=== PATIENT | male | born 1955 | race Caucasian/White ===

== ENCOUNTER 2023-05-05 14:37 | Outpatient (REF) | payer OTHER, SELFPAY | END 2023-05-05 14:38 | disposition home or self-care (01) | LOC: HO.LAB 14:37 | PROVIDERS: PCP Nurse Practitioner Family; Visit Provider Internal Medicine Nephrology | DX: I12.9 Hypertensive chronic kidney disease with stage 1 through stage 4 chronic kidney disease, or unspecified chronic kidney disease (principal); N18.31 Chronic kidney disease, stage 3a; N28.1 Cyst of kidney, acquired; Z90.5 Acquired absence of kidney | CPT/HCPCS: 99202 ==

== ENCOUNTER 2023-05-05 14:37 | Outpatient (AMB) | payer OTHER, SELFPAY ==
--- NOTE | 2023-05-05 14:41 | HO.NEPHOV ---
HPI HPI Comments History of Present Illness Details I had the delight of seeing Bobo in consultation for his chronic kidney disease. He has history of prostate cancer in 2020 which has been treated with external radiation beam therapy. Subsequently was found to have right renal mass and underwent right nephrectomy. He now has a nonmalignant cystic lesion on the left kidney. He was known to have lung nodules which are not metastatic lesions. He has no B symptoms. He closely follows up with Dr. Billy. He does not have any hematuria, dysuria, flank pain, night sweats, weight loss, fever. His serum creatinine has been going up. He does not take nonsteroidal anti-inflammatories on a regular basis. He is known to be hypertensive and is on amlodipine and losartan. He has not a diabetic. He denies chest pain, shortness of breath, paroxysmal nocturnal dyspnea, orthopnea, pedal edema, epistaxis, hemoptysis, photosensitivity, skin rashes, recurrent sinusitis, sore throat, new bone or back pain. He has no history of hepatitis. He is concerned about his decline in renal functions. [facility] Medical History (Updated 05/30/23 @ 07:05 by Mohamud Mancera MD) Benign neoplasm of unspecified kidney Personal history of malignant neoplasm of renal pelvis Personal history of malignant neoplasm of prostate Nocturia Benign prostatic hyperplasia with lower urinary tract symptoms Surgical History (Updated 05/05/23 @ 14:48 by Ni Mary MA) H/O total adrenalectomy History of nephrectomy, right History of tonsillectomy Family History (Updated 05/05/23 @ 13:19 by Ni Mary MA) Mother Hypertension Father Hypertension Leukemia Prostate cancer Social History (Updated 05/05/23 @ 14:48 by Ni Mary MA) Alcohol intake: current Comment: Rare Patient Tobacco Use Status: Never used Tobacco Vital Signs 05/05/23 14:44 Height 5 ft 10 in Weight 259 lb 6 oz BMI 37.2 BP 154/84 H Blood Pressure Location Rt brachial Position Sitting Pulse 90 Pulse Source Pulse Oximeter Pulse Oximetry (%) 98 Oxygen Delivery Method Room Air Physical Exam Vital Signs: Last Vital Signs Pulse 90 05/05/23 14:44 BP 154/84 H 05/05/23 14:44 Pulse Ox 98 05/05/23 14:44 Oxygen Delivery Method Room Air 05/05/23 14:44 BMI result Body Mass Index 37.2 Const General: comfortable and no acute distress Orientation/consciousness: patient oriented x3 HEENT Head: Yes normocephalic Mouth: Normal oral and palatal mucosa present Eyes EOM: EOMs intact bilaterally Neck Neck: Yes supple Resp Auscultation: clear to auscultation bilaterally Cardio Jugular venous distension: no JVD Rate: regular rate GI Palpation (GI): Soft to palpation Auscultation: normal bowel sounds General: Yes no CVA tenderness Back/Spine/Pelvis Back: no CVA tenderness Skin General skin exam: no rashes or lesions noted Neuro General: patient oriented x3 and moves all extremities Extrem General: Yes no pedal edema Assessment & Plan Assessment & Plan (1) CKD (chronic kidney disease) stage 3, GFR 30-59 ml/min: Code(s): N18.30 - Chronic kidney disease, stage 3 unspecified Qualifiers: Chronic kidney disease stage 3 subtype: stage 3a (GFR 45-59) Qualified Code(s): N18.31 - Chronic kidney disease, stage 3a (2) Hypertension: Code(s): I10 - Essential (primary) hypertension Qualifiers: Hypertension type: primary hypertension Qualified Code(s): I10 - Essential (primary) hypertension (3) Solitary kidney, acquired: Code(s): Z90.5 - Acquired absence of kidney (4) Renal cyst, acquired, left: Code(s): N28.1 - Cyst of kidney, acquired Plan Bobo has acquired solitary kidney status post right nephrectomy for renal cell carcinoma. He has history of prostate cancer. He has no metastatic lesions. He is closely followed by Dr. Billy. His urine output is good. His volume status is optimal. His blood pressure is at goal. He is tolerating angiotensin receptor cathy. He has not known to have any significant proteinuria. I shall follow-up his blood work and renal imaging studies. I ordered creatinine clearance. He should maintain good hydration and avoid nonsteroidal anti-inflammatories. He will benefit from weight loss. I did not make any medication changes today. All these have been discussed in detail. Further management is pending evolving data. Answered all questions. Orders: Orders US renal BI 05/05/23 N18.30 - Chronic kidney disease, stage 3 unspecified, I10 - Essential (primary) hypertension Blood Urea Nitrogen 05/08/23 I10 - Essential (primary) hypertension, N18.30 - Chronic kidney disease, stage 3 unspecified Complete Blood Count Auto Diff 05/08/23 I10 - Essential (primary) hypertension, N18.30 - Chronic kidney disease, stage 3 unspecified Complement C3 05/08/23 I10 - Essential (primary) hypertension, N18.30 - Chronic kidney disease, stage 3 unspecified Complement C4 05/08/23 I10 - Essential (primary) hypertension, N18.30 - Chronic kidney disease, stage 3 unspecified Phospholipase A2 Receptor Pnl 05/08/23 I10 - Essential (primary) hypertension, N18.30 - Chronic kidney disease, stage 3 unspecified Hepatitis B Core Antibody 05/08/23 I10 - Essential (primary) hypertension, N18.30 - Chronic kidney disease, stage 3 unspecified Creatinine Clearance Urine 05/08/23 I10 - Essential (primary) hypertension, N18.30 - Chronic kidney disease, stage 3 unspecified US renal doppler 05/05/23 N18.30 - Chronic kidney disease, stage 3 unspecified, I10 - Essential (primary) hypertension Electrolytes 05/08/23 I10 - Essential (primary) hypertension, N18.30 - Chronic kidney disease, stage 3 unspecified Calcium 05/08/23 I10 - Essential (primary) hypertension, N18.30 - Chronic kidney disease, stage 3 unspecified Creatinine 05/08/23 I10 - Essential (primary) hypertension, N18.30 - Chronic kidney disease, stage 3 unspecified Myeloperoxidase Antibody 05/08/23 I10 - Essential (primary) hypertension, N18.30 - Chronic kidney disease, stage 3 unspecified Proteinase 3 PR3 Antibodies 05/08/23 I10 - Essential (primary) hypertension, N18.30 - Chronic kidney disease, stage 3 unspecified Anti Glomerular Basement Memb 05/08/23 I10 - Essential (primary) hypertension, N18.30 - Chronic kidney disease, stage 3 unspecified Immunofixation Pnl, Serum 05/08/23 I10 - Essential (primary) hypertension, N18.30 - Chronic kidney disease, stage 3 unspecified Hepatitis B Surface Antigen 05/08/23 I10 - Essential (primary) hypertension, N18.30 - Chronic kidney disease, stage 3 unspecified Coding Level of Care Code New Pt Level 4 (56225) Diagnoses Stage 3a chronic kidney disease N18.31 Chronic kidney disease stage 3 subtype: stage 3a (GFR 45-59) Primary hypertension I10 Hypertension type: primary hypertension Solitary kidney, acquired Z90.5 Renal cyst, acquired, left N28.1 Results Reviewed Nephrology Results: Hgb 13.9 g/dl (14.0-18.0) L 05/08/23 WBC 5.9 X10*3/uL (4.8-10.8) 05/08/23 Plt Count 148 X10*3/uL (160-400) L 05/08/23 Sodium 139 mmol/L (135-145) 05/08/23 Potassium 4.7 mmol/L (3.3-5.1) 05/08/23 Chloride 108 mmol/L (96-108) 05/08/23 Carbon Dioxide 22 mmol/L (22-29) 05/08/23 BUN 24 mg/dL (9-16) H 05/08/23 Creatinine 1.68 mg/dL (0.5-1.4) H 05/08/23 Calcium 9.1 mg/dL (8.4-10.2) 05/08/23 Renal US 05/19/23
[2023-05-05 14:44] VITALS: BP 154/84; PULSE 90; O2SAT 98; BMI 37.2
== END 2023-05-05 15:26 | disposition home or self-care (01) ==
PROVIDERS: PCP Nurse Practitioner Family; Referring Provider Internal Medicine Endocrinology, Diabetes & Metabolism; Visit Provider Internal Medicine Nephrology
DX: N18.31 Chronic kidney disease, stage 3a (principal); I10 Essential (primary) hypertension; Z90.5 Acquired absence of kidney; N28.1 Cyst of kidney, acquired
CPT/HCPCS: 99204

== ENCOUNTER 2023-05-08 09:48 | Outpatient (REF) | payer OTHER, SELFPAY ==
[2023-05-08 11:02] LABS: Basophils Absolute Auto 0.1 X10*3/uL (0.0-0.2); Eosinophils Absolute Auto 0.2 X10*3/uL (0.0-0.4); Eosinophils Percent Auto 2.9 % (0-4); Hematocrit 41.3 % (42.0-52.0); Hemoglobin 13.9 g/dl (14.0-18.0); Imm Gran Abs Auto 0.03 X10*3/uL (0.00-0.03); Imm Gran Pct Auto 0.5 % (0.0-0.4); Lymphocytes Absolute Auto 1.4 X10*3/uL (1.2-4.9); Lymphocytes Percent Auto 24.4 % (20-40); MANUAL DIFF FLAG SCAN; Mean Corpuscular HGB Conc 33.7 g/dl (31.0-36.0); Mean Corpuscular Hemoglobin 30.6 pg (27.0-33.0); Mean Platelet Volume 11.9 fL (9.4-12.4); Monocytes Absolute Auto 0.5 X10*3/uL (0.1-1.2); Monocytes Percent Auto 7.7 % (2-11); Neutrophils Absolute Auto 3.7 x10*3/uL (2.0-8.3); Neutrophils Percent Auto 63.5 % (45-73); PLT CLUMP 1; Red Blood Count 4.54 X10*6/uL (4.60-5.80); Red Cell Distribution Width 13.2 % (11.0-16.0); SCAN SMEAR FLAG 1
[2023-05-08 11:33] LABS: Creatinine, mg/dL 51.93
[2023-05-08 12:36] LABS: Platelet Count 148 X10*3/uL (160-400); White Blood Count 5.9 X10*3/uL (4.8-10.8)
[2023-05-08 12:37] LABS: SLIDE REVIEW VERIFIED
[2023-05-08 13:21] LABS: Anion Gap 14 (12-20); Blood Urea Nitrogen 24 mg/dL (9-16); Calcium 9.1 mg/dL (8.4-10.2); Carbon Dioxide 22 mmol/L (22-29); Chloride 108 mmol/L (96-108); Estimated Glomerular Filt Rate 41; Potassium 4.7 mmol/L (3.3-5.1); Sodium 139 mmol/L (135-145)
[2023-05-08 13:23] LABS: Creatinine, 24Hr Urine 1.8 G/Day (1.0-2.0); Total Volume 24 Hour Urine 3500 mL
[2023-05-08 13:44] LABS: Creatinine (CrCl) 1.68 mg/dL (0.5-1.4); Creatinine Clearance 75.1 mL/min (85-125)
[2023-05-09 04:48] LABS: HBc Num1 0.06 S/CO (0.00-0.79); HBsAGNum1 0.28 S/CO (0.00-0.99); Hepatitis B Core Antibody Nonreactive (Nonreactive); Hepatitis B Surface Antigen Negative (Negative)
[2023-05-09 10:04] LABS: Complement C3 126 mg/dL (82-185)
[2023-05-10 14:28] LABS: IgA 295 mg/dL (70-320); IgG 837 mg/dL (600-1540); IgM 94 mg/dL (50-300)
[2023-05-11 22:14] LABS: Anti Glomerular Basement Memb <1.0 AI; Myeloperoxidase Antibody <1.0 AI; Proteinase 3 PR3 Antibodies <1.0 AI
[2023-05-12 20:52] LABS: Phospholipase A2 IgG ELISA <4 RU/mL; Phospholipase A2 IgG IFA NEGATIVE (NEGATIVE)
== END 2023-05-08 09:49 | disposition home or self-care (01) ==
LOC: HO.LAB 09:48
PROVIDERS: PCP Nurse Practitioner Family; Visit Provider Internal Medicine Nephrology
DX: I12.9 Hypertensive chronic kidney disease with stage 1 through stage 4 chronic kidney disease, or unspecified chronic kidney disease (principal); N18.30 Chronic kidney disease, stage 3 unspecified
CPT/HCPCS: 36415; 80051; 82310; 82565; 82575; 82784; 83520; 84520; 85025; 86021; 86160; 86255; 86334; 86704; 87340

== ENCOUNTER 2023-05-19 09:11 | Outpatient (REF) | payer OTHER, SELFPAY ==
--- NOTE | ~2023-05-19 | US_ITS ---
EXAMINATION: US RETROPERITONEAL LIMITED (RENAL ONLY) CLINICAL INFORMATION: Stage III chronic kidney disease. COMPARISON: None available. TECHNIQUE: Real-time ultrasound examination of the kidneys FINDINGS: RIGHT KIDNEY: Surgically absent. LEFT KIDNEY: 12.5 x 7.4 x 5.0 cm (SAG x AP x TRV). The kidney is normal in size, contour, and echogenicity. Renal cortical thickness is normal. No calculi could be seen. No hydronephrosis. Multiple left renal cortical simple cysts are found. The largest cyst is found in superior left renal cortex measuring 4.3 x 3.3 x 3.5 cm in size. The second largest simple cyst is seen in mid left kidney measuring 3.0 x 1.5 x 1.9 cm in size. A small, septated cyst is seen in mid left kidney measuring 1.1 x 1.3 x 1.0 cm in size, Bosniak category 2 lesion, for which no follow up imaging is recommended. US/US renal doppler IMPRESSION: 1. Status post right nephrectomy. 2. Multiple left renal cortical Bosniak category 1 and category 2 cystic lesions are found, for which no follow up imaging is recommended. 3. No evidence of left hydronephrosis or renal calculus. EXAMINATION: Doppler Ultrasound of the renal arteries. INDICATION: Stage III chronic kidney disease. TECHNIQUE: Multiple sonographic images of the kidneys were assessed for grayscale appearance and color Doppler flow. Color Doppler imaging and Doppler spectral analysis of the bilateral renal arteries are performed. FINDINGS: Right kidney is surgically absent. Left kidney is 12.5 cm in length with normal echo texture. No calcified renal stones with acoustic shadowing or caliectasis are seen. The left proximal renal artery peak systolic flow velocity is 66 cm/sec (normal < 180). The left mid renal artery peak systolic flow velocity is 82 cm/sec (normal < 180). The left distal renal artery peak systolic flow velocity is 93 cm/sec (normal < 180). The upper left renal artery resistive index is 0.63 (normal <0.8) The mid left renal artery resistive index is 0.58 (normal <0.8) The lower left renal artery resistive index is 0.64 (normal <0.8) Left renal vein is patent, showing normal phasic venous Doppler flow spectrum. IMPRESSION: 1. Status post right nephrectomy. 2. No sonographic evidence of left renal artery stenosis.
== END 2023-05-19 09:12 | disposition home or self-care (01) ==
LOC: HO.US 09:11
PROVIDERS: PCP Nurse Practitioner Family; Visit Provider Internal Medicine Nephrology
DX: I12.9 Hypertensive chronic kidney disease with stage 1 through stage 4 chronic kidney disease, or unspecified chronic kidney disease (principal); N18.30 Chronic kidney disease, stage 3 unspecified
CPT/HCPCS: 76775; 93975

== ENCOUNTER 2023-05-31 14:12 | Outpatient (AMB) | payer OTHER, SELFPAY ==
[2023-05-31 14:17] VITALS: BP 150/90; PULSE 86; O2SAT 95; BMI 38.0
--- NOTE | 2023-05-31 14:17 | HO.NEPHOV ---
HPI HPI Comments History of Present Illness Details I had the delight of seeing Bobo in follow up for his chronic kidney disease. He has history of prostate cancer in 2020 which has been treated with external radiation beam therapy. Subsequently was found to have right renal mass and underwent right nephrectomy. He now has a nonmalignant cystic lesion on the left kidney. He was known to have lung nodules which are not metastatic lesions. He has no B symptoms. He closely follows up with Dr. Billy. He does not have any hematuria, dysuria, flank pain, night sweats, weight loss, fever. His serum creatinine had been going up. He does not take nonsteroidal anti-inflammatories on a regular basis. He is known to be hypertensive and is on amlodipine and losartan. He has not a diabetic. He denies chest pain, shortness of breath, paroxysmal nocturnal dyspnea, orthopnea, pedal edema, epistaxis, hemoptysis, photosensitivity, skin rashes, recurrent sinusitis, sore throat, new bone or back pain. He has no history of hepatitis. He is concerned about his decline in renal functions. [facility] Medical History (Updated 05/30/23 @ 07:05 by Mohamud Mancera MD) Benign neoplasm of unspecified kidney Personal history of malignant neoplasm of renal pelvis Personal history of malignant neoplasm of prostate Nocturia Benign prostatic hyperplasia with lower urinary tract symptoms Surgical History (Updated 05/05/23 @ 14:48 by Ni Mary MA) H/O total adrenalectomy History of nephrectomy, right History of tonsillectomy Family History (Updated 05/05/23 @ 13:19 by Ni Mary MA) Mother Hypertension Father Hypertension Leukemia Prostate cancer Social History (Updated 05/05/23 @ 14:48 by Ni Mary MA) Alcohol intake: current Comment: Rare Patient Tobacco Use Status: Never used Tobacco Vital Signs 05/31/23 14:17 Height 5 ft 10 in Weight 265 lb 2 oz BMI 38.0 BP 150/90 H Blood Pressure Location Lt brachial Position Sitting Pulse 86 Pulse Source Pulse Oximeter Pulse Oximetry (%) 95 Oxygen Delivery Method Room Air Physical Exam Const General: comfortable and no acute distress Orientation/consciousness: patient oriented x3 HEENT Head: Yes normocephalic Mouth: Normal oral and palatal mucosa present Eyes EOM: EOMs intact bilaterally Neck Neck: Yes supple Resp Auscultation: clear to auscultation bilaterally Cardio Jugular venous distension: no JVD Rate: regular rate GI Palpation (GI): Soft to palpation Auscultation: normal bowel sounds General: Yes no CVA tenderness Back/Spine/Pelvis Back: no CVA tenderness Skin General skin exam: no rashes or lesions noted Neuro General: patient oriented x3 and moves all extremities Extrem General: Yes no pedal edema Assessment & Plan Assessment & Plan (1) Renal cyst, acquired, left: Code(s): N28.1 - Cyst of kidney, acquired (2) Solitary kidney, acquired: Code(s): Z90.5 - Acquired absence of kidney (3) Hypertension: Code(s): I10 - Essential (primary) hypertension Qualifiers: Hypertension type: primary hypertension Qualified Code(s): I10 - Essential (primary) hypertension (4) CKD (chronic kidney disease) stage 3, GFR 30-59 ml/min: Code(s): N18.30 - Chronic kidney disease, stage 3 unspecified Qualifiers: Chronic kidney disease stage 3 subtype: stage 3a (GFR 45-59) Qualified Code(s): N18.31 - Chronic kidney disease, stage 3a Plan Bobo has acquired solitary kidney status post right nephrectomy for renal cell carcinoma. He has history of prostate cancer. He has no metastatic lesions. He is closely followed by Dr. Billy. His urine output is good. His volume status is optimal. His blood pressure is at goal. He is tolerating angiotensin receptor cathy. He has not known to have any significant proteinuria. His renal functions are back to baseline. He does not have any renal artery stenosis by imaging. His creatinine clearance was 75 mL/minute. He should maintain good hydration and avoid nonsteroidal anti-inflammatories. He will benefit from weight loss. I did not make any medication changes today. All these have been discussed in detail. Further management is pending evolving data. Answered all questions. Orders: Orders Creatinine Today I10 - Essential (primary) hypertension, N18.31 - Chronic kidney disease, stage 3a, N28.1 - Cyst of kidney, acquired, Z90.5 - Acquired absence of kidney Calcium Today I10 - Essential (primary) hypertension, N18.31 - Chronic kidney disease, stage 3a, N28.1 - Cyst of kidney, acquired, Z90.5 - Acquired absence of kidney Blood Urea Nitrogen Today I10 - Essential (primary) hypertension, N18.31 - Chronic kidney disease, stage 3a, N28.1 - Cyst of kidney, acquired, Z90.5 - Acquired absence of kidney Electrolytes Today I10 - Essential (primary) hypertension, N18.31 - Chronic kidney disease, stage 3a, N28.1 - Cyst of kidney, acquired, Z90.5 - Acquired absence of kidney Protein Creatinine Ratio, Ur Today I10 - Essential (primary) hypertension, N18.31 - Chronic kidney disease, stage 3a, N28.1 - Cyst of kidney, acquired, Z90.5 - Acquired absence of kidney Coding Level of Care Code Est Pt Level 4 (94755) Diagnoses Renal cyst, acquired, left N28.1 Solitary kidney, acquired Z90.5 Primary hypertension I10 Hypertension type: primary hypertension Stage 3a chronic kidney disease N18.31 Chronic kidney disease stage 3 subtype: stage 3a (GFR 45-59) Results Reviewed Nephrology Results: Hgb 13.9 g/dl (14.0-18.0) L 05/08/23 WBC 5.9 X10*3/uL (4.8-10.8) 05/08/23 Plt Count 148 X10*3/uL (160-400) L 05/08/23 Sodium 139 mmol/L (135-145) 05/08/23 Potassium 4.7 mmol/L (3.3-5.1) 05/08/23 Chloride 108 mmol/L (96-108) 05/08/23 Carbon Dioxide 22 mmol/L (22-29) 05/08/23 BUN 24 mg/dL (9-16) H 05/08/23 Creatinine 1.68 mg/dL (0.5-1.4) H 05/08/23 Calcium 9.1 mg/dL (8.4-10.2) 05/08/23 Renal US 05/19/23
== END 2023-05-31 14:31 | disposition home or self-care (01) ==
PROVIDERS: PCP Nurse Practitioner Family; Visit Provider Internal Medicine Nephrology
DX: N28.1 Cyst of kidney, acquired (principal); Z90.5 Acquired absence of kidney; I10 Essential (primary) hypertension; N18.31 Chronic kidney disease, stage 3a
CPT/HCPCS: 99214

== ENCOUNTER → 2023-05-31 14:12 | Outpatient (BNVA) | payer OTHER, SELFPAY | PROVIDERS: PCP Nurse Practitioner Family; Visit Provider Internal Medicine Nephrology | DX: I12.9 Hypertensive chronic kidney disease with stage 1 through stage 4 chronic kidney disease, or unspecified chronic kidney disease (principal); N18.31 Chronic kidney disease, stage 3a; N28.1 Cyst of kidney, acquired; Z90.5 Acquired absence of kidney | CPT/HCPCS: 99212 ==

== ENCOUNTER 2023-09-01 14:09 | Outpatient (REF) | payer OTHER, SELFPAY ==
--- NOTE | ~2023-09-01 | MR_ITS ---
EXAMINATION: MR ABDOMEN WITHOUT AND WITH CONTRAST CLINICAL INFORMATION: History of kidney cancer with right nephrectomy. COMPARISON: Renal ultrasound 05/19/2023. TECHNIQUE: MR abdomen was performed without and with use of 10 mL intravenous Gadavist gadolinium contrast. Postcontrast images are performed in multiphase dynamic sequences. Imaging was performed in 3 planes. FINDINGS: LUNG BASES: The visualized lung bases are unremarkable. LIVER, GALLBLADDER, AND BILIARY TREE: Loss of signal in the opposed phase dual-echo images consistent with hepatic steatosis, otherwise the liver is normal in size and morphology. A few simple-appearing cysts are seen. No suspicious liver lesion. No biliary ductal dilatation. The gallbladder is unremarkable with no evidence of gallbladder wall thickening, or obvious pericholecystic inflammatory changes. PANCREAS: Incidentally noted pancreatic divisum anatomy with the main dorsal pancreatic duct draining into a separate minor duodenal papilla (image 26 series 4). Otherwise, normal pancreas. SPLEEN: Normal. ADRENAL GLANDS: The right adrenal gland is not well seen, possibly surgically removed. Normal left adrenal gland. KIDNEYS AND URETERS: Status post right-sided total nephrectomy. There is a 1.2 x 0.7 cm T2 hypointense nodule with peripheral delayed enhancement in the postoperative bed immediately abutting the posterior wall of the descending duodenum (102:66). In the lower pole of the left kidney, there is a 2.5 x 2.4 cm enhancing lesion (102:97) demonstrating heterogeneous intermediate T2 signal and heterogeneous enhancement that is more prominent on the arterial phase with relative hypointensity compared to the cortex on the portal venous phase and no evidence of fat or proteinaceous/hemorrhagic debris. In the lower pole of the left kidney there is an approximately 7.8 x 6.4 cm macroscopic fat-containing lesion that extends around the kidney in the perirenal space with direct capsular abutment. Although a clear renal claw sign or feeding vessel is not seen. There is a well-defined homogeneously precontrast T1 hyperintense exophytic cyst from the lateral cortex of the upper left kidney measuring 4.4 cm, most consistent with a proteinaceous/hemorrhagic Bosniak 2 cyst, for which no imaging follow-up is recommended. Multiple additional simple-appearing Bosniak 1 cortical cysts are noted in the left kidney. GASTROINTESTINAL TRACT: No evidence of bowel obstruction or ascites. ABDOMINAL WALL: No significant hernia is appreciated. LYMPH NODES: No lymphadenopathy. VASCULAR: Normal caliber of the abdominal aorta. The renal veins are patent. OSSEOUS STRUCTURES: No acute or aggressive-appearing osseous findings. MR/MR abdomen wo/w con IMPRESSION: 1. Status post right-sided total nephrectomy. There is a 1.2 cm peripherally enhancing nodule in the postoperative bed immediately abutting the posterior wall of the descending duodenum which could represent postoperative fibrosis/collection or small recurrent tumor. This is the first baseline postoperative MRI available. Recommend short-term follow-up in 3-6 months. 2. Enhancing 2.5 cm mass in the lower pole of the left kidney consistent with a solid renal neoplasms such as renal cell carcinoma. 3. 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 Further characterization with CT abdomen with IV contrast might be helpful. 4. Hepatic steatosis. 5. Incidentally noted pancreatic divisum anatomy.
[2023-09-01] MEDS: gadobutroL 10 ML VIAL IVPUSH (15:36)
== END 2023-09-01 14:10 | disposition home or self-care (01) ==
LOC: HO.MRI 14:09
PROVIDERS: PCP Internal Medicine; Visit Provider Physician Assistant
DX: D30.00 Benign neoplasm of unspecified kidney (principal); Z85.53 Personal history of malignant neoplasm of renal pelvis
CPT/HCPCS: 74183; A9585

== ENCOUNTER 2023-10-21 19:57 | Outpatient (REF) | payer OTHER, SELFPAY ==
--- NOTE | ~2023-10-21 | MR_ITS ---
EXAMINATION: MR BRAIN WITHOUT CONTRAST CLINICAL INFORMATION: Decreased memory COMPARISON: None TECHNIQUE: Multiplanar multisequence MR imaging of the brain was obtained without intravenous contrast. FINDINGS: There is no acute infarct on diffusion-weighted imaging. There is no intracranial hemorrhage on iron-sensitive imaging. No extra-axial collection or mass effect/herniation. Scattered periventricular and deep white matter T2 FLAIR hyperintensities consistent with mild underlying microangiopathy. Small chronic lacunar infarcts in the right cerebellar hemisphere. Small region of nonspecific patchy T2/FLAIR hyperintense signal in the right cerebellar deep white matter (series 8 image 6). No hydrocephalus. Mild age-appropriate generalized cerebral volume loss with commensurate sulcal and ventricular prominence. The major flow voids at the skull base are preserved. The midline structures are normal. The cerebellar tonsils are normally positioned. The craniocervical junction is normal. Marrow signal is within normal limits. The visualized soft tissues are without significant abnormality. Retention cysts are noted in the sphenoid sinus. Small bilateral mastoid fluid, left greater than right. MR/MR head/brain wo con IMPRESSION: 1. Mild chronic white matter microangiopathy and small chronic lacunar infarcts in the right cerebellar hemisphere. Small region of patchy T2/FLAIR hyperintense signal in the right cerebellar deep white matter is nonspecific but may also reflect sequela of chronic microvascular ischemia. 2. Mild age-appropriate generalized cerebral volume loss. Electronically signed by: Calderon Funes MD 10/24/2023 06:18 PM EDT
== END 2023-10-21 19:58 | disposition home or self-care (01) ==
LOC: HO.MRI 19:57
PROVIDERS: PCP Internal Medicine; Visit Provider Internal Medicine
DX: I69.911 Memory deficit following unspecified cerebrovascular disease (principal)
CPT/HCPCS: 70551

== ENCOUNTER 2023-10-28 09:16 | Outpatient (REF) | payer OTHER, SELFPAY ==
[2023-10-28 10:56] LABS: Anion Gap 12 (12-20); Blood Urea Nitrogen 22 mg/dL (9-16); Calcium 9.5 mg/dL (8.4-10.2); Carbon Dioxide 23 mmol/L (22-29); Chloride 107 mmol/L (96-108); Estimated Glomerular Filt Rate 36; Potassium 4.1 mmol/L (3.3-5.1); Sodium 138 mmol/L (135-145)
== END 2023-10-28 09:17 | disposition home or self-care (01) ==
LOC: HO.LAB 09:16
PROVIDERS: PCP Internal Medicine; Visit Provider Internal Medicine Nephrology
DX: I10 Essential (primary) hypertension (principal); N18.30 Chronic kidney disease, stage 3 unspecified; N18.31 Chronic kidney disease, stage 3a; Z90.5 Acquired absence of kidney; N28.1 Cyst of kidney, acquired
CPT/HCPCS: 36415; 80051; 82310; 82565; 84520

== ENCOUNTER 2023-10-30 | Outpatient (REF) | payer OTHER, SELFPAY ==
[2023-10-31 08:59] LABS: Creatinine Urine 46.55 mg/dL; Protein/Creatinine Ratio, Ur 0.71 (<0.2); Total Protein Urine Random 33 mg/dL (<12)
== END 2023-10-30 00:01 | disposition home or self-care (01) ==
LOC: HO.LNP
PROVIDERS: Visit Provider Internal Medicine Nephrology
DX: N28.1 Cyst of kidney, acquired (principal); Z90.5 Acquired absence of kidney; I10 Essential (primary) hypertension; N18.31 Chronic kidney disease, stage 3a
CPT/HCPCS: 82570; 84156

== ENCOUNTER 2023-10-31 12:59 | Outpatient (AMB) | payer OTHER, SELFPAY ==
--- NOTE | 2023-10-31 13:06 | HO.NEPHOV_ITS ---
Vital Signs 10/31/23 13:07 Height 5 ft 10 in Weight 255 lb BMI 36.6 BP 116/70 Blood Pressure Location Lt brachial Position Sitting Pulse 83 Pulse Source Pulse Oximeter Pulse Oximetry (%) 96 Oxygen Delivery Method Room Air Intake Visit Reasons: CKD FU/ Conf Circuit Board Inspector Required: No Accompanied by: Self / Same As Patient Allergies No Known Allergies Allergy (Verified 10/31/23 13:09) Medication List - Last Reconciled 10/31/23 by Noel Rosales MD amlodipine 10 mg PO DAILY aripiprazole 5 mg PO DAILY losartan 25 mg PO DAILY multivitamin 1 tab PO DAILY simvastatin 80 mg PO QDAY venlafaxine ER 150 mg PO DAILY vitamins A,C,N-htxk-ibrjez 4,296 mcg-226 mg-90 mg (ICaps AREDS) 1 cap PO DAILY HPI Comments Details: Bobo was today for semiannual follow-up. he has history of prostate cancer in 2019 which has been treated with external radiation beam therapy. Subsequently was found to have right renal mass and underwent right nephrectomy. He now has a nonmalignant cystic lesion on the left kidney. He was known to have lung nodules which are not metastatic lesions. He has no B symptoms. He closely follows up with Dr. Billy. He does not have any hematuria, dysuria, flank pain, night sweats, weight loss, fever. His serum creatinine had been going up. He does not take nonsteroidal anti- inflammatories on a regular basis. He is known to be hypertensive and is on amlodipine and losartan. He has not a diabetic. He denies chest pain, shortness of breath, paroxysmal nocturnal dyspnea, orthopnea, pedal edema, epistaxis, hemoptysis, photosensitivity, skin rashes, recurrent sinusitis, sore throat, new bone or back pain. He has no history of hepatitis. He is concerned about his decline in renal functions. [facility] Medical History (Updated 05/30/23 @ 07:05 by Mohamud Mancera MD) Benign neoplasm of unspecified kidney Personal history of malignant neoplasm of renal pelvis Personal history of malignant neoplasm of prostate Nocturia Benign prostatic hyperplasia with lower urinary tract symptoms Surgical History H/O total adrenalectomy History of nephrectomy, right History of tonsillectomy Family History Mother Hypertension Father Hypertension Leukemia Prostate cancer Social History Alcohol intake: current Comment: Rare Patient Tobacco Use Status: Never used Tobacco Physical Exam Vital Signs: Last Vital Signs Pulse 83 10/31/23 13:07 BP 116/70 10/31/23 13:07 Pulse Ox 96 10/31/23 13:07 Oxygen Delivery Method Room Air 10/31/23 13:07 BMI result Body Mass Index 36.6 Const General: comfortable; No acute distress Orientation/consciousness: patient oriented x3 Eyes General: appearance normal, both eyes and all related structures Visual Stein: normal visual stein by confrontation Neck Neck: Yes supple and Yes no JVD Resp Effort & Inspection: normal respiratory effort and respiratory effort not decreased Auscultation: rhonchi Cardio Palpation: no palpable S3 and no palpable S4 Heart sounds: no rubs GI Inspection: Yes normal to inspection Palpation (GI): Soft to palpation Percussion: Yes normal to percussion Auscultation: normal bowel sounds General: Yes no CVA tenderness Back/Spine/Pelvis Back: no CVA tenderness Skin General skin exam: no petechiae and no purpura Neuro General: patient oriented x3 and no focal motor deficits Extrem General: No clubbing and No edema Results Reviewed Nephrology Results: Hgb 13.9 g/dl (14.0-18.0) L 05/08/23 WBC 5.9 X10*3/uL (4.8-10.8) 05/08/23 Plt Count 148 X10*3/uL (160-400) L 05/08/23 Sodium 138 mmol/L (135-145) 10/28/23 Potassium 4.1 mmol/L (3.3-5.1) 10/28/23 Chloride 107 mmol/L (96-108) 10/28/23 Carbon Dioxide 23 mmol/L (22-29) 10/28/23 BUN 22 mg/dL (9-16) H 10/28/23 Creatinine 1.85 mg/dL (0.5-1.4) H 10/28/23 Calcium 9.5 mg/dL (8.4-10.2) 10/28/23 Urine Creatinine 46.55 mg/dL 10/30/23 Protein/Creatinin Ratio 0.71 (<0.2) H 10/30/23 Renal US 05/19/23 Assessment & Plan Assessment & Plan (1) CKD (chronic kidney disease) stage 3, GFR 30-59 ml/min: Code(s): N18.30 - Chronic kidney disease, stage 3 unspecified Category: Medical Qualifiers: Chronic kidney disease stage 3 subtype: stage 3a (GFR 45-59) Qualified Code(s): N18.31 - Chronic kidney disease, stage 3a (2) Solitary kidney, acquired: Code(s): Z90.5 - Acquired absence of kidney Category: Medical (3) Renal cyst, acquired, left: Code(s): N28.1 - Cyst of kidney, acquired Category: Medical (4) Hypertension: Code(s): I10 - Essential (primary) hypertension Category: Medical Qualifiers: Hypertension type: primary hypertension Qualified Code(s): I10 - Essential (primary) hypertension Plan Bobo has acquired solitary kidney status post right nephrectomy for renal cell carcinoma. He has history of prostate cancer. He has no metastatic lesions. He is closely followed by Dr. Billy. His urine output is good. His volume status is optimal. His blood pressure is at goal. He is tolerating angiotensin receptor cathy. He has not known to have any significant proteinuria. Mild bump in serum creatinine. Most likely due to altered hemodynamics versus natural progression. He does not have any renal artery stenosis by imaging. . He should maintain good hydration and avoid nonsteroidal anti-inflammatories. He will benefit from weight loss. I did not make any medication changes today. Orders: Orders Basic Metabolic Panel 6 Months N18.31 - Chronic kidney disease, stage 3a, N28.1 - Cyst of kidney, acquired, Z90.5 - Acquired absence of kidney Complete Blood Count Auto Diff 6 Months N18.31 - Chronic kidney disease, stage 3a, N28.1 - Cyst of kidney, acquired, Z90.5 - Acquired absence of kidney Coding Level of Care Code Est Pt Level 4 (93586) Diagnoses Stage 3a chronic kidney disease N18.31 Chronic kidney disease stage 3 subtype: stage 3a (GFR 45-59) Solitary kidney, acquired Z90.5 Renal cyst, acquired, left N28.1 Primary hypertension I10 Hypertension type: primary hypertension
[2023-10-31 13:07] VITALS: BP 116/70; PULSE 83; O2SAT 96; BMI 36.6
== END 2023-10-31 13:23 | disposition home or self-care (01) ==
PROVIDERS: PCP Nurse Practitioner Family; Visit Provider Internal Medicine Hypertension Specialist
DX: I12.9 Hypertensive chronic kidney disease with stage 1 through stage 4 chronic kidney disease, or unspecified chronic kidney disease (principal); N18.31 Chronic kidney disease, stage 3a; Z90.5 Acquired absence of kidney; N28.1 Cyst of kidney, acquired
CPT/HCPCS: 99214

== ENCOUNTER → 2023-10-31 12:59 | Outpatient (BNVA) | payer OTHER, SELFPAY | PROVIDERS: PCP Nurse Practitioner Family; Visit Provider Internal Medicine Hypertension Specialist | DX: I12.9 Hypertensive chronic kidney disease with stage 1 through stage 4 chronic kidney disease, or unspecified chronic kidney disease (principal); N18.31 Chronic kidney disease, stage 3a; N28.1 Cyst of kidney, acquired; Z90.5 Acquired absence of kidney; Z85.528 Personal history of other malignant neoplasm of kidney | CPT/HCPCS: 99212 ==

== ENCOUNTER 2023-12-04 10:15 | Outpatient (REF) | payer OTHER, SELFPAY ==
[2023-12-04 12:45] LABS: TSH reflex Free T4 0.75 uIU/mL (0.32-4.0)
[2023-12-04 12:50] LABS: Anion Gap 13 (12-20); Blood Urea Nitrogen 26 mg/dL (9-16); Calcium 9.1 mg/dL (8.4-10.2); Carbon Dioxide 25 mmol/L (22-29); Chloride 105 mmol/L (96-108); Estimated Glomerular Filt Rate 33; Sodium 139 mmol/L (135-145)
[2023-12-04 13:01] LABS: Folate 12.2 ng/mL (> or = 4.0); Vitamin B12 905 pg/mL (200-900)
[2023-12-05 17:38] LABS: Homocysteine 16.9 umol/L (<11.4)
[2023-12-07 20:13] LABS: Methylmalonic Acid 206 nmol/L (69-390)
== END 2023-12-04 10:16 | disposition home or self-care (01) ==
LOC: HO.LAB 10:15
PROVIDERS: Absent Provider Internal Medicine Nephrology; PCP Internal Medicine; Visit Provider Psychiatry & Neurology Neurology
DX: N18.31 Chronic kidney disease, stage 3a (principal); G31.84 Mild cognitive impairment of uncertain or unknown etiology; N28.1 Cyst of kidney, acquired; Z90.5 Acquired absence of kidney; I10 Essential (primary) hypertension
CPT/HCPCS: 36415; 80051; 82310; 82565; 82607; 82746; 83090; 83921; 84443; 84520

== ENCOUNTER 2023-12-20 14:37 | Outpatient (AMB) | payer OTHER, SELFPAY ==
--- NOTE | 2023-12-20 14:41 | HO.NEPHOV_ITS ---
Vital Signs 12/20/23 14:43 Height 5 ft 10 in Weight 257 lb 2 oz BMI 36.9 BP 120/78 Blood Pressure Location Rt brachial Position Sitting Pulse 69 Pulse Source Pulse Oximeter Pulse Oximetry (%) 97 Oxygen Delivery Method Room Air Intake Visit Reasons: Per TOD Steam Table Attendant Required: No Accompanied by: Spouse Allergies No Known Allergies Allergy (Verified 12/20/23 14:42) HPI Comments Details: Bobo was seen in follow up for his chronic kidney disease. He has history of prostate cancer in 2019 which has been treated with external radiation beam therapy. Subsequently was found to have right renal mass and underwent right nephrectomy. He now has a nonmalignant cystic lesion on the left kidney. He was known to have lung nodules which are not metastatic lesions. He has no B symptoms. He closely follows up with Dr. Billy. He does not have any hematuria, dysuria, flank pain, night sweats, weight loss, fever. His serum creatinine had been going up. He does not take nonsteroidal anti-inflammatories on a regular basis. He is known to be hypertensive and is on amlodipine and losartan. He has not a diabetic. He denies chest pain, shortness of breath, paroxysmal nocturnal dyspnea, orthopnea, pedal edema, epistaxis, hemoptysis, photosensitivity, skin rashes, recurrent sinusitis, sore throat, new bone or back pain. He has no history of hepatitis. He had a biopsy of the lesion on the solitary kidney which was found to be benign. His serum creatinine has gone up from baseline. [facility] Medical History (Updated 12/20/23 @ 15:11 by Mohamud Mancera MD) Benign neoplasm of unspecified kidney Personal history of malignant neoplasm of renal pelvis Personal history of malignant neoplasm of prostate Nocturia Benign prostatic hyperplasia with lower urinary tract symptoms Surgical History H/O total adrenalectomy History of nephrectomy, right History of tonsillectomy Family History Mother Hypertension Father Hypertension Leukemia Prostate cancer Social History Alcohol intake: current Comment: Rare Patient Tobacco Use Status: Never used Tobacco Review of Systems Const All systems reviewed & are unremarkable except as noted in HPI and below Physical Exam Vital Signs: Last Vital Signs Pulse 69 12/20/23 14:43 BP 120/78 12/20/23 14:43 Pulse Ox 97 12/20/23 14:43 Oxygen Delivery Method Room Air 12/20/23 14:43 BMI result Body Mass Index 36.9 Const General: comfortable and no acute distress Orientation/consciousness: patient oriented x3 HEENT Head: Yes normocephalic Mouth: Normal oral and palatal mucosa present Eyes EOM: EOMs intact bilaterally Neck Neck: Yes supple Resp Auscultation: clear to auscultation bilaterally Cardio Jugular venous distension: no JVD Rate: regular rate GI Palpation (GI): Soft to palpation Auscultation: normal bowel sounds General: Yes no CVA tenderness Back/Spine/Pelvis Back: no CVA tenderness Skin General skin exam: no rashes or lesions noted Neuro General: patient oriented x3 and moves all extremities Extrem General: Yes no pedal edema Results Reviewed Nephrology Results: Hgb 13.9 g/dl (14.0-18.0) L 05/08/23 WBC 5.9 X10*3/uL (4.8-10.8) 05/08/23 Plt Count 148 X10*3/uL (160-400) L 05/08/23 Sodium 139 mmol/L (135-145) 12/04/23 Potassium 4.0 mmol/L (3.3-5.1) 12/04/23 Chloride 105 mmol/L (96-108) 12/04/23 Carbon Dioxide 25 mmol/L (22-29) 12/04/23 BUN 26 mg/dL (9-16) H 12/04/23 Creatinine 2.00 mg/dL (0.5-1.4) H 12/04/23 Calcium 9.1 mg/dL (8.4-10.2) 12/04/23 Urine Creatinine 46.55 mg/dL 10/30/23 Protein/Creatinin Ratio 0.71 (<0.2) H 10/30/23 Renal US 05/19/23 Assessment & Plan Assessment & Plan (1) Solitary kidney, acquired: Code(s): Z90.5 - Acquired absence of kidney Category: Medical (2) Renal cyst, acquired, left: Code(s): N28.1 - Cyst of kidney, acquired Category: Medical (3) Hypertension: Code(s): I10 - Essential (primary) hypertension Category: Medical Qualifiers: Hypertension type: primary hypertension Qualified Code(s): I10 - Essential (primary) hypertension (4) CKD (chronic kidney disease) stage 3, GFR 30-59 ml/min: Code(s): N18.30 - Chronic kidney disease, stage 3 unspecified Category: Medical Qualifiers: Chronic kidney disease stage 3 subtype: stage 3a (GFR 45-59) Qualified Code(s): N18.31 - Chronic kidney disease, stage 3a (5) Acute kidney injury: Code(s): N17.9 - Acute kidney failure, unspecified Category: Medical Plan Bobo has acquired solitary kidney status post right nephrectomy for renal cell carcinoma. He has history of prostate cancer. He has no metastatic lesions. He is closely followed by Dr. Billy. His urine output is good. His volume status is optimal. His blood pressure is at goal. I held his ARB given rise in serum creatinine. He has not known to have any significant proteinuria. He does not have any renal artery stenosis by imaging. His last creatinine clearance was 75 mL/minute prior to this OLIVIA. I started him on Carvedilol to 6.25 mg bid. He should maintain good hydration and avoid nonsteroidal anti- inflammatories. He will benefit from weight loss. I did not make any other medication changes today. All these have been discussed in detail. Further management is pending evolving data. Answered all questions. Orders: Orders 2 Creatinine 6 Weeks I10 - Essential (primary) hypertension, N17.9 - Acute kidney failure, unspecified, N18.31 - Chronic kidney disease, stage 3a, N28.1 - Cyst of kidney, acquired, Z90.5 - Acquired absence of kidney Blood Urea Nitrogen 6 Weeks I10 - Essential (primary) hypertension, N17.9 - Acute kidney failure, unspecified, N18.31 - Chronic kidney disease, stage 3a, N28.1 - Cyst of kidney, acquired, Z90.5 - Acquired absence of kidney Electrolytes 6 Weeks I10 - Essential (primary) hypertension, N17.9 - Acute kidney failure, unspecified, N18.31 - Chronic kidney disease, stage 3a, N28.1 - Cyst of kidney, acquired, Z90.5 - Acquired absence of kidney Medications: New carvedilol must administer with a meal/food 6.25 mg PO BID 60 tabs 4RF Coding Level of Care Code Est Pt Level 4 (26642) Diagnoses Solitary kidney, acquired Z90.5 Renal cyst, acquired, left N28.1 Primary hypertension I10 Hypertension type: primary hypertension Stage 3a chronic kidney disease N18.31 Chronic kidney disease stage 3 subtype: stage 3a (GFR 45-59) Acute kidney injury N17.9
[2023-12-20 14:43] VITALS: BP 120/78; PULSE 69; O2SAT 97; BMI 36.9
== END 2023-12-20 15:20 | disposition home or self-care (01) ==
LOC: HO.HKA 14:38
PROVIDERS: PCP Internal Medicine; Visit Provider Internal Medicine Nephrology
DX: N28.1 Cyst of kidney, acquired (principal); I12.9 Hypertensive chronic kidney disease with stage 1 through stage 4 chronic kidney disease, or unspecified chronic kidney disease; N18.31 Chronic kidney disease, stage 3a; Z90.5 Acquired absence of kidney; N17.9 Acute kidney failure, unspecified
CPT/HCPCS: 99214

== ENCOUNTER → 2023-12-20 14:37 | Outpatient (BNVA) | payer OTHER, SELFPAY | PROVIDERS: PCP Internal Medicine; Visit Provider Internal Medicine Nephrology | DX: C61 Malignant neoplasm of prostate (principal); I12.9 Hypertensive chronic kidney disease with stage 1 through stage 4 chronic kidney disease, or unspecified chronic kidney disease; N18.31 Chronic kidney disease, stage 3a; N17.9 Acute kidney failure, unspecified; N28.1 Cyst of kidney, acquired; Z92.3 Personal history of irradiation; Z90.5 Acquired absence of kidney | CPT/HCPCS: 99212 ==

== ENCOUNTER → 2024-01-03 12:44 | Outpatient (REF) | payer OTHER, SELFPAY | LOC: HO.SL 12:44 | PROVIDERS: PCP Internal Medicine; Visit Provider Psychiatry & Neurology Neurology | DX: G47.33 Obstructive sleep apnea (adult) (pediatric) (principal) | CPT/HCPCS: 95806 ==

== ENCOUNTER → 2024-01-03 19:00 | Outpatient (BNV) | payer OTHER, SELFPAY | PROVIDERS: PCP Internal Medicine; Visit Provider Psychiatry & Neurology Neurology | DX: G47.33 Obstructive sleep apnea (adult) (pediatric) (principal) | CPT/HCPCS: 95806 ==

== ENCOUNTER 2024-02-15 16:14 | Outpatient (REF) | payer OTHER, SELFPAY ==
--- OUTSIDE RECORDS SUMMARY | 2024-02-15 17:22 | XMS_ITS | Continuity of Care Document ---
Author Name [facility] Organization [facility] Care Team Providers Care Museum Educator Name Role Phone [facility] Unavailable Unavailable Problems Combined list of problems from 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 It does not include entries that were removed or entered in error. Problem Status Onset Date Problem Type Date of Resolution Comments Source Joint pain in both shoulders Active 024 Condition Mar 21, 2023 Entered By: ISABELA ASENCIO Comment: Osteoarthritis [facility] Memory deficit Active 024 Condition Sep 26, 2023 Entered By: ISABELA ASENCIO Comment: Confirmed by neuropsychology testing. [facility] visit for: services physical Inactive Condition [facility] Abdominal aortic aneurysm Active Condition Feb 23, 2022 Entered By: ROSELYN PEREZ Comment: 02/2022 3.0 cm infrarenal AAA: recheck AAA u/s screen 02/2025 [facility] Alcohol Abuse (SCT [id number]) Active Condition [facility] Aneurysm Active Condition Apr 06 Entered By: ROSELYN PEREZ Comment: celiac and ascending aortic aneurysm, recheck 03/2023 [facility] Aneurysm of iliac artery Active Condition Mar 23, 2021 Entered By: ALCIDES CRAWFORD Comment: distal right, 1.9cm, f/u pelvic CT due Feb 2022 [facility] Aneurysm of iliac artery Active Condition [facility] Anxiety (SCT [id number]) Active Condition [facility] 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 9 Entered By: ALCIDES CRAWFORD Comment: removed age 39 [facility] 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, 2021 Entered By: ROSELYN PEREZ Comment: nephrectomy, right, approx 2019 [facility] 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, 2021 Entered By: ROSELYN PEREZ Comment: radiation tx, approx 2019 [facility] Episodic paroxysmal anxiety disorder Active Condition [place] [facility] Erectile dysfunction Active Condition [facility] Erectile Dysfunction (SCT [id number]) Active Condition [facility] Exposure to potentially hazardous substance ([facility] [id number]) Active Condition May 23 4 Entered By: TOI TODD Comment: Entered automatically through [facility]AN Problem List documentation program [facility] KAIA - Generalised anxiety disorder Active Condition [place] HTN - Hypertension (SCT 98111110) Active Condition [facility] Hyperlipidemia (SCT 06445635) Active Condition [facility] Multiple nodules of lung Active Condition [facility] Nocturia Active Condition [facility] Pain in left knee Active Condition [facility] Polyp Colon (SCT 54545363) Active Condition Jan 29, 2019 Entered By: ALCIDES CRAWFORD Comment: c-scope 10/26/11 f/u in 10yrs (2021) [facility] Polyp Colon (SCT [id number]) Active Condition [facility] Prostate Cancer ([facility] [id number]) Active Condition [facility] Renal cell carcinoma Active Condition June 14, 2021 Entered By: ALCIDES CRAWFORD Comment: right nephrectomy May [address] 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 Active Diagnosis [facility] Diagnosis: ICD-10-CM M19.012 Primary osteoarthritis, left shoulder Active Diagnosis [facility] Diagnosis: ICD-10-CM M25.512 Pain in left shoulder Active Diagnosis [facility] Diagnosis: ICD-10-CM Z46.0 Encounter for fit/adjst of spectacles and contact lenses Active Diagnosis [facility] Diagnosis: ICD-10-CM Z23 Encounter for immunization Active Diagnosis [facility] Diagnosis: ICD-10-CM Z13.6 Encounter for screening for cardiovascular disorders Active Diagnosis [facility] Diagnosis: ICD-10-CM I10 Essential (primary) hypertension Active Diagnosis [facility] Diagnosis: ICD-10-CM F41.1 Generalized anxiety disorder Active Diagnosis [facility] Medications Combined list of outpatient medications from 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Medications provided include 1) outpatient medications from the last 15 months, and 2) patient-reported medications. Medication Details Route Status Patient Instructions Prescription Expires Prescription Number Last Dispense Date Ordering Provider Order Date Order Qty Source AMLODIPINE BESYLATE 10MG TAB TAKE ONE TABLET BY MOUTH ONCE DAILY FOR BLOOD PRESSURE /HEART, DO NOT TAKE WITH GRAPEFRU IT JUICE ORAL ACTIVE 01/22/2025 [id number] DONNA ASENCIO 2023 90 [facility] AMLODIPINE BESYLATE 10MG TAB TAKE ONE TABLET BY MOUTH ONCE DAILY FOR BLOOD PRESSURE /HEART, DO NOT TAKE WITH GRAPEFRU IT JUICE ORAL DISCONT INUED 12/21/2023 [id number] DONNA ASENCIO 2022 90 [facility] ARIPIPRAZOL E 10MG TAB TAKE ONE TABLET BY MOUTH ONCE DAILY ORAL DISCONT INUED (EDIT) 10/29/2023 [id number] JAKUB MESA MD 2022 30 [facility] ARIPIPRAZOL E 20MG TAB TAKE ONE-HALF TABLET BY MOUTH ONCE DAILY MOOD ORAL ACTIVE 11/09/2024 [id number] JAKUB MESA MD 2023 15 [facility] ARIPIPRAZOL E 20MG TAB TAKE ONE-HALF TABLET BY MOUTH ONCE DAILY MOOD ORAL DISCONT INUED (EDIT) 07/26/2024 [id number] JAKUB MESA MD 2023 15 [facility] ARIPIPRAZOL E 20MG TAB TAKE ONE-HALF TABLET BY MOUTH ONCE DAILY MOOD ORAL DISCONT INUED (EDIT) 04/28/2024 [id number] 4 JAKUB MESA MD 2023 15 [facility] ARIPIPRAZOL E 20MG TAB TAKE ONE-HALF TABLET BY MOUTH ONCE DAILY MOOD ORAL DISCONT INUED (EDIT) 01/28/2024 [id number] JAKUB MESA MD 2022 15 [facility] ATORVASTATI N CA 80MG TAB TAKE ONE-HALF TABLET BY MOUTH AT BEDTIME ORAL ACTIVE 01/10/2025 [id number] DONNA ASENCIO 2023 45 [facility] ATORVASTATI N CA 80MG TAB TAKE ONE-HALF TABLET BY MOUTH AT BEDTIME ORAL DISCONT INUED 12/21/2023 [id number] DONNA ASENCIO D 2022 45 [facility] CARVEDILOL 6.25MG TAB TAKE ONE TABLET BY MOUTH TWICE DAILY WITH FOOD ORAL ACTIVE 12/20/2024 [id number] DONAL GUADALUPE 2023 60 [facility] DICLOFENAC NA 1% GEL,TOP APPLY 2 GRAMS TOPICALL Y THREE TIMES DAILY NEEDED DIRECTED FOR LEFT SHOULDER PAIN - USE DOSING CARD PROVIDED IN BOX TOPICA L ACTIVE 03/21/2024 [id number] DONNA ASENCIO 2023 100 [facility] [place]AN 25MG TAB TAKE ONE TABLET BY MOUTH ONCE DAILY FOR BLOOD PRESSURE /HEART ORAL 12/21/2023 [id number] 4 DONNA ASENCIO CHARLES D 2022 90 [facility] MULTIVITAMI NS CAP/TAB TAKE ONE TABLET BY MOUTH ONCE DAILY ORAL ACTIVE ALCIDES CRAWFORD 2018 [facility] OTHER CAP/TAB TAKE AREDS EYE VITAMINS BY MOUTH ONCE DAILY ORAL ACTIVE ALCIDES CRAWFORD 2018 [facility] VENLAFAXINE HCL 75MG 24HR CAP,SA TAKE ONE CAPSULE BY MOUTH ONCE DAILY DEPRESSI ON/ ANXIETY ORAL ACTIVE 11/09/2024 [id number] JAKUB MESA MD 2023 30 [facility] VENLAFAXINE HCL 75MG 24HR CAP,SA TAKE ONE CAPSULE BY MOUTH ONCE DAILY DEPRESSI ON/ ANXIETY ORAL DISCONT INUED (EDIT) 07/26/2024 [id number] 4 JAKUB MESA MD 2023 30 [facility] VENLAFAXINE HCL 75MG 24HR CAP,SA TAKE ONE CAPSULE BY MOUTH ONCE DAILY DEPRESSI ON/ ANXIETY ORAL DISCONT INUED (EDIT) 04/28/2024 [id number] JAKUB MESA MD 2023 30 [facility] VENLAFAXINE HCL 75MG 24HR CAP,SA TAKE ONE CAPSULE BY MOUTH ONCE DAILY ORAL DISCONT INUED (EDIT) 01/28/2024 [id number] JAKUB MESA MD 2022 30 [facility] VENLAFAXINE HCL 75MG 24HR CAP,SA TAKE ONE CAPSULE BY MOUTH ONCE DAILY ORAL DISCONT INUED (EDIT) 10/29/2023 [id number] JAKUB MESA MD 2022 30 [facility] Allergies, Adverse Reactions, Alerts Combined list of allergies from 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 It does not include entries that were removed or entered in error. Substance Category Reaction Severity Reaction type Status Date Reported Comments Source LISINOPRIL Propensity to adverse reactions to drug (finding) Cough active 9 [facility] METOPROLOL Propensity to adverse reactions to drug (finding) Dizziness active 9 [facility] PERCOCET Propensity to adverse reactions to drug (finding) Urticaria active 9 [facility] Immunizations Combined list of available immunizations from the 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 Immunization Series Date Given Administered By Site Reaction Lot Number CVX Code Drug Manager Communication Status Comments Source COVID-19 (MODERNA), MRNA, LNP-S, PF, 50 MCG/0.5 ML (AGES 12+ YEARS) 6 2023 ZHEN RAMOS RIGHT DELTO ID [id number] 312 complet ed [facility] INFLUENZA, HIGH-DOSE, TRIVALENT, PF 2023 ZHEN RAMOS RIGHT [place] ID [id number] 135 complet ed [facility] COVID-19 (MODERNA), MRNA, LNP-S, PF, 50 MCG/0.5 ML (AGES 12+ YEARS) 5 2023 ZHEN RAMOS RIGHT DELTO ID [id number] 312 complet ed [facility] INFLUENZA, HIGH-DOSE, QUADRIVALENT 2022 VIVIANE FARIAS LEFT [place] ID [id number] 197 complet ed [facility] TDAP 2022 VIVIANE FARIAS RIGHT [place] ID [id number] 115 complet ed [facility] COVID-19 (MODERNA), MRNA, LNP-S, PF, 50 MCG/0.5 ML (AGES 12+ YEARS) 2022 CLEO,JENNIF ER M LEFT DELTO ID [id number] 312 complet ed [facility] PNEUMOCOCCAL CONJUGATE PCV20, POLYSACCHARID E [id number] CONJUGATE, ADJUVANT, PF 2022 ALISSON GALLO ER M LEFT DELTO ID [id number] 216 complet ed [facility] RSV, BIVALENT, PROTEIN SUBUNIT RSVPREF, DILUENT RECONSTITUTED , 0.5 ML, PF 2022 ALISSON GALLO ER M RIGHT DEL[place] ID [id number] 305 complet ed [id number] [facility] INFLUENZA VACCINE, QUADRIVALENT, ADJUVANTED 2021 205 complet ed [facility] INFLUENZA, UNSPECIFIED FORMULATION 2021 88 complet ed JLV/DG [facility] COVID-19 (MODERNA), MRNA, LNP-S, PF, 100 MCG OR 50 MCG DOSE 3 2020 207 complet ed [facility] COVID-19 (MODERNA), MRNA, LNP-S, PF, 100 MCG/0.5 ML DOSE 2 2020 207 complet ed [facility] COVID-19 (MODERNA), MRNA, LNP-S, PF, 100 MCG/0.5 ML DOSE 1 2020 207 complet ed [facility] INFLUENZA, UNSPECIFIED FORMULATION 2019 88 complet ed [facility] PNEUMOCOCCAL POLYSACCHARID E [id number] 2019 33 complet ed [facility] ZOSTER RECOMBINANT 2 2019 187 complet ed [facility] ZOSTER RECOMBINANT 1 2018 187 complet ed [facility] INFLUENZA, SEASONAL, INJECTABLE 2018 141 complet ed [facility] Influenza, seasonal, injectable, preservative free 17 2013 Unknown, Provider [id number] [employer] (CSL) complet ed Influenza , seasonal, injectabl e, preservat tracie free [facility] Influenza, seasonal, injectable 16 2013 Unknown, Provider [id number] 1A 141 [facility] [employer] ([facility]) complet ed Influenza , seasonal, injectabl e DoD hepatitis B vaccine, adult dosage 3 2011 Unknown, Provider [id number] 43 [facility] ([place]) complet ed hepatitis B vaccine, adult dosage DoD Influenza, seasonal, injectable 15 2011 Unknown, Provider [id number] 141 [facility] [employer] ([facility]) complet ed Influenza , seasonal, injectabl e DoD hepatitis B vaccine, adult dosage 2 2011 Unknown, Provider [id number] 43 [facility] ([facility]) complet ed hepatitis B vaccine, adult dosage DoD tetanus toxoid, reduced diphtheria toxoid, and acellular pertu is vaccine, adsorbed 1 2011 Unknown, Provider [id number] 115 Sanofi Pasteur ([facility]) complet ed tetanus toxoid, reduced diphtheri a toxoid, and acellular pertussis vaccine, adsorbed DoD TDAP 2011 115 complet ed [facility] [employer] [facility] anthrax vaccine 5 2011 Unknown, Provider [id number] [employer] [place] ([facility]) complet ed anthrax vaccine DoD tetanus toxoid, adsorbed 1 2011 Unknown, Provider [id number] 35 Sanofi Pasteur ([facility]) complet ed tetanus toxoid, adsorbed DoD hepatitis B vaccine, adult dosage 1 2011 Unknown, Provider [id number] 43 [facility] ([facility]) complet ed hepatitis B vaccine, adult dosage DoD typhoid Vi capsular polysaccharid e vaccine 4 2011 Unknown, Provider [id number] 101 Sanofi Pasteur ([facility]) complet ed typhoid Vi capsular polysacch aride vaccine DoD TD (ADULT) 2011 RIGHT DELTO ID 138 complet ed tetanus toxoid, adsorbed- JLV/[facility] Lot#: [id number] Mfr: SANOFI PASTEUR [facility] [employer] [facility] CybEyeU [facility] TYPHOID, VICPS 2011 RIGHT DELTO ID 101 complet ed typhoid Vi capsular polysacch aride vaccine-J LV/DOD Lot#: [id number] Mfr: SANOFI PASTEUR [facility] [employer] [facility] CybEyeCHU [facility] HEP B, ADULT 1 2011 LEFT ARM 43 complet ed hepatitis B vaccine, adult dosage-[facility] Lot#: [id number] B [place] [facility] Influenza, seasonal, injectable 1 2010 Unknown, Provider [id number] 141 Sanofi Pasteur ([facility]) complet ed Influenza , seasonal, injectabl e [facility] influenza virus vaccine, split virus (incl. purified surface antigen)-reti red CODE 1 2010 Unknown, Provider [id number] 15 Sanofi Pasteur ([facility]) complet ed influenza virus vaccine, split virus (incl. purified surface antigen)- retired CODE [facility] Novel influenza-H1N 1-09, injectable 1 2009 Unknown, Provider [id number] 127 [employer]. (NOV) complet ed Novel influenza -V5P1-28, injectabl e [facility] influenza virus vaccine, split virus (incl. purified surface antigen)-reti red CODE 1 2008 Unknown, Provider [id number] 15 clickTRUE, St[employer]. ([facility]) complet ed influenza virus vaccine, split virus (incl. purified surface antigen)- retired CODE [facility] influenza virus vaccine, split virus (incl. purified surface antigen)-reti red CODE 1 2007 Unknown, Provider [id number] 15 Sanofi Pasteur ([facility]) complet ed influenza virus vaccine, split virus (incl. purified surface antigen)- retired CODE [facility] influenza virus vaccine, split virus (incl. purified surface antigen)-reti red CODE 1 2006 Unknown, Provider [id number] 15 Sanofi Pasteur ([facility]) complet ed influenza virus vaccine, split virus (incl. purified surface antigen)- retired CODE [facility] influenza virus vaccine, split virus (incl. purified surface antigen)-reti red CODE 1 2005 Unknown, Provider [id number] 15 Sanofi Pasteur ([facility]) complet ed influenza virus vaccine, split virus (incl. purified surface antigen)- retired CODE [facility] tetanus and diphtheria toxoids, adsorbed, preservative free, for adult use (2 Lf of tetanus toxoid and 2 Lf of diphtheria toxoid) 1 2005 Unknown, Provider [id number] 09 Sanofi Pasteur ([facility]) complet ed tetanus and diphtheri a toxoids, adsorbed, preservat tracie free, for adult use (2 Lf of tetanus toxoid and 2 Lf of diphtheri a toxoid) DoD TD (ADULT), 2 LF TETANUS TOXOID, PRESERVATIVE FREE, ADSORBED 2005 09 complet ed tetanus and diphtheri a toxoids, adsorbed, preservat tracie free, for adult use (2 Lf of tetanus toxoid and 2 Lf of diphtheri a toxoid) Lot#: [id number] Mfr: SANOFI PASTEUR [facility] influenza virus vaccine, split virus (incl. purified surface antigen)-reti red CODE 1 2004 Unknown, Provider [id number] 15 Sanofi Pasteur ([facility]) complet ed influenza virus vaccine, split virus (incl. purified surface antigen)- retired CODE DoD anthrax vaccine 5 2003 Unknown, Provider [id number] [employer] [place] ([facility]) complet ed anthrax vaccine DoD ANTHRAX 5 2003 24 complet ed JLV/DOD Lot#: [id number] [facility] measles, mumps and rubella virus vaccine 1 2002 Unknown, Provider [id number] Merck (MSD) complet ed measles, mumps and rubella virus vaccine DoD influenza virus vaccine, whole virus 1 2002 Unknown, Provider [id number] Vikki (FRANCISCO) complet ed influenza virus vaccine, whole virus DoD MMR 2 2002 LEFT ARM 03 complet ed JLV/DOD Lot#: [id number] Mfr: [employer] [facility] anthrax vaccine 4 2002 Unknown, Provider [id number] [facility] [employer] [place] ([facility]) complet ed anthrax vaccine DoD ANTHRAX 4 2002 LEFT ARM 24 complet ed JLV/DOD Lot#: [id number] [facility] typhoid Vi capsular polysaccharid e vaccine 1 2002 Unknown, Provider [id number] Sanofi Pasteur ([facility]) complet ed typhoid Vi capsular polysacch aride vaccine DoD anthrax vaccine 3 2002 Unknown, Provider [id number] [employer] [place] ([facility]) complet ed anthrax vaccine DoD ANTHRAX 3 2002 24 complet ed JLV/DOD Lot#: [id number] [facility] vaccinia (smallpox) vaccine 2 2002 Unknown, Provider [id number] 75 Vikki CHARLES) complet ed vaccinia (smallpox ) vaccine DoD VACCINIA (SMALLPOX) 2 2002 LEFT ARM 75 complet ed JLV/DOD Lot#: [id number] Mfr: VEDA RST [facility] anthrax vaccine 2 2002 Unknown, Provider [id number] [employer] [place] ([facility]) complet ed anthrax vaccine DoD ANTHRAX 2 2002 LEFT ARM 24 complet ed JLV/DOD Lot#: [id number] [facility] anthrax vaccine 1 2001 Unknown, Provider [id number] [employer] [place] ([facility]) complet ed anthrax vaccine DoD ANTHRAX 1 2001 RIGHT ARM 24 complet ed JLV/DOD Lot#: [id number] [facility] [place] [facility] influenza virus vaccine, whole virus 1 2001 Unknown, Provider [id number] Sanofi Pasteur ([facility]) complet ed influenza virus vaccine, whole virus DoD tuberculin skin test; purified protein derivative solution, intradermal 1 2001 Unknown, Provider [id number] Sanofi Pasteur ([facility]) complet ed tuberculi n skin test; purified protein derivativ e solution, intraderm al DoD influenza virus vaccine, whole virus 1 2000 Unknown, Provider [id number] 16 Sanofi Pasteur ([facility]) complet ed influenza virus vaccine, whole virus DoD tuberculin skin test; purified protein derivative solution, intradermal 1 2000 Unknown, Provider [id number] Sanofi Pasteur ([facility]) complet ed tuberculi n skin test; purified protein derivativ e solution, intraderm al DoD typhoid vaccine, parenteral, other than acetone-kille d, dried 1 2000 Unknown, Provider [id number] 41 Sanofi Pasteur ([facility]) complet ed typhoid vaccine, parentera l, other than acetone-k illed, dried DoD influenza virus vaccine, whole virus 1 2000 Unknown, Provider [id number] 16 Vikki ([place]IS[place]) complet ed influenza virus vaccine, whole virus DoD hepatitis A vaccine, adult dosage 2 1998 Unknown, Provider [id number] Merck (MSD) complet ed hepatitis A vaccine, adult dosage DoD HEP A, ADULT 2 1998 52 complet ed hepatitis A vaccine, adult dosage-JL V/DOD Lot#: [id number] Mfr: [employer] [facility] influenza virus vaccine, whole virus 1 1998 Unknown, Provider [id number] 16 Vikki (FRANCIS[place]) complet ed influenza virus vaccine, whole virus DoD measles, mumps and rubella virus vaccine 1 1998 Unknown, Provider [id number] 03 Clementina (CON) complet ed measles, mumps and rubella virus vaccine DoD meningococcal polysaccharid e vaccine (MPSV4) 1 1998 Unknown, Provider [id number] 32 Sanofi Pasteur ([facility]) complet ed meningoco ccal polysacch aride vaccine (MPSV4) DoD hepatitis A vaccine, adult dosage 1 1998 Unknown, Provider [id number] Merck (MSD) complet ed hepatitis A vaccine, adult dosage DoD HEP A, ADULT 1 1998 52 complet ed JLV/DOD Lot#: [id number] Mfr: [employer] [facility] MENINGOCOCCAL MPSV4 1 1998 32 complet ed meningoco ccal polysacch aride vaccine (MPSV4) [facility] MMR 1 1998 03 complet ed measles, mumps and rubella virus vaccine-J LV/DOD Lot#: [id number] Mfr: MADELYNSiomara [facility] influenza virus vaccine, whole virus 1 1997 Unknown, Provider [id number] 16 Sanofi Pasteur ([facility]) complet ed influenza virus vaccine, whole virus [facility] typhoid vaccine, parenteral, acetone-kille d, dried ([place].S. ) 2 1997 Unknown, Provider 53 () complet ed typhoid vaccine, parentera l, acetone-k illed, dried ([place]. ) [facility] influenza virus vaccine, whole virus 1 1996 Unknown, Provider 16 () complet ed influenza virus vaccine, whole virus DoD yellow fever vaccine 1 1995 Unknown, Provider 37 () complet ed yellow fever vaccine DoD YELLOW FEVER 1995 37 complet ed [facility] tetanus and diphtheria toxoids, adsorbed, preservative free, for adult use (2 Lf of tetanus toxoid and 2 Lf of diphtheria toxoid) 1 1995 Unknown, Provider 09 () complet ed tetanus and diphtheri a toxoids, adsorbed, preservat tracie free, for adult use (2 Lf of tetanus toxoid and 2 Lf of diphtheri a toxoid) DoD cholera vaccine, unspecified formulation 1 1974 Unknown, Provider 26 () complet ed cholera vaccine, unspecifi ed formulati on DoD trivalent poliovirus vaccine, live, oral 1 1972 Unknown, Provider 02 () complet ed trivalent polioviru s vaccine, live, oral DoD Results Combined list of recent chemistry, hematology and other laboratory results from Department of Defense and Veterans Affairs, ranging from 15 months to all on record, depending upon the facility. Order Name Results Value Reference Range Date Interpretation Specimen Comments Source VITAMIN B-1 (THIAMINE )-(QU) THIAMINE [MOLES/VOLU ME] IN SERUM OR PLASMA 22 nmol/L 8 - 10/01 Specimen Type: PLASMA Comment: Vitamin supplementa tion within 24 hours prior to blood draw may affect the accuracy of the results. This test was developed and its analytical performance characteris tics have been determined by [facility] [place], [place]. It has not been cleared or approved by the U.S. Food and Drug Administrat ion. This assay has been validated pursuant to the CLIA regulations and is used for clinical purposes. Test Performed by [employer] [facility], [facility] [place], [address] [place] [address] Angus Mendez M.D., Ph.D., Director of Laboratorie s , CLIA [id number] TEST PERFORMED AT: , Ordering Provider: YARIEL ASENCIO Report Released Date/Time: Sep 16, 2023 06:52 PM Reporting Lab: [facility] [address] [address] Performing Lab: [facility] [place] [facility] [address] [address] [facility] [place] [facility] FOLATE (WROX) FOLATE [MASS/VOLUM E] IN SERUM OR PLASMA 9.92 ng/mL 5.2 10/01 Specimen Type: SERUM No comment entered. Ordering Provider: YARIEL ASENCIO Report Released Date/Time: Sep 16, 2023 06:52 PM Reporting Lab: [facility] [place] [facility] [address] [facility] [address] Performing Lab: [facility] [address] [facility] [address] [facility] LIPID PANEL FASTING CHOLESTEROL [MASS/VOLUM E] IN SERUM OR PLASMA 185 mg/dL 10/01 Specimen Type: SERUM No comment entered. Ordering Provider: YARIEL ASENCIO Report Released Date/Time: Sep 16, 2023 06:52 PM Reporting Lab: [facility] [place] [facility] [address] [facility] [address] Performing Lab: [facility] [address] [facility] [address] [facility] LIPID PANEL FASTING TRIGLYCERID E [MASS/VOLUM E] IN SERUM OR PLASMA 272 mg/dL 0 - 150 10/01 H Specimen Type: SERUM No comment entered. Ordering Provider: YARIEL ASENCIO Report Released Date/Time: Sep 16, 2023 06:52 PM Reporting Lab: [facility] [place] [facility] [address] [facility] [address] Performing Lab: [facility] [address] [facility] [address] [facility] LIPID PANEL FASTING CHOLESTEROL IN LDL [MASS/VOLUM E] IN SERUM OR PLASMA BY CALCULATION 96 mg/dL 0 - 129 10/01 Specimen Type: SERUM No comment entered. Ordering Provider: YARIEL ASENCIO Report Released Date/Time: Sep 16, 2023 06:52 PM Reporting Lab: [facility] [place] [facility] [address] [facility] [address] Performing Lab: [place] [facility] [facility] [place] [facility] [address] [facility] [address] [facility] [place] [facility] LIPID PANEL FASTING CHOLESTEROL .TOTAL/CHOL ESTEROL IN HDL [MASS RATIO] IN SERUM OR PLASMA 5.3 10/01 Specimen Type: SERUM No comment entered. Ordering Provider: YARIEL ASENCIO Report Released Date/Time: Sep 16, 2023 06:52 PM Reporting Lab: [facility] [place] [facility] [address] [facility] [address] Performing Lab: [facility] [place] [facility] [address] [facility] [address] [facility] [place] [facility] LIPID PANEL FASTING CHOLESTEROL IN HDL [MASS/VOLUM E] IN SERUM OR PLASMA 35 mg/dL 40 - 60 10/01 L Specimen Type: SERUM No comment entered. Ordering Provider: YARIEL ASENCIO Report Released Date/Time: Sep 16, 2023 06:52 PM Reporting Lab: [facility] [place] [facility] [address] [facility] [address] Performing Lab: [facility] [place] [facility] [address] [facility] [address] [facility] [place] [facility] LIVER FUNCTION PROTEIN [MASS/VOLUM E] IN SERUM OR PLASMA 6.9 g/dL 6.0 - 8.3 10/01 Specimen Type: SERUM No comment entered. Ordering Provider: YARIEL ASENCIO Report Released Date/Time: Sep 16, 2023 06:52 PM Reporting Lab: [place] [facility] [facility] [address] [facility] [address] Performing Lab: [place] [facility] [facility] [address] [facility] [address] [facility] [place] [facility] LIVER FUNCTION ALBUMIN [MASS/VOLUM E] IN SERUM OR PLASMA 4.0 g/dL 3.5 - 5.0 10/01 Specimen Type: SERUM No comment entered. Ordering Provider: YARIEL ASENCIO Report Released Date/Time: Sep 16, 2023 06:52 PM Reporting Lab: [facility] [place] [facility] [address] [facility] [address] Performing Lab: [facility] [place] [facility] [address] [facility] [address] [facility] [place] [facility] LIVER FUNCTION ALKALINE PHOSPHATASE [ENZYMATIC ACTIVITY/VO LUME] IN SERUM OR PLASMA 86 U/L 40 - 150 10/01 Specimen Type: SERUM No comment entered. Ordering Provider: YARIEL ASENCIO Report Released Date/Time: Sep 16, 2023 06:52 PM Reporting Lab: [facility] [place] [facility] [address] [facility] [address] Performing Lab: [place] [facility] [facility] [address] [facility] [address] [place] [facility] [facility] [facility] LIVER FUNCTION ASPARTATE AMINOTRANSF ERASE [ENZYMATIC ACTIVITY/VO LUME] IN SERUM OR PLASMA 13 U/L 5 - 34 10/01 Specimen Type: SERUM No comment entered. Ordering Provider: YARIEL ASENCIO Report Released Date/Time: Sep 16, 2023 06:52 PM Reporting Lab: [facility] [place] [facility] [address] [facility] [address] Performing Lab: [facility] [place] [facility] [address] [facility] [address] [place] [facility] [facility] LIVER FUNCTION ALANINE AMINOTRANSF ERASE [ENZYMATIC ACTIVITY/VO LUME] IN SERUM OR PLASMA 21 U/L 10/01 Specimen Type: SERUM No comment entered. Ordering Provider: YARIEL ASENCIO Report Released Date/Time: Sep 16, 2023 06:52 PM Reporting Lab: [facility] [place] [facility] [address] [facility] [address] Performing Lab: [facility] [place] [facility] [address] [facility] [address] [place] [facility] [facility] [facility] LIVER FUNCTION BILIRUBIN.T OTAL [MASS/VOLUM E] IN SERUM OR PLASMA 0.8 mg/dL 0.2 - 1.2 10/01 Specimen Type: SERUM No comment entered. Ordering Provider: YARIEL ASENCIO Report Released Date/Time: Sep 16, 2023 06:52 PM Reporting Lab: [facility] [place] [facility] [address] [facility] [address] Performing Lab: [facility] [place] [facility] [address] [facility] [address] [facility] [place] [facility] TSH THYROTROPIN [UNITS/VOLU ME] IN SERUM OR PLASMA 0.78 u[IU]/ mL 0.35 - 5.00 10/01 Specimen Type: SERUM No comment entered. Ordering Provider: YARIEL ASENCIO Report Released Date/Time: Sep 16, 2023 06:52 PM Reporting Lab: [facility] [place] [facility] [address] [facility] [address] Performing Lab: [place] [facility] [address] [address] [place] [facility] [facility] [facility] BASIC METABOLIC PANEL (fasting) UREA NITROGEN [MASS/VOLUM E] IN SERUM OR PLASMA 24 mg/dL 7 - 25 10/01 Specimen Type: SERUM No comment entered. Ordering Provider: YARIEL ASENCIO Report Released Date/Time: Sep 16, 2023 06:52 PM Reporting Lab: [facility] [place] [facility] [address] [facility] [address] Performing Lab: [facility] [place] [address] [address] [place] [facility] [facility] [facility] BASIC METABOLIC PANEL (fasting) GLUCOSE [MASS/VOLUM E] IN SERUM OR PLASMA 99 mg/dL 65 - 100 10/01 Specimen Type: SERUM No comment entered. Ordering Provider: YARIEL ASENCIO Report Released Date/Time: Sep 16, 2023 06:52 PM Reporting Lab: [facility] [place] [facility] [address] [facility] [address] Performing Lab: [facility] [place] [address] [address] [place] [facility] [facility] [facility] BASIC METABOLIC PANEL (fasting) SODIUM [MOLES/VOLU ME] IN SERUM OR PLASMA 137 mmol/L 135 - 145 10/01 Specimen Type: SERUM No comment entered. Ordering Provider: YARIEL ASENCIO Report Released Date/Time: Sep 16, 2023 06:52 PM Reporting Lab: [facility] [place] [facility] [address] [facility] [address] Performing Lab: [place] [facility] [place] [facility] [address] [facility] [address] [place] [facility] [facility] [facility] BASIC METABOLIC PANEL (fasting) POTASSIUM [MOLES/VOLU ME] IN SERUM OR PLASMA 4.4 mmol/L 3.5 - 5.0 10/01 Specimen Type: SERUM No comment entered. Ordering Provider: YARIEL ASENCIO Report Released Date/Time: Sep 16, 2023 06:52 PM Reporting Lab: [place] [facility] [address] [address] Performing Lab: [place] [facility] [address] [address] [facility] BASIC METABOLIC PANEL (fasting) CHLORIDE [MOLES/VOLU ME] IN SERUM OR PLASMA 104 mmol/L 100 - 110 10/01 Specimen Type: SERUM No comment entered. Ordering Provider: YARIEL ASENCIO Report Released Date/Time: Sep 16, 2023 06:52 PM Reporting Lab: [place] [facility] [address] [address] Performing Lab: [facility] [place] [address] [address] [place] [facility] [facility] [facility] BASIC METABOLIC PANEL (fasting) CARBON DIOXIDE, TOTAL [MOLES/VOLU ME] IN SERUM OR PLASMA 22 meq/L 20 - 30 10/01 Specimen Type: SERUM No comment entered. Ordering Provider: YARIEL ASENCIO Report Released Date/Time: Sep 16, 2023 06:52 PM Reporting Lab: [place] [facility] [place] [facility] [address] [facility] [address] Performing Lab: [place] [facility] [place] [address] [address] [facility] BASIC METABOLIC PANEL (fasting) CREATININE [MASS/VOLUM E] IN SERUM OR PLASMA 1.99 mg/dL 0.50 - 1.40 10/01 H Specimen Type: SERUM No comment entered. Ordering Provider: YARIEL ASENCIO Report Released Date/Time: Sep 16, 2023 06:52 PM Reporting Lab: [facility] [address] [facility] [address] Performing Lab: [facility] [address] [facility] [address] [facility] BASIC METABOLIC PANEL (fasting) GLOMERULAR FILTRATION RATE/1.73 SQ M.PREDICTED [VOLUME RATE/AREA] IN SERUM, PLASMA OR BLOOD BY CREATININE- BASED FORMULA (CKD-EPI 2020) 36 mL/min 60 10/01 L Specimen Type: SERUM No comment entered. Ordering Provider: YARIEL ASENCIO Report Released Date/Time: Sep 16, 2023 06:52 PM Reporting Lab: [facility] [address] [facility] [address] Performing Lab: [facility] [address] [facility] [address] [facility] PSA PROSTATE SPECIFIC AG [MASS/VOLUM E] IN SERUM OR PLASMA 0.53 ng/mL 0.00 - 4.00 10/01 Specimen Type: SERUM No comment entered. Ordering Provider: YARIEL ASENCIO Report Released Date/Time: Sep 16, 2023 06:52 PM Reporting Lab: [facility]N [facility] [address] [facility] [address] Performing Lab: [facility]ITALUSE[address] [address] [facility] VITAMIN B12 COBALAMIN (VITAMIN B12) [MASS/VOLUM E] IN SERUM OR PLASMA 1105 pg/mL 200 - 900 10/01 H Specimen Type: SERUM No comment entered. Ordering Provider: YARIEL ASENCIO Report Released Date/Time: Sep 16, 2023 06:52 PM Reporting Lab: [facility] [place] [facility] [address] [facility] [address] Performing Lab: [place] [facility] [facility] [address] [facility] [address] [facility] [place] [facility] CALCIUM CALCIUM [MASS/VOLUM E] IN SERUM OR PLASMA 9.1 mg/dL 8.5 - 10.2 10/01 Specimen Type: SERUM No comment entered. Ordering Provider: YARIEL ASENCIO Report Released Date/Time: Sep 16, 2023 06:52 PM Reporting Lab: [place] [facility] [facility] [address] [facility] [address] Performing Lab: [place] [facility] [address] [facility] [address] [facility] [place] [facility] MICROSCOP IC AUTOMATED , URINE LEUKOCYTES [#/AREA] IN URINE SEDIMENT BY MICROSCOPY HIGH POWER FIELD 0-5/[H PF] 0 - 5 10/01 Specimen Type: URINE Comment: If Glucose = >500 and Ketones are positive, please alert the Physician. Ordering Provider: YARIEL ASENCIO Report Released Date/Time: Sep 16, 2023 06:52 PM Reporting Lab: [facility] [place] [facility] [address] [facility] [address] Performing Lab: [facility] [place] [facility] [address] [facility] [address] [facility] MICROSCOP IC AUTOMATED , URINE MUCUS [#/AREA] IN URINE SEDIMENT BY MICROSCOPY LOW POWER FIELD FEW/[L PF] 10/01 Specimen Type: URINE Comment: If Glucose = >500 and Ketones are positive, please alert the Physician. Ordering Provider: YARIEL ASENCIO Report Released Date/Time: Sep 16, 2023 06:52 PM Reporting Lab: [facility] [place] [facility] [address] [facility] [address] Performing Lab: [place] [facility] [facility] [address] [facility] [address] [facility] [place] [facility] MICROSCOP IC AUTOMATED , URINE ERYTHROCYTE S [#/AREA] IN URINE SEDIMENT BY MICROSCOPY HIGH POWER FIELD 0-2/[H PF] 0 - 3 10/01 Specimen Type: URINE Comment: If Glucose = >500 and Ketones are positive, please alert the Physician. Ordering Provider: YARIEL ASENCIO Report Released Date/Time: Sep 16, 2023 06:52 PM Reporting Lab: [facility] [place] [facility] [address] [facility] [address] Performing Lab: [facility] [place] [facility] [address] [facility] [address] [facility] [place] [facility] Vital Signs Combined list of inpatient and outpatient Vital Signs from Department of Defense and Veterans Affairs, ranging from 12 months to all on record, depending upon the facility. Vital Sign Value Date Comments Source SYSTOLIC BLOOD PRESSURE 124 01/01/20 24 14:01:54 [facility] [place] [facility] DIASTOLIC BLOOD PRESSURE 83 024 14:01:54 [facility] [place] PULSE OXIMETRY 95 01/01/2024 14:01:54 [facility] WEIGHT 260.1 01/01/2024 14:01:54 [facility] BMI 37kg/m2 01/01/2024 14:01:54 [facility] PAIN 0 01/01/2024 14:01:54 [facility] HEIGHT 70 01/01/2024 14:01:54 [facility] TEMPERATURE 98 01/01/2024 14:01:54 [facility] PULSE 70 01/01/2024 14:01:54 [facility] [place] RESPIRATION 16 01/01/2024 14:01:54 [facility] [place] [facility] SYSTOLIC BLOOD PRESSURE 126 09/26/19 24 09:00:58 [facility] [place] [facility] DIASTOLIC BLOOD PRESSURE 82 024 09:00:58 [facility] [place] PULSE OXIMETRY 96 09/26/2023 09:00:58 [facility] WEIGHT 256.8 09/26/2023 09:00:58 [facility] BMI 37kg/m2 09/26/2023 09:00:58 [facility] PAIN 0 09/26/2023 09:00:58 [facility] HEIGHT 70 09/26/2023 09:00:58 [facility] TEMPERATURE 97.8 09/26/2023 09:00:58 [facility] PULSE 84 09/26/2023 09:00:58 [facility] RESPIRATION 16 09/26/2023 09:00:58 [facility] [place] SYSTOLIC BLOOD PRESSURE 142 06/20/19 24 09:03:15 [facility] [place] DIASTOLIC BLOOD PRESSURE 82 024 09:03:15 [facility] [place] [facility] PULSE OXIMETRY 93 06/20/2023 09:03:15 [facility] WEIGHT 257.3 06/20/2023 09:03:15 [facility] BMI 37kg/m2 06/20/2023 09:03:15 [facility] PAIN 0 06/20/2023 09:03:15 [facility] HEIGHT 70 06/20/2023 09:03:15 [facility] TEMPERATURE 98.6 06/20/2023 09:03:15 [facility] PULSE 77 06/20/2023 09:03:15 [facility] RESPIRATION 16 06/20/2023 09:03:15 [facility] [place] SYSTOLIC BLOOD PRESSURE 156 05/18/19 24 08:01:06 [facility] [place] DIASTOLIC BLOOD PRESSURE 90 024 08:01:06 [facility] [place] PULSE OXIMETRY 94 05/18/2023 08:01:06 [facility] WEIGHT 263 05/18/2023 08:01:06 [facility] BMI 38kg/m2 05/18/2023 08:01:06 [facility] [place] PAIN 0 05/18/2023 08:01:06 [facility] PULSE 80 05/18/2023 08:01:06 [facility] [place] RESPIRATION 20 05/18/2023 08:01:06 [facility] [place] [facility] SYSTOLIC BLOOD PRESSURE 160 03/21/19 24 11:39:15 [facility] [place] [facility] DIASTOLIC BLOOD PRESSURE 104 024 11:39:15 [facility] [place] [facility] PULSE OXIMETRY 95 03/21/2023 11:39:15 [facility] WEIGHT 259 03/21/2023 11:39:15 [facility] BMI 37kg/m2 03/21/2023 11:39:15 [facility] PAIN 9 03/21/2023 11:39:15 [facility] TEMPERATURE 98.8 03/21/2023 11:39:15 [facility] PULSE 88 03/21/2023 11[facility]39:15 [facility] RESPIRATION 18 03/21/2023 11:39:15 [facility] [place] Encounters Combined list of: 1) Encounters from Department of Veterans Affairs facilities going back up to thelast 18 months. 2) Encounters from the Department of Defense facilities going back up to 280 months. Location Location Details Encounter Type Encounter Number Reason For Visit Attending Provider ADM Date DC Date Status Disposition Source Theater Facility OUTPATIENT [id number] 08/19 Released w/o Limitations [facility] PT 30 MINUTES [id number] Diagnos is: ICD-10- CM F41.9 Anxiety disorde r, unspeci fied
CUFF,SAE A 08/29 [facility] OFFICE O/P EST LOW 20-29 MIN [id number] Diagnos is: ICD-10- CM F41.1 General ized anxiety disorde r
CHARLYJESSICA Vincent SAID 09/[address] [facility] Outpatient Encounter [id number] 09/15 [facility] [place] [facility] Encounter [id number] RICCO GRESHAM 09[facility]29 [facility] [place] [facility] OFF/OP EST MAY X REQ PHY/QHP [id number] Diagnos is: ICD-10- CM F41.9 Anxiety disorde r, unspeci fied
Avelina CRAWFORD ATRICIA A 09/29 [facility] [place] [facility] OFF[facility] O/P EST LOW 20-29 MIN [id number] Diagnos is: ICD-10- CM F41.9 Anxiety disorde r, unspeci fied
Sera MESA MD 09/30 [facility] [place] [facility] [facility] Outpatient Encounter [id number] 10/10 [facility] [place] [facility] Outpatient Encounter [id number] 10/16 [facility] Outpatient Encounter [id number] 10/16 [facility] [place] [facility] Out[facility] Encounter [id number] 10/18 [facility] [place] [facility] [place] Outpatient Encounter [id number] 10/18 [facility] [place] OFFICE O/P EST LOW 20-29 MIN [id number] Diagnos is: ICD-10- CM F41.9 Anxiety disorde r, unspeci fied
Sera MESA MD 10/28 [place] [facility] [place] [facility] Outpatient Encounter [id number] 12/06 [facility] [place] [facility] Outpatient Encounter [id number] 12/07 [facility] [place] [facility] Outpatient Encounter [id number] 12/13 [place] [facility] [place] [facility] Outpatient Encounter [id number] 12/20 [facility] Outpatient Encounter [id number] Angi IRVIN 12/20 [facility] [place] [facility] OFFICE O/P EST LOW 20-29 MIN [id number] Diagnos is: ICD-10- CM I10 Essenti al (primar y) hyperte nsion<b r/> KIRSTEN ASENCIO RD 12/20 [facility] [place] [facility] ELECTROCAR DIOGRAM REPORT [id number] Diagnos is: ICD-10- CM Z13.6 Encount er for screeni ng for cardiov ascular disorde rs
Fany REID 12/20 [facility] En[facility] [id number] 12/22 [facility] [place] [facility] Outpatient Encounter [id number] 12/26 [facility] Outpatient Encounter [id number] Angi IRVIN 12/26 [facility] OFF/OP EST MAY X REQ PHY/QHP [id number] Diagnos is: ICD-10- CM Z23 Encount er for immuniz ation<b r/> VIVIANE FARIAS 12/26 [facility] FIT SPECTACLES MULTIFOCAL [id number] Diagnos is: ICD-10- CM Z46.0 Encount er for fit/adj st of spectac les and contact lenses< br/> INEZ GOODRICH 12/26 [facility] Outpatient Encounter [id number] 12/27 [facility] OFFICE O/P EST LOW 20-29 MIN [id number] Diagnos is: ICD-10- CM F41.9 Anxiety disorde r, unspeci fied
Sera MESA MD 01/27 [facility] En[facility] [id number] 03/07 [facility] [id number] 03/16 [facility] Encounter [id number] 03/18 [facility]counter [id number] 03/18 [facility] Encounter [id number] JOSE FRANCISCO BOO 03/20 [facility] OFF[facility] O/P EST LOW 20 MIN [id number] Diagnos is: ICD-10- CM M25.512 Pain in left shoulde r
KIRSTEN ASENCIO RD 03/21 [facility] En[facility] [id number] 03/23 [facility]counter [id number] 03/30 [facility]counter [id number] 04/04 [facility] Encounter [id number] 04/20 [facility] OFF[facility] O/P EST LOW 20 MIN [id number] Diagnos is: ICD-10- CM F41.9 Anxiety disorde r, unspeci fied
Sera MESA MD 04/27 [facility] [id number] 05/04 [facility] En[facility] [id number] 05/07 [facility] OFF[facility] O/P NEW MOD 45 MIN [id number] Diagnos is: ICD-10- CM M19.012 Primary osteoar thritis , left shoulde r
Rosy ROME 05/17 [facility] En[facility] [id number] 05/17 [facility]counter [id number] 05/18 [facility]counter [id number] 05/30 [facility] [place] Outpatient Encounter [id number] 06/19 [facility] Out[facility] Encounter [id number] 06/19 [facility] [place] [facility] Outpatient Encounter [id number] Angi IRVIN 06/19 [facility] OFF[facility] O/P EST LOW 20 MIN [id number] Diagnos is: ICD-10- CM 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 age<br/ > KIRSTEN ASENCIO RD 06/19 [facility] O/P EST SF 10 MIN [id number] Diagnos is: ICD-10- CM F41.9 Anxiety disorde r, unspeci fied
Sera MESA MD 07/25 [facility] Out[facility] Encounter [id number] 07/26 [facility] Encounter [id number] 07/29 [facility] PSYCH DIAGNOSTIC EVALUATION [id number] Diagnos is: ICD-10- CM R41.3 Other amnesia
[place] Zam[place] 08/07 [facility] Out[facility] Encounter [id number] [place] 08/07 [facility] PSYCL/NR[place] T[place] [id number] Diagnos is: ICD-10- CM R41.3 Other amnesia
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
KIRSTEN ASENCIO RD 09/25 [facility] Encounter [id number] 10/09 [facility] Encounter [id number] 1.10/09 [facility] Out[facility] Encounter [id number] 10/12 [facility] Encounter [id number] 1.10/20 [facility] Encounter [id number] [facility] Encounter [id number] 1.10/25 [facility] Encounter [id number] [facility] Encounter [id number] 10/30 [facility] Encounter [id number] [facility] OFF[facility] O/P EST SF 10 MIN [id number] Diagnos is: ICD-10- CM F41.9 Anxiety disorde r, unspeci fied
Sera MESA MD 11/08 [facility] Out[facility] Encounter [id number] 11/11 [facility] Encounter [id number] 1.11/15 [facility] Encounter [id number] 1.12/03 [facility] Encounter [id number] 12/04 [facility] Out[facility] Encounter [id number] 1.12/13 [facility] Encounter [id number] [facility] Out[facility] Encounter [id number] 12/19 [facility] Out[facility] Encounter [id number] 12/20 [facility] Out[facility] Encounter [id number] 12/27 [facility] Out[facility] Encounter [id number] 12/27 [facility] Out[facility] Encounter [id number] 12/27 [facility] OFFICE O/P EST SF 10 MIN [id number] Diagnos is: ICD-10- CM R41.3 Other amnesia
KIRSTEN ASENCIO RD 12/31 [facility] Outpatient Encounter [id number] 01/09 [facility] Outpatient Encounter [id number] 1.01/09 [facility] Outpatient Encounter [id number] 01/21 [facility] Social History Combined list of available smoking, tobacco, and other social history from 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 Social History Type Response Date Comment Sour e Tobacco smoking status [facility] VA-TOBACCO QUIT 15 YRS OR MORE 09/26/2023 [facility] History of tobacco use VA-TOBACCO FORMER USER 09/26/2023 [facility] History of tobacco use VA-TOBACCO FORMER USER 10/18/2022 [facility] History of tobacco use VA-TOBACCO FORMER USER 12/29/2021 [facility] History of tobacco use VA-TOBACCO FORMER USER 11/12/2021 [facility] History of tobacco use VA-TOBACCO FORMER USER 10/01/2020 [facility] History of tobacco use VA-TOBACCO FORMER USER 10/25/2019 [facility] History of tobacco use VA-TOBACCO QUIT 5 TO < 15 YRS 09/07/2018 [place] [facility] History of tobacco use VA-TOBACCO USE DECLINED TO ANSWER 04/25/2018 [facility] This section is an empty social history section. DoD Plan of Care List of future care activities from Department of Veterans Affairs facilities. Additional future care activities may be listed in the Assessment and Plan section. Date/Time Care Activity Care Activity Detail Facili ty 03/19/2024 AMBULATORY - PSYCHIATRY [facility] 04/24/2024 AMBULATORY - NONE [facility] [place] [facility] 04/30/2024 AMBULATORY - MEDICINE AMBULATORY - MEDICI NE [facility] [facility]
--- OUTSIDE RECORDS SUMMARY | 2024-02-15 17:22 | XMS_ITS | Encounter Summary ---
Author Name [facility] Address [address] [place] [address] Care Team Providers Care Operations Support Coordinator Name Role Phone ROSELYN PEREZ Primary Care Provider ISABELA Ramirez Primary Care Provider Peyton salas Insurance Providers: All historical and current Section Date Range: From patient's date of to the date document was created. This section includes the names of all active insurance providers for the patient. Insurance Provider Type of Coverage Plan Name Start of Policy Coverage End of Policy Coverage Group Number Member ID Insurance Provider's Telephone Number Policy Carr's Name Patient's Relationship to Policy Carr [employer] [facility]NR [id number] NOEMI BREEN ERT PATIENT MEDICARE (WNR) MEDICARE (M) PART A Feb 13, 2019 PART A [id number] NOEMI BREEN ERT PATIENT MEDICARE (WNR) MEDICARE (M) PART B Feb 13, 2019 PART B [id number] NOEMI BREEN ERT PATIENT MEDICARE (WNR) MEDICARE (M) PART A Feb 13, 2019 PART A [id number] NOEMI BREEN ERT PATIENT MEDICARE (WNR) MEDICARE (M) PART B Feb 13, 2019 PART B [id number] [phone] NOEMI BREEN ERT PATIENT MEDICARE (WNR) MEDICARE (M) PART A Feb 13, 2019 PART A [id number] NOEMI BREEN ERT PATIENT MEDICARE (WNR) MEDICARE (M) PART B Feb 13, 2019 PART B [id number] NOEMI BREEN ERT PATIENT FOR LIFE TFL* Feb 13, 2019 [id number] NOEMI BREEN ERT PATIENT FOR LIFE SUPPLEMEN SHAI TFL Feb 13, 2019 [facility] [id number] NOEMI BREEN ERT PATIENT -FO R-LIFE DIREC T CARE Oct 05, 2022 [facility] [id number] NOEMI BREEN ERT PATIENT Selected Encounter This section includes the information on record at [place] for the Encounter. Date/Time Encounter Type Encounter Description Reason Pro vider Source Mar 07, 2023 12:00 AM Outpatient Encounter EVENT (HISTORICAL) IHE Encounter Template Text not used by [place] Plan of Treatment: Future Appointments (+ 6 months) and Future Tests (+/- 45 days) The Plan of Treatment section includes future care activities for the patient from all [place] treatmentfacilities. This section includes future appointments and future orders which are active, pending or scheduled. Future Appointments This section includes appointments that were scheduled to occur 6 months from the date of the Encounter, up to a maximum of 20 appointments. The data comes from all [place] treatment facilities. Appointment Date/Time Appointment Type Appointme nt Facility Name Mar 21, 2023 11:30 AM AMBULATORY - MEDICINE [facility] [place] [facility] Apr 28, 2023 10:30 AM AMBULATORY - PSYCHIATRY [facility] [place] [facility] May 05, 2023 02:45 PM AMBULATORY - MEDICINE [facility] [place] [facility] May 18, 2023 08:00 AM AMBULATORY - REHAB MEDICIN E [facility] [place] [facility] June 20, 2023 09:00 AM AMBULATORY - MEDICINE [facility] [place] [facility] Jul 26, 2023 10:30 AM AMBULATORY - NONE [place] [facility] [place] [facility] Jul 26, 2023 11:00 AM AMBULATORY - PSYCHIATRY [facility] Jul 26, 2023 11:30 AM AMBULATORY - NONE [facility] Aug 08, 2023 08:30 AM [facility] Aug 22, 2023 11:30 AM AMBULATORY - PSYCHIATRY [facility] Lab Results: +/- 30 days of the encounter This section includes the Chemistry and Hematology Lab Results on record with [place] for the patient. Radiology Reports and Pathology Reports are provided separately, in subsequent sections. Lab Results This section contains the Chemistry/Hematology Results that were resulted 30 days before or 30 daysafter the date of the Encounter. Date/Time Source Result Type Result - Unit Interpretation Reference Range Comment Mar 20, 2023 11:34 AM [facility] COVID-19 FLU/RSV DIAGNOSTIC PANEL Specimen Type: NASOPHARYNX Comment: This test is authorized for emergency use only. False negative results may occur if virus is present at levels below the analytical limit of detection.Neg ative results do not preclude SARS-CoV-2, influenza or RSV infection and should not be used as the sole basis for treatment or other patient management decisions.Cep heid FLUVID: HCPs: https://www. [place].gov/media/ 105694/downlo ad. Patients: https://www.RentShare [place].gov/media/ 546426/downlo ad Ordering Provider: ISABELA ASENCIO Report Released Date/Time: Mar 20, 2023 11:31 AM Reporting Lab: [address] [address] Performing Lab: [address] [address] COVID-19 PCR (FLUVID) NEGATIVE NEGATIVE FLU A PCR (FLUVID) NEGATIVE FLU B PCR (FLUVID) NEGATIVE RSV PCR (FLUVID) NEGATIVE Social History: Smoking Status (Most current) and Tobacco Use (All prior to encounter date) This section includes the most current, and the historical, smoking and tobacco- related health factors from the [place] facility where the Encounter took place. Current Smoking Status This section includes the most current smoking, or tobacco-related health factor, from the [place] facility where the Encounter took place. Date/Time Current Smoking Status Comment Randal itezio Oct 18, 2022 03:16 PM [facility] [place] [facility] Tobacco Use History This section includes a history of the smoking, or tobacco-related health factors, that were collected on or before the date of the Encounter. The data comes from the [place] facility where the Encounter took place. Date/Time Smoking Status/Tobacco Use Comment [facility] Oct 18, 2022 03:16 PM VA-TOBACCO QUIT 15 YRS OR MORE [place] [facility] [place] [facility] Nov 12, 2021 10:30 AM VA-TOBACCO FORMER USER [facility] [place] [facility] Nov 12, 2021 10:30 AM VA-TOBACCO QUIT 5 TO < 15 YRS [facility] [place] [facility] Oct 01, 2020 11:02 AM VA-TOBACCO FORMER USER [facility] [place] [facility] Oct 01, 2020 11:02 AM VA-TOBACCO QUIT 15 YRS OR MORE [facility] [place] [facility] Oct 25, 2019 11:30 AM VA-TOBACCO FORMER USER [facility] [place] [facility] Oct 25, 2019 11:30 AM VA-TOBACCO QUIT 5 TO < 15 YRS [facility] [place] [facility] Sep 07, 2018 09:43 AM VA-TOBACCO FORMER USER [facility] [place] [facility] Sep 07, 2018 09:43 AM VA-TOBACCO QUIT 5 TO < 15 YRS [facility] [place] [facility] Apr 25, 2018 02:08 PM VA-TOBACCO USE DEC LINED TO ANSWER [facility] [place] [facility] Encounter Notes: All associated encounter notes This section contains the clinical notes associated to the Encounter. Date/Time Encounter Note(s) Provider Source Mar 07, 2023 12:00 AM NONVA DIAGNOSTIC [facility] REPORT: LOCAL TITLE: NON-VA DIAGNOSTICS STANDARD TITLE: NONVA DIAGNOSTIC STUDY REPORT DATE OF NOTE: MAR 07, 2023 ENTRY DATE: MAR 17, 2023@10:11 AUTHOR: GENE PERRY COSIGNER: URGENCY: STATUS: COMPLETED VistA Imaging - Scanned Document SCANNED DOCUMENT SIGNATURE NOT REQUIRED Electronically Filed: 03/17/2023 by: GENE PERRY DISABILITY COUNSELOR GENE PERRY [facility]
--- OUTSIDE RECORDS SUMMARY | 2024-02-15 17:22 | XMS_ITS | Encounter Summary ---
Author Name [facility] [place] Organization [facility] ([place]) Address [address] [place] [address] Care Team Providers Care Coding Director Name Role Phone ROSELYN PEREZ Primary Care Provider NITISH Ramirez Primary Care Provider Peyton salas Insurance [...] Oct 05, 20[facility] [id number] NOEMI BREEN ERT PATIENT MEDICARE (WNR) MEDICARE (M) PART B Feb 13, 2019 PART B [id number] [phone] NOEMI BREEN ERT PATIENT MEDICARE (WNR) MEDICARE (M) PART A Feb 13, 2019 PART A [id number] NOEMI BREEN ERT PATIENT MEDICARE (WNR) MEDICARE (M) PART A Feb 13, 2019 PART A [id number] [phone] NOEMI BREEN ERT PATIENT MEDICARE (WNR) MEDICARE (M) PART B Feb 13, 2019 PART B [id number] [id number] [phone] NOEMI BREEN ERT PATIENT MEDICARE (WNR) MEDICARE (M) PART A Feb 13, 2019 PART A [id number] NOEMI BREEN ERT PATIENT MEDICARE (WNR) MEDICARE (M) PART B Feb 13, 2019 PART B [id number] NOEMI BREEN ERT PATIENT FOR LIFE TFL* Feb 13, 2019 [id number] [phone] NOEMI BREEN ERT PATIENT FOR LIFE SUPPLEMEN SHAI TFL Feb 13, 2019 [facility] [id number] NOEMI BREEN ERT PATIENT -FO R-LIFE DIREC T CARE Oct 05, 2022 [facility] [id number] NOEMI BREEN ERT PATIENT Selected Encounter This section includes the information on record at [place] for the Encounter. Date/Time Encounter Type Encounter Description Reason Pro vider Source Mar 16, 2023 11:33 AM Outpatient Encounter PRIMARY CARE/MEDICINE IHE Encounter Template Text not used by [place] Plan of Treatment: Future Appointments (+ 6 months) and Future Tests (+/- 45 days) The Plan of Treatment section includes future care activities for the patient from all [place] treatmentfacilities. This section includes future appointments and future orders which are active, pending or scheduled. Future Appointments This section includes appointments that were scheduled to occur 6 months from the date of the Encounter, up to a maximum of 20 appointments. The data comes from all [place] treatment facilities. Appointment Date/Time Appointment Type Appointme nt Facility Name Mar 21, 2023 11:30 AM AMBULATORY - [place]ICINE [place] [facility] [facility] Apr 28, 2023 10:30 AM AMBULATORY - PS[place]CHIATRY [facility] [place] [facility] May 05, 2023 02:45 PM AMBULATORY - MEDICINE [place] [facility] [facility] May 18, 2023 08:00 AM AMBULATORY - REHAB MEDICIN E [facility] [place] [facility] June 20, 2023 09:00 AM AMBULATORY - MEDICINE [place] [facility] [facility] Jul 26, 2023 10:30 AM AMBULATORY - NONE [facility] [place] [facility] Jul 26, 2023 11:00 AM AMBULATORY - PS[facility]CHIATRY [facility] Jul 26, 2023 11:30 AM AMBULATORY - NONE [facility] Aug 08, 2023 08:30 AM AMBULATORY - PS[facility]IATRY [facility] Aug 22, 2023 11:30 AM AMBULATORY - PSYCHIATRY [facility] Lab Results: +/- 30 days of the encounter This section includes the Chemistry and Hematology Lab Results on record with [place] for the patient. Radiology Reports and Pathology Reports are provided separately, in subsequent sections. Lab Results This section contains the Chemistry/Hematology Results that were resulted 30 days before or 30 daysafter the date of the Encounter. Date/Time Source Result Type Result - Unit Interpretation Reference Range Comment Mar 20, 2023 11:34 AM [facility] COVID-19 FLU/RSV DIAGNOSTIC PANEL Specimen Type: NASOPHARYNX [...] management decisions.Cep heid FLUVID: HCPs: https://www. [place].gov/media/ 376215/downlo ad. Patients: https://www. da.gov/media/ 484348/downlo ad Ordering Provider: NITISH ASENCIO Report Released Date/Time: Mar 20, 2023 11:31 AM Reporting Lab: [address] [address] Performing Lab: [address] [address] COVID-19 PCR (FLUVID) NEGATIVE NEGATIVE FLU A PCR (FLUVID) NEGATIVE FLU B PCR (FLUVID) NEGATIVE RSV PCR (FLUVID) NEGATIVE Social History: Smoking Status (Most current) and Tobacco Use (All prior to encounter date) This section includes the most current, and the historical, smoking and tobacco- related health factors from the [place] facility where the Encounter took place. Current Smoking Status This section includes the most current smoking, or tobacco-related health factor, from the [place] facility where the Encounter took place. Date/Time Current Smoking Status Comment Randal hyde Oct 18, 2022 03:16 PM VA-TOBACCO FORMER USER [place] [facility] [place] [facility] Tobacco Use History This section includes a history of the smoking, or tobacco-related health factors, that were collected on or before the date of the Encounter. The data comes from the [place] facility where the Encounter took place. Date/Time Smoking Status/Tobacco Use Comment Breezy allen Oct 18, 2022 03:16 PM VA-TOBACCO QUIT 15 YRS OR MORE [facility] [place] [facility] Nov 12, 2021 10:30 AM VA-TOBACCO FORMER USER [facility] [place] [facility] Nov 12, 2021 10:30 AM VA-TOBACCO QUIT 5 TO < 15 YRS [facility] [place] [facility] Oct 01, 2020 11:02 AM VA-TOBACCO FORMER USER [facility] [place] [facility] Oct 01, 2020 11:02 AM VA-TOBACCO QUIT 15 YRS OR MORE [facility] [place] [facility] Oct 25, 2019 11:30 AM VA-TOBACCO FORMER USER [facility] [place] [facility] Oct 25, 2019 11:30 AM VA-TOBACCO QUIT 5 TO < 15 YRS [facility] [place] [facility] Sep 07, 2018 09:43 AM VA-TOBACCO FORMER USER [facility] [place] [facility] Sep 07, 2018 09:43 AM VA-TOBACCO QUIT 5 TO < 15 YRS [facility] [place] [facility] Apr 25, 2018 02:08 PM VA-TOBACCO USE DEC LINED TO ANSWER [facility] [place] [facility] Encounter Notes: All associated encounter notes This section contains the clinical notes associated to the Encounter. Date/Time Encounter Note(s) Provider Source Mar 16, 2023 11:33 AM NONVA CONSULT: LOCAL TITLE: MD/OUTSIDE CONSULT REPORT SUMMARY STANDARD TITLE: NONVA CONSULT DATE OF NOTE: MAR 16, 2023@11:33 ENTRY DATE: MAR 16, 2023@11:33:51 AUTHOR: NITISH ASENCIO EXP COSIGNER: URGENCY: STATUS: COMPLETED 03-07-23 [facility] PSA 0.56 /es/ Nitish Asencio MD Staff Physician Signed: 03/16/2023 11:34 NITISH ASENCIO [facility]
--- OUTSIDE RECORDS SUMMARY | 2024-02-15 17:23 | XMS_ITS | Encounter Summary ---
Author Name [facility] [place] [facility] [place] Organization [facility] [place] Address [address] [place] [address] Care Team Providers Care Players Assistant Name Role Phone ROSELYN PEREZ Primary Care [...] TRICA RE [id number] NOEMI BREEN ERT PATIENT MEDICARE (WNR) MEDICARE (M) PART B Feb 13, 2019 PART B [id number] NOEMI BREEN ERT PATIENT MEDICARE (WNR) MEDICARE (M) PART A Feb 13, 2019 PART A [id number] NOEMI BREEN ERT PATIENT MEDICARE (WNR) MEDICARE (M) PART A Feb 13, 2019 PART A [id number] NOEMI BREEN ERT PATIENT MEDICARE (WNR) MEDICARE (M) PART B Feb 13, 2019 PART B [id number] NOEMI BREEN ERT PATIENT MEDICARE (WNR) MEDICARE (M) PART A Feb 13, 2019 PART A [id number] [phone] NOEMI BREEN ERT PATIENT MEDICARE (WNR) MEDICARE (M) PART B Feb 13, 2019 PART B [id number] NOEMI BREEN ERT PATIENT FOR LIFE TFL* Feb 13, 2019 [id number] NOEMI BREEN ERT PATIENT FOR LIFE SUPPLEMEN SHAI TFL Feb 13, 2019 [facility] [id number] NOEMI BREEN ERT PATIENT -FO R-LIFE DIREC T CARE Oct 05, 2022 [facility] [id number] NOEMI BREEN ERT PATIENT Selected Encounter This section includes the information on record at [place] for the Encounter. Date/Time Encounter Type Encounter Description Reason Provider Source Mar 20, 2023 08:34 AM Outpatient Encounter TELEPHONE TRIAGE JOSE FRANCISCO BOO Encounter Template Text not used by [place] Plan of Treatment: Future Appointments (+ 6 months) and Future Tests (+/- 45 days) The Plan of Treatment section includes future care activities for the patient from all [place] treatmentfacilities. This section includes future appointments and future orders which are active, pending or scheduled. Future Appointments This section includes appointments that were scheduled to occur 6 months from the date of the Encounter, up to a maximum of 20 appointments. The data comes from all [place] treatment facilities. Appointment Date/Time Appointment Type Appointme nt Facility Name Mar 21, 2023 11:30 AM AMBULATORY [place] MEDICINE [place] [facility] [place] [facility] Apr 28, 2023 10:30 AM AMBULATORY - PSYCHIATRY [place] [facility] [place] [facility] May 05, 2023 02:45 PM AMBULATORY - MEDICINE [place] [facility] [place] [facility] May 18, 2023 08:00 AM AMBULATORY [facility]IN [facility] [place] [facility] June 20, 2023 09:00 AM AMBULATORY - MEDICINE [place] [facility] [place] [facility] Jul 26, 2023 10:30 AM AMBULATORY - NONE [place] [facility] [place] [facility] Jul 26, 2023 11:00 AM [facility] Jul 26, 2023 11:30 AM AMBULATORY - NONE [facility] Aug 08, 2023 08:30 AM [facility] Aug 22, 2023 11:30 AM AMBULATORY - PSYCHIATRY [facility] Lab Results: +/- 30 days of the encounter This section includes the Chemistry and Hematology Lab Results on record with [place] for the patient. Radiology Reports and Pathology Reports are provided separately, in subsequent sections. Lab Results This section contains the Chemistry/Hematology Results that were resulted 30 days before or 30 daysafter the date of the Encounter. Date/Time Source Result Type Result - Unit Interpretation Reference Range Comment Mar 20, 2023 11:34 AM [facility] COVID-19 FLU/RSV DIAGNOSTIC PANEL Specimen Type: [...] management decisions.Cep heid FLUVID: HCPs: https://www. [place].gov/media/ 855570/downlo ad. Patients: https://www.[employer] da.gov/media/ 537063/downlo ad Ordering Provider: ISABELA ASENCIO Report Released Date/Time: Mar 20, 2023 11:31 AM Reporting Lab: [address] [address] Performing Lab: [address] [address] COVID-19 PCR (FLUVID) NEGATIVE NEGATIVE FLU A PCR (FLUVID) NEGATIVE FLU B PCR (FLUVID) NEGATIVE RSV PCR (FLUVID) NEGATIVE Social History: Smoking Status (Most current) and Tobacco Use (All prior to encounter date) This section includes the most current, and the historical, smoking and tobacco- related health factors from the [place] facility where the Encounter took place. Current Smoking Status This section includes the most current smoking, or tobacco-related health factor, from the [place] facility where the Encounter took place. Date/Time Current Smoking Status Comment Randal ity Oct 18, 2022 03:16 PM VA-TOBACCO QUIT 15 YRS OR MORE [place] [facility] [place] [facility] Tobacco Use History This section includes a history of the smoking, or tobacco-related health factors, that were collected on or before the date of the Encounter. The data comes from the [place] facility where the Encounter took place. Date/Time Smoking Status/Tobacco Use Comment [facility]reezy [facility]ility Oct 18, 2022 03:16 PM VA-TOBACCO QUIT 15 YRS OR MORE [facility] [place] [facility] Nov 12, 2021 10:30 AM VA-TOBACCO FORMER USER [facility] [place] [facility] Nov 12, 2021 10:30 AM VA-TOBACCO QUIT 5 TO < 15 YRS [facility] [place] [facility] Oct 01, 2020 11:02 AM VA-TOBACCO FORMER USER [facility] [place] [facility] Oct 01, 2020 11:02 AM VA-TOBACCO QUIT 15 YRS OR MORE [facility] [place] [facility] Oct 25, 2019 11:30 AM VA-TOBACCO FORMER USER [facility] [place] [facility] Oct 25, 2019 11:30 AM VA-TOBACCO QUIT 5 TO < 15 YRS [facility] [place] [facility] Sep 07, 2018 09:43 AM VA-TOBACCO FORMER USER [facility] [place] [facility] Sep 07, 2018 09:43 AM VA-TOBACCO QUIT 5 TO < 15 YRS [facility] [place] [facility] Apr 25, 2018 02:08 PM VA-TOBACCO USE DEC LINED TO ANSWER [facility] [place] [facility] Encounter Notes: All associated encounter notes This section contains the clinical notes associated to the Encounter. Date/Time Encounter Note(s) Provider Source Mar 20, 2023 08:34 AM RN PROGRESS NOTE: LOCAL TITLE: CCC: CLINICAL TRIAGE STANDARD TITLE: RN PROGRESS NOTE DATE OF NOTE: MAR 20, 2023@08:34:55 ENTRY DATE: MAR 20, 2023@08:34:55 AUTHOR: JOSE FRANCISCO BOO COSIGNER: URGENCY: STATUS: COMPLETED CCC: CLINICAL TRIAGE Has ADDENDA Patient Demographics Patient Name: NAINA BREEN Patient Primary Address: [address] [place] [address] [place] [address] Patient Primary Phone: [phone] Patient : 1955 Patient Age: 68 Call Back Number: [phone] Caller/Recipient Relation to Patient: Self Emergency Contact: CAMILA BREEN Triage Summary Conducted triage/discussed symptoms Utilized the Triage Tool: Yes Chief Complaint: Cough System WHEN: Within 8 Hours Nurse's Recommendation / WHEN: Within 8 Hours System WHERE: Urgent care center Nurse's Recommendation / WHERE: [facility]gent [facility] Patient Disposition Patient/Caregiver agrees to plan of care: No Patient WHERE: Clinic/[facility] Patient WHEN: Other Other - Patient When Disposition: as soon as possible Patient is Urgent or Emergent Nursing Plan and Disposition Referred patient to higher level of care Instructed to go to Urgent Care (UC) Nurse Summary Nurse Summary: Patient calls today with report of presenting to UC this weekend with left shoulder pain, evaluated, x-rays completed and discharged with no medication, only recommendation for follow up with PCP, has disk of films that he wants to get to his PCP. Patient also states that he has had a cough for 2 weeks. Triaged for cough, recommendation for UC within 8 hours that patient declined, he wants to be seen by his PCP as soon as possible. Documentation being sent to [facility], patient made aware that [facility] may not be able to schedule him today, but a message will be sent with request. Advised for any changes or worsening symptoms to report to UC or nearest ED for evaluation. Patient with verbalized understanding. Clinical Contact Center Codes Clinic/Location: V1 C[facility] PHONE CCC RN TXCC Triage Complete Triage Note: Phone Triage 20 Mar 2023 13:24:23 +0000 [facility] Demographics 68 y/o Male Results CC: Cough Software suggested: Within 8 Hours Software suggested follow-up location: Urgent care center Values and Measures Duration of CC: 2 Weeks Positive Responses HPI: cough, purulent sputum HPI: wheezing, new or worsening VS: respiratory rate not taken VS: temperature not taken Negative Responses Denies: HPI: breathing more rapidly than usual Denies: HPI: chest pain, pleuritic Denies: HPI: confusion, new or worsening Denies: HPI: cough, severe, onset within past 3 hours Denies: HPI: dyspnea, new or worsening Denies: HPI: fever, subjective Denies: HPI: sore throat Denies: HPI: vomiting Denies: MEDS: antibiotic Denies: MEDS: chemotherapy Denies: PMH: diabetes Denies: PMH: HIV positive Denies: PMH: sickle cell anemia Denies: PSH: organ transplant Denies: PSH: spleen removed /ta/ JOSE FRANCISCO BOO ... MSN-RN, A-CM Signed: 03/20/2023 08:35 Receipt Acknowledged By: 03/20/2023 13:58 /es/ Dixie Pepe RN, BSN Primary Care 03/20/2023 11:00 /es/ [facility]23 ADDENDUM STATUS: COMPLETED spoke with , he will come in today for Covid.and has appt scheduled for tomorrow at 11.30 with pcp. /ta/ Dixie Pepe RN, BSN Primary Care Signed: 03/20/2023 10:55 JOSE FRANCISCO BOO [place] [facility]
--- OUTSIDE RECORDS SUMMARY | 2024-02-15 17:23 | XMS_ITS | Encounter Summary ---
Author Name [facility] [place] [facility] [place] Address [address] [place] [address] Care Team Providers Care Senior Java Data Architect Name Role Phone ROSELYN PEREZ Primary Care [...] TRICA RE DODA WNR Oct 05, 2022 [facility] [id number] NOEMI BREEN ERT PATIENT MEDICARE (WNR) MEDICARE (M) PART A Feb 13, 2019 PART A [id number] HUNTERNOEMI SMALLWOOD ERT PATIENT MEDICARE (WNR) MEDICARE (M) PART B Feb 13, 2019 PART B [id number] NOEMI BREEN ERT PATIENT MEDICARE (WNR) MEDICARE (M) PART A Feb 13, 2019 PART A [id number] NOEMI BREEN ERT PATIENT MEDICARE (WNR) MEDICARE (M) PART B Feb 13, 2019 PART B [id number] [phone] NOEMI BREEN ERT PATIENT MEDICARE (WNR) MEDICARE (M) PART A Feb 13, 2019 PART A [id number] NOEMI BREEN ERT PATIENT MEDICARE (WNR) MEDICARE (M) PART B Feb 13, 2019 PART B [id number] NOEMI BREEN ERT PATIENT FOR LIFE TFL* Feb 13, 2019 [id number] NOEMI BREEN ERT PATIENT FOR LIFE SUPPLEMEN SHAI TFL Feb 13, 2019 [facility] [id number] NOEMI BREEN ERT PATIENT -FO R-LIFE DIREC T CARE Oct 05, 2022 [facility] [id number] [phone] NOEMI BREEN ERT PATIENT Selected Encounter This section includes the information on record at [place] for the Encounter. Date/Time Encounter Type Encounter Description Reason Pro vider Source Mar 18, 2023 08:40 AM Outpatient Encounter ADMIN PAT ACTIVTIES (MASNONCT) IHE Encounter Template Text not used by [place] Plan of Treatment: Future Appointments (+ 6 months) and Future Tests (+/- 45 days) The Plan of Treatment section includes future care activities for the patient from all [place] treatmentfacilities. This section includes future appointments and future orders which are active, pending or scheduled. Future Appointments This section includes appointments that were scheduled to occur 6 months from the date of the Encounter, up to a maximum of 20 appointments. The data comes from all [place] treatment facilities. Appointment Date/Time Appointment Type Appointme nt Facility Name Mar 21, 2023 11:30 AM AM[place]ULATORY [place]ICINE [place] [facility] [place] [facility] Apr 28, 2023 10:30 AM AMBULATORY - PS[place]CHIATRY [place] [facility] [place] [facility] May 05, 2023 02:45 PM AMBULATORY - MEDICINE [place] [facility] [place] [facility] May 18, 2023 08:00 AM AMBULATORY - REHAB MEDICIN E [facility] [place] [facility] June 20, 2023 09:00 AM AMBULATORY - MEDICINE [place] [facility] [place] [facility] Jul 26, 2023 10:30 [facility] Jul 26, 2023 11:00 AM [facility] Jul 26, 2023 11:30 AM [facility] Aug 08, 2023 08:30 AM [facility] Aug 22, 2023 11:30 AM AMBULATORY - PSYCHIATRY [facility] Lab Results: +/- 30 days of the encounter This section includes the Chemistry and Hematology Lab Results on record with [place] for the patient. Radiology Reports and Pathology Reports are provided separately, in subsequent sections. Lab Results This section contains the Chemistry/Hematology Results that were resulted 30 days before or 30 daysafter the date of the Encounter. Date/Time Source Result Type Result - Unit Interpretation Reference Range Comment Mar 20, 2023 11:34 AM [facility] COVID-19 FLU/RSV DIAGNOSTIC PANEL Specimen Type: NASOPHARYNX [...] management decisions.Cep heid FLUVID: HCPs: https://www. da.gov/media/ 284066/downlo ad. Patients: https://www. da.gov/media/ 466568/downlo ad Ordering Provider: ISABELA ASENCIO Report Released Date/Time: Mar 20, 2023 11:31 AM Reporting Lab: [facility] [address] [facility] [address] Performing Lab: [address] [address] COVID-19 PCR (FLUVID) NEGATIVE NEGATIVE FLU A PCR (FLUVID) NEGATIVE FLU B PCR (FLUVID) NEGATIVE RSV PCR (FLUVID) NEGATIVE Social History: Smoking Status (Most current) and Tobacco Use (All prior to encounter date) This section includes the most current, and the historical, smoking and tobacco- related health factors from the [place] facility where the Encounter took place. Current Smoking Status This section includes the most current smoking, or tobacco-related health factor, from the [place] facility where the Encounter took place. Date/Time Current Smoking Status Comment Randal hyde Oct 18, 2022 03:16 PM VA-TOBACCO FORMER USER [place] [facility] [place] [facility] Tobacco Use History This section includes a history of the smoking, or tobacco-related health factors, that were collected on or before the date of the Encounter. The data comes from the [place] facility where the Encounter took place. Date/Time Smoking Status/Tobacco Use Comment Breezy allen Oct 18, 2022 03:16 PM VA-TOBACCO QUIT 15 YRS OR MORE [place] [facility] [place] [facility] Nov 12, 2021 10:30 AM VA-TOBACCO FORMER USER [facility] [place] [facility] Nov 12, 2021 10:30 AM VA-TOBACCO QUIT 5 TO < 15 YRS [facility] [place] [facility] Oct 01, 2020 11:02 AM VA-TOBACCO FORMER USER [place] [facility] [place] [facility] Oct 01, 2020 11:02 AM VA-TOBACCO QUIT 15 YRS OR MORE [facility] [place] [facility] Oct 25, 2019 11:30 AM VA-TOBACCO FORMER USER [place] [facility] [place] [facility] Oct 25, 2019 11:30 AM VA-TOBACCO QUIT 5 TO < 15 YRS [facility] [place] [facility] Sep 07, 2018 09:43 AM VA-TOBACCO FORMER USER [place] [facility] [place] [facility] Sep 07, 2018 09:43 AM VA-TOBACCO QUIT 5 TO < 15 YRS [place] [facility] [place] [facility] Apr 25, 2018 02:08 PM VA-TOBACCO USE DEC LINED TO ANSWER [place] [facility] [place] [facility] Encounter Notes: All associated encounter notes This section contains the clinical notes associated to the Encounter. 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
--- OUTSIDE RECORDS SUMMARY | 2024-02-15 17:23 | XMS_ITS | Encounter Summary ---
Author Name [facility] Organization [facility] Address [address] [place] [address] Care Team Providers Care Senior Payroll Manager Name Role Phone ROSELYN PEREZ Primary Care Provider NITISH Ramirez Primary Care Provider Unavailkashmir salas Insurance Providers: All historical and current [...] TRICA RE DODA WNR Oct 05, 2022 [facility] [id number] NOEMI BREEN ERT PATIENT MEDICARE (WNR) MEDICARE (M) PART B Feb 13, 2019 PART B [id number] HUNTERNOEMI [place] ERT PATIENT MEDICARE (WNR) MEDICARE (M) PART A Feb 13, 2019 PART A [id number] NOEMI BREEN ERT PATIENT MEDICARE (WNR) MEDICARE (M) PART A Feb 13, 2019 PART A [id number] [phone] NOEMI BREEN ERT PATIENT MEDICARE (WNR) MEDICARE (M) PART B Feb 13, 2019 PART B [id number] [phone] NOEMI BREEN ERT PATIENT MEDICARE (WNR) MEDICARE (M) PART A Feb 13, 2019 PART A [id number] NOEMI BREEN ERT PATIENT MEDICARE (WNR) MEDICARE (M) PART B Feb 13, 2019 PART B [id number] [phone] NOEMI BREEN ERT PATIENT FOR LIFE TFL* Feb 13, 2019 [id number] NOEMI BREEN ERT PATIENT FOR LIFE SUPPLEMEN SHAI TFL Feb 13, 2019 [facility] [id number] NOEMI BREEN ERT PATIENT -FO R-LIFE DIREC T CARE Oct 05, 2022 [facility] LIFE [id number] NOEMI BREEN ERT PATIENT Selected Encounter This section includes the information on record at [place] for the Encounter. Date/Time Encounter Type Encounter Description Reason Provider Source Mar 21, 2023 11:30 AM OFFICE O/P EST LOW 20 MIN PRIMARY CARE/MEDICINE ICD-10-CM M25.512 Pain in left shoulder NITISH ASENCIO [facility] Encounter Template Text not used by ME Assessments - Encounter Diagnoses This section includes the primary and secondary diagnoses documented for the Encounter. Date/Time Primary/Secondary Diagnosis Diagnosis Name Provider Source Mar 21, 2023 12:07 PM PRIMARY Pain in left shoulder NITISH ASENCIO [facility] Mar 21, 2023 12:07 PM SECONDARY Acute upper respiratory infection, unspecified NITISH ASENCIO [facility] Plan of Treatment: Future Appointments (+ 6 months) and Future Tests (+/- 45 days) The Plan of Treatment section includes future care activities for the patient from all [place] treatmentfacilities. This section includes future appointments and future orders which are active, pending or scheduled. Future Appointments This section includes appointments that were scheduled to occur 6 months from the date of the Encounter, up to a maximum of 20 appointments. The data comes from all [place] treatment facilities. Appointment Date/Time Appointment Type Appointme nt Facility Name Apr 28, 2023 10:30 AM AMBULATORY - PSYCHIATRY [facility] May 05, 2023 02:45 PM AMBULATORY - MEDICINE [facility] [place] [facility] May 18, 2023 08:00 AM AMBULATORY - [facility]HAB MEDICIN [facility] [place] [facility] June 20, 2023 09:00 AM AMBULATORY - MEDICINE [facility] [place] [facility] Jul 26, 2023 10:30 AM AMBULATORY - NONE [facility] [place] [facility] Jul 26, 2023 11:00 AM AMBULATORY - PSYCHIATRY [facility] [place] [facility] Jul 26, 2023 11:30 AM AMBULATORY - NONE [facility] [place] [facility] Aug 08, 2023 08:30 AM AMBULATORY - PSYCHIATRY [facility] [place] [facility] Aug 22, 2023 11:30 AM [facility] Lab Results: +/- 30 days of the encounter This section includes the Chemistry and Hematology Lab Results on record with ME for the patient. Radiology Reports and Pathology Reports are provided separately, in subsequent sections. Lab Results This section contains the Chemistry/Hematology Results that were resulted 30 days before or 30 daysafter the date of the Encounter. Date/Time Source Result Type Result - Unit Interpretation Reference Range Comment Mar 20, 2023 11:34 AM [facility] COVID-19 FLU/RSV DIAGNOSTIC PANEL Specimen Type: [id number] Comment: This test is authorized for emergency use only. False negative results may occur if virus is present at levels below the analytical limit of detection.Neg ative results do not preclude SARS-CoV-2, influenza or RSV infection and should not be used as the sole basis for treatment or other patient management decisions.Cep heid FLUVID: HCPs: https://www.f [place].gov/media/ 002307/downlo ad. Patients: https://www.[employer] [place].gov/media/ 834852/downlo ad Ordering Provider: NITISH ASENCIO Report Released Date/Time: Mar 20, 2023 11:31 AM Reporting Lab: [address] [id number] Performing Lab: [address] [id number] COVID-19 PCR (FLUVID) NEGATIVE NEGATIVE FLU A PCR (FLUVID) NEGATIVE FLU B PCR (FLUVID) NEGATIVE RSV PCR (FLUVID) NEGATIVE Vital Signs: All taken on the encounter date This section contains inpatient and outpatient Vital Signs collected on the date of the Encounter. Date/Time Temperature Pulse Blood Pressure Respiratory Rate SP02 Pain Height Weight Body Mass Index Source Mar 21, 2023 12:02 PM 136/66 [facility] [place] [facility] Mar 21, 2023 11:39 AM 98.8 88 160/104 18 95 9 259 37 [facility] [place] [facility] Social History: Smoking Status (Most current) and Tobacco Use (All prior to encounter date) This section includes the most current, and the historical, smoking and tobacco- related health factors from the ME facility where the Encounter took place. Current Smoking Status This section includes the most current smoking, or tobacco-related health factor, from the ME facility where the Encounter took place. Date/Time Current Smoking Status Comment Randal ity Oct 18, 2022 03:16 PM VA-TOBACCO QUIT 15 YRS OR MORE [facility] [place] [facility] Tobacco Use History This section includes a history of the smoking, or tobacco-related health factors, that were collected on or before the date of the Encounter. The data comes from the ME facility where the Encounter took place. Date/Time Smoking Status/Tobacco Use Comment F acility Oct 18, 2022 03:16 PM VA-TOBACCO QUIT 15 YRS OR MORE [facility] [place] [facility] Nov 12, 2021 10:30 AM VA-TOBACCO FORMER USER [facility] [place] [facility] Nov 12, 2021 10:30 AM VA-TOBACCO QUIT 5 TO < 15 YRS [facility] [place] [facility] Oct 01, 2020 11:02 AM VA-TOBACCO FORMER USER [facility] [place] [facility] Oct 01, 2020 11:02 AM VA-TOBACCO QUIT 15 YRS OR MORE [facility] [place] [facility] Oct 25, 2019 11:30 AM VA-TOBACCO FORMER USER [facility] [place] [facility] Oct 25, 2019 11:30 AM VA-TOBACCO QUIT 5 TO < 15 YRS [facility] [place] [facility] Sep 07, 2018 09:43 AM VA-TOBACCO FORMER USER [facility] [place] [facility] Sep 07, 2018 09:43 AM VA-TOBACCO QUIT 5 TO < 15 YRS [facility] [place] [facility] Apr 25, 2018 02:08 PM VA-TOBACCO USE DEC LINED TO ANSWER [facility] [place] [facility] Encounter Notes: All associated encounter notes This section contains the clinical notes associated to the Encounter. Date/Time Encounter Note(s) Provider Source Mar 21, 2023 12:03 PM PHYSICIAN NOTE: LOCAL TITLE: MD NOTE STANDARD TITLE: PHYSICIAN NOTE DATE OF NOTE: MAR 21, 2023@12:03 ENTRY DATE: MAR 21, 2023@12:03:27 AUTHOR: NITISH ASENCIO EXP COSIGNER: URGENCY: STATUS: COMPLETED Patient Name: NAINA BREEN VITALS: Patient temperature: 98.8 F [37.1 C] (03/21/2023 11:39) Blood pressure: 136/66 (03/21/2023 12:02) Patient height: 70 in [177.8 cm] (06/14/2021 09:56) Patient weight: 259 lb [117.48 kg] (03/21/2023 11:39) Patient BMI: BMI: 37.2 Patient pulse: 88 (03/21/2023 11:39) Patient respiration: 18 (03/21/2023 11:39) Patient Pulse Oximetry: 95% (03/21/2023 11:39) Pain Ratin (03/21/2023 11:39) Active [facility] Medications: Active Outpatient Medications (including Supplies): Active Outpatient Medications Status 1) AMLODIPINE BESYLATE 10MG TAB TAKE ONE TABLET BY MOUTH ACTIVE ONCE DAILY FOR BLOOD PRESSURE/HEART, DO NOT TAKE WITH GRAPEFRUIT JUICE 2) ARIPIPRAZOLE 20MG TAB TAKE ONE-HALF TABLET BY MOUTH ACTIVE ONCE DAILY MOOD 3) ATORVASTATIN CALCIUM 80MG TAB TAKE ONE-HALF TABLET BY ACTIVE MOUTH AT BEDTIME 4) LOSARTAN 25MG TAB TAKE ONE TABLET BY MOUTH ONCE DAILY ACTIVE FOR BLOOD PRESSURE/HEART 5) VENLAFAXINE HCL 75MG 24HR SA CAP TAKE ONE CAPSULE BY ACTIVE MOUTH ONCE DAILY Pending Outpatient Medications Status 1) DICLOFENAC NA 1% TOP GEL APPLY 2 GRAMS TOPICALLY PENDING THREE TIMES DAILY NEEDED FOR OSTEOARTHRITIS - USE DOSING CARD PROVIDED IN BOX Active Non-VA Medications Status 1) Non-VA MULTIVITAMIN CAP/TAB 1 TABLET BY MOUTH ONCE ACTIVE DAILY 2) Non-VA OTHER CAP/TAB AREDS EYE VITAMINS BY MOUTH ONCE ACTIVE DAILY 8 Total Medications Remote Medications: Active Medications from Remote Data TAMSULOSIN HCL 0.4MG CAP Sig: TAKE ONE CAPSULE BY MOUTH EVERY EVENING Quantity: 90 Days Supply: 90 Original # of Refills: 3 Rx Expiration: 04/07/23 Last filled 04/07/22 at [facility] (Active) ARIPIPRAZOLE 20MG TAB Sig: TAKE ONE-HALF TABLET BY MOUTH ONCE A DAY Quantity: 45 Days Supply: 90 Original # of Refills: 2 Rx Expiration: 08/03/23 Last filled 10/01/22 at [facility] (Active) ESCITALOPRAM OXALATE 20MG TAB Sig: TAKE ONE TABLET BY MOUTH ONCE A DAY FOR MAJOR DEPRESSIVE DISORDER. 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 No trauma, neck pain, numbness, weakness or decreased ambulation. Pain is anterior and lateral aspect of left shoulder without radiation. History of right shoulder arthroscopic surgery. Physical examination Well-developed well-nourished male in no acute distress Shoulders without erythema or swelling Full range of motion Neck full range of motion Normal sensory and motor COVID-19 PCR (FLUVID): NEGATIVE FLU A PCR (FLUVID): NEGATIVE FLU B PCR (FLUVID): NEGATIVE RSV PCR (FLUVID): NEGATIVE I discussed above test results with patient Assessment and plan: 1. Left shoulder pain: Patient went to [facility] urgent care 03-18-2023. X-rays showed osteoarthritis. Patient declined physical therapy today. Plan: Physiatry for injection. Patient advised to bring disc of x-rays with him to appointment. Patient advised no aspirin or nonsteroidals for 1 week before appointment. 2. Upper respiratory infection: Above tests negative. 3-day history of runny nose and sore throat. Patient says he is feeling much better today. Plan: Follow Already set for follow-up 06-20-2023 Medication Reconciliation: Outpatient: Has the patient been taking medications as documented in the EMLR? YES: The patient has been taking medications as documented in the EMLR. Essential Medication List for Review used to complete this medication reconciliation. INCLUDED IN THIS LIST: Alphabetical list of active outpatient prescriptions dispensed from this [facility] (local) and dispensed from another [place] or [facility] facility (remote) as well as inpatient orders (local, pending and active), local clinic medications, locally documented non-VA medications, and local prescriptions that have or been discontinued in the past 90 days. - All changes in medications, including all non-VA/Herbal/OTC medications were entered into CPRS. - If there were any medications the patient should no longer take, they were discontinued. - The patient/caregiver was instructed to update this list, discard old lists, and take this list to the next appointment, whether with a VA or non-VA provider. /ta/ Nitish Asencio MD Staff Physician Signed: 03/21/2023 12:07 NITISH ASENCIO [facility] [place] [facility] Mar 21, 2023 11:41 AM PREVENTIVE MEDICINE NURSING NOTE: LOCAL TITLE: CLINICAL REMINDERS/NURSING STANDARD TITLE: PREVENTIVE MEDICINE NURSING NOTE DATE OF NOTE: MAR 21, 2023@11:41 ENTRY DATE: MAR 21, 2023@11:41:36 AUTHOR: RENZO DE LA CRUZIGNER: URGENCY: STATUS: COMPLETED Homelessness/Food Insecurity Screen: In the past 2 months, have you been living in stable housing that you own, rent, or stay in as part of a household? Yes - Living in stable housing. Are you worried or concerned that in the next 2 months you may NOT have stable housing that you own, rent, or stay in as part of a household? No - Not worried about housing near future [facility] reports the following: Within the past 12 months, you worried whether your food would run out before you got money to buy more. Never true Within the past 12 months, the food you bought just didn't last and you didn't have money to get more. Never true /es/ RENZO DE LA CRUZ LPN Signed: 03/21/2023 11:42 RENZO DE LA CRUZ [facility]
--- OUTSIDE RECORDS SUMMARY | 2024-02-15 17:23 | XMS_ITS | Encounter Summary ---
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 Name Role Phone ROSELYN PEREZ Primary Care [...] TRICA RE DODA WNR Oct 05, 2022 [employer] [id number] NEOMI BREEN ERT PATIENT MEDICARE (WNR) MEDICARE (M) PART A Feb 13, 2019 PART A [id number] [place]EMI ERT PATIENT MEDICARE (WNR) MEDICARE (M) PART B Feb 13, 2019 PART B [id number] [phone] [id number] NOEMI BREEN ERT PATIENT MEDICARE (WNR) MEDICARE (M) PART A Feb 13, 2019 PART A [id number] NOEMI BREEN ERT PATIENT MEDICARE (WNR) MEDICARE (M) PART B Feb 13, 2019 PART B [id number] [phone] NOEMI BREEN ERT PATIENT MEDICARE (WNR) MEDICARE (M) PART A Feb 13, 2019 PART A [id number] [phone] NOEMI BREEN ERT PATIENT MEDICARE (WNR) MEDICARE (M) PART B Feb 13, 2019 PART B [id number] NOEMI BREEN ERT PATIENT FOR LIFE TFL* Feb 13, 2019 [id number] NOEMI BREEN ERT PATIENT FOR LIFE SUPPLEMEN SHAI TFL Feb 13, 2019 FOR LIFE [id number] NOEMI BREEN ERT PATIENT -FO R-LIFE DIREC T CARE Oct 05, 2022 FOR LIFE [id number] 90 NOEMI BREEN ERT PATIENT Selected Encounter This section includes the information on record at [place] for the Encounter. Date/Time Encounter Type Encounter Description Reason Pro vider Source Mar 18, 2023 09:01 AM Outpatient Encounter TELEPHONE TRIAGE IHE Encounter Template Text not used by [place] Plan of Treatment: Future Appointments (+ 6 months) and Future Tests (+/- 45 days) The Plan of Treatment section includes future care activities for the patient from all [place] treatmentfacilities. This section includes future appointments and future orders which are active, pending or scheduled. Future Appointments This section includes appointments that were scheduled to occur 6 months from the date of the Encounter, up to a maximum of 20 appointments. The data comes from all [place] treatment facilities. Appointment Date/Time Appointment Type Appointme nt Facility Name Mar 21, 2023 11:30 AM AMBULATORY - MEDICINE [place] [facility] [place] [facility] Apr 28, 2023 10:30 AM AMBULATORY - PSYCHIATRY [place] [facility] [place] [facility] May 05, 2023 02:45 PM AMBULATORY - MEDICINE [place] [facility] [place] [facility] May 18, 2023 08:00 AM AMBULATORY - REHAB MEDICIN E [place] [facility] [place] [facility] June 20, 2023 09:00 AM AMBULATORY - MEDICINE [place] [facility] [place] [facility] Jul 26, 2023 10:30 AM AMBULATORY - NONE [place] [facility] [place] [facility] Jul 26, 2023 11:00 AM AMBULATORY - PSYCHIATRY [facility] Jul 26, 2023 11:30 AM AMBULATORY - NONE [facility] Aug 08, 2023 08:30 AM AMBULATORY - PSYCHIATRY [facility] Aug 22, 2023 11:30 AM AMBULATORY - PSYCHIATRY [facility] Lab Results: +/- 30 days of the encounter This section includes the Chemistry and Hematology Lab Results on record with [place] for the patient. Radiology Reports and Pathology Reports are provided separately, in subsequent sections. Lab Results This section contains the Chemistry/Hematology Results that were resulted 30 days before or 30 daysafter the date of the Encounter. Date/Time Source Result Type Result - Unit Interpretation Reference Range Comment Mar 20, 2023 11:34 AM [facility] COVID-19 FLU/RSV DIAGNOSTIC PANEL Specimen Type: [...] management decisions.Cep heid FLUVID: HCPs: https://www.f da.gov/media/ 250006/downlo ad. Patients: https://www.f da.gov/media/ 228053/downlo ad Ordering Provider: NITISH ASENCIO Report Released Date/Time: Mar 20, 2023 11:31 AM Reporting Lab: [facility] [address] [facility] [address] Performing Lab: [address] [address] COVID-19 PCR (FLUVID) NEGATIVE NEGATIVE FLU A PCR (FLUVID) NEGATIVE FLU B PCR (FLUVID) NEGATIVE RSV PCR (FLUVID) NEGATIVE Social History: Smoking Status (Most current) and Tobacco Use (All prior to encounter date) This section includes the most current, and the historical, smoking and tobacco- related health factors from the [place] facility where the Encounter took place. Current Smoking Status This section includes the most current smoking, or tobacco-related health factor, from the [place] facility where the Encounter took place. Date/Time Current Smoking Status Comment Randal ity Oct 18, 2022 03:16 PM VA-TOBACCO FORMER USER [facility] Tobacco Use History This section includes a history of the smoking, or tobacco-related health factors, that were collected on or before the date of the Encounter. The data comes from the [place] facility where the Encounter took place. Date/Time Smoking Status/Tobacco Use Comment [facility] acility Oct 18, 2022 03:16 PM VA-TOBACCO QUIT 15 YRS OR MORE [facility] [place] [facility] Nov 12, 2021 10:30 AM VA-TOBACCO FORMER USER [facility] [place] [facility] Nov 12, 2021 10:30 AM VA-TOBACCO QUIT 5 TO < 15 YRS [facility] [place] [facility] Oct 01, 2020 11:02 AM VA-TOBACCO FORMER USER [place] [facility] [place] [facility] Oct 01, 2020 11:02 AM VA-TOBACCO QUIT 15 YRS OR MORE [place] [facility] [place] [facility] Oct 25, 2019 11:30 AM VA-TOBACCO FORMER USER [place] [facility] [place] [facility] Oct 25, 2019 11:30 AM VA-TOBACCO QUIT 5 TO < 15 YRS [facility] [place] [facility] Sep 07, 2018 09:43 AM VA-TOBACCO FORMER USER [place] [facility] [place] [facility] Sep 07, 2018 09:43 AM VA-TOBACCO QUIT 5 TO < 15 YRS [place] [facility] [place] [facility] Apr 25, 2018 02:08 PM VA-TOBACCO USE DEC LINED TO ANSWER [place] [facility] [place] [facility] Encounter Notes: All associated encounter notes This section contains the clinical notes associated to the Encounter. Date/Time Encounter Note(s) Provider Source Mar 20, 2023 10:56 AM ADDENDUM: LOCAL TITLE: Addendum STANDARD TITLE: ADDENDUM DATE OF NOTE: MAR 20, 2023@10:56:21 ENTRY DATE: MAR 20, 2023@10:56:22 AUTHOR: DIXIE PEPE COSIGNER: URGENCY: STATUS: COMPLETED please sign lab order. thank you. /ta/ Dixie Pepe RN, BSN Primary Care Signed: 03/20/2023 10:56 Receipt Acknowledged By: 03/21/2023 12:08 /ta/ Nitish Asencio MD Staff Physician --- Original Document --- 03/18/23 CCC: CLINICAL TRIAGE: Patient Demographics Patient Name: NAINA BREEN Patient Primary Address: [address] [place] [address] [place] [address] Patient Primary Phone: [phone] Patient : 1955 Patient Age: 68 Caller/Recipient Relation to Patient: Self Emergency Contact: CAMILA BREEN Triage Summary Conducted triage/discussed symptoms Pain Score: 10 (Severe Pain) Utilized the Triage Tool: Yes Chief Complaint: Shoulder Pain (one shoulder) System WHEN: Within 8 Hours Nurse's Recommendation / WHEN: Within 8 Hours System WHERE: Urgent care center Nurse's Recommendation / WHERE: Urgent Non-VA WHEN/WHERE modifier reason: Distance from Hospital COVID Screening No known exposure Screen is negative Patient Disposition Patient/Caregiver agrees to plan of care: Yes Patient is Urgent or Emergent Nursing Plan and Disposition Referred patient to higher level of care Other course(s) of action Instructed to go to Urgent Care ([facility]) Provided location of Urgent Care Center Advised of [place] [facility] Benefits Generated msg to PACT/Provider Provided guidance for worsening symptoms: *Caller/Patient* advised to call facilities [place] Clinical Contact Center or seek immediate medical attention for new or worsening symptoms Nurse Summary Nurse Summary: called with c/o worsening 10/10 sharp L shoulder pain x1 week. states pain originates is in the rotator cuff and radiates down LLE. Endorses having normal ROM. Denies redness, swelling, F, cold/flu-like s/s, recent injury, CP, SOB, palpitations, faintness, sweatiness, N/V, OTC MEDS: 10 ASA/day [facility] was requesting an apt with PACT for Monday. RN advised not able to make apts with PCP after hours. Advised RN recommendation is to seek urgent care through [facility] within 8 hours. Provided [facility] with [facility] location and provided Eligibility phone number. Advised to call back or seek care sooner with new or worsening s/s. agreed. Notified Note forwarded to PACT to review and f/u. Clinical Contact Center Codes Clinic/Location: V1 CWM PHONE CCC RN WHEN TXCC Triage Complete Triage Note: Phone Triage Sat, 18 Mar 2023 13:44:15 +0000 [facility] Demographics 68 y/o Male Results CC: Shoulder Pain (one shoulder) Software suggested: Within 8 Hours Software suggested follow-up location: Urgent care center, consider virtual care Values and Measures Duration of CC: 1 Weeks Positive Responses HPI: shoulder pain, severe HPI: shoulder pain, worsening VS: temperature not taken Negative Responses Denies: HPI: chest pain, with shoulder pain Denies: HPI: diaphoresis, with shoulder pain Denies: HPI: dyspnea, with shoulder pain Denies: HPI: lightheadedness and shoulder pain, duration longer than 5 minutes Denies: HPI: nausea and shoulder pain, duration longer than 5 minutes Denies: HPI: neck or jaw pain with shoulder pain Denies: HPI: palpitations, with shoulder pain Denies: HPI: shoulder injury, within past 2 days Denies: HPI: shoulder swelling, with shoulder pain Denies: HPI: skin erythema, shoulder Denies: HPI: skin lump, swollen, painful, over the shoulder Denies: HPI: skin swelling, shoulder, worsening Denies: HPI: skin tenderness, shoulder, worsening Denies: HPI: syncope, with shoulder pain Denies: HPI: weakness, with shoulder pain, duration longer than 5 minutes Denies: PMH: angina Denies: PMH: heart attack Denies: PMH: rheumatoid arthritis Denies: PMH: systemic lupus erythematosus Denies: PSH: shoulder surgery, within past week [facility] Education Verbal Education Provided for: Shoulder Pain Home Care /es/ Natasha Michaels RN VISN 2 CCC NURSE Signed: 03/18/2023 09:01 Receipt Acknowledged By: 03/20/2023 11:08 /ta/ Dixie Pepe RN, BSN Primary Care DIXIE PEPE [place] [facility] Mar 18, 2023 09:01 AM RN PROGRESS NOTE: LOCAL TITLE: CCC: CLINICAL TRIAGE STANDARD TITLE: RN PROGRESS NOTE DATE OF NOTE: MAR 18, 2023@09:01:26 ENTRY DATE: MAR 18, 2023@09:01:26 AUTHOR: NATASHA MICHAELS COSIGNER: URGENCY: STATUS: COMPLETED CCC: CLINICAL TRIAGE Has ADDENDA Patient Demographics Patient Name: NAINA BREEN Patient Primary Address: [address] [place] [address] Patient Primary Phone: [phone] Patient : 1955 Patient Age: 68 Caller/Recipient Relation to Patient: Self Emergency Contact: CAMILA BREEN Triage Summary Conducted triage/discussed symptoms Pain Score: 10 (Severe Pain) Utilized the Triage Tool: Yes Chief Complaint: Shoulder Pain (one shoulder) System WHEN: Within 8 Hours Nurse's Recommendation / WHEN: Within 8 Hours System WHERE: Urgent care center Nurse's Recommendation / WHERE: Urgent Non-VA WHEN/WHERE modifier reason: Distance from Hospital COVID Screening No known exposure Screen is negative Patient Disposition Patient/Caregiver agrees to plan of care: Yes Patient is Urgent or Emergent Nursing Plan and Disposition Referred patient to higher level of care Other course(s) of action Instructed to go to Urgent Care ([facility]) Provided location of Urgent Care Center Advised of [place] [facility] Benefits Generated msg to PACT/Provider Provided guidance for worsening symptoms: *Caller/Patient* advised to call facilities [place] Clinical Contact Center or seek immediate medical attention for new or worsening symptoms Nurse Summary Nurse Summary: [facility] called with c/o worsening 10/10 sharp L shoulder pain x1 week. [facility] states pain originates is in the rotator cuff and radiates down LLE. Endorses having normal ROM. Denies redness, swelling, F, cold/flu-like s/s, recent injury, CP, SOB, palpitations, faintness, sweatiness, N/V, OTC MEDS: 10 ASA/day [facility] was requesting an apt with PACT for Monday. RN advised not able to make apts with PCP after hours. Advised RN recommendation is to seek urgent care through [facility] within 8 hours. Provided [facility] with [facility] location and provided Eligibility phone number. Advised to call back or seek care sooner with new or worsening s/s. [facility] agreed. Notified Note forwarded to [facility] to review and f/u. Clinical Contact Center Codes Clinic/Location: V1 CWM PHONE CCC RN WHEN LACC Triage Complete Triage Note: Phone Triage Sat, 18 Mar 2023 13:44:15 +0000 [facility] Demographics 68 y/o Male Results CC: Shoulder Pain (one shoulder) Software suggested: Within 8 Hours Software suggested follow-up location: Urgent care center, consider virtual care Values and Measures Duration of CC: 1 Weeks Positive Responses HPI: shoulder pain, severe HPI: shoulder pain, worsening VS: temperature not taken Negative Responses Denies: HPI: chest pain, with shoulder pain Denies: HPI: diaphoresis, with shoulder pain Denies: HPI: dyspnea, with shoulder pain Denies: HPI: lightheadedness and shoulder pain, duration longer than 5 minutes Denies: HPI: nausea and shoulder pain, duration longer than 5 minutes Denies: HPI: neck or jaw pain with shoulder pain Denies: HPI: palpitations, with shoulder pain Denies: HPI: shoulder injury, within past 2 days Denies: HPI: shoulder swelling, with shoulder pain Denies: HPI: skin erythema, shoulder Denies: HPI: skin lump, swollen, painful, over the shoulder Denies: HPI: skin swelling, shoulder, worsening Denies: HPI: skin tenderness, shoulder, worsening Denies: HPI: syncope, with shoulder pain Denies: HPI: weakness, with shoulder pain, duration longer than 5 minutes Denies: PMH: angina Denies: PMH: heart attack Denies: PMH: rheumatoid arthritis Denies: PMH: systemic lupus erythematosus Denies: PSH: shoulder surgery, within past week Education Verbal Education Provided for: Shoulder Pain Home Care /ta/ Natasha Michaels RN VISN 2 [facility] NURSE Signed: 03/18/2023 09:01 Receipt Acknowledged By: 03/20/2023 11:08 /jenny Pepe RN, BSN Primary Care 03/20/2023 ADDENDUM STATUS: COMPLETED please sign lab order. thank you. /jenny Pepe RN, BSN Primary Care Signed: 03/20/2023 10:56 Receipt Acknowledged By: * AWAITING SIGNATURE * NITISH ASENCIO KRISTEN [facility]
--- OUTSIDE RECORDS SUMMARY | 2024-02-15 17:23 | XMS_ITS | Encounter Summary ---
Author Name [facility] Organization [facility] ([place]) Address [address] [place] [address] Care Team Providers Care Meatman Name Role Phone ROSELYN PEREZ Primary Care [...] [id number] NOEMI BREEN ERT PATIENT MEDICARE (WNR) MEDICARE (M) PART A Feb 13, 2019 PART A [id number] [phone] NOEMI BREEN ERT PATIENT MEDICARE (WNR) MEDICARE (M) PART B Feb 13, 2019 PART B [id number] NOEMI BREEN ERT PATIENT MEDICARE (WNR) MEDICARE (M) PART A Feb 13, 2019 PART A [id number] NOEMI BREEN ERT PATIENT MEDICARE (WNR) MEDICARE (M) PART B Feb 13, 2019 PART B [id number] [phone] NOEMI BREEN ERT PATIENT MEDICARE (WNR) MEDICARE (M) PART A Feb 13, 2019 PART A [id number] NOEMI BREEN ERT PATIENT MEDICARE (WNR) MEDICARE (M) PART B Feb 13, 2019 PART B [id number] [phone] NOEMI BREEN ERT PATIENT FOR LIFE TFL* Feb 13, 2019 [id number] NOEMI BREEN ERT PATIENT FOR LIFE SUPPLEMEN SHAI TFL Feb 13, 2019 FOR LIFE [id number] 90 NOEMI BREEN ERT PATIENT -FO R-LIFE DIREC T CARE Oct 05, 2022 FOR LIFE [id number] 90 NOEMI BREEN ERT PATIENT Selected Encounter This section includes the information on record at [place] for the Encounter. Date/Time Encounter Type Encounter Description Reason Pro vider Source Mar 30, 2023 04:10 PM Outpatient Encounter PRIMARY CARE/MEDICINE IHE Encounter Template Text not used by [place] [...] AMBULATORY - PSYCHIATRY [place] [facility] [place] [facility] May 05, 2023 02:45 PM AMBULATORY - MEDICINE [place] [facility] [place] [facility] May 18, 2023 08:00 AM AMBULATORY - REHAB MEDICIN E [facility] [place] [facility] June 20, 2023 09:00 AM AMBULATORY - MEDICINE [place] [facility] [place] [facility] Jul 26, 2023 10:30 AM AMBULATORY - NONE [place] [facility] [place] [facility] Jul 26, 2023 11:00 AM AMBULATORY - PSYCHIATRY [place] [facility] [place] [facility] Jul 26, 2023 11:30 AM AMBULATORY - NONE [facility] Aug 08, 2023 08:30 AM AMBULATORY - PSYCHIATRY [facility] Aug 22, 2023 11:30 AM AMBULATORY - PSYCHIATRY [facility] Sep 26, 2023 09:00 AM AMBULATORY - MEDICINE [facility] Lab Results: +/- 30 days of the [...] Result - Unit Interpretation Reference Range Comment Apr 28, 2023 11:03 AM [facility] LIPID PANEL, NON FASTING Specimen Type: SERUM No comment entered. Ordering Provider: ROSHAN MESA MD Report Released Date/Time: Apr 28, 2023 10:40 AM Reporting Lab: [facility] [address] [facility] [address] Performing Lab: [facility] [address] [facility] [address] CHOLESTEROL 183 mg/dL TRIGLYCERIDE 304 mg/dL H 0-150 LDL calculated Reflex to dLDL mg/dL 0-129 CHOL/HDL 4.9 HDL CHOLESTEROL 37 mg/dL L 40-60 LDL DIRECT 110 mg/dL Mar 20, 2023 11:34 AM [facility] COVID-19 FLU/RSV DIAGNOSTIC PANEL Specimen Type: [...] management decisions.Cep heid FLUVID: HCPs: https://www. [place].gov/media/ 166258/downlo ad. Patients: https://www. da.gov/media/ 272620/downlo ad Ordering Provider: NITISH ASENCIO Report Released Date/Time: Mar 20, 2023 11:31 AM Reporting Lab: [place] [facility] [place] [facility] [address] [facility] [address] Performing Lab: [place] [facility] [place] [facility] [address] [facility] [address] COVID-19 PCR (FLUVID) NEGATIVE NEGATIVE FLU A [...] took place. Date/Time Current Smoking Status Comment Facil ity Oct 18, 2022 03:16 PM VA-TOBACCO FORMER USER [place] [facility] [place] [facility] Tobacco Use History This section includes a history of the smoking, or tobacco-related health factors, that were collected on or before the date of the Encounter. The data comes from the [place] facility where the Encounter took place. Date/Time Smoking Status/Tobacco Use Comment F acility Oct 18, 2022 03:16 PM VA-TOBACCO QUIT 15 YRS OR MORE [facility] [place] [facility] Nov 12, 2021 10:30 AM VA-TOBACCO FORMER USER [facility] [place] [facility] Nov 12, 2021 10:30 AM VA-TOBACCO QUIT 5 TO < 15 YRS [facility] [place] [facility] Oct 01, 2020 11:02 AM VA-TOBACCO FORMER USER [facility] [place] [facility] Oct 01, 2020 11:02 AM VA-TOBACCO QUIT 15 YRS OR MORE [facility] [place] [facility] Oct 25, 2019 11:30 AM VA-TOBACCO FORMER USER [facility] [place] [facility] Oct 25, 2019 11:30 AM VA-TOBACCO QUIT 5 TO < 15 YRS [facility] [place] [facility] Sep 07, 2018 09:43 AM VA-TOBACCO FORMER USER [facility] [place] [facility] Sep 07, 2018 09:43 AM VA-TOBACCO QUIT 5 TO < 15 [facility] [place] [facility] Apr 25, 2018 02:08 PM VA-TOBACCO USE DEC [facility] Encounter Notes: All associated encounter notes This section contains the clinical notes associated to the Encounter. Date/Time Encounter Note(s) Provider Source Mar 30, 2023 04:10 PM NONVA CONSULT: LOCAL TITLE: MD/OUTSIDE CONSULT REPORT SUMMARY STANDARD TITLE: NONVA CONSULT DATE OF NOTE: MAR 30, 2023@16:10 ENTRY DATE: MAR 30, 2023@16:10:08 AUTHOR: NITISH ASENCIO EXP COSIGNER: URGENCY: STATUS: COMPLETED [facility] 03-23-2023 PSA 0.56 /es/ Nitish Asencio MD Staff Physician Signed: 03/30/2023 16:10 NITISH ASENCIO [facility]
--- OUTSIDE RECORDS SUMMARY | 2024-02-15 17:23 | XMS_ITS | Encounter Summary ---
Author Name [facility] Organization [facility] Address [address] [place] [address] Care Team Providers Care Lye Boiler Name Role Phone ROSELYN PEREZ Primary Care [...] TR[id number] NOEMI BREEN ERT PATIENT MEDICARE (WNR) MEDICARE (M) PART B Feb 13, 2019 PART B [id number] [phone] NOEMI BREEN ERT PATIENT MEDICARE (WNR) MEDICARE (M) PART A Feb 13, 2019 PART A [id number] NOEMI BREEN ERT PATIENT MEDICARE (WNR) MEDICARE (M) PART A Feb 13, 2019 PART A [id number] NOEMI BREEN ERT PATIENT MEDICARE (WNR) MEDICARE (M) PART B Feb 13, 2019 PART B [id number] [phone] NOEMI BREEN ERT PATIENT MEDICARE (WNR) MEDICARE (M) PART A Feb 13, 2019 PART A [id number] NOEMI BREEN ERT PATIENT MEDICARE (WNR) MEDICARE (M) PART B Feb 13, 2019 PART B [id number] NOEMI BREEN ERT PATIENT FOR LIFE TFL* Feb 13, 2019 [id number] NOEMI BREEN ERT PATIENT FOR LIFE SUPPLEMEN SHAI TFL Feb 13, 2019 [facility] [id number] NOEMI BREEN ERT PATIENT -FO R-LIFE DIREC T CARE Oct 05, 2022 [facility] [id number] 90 NOEMI BREEN ERT PATIENT Selected Encounter This section includes the information on record at [place] for the Encounter. Date/Time Encounter Type Encounter Description Reason Pro vider Source Mar 23, 2023 12:00 AM Outpatient Encounter EVENT (HISTORICAL) IHE Encounter Template Text not used by [place] Plan of Treatment: Future Appointments (+ 6 months) and Future Tests (+/- 45 days) The Plan of Treatment section includes future care activities for the patient from all [place] treatmentfacilities. This section includes future appointments and future orders which are active, pending or scheduled. Future Appointments This section includes appointments that were scheduled to occur 6 months from the date of the Encounter, up to a maximum of 20 appointments. The data comes from all [place] treatment facilities. Appointment Date/Time Appointment Type Appointme nt Facility Name Apr 28, 2023 10:30 AM AMBULATORY - PSYCHIATRY [facility] [place] [facility] May 05, 2023 02:45 PM AMBULATORY - MEDICINE [facility] [place] [facility] May 18, 2023 08:00 AM AMBULATORY - REHAB MEDICIN E [facility] [place] [facility] June 20, 2023 09:00 AM AMBULATORY - MEDICINE [facility] [place] [facility] Jul 26, 2023 10:30 AM AMBULATORY - NONE [facility] [place] [facility] Jul 26, 2023 11:00 AM AMBULATORY - PSYCHIATRY [facility] [place] [facility] Jul 26, 2023 11:30 AM AMBULATORY - NONE [facility] Aug 08, 2023 08:30 AM AMBULATORY - PSYCHIATRY [facility] Aug 22, 2023 11:30 AM AMBULATORY - PSYCHIATRY [facility] Lab Results: +/- 30 days of the encounter This section includes the Chemistry and Hematology Lab Results on record with [place] for the patient. Radiology Reports and Pathology Reports are provided separately, in subsequent sections. Lab Results This section contains the Chemistry/Hematology Results that were resulted 30 days before or 30 daysafter the date of the Encounter. Date/Time Source Result Type Result - Unit Interpretation Reference Range Comment Mar 20, 2023 11:34 AM [facility] COVID-19 FLU/RSV DIAGNOSTIC PANEL Specimen Type: [...] management decisions.Cep heid FLUVID: HCPs: https://www. [place].gov/media/ 029221/downlo ad. Patients: https://www.[employer] [place].gov/media/ 613990/downlo ad Ordering Provider: ISABELA ASENCIO Report Released Date/Time: Mar 20, 2023 11:31 AM Reporting Lab: [address] [address] Performing Lab: [address] [address] COVID-19 PCR (FLUVID) NEGATIVE NEGATIVE FLU A PCR (FLUVID) NEGATIVE FLU B PCR (FLUVID) NEGATIVE RSV PCR (FLUVID) NEGATIVE Social History: Smoking Status (Most current) and Tobacco Use (All prior to encounter date) This section includes the most current, and the historical, smoking and tobacco- related health factors from the [place] facility where the Encounter took place. Current Smoking Status This section includes the most current smoking, or tobacco-related health factor, from the [place] facility where the Encounter took place. Date/Time Current Smoking Status Comment Facil ity Oct 18, 2022 03:16 PM VA-TOBACCO QUIT 15 YRS OR MORE [facility] Tobacco Use History This section includes a history of the smoking, or tobacco-related health factors, that were collected on or before the date of the Encounter. The data comes from the [place] facility where the Encounter took place. Date/Time Smoking Status/Tobacco Use Comment Breezy allen Oct 18, 2022 03:16 PM VA-TOBACCO QUIT 15 YRS OR MORE [facility] [place] [facility] Nov 12, 2021 10:30 AM VA-TOBACCO FORMER USER [facility] [place] [facility] Nov 12, 2021 10:30 AM VA-TOBACCO QUIT 5 TO < 15 YRS [facility] [place] [facility] Oct 01, 2020 11:02 AM VA-TOBACCO FORMER USER [facility] [place] [facility] Oct 01, 2020 11:02 AM VA-TOBACCO QUIT 15 YRS OR MORE [facility] [place] [facility] Oct 25, 2019 11:30 AM VA-TOBACCO FORMER USER [facility] [place] [facility] Oct 25, 2019 11:30 AM VA-TOBACCO QUIT 5 TO < 15 YRS [facility] [place] [facility] Sep 07, 2018 09:43 AM VA-TOBACCO FORMER USER [facility] [place] [facility] Sep 07, 2018 09:43 AM VA-TOBACCO QUIT 5 TO < 15 YRS [facility] [place] [facility] Apr 25, 2018 02:08 PM VA-TOBACCO USE DEC LINED TO ANSWER [facility] [place] [facility] Encounter Notes: All associated encounter notes This section contains the clinical notes associated to the Encounter. Date/Time Encounter Note(s) Provider Source Mar 23, 2023 12:00 AM NONVA DIAGNOSTIC S TUDY REPORT: LOCAL TITLE: NON-VA DIAGNOSTICS STANDARD TITLE: NONVA DIAGNOSTIC STUDY REPORT DATE OF NOTE: MAR 23, 2023 ENTRY DATE: MAR 31, 2023@12:39:03 AUTHOR: SAMIR FREED EXP COSIGNER: URGENCY: STATUS: COMPLETED VistA Imaging - Scanned Document SCANNED DOCUMENT SIGNATURE NOT REQUIRED Electronically Filed: 03/31/2023 by: SAMIR FREED HOUSE WORKER [facility] FREED [facility]
--- OUTSIDE RECORDS SUMMARY | 2024-02-15 17:24 | XMS_ITS | Encounter Summary ---
Author Name [facility] [place] [facility] [place] Address [address] [place] [address] Care Team Providers Care Local Area Network Systems Adminstrator Name Role Phone ROSELYN PEREZ Primary Care [...] TRICA RE DODA WNR Oct 05, 2022 [facility] [id number] NOEMI BREEN ERT PATIENT MEDICARE (WNR) MEDICARE (M) PART B Feb 13, 2019 PART B [id number] HUNTERNOEMI [place]OD ERT PATIENT MEDICARE (WNR) MEDICARE (M) PART A Feb 13, 2019 PART A [id number] NOEMI BREEN ERT PATIENT MEDICARE (WNR) MEDICARE (M) PART A Feb 13, 2019 PART A [id number] [phone] NOEMI BREEN ERT PATIENT MEDICARE (WNR) MEDICARE (M) PART B Feb 13, 2019 PART B [id number] [phone] NOEMI BREEN ERT PATIENT MEDICARE (WNR) MEDICARE (M) PART A Feb 13, 2019 PART A [id number] [phone] NOEMI BREEN ERT PATIENT MEDICARE (WNR) MEDICARE (M) PART B Feb 13, 2019 PART B [id number] NOEMI BREEN ERT PATIENT FOR LIFE TFL* Feb 13, 2019 [id number] NOEMI BREEN ERT PATIENT FOR LIFE SUPPLEMEN SHAI TFL Feb 13, 2019 [facility] [id number] 90 NOEMI BREEN ERT PATIENT -FO R-LIFE DIREC T CARE Oct 05, 2022 [facility] [id number] 90 NOEMI BREEN ERT PATIENT Selected Encounter This section includes the information on record at [place] for the Encounter. 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 This section includes future appointments and future orders which are active, pending or scheduled. Future Appointments This section includes appointments that were scheduled to occur 6 months from the date of the Encounter, up to a maximum of 20 appointments. The data comes from all [place] treatment facilities. Appointment Date/Time Appointment Type Appointme nt Facility Name Jul 26, 2023 10:30 AM AMBULATORY - NONE [facility] [place] [facility] Jul 26, 2023 11:00 AM AMBULATORY - PSYCHIATRY [facility] [place] [facility] Jul 26, 2023 11:30 AM AMBULATORY - NONE [facility] [place] [facility] Aug 08, 2023 08:30 AM AMBULATORY - PSYCHIATRY [facility] [place] [facility] Aug 22, 2023 11:30 AM AMBULATORY - PSYCHIATRY [facility] [place] [facility] Sep 26, 2023 09:00 AM AMBULATORY - MEDICINE [facility] [place] [facility] Oct 21, 2023 09:00 AM AMBULATORY - MEDICINE [facility] [place] [facility] Oct 25, 2023 10:00 AM AMBULATORY - NONE [facility] [place] [facility] Nov 09, 2023 09:30 AM AMBULATORY - PSYCHIATRY [facility] [place] [facility] Nov 09, 2023 11:20 AM AMBULATORY - MEDICINE [facility] [place] [facility] Nov 23, 2023 03:30 PM AMBULATORY - MEDICINE [facility] [place] [facility] Dec 20, 2023 02:30 PM AMBULATORY - MEDICINE [facility] [place] [facility] Active, Pending, and Scheduled Orders This section includes a listing of several types of active, pending, and scheduled orders, including clinic medications orders, diagnostic test orders, procedure orders and consult orders; where the start date of the order is 45 days before the date of the Encounter or 45 days after the date of theEncounter. The data comes from all [place] treatment facilities. Test Date/Time Test Type Test Details Facility Name June 20, 2023 12:00 AM Laboratory - Chemistry Order BASIC METABOLIC PANEL (fasting) BLOOD (SST-SERUM) [facility] [place] [facility] June 20, 2023 12:00 AM Laboratory - Chemistry Order LIVER FUNCTION BLOOD (SST-SERUM) [facility] [place] [facility] June 20, 2023 12:00 AM Laboratory - Chemistry Order LIPID PANEL FASTING BLOOD (SST-SERUM) [facility] [place] [facility] June 20, 2023 12:00 AM Laboratory - Chemistry Order CBC AND DIFF (AUTO) BLOOD (LAV[facility]BLOOD) [facility] June 20, 2023 12:00 AM Laboratory - Chemistry Order PSA BLOOD (SST-SERUM) [facility] June 20, 2023 12:00 AM Laboratory - Chemistry Order TSH BLOOD (SST-SERUM) [facility] June 20, 2023 12:00 AM Laboratory - Chemistry Order URINALYSIS CLEAN CATCH URINE [facility] June 20, 2023 12:00 AM Laboratory - Chemistry Order CALCIUM BLOOD (SST-SERUM) [facility] June 20, 2023 12:00 AM Laboratory - Chemistry Order VITAMIN B12 BLOOD (SST-SERUM) [facility] June 20, 2023 12:00 AM Laboratory - Chemistry Order FOLATE (WROX) BLOOD (SST-SERUM) [facility] Vital Signs: All taken on the encounter date This section contains inpatient and outpatient Vital Signs collected on the date of the Encounter. Date/Time Temperature Pulse Blood Pressure Respiratory Rate SP02 Pain Height Weight Body Mass Index Source June 20, 2023 09:30 AM 134/[facility] June 20, 2023 09:03 AM 98.6 77 142/82 16 93 0 70 257.3 37 [facility] Immunizations: All administered on the encounter date This section contains immunizations associated to the Encounter. Immunization Series Date Issued Reaction Comments COVID-19 (MODERNA), MRNA, LN P-S, PF, 50 MCG/0.5 ML (AGES 12+ YEARS) 5 June 20, 2023 Social History: Smoking Status (Most current) and Tobacco Use (All prior to encounter date) This section includes the most current, and the historical, smoking and tobacco- related health factors from the [place] facility where the Encounter took place. Current Smoking Status This section includes the most current smoking, or tobacco-related health factor, from the [place] facility where the Encounter took place. Date/Time Current Smoking Status Comment Randal hyde Oct 18, 2022 03:16 PM VA-TOBACCO FORMER USER [facility] Tobacco Use History This section includes a history of the smoking, or tobacco-related health factors, that were collected on or before the date of the Encounter. The data comes from the [place] facility where the Encounter took place. Date/Time Smoking Status/Tobacco Use Comment F acility Oct 18, 2022 03:16 PM VA-TOBACCO QUIT 15 YRS OR MORE [facility] [place] [facility] Nov 12, 2021 10:30 AM VA-TOBACCO FORMER USER [facility] [place] [facility] Nov 12, 2021 10:30 AM VA-TOBACCO QUIT 5 TO < 15 YRS [facility] [place] [facility] Oct 01, 2020 11:02 AM VA-TOBACCO FORMER USER [facility] [place] [facility] Oct 01, 2020 11:02 AM VA-TOBACCO QUIT 15 YRS OR MORE [facility] [place] [facility] Oct 25, 2019 11:30 AM VA-TOBACCO FORMER USER [facility] [place] [facility] Oct 25, 2019 11:30 AM VA-TOBACCO QUIT 5 TO < 15 YRS [facility] [place] [facility] Sep 07, 2018 09:43 AM VA-TOBACCO FORMER USER [facility] [place] [facility] Sep 07, 2018 09:43 AM VA-TOBACCO QUIT 5 TO < 15 YRS [facility] [place] [facility] Apr 25, 2018 02:08 PM VA-TOBACCO USE DEC LINED TO ANSWER [place] [facility] [place] [facility] Encounter Notes: All associated encounter notes This section contains the clinical notes associated to the Encounter. Date/Time Encounter Note(s) Provider Source June 20, 2023 09:35 AM PHYSICIAN NOTE: LOCAL TITLE: MD NOTE STANDARD TITLE: PHYSICIAN NOTE DATE OF NOTE: JUNE 20, 2023@09:35 ENTRY DATE: JUNE 20, 2023@09:35:27 AUTHOR: NITISH ASENCIO COSIGNER: URGENCY: STATUS: COMPLETED Patient Name: NAINA BREEN VITALS: Patient temperature: 98.6 F [37.0 C] (06/20/2023 09:03) Blood pressure: 134/64 (06/20/2023 09:30) Patient height: 70 in [177.8 cm] (06/20/2023 09:03) Patient weight: 257.3 lb [116.71 kg] (06/20/2023 09:03) Patient BMI: BMI: 37.0 Patient pulse: 77 (06/20/2023 09:03) Patient respiration: 16 (06/20/2023 09:03) Patient Pulse Oximetry: 93% (06/20/2023 09:03) Pain Ratin (06/20/2023 09:03) Active [facility] Medications: Active Outpatient Medications (including Supplies): Active Outpatient Medications Status 1) AMLODIPINE BESYLATE 10MG TAB TAKE ONE TABLET BY MOUTH ACTIVE ONCE DAILY FOR BLOOD PRESSURE/HEART, DO NOT TAKE WITH GRAPEFRUIT JUICE 2) ARIPIPRAZOLE 20MG TAB TAKE ONE-HALF TABLET BY MOUTH ACTIVE ONCE DAILY MOOD 3) ATORVASTATIN CALCIUM 80MG TAB TAKE ONE-HALF TABLET BY ACTIVE MOUTH AT BEDTIME 4) DICLOFENAC NA 1% TOP GEL APPLY 2 GRAMS TOPICALLY ACTIVE THREE TIMES DAILY NEEDED DIRECTED FOR LEFT SHOULDER PAIN - USE DOSING CARD PROVIDED IN BOX 5) LOSARTAN 25MG TAB TAKE ONE TABLET BY MOUTH ONCE DAILY ACTIVE FOR BLOOD PRESSURE/HEART 6) VENLAFAXINE HCL 75MG 24HR SA CAP TAKE ONE CAPSULE BY ACTIVE MOUTH ONCE DAILY DEPRESSION/ ANXIETY Active Non-VA Medications Status 1) Non-VA MULTIVITAMIN CAP/TAB 1 TABLET BY MOUTH ONCE ACTIVE DAILY 2) Non-VA OTHER CAP/TAB AREDS EYE VITAMINS BY MOUTH ONCE ACTIVE DAILY 8 Total Medications Remote Medications: Active Medications from Remote Data ARIPIPRAZOLE 20MG TAB Sig: TAKE ONE-HALF TABLET BY MOUTH ONCE A DAY Quantity: 45 Days Supply: 90 Original # of Refills: 2 Rx Expiration: 08/03/23 Last filled 10/01/22 at [facility] (Active) ESCITALOPRAM OXALATE 20MG TAB Sig: TAKE ONE TABLET BY MOUTH ONCE A DAY FOR MAJOR DEPRESSIVE DISORDER. 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 Patient feels it is mild, does not interfere with driving or any function. No headache, visual loss, loss of consciousness, seizure. Review of systems No chest pain or dyspnea No abdominal pain No trouble urinating No fever or chills No cough Physical examination Well-developed well-nourished male no acute distress Coronary no murmur Lungs clear Carotid no bruit No peripheral edema Mucous membranes moist eomi, perrla Assessment and plan: 1. Memory loss: Mild may be related to age. Plan: Full metabolic screen Ultrasound carotid arteries Neuropsychology testing 2. Pulmonary nodules: History of tobacco use. Plan: CT chest lung cancers evaluation Follow-up 3 months Medication Reconciliation: Outpatient: Has the patient been taking medications as documented in the EMLR? YES: The patient has been taking medications as documented in the EMLR. Essential Medication List for Review used to complete this medication reconciliation. INCLUDED IN THIS LIST: Alphabetical list of active outpatient prescriptions dispensed from this [place] (local) and dispensed from another [place] or [place] facility (remote) as well as inpatient orders [...] whether with a VA or non-VA provider. Avg Risk Colorectal Cancer Screen: AVERAGE RISK colorectal cancer screening is due based on information available to this clinical reminder Prior/outside colonoscopy results: 3 polyps removed Date: August 04, 2022 Colonoscopy reminder set 2 years from JUNE 20, 2023. /es/ Nitish Asencio MD Staff Physician Signed: 06/20/2023 09:39 NITISH ASENCIO [place] [facility] [place] [facility] June 20, 2023 09:06 AM PREVENTIVE MEDICIN E NURSING NOTE: LOCAL TITLE: CLINICAL REMINDERS/NURSING STANDARD TITLE: PREVENTIVE MEDICINE NURSING NOTE DATE OF NOTE: JUNE 20, 2023@09:06 ENTRY DATE: JUNE 20, 2023@09:06:41 AUTHOR: BRITTNI MORRISSEY EXP COSIGNER: URGENCY: STATUS: COMPLETED CLINICAL REMINDERS/NURSING Has ADDENDA Advance Directive Screen MH AD: Patient has an up-to-date Advance Directive at an outside, non-va facility and was asked to forward a copy to his/her clinician. Info Only: [facility] Video Connect Capable: /jenny MORRISSEY LPN LPN Signed: 06/20/2023 09:10 06/20/2023 ADDENDUM STATUS: COMPLETED COVID-19 Immunization: Moderna Monovalent (Spikevax) Administered: COVID-19 (MODERNA), MRNA, LNP-S, PF, 50 MCG/0.5 ML (AGES 12+ YEARS) Date Administered: June 20, 2023 09:00 Series: Series 5 Facility Technician: MODERNA [employer] Lot: [id number] Exp Date: Jul 22, 2023 [facility]: [phone] Admin Route/Site: INTRAMUSCULAR/RIGHT DELTOID Dosage: 0.5mL Vaccine Information Statement(s): COVID-19 MRNA VACCINE (12+ YRS) VACCINE VIS Dec 01, 2022 ([facility]ARO[facility]) Order By: Policy Administered By: Brittni Morrissey Vaccine administered without complications. The patient was advised to remain in the facility for 15 minutes post vaccination. /jenny MORRISSEY LPN LPN Signed: 06/20/2023 11:09 BRITTNI MORRISSEY [place] [facility] [place] [facility]
--- OUTSIDE RECORDS SUMMARY | 2024-02-15 17:24 | XMS_ITS | Encounter Summary ---
Author Name [facility] [place] Organization [facility] Address [address] [place] [address] Care Team Providers Care Transmission Repairer Name Role Phone ROSELYN PEREZ Primary Care [...] TRICA RE [id number] NOEMI BREEN ERT PATIENT MEDICARE (WNR) MEDICARE (M) PART A Feb 13, 2019 PART A [id number] NOEMI BREEN ERT PATIENT MEDICARE (WNR) MEDICARE (M) PART B Feb 13, 2019 PART B [id number] NOEMI BREEN ERT PATIENT MEDICARE (WNR) MEDICARE (M) PART A Feb 13, 2019 PART A [id number] [phone] NOEMI BREEN ERT PATIENT MEDICARE (WNR) MEDICARE (M) PART B Feb 13, 2019 PART B [id number] NOEMI BREEN ERT PATIENT MEDICARE (WNR) MEDICARE (M) PART A Feb 13, 2019 PART A [id number] [phone] NOEMI BREEN ERT PATIENT MEDICARE (WNR) MEDICARE (M) PART B Feb 13, 2019 PART B [id number] [phone] NOEMI BREEN ERT PATIENT FOR LIFE TFL* Feb 13, 2019 [id number] NOEMI BREEN ERT PATIENT FOR LIFE SUPPLEMEN SHAI TFL Feb 13, 2019 [facility] [id number] NOEMI BREEN ERT PATIENT -FO R-LIFE DIREC T CARE Oct 05, 2022 [facility] [id number] 90 NOEMI BREEN ERT PATIENT Selected Encounter This section includes the information on record at [place] for the Encounter. Date/Time Encounter Type Encounter Description Reason Pro vider Source Apr 04, 2023 12:00 PM Outpatient Encounter COMMUNITY CARE CONSULT IHE Encounter Template Text not used by [place] Plan of Treatment: Future Appointments (+ 6 months) and Future Tests (+/- 45 days) The Plan of Treatment section includes future care activities for the patient from all [place] treatmentfacilities. This section includes future appointments and future orders which are active, pending or scheduled. Future Appointments This section includes appointments that were scheduled to occur 6 months from the date of the Encounter, up to a maximum of 20 appointments. The data comes from all [place] treatment facilities. Appointment Date/Time Appointment Type Appointme nt Facility Name Apr 28, 2023 10:30 AM AMBULATORY - [place]ATRY [place] [facility] [place] [facility] May 05, 2023 02:45 PM AMBULATORY - MEDICINE [place] [facility] [place] [facility] May 18, 2023 08:00 AM AMBULATORY - REHAB [place]ICIN [place] [facility] [place] [facility] June 20, 2023 09:00 AM AMBULATORY - MEDICINE [place] [facility] [place] [facility] Jul 26, 2023 10:30 AM AMBULATORY - NONE [place] [facility] [place] [facility] Jul 26, 2023 11:00 AM AMBULATORY - [place]RY [place] [facility] [place] [facility] Jul 26, 2023 11:30 AM AMBULATORY - NONE [facility] Aug 08, 2023 08:30 AM [facility] Aug 22, 2023 11:30 AM AMBULATORY - PSYCHIATRY [facility] Sep 26, 2023 09:00 AM AMBULATORY - MEDICINE [facility] Lab Results: +/- 30 days of the encounter This section includes the Chemistry and Hematology Lab Results on record with [place] for the patient. Radiology Reports and Pathology Reports are provided separately, in subsequent sections. Lab Results This section contains the Chemistry/Hematology Results that were resulted 30 days before or 30 daysafter the date of the Encounter. Date/Time Source Result Type Result - Unit Interpretation Reference Range Comment Apr 28, 2023 11:03 AM [facility] LIPID PANEL, NON FASTING Specimen Type: SERUM No comment entered. Ordering Provider: ROSHAN MESA MD Report Released Date/Time: Apr 28, 2023 10:40 AM Reporting Lab: [facility] [address] [facility] [address] Performing Lab: [facility] [address] [facility] [facility] [address] CHOLESTEROL 183 mg/dL TRIGLYCERIDE 304 mg/dL H 0-150 LDL calculated Reflex to dLDL mg/dL 0-129 CHOL/HDL 4.9 HDL CHOLESTEROL 37 mg/dL L 40-60 LDL DIRECT 110 mg/dL Mar 20, 2023 11:34 AM [facility] COVID-19 FLU/RSV DIAGNOSTIC PANEL Specimen Type: NASOPHARYNX Comment: This test is authorized for emergency use only. False negative results may occur if virus is present at levels below the analytical limit of detection.Neg ative results do not preclude SARS-CoV-2, influenza or RSV infection and should not be used as the sole basis for treatment or other patient management decisions.Cep heid FLUVID: HCPs: https://www.[place].gov/media/ 813515/downlo ad. Patients: https://www.[place].gov/media/ 835366/downlo ad Ordering Provider: ISABELA ASENCIO Report Released Date/Time: Mar 20, 2023 11:31 AM Reporting Lab: [place] [facility] [place] [facility] [address] [facility] [address] Performing Lab: [place] [facility] [place] [facility] [address] [facility] [address] COVID-19 PCR (FLUVID) NEGATIVE NEGATIVE FLU A PCR (FLUVID) NEGATIVE FLU B PCR (FLUVID) NEGATIVE RSV PCR (FLUVID) NEGATIVE Social History: Smoking Status (Most current) and Tobacco Use (All prior to encounter date) This section includes the most current, and the historical, smoking and tobacco- related health factors from the [place] facility where the Encounter took place. Current Smoking Status This section includes the most current smoking, or tobacco-related health factor, from the [place] facility where the Encounter took place. Date/Time Current Smoking Status Comment Facil ity Oct 18, 2022 03:16 PM VA-TOBACCO FORMER USER [place] [facility] [place] [facility] Tobacco Use History This section includes a history of the smoking, or tobacco-related health factors, that were collected on or before the date of the Encounter. The data comes from the [place] facility where the Encounter took place. Date/Time Smoking Status/Tobacco Use Comment F acility Oct 18, 2022 03:16 PM VA-TOBACCO QUIT 15 YRS OR MORE [facility] [place] [facility] Nov 12, 2021 10:30 AM VA-TOBACCO FORMER USER [facility] [place] [facility] Nov 12, 2021 10:30 AM VA-TOBACCO QUIT 5 TO < 15 YRS [facility] [place] [facility] Oct 01, 2020 11:02 AM VA-TOBACCO FORMER USER [facility] [place] [facility] Oct 01, 2020 11:02 AM VA-TOBACCO QUIT 15 YRS OR MORE [facility] [place] [facility] Oct 25, 2019 11:30 AM VA-TOBACCO FORMER USER [facility] [place] [facility] Oct 25, 2019 11:30 AM VA-TOBACCO QUIT 5 TO < 15 YRS [facility] [place] [facility] Sep 07, 2018 09:43 AM VA-TOBACCO FORMER USER [facility] [place] [facility] Sep 07, 2018 09:43 AM VA-TOBACCO QUIT 5 TO < 15 YRS [facility] [place] [facility] Apr 25, 2018 02:08 PM VA-TOBACCO USE DEC [facility] Encounter Notes: All associated encounter notes This section contains the clinical notes associated to the Encounter. Date/Time Encounter Note(s) Provider Source Apr 04, 2023 12:00 PM NONVA CONSULT: LOCAL TITLE: COMMUNITY CARE-CONSULT RESULT NOTE STANDARD TITLE: NONVA CONSULT DATE OF NOTE: APR 04, 2023@12:00 ENTRY DATE: APR 14, 2023@08:57:01 AUTHOR: GENE PERRY EXP COSIGNER: URGENCY: STATUS: COMPLETED VistA Imaging - Scanned Document UROLOGY GROUP OF E-OFFICE NOTES SCANNED DOCUMENT SIGNATURE NOT REQUIRED Electronically Filed: 04/14/2023 by: GENE PERRY FASHION CONSULTANT GENE PERRY [facility]
--- OUTSIDE RECORDS SUMMARY | 2024-02-15 17:24 | XMS_ITS | Encounter Summary ---
Author Name [facility] [place] Organization [facility] Address [address] [place] [address] Care Team Providers Care Casino Accountant Name Role Phone ROSELYN PEREZ Primary Care [...] TR[facility] [id number] NOEMI BREEN ERT PATIENT MEDICARE (WNR) MEDICARE (M) PART A Feb 13, 2019 PART A [id number] NOEMI BREEN ERT PATIENT MEDICARE (WNR) MEDICARE (M) PART B Feb 13, 2019 PART B [id number] [phone] NOEMI BREEN ERT PATIENT MEDICARE (WNR) MEDICARE (M) PART A Feb 13, 2019 PART A [id number] NOEMI BREEN ERT PATIENT MEDICARE (WNR) MEDICARE (M) PART B Feb 13, 2019 PART B [id number] [phone] NOEMI BREEN ERT PATIENT MEDICARE (WNR) MEDICARE (M) PART A Feb 13, 2019 PART A [id number] NOEMI BREEN ERT PATIENT MEDICARE (WNR) MEDICARE (M) PART B Feb 13, 2019 PART B [id number] [phone] NOEMI BREEN ERT PATIENT FOR LIFE TFL* Feb 13, 2019 [id number] NOEMI BREEN ERT PATIENT FOR LIFE SUPPLEMEN SHAI TFL Feb 13, 2019 FOR LIFE [id number] NOEMI BREEN ERT PATIENT -FO R-LIFE DIREC T CARE Oct 05, 2022 [facility] [id number] 90 NOEMI BREEN ERT PATIENT Selected Encounter This section includes the information on record at [place] for the Encounter. Date/Time Encounter Type Encounter Description Reason Pro vider Source Apr 21, 2023 11:13 AM Outpatient Encounter COMMUNITY CARE CONSULT IHE Encounter [...] 2023 10:30 AM AMBULATORY - [place]ATRY [place] [facility] [place] [facility] May 05, 2023 02:45 PM AMBULATORY - MEDICINE [place] [facility] [place] [facility] May 18, 2023 08:00 AM AMBULATORY - REHAB MEDICIN E [place] [facility] [place] [facility] June 20, 2023 09:00 AM AMBULATORY - MEDICINE [place] [facility] [place] [facility] Jul 26, 2023 10:30 AM AMBULATORY - NONE [place] [facility] [place] [facility] Jul 26, 2023 11:00 AM AMBULATORY - PS[place]IATRY [place] [facility] [place] [facility] Jul 26, 2023 11:30 AM [facility] Aug 08, 2023 08:30 AM [facility] Aug 22, 2023 11:30 AM [facility] Sep 26, 2023 09:00 AM [facility] Oct 21, 2023 09:00 AM [facility] Lab Results: +/- 30 days of [...] Range Comment Apr 28, 2023 11:03 AM [facility] LIPID PANEL, NON FASTING Specimen Type: SERUM No comment entered. Ordering Provider: ROSHAN MESA MD Report Released Date/Time: Apr 28, 2023 10:40 AM Reporting Lab: [address] [address] Performing Lab: [address] [address] CHOLESTEROL 183 mg/dL TRIGLYCERIDE 304 mg/dL H 0-150 LDL calculated Reflex to dLDL mg/dL 0-129 CHOL/HDL 4.9 HDL CHOLESTEROL 37 mg/dL L 40-60 LDL DIRECT 110 mg/dL Social History: Smoking Status (Most current) and [...] 18, 2022 03:16 PM VA-TOBACCO FORMER USER [facility] Tobacco Use History This section includes a history of the smoking, or tobacco-related health factors, that were collected on or before the date of the Encounter. The data comes from the [place] facility where the Encounter took place. Date/Time Smoking Status/Tobacco Use Comment F acility Oct 18, 2022 03:16 PM VA-TOBACCO QUIT 15 YRS OR MORE [facility] [place] [facility] Nov 12, 2021 10:30 AM VA-TOBACCO FORMER USER [facility] [place] [facility] Nov 12, 2021 10:30 AM VA-TOBACCO QUIT 5 TO < 15 YRS [facility] [place] [facility] Oct 01, 2020 11:02 AM VA-TOBACCO FORMER USER [facility] [place] [facility] Oct 01, 2020 11:02 AM VA-TOBACCO QUIT 15 YRS OR MORE [facility] [place] [facility] Oct 25, 2019 11:30 AM VA-TOBACCO FORMER USER [facility] [place] [facility] Oct 25, 2019 11:30 AM VA-TOBACCO QUIT 5 TO < 15 YRS [facility] [place] [facility] Sep 07, 2018 09:43 AM VA-TOBACCO FORMER USER [facility] [place] [facility] Sep 07, 2018 09:43 AM VA-TOBACCO QUIT 5 TO < 15 YRS [facility] [place] [facility] Apr 25, 2018 02:08 PM VA-TOBACCO USE DEC LINED TO ANSWER [facility] [place] [facility] Encounter Notes: All associated encounter notes This section contains the clinical notes associated to the Encounter. Date/Time Encounter Note(s) Provider Source Apr 21, 2023 11:13 AM ADMINISTRATIVE NOTE: LOCAL TITLE: ADMINISTRATIVE NOTE STANDARD TITLE: ADMINISTRATIVE NOTE DATE OF NOTE: APR 21, 2023@11:13 ENTRY DATE: APR 21, 2023@11:13:40 AUTHOR: MAIK DUMONT EXP COSIGNER: URGENCY: STATUS: COMPLETED ADMINISTRATIVE NOTE Has ADDENDA RECEIVED FAX FROM [facility] REFERRING HIM TO [facility] FOR [facility]NAL FUNCTION IF PCP AGREES PLEASE ENTER NEW CONSULT FOR NEPHROLOGY [facility] [address] [place] [phone] NPI--[id number] /ta/ MAIK BROWN Signed: 04/21/2023 11:14 Receipt Acknowledged By: 04/21/2023 16:05 /es/ Glenny Ghosh RN, BSN Primary Care Nurse Air And Water Filler for VIVIANE FARIAS 04/21/2023 16:34 /ta/ Isabela Schuster MD Staff Physician 04/21/2023 ADDENDUM STATUS: COMPLETED Done. /ta/ Isabela Schuster MD Staff Physician Signed: 04/21/2023 16:34 MAIK DUMONT [facility]
--- OUTSIDE RECORDS SUMMARY | 2024-02-15 17:24 | XMS_ITS | Encounter Summary ---
Author Name [facility] Organization [facility] [place] Address [address] [place] [address] Care Team Providers Care Software Consultant Name Role Phone ROSELYN PEREZ Primary Care [...] Oct 05, 2022 [facility] [id number] NOEMI BREEN ERT PATIENT MEDICARE (WNR) MEDICARE (M) PART A Feb 13, 2019 PART A [id number] NOEMI BREEN ERT PATIENT MEDICARE (WNR) MEDICARE (M) PART B Feb 13, 2019 PART B [id number] NOEMI BREEN ERT PATIENT MEDICARE (WNR) MEDICARE (M) PART A Feb 13, 2019 PART A [id number] NOEMI BREEN ERT PATIENT MEDICARE (WNR) MEDICARE (M) PART B Feb 13, 2019 PART B [id number] NOEMI BREEN ERT PATIENT MEDICARE (WNR) MEDICARE (M) PART A Feb 13, 2019 PART A [id number] [phone] NOEMI BREEN ERT PATIENT MEDICARE (WNR) MEDICARE (M) PART B Feb 13, 2019 PART B [id number] NOEMI BREEN ERT PATIENT FOR LIFE TFL* Feb 13, 2019 [id number] [phone] NOEMI BREEN ERT PATIENT FOR LIFE SUPPLEMEN SHAI TFL Feb 13, 2019 [facility] [id number] 90 NOEMI BREEN ERT PATIENT -FO R-LIFE DIREC T CARE Oct 05, 2022 [facility] [id number] 90 NOEMI BREEN ERT PATIENT Selected Encounter This section includes the information on record at [place] for the Encounter. Date/Time Encounter Type Encounter Description Reason Pro vider Source June 20, 2023 12:00 AM Outpatient Encounter EVENT (HISTORICAL) IHE Encounter Template Text not used by [place] Plan of Treatment: Future Appointments (+ 6 months) and Future Tests (+/- 45 days) The Plan of Treatment section includes future care activities for the patient from all [place] treatmentfacilities. This section includes future appointments and future orders which are active, pending or scheduled. Future Appointments This section includes appointments that were scheduled to occur 6 months from the date of the Encounter, up to a maximum of 20 appointments. The data comes from all [place] treatment facilities. Appointment Date/Time Appointment Type Appointme nt Facility Name Jul 26, 2023 10:30 AM AMBULATORY - NONE [facility] [place] [facility] Jul 26, 2023 11:00 AM AMBULATORY - PSYCHIATRY [place] [facility] [place] [facility] Jul 26, 2023 11:30 AM AMBULATORY - NONE [facility] [place] [facility] Aug 08, 2023 08:30 AM AMBULATORY - PSYCHIATRY [facility] [place] [facility] Aug 22, 2023 11:30 AM AMBULATORY - PSYCHIATRY [facility] [place] [facility] Sep 26, 2023 09:00 AM AMBULATORY - MEDICINE [place] [facility] [place] [facility] Oct 21, 2023 09:00 AM AMBULATORY - MEDICINE [facility] [place] [facility] Oct 25, 2023 10:00 AM AMBULATORY - NONE [facility] [place] [facility] Nov 09, 2023 09:30 AM AMBULATORY - PSYCHIATRY [facility] [place] [facility] Nov 09, 2023 11:20 AM AMBULATORY - MEDICINE [facility] [place] [facility] Nov 23, 2023 03:30 PM AMBULATORY - MEDICINE [facility] [place] [facility] Dec 20, 2023 02:30 PM AMBULATORY - MEDICINE [place] [facility] [place] [facility] Active, Pending, and Scheduled Orders This section includes a listing of several types of active, pending, and scheduled orders, including clinic medications orders, diagnostic test orders, procedure orders and consult orders; where the start date of the order is 45 days before the date of the Encounter or 45 days after the date of theEncounter. The data comes from all [place] treatment facilities. Test Date/Time Test Type Test Details Facility Name June 20, 2023 12:00 AM Laboratory - Chemistry Order BASIC METABOLIC PANEL (fasting) BLOOD (SST-SERUM) [facility] [place] [facility] June 20, 2023 12:00 AM Laboratory - Chemistry Order CBC AND DIFF (AUTO) BLOOD (LAV-BLOOD) [facility] [place] [facility] June 20, 2023 12:00 AM Laboratory - Chemistry Order LIVER FUNCTION BLOOD (SST-SERUM) [facility] [place] [facility] June 20, 2023 12:00 AM Laboratory - Chemistry Order LIPID PANEL FASTING BLOOD (SST-SERUM) [facility] [place] [facility] June 20, 2023 12:00 AM Laboratory - Chemistry Order TSH BLOOD (SST-SERUM) [facility] [place] [facility] June 20, 2023 12:00 AM Laboratory - Chemistry Order PSA BLOOD (SST-SERUM) [facility] [place] [facility] June 20, 2023 12:00 AM Laboratory - Chemistry Order URINALYSIS CLEAN CATCH URINE [facility] [place] [facility] June 20, 2023 12:00 AM Laboratory - Chemistry Order CALCIUM BLOOD (SST-SERUM) [facility] [place] [facility] June 20, 2023 12:00 AM Laboratory - Chemistry Order VITAMIN B12 BLOOD (SST-SERUM) [facility] [place] [facility] June 20, 2023 12:00 AM Laboratory - Chemistry Order FOLATE (WROX) BLOOD (SST-SERUM) [facility] [place] [facility] Vital Signs: All taken on the encounter date This section contains inpatient and outpatient Vital Signs collected on the date of the Encounter. Date/Time Temperature Pulse Blood Pressure Respiratory Rate SP02 Pain Height Weight Body Mass Index Source June 20, 2023 09:30 AM 134/64 [facility] [place] [facility] June 20, 2023 09:03 AM 98.6 77 142/82 16 93 0 70 257.3 37 [place] [facility] [place] [facility] Social History: Smoking Status (Most current) and Tobacco Use (All prior to encounter date) This section includes the most current, and the historical, smoking and tobacco- related health factors from the [place] facility where the Encounter took place. Current Smoking Status This section includes the most current smoking, or tobacco-related health factor, from the [place] facility where the Encounter took place. Date/Time Current Smoking Status Comment Facil ity Oct 18, 2022 03:16 PM VA-TOBACCO FORMER USER [place] [facility] [place] [facility] Tobacco Use History This section includes a history of the smoking, or tobacco-related health factors, that were collected on or before the date of the Encounter. The data comes from the [place] facility where the Encounter took place. Date/Time Smoking Status/Tobacco Use Comment F acility Oct 18, 2022 03:16 PM VA-TOBACCO QUIT 15 YRS OR MORE [facility] [place] [facility] Nov 12, 2021 10:30 AM VA-TOBACCO FORMER USER [facility] [place] [facility] Nov 12, 2021 10:30 AM VA-TOBACCO QUIT 5 TO < 15 YRS [facility] [place] [facility] Oct 01, 2020 11:02 AM VA-TOBACCO FORMER USER [facility] [place] [facility] Oct 01, 2020 11:02 AM VA-TOBACCO QUIT 15 YRS OR MORE [facility] [place] [facility] Oct 25, 2019 11:30 AM VA-TOBACCO FORMER USER [facility] [place] [facility] Oct 25, 2019 11:30 AM VA-TOBACCO QUIT 5 TO < 15 YRS [facility] [place] [facility] Sep 07, 2018 09:43 AM VA-TOBACCO FORMER USER [facility] [place] [facility] Sep 07, 2018 09:43 AM VA-TOBACCO QUIT 5 TO < 15 YRS [facility] [place] [facility] Apr 25, 2018 02:08 PM VA-TOBACCO USE DEC LINED TO ANSWER [facility] [place] [facility]
--- OUTSIDE RECORDS SUMMARY | 2024-02-15 17:24 | XMS_ITS | Encounter Summary ---
Author Name [facility] [place] Organization [facility] [place] Address [address] [place] [address] Care Team Providers Care Kennel Aide Name Role Phone ROSELYN PEREZ Primary Care Provider ISABELA Ramirez Primary Care Provider Unavailkashmir salas Insurance [...] TRICA RE DODA WNR Oct 05, 2022 [facility] [id number] NOEMI BREEN ERT PATIENT MEDICARE (WNR) MEDICARE (M) PART A Feb 13, 2019 PART A [id number] NOEMI BREEN ERT PATIENT MEDICARE (WNR) MEDICARE (M) PART B Feb 13, 2019 PART B [id number] NOEMI BREEN ERT PATIENT MEDICARE (WNR) MEDICARE (M) PART A Feb 13, 2019 PART A [id number] NOEMI BREEN ERT PATIENT MEDICARE (WNR) MEDICARE (M) PART B Feb 13, 2019 PART B [id number] NOEMI BREEN ERT PATIENT MEDICARE (WNR) MEDICARE (M) PART A Feb 13, 2019 PART A [id number] NOEMI BREEN ERT PATIENT MEDICARE (WNR) MEDICARE (M) PART B Feb 13, 2019 PART B [id number] NOEMI BREEN ERT PATIENT FOR LIFE TFL* Feb 13, 2019 [id number] NOEMI BREEN ERT PATIENT FOR LIFE SUPPLEMEN SHAI TFL Feb 13, 2019 [facility] [id number] NOEMI BREEN ERT PATIENT -FO R-LIFE DIREC T CARE Oct 05, 2022 [facility] [id number] 90 NOEMI BREEN ERT PATIENT Selected Encounter This section includes the information on record at [place] for the Encounter. Date/Time Encounter Type Encounter Description Reason Provider Source Apr 28, 2023 10:30 AM OFFICE O/P EST LOW 20 [facility] - IND ICD-10-CM F41.9 Anxiety disorder, unspecified CARSON HOPKINS MD I[facility] Encounter Template Text not used by [place] Assessments - Encounter Diagnoses This section includes the primary and secondary diagnoses documented for the Encounter. Date/Time Primary/Secondary Diagnosis Diagnosis Name Provider Source Apr 28, 2023 10:43 AM PRIMARY Anxiety disorder, unspecified CARSON HOPKINS MD [facility] Plan of Treatment: Future Appointments (+ 6 months) and Future Tests (+/- 45 days) The Plan of Treatment section includes future care activities for the patient from all [place] treatmentfacilities. This section includes future appointments and future orders which are active, pending or scheduled. Future Appointments This section includes appointments that were scheduled to occur 6 months from the date of the Encounter, up to a maximum of 20 appointments. The data comes from all [place] treatment facilities. Appointment Date/Time Appointment Type Appointme nt Facility Name May 05, 2023 02:45 PM [facility] May 18, 2023 08:00 AM [facility] June 20, 2023 09:00 AM [facility]ICINE [facility] [place] [facility] Jul 26, 2023 10:30 AM AMBULATORY - NONE [facility] [place] [facility] Jul 26, 2023 11:00 AM AMBULATORY - PSYCHIATRY [facility] [place] [facility] Jul 26, 2023 11:30 AM AMBULATORY - NONE [facility] [place] [facility] Aug 08, 2023 08:30 AM AMBULATORY - PSYCHIATRY [facility] [place] [facility] Aug 22, 2023 11:30 AM AMBULATORY - PSYCHIATRY [facility] [place] [facility] Sep 26, 2023 09:00 AM AMBULATORY - MEDICINE [facility] [place] [facility] Oct 21, 2023 09:00 AM AMBULATORY - MEDICINE [place] [facility] [facility] Oct 25, 2023 10:00 AM [facility] N[facility] Lab Results: +/- 30 days of the encounter This section includes the Chemistry and Hematology Lab Results on record with [place] for the patient. Radiology Reports and Pathology Reports are provided separately, in subsequent sections. Lab Results This section contains the Chemistry/Hematology Results that were resulted 30 days before or 30 daysafter the date of the Encounter. Date/Time Source Result Type Result - Unit Interpretation Reference Range Comment Apr 28, 2023 11:03 AM [facility] LIPID PANEL, NON FASTING Specimen Type: SERUM No comment entered. Ordering Provider: ROSHAN HOPKINS MD Report Released Date/Time: Apr 28, 2023 10:40 AM Reporting Lab: [facility] [address] [facility] [id number] Performing Lab: [facility] [address] [id number] CHOLESTEROL 183 mg/dL TRIGLYCERIDE 304 mg/dL H 0-150 LDL calculated Reflex to dLDL mg/dL 0-129 CHOL/HDL 4.9 HDL CHOLESTEROL 37 mg/dL L 40-60 LDL DIRECT 110 mg/dL Social History: Smoking Status (Most current) and Tobacco Use (All prior to encounter date) This section includes the most current, and the historical, smoking and tobacco- related health factors from the [place] facility where the Encounter took place. Current Smoking Status This section includes the most current smoking, or tobacco-related health factor, from the [place] facility where the Encounter took place. Date/Time Current Smoking Status Comment Randal hyde Oct 18, 2022 03:16 PM VA-TOBACCO FORMER USER [place] [facility] [place] [facility] Tobacco Use History This section includes a history of the smoking, or tobacco-related health factors, that were collected on or before the date of the Encounter. The data comes from the [place] facility where the Encounter took place. Date/Time Smoking Status/Tobacco Use Comment Breezy allen Oct 18, 2022 03:16 PM VA-TOBACCO QUIT 15 YRS OR MORE [facility] [place] [facility] Nov 12, 2021 10:30 AM VA-TOBACCO FORMER USER [facility] [place] [facility] Nov 12, 2021 10:30 AM VA-TOBACCO QUIT 5 TO < 15 YRS [facility] [place] [facility] Oct 01, 2020 11:02 AM VA-TOBACCO FORMER USER [facility] [place] [facility] Oct 01, 2020 11:02 AM VA-TOBACCO QUIT 15 YRS OR MORE [facility] [place] [facility] Oct 25, 2019 11:30 AM VA-TOBACCO FORMER USER [facility] [place] [facility] Oct 25, 2019 11:30 AM VA-TOBACCO QUIT 5 TO < 15 YRS [facility] [place] [facility] Sep 07, 2018 09:43 AM VA-TOBACCO FORMER USER [facility] [place] [facility] Sep 07, 2018 09:43 AM VA-TOBACCO QUIT 5 TO < 15 YRS [facility] [place] [facility] Apr 25, 2018 02:08 PM VA-TOBACCO USE DEC LINED TO ANSWER [facility] [place] [facility] Encounter Notes: All associated encounter notes This section contains the clinical notes associated to the Encounter. Date/Time Encounter Note(s) Provider Source Apr 28, 2023 01:19 PM LETTERS: LOCAL TITLE: MENTAL HEALTH DIAGNOSTIC RESULTS LETTER STANDARD TITLE: LETTERS DATE OF NOTE: APR 28, 2023@13:19 ENTRY DATE: APR 28, 2023@13:19:26 AUTHOR: JAKUB HOPKINS EXP COSIGNER: URGENCY: STATUS: COMPLETED NAINA BREEN [address], [place] [address] APR 28, 2023 Dear Mr. NAINA BREEN, Here are the Lab Results I have received from the last Urine Drug screen done on 04/28/23 so you can have a copy of them for your records: LAB CHEMISTRY & HEMATOLOGY Collection DT Specimen Test Name Result Units Ref Range 04/28/2023 11:03 SERUM LDL DIRECT 110 mg/dL <10 - 120 CHOLESTEROL 183 mg/dL <7 - 199 TRIGLYCERIDE 304 H mg/dL 0 - 150 LDL calculated Reflex to dLDL mg/dL 0 - 129 CHOL/HDL 4.9 HDL CHOLESTEROL 37 L mg/dL 40 - 60 Lipid Profile Collection DT Specimen Test Name Result Units Ref Range 04/28/2023 11:03 SERUM CHOLESTEROL 183 mg/dL <7 - 199 04/28/2023 11:03 SERUM TRIGLYCERIDE 304 H mg/dL 0 - 150 04/28/2023 11:03 SERUM HDL CHOLESTEROL 37 L mg/dL 40 - 60 04/28/2023 11:03 SERUM LDL calculated Reflex to dLDL mg/dL 0 - 129 04/28/2023 11:03 SERUM CHOL/HDL 4.9 --------- Sincerely, Jakub Hopkins Jr., MD [facility] JAKUB HOPKINS MD [place] [facility] [place] [facility] Apr 28, 2023 08:45 AM PSYCHIATRY NOTE: LOCAL TITLE: PSYCHIATRY/FOLLOW-UP NOTE STANDARD TITLE: PSYCHIATRY NOTE DATE OF NOTE: APR 28, 2023@08:45 ENTRY DATE: APR 28, 2023@08:45:29 AUTHOR: JAKUB HOPKINS EXP COSIGNER: URGENCY: STATUS: COMPLETED SUBJECT: Medication Change Medications were reconciled with and he was offered and declines a copy of his medication list. Active Outpatient Medications: 1) AMLODIPINE BESYLATE 10MG TAB TAKE ONE TABLET BY MOUTH ONCE DAILY FOR BLOOD PRESSURE/HEART, DO NOT TAKE WITH GRAPEFRUIT JUICE 2) ARIPIPRAZOLE 10MG TAB TAKE ONE TABLET BY MOUTH ONCE DAILY 3) ATORVASTATIN CALCIUM 80MG TAB TAKE ONE-HALF TABLET BY MOUTH AT BEDTIME 4) DICLOFENAC NA 1% TOP GEL APPLY 2 GRAMS TOPICALLY THREE TIMES DAILY NEEDED DIRECTED FOR LEFT SHOULDER PAIN - USE DOSING CARD PROVIDED IN BOX 5) LOSARTAN 25MG TAB TAKE ONE TABLET BY MOUTH ONCE DAILY FOR BLOOD PRESSURE/HEART 6) VENLAFAXINE HCL 75MG 24HR SA CAP TAKE ONE CAPSULE BY MOUTH ONCE DAILY 1) Non-VA MULTIVITAMIN CAP/TAB 1 TABLET BY MOUTH ONCE DAILY 2) Non-VA OTHER CAP/TAB AREDS EYE VITAMINS BY MOUTH ONCE DAILY NAINA BREEN is a [place], 67 yo, male who was [facility] for 20 minutes for medication management. Two identifiers were used. CC: Good. I haven't even a fog of anything. No panic attacks in a year. Souleymane has been taking a memory pill (OTC) for a year as reports souleymane has had episodes where he couldn't remember things briefly and more frequently lately. Souleymane has an appointment with PCP in June and will discuss with PCP about getting an evaluation for dementia. He is doing well on current medications. He returned to [place] and bought a house to be near his son. Some alcohol, I drink wine once in a while and I smoke marijuana. Sleep is good, I get about 8 hours of sleep and appetite is, too good . No adverse side effects from current medications were reported. Mood is stable. Souleymane has been on abilify for quite a while and he is stable on it. Discussed continuation of present medications as above. Patient education given including not taking anyone else's medications or giving his medications to anyone else and to protect his medications from theft and children. Souleymane is agreeable. MSE: NAINA BREEN is an obese, balding, 67 yo, male who is casually dressed wearing jeans, a flannel shirt, a hooded sweatshirt, a long mora and glasses. He is alert, oriented, pleasant and cooperative with good contact during interview. Speech is goal directed with normal kinetics. Mood is euthymic and affect is full and appropriate to thought content. Memory appears to be intact. No suicidal or homicidal ideations. No hallucinations or delusions were elicited. Good general fund of knowledge. Insight and judgement is good. Assessment: Anxiety Disorder Plan: Continue present medications as above. Encouraged souleymane to take medications as prescribed. Labs pending. RTC in 2-3 months or earlier if needed. MH AIMS Testing: AIMS (Mental Health Instrument) The patient was evaluated for symptoms of tardive dyskinesia using the AIMS. Total score for items 1-7: 1 /es/ JAKUB HOPKINS JR, MD STAFF PSYCHIATRIST Signed: 04/28/2023 10:43 JAKUB HOPKINS MD [place] [facility]
--- OUTSIDE RECORDS SUMMARY | 2024-02-15 17:24 | XMS_ITS | Encounter Summary ---
Author Name [facility] ([place] Address [address] [place] [address] Care Team Providers Care Bobbin Cleaner Hand Name Role Phone ROSELYN PEREZ Primary Care [...] [id number] NOEMI BREEN ERT PATIENT MEDICARE (WNR) MEDICARE (M) PART A Feb 13, 2019 PART A [id number] NOEMI BREEN ERT PATIENT MEDICARE (WNR) MEDICARE (M) PART B Feb 13, 2019 PART B [id number] NOEMI BREEN ERT PATIENT MEDICARE (WNR) MEDICARE (M) PART A Feb 13, 2019 PART A [id number] NOEMI BREEN ERT PATIENT MEDICARE (WNR) MEDICARE (M) PART B Feb 13, 2019 PART B [id number] NOEMI BREEN ERT PATIENT MEDICARE (WNR) MEDICARE (M) PART A Feb 13, 2019 PART A [id number] [phone] NOEMI BREEN ERT PATIENT MEDICARE (WNR) MEDICARE (M) PART B Feb 13, 2019 PART B [id number] [phone] NOEMI BREEN ERT PATIENT FOR LIFE TFL* Feb 13, 2019 [id number] NOEMI BREEN ERT PATIENT FOR LIFE SUPPLEMEN SHAI TFL Feb 13, 2019 [facility] [id number] 90 NOEMI BREEN ERT PATIENT -FO R-LIFE DIREC T CARE Oct 05, 2022 [facility] [id number] [phone] NOEMI BREEN ERT PATIENT Selected Encounter This section includes the information on record at [place] for the Encounter. Date/Time Encounter Type Encounter Description Reason Pro vider Source May 18, 2023 08:03 AM Outpatient Encounter GENERAL INTERNAL MEDICINE IHE Encounter Template Text not used by [place] Plan of Treatment: Future Appointments (+ 6 months) and Future Tests (+/- 45 days) The Plan of Treatment section includes future care activities for the patient from all [place] treatmentfacilities. This section includes future appointments and future orders which are active, pending or scheduled. Future Appointments This section includes appointments that were scheduled to occur 6 months from the date of the Encounter, up to a maximum of 20 appointments. The data comes from all [place] treatment facilities. Appointment Date/Time Appointment Type Appointme nt Facility Name June 20, 2023 09:00 AM AMBULATORY - MEDICINE [place] [facility] [place] [facility] Jul 26, 2023 10:30 AM AMBULATORY - NONE [facility] [place] [facility] Jul 26, 2023 11:00 AM AMBULATORY - PSYCHIATRY [place] [facility] [place] [facility] Jul 26, 2023 11:30 AM AMBULATORY - NONE [facility] [place] [facility] Aug 08, 2023 08:30 AM AMBULATORY - PSYCHIATRY [place] [facility] [place] [facility] Aug 22, 2023 11:30 AM AMBULATORY - PSYCHIATRY [place] [facility] [place] [facility] Sep 26, 2023 09:00 AM AMBULATORY - MEDICINE [place] [facility] [place] [facility] Oct 21, 2023 09:00 AM [facility] Oct 25, 2023 10:00 AM [facility]ONE [place] [facility] Nov 09, 2023 09:30 AM [facility] [place] [facility] [place] [facility] Nov 09, 2023 11:20 AM AMBULATORY - MEDICINE [facility] Active, Pending, and Scheduled Orders This section includes a listing of several types of active, pending, and scheduled orders, including clinic medications orders, diagnostic test orders, procedure orders and consult orders; where the start date of the order is 45 days before the date of the Encounter or 45 days after the date of theEncounter. The data comes from all [place] treatment facilities. Test Date/Time Test Type Test Details Facility Name June 20, 2023 12:00 AM Laboratory - Chemistry Order CBC AND DIFF (AUTO) BLOOD (LAV-BLOOD) [facility] [place] [facility] June 20, 2023 12:00 AM Laboratory - Chemistry Order BASIC METABOLIC PANEL (fasting) BLOOD (SST-SERUM) [facility] June 20, 2023 12:00 AM Laboratory - Chemistry Order TSH BLOOD (SST-SERUM) [facility] June 20, 2023 12:00 AM Laboratory - Chemistry Order LIVER FUNCTION BLOOD (SST-SERUM) [facility] June 20, 2023 12:00 AM Laboratory - Chemistry Order PSA BLOOD (SST-SERUM) [facility] June 20, 2023 12:00 AM Laboratory - Chemistry Order LIPID PANEL FASTING BLOOD (SST-SERUM) [facility] [place] [facility] June 20, 2023 12:00 AM Laboratory - Chemistry Order URINALYSIS CLEAN CATCH URINE [facility] June 20, 2023 12:00 AM Laboratory - Chemistry Order CALCIUM BLOOD (SST-SERUM) [facility] June 20, 2023 12:00 AM Laboratory - Chemistry Order VITAMIN B12 BLOOD (SST-SERUM) [facility] June 20, 2023 12:00 AM Laboratory - Chemistry Order FOLATE (WROX) BLOOD (SST-SERUM) SP [facility] Lab Results: +/- 30 days of the encounter This section includes the Chemistry and Hematology Lab Results on record with [place] for the patient. Radiology Reports and Pathology Reports are provided separately, in subsequent sections. Lab Results This section contains the Chemistry/Hematology Results that were resulted 30 days before or 30 daysafter the date of the Encounter. Date/Time Source Result Type Result - Unit Interpretation Reference Range Comment Apr 28, 2023 11:03 AM [facility] LIPID PANEL, NON FASTING Specimen Type: SERUM No comment entered. Ordering Provider: ROSHAN MESA MD Report Released Date/Time: Apr 28, 2023 10:40 AM Reporting Lab: [address] [id number] Performing Lab: [address] [address] CHOLESTEROL 183 mg/dL TRIGLYCERIDE 304 mg/dL H 0-150 LDL calculated Reflex to dLDL mg/dL 0-129 CHOL/HDL 4.9 HDL CHOLESTEROL 37 mg/dL L 40-60 LDL DIRECT 110 mg/dL Vital Signs: All taken on the encounter date This section contains inpatient and outpatient Vital Signs collected on the date of the Encounter. Date/Time Temperature Pulse Blood Pressure Respiratory Rate SP02 Pain Height Weight Body Mass Index Source May 18, 2023 08:02 AM 156/90 [facility] May 18, 2023 08:01 AM 80 156/90 20 94 0 263 38 [facility] Social History: Smoking Status (Most current) and Tobacco Use (All prior to encounter date) This section includes the most current, and the historical, smoking and tobacco- related health factors from the [place] facility where the Encounter took place. Current Smoking Status This section includes the most current smoking, or tobacco-related health factor, from the [place] facility where the Encounter took place. Date/Time Current Smoking Status Comment Randal hyde Oct 18, 2022 03:16 PM VA-TOBACCO FORMER USER [facility] Tobacco Use History This section includes a history of the smoking, or tobacco-related health factors, that were collected on or before the date of the Encounter. The data comes from the [place] facility where the Encounter took place. Date/Time [...] USER [facility] [place] [facility] Oct 01, 2020 11:02 AM VA-TOBACCO QUIT 15 YRS OR MORE [facility] [place] [facility] Oct 25, 2019 11:30 AM VA-TOBACCO FORMER USER [facility] [place] [facility] Oct 25, 2019 11:30 AM VA-TOBACCO QUIT 5 TO < 15 YRS [facility] [place] [place] [facility] Sep 07, 2018 09:43 AM VA-TOBACCO FORMER USER [place] [facility] [place] [facility] Sep 07, 2018 09:43 AM VA-TOBACCO QUIT 5 TO < 15 YRS [place] [facility] [place] [facility] Apr 25, 2018 02:08 PM VA-TOBACCO USE DEC LINED TO ANSWER [place] [facility] [place] [facility] Encounter Notes: All associated encounter notes This section contains the clinical notes associated to the Encounter. Date/Time Encounter Note(s) Provider Source May 18, 2023 08:03 AM NURSING OUTPATIENT NOTE: LOCAL TITLE: NURSING/SPECIALTY CLINIC NOTE STANDARD TITLE: NURSING OUTPATIENT NOTE DATE OF NOTE: MAY 18, 2023@08:03 ENTRY DATE: MAY 18, 2023@08:03:55 AUTHOR: ZULEIKA PEACOCK EXP COSIGNER: URGENCY: STATUS: COMPLETED NAINA BREEN into Medical Rehabilitation this date. B/P 156/90 (05/18/2023 08:02) Left arm, sitting, pulse 80 (05/18/2023 08:01). Blood pressure re-check end of visit 156/90 left arm, sitting, manually taken level of heart. Medications taken as prescribed. Denies chest pain/SOB. agreeable and cooperative. Will alert PCP and urgent care. /ta/ Zuleika Peacock LPN LPN Signed: 05/18/2023 08:44 Receipt Acknowledged By: 05/18/2023 10:11 /ta/ Nitish Schuster MD Staff Physician 05/18/2023 09:08 /ta/ Dixie Pepe RN, BSN Primary Care ZULEIKA PEACOCK [facility]
--- OUTSIDE RECORDS SUMMARY | 2024-02-15 17:24 | XMS_ITS | Encounter Summary ---
Author Name [facility] [place] Organization [facility] [place] Address [address] [place] [address] Care Team Providers Care Consulting Psychologist Name Role Phone ROSELYN PEREZ Primary Care Provider ISABELA Ramierz Primary Care Provider Unavailkashmir salas Insurance Providers: [...] WNR Oct 05, 2022 [facility] [id number] NOEMI BREEN ERT PATIENT MEDICARE (WNR) MEDICARE (M) PART A Feb 13, 2019 PART A [id number] HUNTERNOEMI SMALLWOOD ERT PATIENT MEDICARE (WNR) MEDICARE (M) PART B Feb 13, 2019 PART B [id number] NOEMI BREEN ERT PATIENT MEDICARE (WNR) MEDICARE (M) PART A Feb 13, 2019 PART A [id number] [phone] NOEMI BREEN ERT PATIENT MEDICARE (WNR) MEDICARE (M) PART B Feb 13, 2019 PART B [id number] [phone] NOEMI BREEN ERT PATIENT MEDICARE (WNR) MEDICARE (M) PART A Feb 13, 2019 PART A [id number] NOEMI BREEN ERT PATIENT MEDICARE (WNR) MEDICARE (M) PART B Feb 13, 2019 PART B [id number] [phone] NOEMI BREEN ERT PATIENT FOR LIFE TFL* Feb 13, 2019 [id number] NOEMI BREEN ERT PATIENT FOR LIFE SUPPLEMEN SHAI TFL Feb 13, 2019 [facility] LIFE [id number] NOEMI BREEN ERT PATIENT -FO R-LIFE DIREC T CARE Oct 05, 2022 FOR LIFE [id number] NOEMI BREEN ERT PATIENT Selected Encounter This section includes the information on record at CT for the Encounter. Date/Time Encounter Type Encounter Description Reason Provider Source May 18, 2023 08:00 AM OFFICE O/P NEW MOD 45 MIN PM&RS PHYSICIAN ICD-10-CM M19.012 Primary osteoarthritis , left shoulder WILFRID ROME [facility] Encounter Template Text not used by CT Assessments - Encounter Diagnoses This section includes the primary and secondary diagnoses documented for the Encounter. Date/Time Primary/Secondary Diagnosis Diagnosis Name Provider Source June 24, 2023 05:26 AM PRIMARY Primary osteoarthritis, left shoulder WILFRID ROME [facility] June 24, 2023 05:26 AM SECONDARY Impingement syndrome of left shoulder WILFRID ROME [facility] Plan of Treatment: Future Appointments (+ 6 months) and Future Tests (+/- 45 days) The Plan of Treatment section includes future care activities for the patient from all CT treatmentfacilities. This section includes future appointments and future orders which are active, pending or scheduled. Future Appointments This section includes appointments that were scheduled to occur 6 months from the date of the Encounter, up to a maximum of 20 appointments. The data comes from all CT treatment facilities. Appointment Date/Time Appointment Type Appointme nt Facility Name June 20, 2023 09:00 AM [facility]ULATORY - [facility] Jul 26, 2023 10:30 AM [facility]ULATORY [facility] NONE [facility] [place] [facility] Jul 26, 2023 11:00 AM AMBULATORY [facility] PSYCHIATRY [facility] [place] [facility] Jul 26, 2023 11:30 AM AMBULATORY - NONE [facility] [place] [facility] Aug 08, 2023 08:30 AM AMBULATORY [facility]IATRY [facility] [place] [facility] Aug 22, 2023 11:30 AM AMBULATORY - PS[facility]IATRY [facility] [place] [facility] Sep 26, 2023 09:00 AM [facility] [place] [facility] Oct 21, 2023 09:00 AM [facility]ATORY [facility] [place] [facility] Oct 25, 2023 10:00 AM AMBULATORY - NONE [facility] [place] [facility] Nov 09, 2023 09:30 AM AMBULATORY [facility]IATRY [facility] [place] [facility] Nov 09, 2023 11:20 AM AM[facility]ULATORY [facility]ICINE [facility] [place] [facility] Active, Pending, and Scheduled Orders This section includes a listing of several types of active, pending, and scheduled orders, including clinic medications orders, diagnostic test orders, procedure orders and consult orders; where the start date of the order is 45 days before the date of the Encounter or 45 days after the date of theEncounter. The data comes from all CT treatment facilities. Test Date/Time Test Type Test Details Facility Name June 20, 2023 12:00 AM Laboratory - Chemistry Order BASIC METABOLIC PANEL (fasting) BLOOD (SST-SERUM) [facility] [place] [facility] June 20, 2023 12:00 AM Laboratory - Chemistry Order CBC AND DIFF (AUTO) BLOOD (LAV-BLOOD) [facility] [place] [facility] June 20, 2023 12:00 AM Laboratory - Chemistry Order LIVER FUNCTION BLOOD (SST-SERUM) [facility] [place] [facility] June 20, 2023 12:00 AM Laboratory - Chemistry Order LIPID PANEL FASTING BLOOD (SST-SERUM) [facility] [place] [facility] June 20, 2023 12:00 AM Laboratory - Chemistry Order TSH BLOOD (SST-SERUM) [facility] [place] [facility] June 20, 2023 12:00 AM Laboratory - Chemistry Order PSA BLOOD (SST-SERUM) [facility] June 20, 2023 12:00 AM Laboratory - Chemistry Order URINALYSIS CLEAN CATCH [facility] [place] [facility] June 20, 2023 12:00 AM Laboratory - Chemistry Order CALCIUM BLO[facility] ([facility]SERUM) [facility] June 20, 2023 12:00 AM Laboratory - Chemistry Order VITAMIN B12 BLOOD (SST-SERUM) [facility] June 20, 2023 12:00 AM Laboratory - Chemistry Order FOLATE (WROX) BLOOD (SST-SERUM) [facility] Lab Results: +/- 30 days of the encounter This section includes the Chemistry and Hematology Lab Results on record with [facility] for the patient. Radiology Reports and Pathology Reports are provided separately, in subsequent sections. Lab Results This section contains the Chemistry/Hematology Results that were resulted 30 days before or 30 daysafter the date of the Encounter. Date/Time Source Result Type Result - Unit Interpretation Reference Range Comment Apr 28, 2023 11:03 AM [facility] LIPID PANEL, NON FASTING Specimen Type: SERUM No comment entered. Ordering Provider: ROSHAN MESA MD Report Released Date/Time: Apr 28, 2023 10:40 AM Reporting Lab: [address] [address] Performing Lab: [address] [address] CHOLESTEROL 183 mg/dL TRIGLYCERIDE 304 mg/dL H [...] Source May 18, 2023 08:02 AM 156/90 [facility] May 18, 2023 08:01 AM 80 156/90 20 94 0 263 38 [facility] [place] [facility] Social History: Smoking Status (Most current) and Tobacco Use (All prior to encounter date) This section includes the most current, and the historical, smoking and tobacco- related health factors from the [place] facility where the Encounter took place. Current Smoking Status This section includes the most current smoking, or tobacco-related health factor, from the [place] facility where the Encounter took place. Date/Time Current Smoking Status Comment Facil ity Oct 18, 2022 03:16 PM VA-TOBACCO FORMER USER [facility] [place] [facility] Tobacco Use History This section includes a history of the smoking, or tobacco-related health factors, that were collected on or before the date of the Encounter. The data comes from the [place] facility where the Encounter took place. Date/Time Smoking Status/Tobacco Use Comment F acility Oct 18, 2022 03:16 PM VA-TOBACCO QUIT 15 YRS OR MORE [facility] [place] [facility] Nov 12, 2021 10:30 AM VA-TOBACCO FORMER USER [facility] [place] [facility] Nov 12, 2021 10:30 AM VA-TOBACCO QUIT 5 TO < 15 YRS [facility] [place] [facility] Oct 01, 2020 11:02 AM VA-TOBACCO FORMER USER [facility] [place] [facility] Oct 01, 2020 11:02 AM VA-TOBACCO QUIT 15 YRS OR MORE [facility] [place] [facility] Oct 25, 2019 11:30 AM VA-TOBACCO FORMER USER [facility] [place] [facility] Oct 25, 2019 11:30 AM VA-TOBACCO QUIT 5 TO < 15 YRS [facility] [place] [facility] Sep 07, 2018 09:43 AM VA-TOBACCO FORMER USER [facility] [place] [facility] Sep 07, 2018 09:43 AM VA-TOBACCO QUIT 5 TO < 15 YRS [facility] [place] [facility] Apr 25, 2018 02:08 PM VA-TOBACCO USE DEC LINED TO ANSWER [facility] [place] [facility] Encounter Notes: All associated encounter notes This section contains the clinical notes associated to the Encounter. 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 Onset/Course:Few months ago had shoulder pain after lifting weights. Daily activities/exercise: He does go to the gym at this point and is doing more cardiovascular work without lifting free weights. He is doing some machine work but is uncertain as to which machines might trigger some of his discomfort. He continues to make efforts and blood pressure control however today's blood pressure was a bit high. He does take his medications appropriately. Pertinent prior procedures and/or imaging: X-rays reviewed. No previous physical therapy for the left shoulder. Right shoulder did have therapy after replacement 5 years ago. PMHx as obtained from Chart: Active problems - Computerized Problem List is the source for the followin. Joint pain in both shoulders 2. Renal cell carcinoma 3. Renal cyst 4. Multiple nodules of lung 5. Aneurysm of iliac artery 6. Pain in left knee 7. Prostate Cancer ([facility] [id number]) 8. Polyp Colon ([facility] [id number]) 9. HTN - Hypertension ([facility] [id number]) 10. Hyperlipidemia ([facility] [id number]) 11. Benign neoplasm of adrenal gland 12. Nocturia 13. Erectile dysfunction 14. Anxiety ([facility] [id number]) 15. Alcohol Abuse ([facility] [id number]) PSxHx: Adrenal neoplasm. Right kidney removed. Right reverse shoulder Fam Hx: Noncontributory Soc Hx: MARITAL STATUS - AIR [employer] FROM Aug TO Aug Service Connected Disabilities with % Eligibility: SC LESS THAN 50% VERIFIED Total S/C %: 10 TINNITUS 10% S/C ALL: PERCOCET, LISINOPRIL, METOPROLOL MEDS: Active Outpatient Medications (including Supplies): AMLODIPINE BESYLATE 10MG TAB TAKE ONE TABLET BY MOUTH ONCE ACTIVE DAILY FOR BLOOD PRESSURE/HEART, DO NOT TAKE WITH GRAPEFRUIT JUICE ARIPIPRAZOLE 20MG TAB TAKE ONE-HALF TABLET BY MOUTH ONCE ACTIVE DAILY MOOD ATORVASTATIN CALCIUM 80MG TAB TAKE ONE-HALF TABLET BY ACTIVE MOUTH AT BEDTIME DICLOFENAC NA 1% TOP GEL APPLY 2 GRAMS TOPICALLY THREE ACTIVE TIMES DAILY NEEDED DIRECTED FOR LEFT SHOULDER PAIN - USE DOSING CARD PROVIDED IN BOX LOSARTAN 25MG TAB TAKE ONE TABLET BY MOUTH ONCE DAILY FOR ACTIVE BLOOD PRESSURE/HEART VENLAFAXINE HCL 75MG 24HR SA CAP TAKE ONE CAPSULE BY MOUTH ACTIVE ONCE DAILY DEPRESSION/ ANXIETY Non-VA MULTIVITAMIN CAP/TAB 1 TABLET BY MOUTH ONCE DAILY ACTIVE Non-VA OTHER CAP/TAB AREDS EYE VITAMINS BY MOUTH ONCE ACTIVE DAILY Active Medications from Remote Data ESCITALOPRAM OXALATE 20MG TAB Sig: TAKE ONE TABLET BY MOUTH ONCE A DAY FOR MAJOR DEPRESSIVE DISORDER. Quantity: 90 Days Supply: 90 Original # of Refills: 1 Rx Expiration: 09/14/23 Last filled 10/21/[address] [facility] (Active) ARIPIPRAZOLE 20MG TAB Sig: TAKE ONE-HALF TABLET BY MOUTH ONCE A DAY Quantity: 45 Days Supply: 90 Original # of Refills: 2 Rx Expiration: 08/03/23 Last filled 10/01/[address] [facility] (Active) ROS: Constitutional - Denies fever or chills, night sweats, or unexplained weight loss. Head/Eyes/Ears/Neck- Denies headaches, dizziness, visual changes. Cardiovascular - Denies chest pain/palpitations, lower extremity swelling. Respiratory - Denies shortness of breath, or cough. GI - Denies nausea, vomiting, or loss of bowel fx/control. - Denies urinary difficulties or loss of bladder function. Musculoskeletal - See HPI. Neuro - See HPI. Psychiatric - See PMHx. Denies mood swings or change in behavior. Sleep - Denies nocturnal pain or excessive daytime fatigue. Skin/integuments - Denies rashes, lesions, or skin breakdown in the extremities. All other systems reviewed and are negative. PHYSICAL EXAMINATION: Vitals in chart. GEN: WD, WN. Awake, alert, cooperative with exam. In NAD. PSYCH: Good eye contact. Normal mood. Appropriately concerned. CVS: Extremities warm/well perfused. No lower extremity edema appreciated. PULM: Breathing unlabored, no accessory muscle use. ABD: Nondistended. EXTREMITIES: No cyanosis or edema of bilateral upper and lower extremities. SKIN: No rashes, lesions, or skin breakdown over exposed areas. MUSCULOSKELETAL/NEURO EXAM: Appears well. Mild anterior inclination of the cervical spine. Slight scapular dyskinesia with protraction of the left greater than right scapula. He has some relative weakness of the inferior rhomboid and latissimus dorsi. No atrophy was noted. No tenderness over the levator scapula. He has preserved strength of the muscles of the rotator cuff. Negative drop arm test. Range of motion is 90 degrees of abduction flexion to 120 degrees and extension to L4 on the left side. No skin changes noted. Biceps is not retracted. No swelling in the upper extremity. Gait: normal, symmetric, negative Trendelenburg. Able to perform tandem walk and heel/toe walk. Labs: Collection DT Spec WBC HGB HCT PLT K+/Pot Sodium HGBA1c 03/10/2021 08:42 SERUM 4.3 138 03/10/2021 08:42 BLOOD 5.3 03/10/2021 08:42 BLOOD 6.67 13.0 38.3 L 369 H 10/13/2020 12:01 BLOOD 6.13 13.1 37.6 L 285 10/13/2020 12:00 SERUM 4.5 137 Collection DT Spec GLUCOSE CREATIN AST ALT T BILI ALK ANU CHOL 04/28/2023 11:03 SERUM 183 03/10/2021 08:42 SERUM 101 H 1.24 22 36 0.5 82 208 H 10/13/2020 12:00 SERUM 91 1.02 16 20 0.7 83 214 H 02/05/2020 11:32 SERUM 93 1.19 16 19 0.7 78 185 08/06/2019 07:49 SERUM 113 H 1.14 17 25 0.9 78 207 H Collection DT Spec LDL-c HDL TRIG TSH B12 SR- VIT D25 HIV Ag/ 04/28/2023 11:03 SERUM Reflex to dLDL 37 L 304 H 03/10/2021 08:42 SERUM 108 50 248 H 10/13/2020 12:00 SERUM 119 50 223 H 02/05/2020 11:32 SERUM 100 53 159 H 1.09 08/06/2019 07:49 SERUM NON-REACTIVE Collection DT Spec RBC/HPF 08/06/2019 07:57 URINE 3-5 01/16/2019 11:41 URINE 6-10 H CHEM 7 TREND LAB CUMULATIVE SELECTED Collection DT Spec GLUCOSE BUN CREATIN Sodium K+/Pot CL CO2 03/10/2021 08:42 SERUM 101 H 16 1.24 138 4.3 101 27 10/13/2020 12:00 SERUM 91 18 1.02 137 4.5 103 23 02/05/2020 11:32 SERUM 93 17 1.19 137 4.9 102 26 08/06/2019 07:49 SERUM 113 H 18 1.14 135 5.1 H 100 26 01/16/2019 11:35 SERUM 110 H 17 1.10 137 4.9 101 25 LAB CUMULATIVE SELECTED 2 No selection items chosen for this component. CHEM 7 Results Collection DT Spec Sodium K+/Pot CL CO2 GLUCOSE BUN 03/10/2021 08:42 SERUM 138 4.3 101 27 101 H 16 10/13/2020 12:00 SERUM 137 4.5 103 23 91 18 02/05/2020 11:32 SERUM 137 4.9 102 26 93 17 08/06/2019 07:49 SERUM 135 5.1 H 100 26 113 H 18 01/16/2019 11:35 SERUM 137 4.9 101 25 110 H 17 Liver Function Tests No data available for: AST ALT ALKALINE PHOSPHATASE ALBUMIN BILIRUBIN, TOTAL LDH PROTEIN,TOTAL HEMOGLOBIN A1C TREND Collection DT Spec HGBA1c 03/10/2021 08:42 BLOOD 5.3 02/05/2020 11:32 BLOOD 5.4 08/06/2019 07:50 BLOOD 5.3 01/25/2019 11:49 BLOOD 5.4 Diagnostic Studies: X-rays of the left shoulder were reviewed and he has moderate glenohumeral arthritis with moderate acromioclavicular arthritis. Spur at the inferior distal clavicle likely to be impinging. Moderate loss of cartilage within the humeral head. Marginal spurring ASSESSMENT/PLAN: Patient is a 68-year-old [place] presenting today for evaluation of left shoulder pain. Left shoulder pain has dissipated. He was in today because he was concerned that he will be moving in the direction of the right shoulder which required total shoulder replacement. He has done well with the right side but the left side seems to be doing quite fine at this point. He was educated on shoulder mechanics today in detail. We reviewed his exercise regime and incorporated scapular stabilization and core activation exercises. Avoidance of excessive work outside of the impingement arc. Discussed a band program that may be more functional for him. Discussed exercises to avoid on Nautilus types of equipment. FOLLOW-UP:prn Potential risks and side effects of any medication(s) prescribed today was reviewed with . Patient had many excellent questions, which I answered to the best of my ability and to patient's apparent satisfaction. MDM: 50 minutes which includes reviewing records, evaluating patient, documenting in medical record, educating, counseling and coordinating care. Medication Reconciliation: Outpatient: Has the patient been taking medications as documented in the EMLR? YES: The patient has been taking medications as documented in the EMLR. Essential Medication List for Review used to complete this medication reconciliation. INCLUDED IN THIS LIST: Alphabetical list of active outpatient prescriptions dispensed from this [facility] (local) and dispensed from another CT or [facility] facility (remote) as well as [...] whether with a VA or non-VA provider. Medication List: JLV Link Data on this list may not be complete. Please check JLV. Allergies/ADRs (Tool #5) FACILITY ALLERGY/ADR -------- [facility] ([address] [facility] [place] [facility] LISINOPRIL CT [facility] METOPROLOL [facility] PERCOCET Med. Reconciliation (Tool #1) INCLUDED IN THIS LIST: Alphabetical list of active outpatient prescriptions dispensed from this CT (local) and dispensed from another CT or [facility] facility (remote) as well as inpatient orders (local pending and active), local clinic medications, locally documented non-VA medications, and local prescriptions that have or been discontinued in the past 90 days. Non-VA Meds Last Documented On: Jan 25, 2019 NOTE The display of VA prescriptions dispensed from another CT or [facility] facility (remote) is limited to active outpatient prescription entries matched to National Drug File at the originating site and may not include some items such as investigational drugs, compounds, etc. NOT INCLUDED IN THIS LIST: Medications self-entered by the patient into personal health records (i.e. [employer]) are NOT included in this list. Non-VA medications documented outside this CT, remote inpatient orders (regardless of status) and remote clinic medications are NOT included in this list. The patient and provider must always discuss medications the patient is taking, regardless of where the medication was dispensed or obtained. OUTPT AMLODIPINE BESYLATE 10MG TAB (Status = Active) TAKE ONE TABLET BY MOUTH ONCE DAILY FOR BLOOD PRESSURE/HEART, DO NOT TAKE WITH GRAPEFRUIT JUICE Rx# [id number] Last Released: 03/14/23 Qty/Days Supply: Rx Expiration Date: 12/21/23 Refills Remainin Indication: FOR HIGH BLOOD PRESSURE OUTPT ARIPIPRAZOLE 20MG TAB (Status = Discontinued) TAKE ONE-HALF TABLET BY MOUTH ONCE DAILY MOOD Rx# [id number] Last Released: 04/26/23 Qty/Days Supply: Rx Expiration Date: 01/28/24 Refills Remainin Indication: MOOD OUTPT ARIPIPRAZOLE 20MG TAB (Status = Active) TAKE ONE-HALF TABLET BY MOUTH ONCE DAILY MOOD Rx# [id number] Last Released: Qty/Days Supply: Rx Expiration Date: 04/28/24 Refills Remainin Indication: MOOD Remote ARIPIPRAZOLE 20MG TAB TAKE ONE-HALF TABLET BY MOUTH ONCE A DAY Last Filled: 10/01/22 (Active at [facility]) Rx Expiration Date: 08/03/23 Days Supply: 90 OUTPT ATORVASTATIN CALCIUM 80MG TAB (Status = Active) TAKE ONE-HALF TABLET BY MOUTH AT BEDTIME Rx# [id number] Last Released: 03/14/23 Qty/Days Supply: 45 Rx Expiration Date: 12/21/23 Refills Remainin Indication: FOR HIGH CHOLESTEROL OUTPT DICLOFENAC NA 1% TOP GEL (Status = Active) APPLY 2 GRAMS TOPICALLY THREE TIMES DAILY NEEDED DIRECTED FOR LEFT SHOULDER PAIN - USE DOSING CARD PROVIDED IN BOX Rx# [id number] Last Released: 03/21/23 Qty/Days Supply: Rx Expiration Date: 03/21/24 Refills Remainin Indication: FOR JOINT PAIN Remote ESCITALOPRAM OXALATE 20MG TAB TAKE ONE TABLET BY MOUTH ONCE A DAY FOR MAJOR DEPRESSIVE DISORDER. Last Filled: 10/21/22 (Active at [facility]) Rx Expiration Date: 09/14/23 Days Supply: 90 OUTPT LOSARTAN 25MG TAB (Status = Active) TAKE ONE TABLET BY MOUTH ONCE DAILY FOR BLOOD PRESSURE/HEART Rx# [id number] Last Released: 03/14/23 Qty/Days Supply: 90 Rx Expiration Date: 12/21/23 Refills Remainin Indication: FOR HIGH BLOOD PRESSURE Non-VA MULTIVITAMIN CAP/TAB TAKE ONE TABLET BY MOUTH ONCE DAILY Patient wants to buy from Non-VA pharmacy. Medication prescribed by Non-VA provider. centrum over 50 Non-VA OTHER CAP/TAB TAKE AREDS EYE VITAMINS BY MOUTH ONCE DAILY Patient wants to buy from Non-VA pharmacy. Medication prescribed by Non-VA provider. OUTPT VENLAFAXINE HCL 75MG 24HR SA CAP (Status = Discontinued) TAKE ONE CAPSULE BY MOUTH ONCE DAILY Rx# [id number] Last Released: 04/26/23 Qty/Days Supply: Rx Expiration Date: 01/28/24 Refills Remainin Indication: DEPRESSION/ ANXIETY OUTPT VENLAFAXINE HCL 75MG 24HR SA CAP (Status = Active) TAKE ONE CAPSULE BY MOUTH ONCE DAILY DEPRESSION/ ANXIETY Rx# [id number] Last Released: Qty/Days Supply: Rx Expiration Date: 04/28/24 Refills Remainin Indication: DEPRESSION/ ANXIETY SUPPLIES PHARMACY TERMS AND POSSIBLE PATIENT ACTIONS INPT = CT inpatient order IV = CT intravenous medication OUTPT = CT outpatient prescription PHARMACY POSSIBLE PATIENT TERMS EXPLANATION ACTIONS -------- ----- ACTIVE A prescription that can be If you have refills, filled at the local [place] pharmacy. you may request a refill of this prescription from your [place] pharmacy. CLINIC A medication you received during If you have questions a visit to a CT clinic or about this medication emergency department. contact your [place] healthcare team. DISCONTINUED A prescription your provider has Contact your VA stopped. It is no longer healthcare team if you available to be sent to you or need more of this picked up at the CT pharmacy medication. window. A prescription which is too old Contact your CT to fill. This does not refer to healthcare team if you the expiration date of the need more of this medication in the container. medication. NON-VA A medication that came from If this medication someplace other than a VA information is pharmacy. This may be a incorrect or out of prescription from either the VA date, please tell your or non VA providers that was VA healthcare team. filled outside the VA. Or, it may be an [id number] (OTC), herbal, dietary supplements or sample medication. ON HOLD An active prescription that will Contact your VA not be filled until pharmacy pharmacy when you need resolves the issue. more of this medication. PARKED An active prescription that will Contact your VA not be filled until the patient pharmacy when you need requests it. this medication. PENDING This prescription order has been If you have been sent to the pharmacy for review instructed to start and is not ready yet. this medication now, contact your VA pharmacy. SUSPENDED An active prescription that is Contact your CT not scheduled to be filled yet. pharmacy if you need You should receive it before this medication now. you run out. /ta/ ANAYELI ROME [facility] Signed: 05/18/2023 09:[address] [facility]
--- OUTSIDE RECORDS SUMMARY | 2024-02-15 17:25 | XMS_ITS | Encounter Summary ---
Author Name [facility] Organization [facility] ([place]) Address [address] [place] [address] Care Team Providers Care Lab Systems Analyst Name Role Phone ROSELYN PEREZ Primary Care [...] [id number] NOEMI BREEN ERT PATIENT MEDICARE (WNR) MEDICARE (M) PART A Feb 13, 2019 PART A [id number] NOEMI BREEN ERT PATIENT MEDICARE (WNR) MEDICARE (M) PART B Feb 13, 2019 PART B [id number] [phone] NOEMI BREEN ERT PATIENT MEDICARE (WNR) MEDICARE (M) PART A Feb 13, 2019 PART A [id number] [phone] NOEMI BREEN ERT PATIENT MEDICARE (WNR) MEDICARE (M) PART B Feb 13, 2019 PART B [id number] [phone] NOEMI BREEN ERT PATIENT MEDICARE (WNR) MEDICARE (M) PART A Feb 13, 2019 PART A [id number] NOEMI BREEN ERT PATIENT MEDICARE (WNR) MEDICARE (M) PART B Feb 13, 2019 PART B [id number] [phone] NOEMI BREEN ERT PATIENT FOR LIFE TFL* Feb 13, 2019 [id number] NOEMI BREEN ERT PATIENT FOR LIFE SUPPLEMEN SHAI TFL Feb 13, 2019 FOR LIFE [id number] NOEMI BREEN ERT PATIENT -FO R-LIFE DIREC T CARE Oct 05, 2022 FOR LIFE [id number] NOEMI BREEN ERT PATIENT Selected Encounter This section includes the information on record at [place] for the Encounter. Date/Time Encounter Type Encounter Description Reason Pro vider Source Jul 30, 2023 06:59 PM Outpatient Encounter PRIMARY CARE/MEDICINE IHE Encounter Template Text not used by [place] Plan of Treatment: Future Appointments (+ 6 months) and Future Tests (+/- 45 days) The Plan of Treatment section includes future care activities for the patient from all [place] treatmentfacilities. This section includes future appointments and future orders which are active, pending or scheduled. Future Appointments This section includes appointments that were scheduled to occur 6 months from the date of the Encounter, up to a maximum of 20 appointments. The data comes from all [place] treatment facilities. Appointment Date/Time Appointment Type Appointme nt Facility Name Aug 08, 2023 08:30 AM AMBULATORY - PS[place]IATRY [place] [facility] [place] [facility] Aug 22, 2023 11:30 AM AMBULATORY - PSYCHIATRY [facility] [place] [facility] Sep 26, 2023 09:00 AM AMBULATORY - MEDICINE RI C [facility] [place] [facility] Oct 21, 2023 09:00 AM AMBULATORY - MEDICINE [place] [facility] [place] [facility] Oct 25, 2023 10:00 AM AMBULATORY - NONE [facility] [place] [facility] Nov 09, 2023 09:30 AM AMBULATORY - PSYCHIATRY [facility] [place] [facility] Nov 09, 2023 11:20 AM [facility] Nov 23, 2023 03:30 PM [facility]ULAT[facility] Dec 20, 2023 02:30 PM AMBULATORY - [facility] Jan 01, 2024 02:00 PM AMBULATORY - [facility]ICINE [place] [facility] Active, Pending, and Scheduled Orders This section includes a listing of several types of active, pending, and scheduled orders, including clinic medications orders, diagnostic test orders, procedure orders and consult orders; where the start date of the order is 45 days before the date of the Encounter or 45 days after the date of theEncounter. The data comes from all [place] treatment facilities. Test Date/Time Test Type Test Details Facility Name June 20, 2023 12:00 AM Laboratory - Chemistry Order BASIC METABOLIC PANEL (fasting) BLOOD (SST-SERUM) [facility] June 20, 2023 12:00 AM Laboratory - Chemistry Order LIVER FUNCTION BLOOD (SST-SERUM) [facility] June 20, 2023 12:00 AM Laboratory - Chemistry Order CBC AND DIFF (AUTO) BLOOD (LAV[facility]BLOOD) [facility] June 20, 2023 12:00 AM Laboratory - Chemistry Order LIPID PANEL FASTING BLOOD (SST-SERUM) [facility] June 20, 2023 12:00 AM Laboratory - Chemistry Order TSH BLOOD (SST-SERUM) [facility] June 20, 2023 12:00 AM Laboratory - Chemistry Order PSA BLOOD (SST-SERUM) [facility] June 20, 2023 12:00 AM Laboratory - Chemistry Order URINALYSIS CLEAN CATCH URINE [facility] June 20, 2023 12:00 AM Laboratory - Chemistry Order FOLATE (WROX) BLOOD (SST-SERUM) [facility] June 20, 2023 12:00 AM Laboratory - Chemistry Order CALCIUM BLOOD (SST-SERUM) [facility] June 20, 2023 12:00 AM Laboratory - Chemistry Order VITAMIN B12 BLOOD (SST-SERUM) SP [place] [facility] [place] [facility] Aug 22, 2023 11:53 AM Consult Order COMMUNITY CARE-NEUROLOGY Cons Certified [employer] [place] [facility] [place] [facility] Social History: Smoking Status (Most current) and Tobacco Use (All prior to encounter date) This section includes the most current, and the historical, smoking and tobacco- related health factors from the [place] facility where the Encounter took place. Current Smoking Status This section includes the most current smoking, or tobacco-related health factor, from the [place] facility where the Encounter took place. Date/Time Current Smoking Status Comment Facil ity Oct 18, 2022 03:16 PM VA-TOBACCO FORMER USER [place] [facility] [place] [facility] Tobacco Use History This section includes a history of the smoking, or tobacco-related health factors, that were collected on or before the date of the Encounter. The data comes from the [place] facility where the Encounter took place. Date/Time Smoking Status/Tobacco Use Comment F acility Oct 18, 2022 03:16 PM VA-TOBACCO QUIT 15 YRS OR MORE [facility] [place] [facility] Nov 12, 2021 10:30 AM VA-TOBACCO FORMER USER [place] [facility] [place] [facility] Nov 12, 2021 10:30 AM VA-TOBACCO QUIT 5 TO < 15 YRS [facility] [place] [facility] Oct 01, 2020 11:02 AM VA-TOBACCO FORMER USER [facility] [place] [facility] Oct 01, 2020 11:02 AM VA-TOBACCO QUIT 15 YRS OR MORE [facility] [place] [facility] Oct 25, 2019 11:30 AM VA-TOBACCO FORMER USER [facility] [place] [facility] Oct 25, 2019 11:30 AM VA-TOBACCO QUIT 5 TO < 15 YRS [facility] [place] [facility] Sep 07, 2018 09:43 AM VA-TOBACCO FORMER USER [facility] [place] [facility] Sep 07, 2018 09:43 AM VA-TOBACCO QUIT 5 TO < 15 YRS [facility] [place] [facility] Apr 25, 2018 02:08 PM VA-TOBACCO USE DEC LINED TO ANSWER [facility] [place] [facility] Radiology Reports: +/- 30 days of the encounter Radiology Reports For cases when an order for radiology services may have been completed prior to the date of the Encounter, the report list includes the Radiology Reports that were completed up to 30 days before dateof the Encounter. For cases when an order for radiology services may have been completed after the date of the Encounter, the report list also includes the Radiology Reports that were completed up to30 days after date of the Encounter. The data comes from all [place] treatment facilities. Date/Time Radiology Report Provider Source Jul 26, 2023 10:[address] PULMONARY NODULES W/O CONTRAST: NAINA BREEN NARESH [id number] -[id number] M Exm Date: JUL 26, 2023@10:37 Req Phys: NITISH ASENCIO Loc: CWM/NO/PACT 2 (Req'g Loc) Img Loc: NHM/CT Service: Unknown [facility] , (Case [id number] COMPLETE) CT THORAX W/O CONT (CT Detailed) CPT:29089 Reason for Study: f/u nodules Clinical History: ex smoker 5 ppd Report Status: Verified Date Reported: JUL 26, 2023 Date Verified: JUL 26, 2023 Director Of Sustainability Programs E-Sig:/ES/RONNIE COLMENARES JR Report: Study: Lung cancer screening CT of the chest. Provided History: Lung cancer screening. Comparison: CT scan of the chest from March 23, 2021. CT scan of the abdomen and pelvis from March 10, 2021. Technique: 1 mm lung algorithm and 3 mm soft tissue algorithm axial reconstructions from the lung apices through the lung bases without the administration of intravenous contrast as per standard department protocol for lung cancer screening. Subsequently, sagittal and coronal reformats were generated. MIP images also provided and reviewed. Secondary computer-aided detection with post-processing from [employer] is used. The lack of intravenous contrast inherently limits the evaluation of hilar structures, vascular structures, and abnormal enhancement patterns. Lower than standard dose was utilized limiting sensitivity for fine parenchymal detail. Dose Parameters: CTDI(vol): 3.6 mGy. DLP: 146.8 mGy*cm. Findings: Lungs: Emphysema: None significant. Index Nodule: Interval growth of a 5.1 mm solid, round, well-circumscribed left lower lobe pulmonary nodule, 8-306 which previously measured 3.8 mm. Other Nodules: Stable 3.6 mm right lower lobe solid irregular pulmonary nodule, 8-261. Lungs/airway findings: Multiple scattered bilateral punctate calcified granulomata are again seen. Stable right lower lobe scarring/atelectasis again seen centered around 8-240. No acute pulmonary process or pleural effusion is identified. There are mild dependent changes present at the lung bases. The tracheobronchial tree is patent and normal. Heart, mediastinum and lymph nodes: The heart size is normal. No pericardial effusion identified. Normal caliber thoracic aorta with tortuosity of the descending aorta. No mediastinal or hilar lymphadenopathy by size criteria. No axillary lymphadenopathy by size criteria. Normal caliber pulmonary arteries. Visualized coronary artery and aortic calcifications: Atherosclerotic changes of the aorta and coronary arteries. Upper abdomen: Surgical clips in the right renal fossa likely status post right nephrectomy. There is a 30 Hounsfield unit, round, solid, well-circumscribed 3.9 cm in greatest dimension stable mass lateral to the upper pole of the left kidney. This area was not imaged on comparison chest CT but appears unchanged from comparison CT abdomen and pelvis. The lack of interval change suggests a benign etiology. Attention on follow-up imaging can be performed. Bones and soft tissues: Status post right shoulder arthroplasty. Normal age-related degenerative changes present. No acute bony abnormality identified. Other findings: None. Impression: Since 2021, interval growth of the left lower lobe pulmonary nodule. Lung-RADS Assessment: Category 4A, suspicious. Recommendation: Lung cancer screening CT at 3 months. PET/CT may be considered when the solid component of the nodule is = or > 8 mm. Other Significant Findings and Recommendations: None. Primary Diagnostic Code: No immediate attention required Secondary Diagnostic Codes: LUNGRADS 4A: SUSPICIOUS Primary Interpreting Staff: RONNIE COLMENARES JR, Radiologist (Director Of Sustainability Programs) /RONNIE WOLFE JR [facility] Jul 26, 2023 10:25 AM DUPLEX SCAN: NON-INVAS. CAROTID IMAGING: NAINA BREEN NARESH [id number] -1955 M Exm Date: JUL 26, 2023@10:25 Req Phys: NITISH ASENCIO Loc: CWM/NO/PACT 2 (Req'g Loc) Img Loc: ULTRASOUND Service: Unknown [facility] , (Case [id number] COMPLETE) DUPLEX SCAN: NON-INVAS. CAROTID I(US Detailed) CPT:24062 Reason for Study: look for blockage Clinical History: Report Status: Verified Date Reported: JUL 26, 2023 Date Verified: JUL 26, 2023 Director Of Sustainability Programs E-Sig:/ES/RONNIE COLMENARES JR Report: Study: Carotid ultrasound. Comparison: None. Findings: Right internal carotid artery peak systolic velocity is 56 cm/sec. Right internal carotid artery peak end-diastolic velocity is 15 cm/sec. ICA/CCA ratio is 0.7 . Vertebral artery flow is antegrade. Left internal carotid artery peak systolic velocity is 67 cm/sec. Left internal carotid artery peak end-diastolic velocity is 18 cm/sec. ICA/CCA ratio is 0.9 . Vertebral artery flow is antegrade. A mild burden of atherosclerotic plaque is seen to the carotid bulb and extending into the carotid bifurcation bilaterally. Impression: No hemodynamically significant internal carotid artery stenosis. Consensus Panel Xavier-Scale and Doppler US Criteria for Diagnosis of ICA Stenosis (Connor, Radiology 12/2002) Normal: ICA PSV < 125 cm/sec Plaque Estimate None ICA/CCA PSV Ratio < 2.0 ICA EDV < 40 cm/sec < 50%: ICA PSV < 125 cm/sec Plaque Estimate < 50% ICA/CCA PSV Ratio < 2.0 ICA EDV < 40 cm/sec 50 - 69%: ICA PSV 125-230 cm/sec Plaque Estimate > or = 50% ICA/CCA PSV Ratio 2.0-4.0 ICA EDV 40-100 cm/sec > or = 70%, less than near occlusion: ICA PSV > 230 cm/sec Plaque Estimate > or = 50% ICA/CCA Ratio > 4.0 ICA EDV > 100 cm/sec Additional criteria from vascular surgery: > 80% EDV > 120 cm/sec Primary Diagnostic Code: No immediate attention required Primary Interpreting Staff: RONNIE COLMENARES JR, Radiologist (Director Of Sustainability Programs) /RONNIE WOLFE JR [facility] Encounter Notes: All associated encounter notes This section contains the clinical notes associated to the Encounter. Date/Time Encounter Note(s) Provider Source Jul 30, 2023 07:05 PM PHYSICIAN NOTE: LOCAL TITLE: MD NOTE STANDARD TITLE: PHYSICIAN NOTE DATE OF NOTE: JUL 30, 2023@19:05 ENTRY DATE: JUL 30, 2023@19:05:40 AUTHOR: NITISH ASENCIO EXP COSIGNER: URGENCY: STATUS: COMPLETED Patient letter dated today emailed to patient /ta/ Nitish Gallegos. MD Lanedn Staff Physician Signed: 07/30/2023 19:05 NITISH ASENCIO [facility] [place] [facility] Jul 30, 2023 07:01 PM LETTERS: LOCAL TITLE: PATIENT LETTER (T) STANDARD TITLE: LETTERS DATE OF NOTE: JUL 30, 2023@19:01 ENTRY DATE: JUL 30, 2023@19:01:17 AUTHOR: NITISH ASENCIO EXP COSIGNER: URGENCY: STATUS: COMPLETED DEPARTMENT OF [facility] Toll Free Number Primary Care Telephone Assistance can be reached at extension [phone] [facility] scheduling can be reached at extension [phone] [facility] scheduling can be reached at ext [phone] NAINA BREEN [address] [place] [address], [id number] July 30, 2023 Dear , Please find enclosed a copy of recent testing. CAT scan of the chest showed mild growth of the left lower lobe nodule. A follow-up CAT scan should be done in 3 months to make sure there is no cancer. Please contact me if you have questions. Respectfully, Nitish Asencio MD Sincerely, Your Primary Care Team [facility] [address] [id number] [place] [address] [facility] [address] [place] [address] [place] [address] [facility] [address] [facility] [place] [address] [place] [address] NITISH ASENCIO [facility] [place] [facility]
--- OUTSIDE RECORDS SUMMARY | 2024-02-15 17:25 | XMS_ITS | Encounter Summary ---
Author Name [facility] ([place]) Organization [facility] ([place]) Address [address] [place] [address] Care Team Providers Care Blade Grader Operator Name Role Phone ROSELYN PEREZ Primary Care [...] TRICA [id number] NOEMI BREEN ERT PATIENT MEDICARE (WNR) MEDICARE (M) PART B Feb 13, 2019 PART B [id number] NOEMI BREEN ERT PATIENT MEDICARE (WNR) MEDICARE (M) PART A Feb 13, 2019 PART A [id number] NOEMI BREEN ERT PATIENT MEDICARE (WNR) MEDICARE (M) PART A Feb 13, 2019 PART A [id number] ONEMI BREEN ERT PATIENT MEDICARE (WNR) MEDICARE (M) PART B Feb 13, 2019 PART B [id number] NOEMI BREEN ERT PATIENT MEDICARE (WNR) MEDICARE (M) PART A Feb 13, 2019 PART A [id number] NOEMI BREEN ERT PATIENT MEDICARE (WNR) MEDICARE (M) PART B Feb 13, 2019 PART B [id number] [phone] NOEMI BREEN ERT PATIENT FOR LIFE TFL* Feb 13, 2019 [id number] [phone] NOEMI BREEN ERT PATIENT FOR LIFE SUPPLEMEN SHAI TFL Feb 13, 2019 [facility] [id number] NOEMI BREEN ERT PATIENT -FO R-LIFE DIREC T CARE Oct 05, 2022 [facility] [id number] NOEMI BREEN ERT PATIENT Selected Encounter This section includes the information on record at ME for the Encounter. Date/Time Encounter Type Encounter Description Reason Pro vider Source Jul 27, 2023 04:23 PM Outpatient Encounter PRIMARY CARE/MEDICINE IHE Encounter Template Text not used by ME Plan of Treatment: Future Appointments (+ 6 [...] AMBULATORY - PSYCHIATRY [facility] [place] [facility] Aug 22, 2023 11:30 AM AMBULATORY - PSYCHIATRY [facility] [place] [facility] Sep 26, 2023 09:00 AM AMBULATORY - MEDICINE [facility] [place] [facility] Oct 21, 2023 09:00 AM AMBULATORY - MEDICINE [facility] [place] [facility] Oct 25, 2023 10:00 AM AMBULATORY - NONE [facility] [place] [facility] Nov 09, 2023 09:30 AM AMBULATORY - PSYCHIATRY [facility] [place] [facility] Nov 09, 2023 11:20 AM [facility] Nov 23, 2023 03:30 PM [facility] Dec 20, 2023 02:30 PM [facility] Jan 01, 2024 02:00 PM [facility]UL[facility] Active, Pending, and Scheduled Orders This section includes a listing of several types of active, pending, and scheduled orders, including clinic medications orders, diagnostic test orders, procedure orders and consult orders; where the start date of the order is 45 days before the date of the Encounter or 45 days after the date of theEncounter. The data comes from all [place] treatment facilities. Test Date/Time Test Type Test Details Facility Name June 20, 2023 12:00 AM Laboratory - Chemistry Order BASIC METABOLIC PANEL (fasting) BLOOD (SST-SERUM) [facility] June 20, 2023 12:00 AM Laboratory - Chemistry Order LIVER FUNCTION [facility]LOOD ([facility]UM[facility] June 20, 2023 12:00 AM Laboratory - Chemistry Order LIPID PANEL FASTING BLOOD (SST-SERUM) [facility] June 20, 2023 12:00 AM Laboratory - Chemistry Order CBC AND DIFF (AUTO) BLOOD (LAV-BLOOD) [facility] June 20, 2023 12:00 AM Laboratory - Chemistry Order PSA BLOOD (SST-SERUM) [facility] June 20, 2023 12:00 AM Laboratory - Chemistry Order TSH BLOOD (SST-SERUM) [facility] June 20, 2023 12:00 AM Laboratory - Chemistry Order URINALYSIS CLEAN CATCH UR[facility] June 20, 2023 12:00 AM Laboratory - Chemistry Order CALCIUM BLOOD (SST-SERUM) [facility] June 20, 2023 12:00 AM Laboratory - Chemistry Order VITAMIN B12 BLOOD (SST-SERUM) [facility] June 20, 2023 12:00 AM Laboratory - Chemistry Order FOLATE (WROX) BLOOD (SST-SERUM) SP [facility] [place] [facility] Aug 22, 2023 11:53 AM Consult Order COMMUNITY CARE-NEUROLOGY Cons Cafe Aide's Choice [facility] [place] [facility] Social History: Smoking Status (Most current) [...] 18, 2022 03:16 PM VA-TOBACCO FORMER USER [facility] [place] [facility] Tobacco Use History This section includes a history of the smoking, or tobacco-related health factors, that were collected on or before the date of the Encounter. The data comes from the ME facility where the Encounter took place. Date/Time Smoking Status/Tobacco Use Comment F acility Oct 18, 2022 03:16 PM VA-TOBACCO QUIT 15 YRS OR MORE [facility] [place] [facility] Nov 12, 2021 10:30 AM VA-TOBACCO FORMER USER [facility] [place] [facility] Nov 12, 2021 10:30 AM VA-TOBACCO QUIT 5 TO < 15 YRS [facility] [place] [facility] Oct 01, 2020 11:02 AM VA-TOBACCO FORMER USER [facility] [place] [facility] Oct 01, 2020 11:02 AM VA-TOBACCO QUIT 15 YRS OR MORE [facility] [place] [facility] Oct 25, 2019 11:30 AM VA-TOBACCO FORMER USER [facility] [place] [facility] Oct 25, 2019 11:30 AM VA-TOBACCO QUIT 5 TO < 15 YRS [facility] [place] [facility] Sep 07, 2018 09:43 AM VA-TOBACCO FORMER USER [facility] [place] [facility] Sep 07, 2018 09:43 AM VA-TOBACCO QUIT 5 TO < 15 YRS [facility] [place] [facility] Apr 25, 2018 02:08 PM VA-TOBACCO USE DEC LINED TO ANSWER [facility] [place] [facility] Radiology Reports: +/- 30 days of the [...] the Encounter. The data comes from all [place] treatment facilities. Date/Time Radiology Report Provider Source Jul 26, 2023 10:[address] PULMONARY NODULES W/O CONTRAST: NAINA BREEN NARESH [id number] -[id number] M Exm Date: JUL 26, 2023@10:37 Req Phys: NITISH ASENCIO Loc: CWM/NO/PACT 2 (Req'g Loc) Img Loc: NHM/CT Service: Unknown [facility] , (Case [id number] COMPLETE) CT THORAX W/O CONT (CT Detailed) CPT:52424 Reason for Study: f/u nodules Clinical History: ex smoker 5 ppd Report Status: Verified Date Reported: JUL 26, 2023 Date Verified: JUL 26, 2023 Patch Setter E-Sig:/ES/RONNIE COLMENARES JR Report: Study: Lung cancer [...] reviewed. Secondary computer-aided detection with post-processing from orangutrans is used. The lack of intravenous contrast [...] Primary Interpreting Staff: RONNIE COLMENARES JR, Radiologist (Patch Setter) /RONNIE WOLFE JR [facility] Jul 26, 2023 10:25 AM DUPLEX SCAN: NON-INVAS. CAROTID IMAGING: NAINA BREEN NARESH [id number] -1955 M Exm Date: JUL 26, 2023@10:25 Req Phys: NITISH ASENCIO Loc: CWM/NO/PACT 2 (Req'g Loc) Img Loc: ULTRASOUND Service: Unknown [facility] , (Case [id number] COMPLETE) DUPLEX SCAN: NON-INVAS. CAROTID I(US Detailed) CPT:73059 Reason for Study: look for blockage Clinical History: Report Status: Verified Date Reported: JUL 26, 2023 Date Verified: JUL 26, 2023 Patch Setter E-Sig:/ES/RONNIE COLMENARES JR Report: Study: Carotid ultrasound. [...] Primary Interpreting Staff: RONNIE COLMENARES JR, Radiologist (Patch Setter) /RONNIE WOLFE JR [facility] Encounter Notes: All associated encounter notes This section contains the clinical notes associated to the Encounter. Date/Time Encounter Note(s) Provider Source Jul 27, 2023 04:40 PM PHYSICIAN NOTE: LOCAL TITLE: MD NOTE STANDARD TITLE: PHYSICIAN NOTE DATE OF NOTE: JUL 27, 2023@16:40 ENTRY DATE: JUL 27, 2023@16:40:05 AUTHOR: NITISH ASENCIO EXP COSIGNER: URGENCY: STATUS: COMPLETED Patient letter dated today emailed to patient /ta/ Nitish Gallegos. MD [place] Staff Physician Signed: 07/27/2023 16:41 NITISH ASENCIO [facility] Jul 27, 2023 04:23 PM LETTERS: LOCAL TITLE: PATIENT LETTER (T) STANDARD TITLE: LETTERS DATE OF NOTE: JUL 27, 2023@16:23 ENTRY DATE: JUL 27, 2023@16:23:36 AUTHOR: NITISH ASENCIO EXP COSIGNER: URGENCY: STATUS: COMPLETED DEPARTMENT OF [facility] Toll Free Number Primary Care Telephone Assistance can be reached at extension [phone] [facility] scheduling can be reached at extension [phone] [facility] scheduling can be reached at ext [phone] NAINA INFANTE [address], [address] July 27, 2023 Dear , Please find enclosed a copy of recent testing. Ultrasound of the carotid arteries showed that there was not a significant blockage. Please contact me if you have questions. Respectfully, Nitish Asencio MD DUPLEX SCAN: NON-INVAS. CAROTID IMAGING Proc Ord: CAROTID DUPLEX BILAT Exm Date: JUL 26, 2023@10:25 Req Phys: NITISH ASENCIO Pat Loc: CWM/NO/PACT 2 (Req'g Loc) Img Loc: ULTRASOUND Service: Unknown [facility] , (Case [id number] COMPLETE) DUPLEX SCAN: NON-INVAS. CAROTID I(US Detailed) CPT:17050 Reason for Study: look for blockage Clinical History: Report Status: Verified Date Reported: JUL 26, 2023 Date Verified: JUL 26, 2023 Report: Study: Carotid ultrasound. Comparison: None. Findings: [...] Primary Diagnostic Code: No immediate attention required Sincerely, Your Primary Care Team [facility] [address] [facility] [address] [place] [address] [place] [address] [phone] [facility] [address] [place] [address] [place] [address] [phone] [facility] [address] [facility] [place] [id number] [place] [address] NITISH ASENCIO [facility]
--- OUTSIDE RECORDS SUMMARY | 2024-02-15 17:25 | XMS_ITS | Encounter Summary ---
Author Name [facility] ([place]) Organization [facility] Address [address] [place] [address] Care Team Providers Care Pull Worker Name Role Phone ROSELYN PEREZ Primary [...] TRICA RE [facility]ODA [facility], [id number] NOEMI BREEN ERT PATIENT MEDICARE (WNR) MEDICARE (M) PART B Feb 13, 2019 PART B [id number] NOEMI BREEN ERT PATIENT MEDICARE (WNR) MEDICARE (M) PART A Feb 13, 2019 PART A [id number] NOEMI BREEN ERT PATIENT MEDICARE (WNR) MEDICARE (M) PART A Feb 13, 2019 PART A [id number] NOEMI BREEN ERT PATIENT MEDICARE (WNR) MEDICARE (M) PART B Feb 13, 2019 PART B [id number] NOEMI BREEN ERT PATIENT MEDICARE (WNR) MEDICARE (M) PART A Feb 13, 2019 PART A [id number] [phone] NOEMI BREEN ERT PATIENT MEDICARE (WNR) MEDICARE (M) PART B Feb 13, 2019 PART B [id number] NOEMI BREEN ERT PATIENT FOR LIFE TFL* Feb 13, 2019 [id number] NOEMI BREEN ERT PATIENT FOR LIFE SUPPLEMEN SHAI TFL Feb 13, 2019 [facility] [id number] NOEMI BREEN ERT PATIENT -FO R-LIFE DIREC T CARE Oct 05, 2022 [facility] [id number] NOEMI BREEN ERT PATIENT Selected Encounter This section includes the information on record at [place] for the Encounter. Date/Time Encounter Type Encounter Description Reason Pro vider Source May 05, 2023 12:00 AM Outpatient Encounter COMMUNITY CARE CONSULT IHE Encounter Template Text not used by PR Plan of Treatment: Future Appointments (+ 6 months) and Future Tests (+/- 45 days) The Plan of Treatment section includes future care activities for the patient from all [place] treatmentfacilities. This section includes future appointments and future orders which are active, pending or scheduled. Future Appointments This section includes appointments that were scheduled to occur 6 months from the date of the Encounter, up to a maximum of 20 appointments. The data comes from all [place] treatment facilities. Appointment Date/Time Appointment Type Appointme nt Facility Name May 18, 2023 08:00 AM AMBULATORY - REHAB MEDICIN E [facility] [place] [facility] June 20, 2023 09:00 AM AMBULATORY - MEDICINE [facility] [place] [facility] Jul 26, 2023 10:30 AM AMBULATORY - NONE [facility] [place] [facility] Jul 26, 2023 11:00 AM AMBULATORY - PSYCHIATRY [facility] [place] [facility] Jul 26, 2023 11:30 AM AMBULATORY - NONE [facility] [place] [facility] Aug 08, 2023 08:30 AM AMBULATORY - PSYCHIATRY [facility] [place] [facility] Aug 22, 2023 11:30 AM [facility] Sep 26, 2023 09:00 AM [facility] Oct 21, 2023 09:00 AM [facility] Oct 25, 2023 10:00 AM AMBULATORY - NONE [facility] Lab Results: +/- 30 days of the encounter This section includes the Chemistry and Hematology Lab Results on record with PR for the patient. Radiology Reports and Pathology Reports are provided separately, in subsequent sections. Lab Results This section contains the Chemistry/Hematology Results that were resulted 30 days before or 30 daysafter the date of the Encounter. Date/Time Source Result Type Result - Unit Interpretation Reference Range Comment Apr 28, 2023 11:03 AM [facility] LIPID PANEL, NON FASTING Specimen Type: SERUM No comment entered. Ordering Provider: ROSHAN MESA MD Report Released Date/Time: Apr 28, 2023 10:40 AM Reporting Lab: [facility] [address] [facility] [id number] Performing Lab: [address] [address] CHOLESTEROL 183 mg/dL TRIGLYCERIDE 304 mg/dL H 0-150 LDL calculated Reflex to dLDL mg/dL 0-129 CHOL/HDL 4.9 HDL CHOLESTEROL 37 mg/dL L 40-60 LDL DIRECT 110 mg/dL Social History: Smoking Status (Most current) and Tobacco Use (All prior to encounter date) This section includes the most current, and the historical, smoking and tobacco- related health factors from the [place] facility where the Encounter took place. Current Smoking Status This section includes the most current smoking, or tobacco-related health factor, from the [place] facility where the Encounter took place. Date/Time Current Smoking Status Comment Randal hyde Oct 18, 2022 03:16 PM VA-TOBACCO QUIT 15 YRS OR MORE [facility] Tobacco Use History This section includes a history of the smoking, or tobacco-related health factors, that were collected on or before the date of the Encounter. The data comes from the [place] facility where the Encounter took place. Date/Time Smoking Status/Tobacco Use Comment F acility Oct 18, 2022 03:16 PM VA-TOBACCO QUIT 15 YRS OR MORE [facility] [place] [facility] Nov 12, 2021 10:30 AM VA-TOBACCO FORMER USER [facility] [place] [facility] Nov 12, 2021 10:30 AM VA-TOBACCO QUIT 5 TO < 15 YRS [facility] [place] [facility] Oct 01, 2020 11:02 AM VA-TOBACCO FORMER USER [facility] [place] [facility] Oct 01, 2020 11:02 AM VA-TOBACCO QUIT 15 YRS OR MORE [facility] [place] [facility] Oct 25, 2019 11:30 AM VA-TOBACCO FORMER USER [facility] [place] [facility] Oct 25, 2019 11:30 AM VA-TOBACCO QUIT 5 TO < 15 YRS [facility] [place] [facility] Sep 07, 2018 09:43 AM VA-TOBACCO FORMER USER [facility] [place] [facility] Sep 07, 2018 09:43 AM VA-TOBACCO QUIT 5 TO < 15 YRS [facility] [place] [facility] Apr 25, 2018 02:08 PM VA-TOBACCO USE DEC LINED TO ANSWER [facility] [place] [facility] Encounter Notes: All associated encounter notes This section contains the clinical notes associated to the Encounter. Date/Time Encounter Note(s) Provider Source May 05, 2023 12:00 AM NONVA CONSULT: LOCAL TITLE: COMMUNITY CARE-CONSULT RESULT NOTE STANDARD TITLE: NONVA CONSULT DATE OF NOTE: MAY 05, 2023 ENTRY DATE: AUG 12, 2023@09:52:37 AUTHOR: ZULEIKA CAR EXP COSIGNER: URGENCY: STATUS: COMPLETED VistA Imaging - Scanned Document SCANNED DOCUMENT SIGNATURE NOT REQUIRED Electronically Filed: 08/12/2023 by: ZULEIKA PORRAS [place] [facility] [place] [facility]
--- OUTSIDE RECORDS SUMMARY | 2024-02-15 17:25 | XMS_ITS | Encounter Summary ---
Author Name [facility] [place] Address [address] [place] [address] Care Team Providers Care Child Welfare Consultant Name Role Phone ROSELYN PEREZ Primary [...] [id number] NOEMI BREEN ERT PATIENT MEDICARE (WNR) MEDICARE (M) PART A Feb 13, 2019 PART A [id number] [phone] NOEMI BREEN ERT PATIENT MEDICARE (WNR) MEDICARE (M) PART B Feb 13, 2019 PART B [id number] NOEMI BREEN ERT PATIENT MEDICARE (WNR) MEDICARE (M) PART A Feb 13, 2019 PART A [id number] NOEMI BREEN ERT PATIENT MEDICARE (WNR) MEDICARE (M) PART B Feb 13, 2019 PART B [id number] NOEMI BREEN ERT PATIENT MEDICARE (WNR) MEDICARE (M) PART A Feb 13, 2019 PART A [id number] [phone] NOEMI BREEN ERT PATIENT MEDICARE (WNR) MEDICARE (M) PART B Feb 13, 2019 PART B [id number] NOEMI BREEN ERT PATIENT FOR LIFE TFL* Feb 13, 2019 [id number] NOEMI BREEN ERT PATIENT FOR LIFE SUPPLEMEN SHAI TFL Feb 13, 2019 [facility] [id number] NOEMI BREEN ERT PATIENT -FO R-LIFE DIREC T CARE Oct 05, 2022 [facility] [id number] [phone] NOEMI BREEN ERT PATIENT Selected Encounter This section includes the information on record at [place] for the Encounter. Date/Time Encounter Type Encounter Description Reason Pro vider Source May 31, 2023 12:00 AM Outpatient Encounter COMMUNITY CARE CONSULT IHE Encounter Template Text not used by [place] Plan of Treatment: Future Appointments (+ 6 months) and Future Tests (+/- 45 days) The Plan of Treatment section includes future care activities for the patient from all [place] treatmentfacilities. This section includes future appointments and future orders which are active, pending or scheduled. Future Appointments This section includes appointments that were scheduled to occur 6 months from the date of the Encounter, up to a maximum of 20 appointments. The data comes from all [place] treatment facilities. Appointment Date/Time Appointment Type Appointme nt Facility Name June 20, 2023 09:00 AM AMBULATORY - MEDICINE [place] [facility] [place] [facility] Jul 26, 2023 10:30 AM AMBULATORY - NONE [facility] [place] [facility] Jul 26, 2023 11:00 AM AMBULATORY - PSYCHIATRY [place] [facility] [place] [facility] Jul 26, 2023 11:30 AM AMBULATORY - NONE [facility] [place] [facility] Aug 08, 2023 08:30 AM AMBULATORY - PSYCHIATRY [place] [facility] [place] [facility] Aug 22, 2023 11:30 AM AMBULATORY - PSYCHIATRY [place] [facility] [place] [facility] Sep 26, 2023 09:00 AM AMBULATORY - MEDICINE [facility] [place] [facility] Oct 21, 2023 09:00 AM AMBULATORY - MEDICINE [facility] [place] [facility] Oct 25, 2023 10:00 AM AMBULATORY - NONE [facility] [place] [facility] Nov 09, 2023 09:30 AM AMBULATORY - PSYCHIATRY [place] [facility] [place] [facility] Nov 09, 2023 11:20 AM AMBULATORY - MEDICINE [place] [facility] [place] [facility] Nov 23, 2023 03:30 PM [facility] Active, Pending, and Scheduled Orders This section includes a listing of several types of active, pending, and scheduled orders, including clinic medications orders, diagnostic test orders, procedure orders and consult orders; where the start date of the order is 45 days before the date of the Encounter or 45 days after the date of theEncounter. The data comes from all [place] treatment facilities. Test Date/Time Test Type Test Details Facility Name June 20, 2023 12:00 AM Laboratory - Chemistry Order CBC AND DIFF (AUTO) BLOOD (LAV-BLOOD) [facility] [place] [facility] June 20, 2023 12:00 AM Laboratory - Chemistry Order BASIC METABOLIC PANEL (fasting) BLOOD (SST-SERUM) [facility] [place] [facility] June 20, 2023 12:00 AM Laboratory - Chemistry Order LIVER FUNCTION BLOOD (SST-SERUM) [facility] [place] [facility] June 20, 2023 12:00 AM Laboratory - Chemistry Order LIPID PANEL FASTING BLOOD (SST-SERUM) [facility] [place] [facility] June 20, 2023 12:00 AM Laboratory - Chemistry Order TSH BLOOD (SST-SERUM) [facility] [place] [facility] June 20, 2023 12:00 AM Laboratory - Chemistry Order PSA BLOOD (SST-SERUM) [facility] [place] [facility] June 20, 2023 12:00 AM Laboratory - Chemistry Order CALCIUM BLOOD (SST-SERUM) [facility] [place] [facility] June 20, 2023 12:00 AM Laboratory - Chemistry Order URINALYSIS CLEAN CATCH URINE [facility] [place] [facility] June 20, 2023 12:00 AM Laboratory - Chemistry Order VITAMIN B12 BLOOD (SST-SERUM) [facility] [place] [facility] June 20, 2023 12:00 AM Laboratory - Chemistry Order FOLATE (WROX) BLOOD (SST-SERUM) [facility] [place] [facility] [place] [facility] Social History: Smoking Status (Most current) and Tobacco Use (All prior to encounter date) This section includes the most current, and the historical, smoking and tobacco- related health factors from the [place] facility where the Encounter took place. Current Smoking Status This section includes the most current smoking, or tobacco-related health factor, from the [place] facility where the Encounter took place. Date/Time Current Smoking Status Comment Facil ity Oct 18, 2022 03:16 PM VA-TOBACCO FORMER USER [place] [facility] [place] [facility] Tobacco Use History This section includes a history of the smoking, or tobacco-related health factors, that were collected on or before the date of the Encounter. The data comes from the [place] facility where the Encounter took place. Date/Time Smoking Status/Tobacco Use Comment F acility Oct 18, 2022 03:16 PM VA-TOBACCO QUIT 15 YRS OR MORE [facility] [place] [facility] Nov 12, 2021 10:30 AM VA-TOBACCO FORMER USER [facility] [place] [facility] Nov 12, 2021 10:30 AM VA-TOBACCO QUIT 5 TO < 15 YRS [facility] [place] [facility] Oct 01, 2020 11:02 AM VA-TOBACCO FORMER USER [facility] [place] [facility] Oct 01, 2020 11:02 AM VA-TOBACCO QUIT 15 YRS OR MORE [facility] [place] [facility] Oct 25, 2019 11:30 AM VA-TOBACCO FORMER USER [facility] [place] [facility] Oct 25, 2019 11:30 AM VA-TOBACCO QUIT 5 TO < 15 YRS [facility] [place] [facility] Sep 07, 2018 09:43 AM VA-TOBACCO FORMER USER [facility] [place] [facility] Sep 07, 2018 09:43 AM VA-TOBACCO QUIT 5 TO < 15 YRS [facility] [place] [facility] Apr 25, 2018 02:08 PM VA-TOBACCO USE DEC LINED TO ANSWER [facility] [place] [facility] Encounter Notes: All associated encounter notes This section contains the clinical notes associated to the Encounter. Date/Time Encounter Note(s) Provider Source May 31, 2023 12:00 AM NONVA CONSULT: LOCAL TITLE: COMMUNITY CARE-CONSULT RESULT NOTE STANDARD TITLE: NONVA CONSULT DATE OF NOTE: MAY 31, 2023 ENTRY DATE: AUG 12, 2023@09:54:08 AUTHOR: ZULEIKA CAR EXP COSIGNER: URGENCY: STATUS: COMPLETED VistA Imaging - Scanned Document SCANNED DOCUMENT SIGNATURE NOT REQUIRED Electronically Filed: 08/12/2023 by: ZULEIKA PORRAS [facility]
--- OUTSIDE RECORDS SUMMARY | 2024-02-15 17:25 | XMS_ITS | Encounter Summary ---
Author Name [facility] [place] Organization [facility] [place] Address [address] [place] [address] Care Team Providers Care Corporate Director Talent Assessment Name Role Phone ROSELYN PEREZ Primary Care [...] [id number] NOEMI WEINBERG ERT PATIENT MEDICARE (WNR) MEDICARE (M) PART A Feb 13, 2019 PART A [id number] NOEMI WEINBERG ERT PATIENT MEDICARE (WNR) MEDICARE (M) PART B Feb 13, 2019 PART B [id number] NOEMI WEINBERG ERT PATIENT MEDICARE (WNR) MEDICARE (M) PART A Feb 13, 2019 PART A [id number] [id number] [phone] NOEMI WEINBERG ERT PATIENT MEDICARE (WNR) MEDICARE (M) PART B Feb 13, 2019 PART B [id number] [phone] NOEMI WEINBERG ERT PATIENT MEDICARE (WNR) MEDICARE (M) PART A Feb 13, 2019 PART A [id number] [phone] NOEMI WEINBERG ERT PATIENT MEDICARE (WNR) MEDICARE (M) PART B Feb 13, 2019 PART B [id number] NOEMI WEINBERG ERT PATIENT FOR LIFE TFL* Feb 13, 2019 [id number] NOEMI WEINBERG ERT PATIENT FOR LIFE SUPPLEMEN SHAI TFL Feb 13, 2019 [facility] [id number] 90 NOEMI WEINBERG ERT PATIENT -FO R-LIFE DIREC T CARE Oct 05, 2022 [facility] [id number] 90 NOEMI WEINBERG ERT PATIENT Selected Encounter This section includes the information on record at [place] for the Encounter. Date/Time Encounter Type Encounter Description Reason Pro vider Source Aug 08, 2023 09:25 AM Outpatient Encounter PSYCHOLOGICAL TESTING ROEL DOOLEY Encounter Template Text not used by [place] Plan of Treatment: Future Appointments (+ 6 months) and Future Tests (+/- 45 days) The Plan of Treatment section includes future care activities for the patient from all [place] treatmentfacilities. This section includes future appointments and future orders which are active, pending or scheduled. Future Appointments This section includes appointments that were scheduled to occur 6 months from the date of the Encounter, up to a maximum of 20 appointments. The data comes from all [place] treatment facilities. Appointment Date/Time Appointment Type Appointme nt Facility Name Aug 22, 2023 11:30 AM AMBULATORY - PSYCHIATRY [place] [facility] [place] [facility] Sep 26, 2023 09:00 AM AMBULATORY - MEDICINE [place] [facility] [place] [facility] Oct 21, 2023 09:00 AM AMBULATORY - MEDICINE [place] [facility] [place] [facility] Oct 25, 2023 10:00 AM AMBULATORY - NONE [place] [facility] [place] [facility] Nov 09, 2023 09:30 AM AMBULATORY - PSYCHIATRY [place] [facility] [place] [facility] Nov 09, 2023 11:20 AM AMBULATORY - MEDICINE [place] [facility] [place] [facility] Nov 23, 2023 03:30 PM AMBULATORY - MEDICINE [place] [facility] [place] [facility] Dec 20, 2023 02:30 PM AMBULATORY - MEDICINE [place] [facility] [place] [facility] Jan 01, 2024 02:00 PM AMBULATORY - MEDICINE [place] [facility] [place] [facility] Active, Pending, and Scheduled Orders This section includes a listing of several types of active, pending, and scheduled orders, including clinic medications orders, diagnostic test orders, procedure orders and consult orders; where the start date of the order is 45 days before the date of the Encounter or 45 days after the date of theEncounter. The data comes from all [place] treatment facilities. Test Date/Time Test Type Test Details Facility Name Aug 22, 2023 11:53 AM Consult Order COMMUNITY CARE-NEUROLOGY Cons Police Or Patrol Park Officer's Choice [place] [facility] [place] [facility] Social History: Smoking Status (Most current) and Tobacco Use (All prior to encounter date) This section includes the most current, and the historical, smoking and tobacco- related health factors from the [place] facility where the Encounter took place. Current Smoking Status This section includes the most current smoking, or tobacco-related health factor, from the [place] facility where the Encounter took place. Date/Time Current Smoking Status Comment Facil ity Oct 18, 2022 03:16 PM VA-TOBACCO FORMER USER [place] [facility] [place] [facility] Tobacco Use History This section includes a history of the smoking, or tobacco-related health factors, that were collected on or before the date of the Encounter. The data comes from the [place] facility where the Encounter took place. Date/Time Smoking Status/Tobacco Use Comment F acility Oct 18, 2022 03:16 PM VA-TOBACCO QUIT 15 YRS OR MORE [facility] [place] [facility] Nov 12, 2021 10:30 AM VA-TOBACCO FORMER USER [facility] [place] [facility] Nov 12, 2021 10:30 AM VA-TOBACCO QUIT 5 TO < 15 YRS [facility] [place] [facility] Oct 01, 2020 11:02 AM VA-TOBACCO FORMER USER [facility] [place] [facility] Oct 01, 2020 11:02 AM VA-TOBACCO QUIT 15 YRS OR MORE [facility] [place] [facility] Oct 25, 2019 11:30 AM [facility] Oct 25, 2019 11:30 AM VA-TO[facility]ACCO QUIT 5 TO < 15 YRS [facility] Sep 07, 2018 09:43 AM [facility] Sep 07, 2018 09:43 AM VA-TOBACCO QUIT 5 TO < 15 YRS [facility] Apr 25, 2018 02:08 PM VA-TOBACCO USE DEC LINED TO ANSWER [facility] Radiology Reports: +/- 30 days of [...] the Encounter. The data comes from all [place] treatment facilities. Date/Time Radiology Report Provider Source Jul 26, 2023 10:[address] PULMONARY NODULES W/O CONTRAST: NAINA WEINBERG [id number] -1955 M Exm Date: JUL 26, 2023@10:37 Req Phys: ISABELA ASENCIO Loc: CWM/NO/PACT 2 (Req'g Loc) Img Loc: NHM/CT Service: Unknown [facility] , (Case [id number] COMPLETE) CT THORAX W/O CONT (CT Detailed) CPT:75026 Reason for Study: f/u nodules Clinical History: ex smoker 5 ppd Report Status: Verified Date Reported: JUL 26, 2023 Date Verified: JUL 26, 2023 Helper Teacher E-Sig:/ES/RONNIE COLMENARES JR Report: Study: Lung cancer [...] reviewed. Secondary computer-aided detection with post-processing from [employer] is used. The lack of intravenous contrast [...] Primary Interpreting Staff: RONNIE COLMENARES JR, Radiologist (Helper Teacher) /RONNIE WOLFE JR [facility] Jul 26, 2023 10:25 AM DUPLEX SCAN: NON-INVAS. CAROTID IMAGING: NAINA WEINBERG [id number] -1955 M Exm Date: JUL 26, 2023@10:25 Req Phys: ISABELA ASENCIO Loc: CWM/NO/PACT 2 (Req'g Loc) Img Loc: ULTRASOUND Service: Unknown [facility] , (Case [id number] COMPLETE) DUPLEX SCAN: NON-INVAS. CAROTID I(US Detailed) CPT:98904 Reason for Study: look for blockage Clinical History: Report Status: Verified Date Reported: JUL 26, 2023 Date Verified: JUL 26, 2023 Helper Teacher E-Sig:/ES/RONNIE COLMENARES JR Report: Study: Carotid ultrasound. [...] Primary Interpreting Staff: RONNIE COLMENARES JR, Radiologist (Helper Teacher) /RONNIE WOLFE JR [place] [facility] Encounter Notes: All associated encounter notes This section contains the clinical notes associated to the Encounter. Date/Time Encounter Note(s) Provider Source Aug 08, 2023 09:26 AM MENTAL HEALTH DIAG NOSTIC STUDY NOTE: LOCAL TITLE: MENTAL HEALTH DIAGNOSTIC STUDY STANDARD TITLE: MENTAL HEALTH DIAGNOSTIC STUDY NOTE DATE OF NOTE: AUG 08, 2023@09:26:09 ENTRY DATE: AUG 08, 2023@09:26:09 AUTHOR: ROEL DOOLEY COSIGNER: URGENCY: STATUS: COMPLETED Generalized Anxiety Disorder, 7 items Date Given: 08/08/2023 Clinician: Roel Dooley Location: [facility]//[facility]og[facility]/psych Test/shared [place]: Naina Weinberg SSN: [id number] : [birth year] ([birth year]) Gender: Male KAIA-7 score: 9 A low score indicates the absence of anxiety, a high score indicates the presence of anxiety symptoms; the range is 0 to 21. A score of 15 or greater is considered clinically significant, meriting active treatment for anxiety. A score of 10 to 14 indicates a condition that should be carefully evaluated. Questions and Answers 1. Feeling nervous, anxious or on edge Several days 2. Not being able to stop or control worrying Several days 3. Worrying too much about different things Several days 4. Trouble relaxing More than half the days 5. Being so restless that it is hard to sit still More than half the days 6. Becoming easily annoyed or irritable Several days 7. Feeling afraid as if something awful might happen Several days Information contained in this note is based on a self-report assessment and is not sufficient to use alone for diagnostic purposes. Assessment results should be verified for accuracy and used in conjunction with other diagnostic activities and procedures. __ Geriatric Depression Scale Date Given: 08/08/2023 Clinician: Roel Dooley Location: [facility]//[facility]/psych Test/shared [place]: Naina Weinberg SSN: [id number] : [birth year] ([birth year]) Gender: Male GDS Mood Scale Score: 5 Although differing sensitivities and specificities have been obtained across studies, for clinical purposes a score greater than 5 is suggestive of depression and should warrant a follow-up interview. Scores greater than 10 almost always indicate depression. Questions and Answers 1. Are you basically satisfied with your life? Yes 2. Have you dropped many of your activities and interests? Yes 3. Do you feel that your life is empty? No 4. Do you often get bored? Yes 5. Are you in good spirits most of the time? Yes 6. Are you afraid that something bad is going to happen to you? No 7. Do you feel happy most of the time? Yes 8. Do you often feel helpless? No 9. Do you prefer to stay at home, rather than going out and doing new things? Yes 10. Do you feel you have more problems with memory than most? Yes 11. Do you think it is wonderful to be alive now? Yes 12. Do you feel pretty worthless the way you are now? No 13. Do you feel full of energy? No 14. Do you feel that your situation is hopeless? No 15. Do you think that most people are better off than you are? No Information contained in this note is based on a self-report assessment and is not sufficient to use alone for diagnostic purposes. Assessment results should be verified for accuracy and used in conjunction with other diagnostic activities and procedures. /ta/ ROEL DOOLEY,PHD PSYCHOLOGIST Signed: 08/08/2023 09:27 ROEL DOOLEY [place] [facility]
--- OUTSIDE RECORDS SUMMARY | 2024-02-15 17:25 | XMS_ITS | Encounter Summary ---
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 Role Phone ROSELYN PEREZ Primary Care [...] TRICA RE DODA [facility]NR Oct [facility], 2022 [facility] [id number] NOEMI BREEN ERT PATIENT MEDICARE (WNR) MEDICARE (M) PART B Feb 13, 2019 PART B [id number] [phone] NOEMI BREEN ERT PATIENT MEDICARE (WNR) MEDICARE (M) PART A Feb 13, 2019 PART A [id number] [phone] [id number] NOEMI BREEN ERT PATIENT MEDICARE (WNR) MEDICARE (M) PART A Feb 13, 2019 PART A [id number] NOEMI BREEN ERT PATIENT MEDICARE (WNR) MEDICARE (M) PART B Feb 13, 2019 PART B [id number] NOEMI BREEN ERT PATIENT MEDICARE (WNR) MEDICARE (M) PART A Feb 13, 2019 PART A [id number] NOEMI BREEN ERT PATIENT MEDICARE (WNR) MEDICARE (M) PART B Feb 13, 2019 PART B [id number] NOEMI BREEN ERT PATIENT FOR LIFE TFL* Feb 13, 2019 [id number] NOEMI BREEN ERT PATIENT FOR LIFE SUPPLEMEN SHAI TFL Feb 13, 2019 [facility] LIFE [id number] 90 NOEMI BREEN ERT PATIENT -FO R-LIFE DIREC T CARE Oct 05, 2022 [facility] LIFE [id number] 90 NOEMI BREEN ERT PATIENT Selected Encounter This section includes the information on record at [place] for the Encounter. Date/Time Encounter Type Encounter Description Reason Provider Source Aug 08, 2023 08:30 AM PSYCH DIAGNOSTIC EVALUATION PSYCHOLOGICAL TESTING ICD-10-CM R41.3 Other amnesia FEARING,LOURDES Zamora [facility] Encounter Template Text not used by [place] Assessments - Encounter Diagnoses This section includes the primary and secondary diagnoses documented for the Encounter. Date/Time Primary/Secondary Diagnosis Diagnosis Name Provider Source Aug 08, 2023 09:23 AM PRIMARY Other amnesia FE[facility]ING,[facility]DES [facility] [place] [facility] Aug 08, 2023 09:23 AM SECONDARY Anxiety disorder, unspecified FEARING,LOURDES Zamora [facility] Plan of Treatment: Future Appointments (+ 6 months) and Future Tests (+/- 45 days) The Plan of Treatment section includes future care activities for the patient from all [place] treatmentfacilities. This section includes future appointments and future orders which are active, pending or scheduled. Future Appointments This section includes appointments that were scheduled to occur 6 months from the date of the Encounter, up to a maximum of 20 appointments. The data comes from all [place] treatment facilities. Appointment Date/Time Appointment Type Appointme nt Facility Name Aug 22, 2023 11:30 AM [facility] [place] [facility] Sep 26, 2023 09:00 AM AMBULATORY - MEDICINE [place] [facility] [facility] Oct 21, 2023 09:00 AM AMBULATORY - MEDICINE [place] [facility] Oct 25, 2023 10:00 AM AMBULATORY - NONE [place] [facility] [place] [facility] Nov 09, 2023 09:30 AM AMBULATORY - PSYCHIATRY [place] [facility] [place] [facility] Nov 09, 2023 11:20 AM AMBULATORY - MEDICINE [place] [facility] Nov 23, 2023 03:30 PM AMBULATORY - MEDICINE [place] [facility] Dec 20, 2023 02:30 PM AMBULATORY - MEDICINE [place] [facility] Jan 01, 2024 02:00 PM [facility] [place] [facility] Active, Pending, and Scheduled Orders This section includes a listing of several types of active, pending, and scheduled orders, including clinic medications orders, diagnostic test orders, procedure orders and consult orders; where the start date of the order is 45 days before the date of the Encounter or 45 days after the date of theEncounter. The data comes from all [place] treatment facilities. Test Date/Time Test Type Test Details Facility Name Aug 22, 2023 11:53 AM Consult Order COMMUNITY CARE-NEUROLOGY Cons [employer] Scientist's Choice [facility] Social History: Smoking Status (Most current) and Tobacco Use (All prior to encounter date) This section includes the most current, and the historical, smoking and tobacco- related health factors from the [place] facility where the Encounter took place. Current Smoking Status This section includes the most current smoking, or tobacco-related health factor, from the [place] facility where the Encounter took place. Date/Time Current Smoking Status Comment Facil ity Oct 18, 2022 03:16 PM VA-TOBACCO FORMER USER [facility] Tobacco Use History This section includes a history of the smoking, or tobacco-related health factors, that were collected on or before the date of the Encounter. The data comes from the [place] facility where the Encounter took place. Date/Time Smoking Status/Tobacco Use Comment F acility Oct 18, 2022 03:16 PM [facility] Nov 12, 2021 10:30 AM VA-TOBACCO FORMER USER [facility] [place] [facility] Nov 12, 2021 10:30 AM VA-TOBACCO QUIT 5 TO < 15 YRS [facility] [place] [facility] Oct 01, 2020 11:02 AM VA-TOBACCO FORMER USER [facility] [place] [facility] Oct 01, 2020 11:02 AM VA-TOBACCO QUIT 15 YRS OR MORE [facility] [place] [facility] Oct 25, 2019 11:30 AM VA-TOBACCO FORMER USER [facility] [place] [facility] Oct 25, 2019 11:30 AM VA-TOBACCO QUIT 5 TO < 15 YRS [facility] [facility] Sep 07, 2018 09:43 AM VA-TOBACCO FORMER USER [facility] [place] [facility] Sep 07, 2018 09:43 AM VA-TOBACCO QUIT 5 TO < 15 YRS [facility] [place] [facility] Apr 25, 2018 02:08 PM VA-TOBACCO USE DEC LINED TO ANSWER [place] [facility] [facility] Radiology Reports: +/- 30 days of the [...] the Encounter. The data comes from all [place] treatment facilities. Date/Time Radiology Report Provider Source Jul 26, 2023 10:[address] PULMONARY NODULES W/O CONTRAST: NAINA BREEN [id number] -[id number] M Exm Date: JUL 26, 2023@10:37 Req Phys: ISABELA ASENCIO Loc: CWM/NO/PACT 2 (Req'g Loc) Img Loc: NHM/CT Service: Unknown [place] [facility] [place] [facility] , (Case [id number] COMPLETE) CT THORAX W/O CONT (CT Detailed) CPT:48361 Reason for Study: f/u nodules Clinical History: ex smoker 5 ppd Report Status: Verified Date Reported: JUL 26, 2023 Date Verified: JUL 26, 2023 [employer] E-Sig:/ES/RONNIE Zamora DARRIAN Report: Study: Lung cancer screening CT of [...] reviewed. Secondary computer-aided detection with post-processing from [employer] is used. The lack of intravenous contrast [...] Primary Interpreting Staff: RONNIE COLMENARES JR, Radiologist ([employer]) /EARONNIE CLARK JR [facility] Jul 26, 2023 10:25 AM DUPLEX SCAN: NON-INVAS. CAROTID IMAGING: NAINA BREEN NARESH [id number] -1955 M Exm Date: JUL 26, 2023@10:25 Req Phys: ISABELA ASENCIO Loc: CWM/NO/PACT 2 (Req'g Loc) Img Loc: ULTRASOUND Service: Unknown [facility] , (Case [id number] COMPLETE) DUPLEX SCAN: NON-INVAS. CAROTID I(US Detailed) CPT:52147 Reason for Study: look for blockage Clinical History: Report Status: Verified Date Reported: JUL 26, 2023 Date Verified: JUL 26, 2023 [employer] E-Sig:/ES/RONNIE COLMENARES JR Report: Study: Carotid ultrasound. [...] Primary Interpreting Staff: RONNIE COLMENARES JR, Radiologist ([employer]) /RONNIE WOLFE JR [facility] Encounter Notes: All associated encounter notes This section contains the clinical notes associated to the Encounter. Date/Time Encounter Note(s) Provider Source Aug 08, 2023 09:22 AM MENTAL HEALTH NOTE: LOCAL TITLE: NEUROPSYCH TESTING STANDARD TITLE: MENTAL HEALTH NOTE DATE OF NOTE: AUG 08, 2023@09:22 ENTRY DATE: AUG 08, 2023@09:22:41 AUTHOR: ANMOL RIZO COSIGNER: URGENCY: STATUS: COMPLETED [place] was seen for a neuropsychological evaluation, and was unaccompanied to the appointment. He did not appear to experience distress associated with the appointment and suicidality/homicidality was denied such that he did not present as an elevated risk to himself or others at the time. Verbal consent to the evaluation was obtained. Full report to follow. He was A+O x3. Assessment feedback is scheduled for MondayAugust 20 at 11:30 am. BILLING INFORMATION TO BE ADDED/SUBMITTED ONCE THE TREATMENT EPISODE HAS BEEN COMPLETED. /ta/ ANMOL RIZO,PHD PSYCHOLOGIST Signed: 08/08/2023 09:24 ANMOL RIZO [facility]
--- OUTSIDE RECORDS SUMMARY | 2024-02-15 17:25 | XMS_ITS | Encounter Summary ---
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 Role Phone ROSELYN PEREZ Primary Care [...] Oct 05, 2022 [facility] [id number] 90 NOEMI BREEN ERT PATIENT MEDICARE (WNR) MEDICARE (M) PART B Feb 13, 2019 PART B [id number] [phone] NOEMI BREEN ERT PATIENT MEDICARE (WNR) MEDICARE (M) PART A Feb 13, 2019 PART A [id number] NOEMI BREEN ERT PATIENT MEDICARE (WNR) MEDICARE (M) PART A Feb 13, 2019 PART A [id number] NOEMI BREEN ERT PATIENT MEDICARE (WNR) MEDICARE (M) PART B Feb 13, 2019 PART B [id number] NOEMI BREEN ERT PATIENT MEDICARE (WNR) MEDICARE (M) PART A Feb 13, 2019 PART A [id number] NOEMI BREEN ERT PATIENT MEDICARE (WNR) MEDICARE (M) PART B Feb 13, 2019 PART B [id number] NOEMI BREEN ERT PATIENT FOR LIFE TFL* Feb 13, 2019 [id number] NOEMI BREEN ERT PATIENT FOR LIFE SUPPLEMEN SHAI TFL Feb 13, 2019 FOR LIFE [id number] 90 NOEMI BREEN ERT PATIENT -FO R-LIFE DIREC T CARE Oct 05, 2022 FOR LIFE [id number] 90 NOEMI BREEN ERT PATIENT Selected Encounter This section includes the information on record at [place] for the Encounter. Date/Time Encounter Type Encounter Description Reason Pro vider Source May 19, 2023 12:00 AM Outpatient Encounter COMMUNITY CARE CONSULT IHE Encounter Template Text not used by [place] Plan of Treatment: Future Appointments (+ 6 months) and Future Tests (+/- 45 days) The Plan of Treatment section includes future care activities for the patient from all [place] treatmentfacilities. This section includes future appointments and future orders which are active, pending or scheduled. Future Appointments This section includes appointments that were scheduled to occur 6 months from the date of the Encounter, up to a maximum of 20 appointments. The data comes from all [place] treatment facilities. Appointment Date/Time Appointment Type Appointme nt Facility Name June 20, 2023 09:00 AM AMBULATORY - MEDICINE [place] [facility] Jul 26, 2023 10:30 AM AMBULATORY - NONE [place] [facility] [place] [facility] Jul 26, 2023 11:00 AM AMBULATORY - PSYCHIATRY [place] [facility] [place] [facility] Jul 26, 2023 11:30 AM AMBULATORY - NONE [facility] [place] [facility] Aug 08, 2023 08:30 AM AMBULATORY - PSYCHIATRY [place] [facility] [place] [facility] Aug 22, 2023 11:30 AM AMBULATORY - PSYCHIATRY [place] [facility] [place] [facility] Sep 26, 2023 09:00 AM AM[facility]UL[facility] - [facility] Oct 21, 2023 09:00 AM AMBULATORY - [facility]IC[facility] Oct 25, 2023 10:00 AM AMBULATORY - NONE [facility] Nov 09, 2023 09:30 AM AMBULATORY - PSYCHIATRY [facility] Nov 09, 2023 11:20 AM AMBULATORY - MEDICINE [facility] N[facility]L [facility] Active, Pending, and Scheduled Orders This section includes a listing of several types of active, pending, and scheduled orders, including clinic medications orders, diagnostic test orders, procedure orders and consult orders; where the start date of the order is 45 days before the date of the Encounter or 45 days after the date of theEncounter. The data comes from all [place] treatment facilities. Test Date/Time Test Type Test Details Facility Name June 20, 2023 12:00 AM Laboratory - Chemistry Order BASIC METABOLIC PANEL (fasting) BLOOD (SST-SERUM) [facility] June 20, 2023 12:00 AM Laboratory - Chemistry Order LIVER FUNCTION BLOOD ([facility]SERUM) [facility] June 20, 2023 12:00 AM Laboratory - Chemistry Order LIPID PANEL FASTING BLOOD (SST-SERUM) [facility] June 20, 2023 12:00 AM Laboratory - Chemistry Order CBC AND DIFF (AUTO) BLOOD (LAV-BLOOD) [facility] June 20, 2023 12:00 AM Laboratory - Chemistry Order PSA BLOOD (SST-SERUM) [facility] June 20, 2023 12:00 AM Laboratory - Chemistry Order TSH BLOOD (SST-SERUM) [facility] June 20, 2023 12:00 AM Laboratory - Chemistry Order URINALYSIS CLEAN CATCH URINE [facility] June 20, 2023 12:00 AM Laboratory - Chemistry Order CALCIUM BLOOD (SST-SERUM) [facility] June 20, 2023 12:00 AM Laboratory - Chemistry Order VITAMIN B12 BLOOD (SST-SERUM) [facility] June 20, 2023 12:00 AM Laboratory - Chemistry Order FOLATE (WROX) BLOOD (SST-SERUM) SP [facility] Lab Results: +/- 30 days of the encounter This section includes the Chemistry and Hematology Lab Results on record with [place] for the patient. Radiology Reports and Pathology Reports are provided separately, in subsequent sections. Lab Results This section contains the Chemistry/Hematology Results that were resulted 30 days before or 30 daysafter the date of the Encounter. Date/Time Source Result Type Result - Unit Interpretation Reference Range Comment Apr 28, 2023 11:03 AM [facility] LIPID PANEL, NON FASTING Specimen Type: SERUM No comment entered. Ordering Provider: ROSHAN MESA MD Report Released Date/Time: Apr 28, 2023 10:40 AM Reporting Lab: [address] [id number] Performing Lab: [address] [id number] CHOLESTEROL 183 mg/dL TRIGLYCERIDE 304 mg/dL H 0-150 LDL calculated Reflex to dLDL mg/dL 0-129 CHOL/HDL 4.9 HDL CHOLESTEROL 37 mg/dL L 40-60 LDL DIRECT 110 mg/dL Social History: Smoking Status (Most current) and Tobacco Use (All prior to encounter date) This section includes the most current, and the historical, smoking and tobacco- related health factors from the [place] facility where the Encounter took place. Current Smoking Status This section includes the most current smoking, or tobacco-related health factor, from the [place] facility where the Encounter took place. Date/Time Current Smoking Status Comment Randal ity Oct 18, 2022 03:16 PM VA-TOBACCO FORMER USER [facility] Tobacco Use History This section includes a history of the smoking, or tobacco-related health factors, that were collected on or before the date of the Encounter. The data comes from the [place] facility where the Encounter took place. Date/Time Smoking Status/Tobacco Use Comment F acility Oct 18, 2022 03:16 PM VA-TOBACCO QUIT 15 YRS OR MORE [facility] Nov 12, 2021 10:30 AM VA-TOBACCO FORMER USER [facility] [place] [facility] Nov 12, 2021 10:30 AM VA-TOBACCO QUIT 5 TO < 15 YRS [facility] [place] [facility] Oct 01, 2020 11:02 AM VA-TOBACCO FORMER USER [facility] [place] [facility] Oct 01, 2020 11:02 AM VA-TOBACCO QUIT 15 YRS OR MORE [facility] [place] [facility] Oct 25, 2019 11:30 AM VA-TOBACCO FORMER USER [facility] [place] [facility] Oct 25, 2019 11:30 AM VA-TOBACCO QUIT 5 TO < 15 YRS [facility] [place] [facility] Sep 07, 2018 09:43 AM VA-TOBACCO FORMER USER [facility] [place] [facility] Sep 07, 2018 09:43 AM VA-TOBACCO QUIT 5 TO < 15 YRS [facility] [place] [facility] Apr 25, 2018 02:08 PM VA-TOBACCO USE DEC LINED TO ANSWER [place] [facility] [place] [facility] Encounter Notes: All associated encounter notes This section contains the clinical notes associated to the Encounter. Date/Time Encounter Note(s) Provider Source May 19, 2023 12:00 AM NONVA CONSULT: LOCAL TITLE: COMMUNITY CARE-CONSULT RESULT NOTE STANDARD TITLE: NONVA CONSULT DATE OF NOTE: MAY 19, 2023 ENTRY DATE: AUG 12, 2023@09:56:05 AUTHOR: ZULEIKA CAR EXP COSIGNER: URGENCY: STATUS: COMPLETED VistA Imaging - Scanned Document SCANNED DOCUMENT SIGNATURE NOT REQUIRED Electronically Filed: 08/12/2023 by: ZULEIKA PORRAS [facility]
--- OUTSIDE RECORDS SUMMARY | 2024-02-15 17:25 | XMS_ITS | Encounter Summary ---
Author Name [facility] [place] [facility] [place] Address [address] [place] [address] Care Team Providers Care Home Health Care Coordinator Name Role Phone ROSELYN PEREZ Primary [...] TRICA RE DODA WNR Oct 05, 2022 [facility] [id number] NOEMI BREEN ERT PATIENT MEDICARE (WNR) MEDICARE (M) PART A Feb 13, 2019 PART A [id number] [phone] NOEMI BREEN ERT PATIENT MEDICARE (WNR) MEDICARE (M) PART B Feb 13, 2019 PART B [id number] NOEMI BREEN ERT PATIENT MEDICARE (WNR) MEDICARE (M) PART A Feb 13, 2019 PART A [id number] [phone] NOEMI BREEN ERT PATIENT MEDICARE (WNR) MEDICARE (M) PART B Feb 13, 2019 PART B [id number] [phone] NOEMI BREEN ERT PATIENT MEDICARE (WNR) MEDICARE (M) PART A Feb 13, 2019 PART A [id number] NEOMI BREEN ERT PATIENT MEDICARE (WNR) MEDICARE (M) PART B Feb 13, 2019 PART B [id number] [phone] NOEMI BREEN ERT PATIENT FOR LIFE TFL* Feb 13, 2019 [id number] [phone] NOEMI BREEN ERT PATIENT FOR LIFE SUPPLEMEN SHAI TFL Feb 13, 2019 FOR LIFE [id number] NOEMI BREEN ERT PATIENT -FO R-LIFE DIREC T CARE Oct 05, 2022 FOR LIFE [id number] [phone] NOEMI BREEN ERT PATIENT Selected Encounter This section includes the information on record at [place] for the Encounter. Date/Time Encounter Type Encounter Description Reason Provider Source Aug 22, 2023 11:30 AM PSYCL/NRPSYC TST PHY/QHP EA PSYCHOLOGICAL TESTING ICD-10-CM R41.3 Other amnesia FEARING,LOURDES Zamora [facility] Encounter Template Text not used by [place] Assessments - Encounter Diagnoses This section includes the primary and secondary diagnoses documented for the Encounter. 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 Appointment Date/Time Appointment Type Appointme nt Facility Name Sep 26, 2023 09:00 AM AMBULATORY - MEDICINE [place] [facility] [place] [facility] Oct 21, 2023 09:00 AM AMBULATORY - MEDICINE [place] [facility] [place] [facility] Oct 25, 2023 10:00 AM AMBULATORY - NONE [place] [facility] [place] [facility] Nov 09, 2023 09:30 AM AMBULATORY - PSYCHIATRY [place] [facility] [place] [facility] Nov 09, 2023 11:20 AM AMBULATORY - MEDICINE [place] [facility] [place] [facility] Nov 23, 2023 03:30 PM AMBULATORY - MEDICINE [place] [facility] [place] [facility] Dec 20, 2023 02:30 PM AMBULATORY - MEDICINE [place] [facility] [place] [facility] Jan 01, 2024 02:00 PM [facility]ORY [facility]INE [facility] Active, Pending, and Scheduled Orders This section includes a listing of several types of active, pending, and scheduled orders, including clinic medications orders, diagnostic test orders, procedure orders and consult orders; where the start date of the order is 45 days before the date of the Encounter or 45 days after the date of theEncounter. The data comes from all [facility]. Test Date/Time Test Type Test Details Facility Name Aug 22, 2023 11:53 AM Consult Order COMMUNITY CARE-NEUROLOGY Cons Can Worker's Choice [facility] Social History: Smoking Status (Most current) [...] 18, 2022 03:16 PM VA-TOBACCO [facility] Tobacco Use History This section includes a history of the smoking, or tobacco-related health factors, that were collected on or before the date of the Encounter. The data comes from the [place] facility where the Encounter took place. Date/Time Smoking Status/Tobacco Use Comment F acility Oct 18, 2022 03:16 PM VA-TOBACCO QUIT 15 YRS OR MORE [facility] [place] [facility] Nov 12, 2021 10:30 AM VA-TOBACCO FORMER USER [facility] [place] [facility] Nov 12, 2021 10:30 AM VA-TOBACCO QUIT 5 TO < 15 YRS [facility] [place] [facility] Oct 01, 2020 11:02 AM VA-TOBACCO FORMER USER [facility] [place] [facility] Oct 01, 2020 11:02 AM VA-TOBACCO QUIT 15 YRS OR MORE [facility] [place] [facility] Oct 25, 2019 11:30 AM VA-TOBACCO FORMER USER [facility] [place] [facility] Oct 25, 2019 11:30 AM VA-TOBACCO QUIT 5 TO < 15 YRS [facility] [place] [facility] Sep 07, 2018 09:43 AM VA-TOBACCO FORMER USER [facility] [place] [facility] Sep 07, 2018 09:43 AM VA-TOBACCO QUIT 5 TO < 15 YRS [facility] [place] [facility] Apr 25, 2018 02:08 PM VA-TOBACCO USE DEC LINED TO ANSWER [facility] [place] [facility] Radiology Reports: +/- 30 days of [...] the Encounter. The data comes from all [place] treatment facilities. Date/Time Radiology Report Provider Source Jul 26, 2023 10:[address] PULMONARY NODULES W/O CONTRAST: NAINA BREEN [id number] -1955 M Exm Date: JUL 26, 2023@10:37 Req Phys: NITISH ASENCIO Loc: CWM/NO/PACT 2 (Req'g Loc) Img Loc: NHM/CT Service: Unknown [facility] [place] [facility] , (Case [id number] COMPLETE) CT THORAX W/O CONT (CT Detailed) CPT:56126 Reason for Study: f/u nodules Clinical History: ex smoker 5 ppd Report Status: Verified Date Reported: JUL 26, 2023 Date Verified: JUL 26, 2023 Merchandise Shopper E-Sig:/ES/RONNIE COLMENARES JR Report: Study: Lung cancer [...] reviewed. Secondary computer-aided detection with post-processing from [place] is used. The lack of intravenous contrast [...] Primary Interpreting Staff: RONNIE COLMENARES JR, Radiologist (Merchandise Shopper) /EARONNIE CLARK JR [facility] Jul 26, 2023 10:25 AM DUPLEX SCAN: NON-INVAS. CAROTID IMAGING: NAINA BREEN [id number] -1955 M Exm Date: JUL 26, 2023@10:25 Req Phys: NITISH ASENCIO Loc: CWM/NO/PACT 2 (Req'g Loc) Img Loc: ULTRASOUND Service: Unknown [facility] , (Case [id number] COMPLETE) DUPLEX SCAN: NON-INVAS. CAROTID I(US Detailed) CPT:19913 Reason for Study: look for blockage Clinical History: Report Status: Verified Date Reported: JUL 26, 2023 Date Verified: JUL 26, 2023 Merchandise Shopper E-Sig:/ES/RONNIE COLMENARES JR Report: Study: Carotid ultrasound. [...] Primary Interpreting Staff: RONNIE COLMENARES JR, Radiologist (Merchandise Shopper) /RONNIE WOLFE JR [facility] Encounter Notes: All associated encounter notes This section contains the clinical notes associated to the Encounter. Date/Time Encounter Note(s) Provider Source Aug 22, 2023 11:56 AM MENTAL HEALTH NOTE: LOCAL TITLE: NEUROPSYCH TESTING STANDARD TITLE: MENTAL HEALTH NOTE DATE OF NOTE: AUG 22, 2023@11:56 ENTRY DATE: AUG 22, 2023@11:56:41 AUTHOR: ANMOL RIZO COSIGNER: URGENCY: STATUS: COMPLETED NEUROPSYCH TESTING Has ADDENDA NEUROPSYCH TESTING Has ADDENDA The provider met with the Crowley to go over assessment findings and recommendations. The was accompanied by his . The Crowley and his were provided with opportunities to ask questions. SI/HI were not ellicted in todays session and there were no indications of any increases in risk. The provider will place a neurology consult today. /ta/ ANMOL RIZO,PHD PSYCHOLOGIST Signed: 08/22/2023 11:57 08/22/2023 ADDENDUM STATUS: COMPLETED // BILLING SUMMARY // Type of Service: NEUROPSYCHOLOGICAL EVALUATION Date of Service (all codes to be submitted using the same/final date of service): 08/22/2023 JUST THE CODES: -83537 (1 UNIT) -91809 (1 UNIT) -39234 (2 UNITS) -59333 (1 UNIT) -69952 (5 UNITS) // Time Documentation // Neurobehavioral Status Exam: TOTAL TIME = 1 HOUR (82777--6 UNIT) >> 8:30-9:30 (60 minutes) on 08/08/2023 Professional Neuropsychological Testing Evaluation Services: TOTAL TIME= HOURS (27725--9 UNIT, 08171--3 UNITS) A) Intra-session clinical decision-making *1. Referral review and test selection >> 8:00-8:30 (30 minutes) on 08/08/2023 *2. Patient symptom monitoring >> none *3. Patient limitation management >> none *4. Patient behavior management >> none B) Record review/integration/report generation >> 60 minutes (1 hour) on 08/08/2023 >> 60 minutes (1 hour) on 08/11/2023 C) [1] In-person yjfr-om-plyj interpretive feedback OR [0] Telemental health htsb-ja-snhw interpretive feedback >> 30 Minutes on 08/22/2023 Test Administration and Scoring Services: TOTAL TIME= 180 MINUTES (68505--5 UNIT, 73587--5 UNITS) >> 9:30-11:30 (2 hours) on 08/08/2023 >> scoring 60 minutes (1 hour)08/11/2023 /ta/ ANMOL RIZO,PHD PSYCHOLOGIST Signed: 08/22/2023 12:02 ANMOL RIZO [facility] [place] [facility] Aug 11, 2023 10:35 AM MENTAL HEALTH CONSULT: LOCAL TITLE: CONSULT REPORT/NEUROPSYCHOLOGY STANDARD TITLE: MENTAL HEALTH CONSULT DATE OF NOTE: AUG 11, 2023@10:35 ENTRY DATE: AUG 11, 2023@10:39:22 AUTHOR: ANMOL RIZO COSIGNER: URGENCY: STATUS: COMPLETED NEUROPSYCHOLOGICAL EVALUATION REFERRAL INFORMATION: Naina Breen is a 68-year-old male who was referred for a neuropsychological evaluation by his PCP, Dr. Nitish Asencio, to determine his current cognitive and neuropsychological profile. The Crowley was unaccompanied to his appointment. BACKGROUND INFORMATION: The following information was obtained from the . Information was also obtained from the Crowley's online medical record. When asked about the reason why he is pursuing the current neuropsychological evaluation, the Crowley stated I am definitely having some memory difficulties. My will be talking to me and will remind me that we went to a restaurant, and I don't remember going to that particular place at all. I had an incident around a year ago when I woke up and didn't know where I was, and I was foggy in my head. My whole day was like that, and I just felt foggy and had a poor memory. That happened about a year ago and I thought I was having a seizure or something like that because of the fog I was in. . When asked about specific areas in which he has seen memory declines, The indicated that he has difficulties with finding the right word to say during conversations. He also indicated that at times he is prone to repeating himself and making the same statements during a conversation. He provided another example of his memory difficulties indicating I went to play guitar at a woman's house on Monday, thinking it was Monday which is the normal day we play guitar. I was really confused. I had no idea why I didn't know it was Monday and I thought it was Monday. He admitted that sometimes during a conversation he might ask the same question multiple times. The Crowley denied that he has any difficulties with frequently misplacing or losing items. He denied that he is having trouble keeping track of appointments and is not late for and/or missing engagements. He denied that he has any difficulties with getting lost in familiar places while driving. He also denied that he has any difficulties with remembering the names of close friends or family members. The discussed that he has observed cognitive difficulties occurring for approximately the past year. <<MEDICAL HISTORY>> The Crowley denied having any difficulty in completing ADLs or IDLs. The Crowley discussed that he takes his medication directly from the bottles and denied having any difficulties with missing doses. There were no prior CT or MRI scans of the head in the 's medical record for review. There were also no previous neuropsychological evaluations to review. The Crowley's medical history is positive for the following conditions: Active problems - Computerized Problem List: 1. Exposure to potentially hazardous substance 2. Joint pain in both shoulders 3. Renal cell carcinoma 4. Renal cyst 5. Multiple nodules of lung 6. Aneurysm of iliac artery 7. Pain in left knee 8. Prostate Cancer 9. Polyp Colon 10. HTN - Hypertension 11. Hyperlipidemia 12. Benign neoplasm of adrenal gland 13. Nocturia 14. Erectile dysfunction 15. Anxiety 16. Alcohol Abuse He currently takes the following medications: Active VA Medications 1) Amlodipine Besylate 10mg Tab With Grapefruit Juice 2) Aripiprazole 20mg Tab 3) Atorvastatin Calcium 80mg Tab 4) Diclofenac Na 1% Top Gel 5) Losartan 25mg Tab 6) Venlafaxine Hcl 75mg 24hr Sa Cap Active Non-Va Medications 1) Non-Va Multivitamin Cap/Tab 2) Non-Va Other Cap/Tab Areds Eye Vitamins The Crowley denied any changes any appetite and/or feeding behaviors. The Crowley reported that he suffered one head injury in his life stating, When I joined the , I fell off a block wall and it knocked me out and I was in hospital for the night. No long-term changes as far as I know. Only the head injury but nothing skilled nursing happened to my thinking as far as I can tell. The denied that he has ever suffered a stroke, seizure or heart attack, as far as he is aware. He still questions whether he had a stroke or seizure approximately one year ago on the day he felt like he was in a fog. Regarding a family history of dementia, the Crowley denied that anyone in his family was ever diagnosed with Alzheimer's disease or any other type of dementia. When asked about sleep patterns the Crowley stated I get seven to eight hours of sleep per night, and I don't have any difficulties falling asleep or staying asleep. I feel well rested and refreshed during the day after I wake up. <<MENTAL HEALTH>> The reported that he has historically struggled with symptoms of depression and anxiety. He stated I take medications for anxiety and depression and before I took those it was really bad. I have been taking the medications for five to six years. I see Dr. Mesa at the [facility] every 3 months for medication management. The discussed having severe panic attacks prior to beginning to take psychotropic medications. The denied that he has ever engagde in psychotherapy. He denied that he has ever been psychiatrically hospitalized. <<RISK>> The denied that he currently has any SI/HI. <<ALCOHOL, DRUGS, TOBACCO>> The denied using tobacco products currently. He discussed that he uses cannabis on a daily basis. He stated I smoke marijuana on a daily basis. I grow it and I smoke around noon time every day and I smoke by myself. I just take a couple of tokes at a time. I have been doing that for nine years since leaving the . He denied using any other substances. When asked about alcohol use the reported I have a glass of wine every in a while and it is about three glasses per week. I have been in that pattern for a couple of years. I don't drink beer and I used to drink quite a bit of beer, but I wouldn't call it alcoholism. I would have a couple to three beers in the past at a sitting. If I was friends or family at a republican, I would have more. I was in that pattern from my early fifties until I was [age]. I stopped drinking completely for nineteen years and I used to interactive web developer a sikh. <<SOCIAL>> The reported that he currently lives with his and son in a single- family home in [place]. The Crowley's younger son from an opiate overdose. He reported that he has three siblings and also that his mother lives with one of his siblings. He has contact with his family on an infrequent basis. He discussed that his highest education level is a year and a half of college. He discussed going to [employer] in [place] for a year and then to [employer] for six months. 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 He discussed retiring from the [employer] in 2014 and currently receives his pension and social security. BEHAVIORAL OBSERVATIONS: The arrived on time to his appointment. He was casually dressed, neatly groomed, and appeared to be younger than his stated age of 68. The demonstrated intact insight into his cognitive problems when asked questions about his memory and thought processes. He appeared to answer questions that were asked of him fully and honestly. Speech was fluent, well-articulated, without any evidence of errors in grammar or paraphasias. In addition, speech was normal for rate, rhythm, and prosody. The did not demonstrate difficulties with word finding during the clinical interview. He also did not demonstrate difficulties with recalling details about his history and background. Comprehension appeared to be intact; he was able to follow both simple and complex commands and appeared to understand the context and meaning of questions posed to him. The demonstrated a euthymic mood and congruent affect. The denied any current suicidal and/or homicidal thoughts or ideation. The Crowley was oriented to time, place, person and date. He was able to recall the current President (Bettie), the President before him (Velma). Overall, The Crowley was pleasant and fully cooperative throughout the evaluation, and consistently appeared to put forth his best efforts. He completed tasks in a variable manner, some with relative ease, and others with a great deal of difficulty. Because of the Crowley's perceived effort during testing, these test results are thought to represent a valid and accurate appraisal of his current level of neurocognitive functioning. TESTS ADMINISTERED: Test of Premorbid Functioning (TOPF), Tamela-Maloney Executive Functioning System (D-KEFS; [place] Making subtest and Verbal Fluency subtest),Shantanu Memory Scale- 4th Edition (WMS-IV; Logical Memory I & II subtests), Shantanu Adult Intelligence Scale-4th Edition (WAIS-IV; Processing Speed and Working Memory Indices), [place] Verbal Learning Test-Third Edition, Short Form (CVLT-3 SF), Martín-Osterrieth complex figure, Milo Naming Test, The Clock Drawing Test, Generalized Anxiety Disorder-Seven Item (KAIA-7), Geriatric Depression Scale. NEUROPSYCHOLOGICAL TEST RESULTS: PREMORBID INTELLECTUAL FUNCTION: During the current neuropsychological evaluation, The 's baseline level of general intellectual functioning was estimated to be in the Average range on the TOPF. ATTENTION/CONCENTRATION: On the WAIS-IV Working Memory Index, The 's ability to multi-task and to mentally manipulate information for short periods of time was intact and in the Average range. Specifically, his performance on a measure of simple auditory attention involving the repetition of number strings in forward, backward, and sequential order was in the High Average range when compared with same-age peers (Digit Span, ss = 12). He scored in the Average range on the Arithmetic subtest (ss = 10) and did not demonstrate any difficulties on this task of mental arithmetic. AUDITORY/VERBAL MEMORY: The Crowley's ability to learn and remember verbal information (a short list of 9 words) was within the Extremely Low range following the first presentation of the list (trial 1= 2 words). The Crowley demonstrated improvement after the benefit of repetition, and on the fourth learning trial he scored within the Low Average range (trial 4 = 6 words). The total number of words that he was able to encode over the four encoding trials was in the Extremely Low range (Trials 1-4 = 16). He was able to recall four of the words after a 30 second delay, a performance that is within the Borderline range. After a ten-minute delay, the was able to recall four of the words, a performance that is in the Low Average range. When provided with a semantic/categorical cue his performance was minimally improved and he was able to produce five words, which places him in the Low Average range. During the multiple-choice recognition format, the selected seven of the nine words from the list, which is in the Low Average range. He included one of the intrusion words (i.e., word not from the list) during the recognition trial which was in the Average range. He did not make a significant number of intrusions or repetitions over the course of the recall trials. The was also read two short passages and was asked to recall as many details as he could immediately and following a long delay. On the immediate recall task, the Crowley's performance was in the Low Average range. He scored in the Extremely Low range on the delayed recall task. On the recognition task, his performance was also in the Borderline to Extremely Low range. These results suggest that The is demonstrating weaknesses in auditory memory for both rote verbal information, as well as information that is presented in story form. VISUAL MEMORY/VISUOSPATIAL SKILLS: The 's visual-constructional abilities, assessed by asking him to copy a complex geometric figure, were weak. The Crowley utilized a detail-oriented approach, drawing each individual component of the figure in a piecemeal fashion. He scored within normal limits on the Copy task. When asked to draw the figure immediately after copying it, from memory, his performance was within the Low Average range as he was able to recall minimal details of the figure. When asked to draw the figure following a delay, the 's performance was again in the Low Average range. He scored in the Average range on the recognition portion of this task and the benefit of recognition and cuing improved his visual memory. EXECUTIVE FUNCTIONING: On tests of executive functioning, which involve problem solving, abstraction, and initiation, and inhibition, The 's performance was variable. On the WAIS-IV processing speed subtests, the scored in the High Average range on the Coding subtest and in the Average on the Symbol Search subtest. His overall score on the WAIS-IV Processing Speed Index was in the Average range. When asked to rapidly produce words beginning with a particular letter ('F'), he scored in the Low Average range. When asked to generate words belonging to a particular category (supermarket items), he scored within the Low Average range. The Crowley's phonemic and semantic verbal fluency abilities are a weakness for him. On the clock drawing test, which is thought to be particularly sensitive to executive dysfunction, The Crowley demonstrated intact abilities when completing this task. His numbers demonstrated intact spacing and placement on the face of the clock. He was also able to set the hands of the clock to the correct time. He demonstrated intact working memory and organization/planning during this task. The was also given the D-KEFS [place] Making Test and he scored in the Superior range on the Visual Scanning task. He scored in the High Average range respectively on the Number Sequencing and Letter Sequencing tasks. He scored in the Average range on the Letter-Number Sequencing task, which is the most difficult task in this subtest. His score on the Motor Speed task was in the Average range. These results indicate that the Crowley's working memory and processing speed abilities are intact, and these are commensurate with his performance on the WAIS-IV Working Memory and Processing Speed indices. SPEECH AND LANGUAGE FUNCTIONING: The displayed an intact performance on tests of language abilities. He was able to follow both simple and complex commands that required multiple steps. He did not have any difficulty with the repetition task, correctly repeating both simple and complex statements. He was able to correctly identify 53 out of 60 pictures on the Milo Naming Test and his performance on this task of confrontational naming was within normal limits. ASSESSMENT OF MOOD: GDS and KAIA-7 Mr. Breen completed the GDS, a self-report questionnaire that measures an individual's levels of depression. Mr. Breen earned a score of 5/15, indicating that he is experiencing clinically significant levels of depression in the MILD to MODERATE range. Mr. Breen was also given the KAIA-7, a self-report questionnaire that measures an individual's levels of anxiety. Mr. Breen earned a score of 9, indicating that he is experiencing clinically significant levels of anxiety in the MINIMAL range. SUMMARY: Crowleyjennifer Breen is a 68-year-old male who was referred for a neuropsychological evaluation by his PCP, Dr. Nitish Asencio, to determine his current cognitive and neuropsychological profile. The Crowley was unaccompanied to his appointment. Neuropsychological testing revealed that the performed within normal limits on measures of processing speed, working memory, and language abilities/confrontational naming. He demonstrated weaknesses on measures of rote verbal memory, episodic memory (memory for stories), visual memory, and semantic and phonemic verbal fluency. On surveys of psychological functioning, his pattern of responding revealed that he is experiencing symptoms of depression in the mild to moderate range. He did not endorse experiencing significant levels of anxiety. 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 The disorder is classified as mild given that he is still able to complete all ADLs and iADLs on his own. Significant declines in the ability to learn, retain, and recall novel verbal memory information is consistent with a diagnosis of a progressive dementia disease process such as Alzheimer's disease, and thus cannot be ruled out at this time. However, given the patient's history of cerebrovascular risk factors such as hypertension and hyperlipidemia, we cannot rule out that these declines may be due, at least in part, to microvascular and large vessel changes to frontal- subcortical brain regions. It is highly recommended that the Crowley have an MRI of the brain to help rule out cortical and/or subcortical changes that may be contributing to his cognitive difficulties. The discussed having a day that he felt like he was in a fog and that this coincided with his cognitive changes. MRI imaging of the brain would be helpful in determining if the Crowley has suffered any strokes or mini-strokes that are contributing to his cognitive difficulties. It is also important to note that given the 's elevated levels of depression, it is likely that symptoms related to this disorder exacerbate his cognitive difficulties. He also uses cannabis on a daily basis which may have a significant negative impact on his memory and cognitive functioning. 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 2.A follow-up with neurology is strongly advised to better establish etiology and to identify prognosis and possible interventions, including pharmacological options. 3.It remains critically important that the maintain his compliance in taking all of his prescribed medications. Noncompliance in following prescribed medication regimens could result in further cognitive declines. 4.Given the level of decline in the 's memory, it would be helpful if the establish a consistent and routine schedule that he can follow each day. Behaviors that are repetitive and routine have been found to increase cognitive capacities and may also help reduce further memory deficits. 5.Ongoing monitoring of vascular risk factors is important in order to preserve his health and cognitive functioning. It is well known that cardiovascular problems such as hypertension and hyperlipidemia may significantly impact cognitive functioning. Medication management and stability in mediation regimen will also be beneficial in helping the avoid further cognitive declines. 6.The has impairments in verbal recall and therefore complex information should be broken down into basic, and simple steps. Tasks involving multiple steps, or complex directions, should be reduced to single steps that are completed one at a time. 7.The Crowley is encouraged to stay as physically active as possible, which will aid in cardiovascular health, and help avoid further cognitive decline. It is important that the Crowley begin these physical activities slowly, but then gradually increasing them to a level that feels comfortable to him. Exercise has also been shown to have a positive effect on mood and overall mental health. 8.The Crowley is encouraged to engage in activities that involve critical thinking and problem solving, such as crossword puzzles, word-find games, and Sudoku. It is well known that activities such as these may help reduce risk for cognitive declines. 9.It is important that the Crowley maintain healthy diet and sleep patterns, which can also be protective in staving off future cognitive declines. 10.If the Crowley were to experience any future cognitive changes, providers should consider referring him for a follow-up neuropsychological evaluation using the current test data as a cognitive baseline. Thank you for referring this for a neuropsychological evaluation. If there are any questions about the information contained in this report, please contact Dr. Anmol Rizo at [phone] ex.[phone]. /es/ ANMOL RIZO,PHD PSYCHOLOGIST Signed: 08/11/2023 10:42 Receipt Acknowledged By: 08/14/2023 18:42 /es/ Nitish Asencio MD Staff Physician 08/25/2023 08:58 /es/ JAKUB MESA JR, MD STAFF PSYCHIATRIST SALLIE,ANMOL [facility]CK [facility]
--- OUTSIDE RECORDS SUMMARY | 2024-02-15 17:25 | XMS_ITS | Encounter Summary ---
Author Name [facility] [place] [facility] [facility] [place] Address [address] [place] [address] Care Team Providers Care [employer] Helper Name Role Phone ROSELYN PEREZ Primary [...] TRICA RE DODA WNR Oct 05, 2022 [facility] [id number] NOEMI BREEN ERT PATIENT MEDICARE (WNR) MEDICARE (M) PART B Feb 13, 2019 PART B [id number] [phone] HUNTERNOEMI SMALLWOOD ERT PATIENT MEDICARE (WNR) MEDICARE (M) PART A Feb 13, 2019 PART A [id number] NOEMI BREEN ERT PATIENT MEDICARE (WNR) MEDICARE (M) PART A Feb 13, 2019 PART A [id number] [phone] NOEMI BREEN ERT PATIENT MEDICARE (WNR) MEDICARE (M) PART B Feb 13, 2019 PART B [id number] [phone] NOEMI BREEN ERT PATIENT MEDICARE (WNR) MEDICARE (M) PART A Feb 13, 2019 PART A [id number] NOEMI BREEN ERT PATIENT MEDICARE (WNR) MEDICARE (M) PART B Feb 13, 2019 PART B [id number] [phone] NOEMI BREEN ERT PATIENT FOR LIFE TFL* Feb 13, 2019 [id number] NOEMI BREEN ERT PATIENT FOR LIFE SUPPLEMEN SHAI TFL Feb 13, 2019 [facility] [id number] NOEMI BREEN ERT PATIENT -FO R-LIFE DIREC T CARE Oct 05, 2022 [facility] [id number] [phone] NOEMI BREEN ERT PATIENT Selected Encounter This section includes the information on record at [place] for the Encounter. Date/Time Encounter Type Encounter Description Reason Provider Source Jul 26, 2023 11:00 AM OFFICE O/P EST SF [facility] - IND ICD-10-CM F41.9 Anxiety disorder, unspecified CARSON MESA MD [facility] Encounter Template Text not used by [place] Assessments - Encounter Diagnoses This section includes the primary and secondary diagnoses documented for the Encounter. Date/Time Primary/Secondary Diagnosis Diagnosis Name Provider Source Jul 26, 2023 11:09 AM PRIMARY Anxiety disorder, unspecified CARSON MESA MD [facility] Plan of Treatment: Future Appointments (+ 6 months) and Future Tests (+/- 45 days) The Plan of Treatment section includes future care activities for the patient from all [place] treatmentfacilities. This section includes future appointments and future orders which are active, pending or scheduled. Future Appointments This section includes appointments that were scheduled to occur 6 months from the date of the Encounter, up to a maximum of 20 appointments. The data comes from all [place] treatment facilities. Appointment Date/Time Appointment Type Appointme nt Facility Name Aug 08, 2023 08:30 AM AMBULATORY - PSYCHIATRY [facility] Aug 22, 2023 11:30 AM AMBULATORY - PSYCHIATRY [facility] Sep 26, 2023 09:00 AM AM[facility] [place] [facility] Oct 21, 2023 09:00 AM AMBULATORY - MEDICINE [facility] [place] [facility] Oct 25, 2023 10:00 AM AMBULATORY - NONE [facility] [place] [facility] Nov 09, 2023 09:30 AM AMBULATORY - PS[facility]CHIATRY [facility] [place] [facility] Nov 09, 2023 11:20 AM AMBULATORY - MEDICINE [facility] [place] [facility] Nov 23, 2023 03:30 PM AMBULATORY - MEDICINE [facility] [place] [facility] Dec 20, 2023 02:30 PM AMBULATORY - MEDICINE [facility] [place] [facility] Jan 01, 2024 02:00 PM [facility] [place] [facility] [place] [facility] Active, Pending, and Scheduled Orders This section includes a listing of several types of active, pending, and scheduled orders, including clinic medications orders, diagnostic test orders, procedure orders and consult orders; where the start date of the order is 45 days before the date of the Encounter or 45 days after the date of theEncounter. The data comes from all [place] treatment facilities. Test Date/Time Test Type Test Details Facility Name June 20, 2023 12:00 AM Laboratory - Chemistry Order BASIC METABOLIC PANEL (fasting) BLOOD (SST-SERUM) [facility] [place] [facility] June 20, 2023 12:00 AM Laboratory - Chemistry Order LIVER FUNCTION [facility] June 20, 2023 12:00 AM Laboratory - Chemistry Order LIPID PANEL FASTING BLOOD (SST-SERUM) [facility] [place] [facility] June 20, 2023 12:00 AM Laboratory - Chemistry Order CBC AND DIFF (AUTO) BLOOD (LAV-BLOOD) [facility] [place] [facility] June 20, 2023 12:00 AM Laboratory - Chemistry Order PSA BLOOD (SST-SERUM) [facility] [place] [facility] June 20, 2023 12:00 AM Laboratory - Chemistry Order TSH BLOOD (SST[facility]SERUM[facility] June 20, 2023 12:00 AM Laboratory - Chemistry Order URINALYSIS CLEAN CATCH URINE [facility] [place] [facility] June 20, 2023 12:00 AM Laboratory - Chemistry Order CALCIUM BLOOD (SST-SERUM) [place] [facility] [place] [facility] June 20, 2023 12:00 AM Laboratory - Chemistry Order VITAMIN B12 BLOOD (SST-SERUM) [place] [facility] [place] [facility] June 20, 2023 12:00 AM Laboratory - Chemistry Order FOLATE (WROX) BLOOD (SST-SERUM) [facility] [place] [facility] [place] [facility] Aug 22, 2023 11:53 AM Consult Order [facility] Cons Prevention Rn's Choice [place] [facility] [place] [facility] Social History: Smoking Status (Most current) and Tobacco Use (All prior to encounter date) This section includes the most current, and the historical, smoking and tobacco- related health factors from the [place] facility where the Encounter took place. Current Smoking Status This section includes the most current smoking, or tobacco-related health factor, from the [place] facility where the Encounter took place. Date/Time Current Smoking Status Comment Facil ity Oct 18, 2022 03:16 PM VA-TOBACCO FORMER USER [place] [facility] [place] [facility] Tobacco Use History This section includes a history of the smoking, or tobacco-related health factors, that were collected on or before the date of the Encounter. The data comes from the [place] facility where the Encounter took place. Date/Time Smoking Status/Tobacco Use Comment F acility Oct 18, 2022 03:16 PM VA-TOBACCO QUIT 15 YRS OR MORE [place] [facility] [place] [facility] Nov 12, 2021 10:30 AM VA-TOBACCO FORMER USER [facility] [place] [facility] Nov 12, 2021 10:30 AM VA-TOBACCO QUIT 5 TO < 15 YRS [facility] [place] [facility] Oct 01, 2020 11:02 AM VA-TOBACCO FORMER USER [facility] [place] [facility] Oct 01, 2020 11:02 AM VA-TOBACCO QUIT 15 YRS OR MORE [facility] [place] [facility] Oct 25, 2019 11:30 AM VA-TOBACCO FORMER USER [facility] [place] [facility] Oct 25, 2019 11:30 AM VA-TOBACCO QUIT 5 TO < 15 YRS [facility] [place] [facility] Sep 07, 2018 09:43 AM [place]TO[place]AC[place] FORMER USER [facility] Sep 07, 2018 09:43 AM VA-TOBACCO QUIT 5 TO < 15 YRS [facility] Apr 25, 2018 02:08 PM VA-TOBACCO USE DEC LINED TO ANSWER [facility] Radiology Reports: +/- 30 days of the [...] the Encounter. The data comes from all [place] treatment facilities. Date/Time Radiology Report Provider Source Jul 26, 2023 10:[address] PULMONARY NODULES W/O CONTRAST: NAINA BREEN [id number] -[id number] M Exm Date: JUL 26, 2023@10:37 Req Phys: ISABELA ASENCIO Loc: CWM/NO/PACT 2 (Req'g Loc) Img Loc: NHM/CT Service: Unknown [facility] , (Case [id number] COMPLETE) CT THORAX W/O CONT (CT Detailed) CPT:98271 Reason for Study: f/u nodules Clinical History: ex smoker 5 ppd Report Status: Verified Date Reported: JUL 26, 2023 Date Verified: JUL 26, 2023 Cardiology Nurse Practitioner E-Sig:/ES/RONNIE COLMENARES JR Report: Study: Lung cancer [...] reviewed. Secondary computer-aided detection with post-processing from [facility] is used. The lack of intravenous contrast [...] Primary Interpreting Staff: RONNIE COLMENARES JR, Radiologist (Cardiology Nurse Practitioner) /RONNIE WOLFE JR [place] [facility] [place] [facility] Jul 26, 2023 10:25 AM DUPLEX SCAN: NON-INVAS. CAROTID IMAGING: NAINA BREEN [id number] -[id number] M Exm Date: JUL 26, 2023@10:25 Req Phys: ISABELA ASENCIO Loc: CWM/NO/PACT 2 (Req'g Loc) Img Loc: ULTRASOUND Service: Unknown [facility] , (Case [id number] COMPLETE) DUPLEX SCAN: NON-INVAS. CAROTID I(US Detailed) CPT:75899 Reason for Study: look for blockage Clinical History: Report Status: Verified Date Reported: JUL 26, 2023 Date Verified: JUL 26, 2023 Cardiology Nurse Practitioner E-Sig:/ES/RONNIE COLMENARES JR Report: Study: Carotid ultrasound. [...] Primary Interpreting Staff: RONNIE COLMENARES JR, Radiologist (Cardiology Nurse Practitioner) /RONNIE WOLFE JR [facility] Encounter Notes: All associated encounter notes This section contains the clinical notes associated to the Encounter. Date/Time Encounter Note(s) Provider Source Jul 26, 2023 08:27 AM PSYCHIATRY NOTE: LOCAL TITLE: PSYCHIATRY/FOLLOW-UP NOTE STANDARD TITLE: PSYCHIATRY NOTE DATE OF NOTE: JUL 26, 2023@08:27 ENTRY DATE: JUL 26, 2023@08:27:41 AUTHOR: JAKUB MESA EXP COSIGNER: URGENCY: STATUS: COMPLETED Medications were reconciled with and he was [...] [place], 67 yo, male who [facility] 20 minutes for medication management. Two identifiers were used. CC: Good. They seem to be working. No panic attacks in over a year. Souleymane has been taking a memory pill (Prevagen) for a year as reports souleymane has had some problems with his memory. He is doing well on current medications. He returned to [place] in September 2022 and bought a house to be near his son. Some alcohol, a wine once in a while and I smoke marijuana . Sleep is good, I get about 7-8 hours of sleep and night and appetite is, good, too good . No adverse side effects from current medications were reported, no. Mood is stable, status quo. Souleymane has been on abilify for quite a while and he is stable on it. Discussed continuation of present medications as above. Patient education given including not taking anyone else's medications or giving his medications to anyone else and to protect his medications from theft and children. Vet is agreeable. MSE: NAINA BREEN is an [...] Plan: Continue present medications as above. Encouraged vet to take medications as prescribed. Labs pending. RTC in 2-3 months or earlier if needed. BMI>30/>24.99 High Risk: Patient declines to discuss weight management. Patient declined weight discussion. Discussed revisiting at a future visit. /ta/ JAKUB MESA JR, MD STAFF PSYCHIATRIST Signed: 07/26/2023 11:09 JAKUB MESA MD [facility]
--- OUTSIDE RECORDS SUMMARY | 2024-02-15 17:26 | XMS_ITS | Encounter Summary ---
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 Name Role Phone ROSELYN PEREZ Primary Care [...] TRICA RE DODA WNR Oct 05, 2022 [facility] [id number] NOEMI BREEN ERT PATIENT MEDICARE (WNR) MEDICARE (M) PART A Feb 13, 2019 PART A [id number] HUNTERNOEMI SMALLWOOD ERT PATIENT MEDICARE (WNR) MEDICARE (M) PART B Feb 13, 2019 PART B [id number] NOEMI BREEN ERT PATIENT MEDICARE (WNR) MEDICARE (M) PART A Feb 13, 2019 PART A [id number] [phone] NOEMI BREEN ERT PATIENT MEDICARE (WNR) MEDICARE (M) PART B Feb 13, 2019 PART B [id number] [phone] NOEMI BREEN ERT PATIENT MEDICARE (WNR) MEDICARE (M) PART A Feb 13, 2019 PART A [id number] NOEMI BREEN ERT PATIENT MEDICARE (WNR) MEDICARE (M) PART B Feb 13, 2019 PART B [id number] NOEMI BREEN ERT PATIENT FOR LIFE TFL* Feb 13, 2019 [id number] NOEMI BREEN ERT PATIENT FOR LIFE SUPPLEMEN SHAI TFL Feb 13, 2019 [facility] [id number] NOEMI BREEN ERT PATIENT -FO R-LIFE DIREC T CARE Oct 05, 2022 [facility] [id number] NOEMI BREEN ERT PATIENT Selected Encounter This section includes the information on record at [place] for the Encounter. Date/Time Encounter Type Encounter Description Reason Pro vider Source Sep 04, 2023 08:51 AM Outpatient Encounter ADMIN PAT ACTIVTIES (MASNONCT) IHE Encounter Template Text not used by [facility] Plan of Treatment: Future Appointments (+ 6 months) and Future Tests (+/- 45 days) The Plan of Treatment section includes future care activities for the patient from all [facility] treatmentfacilities. This section includes future appointments and future orders which are active, pending or scheduled. Future Appointments This section includes appointments that were scheduled to occur 6 months from the date of the Encounter, up to a maximum of 20 appointments. The data comes from all [place] treatment facilities. Appointment Date/Time Appointment Type Appointme nt Facility Name Sep 26, 2023 09:00 AM AMBULATORY - MEDICINE [facility] [place] [facility] Oct 21, 2023 09:00 AM AMBULATORY - MEDICINE [facility] [place] [facility] Oct 25, 2023 10:00 AM AMBULATORY - NONE [facility] [place] [facility] Nov 09, 2023 09:30 AM AMBULATORY - PSYCHIATRY [facility] [place] [facility] Nov 09, 2023 11:20 AM AMBULATORY [facility] MEDICINE [facility] [place] [facility] Nov 23, 2023 03:30 PM AMBULATORY - MEDICINE [facility] [place] [facility] Dec 20, 2023 02:30 PM AMBULATORY - MEDICINE [facility] Jan 01, 2024 02:00 PM AMBULATORY - MEDICINE [facility] Active, Pending, and Scheduled Orders This section includes a listing of several types of active, pending, and scheduled orders, including clinic medications orders, diagnostic test orders, procedure orders and consult orders; where the start date of the order is 45 days before the date of the Encounter or 45 days after the date of theEncounter. The data comes from all [facility] treatment facilities. Test Date/Time Test Type Test Details Facility Name Aug 22, 2023 11:53 AM Consult Order [facility]-NEUROLOGY Cons Napping Machine Operator's Choice [facility] Lab Results: +/- 30 days of the encounter This section includes the Chemistry and Hematology Lab Results on record with [facility] for the patient. Radiology Reports and Pathology Reports are provided separately, in subsequent sections. Lab Results This section contains the Chemistry/Hematology Results that were resulted 30 days before or 30 daysafter the date of the Encounter. Date/Time Source Result Type Result - Unit Interpretation Reference Range Comment Oct 02, 2023 08:57 AM [facility] VITAMIN B-1 (THIAMINE)-(QU) Specimen Type: PLASMA Comment: Vitamin supplementation within 24 hours prior to blood draw may affect the accuracy of the results. This test was developed and its analytical performance characteristics have been determined by [facility] [place], [place]. It has not been cleared or approved by the U.S. Food and Drug Administration. This assay has been validated pursuant to the CLIA regulations and is used for clinical purposes. Test Performed by [facility], [facility], [address] [place] [address] Angus Mendez M.D., Ph.D., Director of Laboratories , CLIA [id number] TEST PERFORMED AT: , Ordering Provider: ISABELA ASENCIO Report Released Date/Time: Sep 16, 2023 06:52 PM Reporting Lab: [address] [address] Performing Lab: [facility] [address] [facility], [address] [place] [id number] VITAMIN B-1 (THIAMINE)-(Q U) 22 nmol/L 8-30 Oct 02, 2023 08:57 AM [facility] FOLATE (WROX) Specimen Type: SERUM No comment entered. Ordering Provider: ISABELA ASENCIO Report Released Date/Time: Sep 16, 2023 06:52 PM Reporting Lab: [facility] [address] [facility] [address] Performing Lab: [facility] [address] [facility] [address] FOLATE (WROX) 9.92 ng/mL >5.2 Oct 02, 2023 08:57 AM [facility] TSH Specimen Type: SERUM No comment entered. Ordering Provider: ISABELA ASENCIO Report Released Date/Time: Sep 16, 2023 06:52 PM Reporting Lab: [facility] [address] [facility] [address] Performing Lab: [facility] [address] [facility] [address] TSH 0.78 u[IU]/mL 0.35-5.00 Oct 02, 2023 08:57 AM [facility] LIPID PANEL FASTING Specimen Type: SERUM No comment entered. Ordering Provider: ISABELA ASENCIO Report Released Date/Time: Sep 16, 2023 06:52 PM Reporting Lab: [facility] [address] [facility] [address] Performing Lab: [facility] [address] [facility] [address] CHOLESTEROL 185 mg/dL TRIGLYCERIDE 272 mg/dL H 0-150 LDL calculated 96 mg/dL 0-129 CHOL/HDL 5.3 HDL CHOLESTEROL 35 mg/dL L 40-60 Oct 02, 2023 08:57 AM [facility] PSA Specimen Type: SERUM No comment entered. Ordering Provider: ISABELA ASENCIO Report Released Date/Time: Sep 16, 2023 06:52 PM Reporting Lab: [facility] [address] [facility] [address] Performing Lab: [facility] [address] [facility] [address] PSA 0.53 ng/mL 0.00-4.00 Oct 02, 2023 08:57 AM [facility] LIVER FUNCTION Specimen Type: SERUM No comment entered. Ordering Provider: ISABELA ASENCIO Report Released Date/Time: Sep 16, 2023 06:52 PM Reporting Lab: [facility] [address] [facility] [address] Performing Lab: [address] [address] PROTEIN,TOTAL 6.9 g/dL 6.0-8.3 ALBUMIN 4.0 g/dL 3.5-5.0 ALKALINE PHOSPHATASE 86 U/L 40-150 AST 13 U/L 5-34 ALT 21 U/L BILIRUBIN, TOTAL 0.8 mg/dL 0.2-1.2 Oct 02, 2023 08:57 AM [facility] BASIC METABOLIC PANEL (fasting) Specimen Type: SERUM No comment entered. Ordering Provider: ISABELA ASENCIO Report Released Date/Time: Sep 16, 2023 06:52 PM Reporting Lab: [address] [address] Performing Lab: [address] [address] UREA NITROGEN 24 mg/dL 7-25 GLUCOSE 99 mg/dL 65-100 SODIUM 137 mmol/L 135-145 POTASSIUM 4.4 mmol/L 3.5-5.0 CHLORIDE 104 mmol/L 100-110 CO2 22 meq/L 20-30 CREATININE, Serum 1.99 mg/dL H 0.50-1.40 eGFR(CKD-EPI 2020) 36 mL/min L >60 Oct 02, 2023 08:57 AM [facility] CALCIUM Specimen Type: SERUM No comment entered. Ordering Provider: ISABELA ASENCIO Report Released Date/Time: Sep 16, 2023 06:52 PM Reporting Lab: [address] [address] Performing [facility]: [facility] [address] [facility] [address] CALCIUM 9.1 mg/dL 8.5-10.2 Oct 02, 2023 08:57 AM [facility] VITAMIN B12 Specimen Type: SERUM No comment entered. Ordering Provider: ISABELA ASENCIO Report Released Date/Time: Sep 16, 2023 06:52 PM Reporting Lab: [facility] [address] [facility] [address] Performing Lab: [address] [address] VITAMIN B12 1105 pg/mL H 200-900 Oct 02, 2023 08:57 AM [facility] MICROSCOPIC AUTOMATED, URINE Specimen Type: URINE Comment: If Glucose = >500 and Ketones are positive, please alert the Physician. Ordering Provider: ISABELA ASENCIO Report Released Date/Time: Sep 16, 2023 06:52 PM Reporting Lab: [facility] [address] [facility] [address] Performing Lab: [facility] [address] [facility] [address] UA WBC 0-5 /[HPF] 0-5 UA MUCUS FEW /[LPF] Trace UA RBC 0-2 /[HPF] 0-3 Oct 02, 2023 08:57 AM [facility] CBC AND DIFF (AUTO) Specimen Type: BLOOD No comment entered. Ordering Provider: ISABELA ASENCIO Report Released Date/Time: Sep 16, 2023 06:52 PM Reporting Lab: [facility] [address] [facility] [address] Performing Lab: [address] [address] WBC 6.61 10*3/uL 4.50-11.00 RBC 4.42 10*6/uL 4.23-5.66 HGB 13.9 g/dL 12.8-17 HCT 39.8 39.2-50.4 MCV 90.0 fL 82-99 MCHC 34.9 g/dL 30.8-35.1 PLT 279 10*3/uL 140-360 RDW-CV 13.2 12.0-16.0 MONO, ABS 0.39 10*3/uL 0.30-1.10 MCH 31.4 pg 26.2-32.6 NEUT % 68.3 43.7-75.8 LYMPH % 21.9 14.0-42.3 MONO % 5.9 5.1-13.7 EOS % 2.7 0.4-6.8 BASO % 0.9 0.1-2.0 NEUT, ABS 4.51 10*3/uL 2.20-7.60 LYMPH, ABS 1.45 10*3/uL 1.00-3.20 EOS, ABS 0.18 10*3/uL 0.03-0.44 BASO, ABS 0.06 10*3/uL 0.01-0.13 IMMATURE GRAN % 0.3 0.0-0.7 IMMATURE GRAN, ABS 0.02 10*3/uL 0.00-0.06 NRBC % 0.0 0.0-0.0 NRBC, ABS 0.00 10*3/uL 0.00-0.00 Oct 02, 2023 08:57 AM [facility] URINALYSIS CLEAN CATCH Specimen Type: URINE Comment: If Glucose = >500 and Ketones are positive, please alert the Physician. Ordering Provider: ISABELA ASENCIO Report Released Date/Time: Sep 16, 2023 06:52 PM Reporting Lab: [address] [address] Performing Lab: [address] [address] UA COLOR Light-Yellow Yellow UA APPEARANCE Clear Clear UA GLUCOSE Normal mg/dL Negative UA KETONES NEGATIVE mg/dL Negative UA BLOOD NEGATIVE mg/dL Negative UA PROTEIN 70 mg/dL Negative UA NITRITE NEGATIVE mg/dL Negative UA BILIRUBIN NEGATIVE mg/dL Negative UA SPECIFIC GRAVITY 1.020 1.016-1.02 2 UA pH 6.0 5.0-9.0 UA UROBILINOGEN Normal mg/dL <2.0 UA LEUKOCYTE NEGATIVE Negative Social History: Smoking Status (Most current) and Tobacco Use (All prior to encounter date) This section includes the most current, and the historical, smoking and tobacco- related health factors from the [facility] facility where the Encounter took place. Current Smoking Status This section includes the most current smoking, or tobacco-related health factor, from the [facility] facility where the Encounter took place. Date/Time Current Smoking Status Comment Randal ity Oct 18, 2022 03:16 PM [place]-[facility] FORMER USER [facility] [place] [facility] Tobacco Use History This section includes a history of the smoking, or tobacco-related health factors, that were collected on or before the date of the Encounter. The data comes from the [facility] facility where the Encounter took place. Date/Time Smoking Status/Tobacco Use Comment F acemory Oct 18, 2022 03:16 PM VA-TOBACCO QUIT [...] LINED TO ANSWER [facility] [place] [facility] Encounter Notes: All associated encounter notes This section contains the clinical notes associated to the Encounter. Date/Time Encounter Note(s) Provider Source Sep 04, 2023 08:51 AM ADMINISTRATIVE NOTE: LOCAL TITLE: CCC: SCHEDULING ADMINISTRATION STANDARD TITLE: ADMINISTRATIVE NOTE DATE OF NOTE: SEP 04, 2023@08:51:59 ENTRY DATE: SEP 04, 2023@08:51:59 AUTHOR: BRANDIE MOELLER COSIGNER: URGENCY: STATUS: COMPLETED CCC: SCHEDULING ADMINISTRATION Has ADDENDA Patient Demographics Patient Name: NAINA BREEN Patient Primary Phone: [phone] Patient Primary [address]: [address] [place] [address] [place] [address] Patient : 1955 Patient Age: 68 Call Back Number: [phone] Caller/Recipient Relation to Patient: Self Administrative Administrative Note Reason: Other Administrative Note Comments: PT REQUESTING MRI OF BRAIN PER NEUROLOGIST HE HAD SEEN RECENTLY /ta/ BRANDIE MCDONALD [facility] AMSA Signed: 09/04/2023 08:52 Receipt Acknowledged By: 09/04/2023 09:00 /ta/ Dixie Pepe RN, BSN Primary Care 09/04/2023 13:40 /ta/ ANGELI RAMOS LPN LPN 09/04/2023 ADDENDUM STATUS: COMPLETED spoke with , advised that a consult for nuerology is in place but not precessed yet and that they will call him and when they see him they can order MRI. [place] states understanding. /ta/ Dixie Pepe RN, BSN Primary Care Signed: 09/04/2023 09:00 BRANDIE MOELLER [facility] [place] [facility]
--- OUTSIDE RECORDS SUMMARY | 2024-02-15 17:26 | XMS_ITS | Encounter Summary ---
Author Name [facility] Organization [facility] ([place]) Address [address] [place] [address] Care Team Providers Care Automatic Glove Turner And Former Name Role Phone ROSELYN PEREZ Primary Care [...] TRICA RE DODA WNR Oct 05, 2022 [facility] [id number] NOEMI BREEN ERT PATIENT MEDICARE (WNR) MEDICARE (M) PART A Feb 13, 2019 PART A [id number] NOEMI BREEN ERT PATIENT MEDICARE (WNR) MEDICARE (M) PART B Feb 13, 2019 PART B [id number] NOEMI BREEN ERT PATIENT MEDICARE (WNR) MEDICARE (M) PART A Feb 13, 2019 PART A [id number] [phone] NOEMI BREEN ERT PATIENT MEDICARE (WNR) MEDICARE (M) PART B Feb 13, 2019 PART B [id number] [phone] NOEMI BREEN ERT PATIENT MEDICARE (WNR) MEDICARE (M) PART A Feb 13, 2019 PART A [id number] [phone] NOEMI BREEN ERT PATIENT MEDICARE (WNR) MEDICARE (M) PART B Feb 13, 2019 PART B [id number] NOEMI BREEN ERT PATIENT FOR LIFE TFL* Feb 13, 2019 [id number] ONEMI BREEN ERT PATIENT FOR LIFE SUPPLEMEN SHAI TFL Feb 13, 2019 FOR LIFE [id number] NOEMI BREEN ERT PATIENT -FO R-LIFE DIREC T CARE Oct 05, 2022 FOR LIFE [id number] NOEMI BREEN ERT PATIENT Selected Encounter This section includes the information on record at [place] for the Encounter. Date/Time Encounter Type Encounter Description Reason Pro vider Source Oct 10, 2023 04:00 PM Outpatient Encounter PRIMARY CARE/MEDICINE IHE Encounter [...] Date/Time Appointment Type Appointme nt Facility Name Oct 21, 2023 09:00 AM AM[place]ATORY [place]IC[place] [facility] [place] [facility] Oct 25, 2023 10:00 AM AMBULATORY - NONE [place] [facility] [place] [facility] Nov 09, 2023 09:30 AM AMBULATORY [place]ATRY [place] [facility] [place] [facility] Nov 09, 2023 11:20 AM [place]IC[place] [facility] [place] [facility] Nov 23, 2023 03:30 PM [place]IC[place] [facility] [place] [facility] Dec 20, 2023 02:30 PM AM[place] [facility] [place] [facility] Jan 01, 2024 02:00 PM AMBULATORY - MEDICINE [facility] Mar 19, 2024 01:00 PM AMBULATORY - PSYCHIATRY [facility] Lab Results: +/- 30 days of [...] Range Comment Oct 02, 2023 08:57 AM [facility] VITAMIN B-1 (THIAMINE)-(QU) Specimen Type: PLASMA Comment: Vitamin supplementation within 24 hours prior to blood draw may affect the accuracy of the results. This test was developed and its analytical performance characteristics have been determined by [employer] [place], [place]. It has not been cleared or approved by the U.S. Food and Drug Administration. This assay has been validated pursuant to the CLIA regulations and is used for clinical purposes. Test Performed by [facility], [employer] [facility], [address] [place] [address] Angus Mendez M.D., Ph.D., Director of Laboratories , CLIA [id number] TEST PERFORMED AT: , Ordering Provider: NITISH ASENCIO Report Released Date/Time: Sep 16, 2023 06:52 PM Reporting Lab: [facility] [address] [facility] [address] Performing Lab: [facility] [address] [address] VITAMIN B-1 (THIAMINE)-(Q U) 22 nmol/L -Oct 02, 2023 08:57 AM [facility] FOLATE (WROX) Specimen Type: SERUM No comment entered. Ordering Provider: NITISH ASENCIO Report Released Date/Time: Sep 16, 2023 06:52 PM Reporting Lab: [facility] [address] [facility] [address] Performing Lab: [facility] [address] [facility] [address] FOLATE (WROX) 9.92 ng/mL >5.2 Oct 02, 2023 08:57 AM [facility] LIVER FUNCTION Specimen Type: SERUM No comment entered. Ordering Provider: NITISH ASENCIO Report Released Date/Time: Sep 16, 2023 06:52 PM Reporting Lab: [address] [address] Performing Lab: [address] [address] PROTEIN,TOTAL 6.9 g/dL 6.0-8.3 ALBUMIN 4.0 g/dL 3.5-5.0 ALKALINE PHOSPHATASE 86 U/L 40-150 AST 13 U/L 5-34 ALT 21 U/L BILIRUBIN, TOTAL 0.8 mg/dL 0.2-1.2 Oct 02, 2023 08:57 AM [facility] BASIC METABOLIC PANEL (fasting) Specimen Type: SERUM No comment entered. Ordering Provider: NITISH ASENCIO Report Released Date/Time: Sep 16, 2023 06:52 PM Reporting Lab: [address] [address] Performing Lab: [address] [address] UREA NITROGEN 24 mg/dL 7-25 GLUCOSE 99 mg/dL 65-100 SODIUM 137 mmol/L 135-145 POTASSIUM 4.4 mmol/L 3.5-5.0 CHLORIDE 104 mmol/L 100-110 CO2 22 meq/L 20-30 CREATININE, Serum 1.99 mg/dL H 0.50-1.40 eGFR(CKD-EPI 2020) 36 mL/min L >60 Oct 02, 2023 08:57 AM [facility] LIPID PANEL FASTING Specimen Type: SERUM No comment entered. Ordering Provider: NITISH ASENCIO Report Released Date/Time: Sep 16, 2023 06:52 PM Reporting Lab: [address] [address] Performing Lab: [facility] [address] [facility] [address] CHOLESTEROL 185 mg/dL TRIGLYCERIDE 272 mg/dL H 0-150 LDL calculated 96 mg/dL 0-129 CHOL/HDL 5.3 HDL CHOLESTEROL 35 mg/dL L 40-60 Oct 02, 2023 08:57 AM [facility] TSH Specimen Type: SERUM No comment entered. Ordering Provider: NITISH ASENCIO Report Released Date/Time: Sep 16, 2023 06:52 PM Reporting Lab: [facility] [address] [facility] [address] Performing Lab: [address] [address] TSH 0.78 u[IU]/mL 0.35-5.00 Oct 02, 2023 08:57 AM [facility] PSA Specimen Type: SERUM No comment entered. Ordering Provider: NITISH ASENCIO Report Released Date/Time: Sep 16, 2023 06:52 PM Reporting Lab: [facility] [address] [facility] [address] Performing Lab: [address] [address] PSA 0.53 ng/mL 0.00-4.00 Oct 02, 2023 08:57 AM [facility] CBC AND DIFF (AUTO) Specimen Type: BLOOD No comment entered. Ordering Provider: NITISH ASENCIO Report Released Date/Time: Sep 16, 2023 06:52 PM Reporting Lab: [facility] [address] [facility] [address] Performing Lab: [facility] [address] [address] WBC 6.61 10*3/uL 4.50-11.00 RBC 4.42 10*6/uL [...] 10*3/uL 0.00-0.00 Oct 02, 2023 08:57 AM [facility] CALCIUM Specimen Type: SERUM No comment entered. Ordering Provider: NITISH ASENCIO Report Released Date/Time: Sep 16, 2023 06:52 PM Reporting Lab: [address] [address] Performing Lab: [address] [address] CALCIUM 9.1 mg/dL 8.5-10.2 Oct 02, 2023 08:57 AM [facility] VITAMIN B12 Specimen Type: SERUM No comment entered. Ordering Provider: NITISH ASENCIO Report Released Date/Time: Sep 16, 2023 06:52 PM Reporting Lab: [address] [address] Performing Lab: [address] [address] VITAMIN B12 1105 pg/mL H 200-900 Oct 02, 2023 08:57 AM [facility] URINALYSIS CLEAN CATCH Specimen Type: URINE Comment: If Glucose = >500 and Ketones are positive, please alert the Physician. Ordering Provider: NITISH ASENCIO Report Released Date/Time: Sep 16, 2023 06:52 PM Reporting Lab: [facility] [address] [facility] [address] Performing Lab: [address] [address] UA COLOR Light-Yellow Yellow UA APPEARANCE Clear Clear UA GLUCOSE Normal mg/dL Negative UA KETONES NEGATIVE mg/dL Negative UA BLOOD NEGATIVE mg/dL Negative UA PROTEIN 70 mg/dL Negative UA NITRITE NEGATIVE mg/dL Negative UA BILIRUBIN NEGATIVE mg/dL Negative UA SPECIFIC GRAVITY 1.020 1.016-1.02 2 UA pH 6.0 5.0-9.0 UA UROBILINOGEN Normal mg/dL <2.0 UA LEUKOCYTE NEGATIVE Negative Oct 02, 2023 08:57 AM [facility] MICROSCOPIC AUTOMATED, URINE Specimen Type: URINE Comment: If Glucose = >500 and Ketones are positive, please alert the Physician. Ordering Provider: NITISH ASENCIO Report Released Date/Time: Sep 16, 2023 06:52 PM Reporting Lab: [address] [address] Performing Lab: [address] [address] UA WBC 0-5 /[HPF] 0-5 UA MUCUS FEW /[LPF] Trace UA RBC 0-2 /[HPF] 0-3 Social History: Smoking Status (Most current) and [...] Date/Time Current Smoking Status Comment Randal hyde Sep 26, 2023 09:00 AM [place]-TOBACCO FORMER USER [facility] Tobacco Use History This section includes a history of the smoking, or tobacco-related health factors, that were collected on or before the date of the Encounter. The data comes from the [place] facility where the Encounter took place. Date/Time Smoking Status/Tobacco Use Comment F acility Sep 26, 2023 09:00 AM VA-TOBACCO QUIT 15 YRS OR MORE [facility] [place] [facility] Oct 18, 2022 03:16 PM VA-TOBACCO FORMER USER [facility] [place] [facility] Oct 18, 2022 03:16 PM VA-TOBACCO QUIT 15 YRS OR MORE [facility] [place] [facility] Nov 12, 2021 10:30 AM VA-TOBACCO FORMER USER [facility] [place] [facility] Nov 12, 2021 10:30 AM VA-TOBACCO QUIT 5 TO < 15 YRS [facility] [place] [facility] Oct 01, 2020 11:02 AM VA-TOBACCO FORMER USER [facility] [place] [facility] Oct 01, 2020 11:02 AM VA-TOBACCO QUIT 15 YRS OR MORE [facility] [place] [facility] Oct 25, 2019 11:30 AM VA-TOBACCO FORMER USER [facility] [place] [facility] Oct 25, 2019 11:30 AM VA-TOBACCO QUIT 5 TO < 15 YRS [facility] [place] [facility] Sep 07, 2018 09:43 AM VA-TOBACCO FORMER USER [facility] [place] [facility] Sep 07, 2018 09:43 AM VA-TOBACCO QUIT 5 TO < 15 YRS [facility] [place] [facility] Apr 25, 2018 02:08 PM VA-TOBACCO USE DEC LINED TO ANSWER [place] [facility] [place] [facility] Radiology Reports: +/- 30 days [...] the Encounter. The data comes from all [place] treatment facilities. Date/Time Radiology Report Provider Source Oct 25, 2023 09:[address] PULMONARY NODULES W/O CONTRAST: NAINA BREEN [id number] -1955 M Exm Date: OCT 25, 2023@09:53 Req Phys: NITISH ASENCIO Pat Loc: CWM/NO/PACT 2 (Req'g Loc) Img Loc: [facility]/CT Service: Unknown [facility] [place] [facility] [place] [address] (Case [id number] COMPLETE) CT THORAX W/O CONT (CT Detailed) CPT:39783 Reason for Study: look for cancer Clinical History: Report Status: Verified Date Reported: OCT 25, 2023 Date Verified: OCT 25, 2023 Cement Tile Maker E-Sig:/ES/RONNIE COLMENARES JR Report: Study: Noncontrast CT scan of the chest. Comparison: CT scan of the chest from July 26, 2023 and March 23, 2021. CT scan of the abdomen and pelvis from March 10, 2021. TECHNIQUE: Contiguous axial [address] imaging is performed from the lung apices through the lung bases without the administration of intravenous contrast as per standard department protocol. Subsequently, sagittal and coronal reformats were generated. The lack of intravenous contrast inherently limits the evaluation of hilar structures, vascular structures, and abnormal enhancement patterns. Lower than standard dose was utilized limiting sensitivity for fine parenchymal detail. Dose Parameters: CTDI(vol): 3.5 mGy. DLP: 138.4 mGy*cm. Findings: Chest: Emphysema: None significant. Nodules: Interval smaller size of previously growing solid, round well-circumscribed left lower lobe pulmonary nodule currently measuring 4.9 mm, 8-300, measuring 5.1 mm on July 26, 2023 and 3.8 mm on the March 2021 examination. Stable 3.6 mm right lower lobe solid irregular pulmonary nodule, 8-248. Lungs/airway findings: Multiple scattered bilateral punctate calcified granulomata are again seen. Stable medial right lower lobe scarring/atelectasis again seen centered around 8-233. No acute pulmonary process or pleural effusion [...] to the upper pole of the left kidney that does not appear significantly changed. This area was not imaged on the [address] but appears unchanged from comparison CT abdomen and pelvis. The lack of interval change suggests a benign etiology. Attention on follow-up imaging can be performed. Bones and soft tissues: Status post right shoulder arthroplasty. Normal age-related degenerative changes present. No acute bony abnormality identified. Other findings: None. Impression: Slightly smaller size of the previously growing left lower lobe pulmonary nodule. No new concerning pulmonary nodule or mass identified. Follow-up noncontrast CT scan of the chest in 6 months time is recommended to reevaluate these findings. Primary Diagnostic Code: No immediate attention required Secondary Diagnostic Codes: POSSIBLE MALIGNANCY Primary Interpreting Staff: RONNIE COLMENARES JR, Radiologist (Cement Tile Maker) /RONNIE WOLFE JR [facility] Encounter Notes: All associated encounter notes This section contains the clinical notes associated to the Encounter. Date/Time Encounter Note(s) Provider Source Oct 10, 2023 04:00 PM LETTERS: LOCAL TITLE: PATIENT LETTER (T) STANDARD TITLE: LETTERS DATE OF NOTE: OCT 10, 2023@16:00 ENTRY DATE: OCT 10, 2023@16:00:32 AUTHOR: NITISH ASENCIO EXP COSIGNER: URGENCY: STATUS: COMPLETED DEPARTMENT OF [facility] Toll Free Number Primary Care Telephone Assistance can be reached at extension [phone] [facility] scheduling can be reached at extension [phone] [facility] scheduling can be reached at ext [phone] NAINA BREEN [address] [place] [address], [phone] October 10, 2023 Dear [place], Please find enclosed a copy of recent testing. The following tests were normal: Red blood cell count, white blood cell count, platelets, TSH thyroid, PSA prostate, liver enzymes, glucose, cholesterol, vitamin B12 level, folic acid level, thiamine level, urine. Creatinine level was mildly elevated. This is due to mild kidney insufficiency. Please contact me if you have questions. Respectfully, Nitihs Asencio MD ---- B12 & FOLATE ---- SERUM Oct 01 Oct 01 Reference 2023 2023 08:57 08:57 Units Ranges - B12 1105 H pg/mL 200 - 900 FOLATE 9.92 ng/mL Ref: >=5.2 FOLAT ng/mL 3 - 20 Comments: cristel c b. Evaluation for B12 SR-REF: Levels above 300 or 400 pg/mL are rarely associated with B12 deficiency induced hematological or neurological disease, respectively. Further testing is suggested for SYMPTOMATIC patients with B12 level between 100 and 300 pg/mL (hematological abnormalities) and between 100 and 400 pg/mL (neurological abnormalities). Ordering Provider: Nitish Asencio MD Report Released..: Oct 02, 2023@11:04 Reporting Lab....: [facility] [CLIA# [id number]] [address] [place] [phone] Performing Lab...: [facility] [CLIA# [id number]] [address] [place] [address] c. Ordering Provider: Nitish Asencio MD Report Released..: Oct 03, 2023@09:17 Reporting Lab....: [facility] [CLIA# [id number]] [address] [place] [address] Performing Lab...: [facility] [CLIA# [id number]] [address] [place] [address] ---- GENERAL CHEMISTRY ---- SERUM Oct 01 Reference 2023 08:57 Units Ranges - GLUCOSE 99 mg/dL 65 - 100 BUN 24 mg/dL 7 - 25 CREATININE 1.99 H mg/dL .5 - 1.4 eGFR(IDMS) Ref: >=60 CREAT mg/dL .5 - 1.5 eGFR See Eval Ref: See Eval Sodium 137 mmol/L 135 - 145 K+/Pot 4.4 mmol/L 3.5 - 5 CL 104 mmol/L 100 - 110 CO2 22 mEq/L 20 - 30 CA 9.1 mg/dL 8.5 - 10.2 [employer] mg/dL 3.5 - 7.2 NH3/Amm PO4 mg/dL 2.5 - 5 T. PROT 6.9 g/dL 6 - 8.3 ALBUMIN 4.0 g/dL 3.5 - 5 T BILI 0.8 mg/dL .2 - 1.2 D. BILI mg/dL 0 - .5 AST 13 U/L 5 - 34 ALT 21 U/L <6 - 55 GGT U/L 10 - 65 ALK ANU 86 U/L 40 - 150 AMYLASE U/L 25 - 125 MAG mg/dL 1.6 - 2.6 ACETONE Ref: Neg T3 Total ng/dL 35 - 193 Comments: janelle leal Evaluation for GLUCOSE: Reference range prior to 09/29/03 was 65-110 mg/dL Ordering Provider: Nitish Asencio MD Report Released..: Oct 02, 2023@10:39 Reporting Lab....: [facility] [CLIA# [id number]] [address] [place] [address] Performing Lab...: [facility] [CLIA# [id number]] [address] [place] [address] ---- LIPID PANEL ---- SERUM Oct 01 Reference 2023 08:57 Units Ranges - CHOL 185 mg/dL <7 - 199 TRIG 272 H mg/dL 0 - 150 HDL 35 L mg/dL 40 - 60 LDL-d mg/dL <10 - 120 LDL 96 mg/dL 0 - 129 CHO/HDL 5.3 Comments: janelle leal Evaluation for TRIG: Triglyceride & cLDL results may be affected by nonfasting state. Evaluation for LDL-c: Evaluation of cardiovascular risk is based on the following range of values: Desirable: <100 mg/dL Low risk: 100-129 mg/dL Borderline high: 130-159 mg/dL High:160-189 mg/dL Very high: > or = 190 mg/dL LDL calculated using Friedewald formula. Ordering Provider: Nitish Asencio MD Report Released..: Oct 02, 2023@10:39 Reporting Lab....: [facility] [CLIA# [id number]] [address] [place] [phone] Performing Lab...: [facility] [CLIA# [id number]] [address] [place] [phone] ---- PROSTATIC ASSAYS ---- SERUM Oct 01 Reference 2023 08:57 Units Ranges - ACID PH U/L 2.2 - 10.5 TartInh U/L .2 - 3.5 Pap U/L 0 - 1 PAP U/L 0 - 1.2 ProSpAg PrSpAg ng/ml 0 - 4 PSA 0.53 ng/mL 0 - 4 AcidPh IU/L 0 - 5.7 PAP IU/L 0 - 1.7 PSA%Dashawn % Ref: 26 or > RiskFac % %FrePSA % Ref: >16 PSA ng/mL 0 - 4 PSAFree ng/mL Comments: cristel afm. Evaluation for PSA -FRZ: PSA assay method = Chemiluminescent microparticle immunoassay by [employer] Ordering Provider: Nitish Asencio MD Report Released..: Oct 02, 2023@11:04 Reporting Lab....: [facility] [CLIA# [id number]] [address] [place] [address] Performing Lab...: [facility] [place] [facility] [CLIA# [id number]] [address] [place] [phone] ---- THYROID TESTS ---- SERUM Oct 01 Reference 2023 08:57 Units Ranges - T-U % 32 - 48 T4 ug/dL 4.5 - 12 TSH 0.78 uIU/mL .35 - 5 FTI ug/dL 6.3 - 12.4 T3FR pg/mL AROLDO AB IU/mL 0 - 2 TSIG % baseline FT4 ng/dL .6 - 1.6 Comments: cristel singh Ordering Provider: Nitish Asencio MD Report Released..: Oct 02, 2023@11:04 Reporting Lab....: [facility] [CLIA# [id number]] [address] [place] [phone] Performing Lab...: [facility] [CLIA# [id number]] [address] [place] [phone] ---- MICROSCOPIC ---- URINE Oct 01 Reference 2023 08:57 Units Ranges - WBC/HPF 0-5 /HPF 0 - 5 RBC/HPF 0-2 /HPF 0 - 3 BACTI /HPF Ref: NoneObs EPITH C SQ.EPTH /HPF TR.EPTH /HPF YEAST /HPF SPERM /HPF Ref: Not Established CRYSTLS Ref: NoneAbs CASTS HYALINE /LPF 0 - 2 COARSE /LPF FINE GR /LPF WBCCast /LPF Ref: None RBCCast /LPF Ref: None URIC AC /HPF Ref: None CA++ OX /HPF Ref: Not Established TRI ANU /HPF Ref: Not Established AM URAT /HPF AM PHOS /HPF Comments: a a. If Glucose = >500 and Ketones are positive, please alert the Physician. Ordering Provider: Nitish Asencio MD Report Released..: Oct 02, 2023@09:58 Reporting Lab....: [facility] [CLIA# [id number]] [address] [place] [phone] Performing Lab...: [facility] [CLIA# [id number]] [address] [place] [phone] ---- URINE TESTS ---- URINE Oct 01 Reference 2023 08:57 Units Ranges - Color Light-Yellow Ref: Yellow Appear Clear Ref: Clear pH 6.0 5 - 9 GlucUr Normal mg/dL Ref: Negative Keton Neg mg/dL Ref: Negative Blood Neg mg/dL Ref: Negative Protein 70 mg/dL Ref: Negative LeukEs Neg Ref: Negative Nitrit Neg mg/dL Ref: Negative Biliru Neg mg/dL Ref: Negative UroBiln Normal mg/dL Ref: <2.0 SpeGra 1.020 1.016 - 1.022 Comments: a a. If Glucose = >500 and Ketones are positive, please alert the Physician. Evaluation for Biliru: Etodolac may cause false positve Bilirubin, Urine. Ordering Provider: Nitish Asencio MD Report Released..: Oct 02, 2023@09:58 Reporting Lab....: [facility] [CLIA# [id number]] [address] [place] [address] Performing Lab...: [facility] [CLIA# [id number]] [address] [place] [address] ---- CBC and AUTO DIFF ---- BLOOD Oct 01 Reference 2023 08:57 Units Ranges - WBC 6.61 K/cmm 4.5 - 11 RBC 4.42 M/cmm 4.23 - 5.66 HGB 13.9 g/dL 12.8 - 17 HCT 39.8 % 39.2 - 50.4 MCV 90.0 fl 82 - 99 MCH 31.4 pg 26.2 - 32.6 MCHC 34.9 g/dL 30.8 - 35.1 RDW 13.2 % 12 - 16 PLT 279 K/cmm 140 - 360 Neut% 68.3 % 43.7 - 75.8 Lymph% 21.9 % 14 - 42.3 Hand% 5.9 % 5.1 - 13.7 Eos% 2.7 % .4 - 6.8 Baso% 0.9 % .1 - 2 IG% 0.3 % 0 - .7 NeutAbs 4.51 K/cmm 2.2 - 7.6 LymAbs 1.45 K/cmm 1 - 3.2 MonoAbs 0.39 K/cmm .3 - 1.1 EosAbs 0.18 K/cmm .03 - .44 BasoAbs 0.06 K/cmm .01 - .13 IG,Abs 0.02 K/cmm 0 - .06 NRBC% 0.0 % 0 - 0 NRBC# 0.00 K/cmm 0 - 0 RETIC % % .6 - 2 RETIC # K/cmm 30 - 90 Comments: maritza vera Ordering Provider: Nitish Asencio MD Report Released..: Oct 02, 2023@10:00 Reporting Lab....: [facility] [CLIA# [id number]] [address] [place] [address] Performing Lab...: [facility] [CLIA# [id number]] [address] [place] [phone] ---- MISCELLANEOUS TESTS ---- DATE TIME SPECIMEN TEST VALUE Ref ranges - Oct 02, 2023@08:57 PLASMA VITB-1 PL-LP-FRZ: 22 nmol/L 8 - 30 Vitamin supplementation within 24 hours prior to blood draw may affect the accuracy of the results. This test was developed and its analytical performance characteristics have been determined by [employer] [place], [place]. It has not been cleared or approved by the U.S. Food and Drug Administration. This assay has been validated pursuant to the CLIA regulations and is used for clinical purposes. Test Performed by [facility], [employer] [facility], [address] [place] [address] Angus Mendez M.D., Ph.D., Director of Laboratories , CLIA [id number] TEST PERFORMED AT: , Ordering Provider: Nitish Asencio MD Report Released..: Oct 09, 2023@10:40 Reporting Lab....: [facility] [CLIA# [id number]] [address] [place] [phone] Performing Lab...: [facility] [place] ( ) [address] [place] [address] Oct 02, 2023@08:57 URINE UA MUCUS: FEW /LPF Ref: Trace If Glucose = >500 and Ketones are positive, please alert the Physician. Ordering Provider: Nitish Asencio MD Report Released..: Oct 02, 2023@09:58 Reporting Lab....: [facility] [facility] [CLIA# [id number]] [address] [place] [address] Performing Lab...: [facility] [CLIA# [id number]] [address] [place] [address] Oct 02, 2023@08:57 SERUM eGFR(CKD-EPI 2020): 36 L mL/min Ref: >=60 Ordering Provider: Nitish Asencio MD Report Released..: Oct 02, 2023@10:39 Reporting Lab....: [facility] [CLIA# [id number]] [address] [place] [phone] Performing Lab...: [facility] [place] [facility] [CLIA# [id number]] [address] [place] [phone] = Sincerely, Your Primary Care Team [facility] [address] [facility] [address] [place] [address] [place] [address] [phone] [facility] [address] [place] [address] [place] [address] [phone] [facility] [address] [facility] [place] [phone] [place] [address] [phone] NITISH ASENCIO [facility] [place] [facility]
--- OUTSIDE RECORDS SUMMARY | 2024-02-15 17:26 | XMS_ITS | Encounter Summary ---
Author Name [facility] (MD) Organization [facility] (MD) Address [address] [place] [address] Care Team Providers [employer] Name Role Phone ROSELYN PEREZ Primary Care [...] WNR Oct 05, 2022 [facility] [id number] NOEMI BREEN ERT PATIENT MEDICARE (WNR) MEDICARE (M) PART A Feb 13, 2019 PART A [id number] NOEMI BREEN ERT PATIENT MEDICARE (WNR) MEDICARE (M) PART B Feb 13, 2019 PART B [id number] NOEMI BREEN ERT PATIENT MEDICARE (WNR) MEDICARE (M) PART A Feb 13, 2019 PART A [id number] [phone] NOEMI BREEN ERT PATIENT MEDICARE (WNR) MEDICARE (M) PART B Feb 13, 2019 PART B [id number] [phone] NOEMI RBEEN ERT PATIENT MEDICARE (WNR) MEDICARE (M) PART A Feb 13, 2019 PART A [id number] NOEMI BREEN ERT PATIENT MEDICARE (WNR) MEDICARE (M) PART B Feb 13, 2019 PART B [id number] [phone] NOEMI BREEN ERT PATIENT FOR LIFE TFL* Feb 13, 2019 [id number] NOEMI BREEN ERT PATIENT FOR LIFE SUPPLEMEN SHAI TFL Feb 13, 2019 [facility] [id number] NOEMI BREEN ERT PATIENT -FO R-LIFE DIREC T CARE Oct 05, 2022 [facility] [id number] NOEMI BREEN ERT PATIENT Selected Encounter This section includes the information on record at MD for the Encounter. Date/Time Encounter Type Encounter Description Reason Provider Source Sep 26, 2023 09:00 AM OFFICE O/P EST SF 10 MIN PRIMARY CARE/MEDICINE ICD-10-CM I69.911 Memory deficit following unspecified cerebrovascular disease NITISH ASENCIO [facility] Encounter Template Text not used by MD Assessments - Encounter Diagnoses This section includes the primary and secondary diagnoses documented for the Encounter. Date/Time Primary/Secondary Diagnosis Diagnosis Name Provider Source Sep 26, 2023 09:46 AM PRIMARY Memory deficit following unspecified cerebrovascular disease NITISH ASENCIO [facility] Plan of Treatment: Future Appointments (+ 6 months) and Future Tests (+/- 45 days) The Plan of Treatment section includes future care activities for the patient from all MD treatmentfacilities. This section includes future appointments and future orders which are active, pending or scheduled. Future Appointments This section includes appointments that were scheduled to occur 6 months from the date of the Encounter, up to a maximum of 20 appointments. The data comes from all MD treatment facilities. Appointment Date/Time Appointment Type Appointme nt Facility Name Oct 21, 2023 09:00 AM AMBULATORY - MEDICINE [facility] Oct 25, 2023 10:00 AM AMBULATORY - NONE [facility] Nov 09, 2023 09:30 AM AM[facility] - [facility] Nov 09, 2023 11:20 AM AMBULATORY - MEDICINE [facility] Nov 23, 2023 03:30 PM AMBULATORY - MEDICINE [facility] Dec 20, 2023 02:30 PM AMBULATORY - MEDICINE [facility] Jan 01, 2024 02:00 PM AMBULATORY - MEDICINE [facility] Mar 19, 2024 01:00 PM [facility] Active, Pending, and Scheduled Orders This section includes a listing of several types of active, pending, and scheduled orders, including clinic medications orders, diagnostic test orders, procedure orders and consult orders; where the start date of the order is 45 days before the date of the Encounter or 45 days after the date of theEncounter. The data comes from all MD treatment facilities. Test Date/Time Test Type Test Details Facility Name Aug 22, 2023 11:53 AM Consult Order COMMUNITY CARE-NEUROLOGY Cons [employer] [facility] Lab Results: +/- 30 days of the encounter This section includes the Chemistry and Hematology Lab Results on record with MD for the patient. Radiology Reports and Pathology Reports are provided separately, in subsequent sections. Lab Results This section contains the Chemistry/Hematology Results that were resulted 30 days before or 30 daysafter the date of the Encounter. Date/Time Source Result Type Result - Unit Interpretation Reference Range Comment Oct 02, 2023 08:57 AM [facility] VITAMIN B-1 (THIAMINE)-(QU) Specimen Type: PLASMA Comment: Vitamin supplementation within 24 hours prior to blood draw may affect the accuracy of the results. This test was developed and its analytical performance characteristics have been determined by [facility] [place], [place]. It has not been cleared or approved by the U.S. Food and Drug Administration. This assay has been validated pursuant to the CLIA regulations and is used for clinical purposes. Test Performed by [employer] [place], [employer] [facility], [address] [place], [place] Angus Mendez M.D., Ph.D., Director of Laboratories , PARVIN [id number] TEST PERFORMED AT: , Ordering Provider: NITISH ASENCIO Report Released Date/Time: Sep 16, 2023 06:52 PM Reporting Lab: [facility] [address] [address] Performing Lab: [facility] [address] [address] VITAMIN B-1 (THIAMINE)-(Q U) 22 nmol/L 8-30 Oct 02, 2023 08:57 AM [facility] FOLATE (WROX) Specimen Type: SERUM No comment entered. Ordering Provider: NITISH ASENCIO Report Released Date/Time: Sep 16, 2023 06:52 PM Reporting Lab: [facility] [address] [address] Performing Lab: [facility] [address] [facility] [address] FOLATE (WROX) 9.92 ng/mL >5.2 Oct 02, 2023 08:57 AM [facility] TSH Specimen Type: SERUM No comment entered. Ordering Provider: NITISH ASENCIO Report Released Date/Time: Sep 16, 2023 06:52 PM Reporting Lab: [facility] [address] [address] Performing Lab: [facility] [address] [address] TSH 0.78 u[IU]/mL 0.35-5.00 Oct 02, 2023 08:57 AM [facility] LIPID PANEL FASTING Specimen Type: SERUM No comment entered. Ordering Provider: NITISH ASENCIO Report Released Date/Time: Sep 16, 2023 06:52 PM Reporting Lab: [facility] [address] [address] Performing Lab: [address] [address] CHOLESTEROL 185 mg/dL TRIGLYCERIDE 272 mg/dL H 0-150 LDL calculated 96 mg/dL 0-129 CHOL/HDL 5.3 HDL CHOLESTEROL 35 mg/dL L 40-60 Oct 02, 2023 08:57 AM [facility] PSA Specimen Type: SERUM No comment entered. Ordering Provider: NITISH ASENCIO Report Released Date/Time: Sep 16, 2023 06:52 PM Reporting Lab: [facility] [address] [address] Performing Lab: [address] [address] PSA 0.53 ng/mL 0.00-4.00 Oct 02, 2023 08:57 AM [facility] LIVER FUNCTION Specimen Type: SERUM No comment entered. Ordering Provider: NITISH ASENCIO Report Released Date/Time: Sep 16, 2023 06:52 PM Reporting Lab: [facility] [address] [address] Performing Lab: [address] [address] PROTEIN,TOTAL 6.9 g/dL 6.0-8.3 ALBUMIN 4.0 g/dL 3.5-5.0 ALKALINE PHOSPHATASE 86 U/L 40-150 AST 13 U/L 5-34 ALT 21 U/L BILIRUBIN, TOTAL 0.8 mg/dL 0.2-1.2 Oct 02, 2023 08:57 AM [facility] BASIC METABOLIC PANEL (fasting) Specimen Type: SERUM No comment entered. Ordering Provider: NITISH ASENCIO Report Released Date/Time: Sep 16, 2023 06:52 PM Reporting Lab: [address] [address] Performing Lab: [address] [address] UREA NITROGEN 24 mg/dL 7-25 GLUCOSE 99 mg/dL 65-100 SODIUM 137 mmol/L 135-145 POTASSIUM 4.4 mmol/L 3.5-5.0 CHLORIDE 104 mmol/L 100-110 CO2 22 meq/L 20-30 CREATININE, Serum 1.99 mg/dL H 0.50-1.40 eGFR(CKD-EPI 2020) 36 mL/min L >60 Oct 02, 2023 08:57 AM [facility] CALCIUM Specimen Type: SERUM No comment entered. Ordering Provider: NITISH ASENCIO Report Released Date/Time: Sep 16, 2023 06:52 PM Reporting Lab: [facility] [address] [address] Performing Lab: [facility] [address] [address] CALCIUM 9.1 mg/dL 8.5-10.2 Oct 02, 2023 08:57 AM [facility] VITAMIN B12 Specimen Type: SERUM No comment entered. Ordering Provider: NITISH ASENCIO Report Released Date/Time: Sep 16, 2023 06:52 PM Reporting Lab: [facility] [address] Performing Lab: [facility] [address] [address] VITAMIN B12 1105 pg/mL H 200-900 Oct 02, 2023 08:57 AM [facility] MICROSCOPIC AUTOMATED, URINE Specimen Type: URINE Comment: If Glucose = >500 and Ketones are positive, please alert the Physician. Ordering Provider: NITISH ASENCIO Report Released Date/Time: Sep 16, 2023 06:52 PM Reporting Lab: [facility] [address] [address] Performing Lab: [facility] [address] [address] UA WBC 0-5 /[HPF] 0-5 UA MUCUS FEW /[LPF] Trace UA RBC 0-2 /[HPF] 0-3 Oct 02, 2023 08:57 AM [facility] CBC AND DIFF (AUTO) Specimen Type: BLOOD No comment entered. Ordering Provider: NITISH ASENCIO Report Released Date/Time: Sep 16, 2023 06:52 PM Reporting Lab: [facility] [address] [address] [facility]forming [facility]: [facility] [address] [address] WBC 6.61 10*3/uL 4.50-11.00 RBC 4.42 10*6/uL [...] 10*3/uL 0.00-0.00 Oct 02, 2023 08:57 AM [facility] URINALYSIS CLEAN CATCH Specimen Type: URINE Comment: If Glucose = >500 and Ketones are positive, please alert the Physician. Ordering Provider: NITISH ASENCIO Report Released Date/Time: Sep 16, 2023 06:52 PM Reporting Lab: [address] [address] Performing Lab: [address] [address] UA COLOR Light-Yellow Yellow UA APPEARANCE Clear Clear UA GLUCOSE Normal mg/dL Negative UA KETONES NEGATIVE mg/dL Negative UA BLOOD NEGATIVE mg/dL Negative UA PROTEIN 70 mg/dL Negative UA NITRITE NEGATIVE mg/dL Negative UA BILIRUBIN NEGATIVE mg/dL Negative UA SPECIFIC GRAVITY 1.020 1.016-1.02 2 UA pH 6.0 5.0-9.0 UA UROBILINOGEN Normal mg/dL <2.0 UA LEUKOCYTE NEGATIVE Negative Vital Signs: All taken on the encounter date This section contains inpatient and outpatient Vital Signs collected on the date of the Encounter. Date/Time Temperature Pulse Blood Pressure Respiratory Rate SP02 Pain Height Weight Body Mass Index Source Sep 26, 2023 09:00 AM 97.8 84 126/82 16 96 0 70 256.8 37 [place] [facility] Social History: Smoking Status (Most current) and Tobacco Use (All prior to encounter date) This section includes the most current, and the historical, smoking and tobacco- related health factors from the MD facility where the Encounter took place. Current Smoking Status This section includes the most current smoking, or tobacco-related health factor, from the MD facility where the Encounter took place. Date/Time Current Smoking Status Comment Randal hyde Sep 26, 2023 09:00 AM VA-TOBACCO FORMER USER [facility] Tobacco Use History This section includes a history of the smoking, or tobacco-related health factors, that were collected on or before the date of the Encounter. The data comes from the MD facility where the Encounter took place. Date/Time Smoking Status/Tobacco Use Comment F alejandro Sep 26, 2023 09:00 AM VA-TOBACCO QUIT 15 YRS OR MORE [place] [facility] Oct 18, 2022 03:16 PM VA-TOBACCO FORMER USER [place] [facility] Oct 18, 2022 03:16 PM VA-TOBACCO QUIT 15 YRS OR MORE [facility] [place] [place] [facility] Nov 12, 2021 10:30 AM VA-TOBACCO FORMER USER [facility] [place] [facility] Nov 12, 2021 10:30 AM VA-TOBACCO QUIT 5 TO < 15 YRS [facility] [place] [place] [facility] Oct 01, 2020 11:02 AM VA-TOBACCO FORMER USER MD [place] [facility] Oct 01, 2020 11:02 AM VA-TOBACCO QUIT 15 YRS OR MORE [facility] [place] [place] [facility] Oct 25, 2019 11:30 AM VA-TOBACCO FORMER USER MD [place] [facility] Oct 25, 2019 11:30 AM VA-TOBACCO QUIT 5 TO < 15 YRS MD [place] [facility] Sep 07, 2018 09:43 AM VA-TOBACCO FORMER USER MD [facility] [place] [facility] Sep 07, 2018 09:43 AM VA-TOBACCO QUIT 5 TO < 15 YRS [place] [facility] Apr 25, 2018 02:08 PM VA-TOBACCO USE DEC LINED TO ANSWER MD [facility] Radiology Reports: +/- 30 days [...] the Encounter. The data comes from all MD treatment facilities. Date/Time Radiology Report Provider Source Oct 25, 2023 09:[address] PULMONARY NODULES W/O CONTRAST: NAINA BREEN [id number] -[id number] M Exm Date: OCT 25, 2023@09:53 Req Phys: NITISH ASENCIO Loc: CWM/NO/PACT 2 (Req'g Loc) Img Loc: [place]/CT Service: [place] [address] (Case [id number] COMPLETE) CT THORAX W/O CONT (CT Detailed) CPT:44228 Reason for Study: look for cancer Clinical History: Report Status: Verified Date Reported: OCT 25, 2023 Date Verified: OCT 25, 2023 Monitor Worker E-Sig:/ES/RONNIE COLMENARES JR Report: Study: Noncontrast CT [...] Primary Interpreting Staff: RONNIE COLMENARES JR, Radiologist (Monitor Worker) /RONNIE WOLFE JR MD [facility] Encounter Notes: All associated encounter notes This section contains the clinical notes associated to the Encounter. Date/Time Encounter Note(s) Provider Source Sep 26, 2023 09:25 AM PHYSICIAN NOTE: LOCAL TITLE: MD NOTE STANDARD TITLE: PHYSICIAN NOTE DATE OF NOTE: SEP 26, 2023@09:25 ENTRY DATE: SEP 26, 2023@09:25:04 AUTHOR: NITISH ASENCIO EXP COSIGNER: URGENCY: STATUS: COMPLETED Patient Name: NAINA BREEN VITALS: Patient temperature: 97.8 F [36.6 C] (09/26/2023 09:00) Blood pressure: 126/82 (09/26/2023 09:00) Patient height: 70 in [177.8 cm] (09/26/2023 09:00) Patient weight: 256.8 lb [116.48 kg] (09/26/2023 09:00) Patient BMI: BMI: 36.9 Patient pulse: 84 (09/26/2023 09:00) Patient respiration: 16 (09/26/2023 09:00) Patient Pulse Oximetry: 96% (09/26/2023 09:00) Pain Ratin (09/26/2023 09:00) Active [facility] Medications: Active Outpatient Medications (including [...] ACTIVE DAILY 8 Total Medications Remote Medications: No Active 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 Recently confirmed by neuropsychology testing. Psychologist recommended MRI and neurologist. Patient feels well today with no complaints. 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 Physical examination Well-developed well-nourished male in no acute distress Coronary no murmur Lungs clear carotid no bruit No peripheral edema Carotid no bruit No-show labs Assessment and plan: 1. Decreased memory: Stable condition Plan: MRI brain ordered today Await neurology consult Fasting labs this week Follow-up 3 months PTSD Screening: PC-PTSD-5 A PTSD screening test (PC-PTSD-5) was negative (score=0). IN THE PAST MONTH, have you ever had any experience that was so frightening, horrible or traumatic. For example: A serious accident or fire a physical or sexual assault or abuse An earthquake or flood A war Seeing someone be killed or seriously injured Having a loved one through homicide or suicide 1. Have you ever experienced this kind of event? YES 2. Had nightmares about the event(s) or thought about the event(s) when you did not want to? NO 3. Tried hard not to think about the event(s) or went out of your way to avoid situations that reminded you of the event(s)? NO 4. Been constantly on guard, watchful, or easily startled? NO 5. [place] numb or detached from people, activities, or your surroundings? NO 6. [place] guilty or unable to stop blaming yourself or others for the event(s) or any problems the event(s) may have caused? NO Medication Reconciliation: Outpatient: Has the patient been taking medications as documented in the EMLR? YES: The patient has been taking medications as documented in the EMLR. Essential Medication List for Review used to complete this medication reconciliation. INCLUDED IN THIS LIST: Alphabetical list of active outpatient prescriptions dispensed from this MD (local) and dispensed from another MD or [facility] facility (remote) as well as [...] /ta/ Nitish Asencio MD Staff Physician Signed: 09/26/2023 09:46 NITISH ASENCIO [place] [facility] [place] [facility] Sep 26, 2023 09:06 AM PREVENTIVE MEDICINE NURSING NOTE: LOCAL TITLE: CLINICAL REMINDERS/NURSING STANDARD TITLE: PREVENTIVE MEDICINE NURSING NOTE DATE OF NOTE: SEP 26, 2023@09:06 ENTRY DATE: SEP 26, 2023@09:06:58 AUTHOR: ANGELI RAMOS COSIGNER: URGENCY: STATUS: COMPLETED Tobacco Use Screening: The patient is a former tobacco user. The patient quit fifteen or more years ago. Alcohol Use Screen (AUDIT-C): Alcohol Screen: SCREEN FOR ALCOHOL (AUDIT-C) An alcohol screening test (AUDIT-C) was negative (score=4). 1. How often did you have a drink containing alcohol in the past year? Consider a drink to be a 12 ounce can or bottle of regular beer, 8 ounces of malt liquor, a 5 ounce glass of table wine, or a 1.5 ounce shot of liquor (like scotch, gin, or vodka). Two to three times per week 2. How many drinks containing alcohol did you have on a typical day when you were drinking in the past year? One or two drinks 3. How often did you have six or more drinks on one occasion in the past year? Less than monthly Depression Screening: Perform PHQ-2 A PHQ-2 screen was performed. The score was 0 which is a negative screen for depression. Over the past two weeks, how often have you been bothered by the following problems? 1. Little interest or pleasure in doing things Not at all 2. Feeling down, depressed, or hopeless Not at all Suicide Screen: C-SSRS Screening [place] Suicide Severity Rating Scale (C-SSRS) screener 1. Over the past month, have you wished you were or wished you could go to sleep and not wake up? No 2. Over the past month, have you had any actual thoughts of killing yourself? No 3. Over the past month, have you been thinking about how you might do this? Response not required due to responses to other questions. 4. Over the past month, have you had these thoughts and had some intention of acting on them? Response not required due to responses to other questions. 5. Over the past month, have you started to work out or worked out the details of how to kill yourself? Response not required due to responses to other questions. 6. If yes, at any time in the past month did you intend to carry out this plan? Response not required due to responses to other questions. 7. In your lifetime, have you ever done anything, started to do anything, or prepared to do anything to end your life (for example, collected pills, obtained a gun, gave away valuables, went to the roof but didn't jump)? No 8. If YES, was this within the past 3 months? Response not required due to responses to other questions. (Optional) Whole Health Documentation: What matters the most to you? What motivates you to be healthy? (MAP) Response: i want to live longer /ta/ ANGELI RAMOS LPN LPN Signed: 09/26/2023 09:11 [facility]
--- OUTSIDE RECORDS SUMMARY | 2024-02-15 17:26 | XMS_ITS | Encounter Summary ---
Author Name [facility] ([place]) Address [address] [place] [address] Care Team Providers Care Contract Technical Writer Name Role Phone ROSELYN PEREZ Primary Care [...] TRICA RE DOD[id number] NOEMI BREEN ERT PATIENT MEDICARE (WNR) MEDICARE (M) PART B Feb 13, 2019 PART B [id number] NOEMI BREEN ERT PATIENT MEDICARE (WNR) MEDICARE (M) PART A Feb 13, 2019 PART A [id number] [id number] NOEMI BREEN ERT PATIENT MEDICARE (WNR) MEDICARE (M) PART A Feb 13, 2019 PART A [id number] NOEMI BREEN ERT PATIENT MEDICARE (WNR) MEDICARE (M) PART B Feb 13, 2019 PART B [id number] NOEMI BREEN ERT PATIENT MEDICARE (WNR) MEDICARE (M) PART A Feb 13, 2019 PART A [id number] NOEMI BREEN ERT PATIENT MEDICARE (WNR) MEDICARE (M) PART B Feb 13, 2019 PART B [id number] NEOMI BREEN ERT PATIENT FOR LIFE TFL* Feb 13, 2019 [id number] NOEMI BREEN ERT PATIENT FOR LIFE SUPPLEMEN SHAI TFL Feb 13, 2019 [facility] LIFE [id number] NOEMI BREEN ERT PATIENT -FO R-LIFE DIREC T CARE Oct 05, 2022 [facility] [id number] NOEMI BREEN ERT PATIENT Selected Encounter This section includes the information on record at [place] for the Encounter. Date/Time Encounter Type Encounter Description Reason Pro vider Source Sep 21, 2023 10:20 AM Outpatient Encounter PRIMARY CARE/MEDICINE IHE Encounter Template Text not used by [place] Plan of Treatment: Future Appointments (+ 6 months) and Future Tests (+/- 45 days) The Plan of Treatment section includes future care activities for the patient from all [place] treatmentfacilities. This section includes future appointments and future orders which are active, pending or scheduled. Future Appointments This section includes appointments that were scheduled to occur 6 months from the date of the Encounter, up to a maximum of 20 appointments. The data comes from all [place] treatment facilities. Appointment Date/Time Appointment Type Appointme nt Facility Name Sep 26, 2023 09:00 AM AM[place]ULATORY [place]ICINE [place] [facility] [place] [facility] Oct 21, 2023 09:00 AM [place]IC[place] [facility] [place] [facility] Oct 25, 2023 10:00 AM AMBULATORY - NONE [facility] [place] [facility] Nov 09, 2023 09:30 AM AMBULATORY - PS[place]CHIATRY [facility] [place] [facility] Nov 09, 2023 11:20 AM AM[place]ULATORY [place] MEDICINE [place] [facility] [place] [facility] Nov 23, 2023 03:30 PM AMBULATORY [place]ICINE [place] [facility] [place] [facility] Dec 20, 2023 02:30 PM AMBULATORY - MEDICINE [facility] Jan 01, 2024 02:00 PM AMBULATORY - MEDICINE [facility] Mar 19, 2024 01:00 PM AMBULATORY - PSYCHIATRY [facility] Active, Pending, and Scheduled Orders This section includes a listing of several types of active, pending, and scheduled orders, including clinic medications orders, diagnostic test orders, procedure orders and consult orders; where the start date of the order is 45 days before the date of the Encounter or 45 days after the date of theEncounter. The data comes from all [place] treatment facilities. Test Date/Time Test Type Test Details Facility Name Aug 22, 2023 11:53 AM Consult Order COMMUNITY CARE-NEUROLOGY Cons Quality Process Lead's Choice [facility] Lab Results: +/- 30 days of the encounter This section includes the Chemistry and Hematology Lab Results on record with [place] for the patient. Radiology Reports and Pathology Reports are provided separately, in subsequent sections. Lab Results This section contains the Chemistry/Hematology Results that were resulted 30 days before or 30 daysafter the date of the Encounter. Date/Time Source Result Type Result - Unit Interpretation Reference Range Comment Oct 02, 2023 08:57 AM [facility] VITAMIN B-1 (THIAMINE)-(QU) Specimen Type: PLASMA Comment: Vitamin supplementation within 24 hours prior to blood draw may affect the accuracy of the results. This test was developed and its analytical performance characteristics have been determined by [employer] [place], [place]. It has not been cleared or approved by the U.S. Food and Drug Administration. This assay has been validated pursuant to the CLIA regulations and is used for clinical purposes. Test Performed by [email or web address], [employer] [place], [address] [place], [place] Angus Mendez M.D., Ph.D., Director of Laboratories , CLIA [id number] TEST PERFORMED AT: , Ordering Provider: ISABELA ASENCIO Report Released Date/Time: Sep 16, 2023 06:52 PM Reporting Lab: [address] [address] Performing Lab: [facility] [address] [address] VITAMIN B-1 (THIAMINE)-(Q U) 22 nmol/L 8-30 Oct 02, 2023 08:57 AM [facility] FOLATE (WROX) Specimen Type: SERUM No comment entered. Ordering Provider: ISABELA ASENCIO Report Released Date/Time: Sep 16, 2023 06:52 PM Reporting Lab: [facility] [address] [facility] [address] Performing Lab: [facility] [address] [facility] [address] FOLATE (WROX) 9.92 ng/mL >5.2 Oct 02, 2023 08:57 AM [facility] TSH Specimen Type: SERUM No comment entered. Ordering Provider: ISABELA ASENCIO Report Released Date/Time: Sep 16, 2023 06:52 PM Reporting Lab: [facility] [address] [facility] [address] Performing Lab: [facility] [address] [facility] [address] TSH 0.78 u[IU]/mL 0.35-5.00 Oct 02, 2023 08:57 AM [facility] LIPID PANEL FASTING Specimen Type: SERUM No comment entered. Ordering Provider: ISABELA ASENCIO Report Released Date/Time: Sep 16, 2023 06:52 PM Reporting Lab: [facility] [address] [facility] [address] Performing Lab: [facility] [address] [facility] [address] CHOLESTEROL 185 mg/dL TRIGLYCERIDE 272 mg/dL H 0-150 LDL calculated 96 mg/dL 0-129 CHOL/HDL 5.3 HDL CHOLESTEROL 35 mg/dL L 40-60 Oct 02, 2023 08:57 AM [facility] LIVER FUNCTION Specimen Type: SERUM No comment entered. Ordering Provider: ISABELA ASENCIO Report Released Date/Time: Sep 16, 2023 06:52 PM Reporting Lab: [facility] [address] [facility] [address] Performing Lab: [address] [address] PROTEIN,TOTAL 6.9 g/dL 6.0-8.3 ALBUMIN 4.0 g/dL 3.5-5.0 ALKALINE PHOSPHATASE 86 U/L 40-150 AST 13 U/L 5-34 ALT 21 U/L BILIRUBIN, TOTAL 0.8 mg/dL 0.2-1.2 Oct 02, 2023 08:57 AM [facility] PSA Specimen Type: SERUM No comment entered. Ordering Provider: ISABELA ASENCIO Report Released Date/Time: Sep 16, 2023 06:52 PM Reporting Lab: [address] [address] Performing Lab: [address] [address] PSA 0.53 ng/mL 0.00-4.00 Oct 02, 2023 08:57 AM [facility] BASIC METABOLIC PANEL (fasting) Specimen Type: SERUM No comment entered. Ordering Provider: ISABELA ASENCIO Report Released Date/Time: Sep 16, 2023 06:52 PM Reporting Lab: [address] [address] Performing Lab: [address] [address] UREA NITROGEN 24 mg/dL 7-25 GLUCOSE 99 mg/dL 65-100 SODIUM 137 mmol/L 135-145 POTASSIUM 4.4 mmol/L 3.5-5.0 CHLORIDE 104 mmol/L 100-110 CO2 22 meq/L 20-30 CREATININE, Serum 1.99 mg/dL H 0.50-1.40 eGFR(CKD-EPI 2020) 36 mL/min L >60 Oct 02, 2023 08:57 AM [facility] CALCIUM Specimen Type: SERUM No comment entered. Ordering Provider: ISABELA ASENCIO Report Released Date/Time: Sep 16, 2023 06:52 PM Reporting Lab: [facility] [address] [facility] [address] Performing Lab: [facility] [address] [facility] [address] CALCIUM 9.1 mg/dL 8.5-10.2 Oct 02, 2023 08:57 AM [facility] VITAMIN B12 Specimen Type: SERUM No comment entered. Ordering Provider: ISABELA ASENCIO Report Released Date/Time: Sep 16, 2023 06:52 PM Reporting Lab: [facility] [address] [facility] [address] Performing Lab: [facility] [address] VITAMIN B12 1105 pg/mL H 200-900 Oct 02, 2023 08:57 AM [facility] MICROSCOPIC AUTOMATED, URINE Specimen Type: URINE Comment: If Glucose = >500 and Ketones are positive, please alert the Physician. Ordering Provider: ISABELA ASENCIO Report Released Date/Time: Sep 16, 2023 06:52 PM Reporting Lab: [facility] [address] [facility] [address] Performing Lab: [facility] [address] UA WBC 0-5 /[HPF] 0-5 UA MUCUS FEW /[LPF] Trace UA RBC 0-2 /[HPF] 0-3 Oct 02, 2023 08:57 AM [facility] CBC AND DIFF (AUTO) Specimen Type: BLOOD No comment entered. Ordering Provider: ISABELA ASENCIO Report Released Date/Time: Sep 16, 2023 06:52 PM Reporting Lab: [facility] [address] [address] Performing Lab: [facility] [address] WBC 6.61 10*3/uL 4.50-11.00 RBC 4.42 10*6/uL [...] 10*3/uL 0.00-0.00 Oct 02, 2023 08:57 AM [facility] URINALYSIS CLEAN CATCH Specimen Type: URINE Comment: If Glucose = >500 and Ketones are positive, please alert the Physician. Ordering Provider: ISABELA ASENCIO Report Released Date/Time: Sep 16, 2023 06:52 PM Reporting Lab: [facility] [address] [facility] [address] Performing Lab: [address] [address] UA COLOR Light-Yellow Yellow UA APPEARANCE Clear [...] and tobacco- related health factors from the [place] facility where the Encounter took place. Current Smoking Status This section includes the most current smoking, or tobacco-related health factor, from the [place] facility where the Encounter took place. Date/Time Current Smoking Status Comment Facil ity Oct 18, 2022 03:16 PM [facility] QUIT 15 YRS OR MORE [facility] [place] [facility] Tobacco Use History This section includes a history of the smoking, or tobacco-related health factors, that were collected on or before the date of the Encounter. The data comes from the [place] facility where the Encounter took place. Date/Time Smoking Status/Tobacco Use Comment F acility Oct 18, 2022 03:16 PM [facility]-TOBACCO QUIT 15 YRS OR MORE [facility] [place] [facility] Nov 12, 2021 10:30 AM VA-TOBACCO FORMER USER [facility] [place] [facility] Nov 12, 2021 10:30 AM [facility]-TOBACCO QUIT 5 TO < 15 YRS [facility] [place] [facility] Oct 01, 2020 11:02 AM VA-TOBACCO FORMER USER [facility] [place] [facility] Oct 01, 2020 11:02 AM [facility]-TOBACCO QUIT 15 YRS OR MORE [facility] [place] [facility] Oct 25, 2019 11:30 AM VA-TOBACCO FORMER USER [facility] [place] [facility] Oct 25, 2019 11:30 AM VA-TOBACCO QUIT 5 TO < 15 YRS [facility] [place] [facility] Sep 07, 2018 09:43 AM VA-TOBACCO FORMER USER [facility] [place] [facility] Sep 07, 2018 09:43 AM VA-TOBACCO QUIT 5 TO < 15 YRS [facility] [place] [facility] Apr 25, 2018 02:08 PM VA-TOBACCO USE DEC LINED TO ANSWER [facility] [place] [facility] Encounter Notes: All associated encounter notes This section contains the clinical notes associated to the Encounter. Date/Time Encounter Note(s) Provider Source Sep 21, 2023 10:21 AM ADMINISTRATIVE NOTE: LOCAL TITLE: ADMINISTRATIVE NOTE STANDARD TITLE: ADMINISTRATIVE NOTE DATE OF NOTE: SEP 21, 2023@10:21 ENTRY DATE: SEP 21, 2023@10:21:08 AUTHOR: SILVIA EMERSON EXP COSIGNER: URGENCY: STATUS: COMPLETED Reminder call for your upcoming Primary Care Appointment and the need for preparations prior to your upcoming appt. [X] Location in [address] [X] Fasting labs [ ] Lab work within 30 days [ ] Urine [ ] No Preparation Action taken: [ ] Called , left voice message [ ] Called , unable to leave voice mail [X] Spoke to /home care manager rn to remind them of upcoming appt/preparations Upcoming Appointments: 09/26/2023 09:00 CWM/NO/PACT 2 10/25/2023 10:00 CWM/NO/CAT SCAN 10/25/2023 10:30 CWM/NO/MHC/MOSHE /ta/ SILVIA EMERSON AMSA Signed: 09/21/2023 10:21 SILVIA EMERSON [place] [facility] [place] [facility]
--- OUTSIDE RECORDS SUMMARY | 2024-02-15 17:26 | XMS_ITS | Encounter Summary ---
Author Name [facility] Address [address] [place] [address] Care Team Providers Care Metal Weather Stripper Name Role Phone ROSELYN PEREZ Primary Care [...] TRICA [id number] NOEMI BREEN ERT PATIENT MEDICARE (WNR) MEDICARE (M) PART A Feb 13, 2019 PART A [id number] [phone] NOEMI BREEN ERT PATIENT MEDICARE (WNR) MEDICARE (M) PART B Feb 13, 2019 PART B [id number] NOEMI BREEN ERT PATIENT MEDICARE (WNR) MEDICARE (M) PART A Feb 13, 2019 PART A [id number] NOEMI BREEN ERT PATIENT MEDICARE (WNR) MEDICARE (M) PART B Feb 13, 2019 PART B [id number] [phone] NOEMI BREEN ERT PATIENT MEDICARE (WNR) MEDICARE (M) PART A Feb 13, 2019 PART A [id number] NOEMI BREEN ERT PATIENT MEDICARE (WNR) MEDICARE (M) PART B Feb 13, 2019 PART B [id number] NOEMI BREEN ERT PATIENT FOR LIFE TFL* Feb 13, 2019 [id number] [phone] NOEMI BREEN ERT PATIENT FOR LIFE SUPPLEMEN SHAI TFL Feb 13, 2019 [facility] LIFE [id number] NOEMI BREEN ERT PATIENT -FO R-LIFE DIREC T CARE Oct 05, 2022 [facility] LIFE [id number] [phone] NOEMI BREEN ERT PATIENT Selected Encounter [...] - MEDICINE [facility] [place] [facility] Oct 25, 2023 10:00 AM AMBULATORY - NONE [facility] [place] [facility] Nov 09, 2023 09:30 AM AMBULATORY - PSYCHIATRY [facility] [place] [facility] Nov 09, 2023 11:20 AM AMBULATORY - MEDICINE [facility] [place] [facility] Nov 23, 2023 03:30 PM AMBULATORY - MEDICINE [facility] [place] [facility] Dec 20, 2023 02:30 PM AMBULATORY - MEDICINE [facility] [place] [facility] Jan 01, 2024 02:00 PM AMBULATORY - MEDICINE [facility] Mar 19, 2024 01:00 PM AMBULATORY - PSYCHIATRY [facility] Lab Results: +/- 30 days of [...] Range Comment Oct 02, 2023 08:57 AM [facility] VITAMIN B-1 (THIAMINE)-(QU) Specimen Type: PLASMA Comment: Vitamin supplementation within 24 hours prior to blood draw may affect the accuracy of the results. This test was developed and its analytical performance characteristics have been determined by [employer] [place], [place]. It has not been cleared or approved by the U.S. Food and Drug Administration. This assay has been validated pursuant to the CLIA regulations and is used for clinical purposes. Test Performed by [facility], [employer] [facility], [address] [place] [address] Angus Mendez M.D., Ph.D., Director of Laboratories , CLIA [id number] TEST PERFORMED AT: , Ordering Provider: NITISH ASENCIO Report Released Date/Time: Sep 16, 2023 06:52 PM Reporting Lab: [facility] [address] [address] Performing Lab: [facility] [address] [address] VITAMIN B-1 (THIAMINE)-(Q U) 22 nmol/L -Oct 02, 2023 08:57 AM [facility] FOLATE (WROX) Specimen Type: SERUM No comment entered. Ordering Provider: NITISH ASENCIO Report Released Date/Time: Sep 16, 2023 06:52 PM Reporting Lab: [facility] [address] [address] Performing Lab: [facility] [address] [facility] [facility] [address] FOLATE (WROX) 9.92 ng/mL >5.2 Oct 02, 2023 08:57 AM [facility] TSH Specimen Type: SERUM No comment entered. Ordering Provider: NITISH ASENCIO Report Released Date/Time: Sep 16, 2023 06:52 PM Reporting Lab: [facility] [address] [address] Performing Lab: [facility] [address] [address] TSH 0.78 u[IU]/mL 0.35-5.00 Oct 02, 2023 08:57 AM [facility] LIPID PANEL FASTING Specimen Type: SERUM No comment entered. Ordering Provider: NITISH ASENCIO Report Released Date/Time: Sep 16, 2023 06:52 PM Reporting Lab: [facility]ITAL[facility] [address] [address] Performing Lab: [facility]ITAL[facility] [address] [address] CHOLESTEROL 185 mg/dL TRIGLYCERIDE 272 mg/dL H 0-150 LDL calculated 96 mg/dL 0-129 CHOL/HDL 5.3 HDL CHOLESTEROL 35 mg/dL L 40-60 Oct 02, 2023 08:57 AM [facility] PSA Specimen Type: SERUM No comment entered. Ordering Provider: NITISH ASENCIO Report Released Date/Time: Sep 16, 2023 06:52 PM Reporting Lab: [facility] TRN [facility]ITAL[facility] [address] [address] Performing Lab: [facility]ITAL[facility] [address] [address] PSA 0.53 ng/mL 0.00-4.00 Oct 02, 2023 08:57 AM [facility] LIVER FUNCTION Specimen Type: SERUM No comment entered. Ordering Provider: NITISH ASENCIO Report Released Date/Time: Sep 16, 2023 06:52 PM Reporting Lab: [facility]ITAL[facility] [address] [address] Performing Lab: [address] [address] PROTEIN,TOTAL 6.9 g/dL 6.0-8.3 ALBUMIN 4.0 g/dL 3.5-5.0 ALKALINE PHOSPHATASE 86 U/L 40-150 AST 13 U/L 5-34 ALT 21 U/L BILIRUBIN, TOTAL 0.8 mg/dL 0.2-1.2 Oct 02, 2023 08:57 AM [facility] BASIC METABOLIC PANEL (fasting) Specimen Type: SERUM No comment entered. Ordering Provider: NITISH ASENCIO Report Released Date/Time: Sep 16, 2023 06:52 PM Reporting Lab: [address] [address] Performing Lab: [address] [address] UREA NITROGEN 24 mg/dL 7-25 GLUCOSE 99 mg/dL 65-100 SODIUM 137 mmol/L 135-145 POTASSIUM 4.4 mmol/L 3.5-5.0 CHLORIDE 104 mmol/L 100-110 CO2 22 meq/L 20-30 CREATININE, Serum 1.99 mg/dL H 0.50-1.40 eGFR(CKD-EPI 2020) 36 mL/min L >60 Oct 02, 2023 08:57 AM [facility] CALCIUM Specimen Type: SERUM No comment entered. Ordering Provider: NITISH ASENCIO Report Released Date/Time: Sep 16, 2023 06:52 PM Reporting Lab: [address] [address] Performing Lab: [facility] [address] CALCIUM 9.1 mg/dL 8.5-10.2 Oct 02, 2023 08:57 AM [facility] VITAMIN B12 Specimen Type: SERUM No comment entered. Ordering Provider: NITISH ASENCIO Report Released Date/Time: Sep 16, 2023 06:52 PM Reporting Lab: [address] [address] Performing Lab: [facility] [address] [address] VITAMIN B12 1105 pg/mL H 200-900 Oct 02, 2023 08:57 AM [facility] MICROSCOPIC AUTOMATED, URINE Specimen Type: URINE Comment: If Glucose = >500 and Ketones are positive, please alert the Physician. Ordering Provider: NITISH ASENCIO Report Released Date/Time: Sep 16, 2023 06:52 PM Reporting Lab: [facility] [address] [address] Performing Lab: [address] [address] UA WBC 0-5 /[HPF] 0-5 UA MUCUS FEW /[LPF] Trace UA RBC 0-2 /[HPF] 0-3 Oct 02, 2023 08:57 AM [facility] CBC AND DIFF (AUTO) Specimen Type: BLOOD No comment entered. Ordering Provider: NITISH ASENCIO Report Released Date/Time: Sep 16, 2023 06:52 PM Reporting Lab: [facility] [address] [address] Performing Lab: [address] [address] WBC 6.61 10*3/uL 4.50-11.00 RBC 4.42 10*6/uL [...] 10*3/uL 0.00-0.00 Oct 02, 2023 08:57 AM [facility] URINALYSIS CLEAN CATCH Specimen Type: URINE Comment: If Glucose = >500 and Ketones are positive, please alert the Physician. Ordering Provider: NITISH ASENCIO Report Released Date/Time: Sep 16, 2023 06:52 PM Reporting Lab: [address] [address] Performing Lab: [address] [address] UA COLOR Light-Yellow Yellow UA APPEARANCE Clear [...] 26, 2023 09:00 AM [facility]ACCO FORMER USER [facility] Tobacco Use History This section includes a history of the smoking, or tobacco-related health factors, that were collected on or before the date of the Encounter. The data comes from the [place] facility where the Encounter took place. Date/Time Smoking Status/Tobacco Use Comment F acility Sep 26, 2023 09:00 AM VA-TOBACCO QUIT 15 YRS OR MORE [facility] [place] [facility] Oct 18, 2022 03:16 PM VA-TOBACCO FORMER USER [facility] [place] [facility] Oct 18, 2022 03:16 PM VA-TOBACCO QUIT 15 YRS OR MORE [facility] [place] [facility] Nov 12, 2021 10:30 AM VA-TOBACCO FORMER USER [facility] [place] [facility] Nov 12, 2021 10:30 AM VA-TOBACCO QUIT 5 TO < 15 YRS [facility] [place] [facility] Oct 01, 2020 11:02 AM VA-TOBACCO FORMER USER [facility] [place] [facility] Oct 01, 2020 11:02 AM VA-TOBACCO QUIT 15 YRS OR MORE [facility] [place] [facility] Oct 25, 2019 11:30 AM VA-TOBACCO FORMER USER [facility] [place] [facility] Oct 25, 2019 11:30 AM VA-TOBACCO QUIT 5 TO < 15 YRS [facility] [place] [facility] Sep 07, 2018 09:43 AM VA-TOBACCO FORMER USER [facility] [place] [facility] Sep 07, 2018 09:43 AM VA-TOBACCO QUIT 5 TO < 15 YRS [facility] [place] [facility] Apr 25, 2018 02:08 PM VA-TOBACCO USE DEC LINED TO ANSWER [facility] [place] [facility] Radiology Reports: +/- 30 days of [...] the Encounter. The data comes from all [facility] treatment facilities. Date/Time Radiology Report Provider Source Oct 25, 2023 09:[address] PULMONARY NODULES W/O CONTRAST: NAINA BREEN [id number] -[id number] M Exm Date: OCT 25, 2023@09:53 Req Phys: NITISH ASENCIO Pat Loc: CWM/NO/PACT 2 (Req'g Loc) Img Loc: [facility]/CT Service: Unknown [facility] [place] [facility] [place] [address] (Case [id number] COMPLETE) CT THORAX W/O CONT (CT Detailed) CPT:54599 Reason for Study: look for cancer Clinical History: Report Status: Verified Date Reported: OCT 25, 2023 Date Verified: OCT 25, 2023 Director Oncology E-Sig:/ES/RONNIE COLMENARES JR Report: Study: Noncontrast CT [...] Interpreting Staff: RONNIE COLMENARES JR, Radiologist (Director Oncology) /RONNIE WOLFE JR [facility] Encounter Notes: All associated encounter notes This section contains the clinical notes associated to the Encounter. Date/Time Encounter Note(s) Provider Source Oct 10, 2023 04:05 PM PHYSICIAN NOTE: LOCAL TITLE: NOTE STANDARD TITLE: PHYSICIAN NOTE DATE OF NOTE: OCT 10, 2023@16:05 ENTRY DATE: OCT 10, 2023@16:06:10 AUTHOR: NITISH ASENCIO EXP COSIGNER: URGENCY: STATUS: COMPLETED Patient letter dated today emailed to patient /ta/ Nitish Gallegos. MD [place] Staff Physician Signed: 10/10/2023 16:06 NITISH ASENCIO [facility]
--- OUTSIDE RECORDS SUMMARY | 2024-02-15 17:26 | XMS_ITS | Encounter Summary ---
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 Role Phone ROSELYN PEREZ Primary [...] [id number] NOEMI BREEN ERT PATIENT MEDICARE (WNR) MEDICARE (M) PART B Feb 13, 2019 PART B [id number] NOEMI BREEN ERT PATIENT MEDICARE (WNR) MEDICARE (M) PART A Feb 13, 2019 PART A [id number] NOEMI BREEN ERT PATIENT MEDICARE (WNR) MEDICARE (M) PART A Feb 13, 2019 PART A [id number] NOEMI BREEN ERT PATIENT MEDICARE (WNR) MEDICARE (M) PART B Feb 13, 2019 PART B [id number] [id number] NOEMI BREEN ERT PATIENT MEDICARE (WNR) MEDICARE (M) PART A Feb 13, 2019 PART A [id number] NOEMI BREEN ERT PATIENT MEDICARE (WNR) MEDICARE (M) PART B Feb 13, 2019 PART B [id number] NOEMI BREEN ERT PATIENT FOR LIFE TFL* Feb 13, 2019 [id number] [phone] NOEMI BREEN ERT PATIENT FOR LIFE SUPPLEMEN SHAI TFL Feb 13, 2019 [facility] [id number] NOEMI BREEN ERT PATIENT -FO R-LIFE DIREC T CARE Oct 05, 2022 [facility] [id number] NOEMI BREEN ERT PATIENT Selected Encounter This section includes the information on record at [place] for the Encounter. Date/Time Encounter Type Encounter Description Reason Pro vider Source Oct 13, 2023 04:26 PM Outpatient Encounter PRIMARY CARE/MEDICINE IHE Encounter Template Text not used by [place] Plan of Treatment: Future Appointments (+ 6 months) and Future Tests (+/- 45 days) The Plan of Treatment section includes future care activities for the patient from all [place] treatmentfacilities. This section includes future appointments and future orders which are active, pending or scheduled. Future Appointments This section includes appointments that were scheduled to occur 6 months from the date of the Encounter, up to a maximum of 20 appointments. The data comes from all [place] treatment facilities. Appointment Date/Time Appointment Type Appointme nt Facility Name Oct 21, 2023 09:00 AM AMBULATORY - MEDICINE [place] [facility] [place] [facility] Oct 25, 2023 10:00 AM AMBULATORY - NONE [place] [facility] [place] [facility] Nov 09, 2023 09:30 AM AMBULATORY - PS[place]CHIATRY [place] [facility] [place] [facility] Nov 09, 2023 11:20 AM AMBULATORY - MEDICINE [place] [facility] [place] [facility] Nov 23, 2023 03:30 PM AMBULATORY - MEDICINE [place] [facility] [place] [facility] Dec 20, 2023 02:30 PM AMBULATORY - MEDICINE [place] [facility] [place] [facility] Jan 01, 2024 02:00 PM AMBULATORY - MEDICINE [facility] Mar 19, 2024 01:00 PM AMBULATORY - PSYCHIATRY [facility] Lab Results: +/- 30 days of the encounter This section includes the Chemistry and Hematology Lab Results on record with [place] for the patient. Radiology Reports and Pathology Reports are provided separately, in subsequent sections. Lab Results This section contains the Chemistry/Hematology Results that were resulted 30 days before or 30 daysafter the date of the Encounter. Date/Time Source Result Type Result - Unit Interpretation Reference Range Comment Oct 02, 2023 08:57 AM [facility] VITAMIN B-1 (THIAMINE)-(QU) Specimen Type: PLASMA Comment: Vitamin supplementation within 24 hours prior to blood draw may affect the accuracy of the results. This test was developed and its analytical performance characteristics have been determined by [employer] [place], [place]. It has not been cleared or approved by the U.S. Food and Drug Administration. This assay has been validated pursuant to the CLIA regulations and is used for clinical purposes. Test Performed by [facility], [employer] [facility], [address] [place] [address] Angus Mendez M.D., Ph.D., Director of Laboratories , CLIA [id number] TEST PERFORMED AT: , Ordering Provider: NITISH ASENCIO Report Released Date/Time: Sep 16, 2023 06:52 PM Reporting Lab: [facility] [address] [facility] [address] Performing Lab: [facility] [address] [address] VITAMIN B-1 (THIAMINE)-(Q U) 22 nmol/L -Oct 02, 2023 08:57 AM [facility] FOLATE (WROX) Specimen Type: SERUM No comment entered. Ordering Provider: NITISH ASENCIO Report Released Date/Time: Sep 16, 2023 06:52 PM Reporting Lab: [facility] [address] [facility] [address] Performing Lab: [facility] [address] [facility] [address] FOLATE (WROX) 9.92 ng/mL >5.2 Oct 02, 2023 08:57 AM [facility] TSH Specimen Type: SERUM No comment entered. Ordering Provider: NITISH ASENCIO Report Released Date/Time: Sep 16, 2023 06:52 PM Reporting Lab: [facility] [address] [facility] [address] Performing Lab: [facility] [address] [facility] [address] TSH 0.78 u[IU]/mL 0.35-5.00 Oct 02, 2023 08:57 AM [facility] LIPID PANEL FASTING Specimen Type: SERUM No comment entered. Ordering Provider: NITISH ASENCIO Report Released Date/Time: Sep 16, 2023 06:52 PM Reporting Lab: [facility] [address] [facility] [address] Performing Lab: [facility] [address] [facility] [address] CHOLESTEROL 185 mg/dL TRIGLYCERIDE 272 mg/dL H 0-150 LDL calculated 96 mg/dL 0-129 CHOL/HDL 5.3 HDL CHOLESTEROL 35 mg/dL L 40-60 Oct 02, 2023 08:57 AM [facility] LIVER FUNCTION Specimen Type: SERUM No comment entered. Ordering Provider: NITISH ASENCIO Report Released Date/Time: Sep 16, 2023 06:52 PM Reporting Lab: [facility] [address] [facility] [address] Performing Lab: [facility] [address] [address] PROTEIN,TOTAL 6.9 g/dL 6.0-8.3 ALBUMIN 4.0 g/dL 3.5-5.0 ALKALINE PHOSPHATASE 86 U/L 40-150 AST 13 U/L 5-34 ALT 21 U/L BILIRUBIN, TOTAL 0.8 mg/dL 0.2-1.2 Oct 02, 2023 08:57 AM [facility] PSA Specimen Type: SERUM No comment entered. Ordering Provider: NITISH ASENCIO Report Released Date/Time: Sep 16, 2023 06:52 PM Reporting Lab: [facility] [address] [facility] [address] Performing Lab: [facility] [address] [address] PSA 0.53 ng/mL 0.00-4.00 Oct 02, 2023 08:57 AM [facility] BASIC METABOLIC PANEL (fasting) Specimen Type: SERUM No comment entered. Ordering Provider: NITISH ASENCIO Report Released Date/Time: Sep 16, 2023 06:52 PM Reporting Lab: [address] [address] Performing Lab: [address] [address] UREA NITROGEN 24 mg/dL 7-25 GLUCOSE 99 mg/dL 65-100 SODIUM 137 mmol/L 135-145 POTASSIUM 4.4 mmol/L 3.5-5.0 CHLORIDE 104 mmol/L 100-110 CO2 22 meq/L 20-30 CREATININE, Serum 1.99 mg/dL H 0.50-1.40 eGFR(CKD-EPI 2020) 36 mL/min L >60 Oct 02, 2023 08:57 AM [facility] CALCIUM Specimen Type: SERUM No comment entered. Ordering Provider: NITISH ASENCIO Report Released Date/Time: Sep 16, 2023 06:52 PM Reporting Lab: [facility] [address] Performing Lab: [facility] [address] CALCIUM 9.1 mg/dL 8.5-10.2 Oct 02, 2023 08:57 AM [facility] VITAMIN B12 Specimen Type: SERUM No comment entered. Ordering Provider: NITISH ASENCIO Report Released Date/Time: Sep 16, 2023 06:52 PM Reporting Lab: [address] [address] Performing Lab: [facility] [address] [facility] [address] VITAMIN B12 1105 pg/mL H 200-900 Oct 02, 2023 08:57 AM [facility] MICROSCOPIC AUTOMATED, URINE Specimen Type: URINE Comment: If Glucose = >500 and Ketones are positive, please alert the Physician. Ordering Provider: NITISH ASENCIO Report Released Date/Time: Sep 16, 2023 06:52 PM Reporting Lab: [facility] [address] [facility] [address] Performing Lab: [address] [address] UA WBC 0-5 /[HPF] 0-5 UA MUCUS FEW /[LPF] Trace UA RBC 0-2 /[HPF] 0-3 Oct 02, 2023 08:57 AM [facility] CBC AND DIFF (AUTO) Specimen Type: BLOOD No comment entered. Ordering Provider: NITISH ASENCIO Report Released Date/Time: Sep 16, 2023 06:52 PM Reporting Lab: [facility] [address] [facility] [address] Performing Lab: [address] [address] WBC 6.61 10*3/uL 4.50-11.00 RBC 4.42 10*6/uL [...] 10*3/uL 0.00-0.00 Oct 02, 2023 08:57 AM [facility] URINALYSIS CLEAN CATCH Specimen Type: URINE Comment: If Glucose = >500 and Ketones are positive, please alert the Physician. Ordering Provider: NITISH ASENCIO Report Released Date/Time: Sep 16, 2023 06:52 PM Reporting Lab: [address] [address] Performing Lab: [address] [address] UA COLOR Light-Yellow Yellow UA APPEARANCE Clear [...] and tobacco- related health factors from the [place] facility where the Encounter took place. Current Smoking Status This section includes the most current smoking, or tobacco-related health factor, from the [place] facility where the Encounter took place. Date/Time Current Smoking Status Comment Randal hyde Sep 26, 2023 09:00 AM [place]-TOBACCO FORMER USER [facility] Tobacco Use History This section includes a history of the smoking, or tobacco-related health factors, that were collected on or before the date of the Encounter. The data comes from the [place] facility where the Encounter took place. Date/Time Smoking Status/Tobacco Use Comment F acility Sep 26, 2023 09:00 AM VA-TOBACCO QUIT 15 YRS OR MORE [facility] [place] [facility] Oct 18, 2022 03:16 PM VA-TOBACCO FORMER USER [facility] [place] [facility] Oct 18, 2022 03:16 PM VA-TOBACCO QUIT 15 YRS OR MORE [facility] [place] [facility] Nov 12, 2021 10:30 AM VA-TOBACCO FORMER USER [facility] [place] [facility] Nov 12, 2021 10:30 AM VA-TOBACCO QUIT 5 TO < 15 YRS [facility] [place] [facility] Oct 01, 2020 11:02 AM VA-TOBACCO FORMER USER [facility] [place] [facility] Oct 01, 2020 11:02 AM VA-TOBACCO QUIT 15 YRS OR MORE [facility] [place] [facility] Oct 25, 2019 11:30 AM VA-TOBACCO FORMER USER [facility] [place] [facility] Oct 25, 2019 11:30 AM VA-TOBACCO QUIT 5 TO < 15 YRS [facility] [place] [facility] Sep 07, 2018 09:43 AM VA-TOBACCO FORMER USER [facility] [place] [facility] Sep 07, 2018 09:43 AM VA-TOBACCO QUIT 5 TO < 15 YRS [facility] [place] [facility] Apr 25, 2018 02:08 PM VA-TOBACCO USE DEC LINED TO ANSWER [place] [facility] [place] [facility] Radiology Reports: +/- 30 days [...] the Encounter. The data comes from all [place] treatment facilities. Date/Time Radiology Report Provider Source Oct 25, 2023 09:[address] PULMONARY NODULES W/O CONTRAST: NAINA BREEN [id number] -[id number] M Exm Date: OCT 25, 2023@09:53 Req Phys: NITISH ASENCIO Pat Loc: [facility]/NO/PACT 2 (Req'g Loc) Img Loc: [facility]/CT Service: Unknown [facility] [place] [facility] [place] [address] (Case [id number] COMPLETE) CT THORAX W/O CONT (CT Detailed) CPT:70738 Reason for Study: look for cancer Clinical History: Report Status: Verified Date Reported: OCT 25, 2023 Date Verified: OCT 25, 2023 Accounting Manager E-Sig:/ES/RONNIE COLMENARES JR Report: Study: Noncontrast CT [...] Primary Interpreting Staff: RONNIE COLMENARES JR, Radiologist (Accounting Manager) /RONNIE WOLFE JR [facility] Encounter Notes: All associated encounter notes This section contains the clinical notes associated to the Encounter. Date/Time Encounter Note(s) Provider Source Oct 13, 2023 04:29 PM PHYSICIAN NOTE: LOCAL TITLE: NOTE STANDARD TITLE: PHYSICIAN NOTE DATE OF NOTE: OCT 13, 2023@16:29 ENTRY DATE: OCT 13, 2023@16:29:13 AUTHOR: NITISH ASENCIO EXP COSIGNER: URGENCY: STATUS: COMPLETED Reordered community care consult urology Dr. Billy for management of prostate cancer and renal cell carcinoma. /ta/ Nitish Asencio MD Staff Physician Signed: 10/13/2023 16:29 NITISH ASENCIO [facility]
--- OUTSIDE RECORDS SUMMARY | 2024-02-15 17:26 | XMS_ITS | Encounter Summary ---
Author Name [facility] [place] Address [address] [place] [address] Care Team Providers Care Pharmacy Assistant Name Role Phone ROSELYN PEREZ Primary [...] TRICA RE [id number] NOEMI BREEN ERT PATIENT MEDICARE (WNR) MEDICARE (M) PART B Feb 13, 2019 PART B [id number] NOEMI BREEN ERT PATIENT MEDICARE (WNR) MEDICARE (M) PART A Feb 13, 2019 PART A [id number] NOEMI BREEN ERT PATIENT MEDICARE (WNR) MEDICARE (M) PART A Feb 13, 2019 PART A [id number] [phone] NOEMI BREEN ERT PATIENT MEDICARE (WNR) MEDICARE (M) PART B Feb 13, 2019 PART B [id number] NOEMI BREEN ERT PATIENT MEDICARE (WNR) MEDICARE (M) PART A Feb 13, 2019 PART A [id number] NOEMI BREEN ERT PATIENT MEDICARE (WNR) MEDICARE (M) PART B Feb 13, 2019 PART B [id number] NOEMI BREEN ERT PATIENT FOR LIFE TFL* Feb 13, 2019 [id number] NOEMI BREEN ERT PATIENT FOR LIFE SUPPLEMEN SHAI TFL Feb 13, 2019 [facility] [id number] 90 NOEMI BREEN ERT PATIENT -FO R-LIFE DIREC T CARE Oct 05, 2022 [facility] [id number] 90 NOEMI BREEN ERT PATIENT Selected Encounter This section includes the information on record at [place] for the Encounter. Date/Time Encounter Type Encounter Description Reason Pro vider Source May 08, 2023 12:00 AM Outpatient Encounter EVENT (HISTORICAL) IHE Encounter Template Text not used by [place] [...] REHAB MEDICIN E [facility] [place] [facility] June 20, 2023 09:00 AM AMBULATORY - MEDICINE [facility] [place] [facility] Jul 26, 2023 10:30 AM AMBULATORY - NONE [facility] [place] [facility] Jul 26, 2023 11:00 AM AMBULATORY - PSYCHIATRY [facility] [place] [facility] Jul 26, 2023 11:30 AM AMBULATORY - NONE [facility] [place] [facility] Aug 08, 2023 08:30 AM AMBULATORY - PSYCHIATRY [facility] [place] [facility] Aug 22, 2023 11:30 AM AMBULATORY - PSYCHIATRY [facility] [place] [facility] Sep 26, 2023 09:00 AM AMBULATORY - MEDICINE [facility] [place] [facility] Oct 21, 2023 09:00 AM AMBULATORY [facility] MEDICINE [place] [facility] [place] [facility] Oct 25, 2023 10:00 AM [facility] Active, Pending, and Scheduled Orders This section [...] Order CBC AND DIFF (AUTO) BLOOD (LAV-BLOOD) [facility] [place] [facility] June 20, 2023 12:00 AM Laboratory - Chemistry Order LIVER FUNCTION BLOOD (SST-SERUM) [facility] [place] [facility] June 20, 2023 12:00 AM Laboratory - Chemistry Order BASIC METABOLIC PANEL (fasting) BLOOD (SST-SERUM) [facility] [place] [facility] June 20, 2023 12:00 AM Laboratory - Chemistry Order LIPID PANEL FASTING BLOOD (SST-SERUM) [facility] [place] [facility] June 20, 2023 12:00 AM Laboratory - Chemistry Order PSA BLOOD (SST-SERUM) [facility] [place] [facility] June 20, 2023 12:00 AM Laboratory - Chemistry Order TSH BLOOD (SST-SERUM) [facility] [place] [facility] June 20, 2023 12:00 AM Laboratory - Chemistry Order URINALYSIS CLEAN CATCH URINE [facility] [place] [facility] June 20, 2023 12:00 AM Laboratory - Chemistry Order CALCIUM BLOOD (SST-SERUM) [facility] [place] [facility] June 20, 2023 12:00 AM Laboratory - Chemistry Order VITAMIN B12 BLOOD (SST-SERUM) [facility] [place] [facility] June 20, 2023 12:00 AM Laboratory - Chemistry Order FOLATE (WROX) BLOOD (SST-SERUM) SP [facility] Lab Results: +/- 30 days of the encounter This section includes the Chemistry and Hematology Lab Results on record with [place] for the patient. Radiology Reports and Pathology Reports are provided separately, in subsequent sections. Lab Results This section contains the Chemistry/Hematology Results that were resulted 30 days before or 30 daysafter the date of the Encounter. Date/Time Source Result Type Result - Unit Interpretation Reference Range Comment Apr 28, 2023 11:03 AM [facility] LIPID PANEL, NON FASTING Specimen Type: SERUM No comment entered. Ordering Provider: ROSHAN MESA MD Report Released Date/Time: Apr 28, 2023 10:40 AM Reporting Lab: [facility] [address] [facility] [address] Performing Lab: [address] [address] CHOLESTEROL 183 mg/dL TRIGLYCERIDE 304 mg/dL H 0-150 LDL calculated Reflex to dLDL mg/dL 0-129 CHOL/HDL 4.9 HDL CHOLESTEROL 37 mg/dL L 40-60 LDL DIRECT 110 mg/dL Social History: Smoking Status (Most current) and Tobacco Use (All prior to encounter date) This section includes the most current, and the historical, smoking and tobacco- related health factors from the [place] facility where the Encounter took place. Current Smoking Status This section includes the most current smoking, or tobacco-related health factor, from the [place] facility where the Encounter took place. Date/Time Current Smoking Status Comment Randal ity Oct 18, 2022 03:16 PM [place]-TOBAC[place] QUIT 15 YRS OR MORE [facility] Tobacco Use History This section includes a history of the smoking, or tobacco-related health factors, that were collected on or before the date of the Encounter. The data comes from the [place] facility where the Encounter took place. Date/Time Smoking Status/Tobacco Use Comment F alejandro Oct 18, 2022 03:16 PM [place]-TOBAC[place] QUIT 15 YRS OR MORE [facility] Nov 12, 2021 10:30 AM [place]-TOBACCO FORMER USER [facility] Nov 12, 2021 10:30 AM VA-TOBACCO QUIT 5 TO < 15 YRS [facility] [place] [facility] Oct 01, 2020 11:02 AM VA-TOBACCO FORMER USER [facility] [place] [facility] Oct 01, 2020 11:02 AM VA-TOBACCO QUIT 15 YRS OR MORE [facility] [place] [facility] Oct 25, 2019 11:30 AM VA-TOBACCO FORMER USER [facility] [place] [facility] Oct 25, 2019 11:30 AM VA-TOBACCO QUIT 5 TO < 15 YRS [facility] [place] [facility] Sep 07, 2018 09:43 AM VA-TOBACCO FORMER USER [facility] [place] [facility] Sep 07, 2018 09:43 AM VA-TOBACCO QUIT 5 TO < 15 YRS [facility] [place] [facility] Apr 25, 2018 02:08 PM VA-TOBACCO USE DEC LINED TO ANSWER [place] [facility] [place] [facility] Encounter Notes: All associated encounter notes This section contains the clinical notes associated to the Encounter. Date/Time Encounter Note(s) Provider Source May 08, 2023 12:00 AM NONVA DIAGNOSTIC S ABDOULAYE REPORT: LOCAL TITLE: NON-VA DIAGNOSTICS STANDARD TITLE: NONVA DIAGNOSTIC STUDY REPORT DATE OF NOTE: MAY 08, 2023 ENTRY DATE: AUG 12, 2023@09:58:15 AUTHOR: ZULEIKA CAR EXP COSIGNER: URGENCY: STATUS: COMPLETED VistA Imaging - Scanned Document SCANNED DOCUMENT SIGNATURE NOT REQUIRED Electronically Filed: 08/12/2023 by: ZULEIKA PORRAS [place] [facility]
--- OUTSIDE RECORDS SUMMARY | 2024-02-15 17:26 | XMS_ITS | Encounter Summary ---
Author Name [facility] [place] Organization [facility] [place] Address [address] [place] [address] Care Team Providers Care Burglar Alarm Installer Name Role Phone ROSELYN PEREZ Primary Care [...] TRICA RE DODA WNR Oct [facility], [id number] NOEMI BREEN ERT PATIENT MEDICARE (WNR) MEDICARE (M) PART B Feb 13, 2019 PART B [id number] NOEMI BREEN ERT PATIENT MEDICARE (WNR) MEDICARE (M) PART A Feb 13, 2019 PART A [id number] [phone] NOEMI BREEN ERT PATIENT MEDICARE (WNR) MEDICARE (M) PART A Feb 13, 2019 PART A [id number] [phone] NOEMI BREEN ERT PATIENT MEDICARE (WNR) MEDICARE (M) PART B Feb 13, 2019 PART B [id number] [phone] NOEMI BREEN ERT PATIENT MEDICARE (WNR) MEDICARE (M) PART A Feb 13, 2019 PART A [id number] NOEMI BREEN ERT PATIENT MEDICARE (WNR) MEDICARE (M) PART B Feb 13, 2019 PART B [id number] [phone] NOEMI BREEN ERT PATIENT FOR LIFE TFL* Feb 13, 2019 [id number] NOEMI BREEN ERT PATIENT FOR LIFE SUPPLEMEN SHAI TFL Feb 13, 2019 [facility] LIFE [id number] NOEMI BREEN ERT PATIENT -FO R-LIFE DIREC T CARE Oct 05, 2022 FOR LIFE [id number] [phone] NOEMI BREEN ERT PATIENT Selected Encounter This section includes the information on record at [place] for the Encounter. Date/Time Encounter Type Encounter Description Reason Pro vider Source Oct 25, 2023 05:07 PM Outpatient Encounter PRIMARY CARE/MEDICINE IHE Encounter [...] Date/Time Appointment Type Appointme nt Facility Name Nov 09, 2023 09:30 AM AMBULATORY - [place]ATRY [facility] [place] [facility] Nov 09, 2023 11:20 AM AMBULATORY - MEDICINE [place] [facility] [place] [facility] Nov 23, 2023 03:30 PM AMBULATORY - MEDICINE [place] [facility] [place] [facility] Dec 20, 2023 02:30 PM AMBULATORY - MEDICINE [place] [facility] [place] [facility] Jan 01, 2024 02:00 PM AMBULATORY - MEDICINE [place] [facility] [place] [facility] Mar 19, 2024 01:00 PM AMBULATORY - PS[place]CHIATRY [facility] [place] [facility] Lab Results: +/- 30 days of [...] Range Comment Oct 02, 2023 08:57 AM [facility] VITAMIN B-1 (THIAMINE)-(QU) Specimen Type: PLASMA Comment: Vitamin supplementation within 24 hours prior to blood draw may affect the accuracy of the results. This test was developed and its analytical performance characteristics have been determined by [employer] [place], [place]. It has not been cleared or approved by the U.S. Food and Drug Administration. This assay has been validated pursuant to the CLIA regulations and is used for clinical purposes. Test Performed by [facility], [facility], [address] [place] [address] Angus Mendez M.D., Ph.D., Director of Laboratories , CLIA [id number] TEST PERFORMED AT: , Ordering Provider: NITISH ASENCIO Report Released Date/Time: Sep 16, 2023 06:52 PM Reporting Lab: [facility] [address] [address] Performing Lab: [facility] [address] [address] VITAMIN B-1 (THIAMINE)-(Q U) 22 nmol/L 8-30 Oct 02, 2023 08:57 AM [facility] FOLATE (WROX) Specimen Type: SERUM No comment entered. Ordering Provider: NITISH ASENCIO Report Released Date/Time: Sep 16, 2023 06:52 PM Reporting Lab: [facility] [address] [address] Performing Lab: [facility] [address] [address] FOLATE (WROX) 9.92 ng/mL >5.2 Oct 02, 2023 08:57 AM [facility] TSH Specimen Type: SERUM No comment entered. Ordering Provider: NITISH ASENCIO Report Released Date/Time: Sep 16, 2023 06:52 PM Reporting Lab: [facility] [address] [address] Performing Lab: [facility] [address] TSH 0.78 u[IU]/mL 0.35-5.00 Oct 02, 2023 08:57 AM [facility] LIPID PANEL FASTING Specimen Type: SERUM No comment entered. Ordering Provider: NITISH ASENCIO Report Released Date/Time: Sep 16, 2023 06:52 PM Reporting Lab: [facility] [address] [address] Performing Lab: [facility] [address] [address] CHOLESTEROL 185 mg/dL TRIGLYCERIDE 272 mg/dL H 0-150 LDL calculated 96 mg/dL 0-129 CHOL/HDL 5.3 HDL CHOLESTEROL 35 mg/dL L 40-60 Oct 02, 2023 08:57 AM [facility] PSA Specimen Type: SERUM No comment entered. Ordering Provider: NITISH ASENCIO Report Released Date/Time: Sep 16, 2023 06:52 PM Reporting Lab: [facility] [address] [address] Performing Lab: [facility] [address] [address] PSA 0.53 ng/mL 0.00-4.00 Oct 02, 2023 08:57 AM [facility] LIVER FUNCTION Specimen Type: SERUM No comment entered. Ordering Provider: NITISH ASENCIO Report Released Date/Time: Sep 16, 2023 06:52 PM Reporting Lab: [facility] [address] [address] Performing Lab: [facility] [address] PROTEIN,TOTAL 6.9 g/dL 6.0-8.3 ALBUMIN 4.0 g/dL 3.5-5.0 ALKALINE PHOSPHATASE 86 U/L 40-150 AST 13 U/L 5-34 ALT 21 U/L BILIRUBIN, TOTAL 0.8 mg/dL 0.2-1.2 Oct 02, 2023 08:57 AM [facility] BASIC METABOLIC PANEL (fasting) Specimen Type: SERUM No comment entered. Ordering Provider: NITISH ASENCIO Report Released Date/Time: Sep 16, 2023 06:52 PM Reporting Lab: [facility] [address] [address] Performing Lab: [facility] [address] UREA NITROGEN 24 mg/dL 7-25 GLUCOSE 99 mg/dL 65-100 SODIUM 137 mmol/L 135-145 POTASSIUM 4.4 mmol/L 3.5-5.0 CHLORIDE 104 mmol/L 100-110 CO2 22 meq/L 20-30 CREATININE, Serum 1.99 mg/dL H 0.50-1.40 eGFR(CKD-EPI 2020) 36 mL/min L >60 Oct 02, 2023 08:57 AM [facility] CALCIUM Specimen Type: SERUM No comment entered. Ordering Provider: NITISH ASENCIO Report Released Date/Time: Sep 16, 2023 06:52 PM Reporting Lab: [facility] [address] [address] Performing Lab: [facility] [address] CALCIUM 9.1 mg/dL 8.5-10.2 Oct 02, 2023 08:57 AM [facility] VITAMIN B12 Specimen Type: SERUM No comment entered. Ordering Provider: NITISH ASENCIO Report Released Date/Time: Sep 16, 2023 06:52 PM Reporting Lab: [facility] [address] [address] Performing Lab: [facility] [address] VITAMIN B12 1105 pg/mL H 200-900 Oct 02, 2023 08:57 AM [facility] MICROSCOPIC AUTOMATED, URINE Specimen Type: URINE Comment: If Glucose = >500 and Ketones are positive, please alert the Physician. Ordering Provider: NITISH ASENCIO Report Released Date/Time: Sep 16, 2023 06:52 PM Reporting Lab: [facility] [address] [address] Performing Lab: [facility] [address] [address] UA WBC 0-5 /[HPF] 0-5 UA MUCUS FEW /[LPF] Trace UA RBC 0-2 /[HPF] 0-3 Oct 02, 2023 08:57 AM [facility] CBC AND DIFF (AUTO) Specimen Type: BLOOD No comment entered. Ordering Provider: NITISH ASENCIO Report Released Date/Time: Sep 16, 2023 06:52 PM Reporting Lab: [facility] [address] [address] Performing Lab: [facility] [address] [address] WBC 6.61 10*3/uL 4.50-11.00 RBC 4.42 10*6/uL [...] 10*3/uL 0.00-0.00 Oct 02, 2023 08:57 AM [facility] URINALYSIS CLEAN CATCH Specimen Type: URINE Comment: If Glucose = >500 and Ketones are positive, please alert the Physician. Ordering Provider: NITISH ASENCIO Report Released Date/Time: Sep 16, 2023 06:52 PM Reporting Lab: [address] [address] Performing Lab: [address] [address] UA COLOR Light-Yellow Yellow UA APPEARANCE Clear [...] Date/Time Current Smoking Status Comment Facil ity Sep 26, 2023 09:00 AM [place]-TOBACCO QUIT 15 YRS OR MORE [facility] Tobacco Use History This section includes a history of the smoking, or tobacco-related health factors, that were collected on or before the date of the Encounter. The data comes from the [place] facility where the Encounter took place. Date/Time Smoking Status/Tobacco Use Comment F acility Sep 26, 2023 09:00 AM [place]-TOBACCO QUIT 15 YRS OR MORE [facility] [place] [facility] Oct 18, 2022 03:16 PM VA-TOBACCO FORMER USER [facility] [place] [facility] Oct 18, 2022 03:16 PM VA-TOBACCO QUIT 15 YRS OR MORE [facility] [place] [facility] Nov 12, 2021 10:30 AM VA-TOBACCO FORMER USER [facility] [place] [facility] Nov 12, 2021 10:30 AM VA-TOBACCO QUIT 5 TO < 15 YRS [facility] [place] [facility] Oct 01, 2020 11:02 AM VA-TOBACCO FORMER USER [facility] [place] [facility] Oct 01, 2020 11:02 AM VA-TOBACCO QUIT 15 YRS OR MORE [facility] [place] [facility] Oct 25, 2019 11:30 AM VA-TOBACCO FORMER USER [facility] [place] [facility] Oct 25, 2019 11:30 AM VA-TOBACCO QUIT 5 TO < 15 YRS [facility] [place] [facility] Sep 07, 2018 09:43 AM VA-TOBACCO FORMER USER [facility] [place] [facility] Sep 07, 2018 09:43 AM VA-TOBACCO QUIT 5 TO < 15 YRS [facility] [place] [facility] Apr 25, 2018 02:08 PM VA-TOBACCO USE DEC LINED TO ANSWER [facility] [place] [facility] Radiology Reports: +/- 30 days of [...] the Encounter. The data comes from all [place] treatment facilities. Date/Time Radiology Report Provider Source Oct 25, 2023 09:[address] PULMONARY NODULES W/O CONTRAST: NAINA BREEN [id number] -[id number] M Exm Date: OCT 25, 2023@09:53 Req Phys: NITISH ASENCIO Loc: CWM/NO/PACT 2 (Req'g Loc) Img Loc: NHM/CT Service: Unknown [place] [facility] [address] (Case [id number] COMPLETE) CT THORAX W/O CONT (CT Detailed) CPT:68751 Reason for Study: look for cancer Clinical History: Report Status: Verified Date Reported: OCT 25, 2023 Date Verified: OCT 25, 2023 Cloth Measurer Machine E-Sig:/ES/RONNIE COLMENARES JR Report: Study: Noncontrast CT [...] Primary Interpreting Staff: RONNIE COLMENARES JR, Radiologist (Cloth Measurer Machine) /RONNIE WOLFE JR [facility] Encounter Notes: All associated encounter notes This section contains the clinical notes associated to the Encounter. Date/Time Encounter Note(s) Provider Source Oct 25, 2023 05:09 PM LETTERS: LOCAL TITLE: PATIENT LETTER (T) STANDARD TITLE: LETTERS DATE OF NOTE: OCT 25, 2023@17:09 ENTRY DATE: OCT 25, 2023@17:09:30 AUTHOR: NITISH ASENCIO EXP COSIGNER: URGENCY: STATUS: COMPLETED [facility] Toll Free Number Primary Care Telephone Assistance can be reached at extension [phone] [facility] scheduling can be reached at extension [phone] [facility] scheduling can be reached at ext [phone] NAINA BREEN [address] [place] [address], [address] October 25, 2023 Dear [place], Please find enclosed a copy of recent testing. CAT scan of the chest showed small changes in the scar tissue in the lungs. It is recommended to have a follow-up CAT scan in 6 months to make sure there is no cancer. Please contact me if you have questions. Respectfully, Nitish Asencio MD Sincerely, Your Primary Care Team [facility] [address] [facility] [address] [place] [address] [place], [place] [id number] [facility] [address] [place] [address],2[address] [place] [address] [place] [address] [phone] [facility] [address] [facility],[address] [place] [address] [place] [address] NITISH ASENCIO [facility]
--- OUTSIDE RECORDS SUMMARY | 2024-02-15 17:27 | XMS_ITS | Encounter Summary ---
Author Name [facility] ([place]) Address [address] [place] [address] Care Team Providers Care Filter Tank Tender Helper Name Role Phone ROSELYN PEREZ Primary [...] TRICA [id number] NOEMI BREEN ERT PATIENT MEDICARE (WNR) MEDICARE (M) PART B Feb 13, 2019 PART B [id number] NOEMI BREEN ERT PATIENT MEDICARE (WNR) MEDICARE (M) PART A Feb 13, 2019 PART A [id number] NOEMI BREEN ERT PATIENT MEDICARE (WNR) MEDICARE (M) PART A Feb 13, 2019 PART A [id number] NOEMI BREEN ERT PATIENT MEDICARE (WNR) MEDICARE (M) PART B Feb 13, 2019 PART B [id number] NOEMI BREEN ERT PATIENT MEDICARE (WNR) MEDICARE (M) PART A Feb 13, 2019 PART A [id number] NOEMI BREEN ERT PATIENT MEDICARE (WNR) MEDICARE (M) PART B Feb 13, 2019 PART B [id number] NOEMI BREEN ERT PATIENT FOR LIFE TFL* Feb 13, 2019 [id number] [phone] NOEMI BREEN ERT PATIENT FOR LIFE SUPPLEMEN SHAI TFL Feb 13, 2019 FOR LIFE [id number] NOEMI BREEN ERT PATIENT -FO R-LIFE DIREC T CARE Oct 05, 2022 [facility] LIFE [id number] 90 NOEMI BREEN ERT PATIENT Selected Encounter This section includes the information on record at [place] for the Encounter. Date/Time Encounter Type Encounter Description Reason Pro vider Source Oct 26, 2023 04:09 PM Outpatient Encounter PRIMARY CARE/MEDICINE IHE Encounter Template Text not used by [place] Plan of Treatment: Future Appointments (+ 6 [...] 09, 2023 09:30 AM AMBULATORY - [place]ATRY [place] [facility] [place] [facility] Nov 09, 2023 11:20 AM AMBULATORY - MEDICINE [place] [facility] [place] [facility] Nov 23, 2023 03:30 PM AMBULATORY - MEDICINE [place] [facility] [place] [facility] Dec 20, 2023 02:30 PM AMBULATORY - MEDICINE [place] [facility] [place] [facility] Jan 01, 2024 02:00 PM AMBULATORY - MEDICINE [place] [facility] [place] [facility] Mar 19, 2024 01:00 PM AMBULATORY - PS[place]IATRY [place] [facility] [place] [facility] Apr 24, 2024 01:30 PM AMBULATORY - NONE [facility] Lab Results: +/- 30 days [...] Range Comment Oct 02, 2023 08:57 AM [facility] VITAMIN B-1 (THIAMINE)-(QU) Specimen Type: PLASMA Comment: Vitamin supplementation within 24 hours prior to blood draw may affect the accuracy of the results. This test was developed and its analytical performance characteristics have been determined by [employer] [place], [place]. It has not been cleared or approved by the U.S. Food and Drug Administration. This assay has been validated pursuant to the CLIA regulations and is used for clinical purposes. Test Performed by [facility], [employer] [facility], [address] [place] [address] Angus Mendez M.D., Ph.D., Director of Laboratories , CLIA [id number] TEST PERFORMED AT: , Ordering Provider: NITISH ASENCIO Report Released Date/Time: Sep 16, 2023 06:52 PM Reporting Lab: [address] [address] Performing Lab: [facility] [address] [address] VITAMIN B-1 (THIAMINE)-(Q U) 22 nmol/L 8-Oct 02, 2023 08:57 AM [facility] FOLATE (WROX) Specimen Type: SERUM No comment entered. Ordering Provider: NITISH ASENCIO Report Released Date/Time: Sep 16, 2023 06:52 PM Reporting Lab: [facility] [address] [facility] [address] Performing Lab: [facility] [address] [facility] [address] FOLATE (WROX) 9.92 ng/mL >5.2 Oct 02, 2023 08:57 AM [facility] TSH Specimen Type: SERUM No comment entered. Ordering Provider: NITISH ASENCIO Report Released Date/Time: Sep 16, 2023 06:52 PM Reporting Lab: [facility] [address] [facility] [address] Performing Lab: [facility] [address] [facility] [address] TSH 0.78 u[IU]/mL 0.35-5.00 Oct 02, 2023 08:57 AM [facility] LIPID PANEL FASTING Specimen Type: SERUM No comment entered. Ordering Provider: NITISH ASENCIO Report Released Date/Time: Sep 16, 2023 06:52 PM Reporting Lab: [facility] [address] Performing Lab: [facility] [address] [address] CHOLESTEROL 185 mg/dL TRIGLYCERIDE 272 mg/dL H 0-150 LDL calculated 96 mg/dL 0-129 CHOL/HDL 5.3 HDL CHOLESTEROL 35 mg/dL L 40-60 Oct 02, 2023 08:57 AM [facility] PSA Specimen Type: SERUM No comment entered. Ordering Provider: NITISH ASENCIO Report Released Date/Time: Sep 16, 2023 06:52 PM Reporting Lab: [facility] [address] [address] Performing Lab: [facility] [address] [address] PSA 0.53 ng/mL 0.00-4.00 Oct 02, 2023 08:57 AM [facility] LIVER FUNCTION Specimen Type: SERUM No comment entered. Ordering Provider: NITISH ASENCIO Report Released Date/Time: Sep 16, 2023 06:52 PM Reporting Lab: [facility] [address] [address] Performing Lab: [facility] [address] [address] PROTEIN,TOTAL 6.9 g/dL 6.0-8.3 ALBUMIN 4.0 g/dL 3.5-5.0 ALKALINE PHOSPHATASE 86 U/L 40-150 AST 13 U/L 5-34 ALT 21 U/L BILIRUBIN, TOTAL 0.8 mg/dL 0.2-1.2 Oct 02, 2023 08:57 AM [facility] BASIC METABOLIC PANEL (fasting) Specimen Type: SERUM No comment entered. Ordering Provider: NITISH ASENCIO Report Released Date/Time: Sep 16, 2023 06:52 PM Reporting Lab: [address] [address] Performing Lab: [address] [address] UREA NITROGEN 24 mg/dL 7-25 GLUCOSE 99 mg/dL 65-100 SODIUM 137 mmol/L 135-145 POTASSIUM 4.4 mmol/L 3.5-5.0 CHLORIDE 104 mmol/L 100-110 CO2 22 meq/L 20-30 CREATININE, Serum 1.99 mg/dL H 0.50-1.40 eGFR(CKD-EPI 2020) 36 mL/min L >60 Oct 02, 2023 08:57 AM [facility] CALCIUM Specimen Type: SERUM No comment entered. Ordering Provider: NITISH ASENCIO Report Released Date/Time: Sep 16, 2023 06:52 PM Reporting Lab: [facility] [address] Performing Lab: [facility] [address] CALCIUM 9.1 mg/dL 8.5-10.2 Oct 02, 2023 08:57 AM [facility] VITAMIN B12 Specimen Type: SERUM No comment entered. Ordering Provider: NITISH ASENCIO Report Released Date/Time: Sep 16, 2023 06:52 PM Reporting Lab: [address] [address] Performing Lab: [facility] [address] VITAMIN B12 1105 pg/mL H 200-900 Oct 02, 2023 08:57 AM [facility] MICROSCOPIC AUTOMATED, URINE Specimen Type: URINE Comment: If Glucose = >500 and Ketones are positive, please alert the Physician. Ordering Provider: NITISH ASENCIO Report Released Date/Time: Sep 16, 2023 06:52 PM Reporting Lab: [address] [address] Performing Lab: [facility] [address] [facility] [address] UA WBC 0-5 /[HPF] 0-5 UA MUCUS FEW /[LPF] Trace UA RBC 0-2 /[HPF] 0-3 Oct 02, 2023 08:57 AM [facility] CBC AND DIFF (AUTO) Specimen Type: BLOOD No comment entered. Ordering Provider: NITISH ASENCIO Report Released Date/Time: Sep 16, 2023 06:52 PM Reporting Lab: [facility] [address] [facility] [address] Performing Lab: [address] [address] WBC 6.61 10*3/uL 4.50-11.00 RBC 4.42 10*6/uL [...] 10*3/uL 0.00-0.00 Oct 02, 2023 08:57 AM [facility] URINALYSIS CLEAN CATCH Specimen Type: URINE Comment: If Glucose = >500 and Ketones are positive, please alert the Physician. Ordering Provider: NITISH ASENCIO Report Released Date/Time: Sep 16, 2023 06:52 PM Reporting Lab: [address] [address] Performing Lab: [address] [address] UA COLOR Light-Yellow Yellow UA APPEARANCE Clear [...] Facil ity Sep 26, 2023 09:00 AM VA-TOBACCO QUIT 15 YRS OR MORE [facility] Tobacco Use History This section includes a history of the smoking, or tobacco-related health factors, that were collected on or before the date of the Encounter. The data comes from the [place] facility where the Encounter took place. Date/Time Smoking Status/Tobacco Use Comment F acility Sep 26, 2023 09:00 AM VA-TOBACCO QUIT 15 YRS OR MORE [facility] [place] [facility] Oct 18, 2022 03:16 PM VA-TOBACCO FORMER USER [facility] [place] [facility] Oct 18, 2022 03:16 PM VA-TOBACCO QUIT 15 YRS OR MORE [facility] [place] [facility] Nov 12, 2021 10:30 AM VA-TOBACCO FORMER USER [facility] [place] [facility] Nov 12, 2021 10:30 AM VA-TOBACCO QUIT 5 TO < 15 YRS [facility] [place] [facility] Oct 01, 2020 11:02 AM VA-TOBACCO FORMER USER [facility] [place] [facility] Oct 01, 2020 11:02 AM VA-TOBACCO QUIT 15 YRS OR MORE [facility] [place] [facility] Oct 25, 2019 11:30 AM VA-TOBACCO FORMER USER [facility] [place] [facility] Oct 25, 2019 11:30 AM VA-TOBACCO QUIT 5 TO < 15 YRS [facility] [place] [facility] Sep 07, 2018 09:43 AM VA-TOBACCO FORMER USER [facility] [place] [facility] Sep 07, 2018 09:43 AM VA-TOBACCO QUIT 5 TO < 15 YRS [facility] [place] [facility] Apr 25, 2018 02:08 PM VA-TOBACCO USE DEC LINED TO ANSWER [facility] [place] [facility] Radiology Reports: +/- 30 [...] the Encounter. The data comes from all [place] treatment facilities. Date/Time Radiology Report Provider Source Oct 25, 2023 09:[address] PULMONARY NODULES W/O CONTRAST: NAINA BREEN [id number] -[id number] M Exm Date: OCT 25, 2023@09:53 Req Phys: NITISH ASENCIO Loc: CWM/NO/PACT 2 (Req'g Loc) Img Loc: NHM/CT Service: Unknown [place] [facility] [place] [address] (Case [id number] COMPLETE) CT THORAX W/O CONT (CT Detailed) CPT:86494 Reason for Study: look for cancer Clinical History: Report Status: Verified Date Reported: OCT 25, 2023 Date Verified: OCT 25, 2023 Holistic Nutritionist E-Sig:/ES/RONNIE COLMENARES JR Report: Study: Noncontrast CT [...] Primary Interpreting Staff: RONNIE COLMENARES JR, Radiologist (Holistic Nutritionist) /RONNIE WOLFE JR [facility] [place] [facility] Encounter Notes: All associated encounter notes This section contains the clinical notes associated to the Encounter. Date/Time Encounter Note(s) Provider Source Oct 26, 2023 04:10 PM LETTERS: LOCAL TITLE: PATIENT LETTER (T) STANDARD TITLE: LETTERS DATE OF NOTE: OCT 26, 2023@16:10 ENTRY DATE: OCT 26, 2023@16:10:43 AUTHOR: NITISH ASENCIO EXP COSIGNER: URGENCY: STATUS: COMPLETED DEPARTMENT OF [facility] Toll Free Number Primary Care Telephone Assistance can be reached at extension [phone] [facility] scheduling can be reached at extension [phone] [facility] scheduling can be reached at ext [phone] NAINA BREEN [address] [place] [address], [phone] October 26, 2023 Dear [place], Please find enclosed a copy of recent testing. MRI without contrast of the head was performed at [facility] 10-21-2023. 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 There was no tumor or aneurysm. Please contact me if you have questions. Respectfully, Nitish Asencio MD Sincerely, Your Primary Care Team [facility] [address] [address] [place] [address] [phone] [facility] [address] [place] [address] [place] [address] [phone] [facility] [address] [facility] [place] [address] [place] [address] [phone] NITISH ASENCIO [facility] Oct 26, 2023 04:09 PM NONVA CONSULT: LOCAL TITLE: MD/OUTSIDE CONSULT REPORT SUMMARY STANDARD TITLE: NONVA CONSULT DATE OF NOTE: OCT 26, 2023@16:09 ENTRY DATE: OCT 26, 2023@16:09:19 AUTHOR: NITISH ASENCIO EXP COSIGNER: URGENCY: STATUS: COMPLETED [facility] 10-21-2023 MRI brain without contrast Impression: 1. 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 Small region of patchy T2/FLAIR hyperintense signal in the right cerebellar and deep white matter is nonspecific but may reflect sequela of chronic microvascular ischemia. 2. Mild age-appropriate generalized cerebral volume loss. Full report sent to [facility]. // Nitish Asencio MD Staff Physician Signed: 10/26/2023 16:10 NITISH ASENCIO [facility]
--- OUTSIDE RECORDS SUMMARY | 2024-02-15 17:27 | XMS_ITS | Encounter Summary ---
Author Name [facility] [place] Address [address] [place] [address] Care Team Providers Care Glass Or Mirror Inspector Name Role Phone ROSELYN PEREZ Primary Care Provider ISABELA Ramirez Primary Care Provider Peyton e Insurance Providers: All historical and current Section [...] TRICA RE DODA WNR Oct 05, 2022 DODA [id number] NUHANOEMI ERT PATIENT MEDICARE (WNR) MEDICARE (M) PART A Feb 13, 2019 PART A [id number] NUHANOEMI ERT PATIENT MEDICARE (WNR) MEDICARE (M) PART B Feb 13, 2019 PART B [id number] [id number] NUHANOEMI ERT PATIENT MEDICARE (WNR) MEDICARE (M) PART A Feb 13, 2019 PART A [id number] NOEMI BREEN ERT PATIENT MEDICARE (WNR) MEDICARE (M) PART B Feb 13, 2019 PART B [id number] NOEMI BREEN ERT PATIENT MEDICARE (WNR) MEDICARE (M) PART A Feb 13, 2019 PART A [id number] [phone] NOEMI BREEN ERT PATIENT MEDICARE (WNR) MEDICARE (M) PART B Feb 13, 2019 PART B [id number] NOEMI BREEN ERT PATIENT FOR LIFE TFL* Feb 13, 2019 [id number] NUHANOEMI ERT PATIENT FOR LIFE SUPPLEMEN SHAI TFL Feb 13, 2019 FOR LIFE [id number] NUHANOEMI ERT PATIENT -FO R-LIFE DIREC T CARE Oct 05, 2022 FOR LIFE [id number] 90 NOEMI BREEN ERT PATIENT Selected Encounter This section includes the information on record at [place] for the Encounter. Date/Time Encounter Type Encounter Description Reason Pro vider Source IHE Encounter Template Text not used by CT
--- OUTSIDE RECORDS SUMMARY | 2024-02-15 17:27 | XMS_ITS | Encounter Summary ---
Author Name [facility] [place] [facility] [facility] [place] Address [address] [place] [address] Care Team Providers Care Silo Filler Name Role Phone ROSELYN PEREZ Primary Care [...] RE DODA WNR Oct 05, 20[id number] NUHANOEMI ERT PATIENT MEDICARE (WNR) MEDICARE (M) PART B Feb 13, 2019 PART B [id number] [phone] [id number] NUHANOEMI ERT PATIENT MEDICARE (WNR) MEDICARE (M) PART A Feb 13, 2019 PART A [id number] NUHANOEMI ERT PATIENT MEDICARE (WNR) MEDICARE (M) PART A Feb 13, 2019 PART A [id number] NOEMI BREEN ERT PATIENT MEDICARE (WNR) MEDICARE (M) PART B Feb 13, 2019 PART B [id number] [id number] NOEMI BREEN ERT PATIENT MEDICARE (WNR) MEDICARE (M) PART A Feb 13, 2019 PART A [id number] [phone] NOEMI BREEN ERT PATIENT MEDICARE (WNR) MEDICARE (M) PART B Feb 13, 2019 PART B [id number] NOEMI BREEN ERT PATIENT FOR LIFE TFL* Feb 13, 2019 [id number] NOEMI BREEN ERT PATIENT FOR LIFE SUPPLEMEN SHAI TFL Feb 13, 2019 FOR LIFE [id number] NOEMI BREEN ERT PATIENT -FO R-LIFE DIREC T CARE Oct 05, 2022 FOR LIFE [id number] 90 NOEMI BREEN ERT PATIENT Selected Encounter This section includes the information on record at [place] for the Encounter. Date/Time Encounter Type Encounter Description Reason Pro vider Source June 20, 2023 12:00 AM Outpatient Encounter EVENT (HISTORICAL) IHE Encounter Template Text not used by [place] Plan of Treatment: Future Appointments (+ 6 months) and Future Tests (+/- 45 days) The Plan of Treatment section includes future care activities for the patient from all [place] treatmentfacilities. This section includes future appointments and future orders which are active, pending or scheduled. Future Appointments This section includes appointments that were scheduled to occur 6 months from the date of the Encounter, up to a maximum of 20 appointments. The data comes from all [place] treatment facilities. Appointment Date/Time Appointment Type Appointme nt Facility Name Jul 26, 2023 10:30 AM AMBULATORY - NONE [facility] [place] [facility] Jul 26, 2023 11:00 AM AMBULATORY - PSYCHIATRY [facility] [place] [facility] Jul 26, 2023 11:30 AM AMBULATORY - NONE [facility] [place] [facility] Aug 08, 2023 08:30 AM AMBULATORY - PSYCHIATRY [facility] [place] [facility] Aug 22, 2023 11:30 AM AMBULATORY - PSYCHIATRY [facility] [place] [facility] Sep 26, 2023 09:00 AM AM[place]ULATORY [place]ICINE [place] [facility] [facility] Oct 21, 2023 09:00 AM AM[place]ULATORY [place]ICINE [place] [facility] [place] [facility] Oct 25, 2023 10:00 AM AMBULATORY - NONE [place] [facility] [facility] Nov 09, 2023 09:30 AM AMBULATORY - PSYCHIATRY [facility] [place] [facility] Nov 09, 2023 11:20 AM AMBULATORY - MEDICINE [place] [facility] [facility] Nov 23, 2023 03:30 PM AM[place]ULATORY - MEDICINE [place] [facility] [facility] Dec 20, 2023 02:30 PM [place] [place] [facility] [place] [facility] Active, Pending, and Scheduled Orders This section includes a listing of several types of active, pending, and scheduled orders, including clinic medications orders, diagnostic test orders, procedure orders and consult orders; where the start date of the order is 45 days before the date of the Encounter or 45 days after the date of theEncounter. The data comes from all [place] treatment facilities. Test Date/Time Test Type Test Details Facility Name June 20, 2023 12:00 AM Laboratory - Chemistry Order CBC AND DIFF (AUTO) BLOOD (LAV-BLOOD) [facility] [place] [facility] June 20, 2023 12:00 AM Laboratory - Chemistry Order BASIC METABOLIC PANEL (fasting) BLOOD (SST-SERUM) [facility] [place] [facility] June 20, 2023 12:00 AM Laboratory - Chemistry Order LIPID PANEL FASTING BLOOD (SST-SERUM) [facility] [place] [facility] June 20, 2023 12:00 AM Laboratory - Chemistry Order LIVER FUNCTION BLOOD (SST-SERUM) [facility] [place] [facility] June 20, 2023 12:00 AM Laboratory - Chemistry Order TSH BLOOD (SST-SERUM) [facility] [place] [facility] June 20, 2023 12:00 AM Laboratory - Chemistry Order PSA BLOOD (SST-SERUM) [facility] [place] [facility] June 20, 2023 12:00 AM Laboratory - Chemistry Order URINALYSIS CLEAN CATCH URINE [facility] [place] [facility] June 20, 2023 12:00 AM Laboratory - Chemistry Order CALCIUM BLOOD (SST-SERUM) [facility] [place] [facility] June 20, 2023 12:00 AM Laboratory - Chemistry Order VITAMIN B12 BLOOD (SST-SERUM) [facility] June 20, 2023 12:00 AM Laboratory - Chemistry Order FOLATE (WROX) BLOOD (SST-SERUM) [facility]
--- OUTSIDE RECORDS SUMMARY | 2024-02-15 17:27 | XMS_ITS | Encounter Summary ---
Author Name [facility] [place] [facility] [place] Organization [facility] [place] Address [address] [place] [id number] Care Team Providers Care Interior Surface Insulation Worker Name Role Phone ROSELYN PEREZ Primary [...] TRICA RE [facility] Oct 05[facility] [id number] NOEMI BREEN ERT PATIENT MEDICARE (WNR) MEDICARE (M) PART A Feb 13, 2019 PART A [id number] HUNTERNOEMI SMALLWOOD ERT PATIENT MEDICARE (WNR) MEDICARE (M) PART B Feb 13, 2019 PART B [id number] [phone] [id number] HUNTERNOEMI SMALLWOOD ERT PATIENT MEDICARE (WNR) MEDICARE (M) PART A Feb 13, 2019 PART A [id number] [phone] HUNTERSELINNOEMI ERT PATIENT MEDICARE (WNR) MEDICARE (M) PART B Feb 13, 2019 PART B [id number] HUNTERSELINNOEMI ERT PATIENT MEDICARE (WNR) MEDICARE (M) PART A Feb 13, 2019 PART A [id number] NOEMI BREEN ERT PATIENT MEDICARE (WNR) MEDICARE (M) PART B Feb 13, 2019 PART B [id number] NOEMI BREEN ERT PATIENT FOR LIFE TFL* Feb 13, 2019 [id number] NOEMI BREEN ERT PATIENT FOR LIFE SUPPLEMEN SHAI TFL Feb 13, 2019 [facility] [id number] NOEMI BREEN ERT PATIENT -FO R-LIFE DIREC T CARE Oct 05, 2022 [facility] [id number] NOEMI BREEN ERT PATIENT Selected Encounter This section includes the information on record at [place] for the Encounter. Date/Time Encounter Type Encounter Description Reason Provider Source June 20, 2023 01:00 AM Outpatient Encounter CLINICAL PHARMACY SAE IRVIN Encounter Template Text not used by [place] [...] AMBULATORY - NONE [facility] [place] [facility] Jul 26, 2023 11:00 AM AMBULATORY - PSYCHIATRY [facility] [place] [facility] Jul 26, 2023 11:30 AM AMBULATORY - NONE [facility] [place] [facility] Aug 08, 2023 08:30 AM AMBULATORY - PS[facility]CHIATRY [facility] [place] [facility] Aug 22, 2023 11:30 AM AMBULATORY - PS[facility]CHIATRY [facility] [place] [facility] Sep 26, 2023 09:00 AM AMBULATORY - MEDICINE [place] [facility] [place] [facility] Oct 21, 2023 09:00 AM AMBULATORY - MEDICINE [place] [facility] [place] [facility] Oct 25, 2023 10:00 AM AMBULATORY - NONE [facility] [place] [facility] Nov 09, 2023 09:30 AM AMBULATORY - PS[facility]CHIATRY [facility] [place] [facility] Nov 09, 2023 11:20 AM AMBULATORY - MEDICINE [place] [facility] [place] [facility] Nov 23, 2023 03:30 PM AMBULATORY - MEDICINE [place] [facility] [place] [facility] Dec 20, 2023 02:30 PM [facility]UL[facility] Active, Pending, and Scheduled Orders This [...] (fasting) BLOOD (SST-SERUM) [facility] [place] [facility] June 20, 2023 12:00 AM Laboratory - Chemistry Order CBC AND DIFF (AUTO) BLOOD (LAV-BLOOD) [facility] [place] [facility] June 20, 2023 12:00 AM Laboratory - Chemistry Order LIVER FUNCTION BLOOD (SST-SERUM) [facility] [place] [facility] June 20, 2023 12:00 AM Laboratory - Chemistry Order LIPID PANEL FASTING BLOOD (SST-SERUM) [facility] [place] [facility] June 20, 2023 12:00 AM Laboratory - Chemistry Order TSH BLOOD (SST-SERUM) [facility] [place] [facility] June 20, 2023 12:00 AM Laboratory - Chemistry Order PSA BLOOD (SST-SERUM) [facility] [place] [facility] June 20, 2023 12:00 AM Laboratory - Chemistry Order URINALYSIS CLEAN CATCH URINE [facility] [place] [facility] June 20, 2023 12:00 AM Laboratory - Chemistry Order CALCIUM BLOOD (SST-SERUM) [facility] [place] [facility] June 20, 2023 12:00 AM Laboratory - Chemistry Order VITAMIN B12 BLOOD (SST-SERUM) SP [facility] [place] [facility] June 20, 2023 12:00 AM Laboratory - Chemistry Order FOLATE (WROX) BLOOD (SST-SERUM) [facility] Encounter Notes: All associated encounter notes This section contains the clinical notes associated to the Encounter. Date/Time Encounter Note(s) Provider Source July 06, 2023 09:20 AM IMMUNIZATION NOTE: LOCAL TITLE: IMMUNIZATION NOTE STANDARD TITLE: IMMUNIZATION NOTE DATE OF NOTE: JULY 06, 2023@09:20:53 ENTRY DATE: JULY 06, 2023@09:20:53 AUTHOR: SAE IRVIN EXP COSIGNER: URGENCY: STATUS: COMPLETED Per review of records, patient received a prior dose of COVID-19 (MODERNA), MRNA, LNP-S, PF, 50 MCG/0.5 ML (AGES 12+ YEARS) Date: 06/20/2023 Location: ([address]) [place], [place] Lot#: /es/ SAE IRVIN PHARMACIST Signed: 07/06/2023 09:20 SAE IRVIN [facility]
--- OUTSIDE RECORDS SUMMARY | 2024-02-15 17:27 | XMS_ITS | Encounter Summary ---
Author Name [facility] [place] [place] [facility] Address [address] [place] [address] Care Team Providers Care Drug And Alcohol Treatment Specialist Name Role Phone ROSELYN PEREZ Primary Care [...] TRICA [facility] [id number] NOEMI BREEN ERT PATIENT MEDICARE (WNR) MEDICARE (M) PART A Feb 13, 2019 PART A [id number] [phone] NOEMI BREEN ERT PATIENT MEDICARE (WNR) MEDICARE (M) PART B Feb 13, 2019 PART B [id number] NOEMI BREEN ERT PATIENT MEDICARE (WNR) MEDICARE (M) PART A Feb 13, 2019 PART A [id number] NOEMI BREEN ERT PATIENT MEDICARE (WNR) MEDICARE (M) PART B Feb 13, 2019 PART B [id number] [phone] NOEMI BREEN ERT PATIENT MEDICARE (WNR) MEDICARE (M) PART A Feb 13, 2019 PART A [id number] NOEMI BREEN ERT PATIENT MEDICARE (WNR) MEDICARE (M) PART B Feb 13, 2019 PART B [id number] [phone] NOEMI BREEN ERT PATIENT FOR LIFE TFL* Feb 13, 2019 [id number] NOEMI BREEN ERT PATIENT FOR LIFE SUPPLEMEN SHAI TFL Feb 13, 2019 [facility] [id number] 90 NOEMI BREEN ERT PATIENT -FO R-LIFE DIREC T CARE Oct 05, 2022 [facility] [id number] 90 NOEMI BREEN ERT PATIENT Selected Encounter This section includes the information on record at CT for the Encounter. Date/Time Encounter Type Encounter Description Reason Pro vider Source Oct 21, 2023 12:00 AM Outpatient Encounter COMMUNITY CARE CONSULT IHE Encounter Template Text not used by CT Plan of Treatment: Future Appointments (+ 6 months) and Future Tests (+/- 45 days) The Plan of Treatment section includes future care activities for the patient from all [facility]. This section includes future appointments and future orders which are active, pending or scheduled. Future Appointments This section includes appointments that were scheduled to occur 6 months from the date of the Encounter, up to a maximum of 20 appointments. The data comes from all CT treatment facilities. Appointment Date/Time Appointment Type Appointme nt Facility Name Oct 25, 2023 10:00 AM AMBULATORY - NONE [facility] [place] [facility] Nov 09, 2023 09:30 AM AMBULATORY - PSYCHIATRY [facility] [place] [facility] Nov 09, 2023 11:20 AM AMBULATORY - MEDICINE [facility] [place] [facility] Nov 23, 2023 03:30 PM AMBULATORY - MEDICINE [facility] [place] [facility] Dec 20, 2023 02:30 PM AMBULATORY - MEDICINE [facility] [place] [facility] Jan 01, 2024 02:00 PM AMBULATORY - MEDICINE [facility] [place] [facility] Mar 19, 2024 01:00 PM AMBULATORY - PSYCHIATRY [facility] Lab Results: +/- 30 days of the encounter This section includes the Chemistry and Hematology Lab Results on record with CT for the patient. Radiology Reports and Pathology Reports are provided separately, in subsequent sections. Lab Results This section contains the Chemistry/Hematology Results that were resulted 30 days before or 30 daysafter the date of the Encounter. Date/Time Source Result Type Result - Unit Interpretation Reference Range Comment Oct 02, 2023 08:57 AM [facility] VITAMIN B-1 (THIAMINE)-(QU) Specimen Type: PLASMA Comment: Vitamin supplementation within 24 hours prior to blood draw may affect the accuracy of the results. This test was developed and its analytical performance characteristics have been determined by [employer] [place], [place]. It has not been cleared or approved by the U.S. Food and Drug Administration. This assay has been validated pursuant to the CLIA regulations and is used for clinical purposes. Test Performed by [facility], [employer] [facility], [address] [place] [address] Angus Mendez M.D., Ph.D., Director of Laboratories , CLIA [id number] TEST PERFORMED AT: , Ordering Provider: ISABELA ASENCIO Report Released Date/Time: Sep 16, 2023 06:52 PM Reporting Lab: [address] [address] Performing Lab: [facility] [address] [address] VITAMIN B-1 (THIAMINE)-(Q U) 22 nmol/L 8-Oct 02, 2023 08:57 AM [facility] FOLATE (WROX) Specimen Type: SERUM No comment entered. Ordering Provider: ISABELA ASENCIO Report Released Date/Time: Sep 16, 2023 06:52 PM Reporting Lab: [facility] [address] [facility] [address] Performing Lab: [facility] [address] [facility] [address] FOLATE (WROX) 9.92 ng/mL >5.2 Oct 02, 2023 08:57 AM [facility] TSH Specimen Type: SERUM No comment entered. Ordering Provider: ISABELA ASENCIO Report Released Date/Time: Sep 16, 2023 06:52 PM Reporting Lab: [facility] [address] [facility] [address] Performing Lab: [facility] [address] [facility] [address] TSH 0.78 u[IU]/mL 0.35-5.00 Oct 02, 2023 08:57 AM [facility] LIPID PANEL FASTING Specimen Type: SERUM No comment entered. Ordering Provider: ISABELA ASENCIO Report Released Date/Time: Sep 16, 2023 06:52 PM Reporting Lab: [facility] [address] Performing Lab: [facility] [address] [address] CHOLESTEROL 185 mg/dL TRIGLYCERIDE 272 mg/dL H 0-150 LDL calculated 96 mg/dL 0-129 CHOL/HDL 5.3 HDL CHOLESTEROL 35 mg/dL L 40-60 Oct 02, 2023 08:57 AM [facility] PSA Specimen Type: SERUM No comment entered. Ordering Provider: ISABELA ASENCIO Report Released Date/Time: Sep 16, 2023 06:52 PM Reporting Lab: [facility] [address] [address] Performing Lab: [facility] [address] [address] PSA 0.53 ng/mL 0.00-4.00 Oct 02, 2023 08:57 AM [facility] LIVER FUNCTION Specimen Type: SERUM No comment entered. Ordering Provider: ISABELA ASENCIO Report Released Date/Time: Sep 16, 2023 06:52 PM Reporting Lab: [facility] [address] [address] Performing Lab: [facility] [address] PROTEIN,TOTAL 6.9 g/dL 6.0-8.3 ALBUMIN 4.0 g/dL 3.5-5.0 ALKALINE PHOSPHATASE 86 U/L 40-150 AST 13 U/L 5-34 ALT 21 U/L BILIRUBIN, TOTAL 0.8 mg/dL 0.2-1.2 Oct 02, 2023 08:57 AM [facility] BASIC METABOLIC PANEL (fasting) Specimen Type: SERUM No comment entered. Ordering Provider: ISABELA ASENCIO Report Released Date/Time: Sep 16, 2023 06:52 PM Reporting Lab: [facility] [address] Performing Lab: [facility] [address] UREA NITROGEN 24 mg/dL 7-25 GLUCOSE 99 mg/dL 65-100 SODIUM 137 mmol/L 135-145 POTASSIUM 4.4 mmol/L 3.5-5.0 CHLORIDE 104 mmol/L 100-110 CO2 22 meq/L 20-30 CREATININE, Serum 1.99 mg/dL H 0.50-1.40 eGFR(CKD-EPI 2020) 36 mL/min L >60 Oct 02, 2023 08:57 AM [facility] CALCIUM Specimen Type: SERUM No comment entered. Ordering Provider: ISABELA ASENCIO Report Released Date/Time: Sep 16, 2023 06:52 PM Reporting Lab: [facility] [address] Performing Lab: [facility] [address] [address] CALCIUM 9.1 mg/dL 8.5-10.2 Oct 02, 2023 08:57 AM [facility] VITAMIN B12 Specimen Type: SERUM No comment entered. Ordering Provider: ISABELA ASENCIO Report Released Date/Time: Sep 16, 2023 06:52 PM Reporting Lab: [facility] [address] Performing Lab: [facility] [address] VITAMIN B12 1105 pg/mL H 200-900 Oct 02, 2023 08:57 AM [facility] MICROSCOPIC AUTOMATED, URINE Specimen Type: URINE Comment: If Glucose = >500 and Ketones are positive, please alert the Physician. Ordering Provider: ISABELA ASENCIO Report Released Date/Time: Sep 16, 2023 06:52 PM Reporting Lab: [address] [address] Performing Lab: [facility] [address] [facility] [address] UA WBC 0-5 /[HPF] 0-5 UA MUCUS FEW /[LPF] Trace UA RBC 0-2 /[HPF] 0-3 Oct 02, 2023 08:57 AM [facility] CBC AND DIFF (AUTO) Specimen Type: BLOOD No comment entered. Ordering Provider: ISABELA ASENCIO Report Released Date/Time: Sep 16, 2023 06:52 PM Reporting Lab: [facility] [address] [facility] [address] Performing Lab: [address] [address] WBC 6.61 10*3/uL 4.50-11.00 RBC 4.42 10*6/uL [...] 10*3/uL 0.00-0.00 Oct 02, 2023 08:57 AM [facility] URINALYSIS CLEAN CATCH Specimen Type: URINE Comment: If Glucose = >500 and Ketones are positive, please alert the Physician. Ordering Provider: ISABELA ASENCIO Report Released Date/Time: Sep 16, 2023 06:52 PM Reporting Lab: [address] [address] Performing Lab: [address] [address] UA COLOR Light-Yellow Yellow UA APPEARANCE Clear [...] Date/Time Current Smoking Status Comment Randal ity Sep 26, 2023 09:00 AM VA-TOBACCO FORMER USER [facility] Tobacco Use History This section includes a history of the smoking, or tobacco-related health factors, that were collected on or before the date of the Encounter. The data comes from the CT facility where the Encounter took place. Date/Time Smoking Status/Tobacco Use Comment F acility Sep 26, 2023 09:00 AM VA-TOBACCO QUIT 15 YRS OR MORE [facility] [place] [facility] Oct 18, 2022 03:16 PM VA-TOBACCO FORMER USER [facility] [place] [facility] Oct 18, 2022 03:16 PM VA-TOBACCO QUIT 15 YRS OR MORE [facility] [place] [facility] Nov 12, 2021 10:30 AM VA-TOBACCO FORMER USER [facility] [place] [facility] Nov 12, 2021 10:30 AM VA-TOBACCO QUIT 5 TO < 15 YRS [facility] [place] [facility] Oct 01, 2020 11:02 AM VA-TOBACCO FORMER USER [facility] [place] [facility] Oct 01, 2020 11:02 AM VA-TOBACCO QUIT 15 YRS OR MORE [facility] [place] [facility] Oct 25, 2019 11:30 AM VA-TOBACCO FORMER USER [facility] [place] [facility] Oct 25, 2019 11:30 AM VA-TOBACCO QUIT 5 TO < 15 YRS [facility] [place] [facility] Sep 07, 2018 09:43 AM VA-TOBACCO FORMER USER [facility] [place] [facility] Sep 07, 2018 09:43 AM VA-TOBACCO QUIT 5 TO < 15 YRS [facility] [place] [facility] Apr 25, 2018 02:08 PM VA-TOBACCO USE DEC LINED TO ANSWER [facility] [place] [facility] Radiology Reports: +/- 30 days of [...] the Encounter. The data comes from all CT treatment facilities. Date/Time Radiology Report Provider Source Oct 25, 2023 09:[address] PULMONARY NODULES W/O CONTRAST: NAINA BREEN [id number] -[id number] M Exm Date: OCT 25, 2023@09:53 Req Phys: ISABELA ASENCIO Pat Loc: CWM/NO/PACT 2 (Req'g Loc) Img Loc: NHM/CT Service: Unknown [facility] [place] [facility] [place] [address] (Case 133 COMPLETE) CT THORAX W/O CONT (CT Detailed) CPT:27158 Reason for Study: look for cancer Clinical History: Report Status: Verified Date Reported: OCT 25, 2023 Date Verified: OCT 25, 2023 [employer] E-Sig:/ES/RONNIE COLMENARES JR Report: Study: Noncontrast CT [...] Diagnostic Codes: POSSIBLE MALIGNANCY Primary Interpreting Staff: RNONIE COLMENARES JR, Radiologist ([employer]) /RONNIE WOLFE JR [facility] Encounter Notes: All associated encounter notes This section contains the clinical notes associated to the Encounter. Date/Time Encounter Note(s) Provider Source Oct 21, 2023 12:00 AM NONVA CONSULT: LOCAL TITLE: COMMUNITY CARE-CONSULT RESULT NOTE STANDARD TITLE: NONVA CONSULT DATE OF NOTE: OCT 21, 2023 ENTRY DATE: NOV 10, 2023@14:25:15 AUTHOR: SAMIR FREED EXP COSIGNER: URGENCY: STATUS: COMPLETED VistA Imaging - Scanned Document SCANNED DOCUMENT SIGNATURE NOT REQUIRED Electronically Filed: 11/10/2023 by: SAMIR FREED TREE DEADENER SAMIR FREED [facility]
--- OUTSIDE RECORDS SUMMARY | 2024-02-15 17:27 | XMS_ITS | Encounter Summary ---
Author Name Department of [facility] Affairs ([place]) Organization [facility] of [facility] ([place]) Address [address] [place] [address] Care Team Providers Care Portrait Photographer Name Role Phone ROSELYN PEREZ Primary Care [...] [id number] NOEMI BREEN ERT PATIENT MEDICARE (WNR) MEDICARE (M) PART A Feb 13, 2019 PART A [id number] [phone] [id number] NOEMI BREEN ERT PATIENT MEDICARE (WNR) MEDICARE (M) PART B Feb 13, 2019 PART B [id number] NOEMI BREEN ERT PATIENT MEDICARE (WNR) MEDICARE (M) PART A Feb 13, 2019 PART A [id number] NOEMI BREEN ERT PATIENT MEDICARE (WNR) MEDICARE (M) PART B Feb 13, 2019 PART B [id number] NOEMI BREEN ERT PATIENT MEDICARE (WNR) MEDICARE (M) PART A Feb 13, 2019 PART A [id number] [phone] NOEMI BREEN ERT PATIENT MEDICARE (WNR) MEDICARE (M) PART B Feb 13, 2019 PART B [id number] NOEMI BREEN ERT PATIENT FOR LIFE TFL* Feb 13, 2019 [id number] NOEMI BREEN ERT PATIENT FOR LIFE SUPPLEMEN SHAI TFL Feb 13, 2019 [facility] [id number] NOEMI BREEN ERT PATIENT -FO R-LIFE DIREC T CARE Oct 05, 2022 [facility] [id number] 90 NOEMI BREEN ERT PATIENT Selected Encounter This section includes the information on record at [place] for the Encounter. Date/Time Encounter Type Encounter Description Reason Pro vider Source Nov 12, 2023 10:02 PM Outpatient Encounter PRIMARY CARE/MEDICINE IHE Encounter Template Text not used by [place] Plan of Treatment: Future Appointments (+ 6 months) and Future Tests (+/- 45 days) The Plan of Treatment section includes future care activities for the patient from all [place] [facility]. This section includes future appointments and future orders which are active, pending or scheduled. Future Appointments This section includes appointments that were scheduled to occur 6 months from the date of the Encounter, up to a maximum of 20 appointments. The data comes from all [place] treatment facilities. Appointment Date/Time Appointment Type Appointme nt Facility Name Nov 23, 2023 03:30 PM AMBULATORY - MEDICINE [place] [facility] [place] [facility] Dec 20, 2023 02:30 PM AMBULATORY - MEDICINE [place] [facility] [facility] Jan 01, 2024 02:00 PM AMBULATORY - MEDICINE [place] [facility] [place] [facility] Mar 19, 2024 01:00 PM AMBULATORY - PSYCHIATRY [place] [facility] [place] [facility] Apr 24, 2024 01:30 PM AMBULATORY - NONE [place] [facility] [place] [facility] Apr 30, 2024 03:00 PM AMBULATORY - MEDICINE [place] [facility] [place] [facility] Social History: Smoking Status (Most current) and Tobacco Use (All prior to encounter date) This section includes the most current, and the historical, smoking and tobacco- related health factors from the [place] facility where the Encounter took place. Current Smoking Status This section includes the most current smoking, or tobacco-related health factor, from the [place] facility where the Encounter took place. Date/Time Current Smoking Status Comment Facil ity Sep 26, 2023 09:00 AM VA-TOBACCO FORMER USER [facility] [place] [facility] Tobacco Use History This section includes a history of the smoking, or tobacco-related health factors, that were collected on or before the date of the Encounter. The data comes from the [place] facility where the Encounter took place. Date/Time Smoking Status/Tobacco Use Comment F acility Sep 26, 2023 09:00 AM VA-TOBACCO QUIT 15 YRS OR MORE [facility] [place] [facility] Oct 18, 2022 03:16 PM VA-TOBACCO FORMER USER [facility] [place] [facility] Oct 18, 2022 03:16 PM VA-TOBACCO QUIT 15 YRS OR MORE [facility] [place] [facility] Nov 12, 2021 10:30 AM VA-TOBACCO FORMER USER [facility] [place] [facility] Nov 12, 2021 10:30 AM VA-TOBACCO QUIT 5 TO < 15 YRS [facility] [place] [facility] Oct 01, 2020 11:02 AM VA-TOBACCO FORMER USER [facility] [place] [facility] Oct 01, 2020 11:02 AM VA-TOBACCO QUIT 15 YRS OR MORE [facility] [place] [facility] Oct 25, 2019 11:30 AM VA-TOBACCO FORMER USER [facility] [place] [facility] Oct 25, 2019 11:30 AM VA-TOBACCO QUIT 5 TO < 15 YRS [facility] [place] [facility] Sep 07, 2018 09:43 AM VA-TOBACCO FORMER USER [facility] [place] [facility] Sep 07, 2018 09:43 AM VA-TOBACCO QUIT 5 TO < 15 YRS [facility] [place] [facility] Apr 25, 2018 02:08 PM VA-TOBACCO USE DEC LINED TO ANSWER [facility] [place] [facility] Radiology Reports: +/- 30 days [...] the Encounter. The data comes from all [place] treatment facilities. Date/Time Radiology Report Provider Source Oct 25, 2023 09:[address] PULMONARY NODULES W/O CONTRAST: NAINA BREEN [id number] -1955 M Exm Date: OCT 25, 2023@09:53 Req Phys: NITISH ASENCIO Loc: CWM/NO/PACT 2 (Req'g Loc) Img Loc: NHM/CT Service: Unknown [place] [address] (Case [id number] COMPLETE) CT THORAX W/O CONT (CT Detailed) CPT:18804 Reason for Study: look for cancer Clinical History: Report Status: Verified Date Reported: OCT 25, 2023 Date Verified: OCT 25, 2023 Top Lift Trimmer E-Sig:/ES/RONNIE COLMENARES JR Report: Study: Noncontrast CT [...] Primary Interpreting Staff: RONNIE COLMENARES JR, Radiologist (Top Lift Trimmer) /RONNIE WOLFE JR [place] [facility] Encounter Notes: All associated encounter notes This section contains the clinical notes associated to the Encounter. Date/Time Encounter Note(s) Provider Source Nov 12, 2023 10:02 PM NONVA CONSULT: LOCAL TITLE: MD/OUTSIDE CONSULT REPORT SUMMARY STANDARD TITLE: NONVA CONSULT DATE OF NOTE: NOV 12, 2023@22:02 ENTRY DATE: NOV 12, 2023@22:02:48 AUTHOR: NITISH ASENCIO EXP COSIGNER: URGENCY: STATUS: COMPLETED 09-01-2023 MRI abdomen with and without contrast [facility] Ordered by LEONARDO Bird urology 1. Status post right-sided total nephrectomy. There is a 1.2 cm peripherally enhancing nodule in the postoperative bed immediately abutting the posterior wall of the descending duodenum which could represent postoperative fibrosis/collection or small recurrent tumor. This is the first baseline postoperative MRI available. Recommend short-term follow-up in 3 to 6 months. 2. Enhancing 2.5 cm mass in the lower pole of the left kidney consistent with a solid renal neoplasm such as renal cell carcinoma. 3. 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 Further characterization with CT abdomen with IV contrast might be helpful. 4. Hepatic steatosis. 5. Incidentally noted pancreatic devisum anatomy. Full report sent to scanning. /ta/ Nitish Asencio MD Staff Physician Signed: 11/12/2023 22:05 NITISH ASENCIO [place] [facility] [place] [facility]
--- OUTSIDE RECORDS SUMMARY | 2024-02-15 17:27 | XMS_ITS | Encounter Summary ---
Author Name [facility] [place]) Organization [facility] of [facility] Affairs ([place]) Address [address] [place] [address] Care Team Providers Care Automobile Assembler Name Role Phone ROSELYN PEREZ Primary [...] TRICA [id number] NOEMI BREEN ERT PATIENT MEDICARE (WNR) MEDICARE (M) PART B Feb 13, 2019 PART B [id number] NOEMI BREEN ERT PATIENT MEDICARE (WNR) MEDICARE (M) PART A Feb 13, 2019 PART A [id number] NOEMI BREEN ERT PATIENT MEDICARE (WNR) MEDICARE (M) PART A Feb 13, 2019 PART A [id number] NOEMI BREEN ERT PATIENT MEDICARE (WNR) MEDICARE (M) PART B Feb 13, 2019 PART B [id number] [phone] NOEMI BREEN ERT PATIENT MEDICARE (WNR) MEDICARE (M) PART A Feb 13, 2019 PART A [id number] NOEMI BREEN ERT PATIENT MEDICARE (WNR) MEDICARE (M) PART B Feb 13, 2019 PART B [id number] NOEMI BREEN ERT PATIENT FOR LIFE TFL* Feb 13, 2019 [id number] [phone] NOEMI BREEN ERT PATIENT FOR LIFE SUPPLEMEN SHAI TFL Feb 13, 2019 [facility] [id number] 90 NOEMI BREEN ERT PATIENT -FO R-LIFE DIREC T CARE Oct 05, 2022 [facility] [id number] 90 NOEMI BREEN ERT PATIENT Selected Encounter This section includes the information on record at [place] for the Encounter. Date/Time Encounter Type Encounter Description Reason Pro vider Source Sep 01, 2023 12:00 AM Outpatient Encounter COMMUNITY CARE CONSULT IHE Encounter Template Text not used by [place] Plan of Treatment: Future Appointments (+ 6 months) and Future Tests (+/- 45 days) The Plan of Treatment section includes future care activities for the patient from all [place] treatment[facility] hospital[facility]. This section includes future appointments and future [...] - MEDICINE [place] [facility] Oct 21, 2023 09:00 AM AMBULATORY - MEDICINE [place] [facility] Oct 25, 2023 10:00 AM AMBULATORY - NONE [place] [facility] [place] [facility] Nov 09, 2023 09:30 AM AMBULATORY - PSYCHIATRY [place] [facility] [place] [facility] Nov 09, 2023 11:20 AM AMBULATORY - MEDICINE [place] [facility] Nov 23, 2023 03:30 PM AMBULATORY - MEDICINE [place] [facility] [place] [facility] Dec 20, 2023 02:30 PM AMBULATORY - MEDICINE [place] [facility] Jan 01, 2024 02:00 PM AMBULATORY - MEDICINE [place] [facility] [place] [place] [facility] Active, Pending, and Scheduled Orders This [...] 11:53 AM Consult Order COMMUNITY CARE-NEUROLOGY Cons Face [employer] [place] [facility] [facility] Social History: Smoking Status (Most current) [...] PM VA-TOBACCO FORMER USER [place] [facility] Tobacco Use History This section includes a history of the smoking, or tobacco-related health factors, that were collected on or before the date of the Encounter. The data comes from the [place] facility where the Encounter took place. Date/Time Smoking Status/Tobacco Use Comment F acility Oct 18, 2022 03:16 PM VA-TOBACCO QUIT 15 YRS OR MORE [facility] [place] [facility] Nov 12, 2021 10:30 AM VA-TOBACCO FORMER USER [facility] [place] [facility] Nov 12, 2021 10:30 AM VA-TOBACCO QUIT 5 TO < 15 YRS [place] [facility] [place] [facility] Oct 01, 2020 11:02 AM VA-TOBACCO FORMER USER [facility] [place] [facility] Oct 01, 2020 11:02 AM VA-TOBACCO QUIT 15 YRS OR MORE [facility] [place] [facility] Oct 25, 2019 11:30 AM VA-TOBACCO FORMER USER [facility] [place] [facility] Oct 25, 2019 11:30 AM VA-TOBACCO QUIT 5 TO < 15 [facility] Sep 07, 2018 09:43 AM [facility]CO [facility] Sep 07, 2018 09:43 AM VA-TOBACCO QUIT 5 TO < 15 [facility] Apr 25, 2018 02:08 PM VA-TOBACCO USE DEC LINED TO ANSWER [facility] Encounter Notes: All associated encounter notes This section contains the clinical notes associated to the Encounter. Date/Time Encounter Note(s) Provider Source Sep 01, 2023 12:00 AM NONVA CONSULT: LOCAL TITLE: COMMUNITY CARE-CONSULT RESULT NOTE STANDARD TITLE: NONVA CONSULT DATE OF NOTE: SEP 01, 2023 ENTRY DATE: OCT 31, 2023@06:50:19 AUTHOR: FAY MADISON EXP COSIGNER: URGENCY: STATUS: COMPLETED VistA Imaging - Scanned Document SCANNED DOCUMENT SIGNATURE NOT REQUIRED Electronically Filed: 10/31/2023 by: FAY FUENTES [facility]
--- OUTSIDE RECORDS SUMMARY | 2024-02-15 17:27 | XMS_ITS | Encounter Summary ---
Author Name [facility] ([place]) Address [address] [place] [address] Care Team Providers Care Bookseamer Blindstitch Name Role Phone ROSELYN PEREZ Primary Care [...] TRICA RE [facility] [id number] NOEMI BREEN ERT PATIENT MEDICARE (WNR) MEDICARE (M) PART B Feb 13, 2019 PART B [id number] NOEMI BREEN ERT PATIENT MEDICARE (WNR) MEDICARE (M) PART A Feb 13, 2019 PART A [id number] NOEMI BREEN ERT PATIENT MEDICARE (WNR) MEDICARE (M) PART A Feb 13, 2019 PART A [id number] NOEMI BREEN ERT PATIENT MEDICARE (WNR) MEDICARE (M) PART B Feb 13, 2019 PART B [id number] NOEMI BREEN ERT PATIENT MEDICARE (WNR) MEDICARE (M) PART A Feb 13, 2019 PART A [id number] NOEMI BREEN ERT PATIENT MEDICARE (WNR) MEDICARE (M) PART B Feb 13, 2019 PART B [id number] NOEMI BREEN ERT PATIENT FOR LIFE TFL* Feb 13, 2019 [id number] [phone] NOEMI BREEN ERT PATIENT FOR LIFE SUPPLEMEN SHAI TFL Feb 13, 2019 [facility] [id number] NOEMI BREEN ERT PATIENT -FO R-LIFE DIREC T CARE Oct 05, 2022 [facility] [id number] [phone] NOEMI BREEN ERT PATIENT Selected Encounter [...] AMBULATORY - PSYCHIATRY [place] [facility] [place] [facility] Nov 09, 2023 11:20 AM AMBULATORY - MEDICINE [place] [place] [facility] Nov 23, 2023 03:30 PM AMBULATORY - MEDICINE [place] [facility] [place] [facility] Dec 20, 2023 02:30 PM AMBULATORY - MEDICINE [place] [facility] [place] [facility] Jan 01, 2024 02:00 PM AMBULATORY - MEDICINE [place] [facility] [place] [facility] Mar 19, 2024 01:00 PM AMBULATORY - PSYCHIATRY [place] [facility] [place] [facility] Apr 24, 2024 01:30 PM AMBULATORY - NONE [facility] Lab Results: +/- 30 days [...] Comment Oct 02, 2023 08:57 AM [facility] VITAMIN B-1 (THIAMINE)-(QU) Specimen Type: PLASMA Comment: Vitamin supplementation within 24 hours prior to blood draw may affect the accuracy of the results. This test was developed and its analytical performance characteristics have been determined by [employer] [place], [place]. It has not been cleared or approved by the U.S. Food and Drug Administration. This assay has been validated pursuant to the CLIA regulations and is used for clinical purposes. Test Performed by [facility], [employer] [facility], [address] [place] [address] Angus Mendez M.D., Ph.D., Director of Laboratories , CLIA [id number] TEST PERFORMED AT: , Ordering Provider: NITISH ASENCIO Report Released Date/Time: Sep 16, 2023 06:52 PM Reporting Lab: [address] [address] Performing Lab: [facility] [address] [address] VITAMIN B-1 (THIAMINE)-(Q U) 22 nmol/L 8-Oct 02, 2023 08:57 AM [facility] FOLATE (WROX) Specimen Type: SERUM No comment entered. Ordering Provider: NITISH ASENCIO Report Released Date/Time: Sep 16, 2023 06:52 PM Reporting Lab: [facility] [address] [facility] [address] Performing Lab: [facility] [address] [facility] [address] FOLATE (WROX) 9.92 ng/mL >5.2 Oct 02, 2023 08:57 AM [facility] TSH Specimen Type: SERUM No comment entered. Ordering Provider: NITISH ASENCIO Report Released Date/Time: Sep 16, 2023 06:52 PM Reporting Lab: [facility] [address] [facility] [address] Performing Lab: [facility] [address] [facility] [address] TSH 0.78 u[IU]/mL 0.35-5.00 Oct 02, 2023 08:57 AM [facility] LIPID PANEL FASTING Specimen Type: SERUM No comment entered. Ordering Provider: NITISH ASENCIO Report Released Date/Time: Sep 16, 2023 06:52 PM Reporting Lab: [facility] [address] Performing Lab: [facility] [address] [address] CHOLESTEROL 185 mg/dL TRIGLYCERIDE 272 mg/dL H 0-150 LDL calculated 96 mg/dL 0-129 CHOL/HDL 5.3 HDL CHOLESTEROL 35 mg/dL L 40-60 Oct 02, 2023 08:57 AM [facility] PSA Specimen Type: SERUM No comment entered. Ordering Provider: NITISH ASENCIO Report Released Date/Time: Sep 16, 2023 06:52 PM Reporting Lab: [facility] [address] [address] Performing Lab: [facility] [address] [address] PSA 0.53 ng/mL 0.00-4.00 Oct 02, 2023 08:57 AM [facility] LIVER FUNCTION Specimen Type: SERUM No comment entered. Ordering Provider: NITISH ASENCIO Report Released Date/Time: Sep 16, 2023 06:52 PM Reporting Lab: [facility] [address] [address] Performing Lab: [facility] [place] [address] PROTEIN,TOTAL 6.9 g/dL 6.0-8.3 ALBUMIN 4.0 g/dL 3.5-5.0 ALKALINE PHOSPHATASE 86 U/L 40-150 AST 13 U/L 5-34 ALT 21 U/L BILIRUBIN, TOTAL 0.8 mg/dL 0.2-1.2 Oct 02, 2023 08:57 AM [facility] BASIC METABOLIC PANEL (fasting) Specimen Type: SERUM No comment entered. Ordering Provider: NITISH ASENCIO Report Released Date/Time: Sep 16, 2023 06:52 PM Reporting Lab: [address] [address] Performing Lab: [address] [address] UREA NITROGEN 24 mg/dL 7-25 GLUCOSE 99 mg/dL 65-100 SODIUM 137 mmol/L 135-145 POTASSIUM 4.4 mmol/L 3.5-5.0 CHLORIDE 104 mmol/L 100-110 CO2 22 meq/L 20-30 CREATININE, Serum 1.99 mg/dL H 0.50-1.40 eGFR(CKD-EPI 2020) 36 mL/min L >60 Oct 02, 2023 08:57 AM [facility] CALCIUM Specimen Type: SERUM No comment entered. Ordering Provider: NITISH ASENCIO Report Released Date/Time: Sep 16, 2023 06:52 PM Reporting Lab: [facility] [address] Performing Lab: [facility] [address] CALCIUM 9.1 mg/dL 8.5-10.2 Oct 02, 2023 08:57 AM [facility] VITAMIN B12 Specimen Type: SERUM No comment entered. Ordering Provider: NITISH ASECNIO Report Released Date/Time: Sep 16, 2023 06:52 PM Reporting Lab: [address] [address] Performing Lab: [facility] [address] VITAMIN B12 1105 pg/mL H 200-900 Oct 02, 2023 08:57 AM [facility] MICROSCOPIC AUTOMATED, URINE Specimen Type: URINE Comment: If Glucose = >500 and Ketones are positive, please alert the Physician. Ordering Provider: NITISH ASENCIO Report Released Date/Time: Sep 16, 2023 06:52 PM Reporting Lab: [address] [address] Performing Lab: [facility] [address] [facility] [address] UA WBC 0-5 /[HPF] 0-5 UA MUCUS FEW /[LPF] Trace UA RBC 0-2 /[HPF] 0-3 Oct 02, 2023 08:57 AM [facility] CBC AND DIFF (AUTO) Specimen Type: BLOOD No comment entered. Ordering Provider: NITISH ASENCIO Report Released Date/Time: Sep 16, 2023 06:52 PM Reporting Lab: [facility] [address] [facility] [address] Performing Lab: [address] [address] WBC 6.61 10*3/uL 4.50-11.00 RBC 4.42 10*6/uL [...] 0.00-0.00 Oct 02, 2023 08:57 AM [facility] URINALYSIS CLEAN CATCH Specimen Type: URINE Comment: If Glucose = >500 and Ketones are positive, please alert the Physician. Ordering Provider: NITISH ASENCIO Report Released Date/Time: Sep 16, 2023 06:52 PM Reporting Lab: [address] [address] Performing Lab: [address] [address] UA COLOR Light-Yellow Yellow UA APPEARANCE Clear [...] VA-TOBACCO QUIT 15 YRS OR MORE [facility] Tobacco Use History This section includes a history of the smoking, or tobacco-related health factors, that were collected on or before the date of the Encounter. The data comes from the [place] facility where the Encounter took place. Date/Time Smoking Status/Tobacco Use Comment F acility Sep 26, 2023 09:00 AM VA-TOBACCO QUIT 15 YRS OR MORE [facility] [place] [facility] Oct 18, 2022 03:16 PM VA-TOBACCO FORMER USER [place] [facility] [place] [facility] Oct 18, 2022 03:16 PM VA-TOBACCO QUIT 15 YRS OR MORE [facility] [place] [facility] Nov 12, 2021 10:30 AM VA-TOBACCO FORMER USER [place] [facility] [place] [facility] Nov 12, 2021 10:30 AM VA-TOBACCO QUIT 5 TO < 15 YRS [facility] [place] [facility] Oct 01, 2020 11:02 AM VA-TOBACCO FORMER USER [facility] [place] [facility] Oct 01, 2020 11:02 AM VA-TOBACCO QUIT 15 YRS OR MORE [facility] [place] [facility] Oct 25, 2019 11:30 AM VA-TOBACCO FORMER USER [facility] [place] [facility] Oct 25, 2019 11:30 AM VA-TOBACCO QUIT 5 TO < 15 YRS [facility] [place] [facility] Sep 07, 2018 09:43 AM VA-TOBACCO FORMER USER [facility] [place] [facility] Sep 07, 2018 09:43 AM VA-TOBACCO QUIT 5 TO < 15 YRS [facility] [place] [facility] Apr 25, 2018 02:08 PM VA-TOBACCO USE DEC LINED TO ANSWER [facility] [place] [facility] Radiology Reports: +/- 30 days [...] CT PULMONARY NODULES W/O CONTRAST: NAINA BREEN [id number] -[id number] M Exm Date: OCT 25, 2023@09:53 Req Phys: NITISH ASENCIO Loc: CWM/NO/PACT 2 (Req'g Loc) Img Loc: NHM/CT Service: Unknown [place] [facility] [place] [address] (Case 133 COMPLETE) CT THORAX W/O CONT (CT Detailed) CPT:71528 Reason for Study: look for cancer Clinical History: Report Status: Verified Date Reported: OCT 25, 2023 Date Verified: OCT 25, 2023 Telemarketing Manager E-Sig:/ES/RONNIE COLMENARES JR Report: Study: Noncontrast [...] Primary Interpreting Staff: RONNIE COLMENARES JR, Radiologist (Telemarketing Manager) /RONNIE WOLFE JR [facility] Encounter Notes: All associated encounter notes This section contains the clinical notes associated to the Encounter. Date/Time Encounter Note(s) Provider Source Oct 26, 2023 04:14 PM PHYSICIAN NOTE: LOCAL TITLE: MD NOTE STANDARD TITLE: PHYSICIAN NOTE DATE OF NOTE: OCT 26, 2023@16:14 ENTRY DATE: OCT 26, 2023@16:14:37 AUTHOR: NITISH ASENCIO EXP COSIGNER: URGENCY: STATUS: COMPLETED Patient letter dated today and recent MRI sent to patient via email. [email or web address]/ Nitish Gallegos. MD [place] Staff Physician Signed: 10/26/2023 16:15 NITISH ASENCIO [facility]
--- OUTSIDE RECORDS SUMMARY | 2024-02-15 17:27 | XMS_ITS | Encounter Summary ---
Author Name [facility] ([place]) Address [address] [place] [address] Care Team Providers Care Seconds Grader Name Role Phone ROSELYN PEREZ Primary Care [...] Oct 05, 2022 [id number] NOEMI BREEN ERT PATIENT MEDICARE (WNR) MEDICARE (M) PART A Feb 13, 2019 PART A [id number] [phone] NOEMI BREEN ERT PATIENT MEDICARE (WNR) MEDICARE (M) PART B Feb 13, 2019 PART B [id number] NOEMI BREEN ERT PATIENT MEDICARE (WNR) MEDICARE (M) PART A Feb 13, 2019 PART A [id number] NOEMI BREEN ERT PATIENT MEDICARE (WNR) MEDICARE (M) PART B Feb 13, 2019 PART B [id number] NOEMI BREEN ERT PATIENT MEDICARE (WNR) MEDICARE (M) PART A Feb 13, 2019 PART A [id number] NOEMI BREEN ERT PATIENT MEDICARE (WNR) MEDICARE (M) PART B Feb 13, 2019 PART B [id number] [phone] NOEMI BREEN ERT PATIENT FOR LIFE TFL* Feb 13, 2019 [id number] NOEMI BREEN ERT PATIENT FOR LIFE SUPPLEMEN SHAI TFL Feb 13, 2019 [facility] [id number] NOEMI BREEN ERT PATIENT -FO R-LIFE DIREC T CARE Oct 05, 2022 [facility] LIFE [id number] NOEMI BREEN ERT PATIENT Selected Encounter This section includes the information on record at [place] for the Encounter. Date/Time Encounter Type Encounter Description Reason Pro vider Source Nov 16, 2023 04:51 PM Outpatient Encounter PRIMARY CARE/MEDICINE IHE Encounter [...] - MEDICINE [place] [facility] [place] [facility] Dec 20, 2023 02:30 PM AMBULATORY - MEDICINE [place] [facility] [place] [facility] Jan 01, 2024 02:00 PM AMBULATORY - MEDICINE [place] [facility] [place] [facility] Mar 19, 2024 01:00 PM AMBULATORY - PSYCHIATRY [facility] [place] [facility] Apr 24, 2024 01:30 PM AMBULATORY - NONE [facility] [place] [facility] Apr 30, 2024 03:00 PM AMBULATORY - MEDICINE [place] [facility] [place] [facility] Active, Pending, and Scheduled Orders [...] Date/Time Test Type Test Details Facility Name Dec 31, 2023 08:22 PM Consult Order PSYCHIATRI C MEDICATION BHIP/NHM OUTPT Cons [employer] Consultant's Choice [place] [facility] [place] [facility] Social History: Smoking Status (Most [...] AM VA-TOBACCO QUIT 15 YRS OR MORE [facility] Tobacco Use History This section includes a history of the smoking, or tobacco-related health factors, that were collected on or before the date of the Encounter. The data comes from the [place] facility where the Encounter took place. Date/Time Smoking Status/Tobacco Use Comment F acility Sep 26, 2023 09:00 AM VA-TOBACCO QUIT 15 YRS OR MORE [place] [facility] [place] [facility] Oct 18, 2022 03:16 PM VA-TOBACCO FORMER USER [place] [facility] [place] [facility] Oct 18, 2022 03:16 PM VA-TOBACCO QUIT 15 YRS OR MORE [facility] [place] [facility] Nov 12, 2021 10:30 AM VA-TOBACCO FORMER USER [facility] [place] [facility] Nov 12, 2021 10:30 AM VA-TOBACCO QUIT 5 TO < 15 YRS [facility] [place] [facility] Oct 01, 2020 11:02 AM VA-TOBACCO FORMER USER [facility] [place] [facility] Oct 01, 2020 11:02 AM VA-TOBACCO QUIT 15 YRS OR MORE [facility] [place] [facility] Oct 25, 2019 11:30 AM VA-TOBACCO [facility]ER [facility] Oct 25, 2019 11:30 AM VA-TOBACCO QUIT 5 TO < 15 YRS [facility] Sep 07, 2018 09:43 AM VA-TOBACCO FORMER USER [facility] Sep 07, 2018 09:43 AM VA-TOBACCO QUIT 5 TO < 15 YRS [facility] Apr 25, 2018 02:08 PM VA-TOBACCO USE DEC LINED TO ANSWER [facility] Radiology Reports: +/- 30 days of [...] CT PULMONARY NODULES W/O CONTRAST: NAINA BREEN [id number] -1955 M Exm Date: OCT 25, 2023@09:53 Req Phys: NITISH ASENCIO Loc: CWM/NO/PACT 2 (Req'g Loc) Img Loc: NHM/CT Service: [place] [address] (Case [id number] COMPLETE) CT THORAX W/O CONT (CT Detailed) CPT:82370 Reason for Study: look for cancer Clinical History: Report Status: Verified Date Reported: OCT 25, 2023 Date Verified: OCT 25, 2023 Supervisor Hot [employer]ning E-Sig:/ES/RONNIE COLMENARES JR Report: Study: Noncontrast CT [...] Primary Interpreting Staff: RONNIE COLMENARES JR, Radiologist (Supervisor Hot Dip Tinning) /RONNIE WOLFE JR [facility] Encounter Notes: All associated encounter notes This section contains the clinical notes associated to the Encounter. Date/Time Encounter Note(s) Provider Source Nov 16, 2023 04:52 PM NONVA CONSULT: LOCAL TITLE: MD/OUTSIDE CONSULT REPORT SUMMARY STANDARD TITLE: NONVA CONSULT DATE OF NOTE: NOV 16, 2023@16:52 ENTRY DATE: NOV 16, 2023@16:52:23 AUTHOR: NITISH ASENCIO EXP COSIGNER: URGENCY: STATUS: COMPLETED 10-31-[address] Charles Nephrology [facility] Chief complaint: Chronic renal insufficiency Plan: No medication changes Follow-up 6 months /ta/ Nitish Asencio MD Staff Physician Signed: 11/16/2023 16:52 NITISH ASENCIO [facility] Nov 16, 2023 04:51 PM NONVA CONSULT: LOCAL TITLE: MD/OUTSIDE CONSULT REPORT SUMMARY STANDARD TITLE: NONVA CONSULT DATE OF NOTE: NOV 16, 2023@16:51 ENTRY DATE: NOV 16, 2023@16:51:25 AUTHOR: NITISH ASENCIO EXP COSIGNER: URGENCY: STATUS: COMPLETED 11-09-[address] Billy Urology History of prostate cancer Right renal cell carcinoma treated with nephrectomy New mass left kidney Possible recurrent cancer in bed of right kidney Plan: Interventional radiology for left kidney biopsy Follow-up 1 month /ta/ Nitish Asencio MD Staff Physician Signed: 11/16/2023 16:51 NITISH ASENCIO [facility]
--- OUTSIDE RECORDS SUMMARY | 2024-02-15 17:27 | XMS_ITS | Encounter Summary ---
Author Name [facility] [place] Organization [facility] [place] Address [address] [place] [address] Care Team Providers Care Business Liaison Officer Name Role Phone ROSELYN PEREZ Primary Care [...] TRICA RE DODA WNR Oct 05, 2022 [facility] [id number] NOEMI BREEN ERT PATIENT MEDICARE (WNR) MEDICARE (M) PART B Feb 13, 2019 PART B [id number] HUNTERNOEMI SMALLWOOD ERT PATIENT MEDICARE (WNR) MEDICARE (M) PART A Feb 13, 2019 PART A [id number] NOEMI BREEN ERT PATIENT MEDICARE (WNR) MEDICARE (M) PART A Feb 13, 2019 PART A [id number] NOEMI BREEN ERT PATIENT MEDICARE (WNR) MEDICARE (M) PART B Feb 13, 2019 PART B [id number] [phone] NOEMI BREEN ERT PATIENT MEDICARE (WNR) MEDICARE (M) PART A Feb 13, 2019 PART A [id number] NOEMI BREEN ERT PATIENT MEDICARE (WNR) MEDICARE (M) PART B Feb 13, 2019 PART B [id number] [phone] NOEMI BREEN ERT PATIENT FOR LIFE TFL* Feb 13, 2019 [id number] NOEMI BREEN ERT PATIENT FOR LIFE SUPPLEMEN HSAI TFL Feb 13, 2019 [facility] [id number] NOEMI BREEN ERT PATIENT -FO R-LIFE DIREC T CARE Oct 05, 2022 [facility] [id number] [phone] NOEMI BREEN ERT PATIENT Selected Encounter This section includes the information on record at [place] for the Encounter. Date/Time Encounter Type Encounter Description Reason Provider Source Nov 09, 2023 09:30 AM OFFICE O/P EST SF [facility] - IND ICD-10-CM F41.9 Anxiety disorder, unspecified CARSON MESA MD [facility] Encounter Template Text not used by [place] Assessments - Encounter Diagnoses This section includes the primary and secondary diagnoses documented for the Encounter. Date/Time Primary/Secondary Diagnosis Diagnosis Name Provider Source Nov 09, 2023 09:47 AM PRIMARY Anxiety disorder, unspecified CARSON MESA MD [facility] Plan of Treatment: Future Appointments (+ 6 months) and Future Tests (+/- 45 days) The Plan of Treatment section includes future care activities for the patient from all [place] treatmentfacilities. This section includes future appointments and future orders which are active, pending or scheduled. Future Appointments This section includes appointments that were scheduled to occur 6 months from the date of the Encounter, up to a maximum of 20 appointments. The data comes from all [place] treatment facilities. Appointment Date/Time Appointment Type Appointme nt Facility Name Nov 23, 2023 03:30 PM AMBULATORY - MEDICINE [facility] Dec 20, 2023 02:30 PM [facility] Jan 01, 2024 02:00 PM AM[facility]ULATORY - MEDICINE [facility] [place] [facility] Mar 19, 2024 01:00 PM AMBULATORY - PSYCHIATRY [facility] [place] [facility] Apr 24, 2024 01:30 PM AMBULATORY - NONE [facility] [place] [facility] Apr 30, 2024 03:00 PM AMBULATORY - MEDICINE [facility] [place] [facility] Social History: Smoking Status (Most current) and Tobacco Use (All prior to encounter date) This section includes the most current, and the historical, smoking and tobacco- related health factors from the [place] facility where the Encounter took place. Current Smoking Status This section includes the most current smoking, or tobacco-related health factor, from the [place] facility where the Encounter took place. Date/Time Current Smoking Status Comment Facil ity Sep 26, 2023 09:00 AM VA-TOBACCO QUIT 15 YRS OR MORE [facility] [place] [facility] Tobacco Use History This section includes a history of the smoking, or tobacco-related health factors, that were collected on or before the date of the Encounter. The data comes from the [place] facility where the Encounter took place. Date/Time Smoking Status/Tobacco Use Comment F acility Sep 26, 2023 09:00 AM VA-TOBACCO QUIT 15 YRS OR MORE [facility] [place] [facility] Oct 18, 2022 03:16 PM VA-TOBACCO FORMER USER [facility] [place] [facility] Oct 18, 2022 03:16 PM VA-TOBACCO QUIT 15 YRS OR MORE [facility] [place] [facility] Nov 12, 2021 10:30 AM VA-TOBACCO FORMER USER [facility] [place] [facility] Nov 12, 2021 10:30 AM VA-TOBACCO QUIT 5 TO < 15 YRS [facility] [place] [facility] Oct 01, 2020 11:02 AM VA-TOBACCO FORMER USER [facility] [place] [facility] Oct 01, 2020 11:02 AM VA-TOBACCO QUIT 15 YRS OR MORE [facility] [place] [facility] Oct 25, 2019 11:30 AM VA-TOBACCO FORMER USER [facility] [place] [facility] Oct 25, 2019 11:30 AM VA-TOBACCO QUIT 5 TO < 15 YRS [facility] [place] [facility] Sep 07, 2018 09:43 AM AR-TOBACCO FORMER USER [facility] Sep 07, 2018 09:43 AM AR-TOBACCO QUIT 5 TO < 15 YRS [facility] Apr 25, 2018 02:08 PM VA-TOBACCO USE DEC LINED TO ANSWER [facility] Radiology Reports: +/- 30 days [...] the Encounter. The data comes from all [place] treatment facilities. Date/Time Radiology Report Provider Source Oct 25, 2023 09:[address] PULMONARY NODULES W/O CONTRAST: NAINA BREEN [id number] -1955 M Exm Date: OCT 25, 2023@09:53 Req Phys: ISABELA ASENCIO Loc: CWM/NO/PACT 2 (Req'g Loc) Img Loc: NHM/CT Service: Unknown [facility] [place] [address] (Case [id number] COMPLETE) CT THORAX W/O CONT (CT Detailed) CPT:16875 Reason for Study: look for cancer Clinical History: Report Status: Verified Date Reported: OCT 25, 2023 Date Verified: OCT 25, 2023 Superintendent Stations E-Sig:/ES/RONNIE COLMENARES JR Report: Study: Noncontrast CT [...] Primary Interpreting Staff: RONNIE COLMENARES JR, Radiologist (Superintendent Stations) /RONNIE WOLFE JR [place] [facility] [place] [facility] Encounter Notes: All associated encounter notes This section contains the clinical notes associated to the Encounter. Date/Time Encounter Note(s) Provider Source Nov 09, 2023 07:53 AM PSYCHIATRY NOTE: LOCAL TITLE: PSYCHIATRY/FOLLOW-UP NOTE STANDARD TITLE: PSYCHIATRY NOTE DATE OF NOTE: NOV 09, 2023@07:53 ENTRY DATE: NOV 09, 2023@07:54:01 AUTHOR: JAKUB MESA EXP COSIGNER: URGENCY: STATUS: [...] ONCE DAILY NAINA BREEN is a [place], 68 yo, male who [facility] 15 minutes for medication management. Two identifiers were used. CC: Good. They seem to be working fine. I sleep good at night it used to be a problems but not any more. No panic attacks in over a year. Souleymane has been taking a memory pill (Prevagen) for a year as reports souleymane has had some problems with his memory. He is doing well on current medications. Some alcohol, I drink wine every once in a while and I smoke marijuana too . Sleep is good, I get about 8-9 hours of sleep and appetite is, too good, I stopped eating ice cream and I'm trying to lose weight . No adverse side effects from current medications were reported, no. Mood is stable, lackadaisical. Souleymane has been on abilify for quite a while and he is stable on it. Discussed continuation of present medications as above. Patient education given including not taking anyone else's medications or giving his medications to anyone else and to protect his medications from theft and children. Souleymane is agreeable. MSE: NAINA BREEN is an obese, balding, 68 yo, male who is casually dressed wearing jeans, a t-shirt, a hooded sweatshirt, a long mora and glasses. He is alert, oriented, pleasant and cooperative with good contact during interview. Speech is goal directed with normal kinetics. Mood is euthymic and affect is full and appropriate to thought content. Memory appears to be intact. No suicidal or homicidal ideations, no . No hallucinations or delusions were elicited. Good general fund of knowledge. Insight and judgement is good. Assessment: Anxiety Disorder Plan: Continue present medications as above. Encouraged vet to take medications as prescribed. Labs pending. RTC in 2-3 months or earlier if needed. AIMS Testing: AIMS (Mental Health Instrument) The patient was evaluated for symptoms of tardive dyskinesia using the AIMS. Total score for items 1-7: 0 /es/ JAKUB Handy. MOSHE CASTORENA MD STAFF PSYCHIATRIST Signed: 11/09/2023 09:47 JAKUB MESA MD [facility]
--- OUTSIDE RECORDS SUMMARY | 2024-02-15 17:28 | XMS_ITS | Encounter Summary ---
Author Name [facility] [place] [facility] [place] Address [address] [place] [address] Care Team Providers Care Hoof And Shoe Inspector Name Role Phone RSOELYN PEREZ Primary Care Provider NITISH Ramirez Primary [...] TRICA RE DODA WNR Oct 05, 2022 [facility] [id number] NOEMI BREEN ERT PATIENT MEDICARE (WNR) MEDICARE (M) PART A Feb 13, 2019 PART A [id number] NOEMI BREEN ERT PATIENT MEDICARE (WNR) MEDICARE (M) PART B Feb 13, 2019 PART B [id number] [phone] [id number] NOEMI BREEN ERT PATIENT MEDICARE (WNR) MEDICARE (M) PART A Feb 13, 2019 PART A [id number] NOEMI BREEN ERT PATIENT MEDICARE (WNR) MEDICARE (M) PART B Feb 13, 2019 PART B [id number] NOEMI BREEN ERT PATIENT MEDICARE (WNR) MEDICARE (M) PART A Feb 13, 2019 PART A [id number] [phone] NOEMI BREEN ERT PATIENT MEDICARE (WNR) MEDICARE (M) PART B Feb 13, 2019 PART B [id number] [phone] NOEMI BREEN ERT PATIENT FOR LIFE TFL* Feb 13, 2019 [id number] NOEMI BREEN ERT PATIENT FOR LIFE SUPPLEMEN SHAI TFL Feb 13, 2019 [facility] [id number] 90 NOEMI BREEN ERT PATIENT -FO R-LIFE DIREC T CARE Oct 05, 2022 [facility] [id number] 90 NOEMI BREEN ERT PATIENT Selected Encounter This section includes the information on record at [place] for the Encounter. Date/Time Encounter Type Encounter Description Reason Provider Source Jan 01, 2024 02:00 PM OFFICE O/P EST SF 10 MIN PRIMARY CARE/MEDICINE ICD-10-CM R41.3 Other amnesia NITISH ASENCIO [facility] Encounter Template Text not used by [place] Assessments - Encounter Diagnoses This section includes the primary and secondary diagnoses documented for the Encounter. Date/Time Primary/Secondary Diagnosis Diagnosis Name Provider Source Jan 01, 2024 02:30 PM PRIMARY Other amnesia NITISH ASENCIO [facility] Jan 01, 2024 02:30 PM SECONDARY Encounter for immunization ZHEN MORRISSEY [facility] Plan of Treatment: Future Appointments (+ [...] Appointment Type Appointme nt Facility Name Mar 19, 2024 01:00 PM AMBULATORY - PSYCHIATRY [facility] Apr 24, 2024 01:30 PM AMBULATORY - NONE [facility] [place] [facility] Apr 30, 2024 03:00 PM AMBULATORY - MEDICINE [facility] Active, Pending, and Scheduled Orders This section includes a listing of several types of active, pending, and scheduled orders, including clinic medications orders, diagnostic test orders, procedure orders and consult orders; where the start date of the order is 45 days before the date of the Encounter or 45 days after the date of theEncounter. The data comes from all [place] treatment facilities. Test Date/Time Test Type Test Details Facility Name Dec 31, 2023 08:22 PM Consult Order PSYCHIATRI C MEDICATION BHIP/NHM OUTPT Cons Management Trainee Marketing's [facility] Vital Signs: All taken on the encounter date This section contains inpatient and outpatient Vital Signs collected on the date of the Encounter. Date/Time Temperature Pulse Blood Pressure Respiratory Rate SP02 Pain Height Weight Body Mass Index Source Jan 01, 2024 02:01 PM 98 70 124/83 16 95 0 70 260.1 37 [facility] Immunizations: All administered on the encounter date This section contains immunizations associated to the Encounter. Immunization Series Date Issued Reaction Comments COVID-19 (MODERNA), MRNA, LN P-S, PF, 50 MCG/0.5 ML (AGES 12+ YEARS) 6 Jan 01, 2024 INFLUENZA, HIGH-DOSE, TRIVALENT, PF Dec 31 Social History: Smoking Status (Most current) and [...] 26, 2023 09:00 AM VA-TO[facility]ACCO [facility] Tobacco Use History This section includes a history of the smoking, or tobacco-related health factors, that were collected on or before the date of the Encounter. The data comes from the [place] facility where the Encounter took place. Date/Time Smoking Status/Tobacco Use Comment F acility Sep 26, 2023 09:00 AM VA-TOBACCO QUIT 15 YRS OR MORE [facility] [place] [facility] Oct 18, 2022 03:16 PM VA-TOBACCO FORMER USER [facility] [place] [facility] Oct 18, 2022 03:16 PM VA-TOBACCO QUIT 15 YRS OR MORE [facility] [place] [facility] Nov 12, 2021 10:30 AM VA-TOBACCO FORMER USER [facility] [place] [facility] Nov 12, 2021 10:30 AM VA-TOBACCO QUIT 5 TO < 15 YRS [facility] [place] [facility] Oct 01, 2020 11:02 AM VA-TOBACCO FORMER USER [facility] [place] [facility] Oct 01, 2020 11:02 AM VA-TOBACCO QUIT 15 YRS OR MORE [facility] [place] [facility] Oct 25, 2019 11:30 AM VA-TOBACCO FORMER USER [facility] [place] [facility] Oct 25, 2019 11:30 AM VA-TOBACCO QUIT 5 TO < 15 YRS [facility] [place] [facility] Sep 07, 2018 09:43 AM VA-TOBACCO FORMER USER [facility] [place] [facility] Sep 07, 2018 09:43 AM VA-TOBACCO QUIT 5 TO < 15 YRS [facility] [place] [facility] Apr 25, 2018 02:08 PM VA-TOBACCO USE DEC LINED TO ANSWER [facility] [place] [facility] Encounter Notes: All associated encounter notes This section contains the clinical notes associated to the Encounter. 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: NAINA BREEN VITALS: Patient temperature: 98 F [36.7 C] (01/01/2024 14:01) Blood pressure: 124/83 (01/01/2024 14:01) Patient height: 70 in [177.8 cm] (01/01/2024 14:01) Patient weight: 260.1 lb [117.98 kg] (01/01/2024 14:01) Patient BMI: BMI: 37.4 Patient pulse: 70 (01/01/2024 14:01) Patient respiration: 16 (01/01/2024 14:01) Patient Pulse Oximetry: 95% (01/01/2024 14:01) Pain Ratin (01/01/2024 14:01) Active VA Medications: Active Outpatient Medications (including Supplies): Active Outpatient Medications Status 1) ARIPIPRAZOLE 20MG TAB TAKE ONE-HALF TABLET BY MOUTH ACTIVE ONCE DAILY MOOD 2) CARVEDILOL 6.25MG TAB TAKE ONE TABLET BY MOUTH TWICE ACTIVE DAILY WITH FOOD 3) DICLOFENAC NA 1% TOP GEL APPLY 2 GRAMS TOPICALLY ACTIVE THREE TIMES DAILY NEEDED DIRECTED FOR LEFT SHOULDER PAIN - USE DOSING CARD PROVIDED IN BOX 4) VENLAFAXINE HCL 75MG 24HR SA CAP TAKE ONE CAPSULE BY ACTIVE MOUTH ONCE DAILY DEPRESSION/ ANXIETY Active Non-VA Medications Status 1) Non-VA MULTIVITAMIN CAP/TAB 1 TABLET BY MOUTH ONCE ACTIVE DAILY 2) Non-VA OTHER CAP/TAB AREDS EYE VITAMINS BY MOUTH ONCE ACTIVE DAILY 6 Total Medications Remote Medications: No Active 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 Psychologist sent the patient to [facility] for further testing. Patient feels well today with no complaints. 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 Decreased memory: Evaluation in progress Plan: Continue neuropsychology evaluation Follow-up 4 months clinic visit and lab Medication Reconciliation: Outpatient: Has the patient been taking medications as documented in the EMLR? YES: The patient has been taking medications as documented in the EMLR. Essential Medication List for Review used to complete this medication reconciliation. INCLUDED IN THIS LIST: Alphabetical list of active outpatient prescriptions dispensed from this VA (local) and dispensed from another VA or DoD facility (remote) as well as [...] /ta/ Nitish Asencio MD Staff Physician Signed: 01/01/2024 14:30 NITISH ASENCIO [place] [facility] [place] [facility] Jan 01, 2024 02:06 PM PREVENTIVE MEDICINE NURSING NOTE: LOCAL TITLE: CLINICAL REMINDERS/NURSING STANDARD TITLE: PREVENTIVE MEDICINE NURSING NOTE DATE OF NOTE: JAN 01, 2024@14:06 ENTRY DATE: JAN 01, 2024@14:06:11 AUTHOR: BRITTNI MORRISSEY EXP COSIGNER: URGENCY: STATUS: COMPLETED CLINICAL REMINDERS/NURSING Has ADDENDA Sexual Orientation: The patient thinks of their sexual orientation as: Straight or Heterosexual Advance Directive Screen MH AD: Patient has an up-to-date Advance Directive at an outside, non-va facility and was asked to forward a copy to his/her clinician. Comment: will get a copy to this [place] /ta/ BRITTNI MORRISSEY LPN LPN Signed: 01/01/2024 14:08 01/01/2024 ADDENDUM STATUS: COMPLETED Influenza Immunization: Influenza, High-Dose, Trivalent, Preservative Free (Fluzone-Syringe) Administered: INFLUENZA, HIGH-DOSE, TRIVALENT, PF Date Administered: Jan 01, 2024 14:00 Series: Complete Metallurgical Engineering Teacher: SANOFI PASTEUR Lot: [id number] Exp Date: Aug 12, 2024 NDC: [id number] Admin Route/Site: INTRAMUSCULAR/RIGHT DELTOID Dosage: 0.5mL Vaccine Information Statement(s): INFLUENZA(FLU) VACC(INACTIVATED OR RECOMBINANT)VIS Sep 18, 2020 (SAMOAN) Order By: Policy Administered By: Brittni Morrissey The Influenza Vaccine Information Statement (VIS) was reviewed with the patient/caregiver which lists the benefits and risks of the vaccine and the risks of not receiving the Influenza vaccine. The patient/caregiver denied any prior severe reaction to this vaccine or its components or a severe allergic reaction, such as anaphylaxis, to any vaccine or any injectable therapy. The patient/caregiver gave verbal consent to receive the vaccine. COVID-19 Immunization: Moderna Monovalent (Spikevax) Administered: COVID-19 (MODERNA), MRNA, LNP-S, PF, 50 MCG/0.5 ML (AGES 12+ YEARS) Date Administered: Jan 01, 2024 14:00 Series: Series 6 Metallurgical Engineering Teacher: Digby. Lot: [id number] Exp Date: July 13, 2024 NDC: [id number] Admin Route/Site: INTRAMUSCULAR/RIGHT DELTOID Dosage: 0.5mL Vaccine Information Statement(s): COVID-19 MRNA VACCINE (12+ YRS) VACCINE VIS Nov 30, 2023 (SAMOAN) Order By: Policy Administered By: Brittni Morrissey Vaccine administered without complications. /ta/ BRITTNI MORRISSEY LPN LPN Signed: 01/01/2024 14:58 BRITTNI MORRISSEY [facility]
--- OUTSIDE RECORDS SUMMARY | 2024-02-15 17:28 | XMS_ITS | Encounter Summary ---
Author Name [facility] ([place]) Address [address] [place] [address] Care Team Providers Care Viticulture Teacher Name Role Phone ROSELYN PEREZ Primary Care [...] TR[id number] NOEMI BREEN ERT PATIENT MEDICARE (WNR) MEDICARE (M) PART A Feb 13, 2019 PART A [id number] NOEMI BREEN ERT PATIENT MEDICARE (WNR) MEDICARE (M) PART B Feb 13, 2019 PART B [id number] [phone] NOEMI BREEN ERT PATIENT MEDICARE (WNR) MEDICARE (M) PART A Feb 13, 2019 PART A [id number] NOEMI BREEN ERT PATIENT MEDICARE (WNR) MEDICARE (M) PART B Feb 13, 2019 PART B [id number] NOEMI BREEN ERT PATIENT MEDICARE (WNR) MEDICARE (M) PART A Feb 13, 2019 PART A [id number] NOEMI BREEN ERT PATIENT MEDICARE (WNR) MEDICARE (M) PART B Feb 13, 2019 PART B [id number] [phone] NOEMI BREEN ERT PATIENT FOR LIFE TFL* Feb 13, 2019 [id number] 90 NOEMI BREEN ERT PATIENT FOR LIFE SUPPLEMEN SHAI TFL Feb 13, 2019 [facility] [id number] 90 NOEMI BREEN ERT PATIENT -FO R-LIFE DIREC T CARE Oct 05, 2022 [facility] [id number] 90 NOEMI BREEN ERT PATIENT Selected Encounter This section includes the information on record at [place] for the Encounter. Date/Time Encounter Type Encounter Description Reason Pro vider Source Dec 28, 2023 02:13 PM Outpatient Encounter PRIMARY CARE/MEDICINE IHE Encounter [...] Date/Time Appointment Type Appointme nt Facility Name Jan 01, 2024 02:00 PM [facility]BUL[facility] [place] [facility] Mar 19, 2024 01:00 PM [facility] Apr 24, 2024 01:30 PM [facility] [place] [facility] Apr 30, 2024 03:00 PM AMBULATORY - [facility]ICINE [facility] Active, Pending, and Scheduled Orders This [...] Order PSYCHIATRI C MEDICATION BHIP/NHM OUTPT Cons Respiratory Medicine Physician's Choice [place] [facility] [place] [facility] Social History: Smoking Status (Most current) and [...] 26, 2023 09:00 AM VA-TOBACCO FORMER USER [place] [facility] [place] [facility] Tobacco Use History This section includes a history of the smoking, or tobacco-related health factors, that were collected on or before the date of the Encounter. The data comes from the [place] facility where the Encounter took place. Date/Time Smoking Status/Tobacco Use Comment F acility Sep 26, 2023 09:00 AM VA-TOBACCO QUIT 15 YRS OR MORE [place] [facility] [place] [facility] Oct 18, 2022 03:16 PM VA-TOBACCO FORMER USER [facility] [place] [facility] Oct 18, 2022 03:16 PM VA-TOBACCO QUIT 15 YRS OR MORE [facility] [place] [facility] Nov 12, 2021 10:30 AM VA-TOBACCO FORMER USER [facility] [place] [facility] Nov 12, 2021 10:30 AM VA-TOBACCO QUIT 5 TO < 15 YRS [facility] [place] [facility] Oct 01, 2020 11:02 AM VA-TOBACCO FORMER USER [facility] [place] [facility] Oct 01, 2020 11:02 AM VA-TOBACCO QUIT 15 YRS OR MORE [facility] [place] [facility] Oct 25, 2019 11:30 AM VA-TOBACCO FORMER USER [facility] [place] [facility] Oct 25, 2019 11:30 AM VA-TOBACCO QUIT 5 TO < 15 YRS [facility] [place] [facility] Sep 07, 2018 09:43 AM VA-TOBACCO FORMER USER [facility] [place] [facility] Sep 07, 2018 09:43 AM VA-TOBACCO QUIT 5 TO < 15 YRS [facility] Apr 25, 2018 02:08 PM VA-TOBACCO USE DEC LINED [facility] Encounter Notes: All associated encounter notes This section contains the clinical notes associated to the Encounter. Date/Time Encounter Note(s) Provider Source Dec 28, 2023 02:13 PM NONVA CONSULT: LOCAL TITLE: MD/OUTSIDE CONSULT REPORT SUMMARY STANDARD TITLE: NONVA CONSULT DATE OF NOTE: DEC 28, 2023@14:13 ENTRY DATE: DEC 28, 2023@14:13:29 AUTHOR: NITISH ASENCIO EXP COSIGNER: URGENCY: STATUS: COMPLETED 12-20-[address] Mancera Nephrology Chief complaint: Hypertension Plan: Add carvedilol 6.25 mg p.o. twice daily Follow-up 6 weeks /ta/ Nitish Asencio MD Staff Physician Signed: 12/28/2023 14:13 [facility]ITISH [facility]ENCIO [facility]
--- OUTSIDE RECORDS SUMMARY | 2024-02-15 17:28 | XMS_ITS | Encounter Summary ---
Author Name [facility] Organization [facility] ([place]) Address [address] [place] [address] Care Team Providers Care Fruit Preserver Name Role Phone ROSELYN PEREZ Primary Care [...] RE DODA WNR Oct 05, 2022 [facility] [id number] 90 NOEMI BREEN ERT PATIENT MEDICARE (WNR) MEDICARE (M) PART A Feb 13, 2019 PART A [id number] NOEMI BREEN ERT PATIENT MEDICARE (WNR) MEDICARE (M) PART B Feb 13, 2019 PART B [id number] NOEMI BREEN ERT PATIENT MEDICARE (WNR) MEDICARE (M) PART A Feb 13, 2019 PART A [id number] NOEMI BREEN ERT PATIENT MEDICARE (WNR) MEDICARE (M) PART B Feb 13, 2019 PART B [id number] NOEMI BREEN ERT PATIENT MEDICARE (WNR) MEDICARE (M) PART A Feb 13, 2019 PART A [id number] NOEMI BREEN ERT PATIENT MEDICARE (WNR) MEDICARE (M) PART B Feb 13, 2019 PART B [id number] NOEMI BREEN ERT PATIENT FOR LIFE TFL* Feb 13, 2019 [id number] 90 NOEMI BREEN ERT PATIENT FOR LIFE SUPPLEMEN SHAI TFL Feb 13, 2019 [facility] [id number] 90 NOEMI BREEN ERT PATIENT -FO R-LIFE DIREC T CARE Oct 05, 2022 [facility] [id number] 90 NOEMI BREEN ERT PATIENT Selected Encounter This section includes the information on record at [place] for the Encounter. Date/Time Encounter Type Encounter Description Reason Pro vider Source Dec 28, 2023 02:14 PM Outpatient Encounter PRIMARY CARE/MEDICINE IHE Encounter [...] 01, 2024 02:00 PM [facility]UL[facility]ORY [facility] [place] [facility] Mar 19, 2024 01:00 PM [facility] Apr 24, 2024 01:30 PM [facility] [place] [facility] Apr 30, 2024 03:00 PM AMBULATORY - MEDICINE [facility] Active, Pending, and Scheduled Orders [...] Order PSYCHIATRI C MEDICATION BHIP/NHM OUTPT Cons Boat Washer's Choice [place] [facility] [facility] Social History: Smoking Status (Most current) [...] AM VA-TOBACCO QUIT 15 YRS OR MORE [place] [facility] Tobacco Use History This section includes a history of the smoking, or tobacco-related health factors, that were collected on or before the date of the Encounter. The data comes from the [place] facility where the Encounter took place. Date/Time Smoking Status/Tobacco Use Comment F acility Sep 26, 2023 09:00 AM VA-TOBACCO QUIT 15 YRS OR MORE [place] [facility] [facility] Oct 18, 2022 03:16 PM VA-TOBACCO FORMER USER [place] [facility] [place] [facility] Oct 18, 2022 03:16 PM VA-TOBACCO [...] 07, 2018 09:43 AM VA-TOBACCO FORMER USER [place] [facility] [facility] Sep 07, 2018 09:43 AM VA-TOBACCO QUIT 5 TO < 15 YRS [place] [facility] [facility] Apr 25, 2018 02:08 PM VA-TOBACCO USE DEC LINED TO ANSWER [place] [facility] [facility] Encounter Notes: All associated encounter notes This section contains the clinical notes associated to the Encounter. Date/Time Encounter Note(s) Provider Source Dec 28, 2023 02:14 PM NONVA CONSULT: LOCAL TITLE: MD/OUTSIDE CONSULT REPORT SUMMARY STANDARD TITLE: NONVA CONSULT DATE OF NOTE: DEC 28, 2023@14:14 ENTRY DATE: DEC 28, 2023@14:14:31 AUTHOR: NITISH ASENCIO EXP COSIGNER: URGENCY: STATUS: COMPLETED 12-20-[address] Harden Oncology [facility] Chief complaint: Oncocytoma left kidney History of prostate cancer treated with radiation. History of right renal cell carcinoma treated surgically 2021. Plan: Observation and radiologic surveillance by urologist. Consider surgery in the future. Follow-up with oncology as needed. /ta/ Nitish Asencio MD Staff Physician Signed: 12/28/2023 14:15 NITISH ASENCIO [place] [facility] [facility]
--- OUTSIDE RECORDS SUMMARY | 2024-02-15 17:28 | XMS_ITS | Encounter Summary ---
Author Name [facility] [place] Address [address] [place] [address] Care Team Providers Care Scouring Machine Operator Name Role Phone ROSELYN PEREZ Primary [...] [facility], [facility] [id number] NOEMI BREEN ERT PATIENT MEDICARE (WNR) MEDICARE (M) PART B Feb 13, 2019 PART B [id number] [phone] NOEMI BREEN ERT PATIENT MEDICARE (WNR) MEDICARE (M) PART A Feb 13, 2019 PART A [id number] NOEMI BREEN ERT PATIENT MEDICARE (WNR) MEDICARE (M) PART A Feb 13, 2019 PART A [id number] NOEMI BREEN ERT PATIENT MEDICARE (WNR) MEDICARE (M) PART B Feb 13, 2019 PART B [id number] NOEMI BREEN ERT PATIENT MEDICARE (WNR) MEDICARE (M) PART A Feb 13, 2019 PART A [id number] [phone] NOEMI BREEN ERT PATIENT MEDICARE (WNR) MEDICARE (M) PART B Feb 13, 2019 PART B [id number] NOEMI BREEN ERT PATIENT FOR LIFE TFL* Feb 13, 2019 [id number] NOEMI BREEN ERT PATIENT FOR LIFE SUPPLEMEN SHAI TFL Feb 13, 2019 FOR LIFE [id number] 90 NOEMI BREEN ERT PATIENT -FO R-LIFE DIREC T CARE Oct 05, 2022 FOR LIFE [id number] 90 NOEMI BREEN ERT PATIENT Selected Encounter This section includes the information on record at [place] for the Encounter. Date/Time Encounter Type Encounter Description Reason Pro vider Source Dec 04, 2023 12:00 AM Outpatient Encounter EVENT (HISTORICAL) IHE Encounter Template Text not used by [place] Plan of Treatment: Future Appointments (+ 6 months) and Future Tests (+/- 45 days) The Plan of Treatment section includes future care activities for the patient from all [place] treatmentfacilities. This section includes future appointments and future orders which are active, pending or scheduled. Future Appointments This section includes appointments that were scheduled to occur 6 months from the date of the Encounter, up to a maximum of 20 appointments. The data comes from all [place] treatment facilities. Appointment Date/Time Appointment Type Appointme nt Facility Name Dec 20, 2023 02:30 PM AMBULATORY - MEDICINE [place] [facility] [place] [facility] Jan 01, 2024 02:00 PM AMBULATORY - MEDICINE [place] [facility] Mar 19, 2024 01:00 PM AMBULATORY - PSYCHIATRY [place] [facility] [place] [facility] Apr 24, 2024 01:30 PM AMBULATORY - NONE [place] [facility] [place] [facility] Apr 30, 2024 03:00 PM AMBULATORY - MEDICINE [facility] [facility] Active, Pending, and Scheduled Orders This section includes a listing of several types of active, pending, and scheduled orders, including clinic medications orders, diagnostic test orders, procedure orders and consult orders; where the start date of the order is 45 days before the date of the Encounter or 45 days after the date of theEncounter. The data comes from all [place] treatment facilities. Test Date/Time Test Type Test Details Facility Name Dec 31, 2023 08:22 PM Consult Order PSYCHIATRI C MEDICATION BHIP/NHM OUTPT Cons Salesperson Pets And Pet Supplies's Choice [place] [facility] [place] [facility] Social History: Smoking Status (Most current) and Tobacco Use (All prior to encounter date) This section includes the most current, and the historical, smoking and tobacco- related health factors from the [place] facility where the Encounter took place. Current Smoking Status This section includes the most current smoking, or tobacco-related health factor, from the [place] facility where the Encounter took place. Date/Time Current Smoking Status Comment Facil ity Sep 26, 2023 09:00 AM VA-TOBACCO QUIT 15 YRS OR MORE [facility] Tobacco Use History This section includes a history of the smoking, or tobacco-related health factors, that were collected on or before the date of the Encounter. The data comes from the [place] facility where the Encounter took place. Date/Time Smoking Status/Tobacco Use Comment F acility Sep 26, 2023 09:00 AM VA-TOBACCO QUIT 15 YRS OR MORE [place] [facility] [place] [facility] Oct 18, 2022 03:16 PM VA-TOBACCO FORMER USER [place] [facility] [place] [facility] Oct 18, 2022 03:16 PM VA-TOBACCO QUIT 15 YRS OR MORE [facility] [place] [facility] Nov 12, 2021 10:30 AM VA-TOBACCO FORMER USER [place] [facility] [place] [facility] Nov 12, 2021 10:30 AM VA-TOBACCO QUIT 5 TO < 15 YRS [place] [facility] [place] [facility] Oct 01, 2020 11:02 AM VA-TOBACCO FORMER USER [place] [facility] [place] [facility] Oct 01, 2020 11:02 AM VA-TOBACCO QUIT 15 YRS OR MORE [place] [facility] [place] [facility] Oct 25, 2019 11:30 AM VA-TOBACCO FORMER USER [place] [facility] [place] [facility] Oct 25, 2019 11:30 AM VA-TOBACCO QUIT 5 TO < 15 YRS [facility] [place] [facility] Sep 07, 2018 09:43 AM VA-TOBACCO FORMER USER [place] [facility] Sep 07, 2018 09:43 AM VA-TOBACCO QUIT 5 TO < 15 YRS [facility] [place] [facility] Apr 25, 2018 02:08 PM VA-TOBACCO USE DEC [facility] Encounter Notes: All associated encounter notes This section contains the clinical notes associated to the Encounter. Date/Time Encounter Note(s) Provider Source Dec 04, 2023 12:00 AM NONVA DIAGNOSTIC S ABDOULAYE REPORT: LOCAL TITLE: NON-VA DIAGNOSTICS STANDARD TITLE: NONVA DIAGNOSTIC STUDY REPORT DATE OF NOTE: DEC 04, 2023 ENTRY DATE: JAN 03, 2024@10:27:46 AUTHOR: GENE PERRY EXP COSIGNER: URGENCY: STATUS: COMPLETED VistA Imaging - Scanned Document SCANNED DOCUMENT SIGNATURE NOT REQUIRED Electronically Filed: 01/03/2024 by: GENE PERRY RESOURCE RECOVERY ENGINEER GENE PERRY [facility]
--- OUTSIDE RECORDS SUMMARY | 2024-02-15 17:28 | XMS_ITS | Encounter Summary ---
Author Name [facility] ([place]) Address [address] [place] [address] Care Team Providers Care Aluminum Shingle Roofer Name Role Phone ROSELYN PEREZ Primary Care [...] TRICA RE [facility]A [facility] [id number] NOEMI BREEN ERT PATIENT MEDICARE (WNR) MEDICARE (M) PART A Feb 13, 2019 PART A [id number] [phone] NOEMI BREEN ERT PATIENT MEDICARE (WNR) MEDICARE (M) PART B Feb 13, 2019 PART B [id number] NOEMI BREEN ERT PATIENT MEDICARE (WNR) MEDICARE (M) PART A Feb 13, 2019 PART A [id number] NOEMI BREEN ERT PATIENT MEDICARE (WNR) MEDICARE (M) PART B Feb 13, 2019 PART B [id number] [phone] NOEMI BREEN ERT PATIENT MEDICARE (WNR) MEDICARE (M) PART A Feb 13, 2019 PART A [id number] [phone] NOEMI BREEN ERT PATIENT MEDICARE (WNR) MEDICARE (M) PART B Feb 13, 2019 PART B [id number] [phone] NOEMI BREEN ERT PATIENT FOR LIFE TFL* Feb 13, 2019 [id number] [phone] NOEMI BREEN ERT PATIENT FOR LIFE SUPPLEMEN SHAI TFL Feb 13, 2019 FOR LIFE [id number] 90 NOEMI BREEN ERT PATIENT -FO R-LIFE DIREC T CARE Oct 05, 2022 FOR LIFE [id number] 90 NOEMI BREEN ERT PATIENT Selected Encounter This section includes the information on record at [place] for the Encounter. Date/Time Encounter Type Encounter Description Reason Pro vider Source Jan 10, 2024 09:48 PM Outpatient Encounter PRIMARY CARE/MEDICINE IHE Encounter Template Text not used by [place] Plan of Treatment: Future Appointments (+ 6 months) and Future Tests (+/- 45 days) The Plan of Treatment section includes future care activities for the patient from all [place] [facility]. This section includes future appointments and future orders which are active, pending or scheduled. Future Appointments This section includes appointments that were scheduled to occur 6 months from the date of the Encounter, up to a maximum of 20 appointments. The data comes from all [place] treatment [facility]. Appointment Date/Time Appointment Type Appointme nt Facility Name Mar 19, 2024 01:00 PM AMBULATORY - PSYCHIATRY [facility] Apr 24, 2024 01:30 PM [facility] [place] [facility] Apr 30, 2024 03:00 PM [facility] Active, Pending, and Scheduled Orders This section includes a listing of several types of active, pending, and scheduled orders, including clinic medications orders, diagnostic test orders, procedure orders and consult orders; where the start date of the order is 45 days before the date of the Encounter or 45 days after the date of theEncounter. The data comes from all [place] treatment facilities. Test Date/Time Test Type Test Details Facility Name Dec 31, 2023 08:22 PM Consult Order PSYCHIATRI C MEDICATION BHIP/NHM OUTPT Cons Restaurant Shift Supervisor's Choice [place] [facility] Social History: Smoking Status (Most current) and Tobacco Use (All prior to encounter date) This section includes the most current, and the historical, smoking and tobacco- related health factors from the [place] facility where the Encounter took place. Current Smoking Status This section includes the most current smoking, or tobacco-related health factor, from the [place] facility where the Encounter took place. Date/Time Current Smoking Status Comment Facil ity Sep 26, 2023 09:00 AM VA-TOBACCO QUIT 15 YRS OR MORE [facility] Tobacco Use History This section includes a history of the smoking, or tobacco-related health factors, that were collected on or before the date of the Encounter. The data comes from the [place] facility where the Encounter took place. Date/Time Smoking Status/Tobacco Use Comment F acility Sep 26, 2023 09:00 AM VA-TOBACCO QUIT 15 YRS OR MORE [place] [facility] [place] [facility] Oct 18, 2022 03:16 PM VA-TOBACCO FORMER USER [place] [facility] [place] [facility] Oct 18, 2022 03:16 PM VA-TOBACCO QUIT 15 YRS OR MORE [place] [facility] [place] [facility] Nov 12, 2021 10:30 AM VA-TOBACCO FORMER USER [place] [facility] [place] [facility] Nov 12, 2021 10:30 AM VA-TOBACCO QUIT 5 TO < 15 YRS [place] [facility] [place] [facility] Oct 01, 2020 11:02 AM VA-TOBACCO FORMER USER [place] [facility] [place] [facility] Oct 01, 2020 11:02 AM VA-TOBACCO QUIT 15 YRS OR MORE [place] [facility] [place] [facility] Oct 25, 2019 11:30 AM VA-TOBACCO FORMER USER [place] [facility] [place] [facility] Oct 25, 2019 11:30 AM VA-TOBACCO QUIT 5 TO < 15 YRS [place] [facility] [place] [facility] Sep 07, 2018 09:43 AM VA-TOBACCO FORMER USER [place] [facility] [place] [facility] Sep 07, 2018 09:43 AM VA-TOBACCO QUIT 5 TO < 15 YRS [facility] Apr 25, 2018 02:08 PM VA-TOBACCO USE DEC [facility]ED [facility] Encounter Notes: All associated encounter notes This section contains the clinical notes associated to the Encounter. Date/Time Encounter Note(s) Provider Source Jan 10, 2024 09:48 PM NONVA CONSULT: LOCAL TITLE: MD/OUTSIDE CONSULT REPORT SUMMARY STANDARD TITLE: NONVA CONSULT DATE OF NOTE: JAN 10, 2024@21:48 ENTRY DATE: JAN 10, 2024@21:48:52 AUTHOR: NITISH ASENCIO EXP COSIGNER: URGENCY: STATUS: COMPLETED 12-21-[address] [facility]rology Chief complaint: Follow-up benign oncocytoma left kidney Plan: Follow-up 6 months /ta/ Nitish Asencio MD Staff Physician Signed: 01/10/2024 21:49 [facility]ENCIO [facility]
--- OUTSIDE RECORDS SUMMARY | 2024-02-15 17:28 | XMS_ITS | Encounter Summary ---
Author Name [facility] Organization [facility] ([place]) Address [address] [place] [address] Care Team Providers Care Bandage Wrapping Machine Operator Name Role Phone ROSELYN PEREZ [...] TRICA RE DODA [facility]NR Oct 05, [facility] [id number] 90 NOEMI BREEN ERT PATIENT MEDICARE (WNR) MEDICARE (M) PART A Feb 13, 2019 PART A [id number] [phone] NOEMI BREEN ERT PATIENT MEDICARE (WNR) MEDICARE (M) PART B Feb 13, 2019 PART B [id number] NOEMI BREEN ERT PATIENT MEDICARE (WNR) MEDICARE (M) PART A Feb 13, 2019 PART A [id number] NOEMI BREEN ERT PATIENT MEDICARE (WNR) MEDICARE (M) PART B Feb 13, 2019 PART B [id number] NOEMI BREEN ERT PATIENT MEDICARE (WNR) MEDICARE (M) PART A Feb 13, 2019 PART A [id number] NOEMI BREEN ERT PATIENT MEDICARE (WNR) MEDICARE (M) PART B Feb 13, 2019 PART B [id number] NOEMI BREEN ERT PATIENT FOR LIFE TFL* Feb 13, 2019 [id number] NOEMI BREEN ERT PATIENT FOR LIFE SUPPLEMEN SHAI TFL Feb 13, 2019 FOR LIFE [id number] 90 NOEMI BREEN ERT PATIENT -FO R-LIFE DIREC T CARE Oct 05, 2022 FOR LIFE [id number] [phone] NOEMI BREEN ERT PATIENT Selected Encounter This section includes the information on record at [place] for the Encounter. Date/Time Encounter Type Encounter Description Reason Pro vider Source Dec 14, 2023 05:54 PM Outpatient Encounter PRIMARY CARE/MEDICINE IHE Encounter Template Text not used by [place] Plan of Treatment: Future Appointments (+ 6 months) and Future Tests (+/- 45 days) The Plan of Treatment section includes future care activities for the patient from all [place] treatmentfacilities. This section includes future appointments and future orders which are active, pending or scheduled. Future Appointments This section includes appointments that were scheduled to occur 6 months from the date of the Encounter, up to a maximum of 20 appointments. The data comes from all [place] treatment facilities. Appointment Date/Time Appointment Type Appointme nt Facility Name Dec 20, 2023 02:30 PM AMBULATORY - [place]ICINE [place] [facility] Jan 01, 2024 02:00 PM AMBULATORY - MEDICINE [place] [facility] Mar 19, 2024 01:00 PM AMBULATORY - PSYCHIATRY [place] [facility] Apr 24, 2024 01:30 PM AMBULATORY - NONE [place] [facility] Apr 30, 2024 03:00 PM AMBULATORY - MEDICINE [facility] [place] [facility] Active, Pending, and Scheduled Orders This section includes a listing of several types of active, pending, and scheduled orders, including clinic medications orders, diagnostic test orders, procedure orders and consult orders; where the start date of the order is 45 days before the date of the Encounter or 45 days after the date of theEncounter. The data comes from all [place] treatment facilities. Test Date/Time Test Type Test Details Facility Name Dec 31, 2023 08:22 PM Consult Order PSYCHIATRI C MEDICATION BHIP/NHM OUTPT Cons Slot Machine Repairer's Choice [place] [facility] Social History: Smoking Status (Most current) and Tobacco Use (All prior to encounter date) This section includes the most current, and the historical, smoking and tobacco- related health factors from the [place] facility where the Encounter took place. Current Smoking Status This section includes the most current smoking, or tobacco-related health factor, from the [place] facility where the Encounter took place. Date/Time Current Smoking Status Comment Facil ity Sep 26, 2023 09:00 AM [facility]TOBACCO [facility] Tobacco Use History This section includes a history of the smoking, or tobacco-related health factors, that were collected on or before the date of the Encounter. The data comes from the [place] facility where the Encounter took place. Date/Time Smoking Status/Tobacco Use Comment F acility Sep 26, 2023 09:00 AM VA-TOBACCO QUIT 15 YRS OR MORE [place] [facility] Oct 18, 2022 03:16 PM VA-TOBACCO FORMER USER [place] [facility] Oct 18, 2022 03:16 PM VA-TOBACCO QUIT 15 YRS OR MORE [place] [facility] Nov 12, 2021 10:30 AM VA-TOBACCO FORMER USER [place] [facility] Nov 12, 2021 10:30 AM VA-TOBACCO QUIT 5 TO < 15 YRS [place] [facility] Oct 01, 2020 11:02 AM VA-TOBACCO FORMER USER [place] [facility] Oct 01, 2020 11:02 AM VA-TOBACCO QUIT 15 YRS OR MORE [place] [facility] Oct 25, 2019 11:30 AM VA-TOBACCO FORMER USER [place] [facility] Oct 25, 2019 11:30 AM VA-TOBACCO QUIT 5 TO < 15 YRS [place] [facility] Sep 07, 2018 09:43 AM VA-TOBACCO FORMER USER [place] [facility] Sep 07, 2018 09:43 AM VA-TOBACCO QUIT 5 TO < 15 YRS [place] [facility] Apr 25, 2018 02:08 PM VA-TOBACCO USE DEC LINED TO ANSWER [place] [facility] Encounter Notes: All associated encounter notes This section contains the clinical notes associated to the Encounter. Date/Time Encounter Note(s) Provider Source Dec 14, 2023 05:54 PM NONVA CONSULT: LOCAL TITLE: MD/OUTSIDE CONSULT REPORT SUMMARY STANDARD TITLE: NONVA CONSULT DATE OF NOTE: DEC 14, 2023@17:54 ENTRY DATE: DEC 14, 2023@17:55:04 AUTHOR: NITISH ASENCIO EXP COSIGNER: URGENCY: STATUS: COMPLETED 12-05-23 Dr. Wenceslao Landaverde [facility] Urology Written pathology report Left kidney Oncocytoma /es/ Nitish Asencio MD Staff Physician Signed: 12/14/2023 17:55 NTIISH ASENCIO [place] [facility]
--- OUTSIDE RECORDS SUMMARY | 2024-02-15 17:28 | XMS_ITS | Encounter Summary ---
Author Name [facility] ([place]) Address [address] [place] [address] Care Team Providers Care Signal Mechanic Name Role Phone ROSELYN PEREZ Primary Care [...] TRICA RE DODA [facility]NR Oct 05, 20[facility] [id number] [facility] NOEMI BREEN ERT PATIENT MEDICARE (WNR) MEDICARE (M) PART A Feb 13, 2019 PART A [id number] [phone] NOEMI BREEN ERT PATIENT MEDICARE (WNR) MEDICARE (M) PART B Feb 13, 2019 PART B [id number] NOEMI BREEN ERT PATIENT MEDICARE (WNR) MEDICARE (M) PART A Feb 13, 2019 PART A [id number] NOEMI BREEN ERT PATIENT MEDICARE (WNR) MEDICARE (M) PART B Feb 13, 2019 PART B [id number] NOEMI BREEN ERT PATIENT MEDICARE (WNR) MEDICARE (M) PART A Feb 13, 2019 PART A [id number] NOEMI BREEN ERT PATIENT MEDICARE (WNR) MEDICARE (M) PART B Feb 13, 2019 PART B [id number] [phone] NOEMI BREEN ERT PATIENT FOR LIFE TFL* Feb 13, 2019 [id number] NOEMI BREEN ERT PATIENT FOR LIFE SUPPLEMEN SHAI TFL Feb 13, 2019 FOR LIFE [id number] 90 NOEMI BREEN ERT PATIENT -FO R-LIFE DIREC T CARE Oct 05, 2022 FOR LIFE [id number] 90 NOEMI BREEN ERT PATIENT Selected Encounter This section includes the information on record at [place] for the Encounter. Date/Time Encounter Type Encounter Description Reason Pro vider Source Dec 16, 2023 04:45 PM Outpatient Encounter PRIMARY CARE/MEDICINE IHE Encounter [...] 20, 2023 02:30 PM AMBULATORY - MEDICINE [place] [facility] Jan 01, 2024 02:00 PM AMBULATORY - MEDICINE [place] C [place] [facility] Mar 19, 2024 01:00 PM AMBULATORY - PSYCHIATRY [place] [facility] [place] [facility] Apr 24, 2024 01:30 PM AMBULATORY - NONE [place] [facility] [place] [facility] Apr 30, 2024 03:00 PM AMBULATORY - MEDICINE [facility]L [place] [facility] Active, Pending, and Scheduled Orders This section includes a listing of several types of active, pending, and scheduled orders, including clinic medications orders, diagnostic test orders, procedure orders and consult orders; where the start date of the order is 45 days before the date of the Encounter or 45 days after the date of theEncounter. The data comes from all [place] treatment facilities. Test Date/Time Test Type Test Details Facility Name Dec 31, 2023 08:22 PM Consult Order PSYCHIATRI C MEDICATION BHIP/NHM OUTPT Cons Customer Advisor's Choice [place] [facility] [place] [facility] Social History: Smoking Status (Most current) [...] AM VA-TOBACCO QUIT 15 YRS OR MORE [facility] Tobacco Use History This section includes a history of the smoking, or tobacco-related health factors, that were collected on or before the date of the Encounter. The data comes from the [place] facility where the Encounter took place. Date/Time Smoking Status/Tobacco Use Comment F acility Sep 26, 2023 09:00 AM VA-TOBACCO QUIT 15 YRS OR MORE [place] [facility] [place] [facility] Oct 18, 2022 03:16 PM VA-TOBACCO FORMER USER [place] [facility] [place] [facility] Oct 18, 2022 03:16 PM VA-TOBACCO QUIT 15 YRS OR MORE [place] [facility] [place] [facility] Nov 12, 2021 10:30 AM VA-TOBACCO FORMER USER [place] [facility] [place] [facility] Nov 12, 2021 10:30 AM VA-TOBACCO QUIT 5 TO < 15 YRS [place] [facility] [place] [facility] Oct 01, 2020 11:02 AM VA-TOBACCO FORMER USER [place] [facility] [place] [facility] Oct 01, 2020 11:02 AM VA-TOBACCO QUIT 15 YRS OR MORE [place] [facility] [place] [facility] Oct 25, 2019 11:30 AM VA-TOBACCO FORMER USER [place] [facility] [place] [facility] Oct 25, 2019 11:30 AM VA-TOBACCO QUIT 5 TO < 15 YRS [place] [facility] [place] [facility] Sep 07, 2018 09:43 AM VA-TOBACCO FORMER USER [place] [facility] [place] [facility] Sep 07, 2018 09:43 AM VA-TOBACCO QUIT 5 TO < 15 YRS [place] [facility] [place] [facility] Apr 25, 2018 02:08 PM VA-TOBACCO USE DEC LINED TO ANSWER [place] [facility] Encounter Notes: All associated encounter notes This section contains the clinical notes associated to the Encounter. Date/Time Encounter Note(s) Provider Source Dec 16, 2023 04:47 PM PHYSICIAN NOTE: LOCAL TITLE: MD NOTE STANDARD TITLE: PHYSICIAN NOTE DATE OF NOTE: DEC 16, 2023@16:47 ENTRY DATE: DEC 16, 2023@16:47:24 AUTHOR: NITISH ASENCIO EXP COSIGNER: URGENCY: STATUS: COMPLETED Per request, renewed consult nephrology for renal insufficiency. /ta/ Nitish Asencio MD Staff Physician Signed: 12/16/2023 16:47 NITISH ASENCIO [place] [facility]
--- OUTSIDE RECORDS SUMMARY | 2024-02-15 17:28 | XMS_ITS | Encounter Summary ---
Author Name [facility] Organization [facility] ([place]) Address [address] [place] [address] Care Team Providers Care Edge Stripper Name Role Phone ROSELYN PEREZ Primary [...] TRICA [id number] NOEMI BREEN ERT PATIENT MEDICARE (WNR) MEDICARE (M) PART B Feb 13, 2019 PART B [id number] [phone] [id number] NOEMI BREEN ERT PATIENT MEDICARE (WNR) MEDICARE (M) PART A Feb 13, 2019 PART A [id number] NOEMI BREEN ERT PATIENT MEDICARE (WNR) MEDICARE (M) PART A Feb 13, 2019 PART A [id number] NOEMI BREEN ERT PATIENT MEDICARE (WNR) MEDICARE (M) PART B Feb 13, 2019 PART B [id number] NOEMI BREEN ERT PATIENT MEDICARE (WNR) MEDICARE (M) PART A Feb 13, 2019 PART A [id number] NOEMI BREEN ERT PATIENT MEDICARE (WNR) MEDICARE (M) PART B Feb 13, 2019 PART B [id number] NOEMI BREEN ERT PATIENT FOR LIFE TFL* Feb 13, 2019 [id number] 90 NOEMI BREEN ERT PATIENT FOR LIFE SUPPLEMEN SHAI TFL Feb 13, 2019 [facility] LIFE [id number] 90 NOEMI BREEN ERT PATIENT -FO R-LIFE DIREC T CARE Oct 05, 2022 FOR LIFE [id number] 90 NOEMI BREEN ERT PATIENT Selected Encounter This section includes the information on record at [place] for the Encounter. Date/Time Encounter Type Encounter Description Reason Pro vider Source Dec 28, 2023 12:55 PM Outpatient Encounter PRIMARY CARE/MEDICINE IHE Encounter [...] 01, 2024 02:00 PM AMBUL[facility] - [facility] [place] [facility] Mar 19, 2024 01:00 PM [facility] Apr 24, 2024 01:30 PM [facility] [place] [facility] Apr 30, 2024 03:00 PM AMBULATORY - MEDICINE [facility] Active, Pending, and Scheduled Orders This section includes a listing of several types of active, pending, and scheduled orders, including clinic medications orders, diagnostic test orders, procedure orders and consult orders; where the start date of the order is 45 days before the date of the Encounter or 45 days after the date of theEncounter. The data comes from all [place] treatment facilities. Test Date/Time Test Type Test Details Facility Name Dec 31, 2023 08:22 PM Consult Order PSYCHIATRI C MEDICATION BHIP/NHM OUTPT Cons Respiratory Equipment Assistant's Choice [place] [facility] [place] [facility] Social History: Smoking Status (Most current) [...] 15 YRS OR MORE [facility] Tobacco Use History This section includes a history of the smoking, or tobacco-related health factors, that were collected on or before the date of the Encounter. The data comes from the [place] facility where the Encounter took place. Date/Time Smoking Status/Tobacco Use Comment F acility Sep 26, 2023 09:00 AM VA-TOBACCO QUIT 15 YRS OR MORE [place] [facility] [place] [facility] Oct 18, 2022 03:16 PM VA-TOBACCO FORMER USER [facility] [place] [facility] Oct 18, 2022 03:16 PM VA-TOBACCO QUIT 15 YRS OR MORE [facility] [place] [facility] Nov 12, 2021 10:30 AM VA-TOBACCO FORMER USER [facility] [place] [facility] Nov 12, 2021 10:30 AM VA-TOBACCO QUIT 5 TO < 15 YRS [facility] [place] [facility] Oct 01, 2020 11:02 AM VA-TOBACCO FORMER USER [facility] [place] [facility] Oct 01, 2020 11:02 AM VA-TOBACCO QUIT 15 YRS OR MORE [facility] [place] [facility] Oct 25, 2019 11:30 AM VA-TOBACCO FORMER USER [facility] [place] [facility] Oct 25, 2019 11:30 AM VA-TOBACCO QUIT 5 TO < 15 YRS [facility] [place] [facility] Sep 07, 2018 09:43 AM VA-TOBACCO FORMER USER [place] [facility] [place] [facility] Sep 07, 2018 09:43 AM VA-TOBACCO QUIT 5 TO < 15 YRS [place] [facility] [place] [facility] Apr 25, 2018 02:08 PM VA-TOBACCO USE DEC LINED TO ANSWER [place] [facility] [place] [facility] Encounter Notes: All associated encounter notes This section contains the clinical notes associated to the Encounter. Date/Time Encounter Note(s) Provider Source Dec 28, 2023 12:55 PM ADMINISTRATIVE NOTE: LOCAL TITLE: ADMINISTRATIVE NOTE STANDARD TITLE: ADMINISTRATIVE NOTE DATE OF NOTE: DEC 28, 2023@12:55 ENTRY DATE: DEC 28, 2023@12:55:42 AUTHOR: SILVIA EMERSON EXP COSIGNER: URGENCY: STATUS: COMPLETED Reminder call for your upcoming Primary Care Appointment and the need for preparations prior to your upcoming appt. [X] Location in [address] [ ] Fasting labs [ ] Lab work within 30 days [ ] Urine [ ] No Preparation Action taken: [ ] Called , left voice message [ ] Called , unable to leave voice mail [X] Spoke to /ocular care aide to remind them of upcoming appt/preparations Upcoming Appointments: 01/01/2024 14:00 CWM/NO/PACT 2 02/01/2024 10:30 CWM/NO/MHC/MOSHE /ta/ SILVIA EMERSON AMSA Signed: 12/28/2023 12:55 SILVIA EMERSON [place] [facility]
--- OUTSIDE RECORDS SUMMARY | 2024-02-15 17:28 | XMS_ITS | Encounter Summary ---
Author Name [facility] Address [address] [place] [address] Care Team Providers Care Automated Logistics Specialist Name Role Phone ROSELYN PEREZ Primary [...] [id number] NOEMI BREEN ERT PATIENT MEDICARE (WNR) MEDICARE (M) PART A Feb 13, 2019 PART A [id number] NOEMI BREEN ERT PATIENT MEDICARE (WNR) MEDICARE (M) PART B Feb 13, 2019 PART B [id number] NOEMI BREEN ERT PATIENT MEDICARE (WNR) MEDICARE (M) PART A Feb 13, 2019 PART A [id number] NOEMI BREEN ERT PATIENT MEDICARE (WNR) MEDICARE (M) PART B Feb 13, 2019 PART B [id number] NOEMI BREEN ERT PATIENT MEDICARE (WNR) MEDICARE (M) PART A Feb 13, 2019 PART A [id number] NOEMI BREEN ERT PATIENT MEDICARE (WNR) MEDICARE (M) PART B Feb 13, 2019 PART B [id number] NOEMI BREEN ERT PATIENT FOR LIFE TFL* Feb 13, 2019 [id number] NOEMI BREEN ERT PATIENT FOR LIFE SUPPLEMEN SHAI TFL Feb 13, 2019 FOR LIFE [id number] 90 NOEMI BREEN ERT PATIENT -FO R-LIFE DIREC T CARE Oct 05, 2022 [facility] [id number] [phone] NOEMI BREEN ERT PATIENT Selected Encounter This section includes the information on record at [place] for the Encounter. Date/Time Encounter Type Encounter Description Reason Pro vider Source Dec 05, 2023 12:00 AM Outpatient Encounter EVENT (HISTORICAL) IHE Encounter Template Text not used by [place] Plan of Treatment: Future Appointments (+ 6 [...] 20, 2023 02:30 PM AMBULATORY - MEDICINE [place] [facility] [place] [facility] Jan 01, 2024 02:00 PM AMBULATORY - MEDICINE [place] [facility] [place] [facility] Mar 19, 2024 01:00 PM AMBULATORY - PSYCHIATRY [place] [facility] [place] [facility] Apr 24, 2024 01:30 PM AMBULATORY - NONE [place] [facility] [place] [facility] Apr 30, 2024 03:00 PM AMBULATORY - MEDICINE [facility] [place] [facility] Active, Pending, and Scheduled Orders [...] Order PSYCHIATRI C MEDICATION BHIP/NHM OUTPT Cons Director Of Marketing Analytics's Choice [place] [facility] [place] [facility] Social History: Smoking Status (Most [...] 26, 2023 09:00 AM VA-TOBACCO [facility] Tobacco Use History This section includes a history of the smoking, or tobacco-related health factors, that were collected on or before the date of the Encounter. The data comes from the [place] facility where the Encounter took place. Date/Time Smoking Status/Tobacco Use Comment F acility Sep 26, 2023 09:00 AM VA-TOBACCO QUIT 15 YRS OR MORE [place] [facility] [place] [facility] Oct 18, 2022 03:16 PM VA-TOBACCO FORMER USER [place] [facility] [place] [facility] Oct 18, 2022 03:16 PM VA-TOBACCO QUIT 15 YRS OR MORE [place] [facility] [place] [facility] Nov 12, 2021 10:30 AM VA-TOBACCO FORMER USER [place] [facility] [facility] Nov 12, 2021 10:30 AM VA-TOBACCO QUIT 5 TO < 15 YRS [place] [facility] [place] [facility] Oct 01, 2020 11:02 AM VA-TOBACCO FORMER USER [place] [facility] [facility] Oct 01, 2020 11:02 AM VA-TOBACCO QUIT 15 YRS OR MORE [place] [facility] [facility] Oct 25, 2019 11:30 AM VA-TOBACCO FORMER USER [place] [facility] [facility] Oct 25, 2019 11:30 AM VA-TOBACCO QUIT 5 TO < 15 YRS [place] [facility] [facility] Sep 07, 2018 09:43 AM VA-TOBACCO FORMER USER [place] [facility] [facility] Sep 07, 2018 09:43 AM VA-TOBACCO QUIT 5 TO < 15 YRS [place] [facility] [facility] Apr 25, 2018 02:08 PM VA-TOBACCO USE DEC LINED TO ANSWER [facility] Encounter Notes: All associated encounter notes This section contains the clinical notes associated to the Encounter. Date/Time Encounter Note(s) Provider Source Dec 05, 2023 12:00 AM NONVA DIAGNOSTIC S TUDY REPORT: LOCAL TITLE: NON-VA DIAGNOSTICS STANDARD TITLE: NONVA DIAGNOSTIC STUDY REPORT DATE OF NOTE: DEC 05, 2023 ENTRY DATE: JAN 03, 2024@10:24:06 AUTHOR: GENE PERRY EXP COSIGNER: URGENCY: STATUS: COMPLETED VistA Imaging - Scanned Document SCANNED DOCUMENT SIGNATURE NOT REQUIRED Electronically Filed: 01/03/2024 by: GENE PERRY REIKI PRACTITIONER GENE PERRY [facility] Dec 05, 2023 12:00 AM NONVA DIAGNOSTIC S TUDY REPORT: LOCAL TITLE: NON-VA DIAGNOSTICS STANDARD TITLE: NONVA DIAGNOSTIC STUDY REPORT DATE OF NOTE: DEC 05, 2023 ENTRY DATE: JAN 10, 2024@10:29:02 AUTHOR: STEFANI WARE EXP COSIGNER: URGENCY: STATUS: COMPLETED VistA Imaging - Scanned Document SCANNED DOCUMENT SIGNATURE NOT REQUIRED Electronically Filed: 01/10/2024 by: STEFANI MARTINEZ [facility] Dec 05, 2023 12:00 AM NONVA NOTE: LOCAL TITLE: NON-VA OUTPATIENT NOTES STANDARD TITLE: NONVA NOTE DATE OF NOTE: DEC 05, 2023 ENTRY DATE: JAN 10, 2024@10:32:08 AUTHOR: STEFANI WARE EXP COSIGNER: URGENCY: STATUS: COMPLETED VistA Imaging - Scanned Document SCANNED DOCUMENT SIGNATURE NOT REQUIRED Electronically Filed: 01/10/2024 by: STEFANI MARTINEZ [facility]
--- OUTSIDE RECORDS SUMMARY | 2024-02-15 17:28 | XMS_ITS | Encounter Summary ---
Author Name [facility] [place] [facility] [place] Address [address] [place] [address] Care Team Providers Care Shift Production Associate Name Role Phone ROSELYN PEREZ Primary Care [...] TRICA RE DODA WNR Oct 05, 2022 [facility] [id number] NOEMI BREEN ERT PATIENT MEDICARE (WNR) MEDICARE (M) PART B Feb 13, 2019 PART B [id number] HUNTERNOEMI SMALLWOOD ERT PATIENT MEDICARE (WNR) MEDICARE (M) PART A Feb 13, 2019 PART A [id number] NOEMI BREEN ERT PATIENT MEDICARE (WNR) MEDICARE (M) PART A Feb 13, 2019 PART A [id number] ONEMI BREEN ERT PATIENT MEDICARE (WNR) MEDICARE (M) PART B Feb 13, 2019 PART B [id number] NOEMI BREEN ERT PATIENT MEDICARE (WNR) MEDICARE (M) PART A Feb 13, 2019 PART A [id number] [phone] NOEMI BREEN ERT PATIENT MEDICARE (WNR) MEDICARE (M) PART B Feb 13, 2019 PART B [id number] NOEMI BREEN ERT PATIENT FOR LIFE TFL* Feb 13, 2019 [id number] NOEMI BREEN ERT PATIENT FOR LIFE SUPPLEMEN SHAI TFL Feb 13, 2019 [facility] [id number] 90 NOEMI BREEN ERT PATIENT -FO R-LIFE DIREC T CARE Oct 05, 2022 [facility] [id number] 90 NOEMI BREEN ERT PATIENT Selected Encounter This section includes the information on record at [place] for the Encounter. Date/Time Encounter Type Encounter Description Reason Pro vider Source Jan 10, 2024 08:04 AM Outpatient Encounter ADMIN PAT ACTIVTIES (MASNONCT) [...] 2024 01:00 PM AMBULATORY - PSYCHIATRY [place] [facility] [place] [place] [facility] Apr 24, 2024 01:30 PM AMBULATORY - NONE [place] [facility] [facility] Apr 30, 2024 03:00 PM AMBULATORY - [facility] Active, Pending, and Scheduled Orders This section [...] Order PSYCHIATRI C MEDICATION BHIP/NHM OUTPT Cons Project Management Professional's Choice [place] [facility] [facility] Social History: Smoking Status (Most current) and [...] VA-TOBACCO QUIT 15 YRS OR MORE [place] [facility] Tobacco Use History This section includes a history of the smoking, or tobacco-related health factors, that were collected on or before the date of the Encounter. The data comes from the [place] facility where the Encounter took place. Date/Time Smoking Status/Tobacco Use Comment F acility Sep 26, 2023 09:00 AM VA-TOBACCO QUIT 15 YRS OR MORE [place] [facility] [place] [facility] Oct 18, 2022 03:16 PM VA-TOBACCO FORMER USER [place] [facility] [place] [facility] Oct 18, 2022 03:16 PM VA-TOBACCO QUIT 15 YRS OR MORE [place] [facility] [place] [facility] Nov 12, 2021 10:30 AM VA-TOBACCO FORMER USER [facility] [place] [facility] Nov 12, 2021 10:30 AM VA-TOBACCO QUIT 5 TO < 15 YRS [facility] [place] [facility] Oct 01, 2020 11:02 AM VA-TOBACCO FORMER USER [place] [facility] [place] [facility] Oct 01, 2020 11:02 AM VA-TOBACCO QUIT 15 YRS OR MORE [facility] [facility] Oct 25, 2019 11:30 AM VA-TOBACCO FORMER USER [facility] [place] [facility] Oct 25, 2019 11:30 AM VA-TOBACCO QUIT 5 TO < 15 YRS [place] [facility] [place] [facility] Sep 07, 2018 09:43 AM VA-TOBACCO FORMER USER [place] [facility] [place] [facility] Sep 07, 2018 09:43 AM VA-TOBACCO QUIT 5 TO < 15 YRS [facility] Apr 25, 2018 02:08 PM VA-TOBACCO USE DEC LINED [facility] Encounter Notes: All associated encounter notes This section contains the clinical notes associated to the Encounter. Date/Time Encounter Note(s) Provider Source Jan 10, 2024 08:04 AM ADMINISTRATIVE NOT E: LOCAL TITLE: CCC: SCHEDULING ADMINISTRATION STANDARD TITLE: ADMINISTRATIVE NOTE DATE OF NOTE: JAN 10, 2024@08:04:53 ENTRY DATE: JAN 10, 2024@08:04:53 AUTHOR: TEE MURO EXP COSIGNER: URGENCY: STATUS: COMPLETED CCC: SCHEDULING ADMINISTRATION Has ADDENDA Patient Demographics Patient Name: NAINA BREEN Patient Primary Phone: [phone] Patient Primary Address: [address] [place] [id number] Patient : 1955 Patient Age: 68 Caller/Recipient Relation to Patient: Self Caller Name: NAINA BREEN Administrative Administrative Note Reason: Medication Renewal [place] Medications Refill/Renewal Request: Please renew and mail: ATORVASTATIN CALCIUM 80MG TAB IMPORTANT: This note was created by [facility] staff. Please do not alert the staff member by adding them as a signer for future communications. Alerts are not monitored by this user. /jenny MURO Sausage Maker Signed: 01/10/2024 08:04 Receipt Acknowledged By: 01/10/2024 08:13 /ta/ PHIL COLLIER, MSN, RN, CNL PRIMARY CARE TEAM NURSE for VIVIANE FARIAS 01/10/2024 16:38 /ta/ Nitish Schuster MD Staff Physician 01/10/2024 ADDENDUM STATUS: COMPLETED Done. /ta/ Nitish Schuster MD Staff Physician Signed: 01/10/2024 16:38 TEE MURO [facility]
--- OUTSIDE RECORDS SUMMARY | 2024-02-15 17:28 | XMS_ITS | Encounter Summary ---
Author Name [facility] [place] [facility] [place] Address [address] [place] [address] Care Team Providers Care Case Checker Name Role Phone ROSELYN PEREZ Primary Care [...] TRICA [id number] NOEMI BREEN ERT PATIENT MEDICARE (WNR) MEDICARE (M) PART A Feb 13, 2019 PART A [id number] NOEMI BREEN ERT PATIENT MEDICARE (WNR) MEDICARE (M) PART B Feb 13, 2019 PART B [id number] NOEMI BREEN ERT PATIENT MEDICARE (WNR) MEDICARE (M) PART A Feb 13, 2019 PART A [id number] NOEMI BREEN ERT PATIENT MEDICARE (WNR) MEDICARE (M) PART B Feb 13, 2019 PART B [id number] NOEMI BREEN ERT PATIENT MEDICARE (WNR) MEDICARE (M) PART A Feb 13, 2019 PART A [id number] NOEMI BREEN ERT PATIENT MEDICARE (WNR) MEDICARE (M) PART B Feb 13, 2019 PART B [id number] NOEMI BREEN ERT PATIENT FOR LIFE TFL* Feb 13, 2019 [id number] NOEMI BREEN ERT PATIENT FOR LIFE SUPPLEMEN SHAI TFL Feb 13, 2019 [facility] LIFE [id number] NOEMI BREEN ERT PATIENT -FO R-LIFE DIREC T CARE Oct 05, 2022 [facility] LIFE [id number] 90 NOEMI BREEN ERT PATIENT Selected Encounter This section includes the information on record at [place] for the Encounter. Date/Time Encounter Type Encounter Description Reason Pro vider Source Oct 31, 2023 12:00 PM Outpatient Encounter COMMUNITY CARE CONSULT IHE Encounter Template Text not used by [place] Plan of Treatment: Future Appointments (+ 6 months) and Future Tests (+/- 45 days) The Plan of Treatment section includes future care activities for the patient [facility] all [place] [facility]. This section includes future appointments and future [...] AMBULATORY - PSYCHIATRY [place] [facility] [place] [facility] Nov 09, 2023 11:20 AM AMBULATORY - MEDICINE [place] C [facility] [facility] Nov 23, 2023 03:30 PM AMBULATORY - MEDICINE [place] C [facility] [facility] Dec 20, 2023 02:30 PM AMBULATORY - MEDICINE [place] C [facility] [facility] Jan 01, 2024 02:00 PM AMBULATORY - MEDICINE [place] C [facility] [place] [facility] Mar 19, 2024 01:00 PM AMBULATORY - PSYCHIATRY [place] [facility] [place] [facility] Apr 24, 2024 01:30 PM AMBULATORY - NONE [facility] Lab Results: +/- 30 days of [...] Range Comment Oct 02, 2023 08:57 AM [facility] VITAMIN B-1 (THIAMINE)-(QU) Specimen Type: PLASMA Comment: Vitamin supplementation within 24 hours prior to blood draw may affect the accuracy of the results. This test was developed and its analytical performance characteristics have been determined by [employer] [place], [place]. It has not been cleared or approved by the U.S. Food and Drug Administration. This assay has been validated pursuant to the CLIA regulations and is used for clinical purposes. Test Performed by [facility], [employer] [facility], [address] [place] [address] Angus Mendez M.D., Ph.D., Director of Laboratories , CLIA [id number] TEST PERFORMED AT: , Ordering Provider: ISABELA ASENCIO Report Released Date/Time: Sep 16, 2023 06:52 PM Reporting Lab: [address] [address] Performing Lab: [facility] [address] [address] VITAMIN B-1 (THIAMINE)-(Q U) 22 nmol/L 8-Oct 02, 2023 08:57 AM [facility] FOLATE (WROX) Specimen Type: SERUM No comment entered. Ordering Provider: ISABELA ASENCIO Report Released Date/Time: Sep 16, 2023 06:52 PM Reporting Lab: [facility] [address] [facility] [address] Performing Lab: [facility] [address] [facility] [address] FOLATE (WROX) 9.92 ng/mL >5.2 Oct 02, 2023 08:57 AM [facility] BASIC METABOLIC PANEL (fasting) Specimen Type: SERUM No comment entered. Ordering Provider: ISABELA ASENCIO Report Released Date/Time: Sep 16, 2023 06:52 PM Reporting Lab: [address] [address] Performing Lab: [address] [address] UREA NITROGEN 24 mg/dL 7-25 GLUCOSE 99 mg/dL 65-100 SODIUM 137 mmol/L 135-145 POTASSIUM 4.4 mmol/L 3.5-5.0 CHLORIDE 104 mmol/L 100-110 CO2 22 meq/L 20-30 CREATININE, Serum 1.99 mg/dL H 0.50-1.40 eGFR(CKD-EPI 2020) 36 mL/min L >60 Oct 02, 2023 08:57 AM [facility] LIVER FUNCTION Specimen Type: SERUM No comment entered. Ordering Provider: ISABELA ASENCIO Report Released Date/Time: Sep 16, 2023 06:52 PM Reporting Lab: [address] [address] Performing Lab: [address] [address] PROTEIN,TOTAL 6.9 g/dL 6.0-8.3 ALBUMIN 4.0 g/dL 3.5-5.0 ALKALINE PHOSPHATASE 86 U/L 40-150 AST 13 U/L 5-34 ALT 21 U/L BILIRUBIN, TOTAL 0.8 mg/dL 0.2-1.2 Oct 02, 2023 08:57 AM [facility] LIPID PANEL FASTING Specimen Type: SERUM No comment entered. Ordering Provider: ISABELA ASENCIO Report Released Date/Time: Sep 16, 2023 06:52 PM Reporting Lab: [address] [address] Performing Lab: [address] [address] CHOLESTEROL 185 mg/dL TRIGLYCERIDE 272 mg/dL H 0-150 LDL calculated 96 mg/dL 0-129 CHOL/HDL 5.3 HDL CHOLESTEROL 35 mg/dL L 40-60 Oct 02, 2023 08:57 AM [facility] TSH Specimen Type: SERUM No comment entered. Ordering Provider: ISABELA ASENCIO Report Released Date/Time: Sep 16, 2023 06:52 PM Reporting Lab: [address] [address] Performing Lab: [address] [address] TSH 0.78 u[IU]/mL 0.35-5.00 Oct 02, 2023 08:57 AM [facility] PSA Specimen Type: SERUM No comment entered. Ordering Provider: ISABELA ASENCIO Report Released Date/Time: Sep 16, 2023 06:52 PM Reporting Lab: [address] [address] Performing Lab: [address] [address] PSA 0.53 ng/mL 0.00-4.00 Oct 02, 2023 08:57 AM [facility] CBC AND DIFF (AUTO) Specimen Type: BLOOD No comment entered. Ordering Provider: ISABELA ASENCIO Report Released Date/Time: Sep 16, 2023 06:52 PM Reporting Lab: [address] [address] Performing Lab: [address] [address] WBC 6.61 10*3/uL 4.50-11.00 RBC 4.42 10*6/uL [...] 10*3/uL 0.00-0.00 Oct 02, 2023 08:57 AM [facility] CALCIUM Specimen Type: SERUM No comment entered. Ordering Provider: ISABELA ASENCIO Report Released Date/Time: Sep 16, 2023 06:52 PM Reporting Lab: [address] [address] Performing Lab: [address] [address] CALCIUM 9.1 mg/dL 8.5-10.2 Oct 02, 2023 08:57 AM [facility] VITAMIN B12 Specimen Type: SERUM No comment entered. Ordering Provider: ISABELA ASENCIO Report Released Date/Time: Sep 16, 2023 06:52 PM Reporting Lab: [address] [address] Performing Lab: [address] [address] VITAMIN B12 1105 pg/mL H 200-900 Oct 02, 2023 08:57 AM [facility] URINALYSIS CLEAN CATCH Specimen Type: URINE Comment: If Glucose = >500 and Ketones are positive, please alert the Physician. Ordering Provider: ISABELA ASENCIO Report Released Date/Time: Sep 16, 2023 06:52 PM Reporting Lab: [address] [address] Performing Lab: [address] [address] UA COLOR Light-Yellow Yellow UA APPEARANCE Clear Clear UA GLUCOSE Normal mg/dL Negative UA KETONES NEGATIVE mg/dL Negative UA BLOOD NEGATIVE mg/dL Negative UA PROTEIN 70 mg/dL Negative UA NITRITE NEGATIVE mg/dL Negative UA BILIRUBIN NEGATIVE mg/dL Negative UA SPECIFIC GRAVITY 1.020 1.016-1.02 2 UA pH 6.0 5.0-9.0 UA UROBILINOGEN Normal mg/dL <2.0 UA LEUKOCYTE NEGATIVE Negative Oct 02, 2023 08:57 AM [facility] MICROSCOPIC AUTOMATED, URINE Specimen Type: URINE Comment: If Glucose = >500 and Ketones are positive, please alert the Physician. Ordering Provider: ISABELA ASENCIO Report Released Date/Time: Sep 16, 2023 06:52 PM Reporting Lab: [address] [address] Performing Lab: [address] [address] UA WBC 0-5 /[HPF] 0-5 UA MUCUS [...] 26, 2023 09:00 AM [place]-TOBACCO FORMER USER [facility] Tobacco Use History This section includes a history of the smoking, or tobacco-related health factors, that were collected on or before the date of the Encounter. The data comes from the [place] facility where the Encounter took place. Date/Time Smoking Status/Tobacco Use Comment F acemory Sep 26, 2023 09:00 AM VA-TOBACCO QUIT 15 YRS OR MORE [place] [facility] [place] [facility] Oct 18, 2022 03:16 PM VA-TOBACCO FORMER USER [place] [facility] [place] [facility] Oct 18, 2022 03:16 PM VA-TOBACCO QUIT 15 YRS OR MORE [place] [facility] [place] [facility] Nov 12, 2021 10:30 AM VA-TOBACCO FORMER USER [place] [facility] [place] [facility] Nov 12, 2021 10:30 AM VA-TOBACCO QUIT 5 TO < 15 YRS [place] [facility] [place] [facility] Oct 01, 2020 11:02 AM VA-TOBACCO FORMER USER [place] [facility] [facility] Oct 01, 2020 11:02 AM VA-TOBACCO QUIT 15 YRS OR MORE [place] [facility] [place] [facility] Oct 25, 2019 11:30 AM VA-TOBACCO FORMER USER [place] [facility] [place] [facility] Oct 25, 2019 11:30 AM VA-TOBACCO QUIT 5 TO < 15 YRS [place] [facility] [place] [facility] Sep 07, 2018 09:43 AM VA-TOBACCO FORMER USER [place] [facility] [place] [facility] Sep 07, 2018 09:43 AM VA-TOBACCO QUIT 5 TO < 15 YRS [place] [facility] [place] [facility] Apr 25, 2018 02:08 PM VA-TOBACCO USE DEC LINED TO ANSWER [place] [facility] [place] [facility] Radiology Reports: +/- 30 [...] CT PULMONARY NODULES W/O CONTRAST: NAINA BREEN [id number] -1955 M Exm Date: OCT 25, 2023@09:53 Req Phys: ISABELA ASENCIO Pat Loc: CWM/NO/PACT 2 (Req'g Loc) Img Loc: NHM/CT Service: Unknown [place] [facility] [place] [place] [address] (Case [id number] COMPLETE) CT THORAX W/O CONT (CT Detailed) CPT:00235 Reason for Study: look for cancer Clinical History: Report Status: Verified Date Reported: OCT 25, 2023 Date Verified: OCT 25, 2023 Neonatal Specialist E-Sig:/ES/RONNIE COLMENARES JR Report: Study: Noncontrast CT [...] Primary Interpreting Staff: RONNIE COLMENARES JR, Radiologist (Neonatal Specialist) /RONNIE WOLFE JR [facility] Encounter Notes: All associated encounter notes This section contains the clinical notes associated to the Encounter. Date/Time Encounter Note(s) Provider Source Oct 31, 2023 12:00 PM NONVA CONSULT: LOCAL TITLE: COMMUNITY CARE-CONSULT RESULT NOTE STANDARD TITLE: NONVA CONSULT DATE OF NOTE: OCT 31, 2023@12:00 ENTRY DATE: NOV 21, 2023@12:22:41 AUTHOR: HUNTER CHAVARRIA COSIGNER: URGENCY: STATUS: COMPLETED VistA Imaging - Scanned Document SCANNED DOCUMENT SIGNATURE NOT REQUIRED Electronically Filed: 11/21/2023 by: HUNTER CRUZ [facility]
--- OUTSIDE RECORDS SUMMARY | 2024-02-15 17:28 | XMS_ITS | Encounter Summary ---
Author Name [facility] [place] [place] Organization [facility] [place] Address [address] [place] [address] Care Team Providers Care Ingredient Handler Name Role Phone ROSELYN PEREZ Primary Care [...] 05, 2022 [facility] [id number] NOEMI BREEN ERT PATIENT MEDICARE (WNR) MEDICARE (M) PART A Feb 13, 2019 PART A [id number] [id number] NOEMI BREEN ERT PATIENT MEDICARE (WNR) MEDICARE (M) PART B Feb 13, 2019 PART B [id number] NOEMI BREEN ERT PATIENT MEDICARE (WNR) MEDICARE (M) PART A Feb 13, 2019 PART A [id number] NOEMI BREEN ERT PATIENT MEDICARE (WNR) MEDICARE (M) PART B Feb 13, 2019 PART B [id number] NOEMI BREEN ERT PATIENT MEDICARE (WNR) MEDICARE (M) PART A Feb 13, 2019 PART A [id number] [phone] NOEMI BREEN ERT PATIENT MEDICARE (WNR) MEDICARE (M) PART B Feb 13, 2019 PART B [id number] [phone] NOEMI BREEN ERT PATIENT FOR LIFE TFL* Feb 13, 2019 [id number] [phone] NOEMI BREEN ERT PATIENT FOR LIFE SUPPLEMEN SHAI TFL Feb 13, 2019 [facility] LIFE [id number] 90 NOEMI BREEN ERT PATIENT -FO R-LIFE DIREC T CARE Oct 05, 2022 [facility] LIFE [id number] 90 NOEMI BREEN ERT PATIENT Selected Encounter This section includes the information on record at [place] for the Encounter. Date/Time Encounter Type Encounter Description Reason Pro vider Source Nov 09, 2023 12:00 AM Outpatient Encounter COMMUNITY CARE CONSULT IHE Encounter Template Text not used by [place] Plan of Treatment: Future Appointments (+ 6 months) and Future Tests (+/- 45 days) The Plan of Treatment section includes future care activities for the patient from all [place] [facility] This section includes future appointments and [...] - MEDICINE [place] [facility] Dec 20, 2023 02:30 PM AMBULATORY - MEDICINE [place] [facility] Jan 01, 2024 02:00 PM AMBULATORY - MEDICINE [place] [facility] Mar 19, 2024 01:00 PM AMBULATORY - PSYCHIATRY [place] [facility] Apr 24, 2024 01:30 PM AMBULATORY - NONE [place] [facility] Apr 30, 2024 03:00 PM AMBULATORY - MEDICINE [facility] [place] [facility] Social History: Smoking Status (Most current) [...] YRS OR MORE [place] [facility] Tobacco Use History This section includes a history of the smoking, or tobacco-related health factors, that were collected on or before the date of the Encounter. The data comes from the [place] facility where the Encounter took place. Date/Time Smoking Status/Tobacco Use Comment F acility Sep 26, 2023 09:00 AM VA-TOBACCO QUIT 15 YRS OR MORE [place] [facility] [place] [place] [facility] Oct 18, 2022 03:16 PM VA-TOBACCO FORMER USER [place] [facility] [place] [facility] Oct 18, 2022 03:16 PM VA-TOBACCO QUIT 15 YRS OR MORE [place] [facility] [place] [facility] Nov 12, 2021 10:30 AM VA-TOBACCO FORMER USER [place] [facility] [place] [facility] Nov 12, 2021 10:30 AM VA-TOBACCO QUIT 5 TO < 15 YRS [place] [facility] [place] [facility] Oct 01, 2020 11:02 AM VA-TOBACCO FORMER USER [place] [facility] [place] [facility] Oct 01, 2020 11:02 AM VA-TOBACCO QUIT 15 YRS OR MORE [place] [facility] [place] [facility] Oct 25, 2019 11:30 AM VA-TOBACCO FORMER USER [place] [facility] [place] [facility] Oct 25, 2019 11:30 AM VA-TOBACCO QUIT 5 TO < 15 YRS [place] [facility] [place] [facility] Sep 07, 2018 09:43 AM VA-TOBACCO FORMER USER [place] [facility] [place] [facility] Sep 07, 2018 09:43 AM VA-TOBACCO QUIT 5 TO < 15 YRS [place] [facility] [place] [facility] Apr 25, 2018 02:08 PM VA-TOBACCO USE DEC LINED TO ANSWER [place] [facility] [place] [facility] Radiology Reports: +/- 30 days of [...] CT PULMONARY NODULES W/O CONTRAST: NAINA BREEN [id number] -1955 M Exm Date: OCT 25, 2023@09:53 Req Phys: ISABELA ASENCIO Loc: CWM/NO/PACT 2 (Req'g Loc) Img Loc: NHM/CT Service: [place] [address] (Case 133 COMPLETE) CT THORAX W/O CONT (CT Detailed) CPT:34425 Reason for Study: look for cancer Clinical History: Report Status: Verified Date Reported: OCT 25, 2023 Date Verified: OCT 25, 2023 Automotive Generator Repairer E-Sig:/ES/RONNIE COLMENARES JR Report: Study: Noncontrast CT [...] Primary Interpreting Staff: RONNIE COLMENARES JR, Radiologist (Automotive Generator Repairer) /RONNIE WOLFE JR [place] [facility] Encounter Notes: All associated encounter notes This section contains the clinical notes associated to the Encounter. Date/Time Encounter Note(s) Provider Source Nov 09, 2023 12:00 AM NONVA CONSULT: LOCAL TITLE: COMMUNITY CARE-CONSULT RESULT NOTE STANDARD TITLE: NONVA CONSULT DATE OF NOTE: NOV 09, 2023 ENTRY DATE: NOV 30, 2023@12:07 AUTHOR: SAMIR FREED EXP COSIGNER: URGENCY: STATUS: COMPLETED VistA Imaging - Scanned Document SCANNED DOCUMENT SIGNATURE NOT REQUIRED Electronically Filed: 11/30/2023 by: SAMIR FREED CORPORATE LEARNING CONSULTANT SAMIR FREED [facility]
--- OUTSIDE RECORDS SUMMARY | 2024-02-15 17:29 | XMS_ITS | Encounter Summary ---
Author Name [facility] Organization [facility] [place] Address [address] [place] [address] Care Team Providers Care Engine Repairer Production Name Role Phone ROSELYN PEREZ Primary Care [...] TRICA [id number] NOEMI BREEN ERT PATIENT MEDICARE (WNR) MEDICARE (M) PART A Feb 13, 2019 PART A [id number] NOEMI BREEN ERT PATIENT MEDICARE (WNR) MEDICARE (M) PART B Feb 13, 2019 PART B [id number] NOEMI BREEN ERT PATIENT MEDICARE (WNR) MEDICARE (M) PART A Feb 13, 2019 PART A [id number] NOEMI BREEN ERT PATIENT MEDICARE (WNR) MEDICARE (M) PART B Feb 13, 2019 PART B [id number] [phone] NOEMI BREEN ERT PATIENT MEDICARE (WNR) MEDICARE (M) PART A Feb 13, 2019 PART A [id number] NOEMI BREEN ERT PATIENT MEDICARE (WNR) MEDICARE (M) PART B Feb 13, 2019 PART B [id number] [phone] NOEMI BREEN ERT PATIENT FOR LIFE TFL* Feb 13, 2019 [id number] [phone] NOEMI BREEN ERT PATIENT FOR LIFE SUPPLEMEN SHAI TFL Feb 13, 2019 [facility] LIFE [id number] 90 NOEMI BREEN ERT PATIENT -FO R-LIFE DIREC T CARE Oct 05, 2022 [facility] [id number] 90 NOEMI BREEN ERT PATIENT Selected Encounter This section includes the information on record at [place] for the Encounter. Date/Time Encounter Type Encounter Description Reason Pro vider Source Dec 20, 2023 12:00 AM Outpatient Encounter EVENT [...] 01, 2024 02:00 PM AMBULAT[facility] Mar 19, 2024 01:00 PM [facility] Apr 24, 2024 01:30 PM [facility] Apr 30, 2024 03:00 PM AMBULAT[facility] - [facility]ICINE [facility] Active, Pending, and Scheduled Orders This section includes a listing of several types of active, pending, and scheduled orders, including clinic medications orders, diagnostic test orders, procedure orders and consult orders; where the start date of the order is 45 days before the date of the Encounter or 45 days after the date of theEncounter. The data comes from all [place] treatment facilities. 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 The data comes from the [place] facility where the Encounter took place. Date/Time Smoking Status/Tobacco Use Comment F acility Sep 26, 2023 09:00 AM VA-TOBACCO QUIT 15 YRS OR MORE [place] [facility] Oct 18, 2022 03:16 PM VA-TOBACCO FORMER USER [place] [facility] [place] [facility] Oct 18, 2022 03:16 PM VA-TOBACCO QUIT 15 YRS OR MORE [place] [facility] [place] [facility] Nov 12, 2021 10:30 AM VA-TOBACCO FORMER USER [place] [facility] [place] [facility] Nov 12, 2021 10:30 AM VA-TOBACCO QUIT 5 TO < 15 YRS [place] [facility] [place] [facility] Oct 01, 2020 11:02 AM VA-TOBACCO FORMER USER [place] [facility] [place] [facility] Oct 01, 2020 11:02 AM VA-TOBACCO QUIT 15 YRS OR MORE [place] [facility] [place] [facility] Oct 25, 2019 11:30 AM VA-TOBACCO FORMER USER [place] [facility] [place] [facility] Oct 25, 2019 11:30 AM VA-TOBACCO QUIT 5 TO < 15 YRS [place] [facility] [place] [facility] Sep 07, 2018 09:43 AM VA-TOBACCO FORMER USER [place] [facility] [facility] Sep 07, 2018 09:43 AM VA-TOBACCO QUIT 5 TO < 15 YRS [place] [facility] Apr 25, 2018 02:08 PM VA-TOBACCO USE DEC LINED TO ANSWER [place] [facility] Encounter Notes: All associated encounter notes This section contains the clinical notes associated to the Encounter. Date/Time Encounter Note(s) Provider Source Dec 20, 2023 12:00 AM NONVA CONSULT: LOCAL TITLE: COMMUNITY CARE-CONSULT RESULT NOTE STANDARD TITLE: NONVA CONSULT DATE OF NOTE: DEC 20, 2023 ENTRY DATE: JAN 18, 2024@12:32:49 AUTHOR: SAMIR FREED EXP COSIGNER: URGENCY: STATUS: COMPLETED VistA Imaging - Scanned Document SCANNED DOCUMENT SIGNATURE NOT REQUIRED Electronically Filed: 01/18/2024 by: SAMIR FREED TURBINE ROOM ATTENDANT SAMIR FREED [place] [facility] Dec 20, 2023 12:00 AM NONVA NOTE: LOCAL TITLE: NON-VA OUTPATIENT NOTES STANDARD TITLE: NONVA NOTE DATE OF NOTE: DEC 20, 2023 ENTRY DATE: JAN 18, 2024@10:16:59 AUTHOR: SAMIR FREED EXP COSIGNER: URGENCY: STATUS: COMPLETED VistA Imaging - Scanned Document SCANNED DOCUMENT SIGNATURE NOT REQUIRED Electronically Filed: 01/18/2024 by: SAMIR FREED TURBINE ROOM ATTENDANT [facility]REED [facility]
--- OUTSIDE RECORDS SUMMARY | 2024-02-15 17:29 | XMS_ITS | Encounter Summary ---
Author Name [facility] [place] [facility] Address [address] [place] [address] Care Team Providers Care Audio Installer Name Role Phone ROSELYN PEREZ Primary [...] [id number] NOEMI BREEN ERT PATIENT MEDICARE (WNR) MEDICARE (M) PART A Feb 13, 2019 PART A [id number] NOEMI BREEN ERT PATIENT MEDICARE (WNR) MEDICARE (M) PART B Feb 13, 2019 PART B [id number] NOEMI BREEN ERT PATIENT MEDICARE (WNR) MEDICARE (M) PART A Feb 13, 2019 PART A [id number] [phone] NOEMI BREEN ERT PATIENT MEDICARE (WNR) MEDICARE (M) PART B Feb 13, 2019 PART B [id number] [phone] NOEMI BREEN ERT PATIENT MEDICARE (WNR) MEDICARE (M) PART A Feb 13, 2019 PART A [id number] [phone] NOEMI BREEN ERT PATIENT MEDICARE (WNR) MEDICARE (M) PART B Feb 13, 2019 PART B [id number] [phone] NOEMI BREEN ERT PATIENT FOR LIFE TFL* Feb 13, 2019 [id number] NOEMI BREEN ERT PATIENT FOR LIFE SUPPLEMEN SHAI TFL Feb 13, 2019 FOR LIFE [id number] NOEMI BREEN ERT PATIENT -FO R-LIFE DIREC T CARE Oct 05, 2022 FOR LIFE [id number] [phone] NOEMI BREEN ERT PATIENT Selected Encounter This section includes the information on record at [place] for the Encounter. Date/Time Encounter Type Encounter Description Reason Pro vider Source Dec 21, 2023 12:00 AM Outpatient Encounter COMMUNITY CARE CONSULT IHE Encounter Template Text not used by [place] Plan of Treatment: Future Appointments (+ 6 months) and Future Tests (+/- 45 days) The Plan of Treatment section includes future care activities for the patient from all [place] [facility]. This section includes future appointments and [...] 01, 2024 02:00 PM [facility]BULAT[facility] - [facility] Mar 19, 2024 01:00 PM [facility] Apr 24, 2024 01:30 PM [facility] Apr 30, 2024 03:00 PM 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 The data comes from the [place] facility where the Encounter took place. Date/Time Smoking Status/Tobacco Use Comment F acility Sep 26, 2023 09:00 AM VA-TOBACCO QUIT 15 YRS OR MORE [facility] [place] [facility] Oct 18, 2022 03:16 PM VA-TOBACCO FORMER USER [facility] [place] [facility] Oct 18, 2022 03:16 PM VA-TOBACCO QUIT 15 YRS OR MORE [facility] [place] [facility] Nov 12, 2021 10:30 AM VA-TOBACCO FORMER USER [facility] [place] [facility] Nov 12, 2021 10:30 AM VA-TOBACCO QUIT 5 TO < 15 YRS [facility] [place] [facility] Oct 01, 2020 11:02 AM VA-TOBACCO FORMER USER [facility] [place] [facility] Oct 01, 2020 11:02 AM VA-TOBACCO QUIT 15 YRS OR MORE [facility] [place] [facility] Oct 25, 2019 11:30 AM VA-TOBACCO FORMER USER [facility] [place] [facility] Oct 25, 2019 11:30 AM VA-TOBACCO QUIT 5 TO < 15 YRS [facility] [place] [facility] Sep 07, 2018 09:43 AM VA-TOBACCO FORMER USER [facility] [place] [facility] Sep 07, 2018 09:43 AM VA-TOBACCO QUIT 5 TO < 15 YRS [place] [facility] [place] [facility] Apr 25, 2018 02:08 PM VA-TOBACCO USE DEC [facility] Encounter Notes: All associated encounter notes This section contains the clinical notes associated to the Encounter. Date/Time Encounter Note(s) Provider Source Dec 21, 2023 12:00 AM NONVA CONSULT: LOCAL TITLE: COMMUNITY CARE-CONSULT RESULT NOTE STANDARD TITLE: NONVA CONSULT DATE OF NOTE: DEC 21, 2023 ENTRY DATE: FEB 02, 2024@14:26:52 AUTHOR: SAMIR FREED EXP COSIGNER: URGENCY: STATUS: COMPLETED VistA Imaging - Scanned Document SCANNED DOCUMENT SIGNATURE NOT REQUIRED Electronically Filed: 02/02/2024 by: SAMIR FREED HVAC SERVICE TECH SAMIR FREED [facility]
--- OUTSIDE RECORDS SUMMARY | 2024-02-15 17:29 | XMS_ITS | Encounter Summary ---
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 Name Role Phone ROSELYN PEREZ Primary Care [...] TR[id number] NOEMI BREEN ERT PATIENT MEDICARE (WNR) MEDICARE (M) PART A Feb 13, 2019 PART A [id number] NOEMI BREEN ERT PATIENT MEDICARE (WNR) MEDICARE (M) PART B Feb 13, 2019 PART B [id number] NOEMI BREEN ERT PATIENT MEDICARE (WNR) MEDICARE (M) PART A Feb 13, 2019 PART A [id number] [phone] NOEMI BREEN ERT PATIENT MEDICARE (WNR) MEDICARE (M) PART B Feb 13, 2019 PART B [id number] [phone] NOEMI BREEN ERT PATIENT MEDICARE (WNR) MEDICARE (M) PART A Feb 13, 2019 PART A [id number] NOEMI BREEN ERT PATIENT MEDICARE (WNR) MEDICARE (M) PART B Feb 13, 2019 PART B [id number] [phone] NOEMI BREEN ERT PATIENT FOR LIFE TFL* Feb 13, 2019 [id number] NOEMI BREEN ERT PATIENT FOR LIFE SUPPLEMEN SHAI TFL Feb 13, 2019 FOR LIFE [id number] NOEMI BREEN ERT PATIENT -FO R-LIFE DIREC T CARE Oct 05, 2022 FOR LIFE [id number] NOEMI BREEN ERT PATIENT Selected Encounter This section includes the information on record at [place] for the Encounter. Date/Time Encounter Type Encounter Description Reason Pro vider Source Jan 22, 2024 09:10 AM Outpatient Encounter PRIMARY CARE/MEDICINE IHE Encounter Template Text not used by [place] Plan of Treatment: Future Appointments (+ 6 months) and Future Tests (+/- 45 days) The Plan of Treatment section includes future care activities for the patient [facility] all [place] [facility] This section includes future appointments and future orders which are active, pending or scheduled. Future Appointments This section includes appointments that were scheduled to occur 6 months from the date of the Encounter, up to a maximum of 20 appointments. The data comes from all [facility]. Appointment Date/Time Appointment Type Appointme nt Facility Name Mar 19, 2024 01:00 PM AMBULATORY - PSYCHIATRY [facility] Apr 24, 2024 01:30 PM [facility] Apr 30, 2024 03:00 PM AMBULATORY - MEDICINE [facility] Active, Pending, and Scheduled Orders This section includes a listing of several types of active, pending, and scheduled orders, including clinic medications orders, diagnostic test orders, procedure orders and consult orders; where the start date of the order is 45 days before the date of the Encounter or 45 days after the date of theEncounter. The data comes from all [place] treatment facilities. Test Date/Time Test Type Test Details Facility Name Dec 31, 2023 08:22 PM Consult Order PSYCHIATRI C MEDICATION BHIP/NHM OUTPT Cons Ocular Care Aide's Choice [place] [facility] [place] [facility] Social History: Smoking Status (Most current) and [...] 26, 2023 09:00 AM VA-TOBACCO FORMER USER [place] [facility] [place] [facility] Tobacco Use History This section includes a history of the smoking, or tobacco-related health factors, that were collected on or before the date of the Encounter. The data comes from the [place] facility where the Encounter took place. Date/Time Smoking Status/Tobacco Use Comment F acility Sep 26, 2023 09:00 AM VA-TOBACCO QUIT 15 YRS OR MORE [place] [facility] [place] [facility] Oct 18, 2022 03:16 PM VA-TOBACCO FORMER USER [facility] [place] [facility] Oct 18, 2022 03:16 PM VA-TOBACCO QUIT 15 YRS OR MORE [facility] [place] [facility] Nov 12, 2021 10:30 AM VA-TOBACCO FORMER USER [facility] [place] [facility] Nov 12, 2021 10:30 AM VA-TOBACCO QUIT 5 TO < 15 YRS [facility] [place] [facility] Oct 01, 2020 11:02 AM VA-TOBACCO FORMER USER [facility] [place] [facility] Oct 01, 2020 11:02 AM VA-TOBACCO QUIT 15 YRS OR MORE [facility] [place] [facility] Oct 25, 2019 11:30 AM VA-TOBACCO FORMER USER [facility] [place] [facility] Oct 25, 2019 11:30 AM VA-TOBACCO QUIT 5 TO < 15 YRS [facility] [place] [facility] Sep 07, 2018 09:43 AM VA-TOBACCO FORMER USER [facility] [place] [facility] Sep 07, 2018 09:43 AM VA-TOBACCO QUIT 5 TO < 15 YRS [facility] Apr 25, 2018 02:08 PM VA-TOBACCO USE DEC TO [facility]SW[facility] Encounter Notes: All associated encounter notes This section contains the clinical notes associated to the Encounter. Date/Time Encounter Note(s) Provider Source Jan 22, 2024 11:04 AM ADDENDUM: LOCAL TITLE: Addendum STANDARD TITLE: ADDENDUM DATE OF NOTE: JAN 22, 2024@11:04:40 ENTRY DATE: JAN 22, 2024@11:04:42 AUTHOR: ANGELI RAMOS EXP COSIGNER: URGENCY: STATUS: COMPLETED adding Dr. Schuster /ta/ ANGELI RAMOS LPN LPN Signed: 01/22/2024 11:05 Receipt Acknowledged By: 01/22/2024 12:23 /ta/ Nitish Schuster MD Staff Physician === --- Original Document --- 01/22/24 ADMINISTRATIVE NOTE: called directly into [facility] Primary Care requesting the following medication for renewal AMLODIPINE BESYLATE TAB 10MG [place] would like to have mailed. Please review. /ta/ SILVIA WILLISAN IDANIA BROWN Signed: 01/22/2024 09:11 Receipt Acknowledged By: 01/22/2024 11:38 /ta/ Dixie Pepe RN, BSN Primary Care * AWAITING SIGNATURE * ANGELI RAMOS 01/22/2024 ADDENDUM STATUS: COMPLETED AMLODIPINE BESYLATE 10MG TAB [id number] 12/20/2022 09/15/2023 (0) SIG: TAKE ONE TABLET BY MOUTH ONCE DAILY FOR BLOOD PRESSURE/HEART, DO NOT TAKE WITH GRAPEFRUIT JUICE Indication: FOR HIGH BLOOD PRESSURE /ta/ ANGELI RAMOS LPN LPN Signed: 01/22/2024 11:06 01/22/2024 ADDENDUM STATUS: COMPLETED Done. /ta/ Nitish Schuster MD Staff Physician Signed: 01/22/2024 12:23 AN[facility]ELI RAMOS [facility] Jan 22, 2024 09:10 AM ADMINISTRATIVE NOTE: LOCAL TITLE: ADMINISTRATIVE NOTE STANDARD TITLE: ADMINISTRATIVE NOTE DATE OF NOTE: JAN 22, 2024@09:10 ENTRY DATE: JAN 22, 2024@09:10:56 AUTHOR: SILVIA EMERSON EXP COSIGNER: URGENCY: STATUS: COMPLETED ADMINISTRATIVE NOTE Has ADDENDA called directly into [facility] Primary Care requesting the following medication for renewal AMLODIPINE BESYLATE TAB 10MG would like to have mailed. Please review. /ta/ SILVIA BROWN Signed: 01/22/2024 09:11 Receipt Acknowledged By: 01/22/2024 11:38 /es/ Dixie Pepe RN, BSN Primary Care 01/22/2024 13:16 /ta/ ANGELI RAMOS LPN LPN 01/22/2024 ADDENDUM STATUS: COMPLETED adding Dr. Schuster /ta/ ANGELI RAMOS LPN LPN Signed: 01/22/2024 11:05 Receipt Acknowledged By: 01/22/2024 12:23 /ta/ Nitish Schuster MD Staff Physician 01/22/2024 ADDENDUM STATUS: COMPLETED AMLODIPINE BESYLATE 10MG TAB [id number] 12/20/2022 09/15/2023 (0) SIG: TAKE ONE TABLET BY MOUTH ONCE DAILY FOR BLOOD PRESSURE/HEART, DO NOT TAKE WITH GRAPEFRUIT JUICE Indication: FOR HIGH BLOOD PRESSURE /ta/ ANGELI RAMOS LPN LPN Signed: 01/22/2024 11:06 01/22/2024 ADDENDUM STATUS: COMPLETED Done. /ta/ Nitihs Schuster MD Staff Physician Signed: 01/22/2024 12:23 SILVIA EMERSON [facility]
[2024-02-15 17:53] LABS: Anion Gap 13 (12-20); Blood Urea Nitrogen 26 mg/dL (9-16); Carbon Dioxide 25 mmol/L (22-29); Chloride 107 mmol/L (96-108); Estimated Glomerular Filt Rate 34; Potassium 4.6 mmol/L (3.3-5.1); Sodium 140 mmol/L (135-145)
== END 2024-02-15 16:15 | disposition home or self-care (01) ==
LOC: HO.LAB 16:14
PROVIDERS: PCP Internal Medicine; Visit Provider Internal Medicine Nephrology
DX: N17.9 Acute kidney failure, unspecified (principal); N28.1 Cyst of kidney, acquired; Z90.5 Acquired absence of kidney; I10 Essential (primary) hypertension; N18.31 Chronic kidney disease, stage 3a
CPT/HCPCS: 36415; 80051; 82565; 84520

== ENCOUNTER 2024-02-21 10:51 | Outpatient (AMB) | payer OTHER, SELFPAY ==
[2024-02-21 10:58] VITALS: BP 140/90; PULSE 64; O2SAT 93; BMI 37.0
--- NOTE | 2024-02-21 10:58 | HO.NEPHOV ---
Vital Signs 02/21/24 10:58 Height 5 ft 10 in Weight 258 lb BMI 37.0 BP 140/90 H Blood Pressure Location Lt brachial Position Sitting Pulse 64 Pulse Source Pulse Oximeter Pulse Oximetry (%) 93 Oxygen Delivery Method Room Air Intake Visit Reasons: Acute kidney injury Education Coordinator Required: No Accompanied by: Self / Same As Patient Allergies No Known Allergies Allergy (Verified 02/21/24 10:58) HPI Comments Details: Bobo was seen in follow up for his chronic kidney disease. He has history of prostate cancer in 2019 which has been treated with external radiation beam therapy. Subsequently was found to have right renal mass and underwent right nephrectomy. He now has a nonmalignant cystic lesion on the left kidney. He was known to have lung nodules which are not metastatic lesions. He has no B symptoms. He closely follows up with Dr. Billy. He does not have any hematuria, dysuria, flank pain, night sweats, weight loss, fever. His serum creatinine had been going up. He does not take nonsteroidal anti-inflammatories on a regular basis. He is known to be hypertensive. He has not a diabetic. He denies chest pain, shortness of breath, paroxysmal nocturnal dyspnea, orthopnea, pedal edema, epistaxis, hemoptysis, photosensitivity, skin rashes, recurrent sinusitis, sore throat, new bone or back pain. He has no history of hepatitis. He had a biopsy of the lesion on the solitary kidney which was found to be benign. His serum creatinine is stable [facility] Medical History (Updated 12/20/23 @ 15:11 by Mohamud Mancera MD) Benign neoplasm of unspecified kidney Personal history of malignant neoplasm of renal pelvis Personal history of malignant neoplasm of prostate Nocturia Benign prostatic hyperplasia with lower urinary tract symptoms Surgical History H/O total adrenalectomy History of nephrectomy, right History of tonsillectomy Family History Mother Hypertension Father Hypertension Leukemia Prostate cancer Social History Alcohol intake: current Comment: Rare Patient Tobacco Use Status: Never used Tobacco Review of Systems Const All systems reviewed & are unremarkable except as noted in HPI and below Physical Exam Vital Signs: Last Vital Signs Pulse 64 02/21/24 10:58 BP 140/90 H 02/21/24 10:58 Pulse Ox 93 02/21/24 10:58 Oxygen Delivery Method Room Air 02/21/24 10:58 BMI result Body Mass Index 37.0 Const General: comfortable and no acute distress Orientation/consciousness: patient oriented x3 HEENT Head: Yes normocephalic Mouth: Normal oral and palatal mucosa present Eyes EOM: EOMs intact bilaterally Neck Neck: Yes supple Resp Auscultation: clear to auscultation bilaterally Cardio Jugular venous distension: no JVD Rate: regular rate GI Palpation (GI): Soft to palpation Auscultation: normal bowel sounds General: Yes no CVA tenderness Back/Spine/Pelvis Back: no CVA tenderness Skin General skin exam: no rashes or lesions noted Neuro General: patient oriented x3 and moves all extremities Extrem General: Yes no pedal edema Results Reviewed Nephrology Results: Sodium 140 mmol/L (135-145) 02/15/24 Potassium 4.6 mmol/L (3.3-5.1) 02/15/24 Chloride 107 mmol/L (96-108) 02/15/24 Carbon Dioxide 25 mmol/L (22-29) 02/15/24 BUN 26 mg/dL (9-16) H 02/15/24 Creatinine 1.95 mg/dL (0.5-1.4) H 02/15/24 Calcium 9.1 mg/dL (8.4-10.2) 12/04/23 Urine Creatinine 46.55 mg/dL 10/30/23 Protein/Creatinin Ratio 0.71 (<0.2) H 10/30/23 Assessment & Plan Assessment & Plan (1) Renal cyst, acquired, left: Code(s): N28.1 - Cyst of kidney, acquired Category: Medical (2) Solitary kidney, acquired: Code(s): Z90.5 - Acquired absence of kidney Category: Medical (3) Hypertension: Code(s): I10 - Essential (primary) hypertension Category: Medical Qualifiers: Hypertension type: primary hypertension Qualified Code(s): I10 - Essential (primary) hypertension (4) CKD (chronic kidney disease) stage 3, GFR 30-59 ml/min: Code(s): N18.30 - Chronic kidney disease, stage 3 unspecified Category: Medical Qualifiers: Chronic kidney disease stage 3 subtype: stage 3a (GFR 45-59) Qualified Code(s): N18.31 - Chronic kidney disease, stage 3a Samuel Broussard has acquired solitary kidney status post right nephrectomy for renal cell carcinoma. He has history of prostate cancer. He has no metastatic lesions. He is closely followed by Dr. iBlly. His urine output is good. His volume status is optimal. His blood pressure is not at goal. I started him back on lisinopril 2.5 mg daily. He does not have any renal artery stenosis by imaging. His last creatinine clearance was 75 mL/minute prior to this OLIVIA. He should maintain good hydration and avoid nonsteroidal anti-inflammatories. He will benefit from weight loss. I did not make any other medication changes today. All these have been discussed in detail. Further management is pending evolving data. Answered all questions. Orders: Orders Creatinine 3 Months I10 - Essential (primary) hypertension, N18.31 - Chronic kidney disease, stage 3a, N28.1 - Cyst of kidney, acquired, Z90.5 - Acquired absence of kidney Blood Urea Nitrogen 3 Months I10 - Essential (primary) hypertension, N18.31 - Chronic kidney disease, stage 3a, N28.1 - Cyst of kidney, acquired, Z90.5 - Acquired absence of kidney Electrolytes 3 Months I10 - Essential (primary) hypertension, N18.31 - Chronic kidney disease, stage 3a, N28.1 - Cyst of kidney, acquired, Z90.5 - Acquired absence of kidney Protein Creatinine Ratio, Ur 3 Months I10 - Essential (primary) hypertension, N18.31 - Chronic kidney disease, stage 3a, N28.1 - Cyst of kidney, acquired, Z90.5 - Acquired absence of kidney Medications: New lisinopril 2.5 mg PO DAILY 90 tabs 3RF Coding Level of Care Code Est Pt Level 4 (46917) Diagnoses Renal cyst, acquired, left N28.1 Solitary kidney, acquired Z90.5 Primary hypertension I10 Hypertension type: primary hypertension Stage 3a chronic kidney disease N18.31 Chronic kidney disease stage 3 subtype: stage 3a (GFR 45-59)
== END 2024-02-21 11:36 | disposition home or self-care (01) ==
PROVIDERS: PCP Internal Medicine; Visit Provider Internal Medicine Nephrology
DX: N28.1 Cyst of kidney, acquired (principal); Z90.5 Acquired absence of kidney; I12.9 Hypertensive chronic kidney disease with stage 1 through stage 4 chronic kidney disease, or unspecified chronic kidney disease; N18.31 Chronic kidney disease, stage 3a
CPT/HCPCS: 99214

== ENCOUNTER → 2024-02-21 10:51 | Outpatient (BNVA) | payer OTHER, SELFPAY | PROVIDERS: PCP Internal Medicine; Visit Provider Internal Medicine Nephrology | DX: I12.9 Hypertensive chronic kidney disease with stage 1 through stage 4 chronic kidney disease, or unspecified chronic kidney disease (principal); N18.31 Chronic kidney disease, stage 3a; N28.1 Cyst of kidney, acquired; Z90.5 Acquired absence of kidney | CPT/HCPCS: 99212 ==

== ENCOUNTER → 2024-05-06 19:30 | Outpatient (REF) | payer OTHER, SELFPAY | LOC: HO.SL 19:30 | PROVIDERS: PCP Internal Medicine; Visit Provider Internal Medicine | DX: G47.33 Obstructive sleep apnea (adult) (pediatric) (principal); G47.9 Sleep disorder, unspecified | CPT/HCPCS: 95811 ==

== ENCOUNTER → 2024-05-06 20:30 | Outpatient (BNV) | payer OTHER, SELFPAY | PROVIDERS: PCP Internal Medicine; Visit Provider Psychiatry & Neurology Neurology | DX: G47.33 Obstructive sleep apnea (adult) (pediatric) (principal) | CPT/HCPCS: 95811 ==

== ENCOUNTER 2024-05-17 08:39 | Outpatient (REF) | payer OTHER, SELFPAY ==
[2024-05-17 08:57] LABS: MANUAL DIFF FLAG NO
--- OUTSIDE RECORDS SUMMARY | 2024-05-17 09:11 | XMS_ITS | Continuity of Care Document ---
Author Name [facility] Organization [facility] Care Team Providers Care Patient Safety Manager Name Role Phone [facility] Unavailable Unavailable Problems Combined list of problems from 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 It does not include entries that were removed or entered in error. Problem Status Onset Date Problem Type Date of Resolution Comments Source Sleep apnea syndrome Active 025 Condition Mar 17, 2024 Entered By: ISABELA ASENCIO Comment: treated with cpap [facility] Joint pain in both shoulders Active 024 Condition Mar 21, 2023 Entered By: ISABELA ASENCIO Comment: Osteoarthritis [facility] Memory deficit Active Condition Sep 26, 2023 Entered By: ISABELA ASENCIO Comment: Confirmed by neuropsychology testing. [facility] Abdominal aortic aneurysm Active Condition Feb 23, 2022 Entered By: ROSELYN PEREZ Comment: 02/2022 3.0 cm infrarenal AAA: recheck AAA u/s screen 02/2025 [facility] Alcohol Abuse (SCT [id number]) Active Condition [facility] Aneurysm Active Condition Apr 06 Entered By: ROSELYN PEREZ Comment: celiac and ascending aortic aneurysm, recheck 03/2023 [facility] Aneurysm of iliac artery Active Condition Mar 23, 2021 Entered By: ALCIDES CRAWFORD Comment: distal right, 1.9cm, f/u pelvic CT due Feb 2022 [facility] Aneurysm of iliac artery Active Condition [facility] Anxiety (SCT [id number]) Active Condition [facility] 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, 2019 Entered By: ALCIDES CRAWFORD Comment: removed age 39 [facility] 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, 2021 Entered By: ROSELYN PEREZ Comment: nephrectomy, right, approx 2019 [facility] 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, 2021 Entered By: ROSELYN PEREZ Comment: radiation tx, approx 2019 [facility] Episodic paroxysmal anxiety disorder Active Condition [facility] Erectile dysfunction Active Condition [facility] Erectile Dysfunction (SCT 615772296) Active Condition [facility] Exposure to potentially hazardous substance ([facility] [place] [id number]) Active Condition May 23 4 Entered By: TOI TODD Comment: Entered automatically through [facility]RIAN Problem List documentation program [facility] KAIA - Generalised anxiety disorder Active Condition [facility] HTN - Hypertension (SCT 73180103) Active Condition [facility] Hyperlipidemia (SCT 12293627) Active Condition [facility] Multiple nodules of lung Active Condition [facility] Nocturia Active Condition [facility] Pain in left knee Active Condition [facility] Polyp Colon (SCT 49074299) Active Condition Jan 29, 2019 Entered By: ALCIDES CRAWFORD Comment: c-scope 10/26/11 f/u in 10yrs (2021) [facility] Polyp Colon (SCT 62249783) Active Condition [facility] Prostate Cancer (SCT 148958444) Active Condition [facility] Renal cell carcinoma Active Condition June 14, 2021 Entered By: ALCIDES CRAWFORD Comment: right nephrectomy May [address] Billy [facility] Renal cyst Active Condition [facility] Tinnitus Active Condition [facility] Tobacco dependence in remission Active Condition [facility] Diagnosis: ICD-10-CM I10 Essential (primary) hypertension Active Diagnosis [facility] Diagnosis: ICD-10-CM F41.9 Anxiety disorder, unspecified Active Diagnosis [facility] Diagnosis: ICD-10-CM R41.3 Other amnesia Active Diagnosis [facility] Diagnosis: ICD-10-CM I69.911 Memory deficit following unspecified cerebrovascular disease Active Diagnosis [facility] Diagnosis: ICD-10-CM I69.211 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 Active Diagnosis [facility] Diagnosis: ICD-10-CM M19.012 Primary osteoarthritis, left shoulder Active Diagnosis [facility] Diagnosis: ICD-10-CM M25.512 Pain in left shoulder Active Diagnosis [facility] Diagnosis: ICD-10-CM Z46.0 Encounter for fit/adjst of spectacles and contact lenses Active Diagnosis [facility] Diagnosis: ICD-10-CM Z23 Encounter for immunization Active Diagnosis [facility] Diagnosis: ICD-10-CM Z13.6 Encounter for screening for cardiovascular disorders Active Diagnosis [facility] Medications Combined list of outpatient medications from [...] WITH GRAPEFRU IT JUICE ORAL ACTIVE 01/22/2025 [id number] DONNA ASENCIO 2023 90 [facility] ISMAELMagen RAMIREZU SET[place] [facility] AMLODIPINE BESYLATE 10MG TAB TAKE ONE TABLET BY MOUTH ONCE DAILY FOR BLOOD PRESSURE /HEART, DO NOT TAKE WITH GRAPEFRU IT JUICE ORAL DISCONT INUED 12/21/2023 [id number] DONNA ASENCIO 2022 90 [facility] KYM RAMIREZU [facility] [facility] ARIPIPRAZOL E 20MG TAB TAKE ONE-HALF TABLET BY MOUTH ONCE DAILY FOR MOOD/DEP RESSION ORAL ACTIVE 03/20/2025 [id number] ELISA DOTSON 2024 45 [facility] ARIPIPRAZOL E 20MG TAB TAKE ONE-HALF TABLET BY MOUTH ONCE DAILY MOOD ORAL DISCONT INUED (EDIT) 11/09/2024 [id number] 5 JAKUB MESA MD 2023 15 [facility] ARIPIPRAZOL E 20MG TAB TAKE ONE-HALF TABLET BY MOUTH ONCE DAILY MOOD ORAL DISCONT INUED (EDIT) 07/26/2024 [id number] JAKUB MESA MD 2023 15 [facility] ARIPIPRAZOL E 20MG TAB TAKE ONE-HALF TABLET BY MOUTH ONCE DAILY MOOD ORAL DISCONT INUED (EDIT) 04/28/2024 [id number] 4 JAKUB MESA MD 2023 15 [facility] ARIPIPRAZOL E 20MG TAB TAKE ONE-HALF TABLET BY MOUTH ONCE DAILY MOOD ORAL DISCONT INUED (EDIT) 01/28/2024 [id number] 4 JAKUB MESA MD 2022 15 [facility] ATORVASTATI N CA 80MG TAB TAKE ONE-HALF TABLET BY MOUTH AT BEDTIME ORAL ACTIVE 01/10/2025 [id number] 5 DONNA ASENCIO CHARLES D 2023 45 [facility] ATORVASTATI N CA 80MG TAB TAKE ONE-HALF TABLET BY MOUTH AT BEDTIME ORAL DISCONT INUED 12/21/2023 [id number] 4 DONNA ASENCIO CHARLES D 2022 45 [facility] CARVEDILOL 6.25MG TAB TAKE ONE TABLET BY MOUTH TWICE DAILY WITH FOOD ORAL ACTIVE 12/20/2024 [id number] 5 DONAL GUADALUPE JAMES 2023 60 [facility] DICLOFENAC NA 1% GEL,TOP APPLY 2 GRAMS TOPICALL Y THREE TIMES DAILY NEEDED DIRECTED FOR LEFT SHOULDER PAIN - USE DOSING CARD PROVIDED IN BOX TOPICA L 03/21/2024 [id number] 4 DONNA ASENCIO CHARLES D 2023 100 [facility] LISINOPRIL 2.5MG TAB TAKE ONE TABLET BY MOUTH ONCE DAILY TO CONTROL BLOOD PRESSURE ORAL ACTIVE 02/21/2025 [id number] 5 ANAYELIDONAL JAMES 2024 90 [facility] [place] 25MG TAB TAKE ONE TABLET BY MOUTH ONCE DAILY FOR BLOOD PRESSURE /HEART ORAL 12/21/2023 [id number] 4 DONNA ASENCIO CHARLES D 2022 90 [facility] MULTIVITAMI NS CAP/TAB TAKE ONE TABLET BY MOUTH ONCE DAILY ORAL ACTIVE [facility]ORD [facility] OTHER CAP/TAB TAKE AREDS EYE VITAMINS BY MOUTH ONCE DAILY ORAL ACTIVE [facility] VENLAFAXINE HCL 75MG 24HR CAP,SA TAKE ONE CAPSULE BY MOUTH ONCE DAILY DEPRESSI ON/ ANXIETY ORAL ACTIVE 03/20/2025 [id number] ELISA DOTSON 2024 90 [facility] VENLAFAXINE HCL 75MG 24HR CAP,SA TAKE ONE CAPSULE BY MOUTH ONCE DAILY DEPRESSI ON/ ANXIETY ORAL DISCONT INUED 11/09/2024 [id number] JAKUB MESA MD 2023 30 [facility] VENLAFAXINE HCL 75MG 24HR CAP,SA TAKE ONE CAPSULE BY MOUTH ONCE DAILY DEPRESSI ON/ ANXIETY ORAL DISCONT INUED (EDIT) 07/26/2024 [id number] 4 JAKUB MESA MD 2023 30 [facility] VENLAFAXINE HCL 75MG 24HR CAP,SA TAKE ONE CAPSULE BY MOUTH ONCE DAILY DEPRESSI ON/ ANXIETY ORAL DISCONT INUED (EDIT) 04/28/2024 [id number] 4 JAKUB MESA MD 2023 30 [facility] VENLAFAXINE HCL 75MG 24HR CAP,SA TAKE ONE CAPSULE BY MOUTH ONCE DAILY ORAL DISCONT INUED (EDIT) 01/28/2024 [id number] 4 JAKUB MESA MD 2022 30 [facility] Allergies, Adverse Reactions, Alerts Combined list of allergies from 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 It does not include entries that were removed or entered in error. Substance Category Reaction Severity Reaction type Status Date Reported Comments Source LISINOPRIL Propensity to adverse reactions to drug (finding) Cough active 9 [facility] METOPROLOL Propensity to adverse reactions to drug (finding) Dizziness active 9 [facility] PERCOCET Propensity to adverse reactions to drug (finding) Urticaria active 9 [facility] [place] [facility] Immunizations Combined list of available immunizations from the 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 Immunization Series Date Given Administered By Site Reaction Lot Number CVX Code Drug Leather Case Finisher Status Comments Source COVID-19 (MODERNA), MRNA, LNP-S, PF, 50 MCG/0.5 ML (AGES 12+ YEARS) 6 2023 ZHEN RAMOS RIGHT DELTO ID [id number] 312 complet ed [facility] INFLUENZA, HIGH-DOSE, TRIVALENT, PF 2023 ZHEN RAMOS RIGHT DELTO ID [id number] 135 complet ed [facility] [place] [facility] COVID-19 (MODERNA), MRNA, LNP-S, PF, 50 MCG/0.5 ML (AGES 12+ YEARS) 5 2023 ZHEN RAMOS RIGHT DELTO ID [id number] 312 complet ed [facility] INFLUENZA, HIGH-DOSE, QUADRIVALENT 2022 VIVIANE FARIAS LEFT DELTO ID [id number] 197 complet ed [facility] TDAP 2022 VIVIANE FARIAS RIGHT DELTO ID [id number] 115 complet ed [facility] COVID-19 (MODERNA), MRNA, LNP-S, PF, 50 MCG/0.5 ML (AGES 12+ YEARS) 2022 ALISSON GALLO ER M LEFT DELTO ID [id number] 312 complet ed [facility] PNEUMOCOCCAL CONJUGATE PCV20, POLYSACCHARID E [id number] CONJUGATE, ADJUVANT, PF 2022 ALISSON GALLO ER M LEFT DELTO ID [id number] 216 complet ed [facility] RSV, BIVALENT, PROTEIN SUBUNIT RSVPREF, DILUENT RECONSTITUTED , 0.5 ML, PF 2022 ALISSON GALLO M RIGHT DELTO ID [id number] 305 complet ed [id number] [facility] INFLUENZA VACCINE, QUADRIVALENT, ADJUVANTED 2021 205 complet ed [place] INFLUENZA, UNSPECIFIED FORMULATION 2021 88 complet ed JLV/DG [facility] COVID-19 (MODERNA), MRNA, LNP-S, PF, 100 MCG OR 50 MCG DOSE 3 2020 207 complet ed [facility] COVID-19 (MODERNA), MRNA, LNP-S, PF, 100 MCG/0.5 [...] INFLUENZA, SEASONAL, INJECTABLE [address] [facility] TDAP 2011 115 complet ed [facility] TD (ADULT) 2011 RIGHT DELTO ID 138 complet ed tetanus toxoid, adsorbed- JLV/DOD Lot#: [id number] Mfr: [employer] PA[employer]UR [facility] TYPHOID, VICPS 2011 RIGHT DELTO ID 101 complet ed typhoid Vi capsular polysacch aride vaccine-J LV/DOD Lot#: [id number] Mfr: [employer] PA[employer] [facility] HEP B, ADULT 1 2011 LEFT ARM 43 complet ed hepatitis B vaccine, adult dosage-JL V/DOD Lot#: [id number] [facility] TD (ADULT), 2 LF TETANUS TOXOID, PRESERVATIVE FREE, ADSORBED 2005 09 complet ed tetanus and diphtheri a toxoids, adsorbed, preservat tracie free, for adult use (2 Lf of tetanus toxoid and 2 Lf of diphtheri a toxoid) Lot#: [id number] Mfr: [employer] [facility] ANTHRAX 5 2003 24 complet ed JLV/DOD Lot#: [id number] [facility] MMR 2 2002 LEFT ARM 03 complet ed JLV/DOD Lot#: [id number] Mfr: [employer] [facility] ANTHRAX 4 2002 LEFT ARM 24 complet ed JLV/DOD Lot#: [id number] [facility] ANTHRAX 3 2002 24 complet ed JLV/DOD Lot#: [id number] [facility] VACCINIA (SMALLPOX) 2 2002 LEFT ARM 75 complet ed JLV/DOD Lot#: [id number] Mfr: VEDA RST [facility] ANTHRAX 2 2002 LEFT ARM 24 complet ed JLV/DOD Lot#: [id number] [facility] ANTHRAX 1 2001 RIGHT ARM 24 complet ed V/DOD Lot#: [id number] [facility] HEP A, ADULT 2 1998 52 complet ed hepatitis A vaccine, adult dosage- V/DOD Lot#: [id number] Mfr: [employer] [facility] HEP A, ADULT 1 1998 52 complet ed V/DOD Lot#: [id number] Mfr: [employer] [facility] MENINGOCOCCAL MPSV4 1 1998 32 complet ed meningoco ccal polysacch aride vaccine (MPSV4) [facility] MMR 1 1998 03 complet ed measles, mumps and rubella virus vaccine-J /DOD Lot#: [id number] Mfr: CONNAUGHT [facility] YELLOW FEVER 1995 37 complet ed V/DOD [facility] Results Combined list of recent chemistry, hematology and other laboratory results from Department of Defense and Veterans Affairs, ranging from 15 months to all on record, depending upon the facility. Order Name Results Value Reference Range Date Interpretation Specimen Comments Source VITAMIN B-1 (THIAMINE )-(QU) THIAMINE [MOLES/VOLU ME] IN SERUM OR PLASMA 22 nmol/L 8 - 30 10/01 Specimen Type: PLASMA Comment: Vitamin supplementa tion within 24 hours prior to blood draw may affect the accuracy of the results. This test was developed and its analytical performance characteris tics have been determined by [employer] [place], [place]. It has not been cleared or approved by the U.S. Food and Drug Administrat ion. This assay has been validated pursuant to the CLIA regulations and is used for clinical purposes. Test Performed by [facility] [address] [facility], [address] [place] [address] Angus Mendez M.D., Ph.D., Director of Laboratorie s , CLIA [id number] TEST PERFORMED AT: , Ordering Provider: YARIEL ASENCIO Report Released Date/Time: Sep 16, 2023 06:52 PM Reporting Lab: [facility] [place] [facility] [address] [facility] [address] Performing Lab: [facility] [place] [facility] [address] [address] [facility] [place] [facility] FOLATE (WROX) FOLATE [MASS/VOLUM E] IN SERUM OR PLASMA 9.92 ng/mL 5.2 10/01 Specimen Type: SERUM No comment entered. Ordering Provider: YARIEL ASENCIO Report Released Date/Time: Sep 16, 2023 06:52 PM Reporting Lab: [facility] [place] [facility] [address] [facility] [address] Performing Lab: [facility] [place] [facility] [address] [facility] [address] [facility] [place] [facility] TSH THYROTROPIN [UNITS/VOLU ME] IN SERUM OR PLASMA 0.78 u[IU]/ mL 0.35 - 5.00 10/01 Specimen Type: SERUM No comment entered. Ordering Provider: YARIEL ASENCIO Report Released Date/Time: Sep 16, 2023 06:52 PM Reporting Lab: [facility] [place] [facility] [address] [facility] [address] Performing Lab: [facility] [place] [facility] [address] [facility] [address] [facility] [place] [facility] PSA PROSTATE SPECIFIC AG [MASS/VOLUM E] IN SERUM OR PLASMA 0.53 ng/mL 0.00 - 4.00 10/01 Specimen Type: SERUM No comment entered. Ordering Provider: YARIEL ASENCIO Report Released Date/Time: Sep 16, 2023 06:52 PM Reporting Lab: [facility] [place] [facility] [address] [facility] [address] Performing Lab: [facility] [facility] [address] [facility] [address] [facility] [place] [facility] LIPID PANEL FASTING CHOLESTEROL [MASS/VOLUM E] IN SERUM OR PLASMA 185 mg/dL 10/01 Specimen Type: SERUM No comment entered. Ordering Provider: YARIEL ASENCIO Report Released Date/Time: Sep 16, 2023 06:52 PM Reporting Lab: [facility] [place] [facility] [address] [facility] [address] Performing Lab: [facility] [address] [facility] [address] [facility] LIPID PANEL FASTING TRIGLYCERID E [MASS/VOLUM E] IN SERUM OR PLASMA 272 mg/dL 0 - 150 10/01 H Specimen Type: SERUM No comment entered. Ordering Provider: YARIEL ASENCIO Report Released Date/Time: Sep 16, 2023 06:52 PM Reporting Lab: [facility] [address] Performing Lab: [facility] [address] [facility] LIPID PANEL FASTING CHOLESTEROL IN LDL [MASS/VOLUM E] IN SERUM OR PLASMA BY CALCULATION 96 mg/dL 0 - 129 10/01 Specimen Type: SERUM No comment entered. Ordering Provider: YARIEL ASENCIO Report Released Date/Time: Sep 16, 2023 06:52 PM Reporting Lab: [facility] [address] Performing Lab: [facility] [address] [facility] LIPID PANEL FASTING CHOLESTEROL .TOTAL/CHOL ESTEROL IN HDL [MASS RATIO] IN SERUM OR PLASMA 5.3 10/01 Specimen Type: SERUM No comment entered. Ordering Provider: YARIEL ASENCIO Report Released Date/Time: Sep 16, 2023 06:52 PM Reporting Lab: [facility] [address] Performing Lab: [facility] [address] [facility] [place] [facility] LIPID PANEL FASTING CHOLESTEROL IN HDL [MASS/VOLUM E] IN SERUM OR PLASMA 35 mg/dL 40 - 60 10/01 L Specimen Type: SERUM No comment entered. Ordering Provider: YARIEL ASENCIO Report Released Date/Time: Sep 16, 2023 06:52 PM Reporting Lab: [facility] [place] [facility] [address] [facility] [address] Performing Lab: [facility] [place] [facility] [address] [facility] [address] [facility] [place] [facility] LIVER FUNCTION PROTEIN [MASS/VOLUM E] IN SERUM OR PLASMA 6.9 g/dL 6.0 - 8.3 10/01 Specimen Type: SERUM No comment entered. Ordering Provider: YARIEL ASENCIO Report Released Date/Time: Sep 16, 2023 06:52 PM Reporting Lab: [facility] [place] [address] [address] Performing Lab: [facility] [place] [facility] [address] [facility] [address] [facility] [place] [facility] LIVER FUNCTION ALBUMIN [MASS/VOLUM E] IN SERUM OR PLASMA 4.0 g/dL 3.5 - 5.0 10/01 Specimen Type: SERUM No comment entered. Ordering Provider: YARIEL ASENCIO Report Released Date/Time: Sep 16, 2023 06:52 PM Reporting Lab: [facility] [place] [address] [address] Performing Lab: [facility] [place] [place] [address] [address] [facility] [place] [facility] LIVER FUNCTION ALKALINE PHOSPHATASE [ENZYMATIC ACTIVITY/VO LUME] IN SERUM OR PLASMA 86 U/L 40 - 150 10/01 Specimen Type: SERUM No comment entered. Ordering Provider: YARIEL ASENCIO Report Released Date/Time: Sep 16, 2023 06:52 PM Reporting Lab: [facility] [place] [address] [address] Performing Lab: [facility] [place] [facility] [address] [facility] [address] [facility] [place] [facility] LIVER FUNCTION ASPARTATE AMINOTRANSF ERASE [ENZYMATIC ACTIVITY/VO LUME] IN SERUM OR PLASMA 13 U/L 5 - 34 10/01 Specimen Type: SERUM No comment entered. Ordering Provider: YARIEL ASENCIO Report Released Date/Time: Sep 16, 2023 06:52 PM Reporting Lab: [facility] [place] [facility] [address] [facility] [address] Performing Lab: [facility] [place] [facility] [address] [facility] [address] [facility] [place] [facility] LIVER FUNCTION ALANINE AMINOTRANSF ERASE [ENZYMATIC ACTIVITY/VO LUME] IN SERUM OR PLASMA 21 U/L 10/01 Specimen Type: SERUM No comment entered. Ordering Provider: YARIEL ASENCIO Report Released Date/Time: Sep 16, 2023 06:52 PM Reporting Lab: [facility] [place] [address] [address] Performing Lab: [facility] [place] [address] [address] [facility] [place] [facility] LIVER FUNCTION BILIRUBIN.T OTAL [MASS/VOLUM E] IN SERUM OR PLASMA 0.8 mg/dL 0.2 - 1.2 10/01 Specimen Type: SERUM No comment entered. Ordering Provider: YARIEL ASENCIO Report Released Date/Time: Sep 16, 2023 06:52 PM Reporting Lab: [facility] [place] [address] [address] Performing Lab: [facility] [place] [facility] [address] [facility] [address] [facility] [place] [facility] BASIC METABOLIC PANEL (fasting) UREA NITROGEN [MASS/VOLUM E] IN SERUM OR PLASMA 24 mg/dL 7 - 25 10/01 Specimen Type: SERUM No comment entered. Ordering Provider: YARIEL ASENCIO Report Released Date/Time: Sep 16, 2023 06:52 PM Reporting Lab: [facility] [place] [facility] [address] [facility] [address] Performing Lab: [facility] [address] [facility] [address] [facility] BASIC METABOLIC PANEL (fasting) GLUCOSE [MASS/VOLUM E] IN SERUM OR PLASMA 99 mg/dL 65 - 100 10/01 Specimen Type: SERUM No comment entered. Ordering Provider: YARIEL ASENCIO Report Released Date/Time: Sep 16, 2023 06:52 PM Reporting Lab: [facility] [address] [facility] [address] Performing Lab: [facility] [address] [facility] [address] [facility] BASIC METABOLIC PANEL (fasting) SODIUM [MOLES/VOLU ME] IN SERUM OR PLASMA 137 mmol/L 135 - 145 10/01 Specimen Type: SERUM No comment entered. Ordering Provider: YARIEL ASENCIO Report Released Date/Time: Sep 16, 2023 06:52 PM Reporting Lab: [facility]N [facility] [address] [facility] [id number] Performing Lab: [facility] [address] [facility] [id number] [facility] BASIC METABOLIC PANEL (fasting) POTASSIUM [MOLES/VOLU ME] IN SERUM OR PLASMA 4.4 mmol/L 3.5 - 5.0 10/01 Specimen Type: SERUM No comment entered. Ordering Provider: YARIEL ASENCIO Report Released Date/Time: Sep 16, 2023 06:52 PM Reporting Lab: [facility] [address] [facility] [id number] Performing Lab: [facility] [address] [facility] BASIC METABOLIC PANEL (fasting) CHLORIDE [MOLES/VOLU ME] IN SERUM OR PLASMA 104 mmol/L 100 - 110 10/01 Specimen Type: SERUM No comment entered. Ordering Provider: YARIEL ASENCIO Report Released Date/Time: Sep 16, 2023 06:52 PM Reporting Lab[facility] [place] [facility] [address] [facility] [address] Performing Lab: [facility] [address] [facility] [address] [facility] BASIC METABOLIC PANEL (fasting) CARBON DIOXIDE, TOTAL [MOLES/VOLU ME] IN SERUM OR PLASMA 22 meq/L 20 - 30 10/01 Specimen Type: SERUM No comment entered. Ordering Provider: YARIEL ASENCIO Report Released Date/Time: Sep 16, 2023 06:52 PM Reporting Lab[facility] [address] [facility] [address] Performing Lab: [facility] [address] [facility] [address] [facility] BASIC METABOLIC PANEL (fasting) CREATININE [MASS/VOLUM E] IN SERUM OR PLASMA 1.99 mg/dL 0.50 - 1.40 10/01 H Specimen Type: SERUM No comment entered. Ordering Provider: YARIEL ASENCIO Report Released Date/Time: Sep 16, 2023 06:52 PM Reporting Lab: [facility] [address] [facility] [address] Performing Lab: [facility] [address] [facility] [address] [facility] BASIC METABOLIC PANEL (fasting) GLOMERULAR FILTRATION RATE/1.73 SQ M.PREDICTED [VOLUME RATE/AREA] IN SERUM, PLASMA OR BLOOD BY CREATININE- BASED FORMULA (CKD-EPI 2020) 36 mL/min 60 10/01 L Specimen Type: SERUM No comment entered. Ordering Provider: YARIEL ASENCIO Report Released Date/Time: Sep 16, 2023 06:52 PM Reporting Lab: [facility] [place] [facility] [address] [facility] [address] Performing Lab: [place] [facility] [address] [facility] [address] [facility] CALCIUM CALCIUM [MASS/VOLUM E] IN SERUM OR PLASMA 9.1 mg/dL 8.5 - 10.2 10/01 Specimen Type: SERUM No comment entered. Ordering Provider: YARIEL ASENCIO Report Released Date/Time: Sep 16, 2023 06:52 PM Reporting Lab: [address] [address] Performing Lab: [address] [address] [facility] VITAMIN B12 COBALAMIN (VITAMIN B12) [MASS/VOLUM E] IN SERUM OR PLASMA 1105 pg/mL 200 - 900 10/01 H Specimen Type: SERUM No comment entered. Ordering Provider: YARIEL AESNCIO Report Released Date/Time: Sep 16, 2023 06:52 PM Reporting Lab: [address] [address] Performing Lab: [address] [address] [facility] MICROSCOP IC AUTOMATED , URINE LEUKOCYTES [#/AREA] IN URINE SEDIMENT BY MICROSCOPY HIGH POWER FIELD 0-5/[H PF] 0 - 5 10/01 Specimen Type: URINE Comment: If Glucose = >500 and Ketones are positive, please alert the Physician. Ordering Provider: YARIEL ASENCIO Report Released Date/Time: Sep 16, 2023 06:52 PM Reporting Lab: [address] [address] Performing Lab: [address] [address] [facility] MICROSCOP IC AUTOMATED , URINE MUCUS [#/AREA] IN URINE SEDIMENT BY MICROSCOPY LOW POWER FIELD FEW/[L PF] 10/01 Specimen Type: URINE Comment: If Glucose = >500 and Ketones are positive, please alert the Physician. Ordering Provider: YARIEL ASENCIO Report Released Date/Time: Sep 16, 2023 06:52 PM Reporting Lab: [address] [address] Performing Lab: [facility] [place] [facility] [address] [facility] [address] [facility] [place] [facility] MICROSCOP IC AUTOMATED , URINE ERYTHROCYTE S [#/AREA] IN URINE SEDIMENT BY MICROSCOPY HIGH POWER FIELD 0-2/[H PF] 0 - 3 10/01 Specimen Type: URINE Comment: If Glucose = >500 and Ketones are positive, please alert the Physician. Ordering Provider: YARIEL ASENCIO Report Released Date/Time: Sep 16, 2023 06:52 PM Reporting Lab: [facility] [place] [facility] [address] [facility] [address] Performing Lab: [facility] [place] [facility] [address] [facility] [address] [facility] [place] [facility] Vital Signs Combined list of inpatient and outpatient Vital Signs from Department of Defense and Veterans Affairs, ranging from 12 months to all on record, depending upon the facility. Vital Sign Value Date Comments Source SYSTOLIC BLOOD PRESSURE 138 05/01/19 25 15:01:54 [facility] [place] [facility] DIASTOLIC BLOOD PRESSURE 84 025 15:01:54 [facility] [place] [facility] PULSE OXIMETRY 96 04/30/2024 15:01:54 [facility] [place] [facility] WEIGHT 261 04/30/2024 15:01:54 [facility] [place] [facility] BMI 38 kg/m2 04/30/2024 15:01:54 [facility] [place] [facility] PAIN 0 04/30/2024 15:01:54 [facility] [place] [facility] HEIGHT 70 04/30/2024 15:01:54 [facility] [place] [facility] TEMPERATURE 97.4 04/30/2024 15:01:54 [facility] [place] [facility] PULSE 64 04/30/2024 15:01:54 [facility] [place] [facility] RESPIRATION 16 04/30/2024 15:01:54 [facility] [place] [facility] SYSTOLIC BLOOD PRESSURE 124 01/01/20 24 14:01:54 [facility] [place] [facility] DIASTOLIC BLOOD PRESSURE 83 024 14:01:54 [facility] [place] [facility] PULSE OXIMETRY 95 01/01/2024 14:01:54 [facility] [place] [facility] WEIGHT 260.1 01/01/2024 14:01:54 [facility] [place] [facility] BMI 37 kg/m2 01/01/2024 14:01:54 [facility] [place] [facility] [...] 09:00:58 [facility] [place] [facility] BMI 37 kg/m2 09/26/2023 09:00:58 [facility] [place] [facility] [...] 09:03:15 [facility] [place] [facility] BMI 37 kg/m2 06/20/2023 09:03:15 [facility] [place] [facility] [...] 08:01:06 [facility] [place] [facility] BMI 38 kg/m2 05/18/2023 08:01:06 [facility] [place] [facility] PAIN 0 05/18/2023 08:01:06 [facility] [place] [facility] PULSE 80 05/18/2023 08:01:06 [facility] [place] [facility] RESPIRATION 20 05/18/2023 08:01:06 [facility] [place] [facility] Encounters Combined list of: 1) Encounters from Department of Veterans Affairs facilities going backup to the last 18 months, not all [place] inpatient encounters are included; 2) Encounters from the Department of Defense facilities going backup to 280 months. Location Location Details Encounter Type Encounter Number Reason For Visit Attending Provider ADM Date DC Date Status Disposition Source [place] [facility] [place] [facility] Outpatient Encounter [id number] 12/06 [place] [facility] [facility] Outpatient Encounter [id number] 12/07 [facility] [place] [facility] Outpatient Encounter [id number] 12/13 [place] [facility] [facility] Outpatient Encounter [id number] 12/20 [facility] Outpatient Encounter [id number] Angi IRVIN 12/20 [facility] [place] [facility] OFFICE O/P EST LOW 20-29 MIN [id number] Diagnos is: ICD-10- CM I10 Essenti al (primar y) hyperte KIRSTEN Bull RD 12/20 [place] [facility] [place] [facility] ELECTROCAR DIOGRAM REPORT [id number] Diagnos is: ICD-10- CM Z13.6 Encount er for screeni ng for cardiov ascular disorde rs Fany REID 12/20 [facility] [place] [facility] Outpatient Encounter [id number] 12/22 [place] [facility] [facility] Outpatient Encounter [id number] 12/26 [facility] Outpatient Encounter [id number] Angi IRVIN 12/26 [facility] [place] [facility] OFF/OP EST MAY X REQ PHY/QHP [id number] Diagnos is: ICD-10- CM Z23 Encount er for immuniz ation VIVIANE FARIAS 12/26 [facility] [place] FIT SPECTACLES MULTIFOCAL [id number] Diagnos is: ICD-10- CM Z46.0 Encount er for fit/adj st of spectac les and contact lenses INEZ GOODRICH CELINE 12/26 [facility] [place] [place] [facility] Outpatient Encounter [id number] 12/27 [facility] [place] [facility] OFFICE O/P EST LOW 20-29 MIN [id number] Diagnos is: ICD-10- CM F41.9 Anxiety disorde r, unspeci Sera Powell MD 01/27 [facility] [place] En[facility] [id number] 03/07 [facility] [place] [facility] [place] En[facility] [id number] 03/16 [facility] [place] [place] En[facility] [id number] 03/18 [facility] [place] [place] Encounter [id number] 03/18 [facility] [place] [facility] [place] Encounter [id number] JOSE FRANCISCO BOO 03/20 [facility] [place] [place] OFFICE O/P EST LOW 20 MIN [id number] Diagnos is: ICD-10- CM M25.512 Pain in left shoulde KIRSTEN Chatterjee RD 03/21 [facility] [place] En[facility] [id number] 03/23 [facility] [place] [place] En[facility] [id number] 03/30 [facility] [place] [facility] [place] Encounter [id number] 04/04 [facility] [place] [facility] [place] Encounter [id number] 04/20 [facility] [place] [facility] [place] OFF[facility] O/P EST LOW 20 MIN [id number] Diagnos is: ICD-10- CM F41.9 Anxiety disorde r, unspeci Sera Powell MD 04/27 [facility] [place] En[facility] [id number] 05/04 [facility] [place] [facility] [place] En[facility] [id number] 05/07 [facility] [place] OFFICE O/P NEW MOD 45 MIN [id number] Diagnos is: ICD-10- CM M19.012 Primary osteoar thritis , left shoulde Rosy Saucedo 05/17 [facility] [place] En[facility] [id number] 05/17 [facility] [place] Encounter [id number] [facility] [place] [place] Encounter [id number] [facility] [place] [facility] Outpatient Encounter [id number] 06/19 [facility] [place] [facility] Out[facility] Encounter [id number] 06/19 [place] [facility] [place] [facility] Outpatient Encounter [id number] Angi IRVIN 06/19 [facility] [place] [facility] OFFICE O/P EST LOW 20 MIN [id number] Diagnos is: ICD-10- CM 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 age KIRSTEN ASENCIO RD 06/19 [facility] [place] OFF[facility] O/P EST SF 10 MIN [id number] Diagnos is: ICD-10- CM F41.9 Anxiety disorde r, unspeci fied Sera MESA MD 07/25 [facility] [place] En[facility] [id number] 07/26 [facility] [place] [facility] [place] En[facility] [id number] 07/29 [facility] [place] [place] PSYCH DIAGNOSTIC EVALUATION [id number] Diagnos is: ICD-10- CM R41.3 Other amnesia FEARING,LAMONT HO A 08/07 [facility] [place] En[facility] [id number] FEARING,LAMONT HO A 08/07 [facility] [place] PSYCL/NR[place] Y[place] TST PHY/[place] [id number] Diagnos is: ICD-10- CM R41.3 Other amnesia FEARING,LAMONT HO A 08/21 [facility] [place] Out[facility] Encounter [id number] [facility] [place] Encounter [id number] [facility] [place] [facility] Encounter [id number] 09/20 [facility] [place] [facility] [place] OFF[facility] O/P EST SF 10 MIN [id number] Diagnos is: ICD-10- CM I69.911 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 KIRSTEN ASENCIO RD 09/25 [facility] [place] [place] [id number] 1.10/09 [facility] [place] [facility] [place] Encounter [id number] 1.10/09 [facility] [place] [facility] [facility] [place] En[facility] [id number] 10/12 [facility] [place] [facility] [place] En[facility] [id number] 10/20 [facility] [place] [facility] [place] Encounter [id number] [facility] [place] [facility] [place] En[facility] [id number] 1.10/25 [facility] [place] [facility] [place] En[facility] [id number] 1.10/25 [facility] [place] [facility] [place] Encounter [id number] 1.10/30 [facility] [place] [facility] [place] En[facility] [id number] 1.11/08 [facility] [place] [facility] OFF[facility] O/P EST SF 10 MIN [id number] Diagnos is: ICD-10- CM F41.9 Anxiety disorde r, unspeci fiSera Rodriguez MD 11/08 [facility] [place] [id number] 11/11 [facility] [place] Encounter [id number] 1.11/15 [facility] [place] En[facility] [id number] [facility] [place] En[facility] [id number] [facility] [place] [facility] Encounter [id number] 12/04 [facility] [place] En[facility] [id number] [facility] [place] [facility] En[facility] [id number] 12/15 [facility] [place] [facility] En[facility] [id number] 12/19 [facility] [place] En[facility] [id number] [facility] [place] [facility] Encounter [id number] 12/27 [facility] [place] [facility] [id number] 12/27 [facility] [place] [facility] [id number] 12/27 [facility] [place] [facility] OFFICE O/P EST SF 10 MIN [id number] Diagnos is: ICD-10- CM R41.3 [address] am[address] K[address]EN ASENCIO RD 12/31 [facility] [place] En[facility] [id number] 01/02 [facility] [place] En[facility] [id number] 01/09 [facility] [place] [facility] En[facility] [id number] 1.01/09 [facility] [place] En[facility] [id number] 01/21 [facility] [place] [facility] En[facility] [id number] 02/14 [facility] [place] [facility] Encounter [id number] 02/20 [facility] [place] [facility] Encounter [id number] 02/26 [facility] [place] [facility] [place] En[facility] [id number] 03/07 [facility] [place] [facility] Encounter [id number] 03/12 [facility] [place] [facility] OFFICE O/P EST HI 40 MIN [id number] Diagnos is: ICD-10- CM F41.9 Anxiety disorde r, unspeci fied Fany DOTSON 03/19 [facility] [place] En[facility] [id number] 03/19 [facility] [place] En[facility] [id number] [facility] [place] En[facility] [id number] 03/28 [facility] [place] [facility] Encounter [id number] 04/08 [facility] [place] En[facility] [id number] 04/19 [facility] [place] En[facility] [id number] 04/23 [facility] [place] En[facility] [id number] 04/28 [facility] [place] [place] [facility] OFFICE O/P EST LOW 20 MIN [id number] Diagnos is: ICD-10- CM I10 Essenti al (primar y) hyperte nsKIRSTEN Gregg RD 04/30 [facility] En[facility] [id number] 04/30 [facility] [place] [facility] Social History Combined list of available smoking, tobacco, and other social history from 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 Social History Type Response Date Comment Sourc e Tobacco smoking status WYIS VA-TOBACCO FORMER USER 09/26/2023 [facility] History of tobacco use VA-TOBACCO QUIT 15 YRS OR MORE 09/26/2023 [facility] History of tobacco use VA-TOBACCO FORMER USER [facility] [place] [facility] History of tobacco use [place]-TOBACCO FORMER USER 12/29/2021 [facility] History of tobacco use [facility]BACCO FORMER [facility]ER [facility] [place] [facility] History of tobacco use [place]-TOBACCO QUIT 15 YRS OR MORE 10/01/2020 [facility] of tobacco use [place]-TOBACCO FORMER USER 10/25/2019 [facility] [place] [facility] History of tobacco use [place]-TOBACCO FORMER USER 09/07/2018 [facility] History of tobacco use VA-TOBACCO USE DECLINED TO ANSWER 04/25/2018 [facility] Plan of Care List of future care activities from Department of Veterans Affairs facilities. Additional future care activities may be listed in the Assessment and Plan section. Date/Time Care Activity Care Activity Detail Facili ty 05/21/2024 AMBULATORY - PSYCHIATRY AMBULATORY - PSYC HIATRY [facility]
[2024-05-17 09:38] LABS: Basophils Absolute Auto 0.1 X10*3/uL (0.0-0.2); Eosinophils Absolute Auto 0.1 X10*3/uL (0.0-0.4); Eosinophils Percent Auto 1.1 % (0-4); Hematocrit 42.1 % (42.0-52.0); Hemoglobin 14.2 g/dl (14.0-18.0); Imm Gran Abs Auto 0.03 X10*3/uL (0.00-0.03); Imm Gran Pct Auto 0.4 % (0.0-0.4); Lymphocytes Absolute Auto 1.4 X10*3/uL (1.2-4.9); Lymphocytes Percent Auto 19.3 % (20-40); Mean Corpuscular HGB Conc 33.7 g/dl (31.0-36.0); Mean Corpuscular Hemoglobin 30.2 pg (27.0-33.0); Mean Corpuscular Volume 89.6 fL (80.0-98.0); Mean Platelet Volume 9.6 fL (9.4-12.4); Monocytes Absolute Auto 0.3 X10*3/uL (0.1-1.2); Monocytes Percent Auto 4.4 % (2-11); Neutrophils Absolute Auto 5.2 x10*3/uL (2.0-8.3); Neutrophils Percent Auto 73.8 % (45-73); Platelet Count 288 X10*3/uL (160-400); Red Cell Distribution Width 13.3 % (11.0-16.0)
[2024-05-17 11:24] LABS: Anion Gap 13 (12-20); Blood Urea Nitrogen 24 mg/dL (9-16); Carbon Dioxide 23 mmol/L (22-29); Chloride 107 mmol/L (96-108); Estimated Glomerular Filt Rate 37; Potassium 4.7 mmol/L (3.3-5.1); Sodium 138 mmol/L (135-145)
[2024-05-17 12:24] LABS: Creatinine Urine 129.11 mg/dL; Protein/Creatinine Ratio, Ur 0.43 (<0.2); Total Protein Urine Random 55 mg/dL (<12)
== END 2024-05-17 08:40 | disposition home or self-care (01) ==
LOC: HO.LAB 08:39
PROVIDERS: Internal Medicine Hypertension Specialist; PCP Internal Medicine; Visit Provider Internal Medicine Nephrology
DX: N28.1 Cyst of kidney, acquired (principal); N18.31 Chronic kidney disease, stage 3a; I10 Essential (primary) hypertension; Z90.5 Acquired absence of kidney
CPT/HCPCS: 36415; 80051; 82565; 82570; 84156; 84520; 85025

== ENCOUNTER 2024-05-24 11:39 | Outpatient (AMB) | payer OTHER, SELFPAY ==
[2024-05-24 12:13] VITALS: BP 142/82; PULSE 72; O2SAT 93; BMI 36.6
--- NOTE | 2024-05-24 12:13 | HO.NEPHOV ---
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 He has history of prostate cancer in 2019 which has been treated with external radiation beam therapy. Subsequently was found to have right renal mass and underwent right nephrectomy. He now has a nonmalignant cystic lesion on the left kidney. He was known to have lung nodules which are not metastatic lesions. He has no B symptoms. He closely follows up with Dr. Billy. He does not have any hematuria, dysuria, flank pain, night sweats, weight loss, fever. His serum creatinine had been going up. He does not take nonsteroidal anti-inflammatories on a regular basis. He is known to be hypertensive. He has not a diabetic. He denies chest pain, shortness of breath, paroxysmal nocturnal dyspnea, orthopnea, pedal edema, epistaxis, hemoptysis, photosensitivity, skin rashes, recurrent sinusitis, sore throat, new bone or back pain. He has no history of hepatitis. He had a biopsy of the lesion on the solitary kidney which was found to be benign. His serum creatinine is marginally better. He has been having cough from lisinopril and he stopped it. [facility] [facility] Medical History Benign neoplasm of unspecified kidney Personal history of malignant neoplasm of renal pelvis Personal history of malignant neoplasm of prostate Nocturia Benign prostatic hyperplasia with lower urinary tract symptoms Surgical History H/O total adrenalectomy History of nephrectomy, right History of tonsillectomy Family History Mother Hypertension Father Hypertension Leukemia Prostate cancer Social History Alcohol intake: current Comment: Rare Patient Tobacco Use Status: Never used Tobacco Review of Systems Const All systems reviewed & are unremarkable except as noted in HPI and below Physical Exam Vital Signs: Last Vital Signs Pulse 72 05/24/24 12:13 BP 142/82 H 05/24/24 12:13 Pulse Ox 93 05/24/24 12:13 Oxygen Delivery Method Room Air 05/24/24 12:13 BMI result Body Mass Index 36.6 Const General: comfortable and no acute distress Orientation/consciousness: patient oriented x3 HEENT Head: Yes normocephalic Mouth: Normal oral and palatal mucosa present Eyes EOM: EOMs intact bilaterally Neck Neck: Yes supple Resp Auscultation: clear to auscultation bilaterally Cardio Jugular venous distension: no JVD Rate: regular rate GI Palpation (GI): Soft to palpation Auscultation: normal bowel sounds General: Yes no CVA tenderness Back/Spine/Pelvis Back: no CVA tenderness Skin General skin exam: no rashes or lesions noted Neuro General: patient oriented x3 and moves all extremities Extrem General: Yes no pedal edema Results Reviewed Nephrology Results: Hgb 14.2 g/dl (14.0-18.0) 05/17/24 WBC 7.0 X10*3/uL (4.8-10.8) 05/17/24 Plt Count 288 X10*3/uL (160-400) 05/17/24 Sodium 138 mmol/L (135-145) 05/17/24 Potassium 4.7 mmol/L (3.3-5.1) 05/17/24 Chloride 107 mmol/L (96-108) 05/17/24 Carbon Dioxide 23 mmol/L (22-29) 05/17/24 BUN 24 mg/dL (9-16) H 05/17/24 Creatinine 1.82 mg/dL (0.5-1.4) H 05/17/24 Calcium 9.1 mg/dL (8.4-10.2) 12/04/23 Urine Creatinine 129.11 mg/dL 05/17/24 Protein/Creatinin Ratio 0.43 (<0.2) H 05/17/24 Assessment & Plan Assessment & Plan (1) Renal cyst, acquired, left: Code(s): N28.1 - Cyst of kidney, acquired Category: Medical (2) Solitary kidney, acquired: Code(s): Z90.5 - Acquired absence of kidney Category: Medical (3) Hypertension: Code(s): I10 - Essential (primary) hypertension Category: Medical Qualifiers: Hypertension type: primary hypertension Qualified Code(s): I10 - Essential (primary) hypertension (4) CKD (chronic kidney disease) stage 3, GFR 30-59 ml/min: Code(s): N18.30 - Chronic kidney disease, stage 3 unspecified Category: Medical Qualifiers: Chronic kidney disease stage 3 subtype: stage 3a (GFR 45-59) Qualified Code(s): N18.31 - Chronic kidney disease, stage 3a Samuel Broussard has acquired solitary kidney status post right nephrectomy for renal cell carcinoma. He has history of prostate cancer. He has no metastatic lesions. He is closely followed by Dr. Billy. He has a F/U MRI in 6 m. His urine output is good. His volume status is optimal. His blood pressure is not at goal. I started him back on losartan 25 mg daily. He does not have any renal artery stenosis by imaging. His last creatinine clearance was 75 mL/minute prior to this OLIVIA. He should maintain good hydration and avoid nonsteroidal anti-inflammatories. He will benefit from weight loss. I did not make any other medication changes today. All these have been discussed in detail. Further management is pending evolving data. Answered all questions. Orders: Orders Creatinine 4 Months I10 - Essential (primary) hypertension, N18.31 - Chronic kidney disease, stage 3a, Z90.5 - Acquired absence of kidney Blood Urea Nitrogen 4 Months I10 - Essential (primary) hypertension, N18.31 - Chronic kidney disease, stage 3a, Z90.5 - Acquired absence of kidney Electrolytes 4 Months I10 - Essential (primary) hypertension, N18.31 - Chronic kidney disease, stage 3a, Z90.5 - Acquired absence of kidney Medications: New losartan 25 mg PO DAILY 90 tabs 3RF Changed From carvedilol must administer with a meal/food 6.25 mg PO BID 60 tabs 4RF To carvedilol must administer with a meal/food 6.25 mg PO BID 90 days 180 tabs 4RF Discontinued lisinopril Discontinued Reason: Doctor's Order 2.5 mg PO DAILY 90 tabs 3RF Coding Level of Care Code Est Pt Level 4 (47184) Diagnoses Renal cyst, acquired, left N28.1 Solitary kidney, acquired Z90.5 Primary hypertension I10 Hypertension type: primary hypertension Stage 3a chronic kidney disease N18.31 Chronic kidney disease stage 3 subtype: stage 3a (GFR 45-59)
--- OUTSIDE RECORDS SUMMARY | 2024-05-24 12:38 | XMS_ITS | Encounter Summary ---
Author Name [facility] Organization [facility] [place] Address [address] [place] [address] Care Team Providers Care Client Support Manager Name Role Phone ROSELYN PEREZ Primary [...] RE DODA WNR Oct 05, 2022 DODA [id number] [place] E[place] PATIENT MEDICARE (WNR) MEDICARE (M) PART A Feb 13, 2019 PART A [id number] [place] ERT PATIENT MEDICARE (WNR) MEDICARE (M) PART B Feb 13, 2019 PART B [id number] [place] ERT PATIENT MEDICARE (WNR) MEDICARE (M) PART A Feb 13, 2019 PART A [id number] [phone] NOEMI BREEN ERT PATIENT MEDICARE (WNR) MEDICARE (M) PART B Feb 13, 2019 PART B [id number] [phone] NOEMI BREEN ERT PATIENT MEDICARE (WNR) MEDICARE (M) PART A Feb 13, 2019 PART A [id number] NOEMI BREEN ERT PATIENT MEDICARE (WNR) MEDICARE (M) PART B Feb 13, 2019 PART B [id number] [phone] NOEMI BREEN ERT PATIENT FOR LIFE TFL* Feb 13, 2019 [id number] [place] ERT PATIENT FOR LIFE SUPPLEMEN SHAI TFL Feb 13, 2019 FOR LIFE [id number] [place] ERT PATIENT -FO R-LIFE DIREC T CARE Oct 05, 2022 FOR LIFE [id number] NOEMI BREEN ERT PATIENT Selected Encounter This section includes the information on record at [place] for the Encounter. Date/Time Encounter Type Encounter Description Reason Pro vider Source IHE Encounter Template Text not used by [place]
--- OUTSIDE RECORDS SUMMARY | 2024-05-24 12:39 | XMS_ITS | Encounter Summary ---
Author Name [facility] [place] [facility] [place] Address [address] [place] [address] Care Team Providers Care Value Analysis Coordinator Name Role Phone ROSELYN PEREZ Primary [...] RE DODA WNR Oct 05, 2022 [facility] [id number] NOEMI BREEN ERT PATIENT MEDICARE (WNR) MEDICARE (M) PART A Feb 13, 2019 PART A [id number] HUNTER[place]I [place] ERT PATIENT MEDICARE (WNR) MEDICARE (M) PART B Feb 13, 2019 PART B [id number] NOEMI BREEN ERT PATIENT MEDICARE (WNR) MEDICARE (M) PART A Feb 13, 2019 PART A [id number] [phone] NOEMI BREEN ERT PATIENT MEDICARE (WNR) MEDICARE (M) PART B Feb 13, 2019 PART B [id number] [phone] NOEMI BREEN ERT PATIENT MEDICARE (WNR) MEDICARE (M) PART A Feb 13, 2019 PART A [id number] NOEMI BREEN ERT PATIENT MEDICARE (WNR) MEDICARE (M) PART B Feb 13, 2019 PART B [id number] NOEMI BREEN ERT PATIENT FOR LIFE TFL* Feb 13, 2019 [id number] [phone] NOEMI BREEN ERT PATIENT FOR LIFE SUPPLEMEN SHAI TFL Feb 13, 2019 [facility] LIFE [id number] NOEMI BREEN ERT PATIENT -FO R-LIFE DIREC T CARE Oct 05, 2022 [facility] LIFE [id number] NOEMI BREEN ERT PATIENT Selected Encounter This section includes the information on record at [place] for the Encounter. Date/Time Encounter Type Encounter Description Reason Pro vider Source May 20, 2024 09:06 AM Outpatient Encounter ADMIN PAT ACTIVTIES (MASNONCT) [...] Appointment Type Appointme nt Facility Name May 21, 2024 01:00 PM AMBULATORY - PSYCHIATRY [facility] [place] [facility] Aug 21, 2024 01:00 PM AMBULATORY - PSYCHIATRY [facility] [place] [facility] Oct 30, 2024 02:00 PM AMBULATORY - [facility] Active, Pending, and Scheduled Orders [...] Date/Time Test Type Test Details Facility Name Apr 18, 2024 12:00 AM Laboratory - Chemistry Order BASIC METABOLIC PANEL (non-fasting) BLOOD (SST-SERUM) [facility] Apr 18, 2024 12:00 AM Laboratory - Chemistry Order CBC AND DIFF (AUTO) BLOOD (LAV-BLOOD) [facility] Apr 18, 2024 12:00 AM Laboratory - Chemistry Order LIPID PANEL, NON FASTING BLOOD (SST-SERUM) [facility] Apr 18, 2024 12:00 AM Laboratory - Chemistry Order TSH BLOOD (SST-SERUM) [facility] Apr 18, 2024 12:00 AM Laboratory - Chemistry Order LIVER FUNCTION BLOOD (SST-SERUM) [facility] Apr 18, 2024 12:00 AM Laboratory - Chemistry Order URINALYSIS CLEAN CATCH URINE [facility] Social History: Smoking Status (Most [...] 26, 2023 09:00 AM VA-TOBACCO FORMER USER [facility] Tobacco Use History This section includes a history of the smoking, or tobacco-related health factors, that were collected on or before the date of the Encounter. The data comes from the [place] facility where the Encounter took place. Date/Time Smoking Status/Tobacco Use Comment F acility Sep 26, 2023 09:00 AM VA-TOBACCO QUIT 15 YRS OR MORE [facility] Oct 18, 2022 03:16 PM VA-TOBACCO FORMER USER [facility] [place] [facility] Oct 18, 2022 03:16 PM VA-TOBACCO QUIT 15 YRS OR MORE [facility] Nov 12, 2021 10:30 AM VA-TOBACCO FORMER USER [facility] [place] [facility] Nov 12, 2021 10:30 AM VA-TOBACCO QUIT 5 TO < 15 YRS [facility] [place] [facility] Oct 01, 2020 11:02 AM VA-TOBACCO FORMER USER [facility] [place] [facility] Oct 01, 2020 11:02 AM VA-TOBACCO QUIT 15 YRS OR MORE [facility] [place] [facility] Oct 25, 2019 11:30 AM VA-TOBACCO FORMER USER [facility] [place] [facility] Oct 25, 2019 11:30 AM VA-TOBACCO QUIT 5 TO < 15 YRS [facility] [place] [facility] Sep 07, 2018 09:43 AM VA-TOBACCO FORMER USER [facility] [place] [facility] Sep 07, 2018 09:43 AM VA-TOBACCO QUIT 5 TO < 15 YRS [facility] [place] [facility] Apr 25, 2018 02:08 PM VA-TOBACCO USE DEC LINED TO ANSWER [facility] [place] [facility] Radiology Reports: +/- 30 days of [...] the Encounter. The data comes from all [place] treatment facilities. Date/Time Radiology Report Provider Source Apr 24, 2024 01:31 PM LDCT INCIDENTAL PULMONARY NODULE: NAINA BREEN [id number] -[id number] M Exm Date: APR 24, 2024@13:31 Req Phys: ISABELA ASENCIO Loc: [facility] PACT 2 MD (Req'g Loc) Img Loc: [facility]/CT Service: Unknown [facility] [place] [facility] [place] [id number] (Case [id number] COMPLETE) LDCT INCIDENTAL PULMONARY NODULE (CT Detailed) CPT:69867 Reason for Study: look for cancer Clinical History: Report Status: Verified Date Reported: APR 24, 2024 Date Verified: APR 29, 2024 Signal Maintainer E-Sig:/ES/MIGUEL ANGEL GILL, RTR Report: Study: Lung cancer screening CT of the chest. Provided History: Lung cancer screening. Comparison: CT scan the chest from October 25, 2023, July 26, 2023 and March 23, 2021. Technique: 1 mm lung algorithm and 3 mm soft tissue algorithm axial reconstructions from the lung apices through the lung bases without the administration of intravenous contrast as per standard department protocol for lung cancer screening. Subsequently, sagittal and coronal reformats were generated. MIP images also provided and reviewed. Secondary computer-aided detection with post-processing from [employer] is used. The lack of intravenous contrast inherently limits the evaluation of hilar structures, vascular structures, and abnormal enhancement patterns. Lower than standard dose was utilized limiting sensitivity for fine parenchymal detail. Dose Parameters: CTDI(vol): 3.3 mGy. DLP: 121.6 mGy*cm. Findings: Lungs: Emphysema: Mild scattered bullous emphysematous changes with associated scattered parenchymal scarring is unchanged. Index Nodule: New 5.7 mm solid, ovoid shape but irregularly marginated right upper lobe pulmonary nodule, 10-127. Other Nodules: New 2.2 mm solid, round, well-circumscribed right upper lobe pulmonary nodule, 8-143. Stable 3.6 mm solid, ovoid, irregularly marginated right lower lobe pulmonary nodule, 8-248. Stable 4.9 mm solid, round, well-circumscribed left lower lobe pulmonary nodule, 10-297 which was previously smaller in size. Lungs/airway findings: Multiple scattered bilateral punctate calcified granulomata are again seen. No acute pulmonary process or pleural effusion is identified. There are mild dependent changes present at the lung bases. The tracheobronchial tree is patent and normal. Heart, mediastinum and lymph nodes: The heart size is normal. No pericardial effusion identified. Normal caliber thoracic aorta. No mediastinal or hilar lymphadenopathy by [...] This area was not imaged on the [address] but appears unchanged from comparison CT abdomen and pelvis. The lack of interval change suggests a benign etiology. Attention on follow-up imaging can be performed. Bones and soft tissues: Again status post right shoulder hemiarthroplasty. Normal age-related degenerative changes present. No acute bony abnormality identified. Other findings: None. Impression: New 5.7 mm irregularly-shaped solid nodule within the right upper lobe patient with prior waxing and waning of pulmonary nodules. Lung-RADS Assessment: Category 3, probably benign. Recommendation: Lung cancer screening CT in 6 months. Other Significant Findings and Recommendations: None. Primary Diagnostic Code: No immediate attention required Secondary Diagnostic Codes: LUNGRADS 3: PROBABLY BENIGN Primary Interpreting Staff: RONNIE COLMENARES JR, Radiologist VERIFIED BY: MIGUEL ANGEL GILL, RT, ORGAN PIPE FINISHER /MIGUEL ANGEL OLEA [facility] Apr 24, 2024 01:29 PM LDCT LUNG CANCER SCREENING: NAINA BREEN NARESH [id number] -1955 M Exm Date: APR 24, 2024@13:29 Req Phys: ISABELA ASENCIO Loc: [facility] PACT 2 (Req'g Loc) Img Loc: [facility]/CT Service: [place] [address] (Case [id number] COMPLETE) LDCT LUNG CANCER SCREENING (CT Detailed) CPT:35615 Reason for Study: look for cancer Clinical History: Report Status: Verified Date Reported: APR 24, 2024 Date Verified: APR 24, 2024 Signal Maintainer E-Sig:/ES/RONNIE COLMENARES JR Report: Study: Lung cancer screening CT of the chest. Provided History: Lung cancer screening. Comparison: CT scan the chest from October 25, 2023, July 26, 2023 and March 23, 2021. Technique: 1 mm lung algorithm and 3 mm soft tissue algorithm axial reconstructions from the lung apices through the lung bases without the administration of intravenous contrast as per standard department protocol for lung cancer screening. Subsequently, sagittal and coronal reformats were generated. MIP images also provided and reviewed. Secondary computer-aided detection with post-processing from [employer] is used. The lack of intravenous contrast inherently limits the evaluation of hilar structures, vascular structures, and abnormal enhancement patterns. Lower than standard dose was utilized limiting sensitivity for fine parenchymal detail. Dose Parameters: CTDI(vol): 3.3 mGy. DLP: 121.6 mGy*cm. Findings: Lungs: Emphysema: Mild scattered bullous emphysematous changes with associated scattered parenchymal scarring is unchanged. Index Nodule: New 5.7 mm solid, ovoid shape but irregularly marginated right upper lobe pulmonary nodule, 10-127. Other Nodules: New 2.2 mm solid, round, well-circumscribed right upper lobe pulmonary nodule, 8-143. Stable 3.6 mm solid, ovoid, irregularly marginated right lower lobe pulmonary nodule, 8-248. Stable 4.9 mm solid, round, well-circumscribed left lower lobe pulmonary nodule, 10-297 which was previously smaller in size. Lungs/airway findings: Multiple scattered bilateral punctate calcified granulomata are again seen. No acute pulmonary process or pleural effusion is identified. There are mild dependent changes present at the lung bases. The tracheobronchial tree is patent and normal. Heart, mediastinum and lymph nodes: The heart size is normal. No pericardial effusion identified. Normal caliber thoracic aorta. No mediastinal or hilar lymphadenopathy by [...] can be performed. Bones and soft tissues: Again status post right shoulder hemiarthroplasty. Normal age-related degenerative changes present. No acute bony abnormality identified. Other findings: None. Impression: New 5.7 mm irregularly-shaped solid nodule within the right upper lobe patient with prior waxing and waning of pulmonary nodules. Lung-RADS Assessment: Category 3, probably benign. Recommendation: Lung cancer screening CT in 6 months. Other Significant Findings and Recommendations: None. Primary Diagnostic Code: No immediate attention required Secondary Diagnostic Codes: LUNGRADS 3: PROBABLY BENIGN Primary Interpreting Staff: RONNIE COLMENARES JR, Radiologist (Signal Maintainer) /RONNIE WOLFE JR [facility] Encounter Notes: All associated encounter notes This section contains the clinical notes associated to the Encounter. Date/Time Encounter Note(s) Provider Source May 20, 2024 09:06 AM ADMINISTRATIVE NOT E: LOCAL TITLE: CCC: SCHEDULING ADMINISTRATION STANDARD TITLE: ADMINISTRATIVE NOTE DATE OF NOTE: MAY 20, 2024@09:06:54 ENTRY DATE: MAY 20, 2024@09:06:54 AUTHOR: SHWETHA PERALTA EXP COSIGNER: URGENCY: STATUS: COMPLETED CCC: SCHEDULING ADMINISTRATION Has ADDENDA Caller Verification Call Back Number: [phone] Emergency Contact: CAMILA HARRISONSELIN Emergency Contact Caller/Recipient Relation to Patient: Self Caller Name: NAINA BREEN Administrative Administrative Note Reason: Medical Equipment Request Administrative Note Comments: PT CALLED REQUESTING A CALL BACK FROM PACT IN REGARDS SLEEP C-PAP EQUIPMENT. IMPORTANT: This note was created by [facility] staff. Please do not alert the staff member by adding them as a signer for future communications. Alerts are not monitored by this user. /ta/ KEVIN STEPHENS VISN1 [facility] Signed: 05/20/2024 09:06 Receipt Acknowledged By: * AWAITING SIGNATURE * DIXIE PEPE 05/22/2024 15:42 /es/ ANGELI RAMOS LPN LPN 05/20/2024 ADDENDUM STATUS: COMPLETED requested sleep study /ta/ Dixie Pepe RN, BSN Primary Care Signed: 05/20/2024 11:04 05/22/2024 ADDENDUM STATUS: COMPLETED requested sleep study again. Phone vet and asked if he could get a copy. He will call back later /ta/ Dixie Pepe RN, BSN Primary Care Signed: 05/22/2024 09:52 SHWETHA PERALTA [facility]
--- OUTSIDE RECORDS SUMMARY | 2024-05-24 12:39 | XMS_ITS | Encounter Summary ---
Author Name [facility] [place] Organization [facility] ([place]) Address [address] [place] [address] Care Team Providers Care Ordnance Keeper Name Role Phone ROSELYN PEREZ Primary Care [...] DODA WNR Oct 05, 2022 [facility] [id number] NOEMI BARRIGA ERT PATIENT MEDICARE (WNR) MEDICARE (M) PART A Feb 13, 2019 PART A [id number] NOEMI BARRIGA ERT PATIENT MEDICARE (WNR) MEDICARE (M) PART B Feb 13, 2019 PART B [id number] NOEMI BARRIGA ERT PATIENT MEDICARE (WNR) MEDICARE (M) PART A Feb 13, 2019 PART A [id number] [phone] NOEMI BARRIGA ERT PATIENT MEDICARE (WNR) MEDICARE (M) PART B Feb 13, 2019 PART B [id number] [phone] NOEMI BARRIGA ERT PATIENT MEDICARE (WNR) MEDICARE (M) PART A Feb 13, 2019 PART A [id number] [phone] NOEMI BARRIGA ERT PATIENT MEDICARE (WNR) MEDICARE (M) PART B Feb 13, 2019 PART B [id number] NOEMI BARRIGA ERT PATIENT FOR LIFE TFL* Feb 13, 2019 [id number] NOEMI BARRIGA ERT PATIENT FOR LIFE SUPPLEMEN SHAI TFL Feb 13, 2019 FOR LIFE [id number] NOEMI BARRIGA ERT PATIENT -FO R-LIFE DIREC T CARE Oct 05, 2022 [facility] LIFE [id number] NOEMI BARRIGA ERT PATIENT Selected Encounter This section includes the information on record at [place] for the Encounter. Date/Time Encounter Type Encounter Description Reason Provider Source May 20, 2024 04:18 PM Outpatient Encounter PRIMARY CARE/MEDICINE NITISH ASENCIO Encounter Template Text not used by [place] Plan of Treatment: Future Appointments (+ 6 months) and Future Tests (+/- 45 days) The Plan of Treatment section includes [facility] the [facility] This section includes future appointments and future orders which are active, pending or scheduled. Future Appointments This section includes appointments that were scheduled to occur 6 months from the date of the Encounter, up to a maximum of 20 appointments. The data comes from all [facility]. Appointment Date/Time Appointment Type Appointme nt Facility Name May 21, 2024 01:00 PM AMBULATORY - PSYCHIATRY [facility] Aug 21, 2024 01:00 PM [facility] Oct 30, 2024 02:00 PM AMBULATORY - MEDICINE [facility] Active, Pending, and Scheduled Orders This section includes a listing of several types of active, pending, and scheduled orders, including clinic medications orders, diagnostic test orders, procedure orders and consult orders; where the start date of the order is 45 days before the date of the Encounter or 45 days after the date of theEncounter. The data comes from all [place] treatment facilities. Test Date/Time Test Type Test Details Facility Name Apr 18, 2024 12:00 AM Laboratory - Chemistry Order BASIC METABOLIC PANEL (non-fasting) BLOOD (SST-SERUM) [facility] Apr 18, 2024 12:00 AM Laboratory - Chemistry Order CBC AND DIFF (AUTO) BLOOD (LAV-BLOOD) [facility] Apr 18, 2024 12:00 AM Laboratory - Chemistry Order LIPID PANEL, NON FASTING BLOOD (SST-SERUM) [facility] Apr 18, 2024 12:00 AM Laboratory - Chemistry Order TSH BLOOD (SST-SERUM) [facility] Apr 18, 2024 12:00 AM Laboratory - Chemistry Order LIVER FUNCTION BLOOD (SST-SERUM) [facility] Apr 18, 2024 12:00 AM Laboratory - Chemistry Order URINALYSIS CLEAN CATCH URINE [facility] Social History: Smoking Status (Most current) and Tobacco Use (All prior to encounter date) This section includes the most current, and the historical, smoking and tobacco- related health factors from the [place] facility where the Encounter took place. Current Smoking Status This section includes the most current smoking, or tobacco-related health factor, from the [place] facility where the Encounter took place. Date/Time Current Smoking Status Comment Facil ity Sep 26, 2023 09:00 AM IN-TOBACCO QUIT 15 YRS OR MORE [facility] Tobacco Use History This section includes a history of the smoking, or tobacco-related health factors, that were collected on or before the date of the Encounter. The data comes from the [place] facility where the Encounter took place. Date/Time Smoking Status/Tobacco Use Comment F acility Sep 26, 2023 09:00 AM VA-TOBACCO QUIT 15 YRS OR MORE [facility] Oct 18, 2022 03:16 PM VA-TOBACCO FORMER USER IN [facility] [place] [facility] Oct 18, 2022 03:16 PM VA-TOBACCO QUIT 15 YRS OR MORE [facility] Nov 12, 2021 10:30 AM VA-TOBACCO FORMER USER [facility] [place] [facility] Nov 12, 2021 10:30 AM VA-TOBACCO QUIT 5 TO < 15 YRS [facility] [place] [facility] Oct 01, 2020 11:02 AM VA-TOBACCO FORMER USER [facility] [place] [facility] Oct 01, 2020 11:02 AM VA-TOBACCO QUIT 15 YRS OR MORE [facility] [place] [facility] Oct 25, 2019 11:30 AM VA-TOBACCO FORMER USER [facility] [place] [facility] Oct 25, 2019 11:30 AM VA-TOBACCO QUIT 5 TO < 15 YRS [facility] [place] [facility] Sep 07, 2018 09:43 AM VA-TOBACCO FORMER USER [facility] [place] [facility] Sep 07, 2018 09:43 AM VA-TOBACCO QUIT 5 TO < 15 YRS [facility] [place] [facility] Apr 25, 2018 02:08 PM VA-TOBACCO USE DEC LINED TO ANSWER IN [facility] [place] [facility] Radiology Reports: +/- 30 days of the [...] the Encounter. The data comes from all [place] treatment facilities. Date/Time Radiology Report Provider Source Apr 24, 2024 01:31 PM LDCT INCIDENTAL PULMONARY NODULE: NAINA BARRIGA NARESH [id number] -1955 M Exm Date: APR 24, 2024@13:31 Req Phys: NITISH ASENCIO Loc: [facility] PACT 2 MD (Req'g Loc) Img Loc: [facility]/CT Service: Unknown IN [facility] [place] [facility] RA MAURICIO [id number] (Case [id number] COMPLETE) LDCT INCIDENTAL PULMONARY NODULE (CT Detailed) CPT:59766 Reason for Study: look for cancer Clinical History: Report Status: Verified Date Reported: APR 24, 2024 Date Verified: APR 29, 2024 Event Manager E-Sig:/ES/MIGUEL ANGEL JOCELYN ROMANOVICZ, RTR Report: Study: Lung cancer screening CT [...] reviewed. Secondary computer-aided detection with post-processing from [employer] is used. The lack of intravenous contrast [...] COLMENARES JR, Radiologist VERIFIED BY: MIGUEL ANGEL GILL RT, SPA ASSISTANT MANAGER /MIGUEL ANGEL [facility] Apr 24, 2024 01:29 PM LDCT LUNG CANCER SCREENING: NAINA BARRIGA [id number] -1955 M Exm Date: APR 24, 2024@13:29 Req Phys: NITISH ASENCIO Loc: [facility] PACT 2 MD (Req'g Loc) Img Loc: [facility]/CT Service: [place] [address] (Case [id number] COMPLETE) LDCT LUNG CANCER SCREENING (CT Detailed) CPT:45057 Reason for Study: look for cancer Clinical History: Report Status: Verified Date Reported: APR 24, 2024 Date Verified: APR 24, 2024 Event Manager E-Sig:/ES/RONNIE COLMENARES JR Report: Study: Lung cancer [...] reviewed. Secondary computer-aided detection with post-processing from [employer] is used. The lack of intravenous contrast [...] Primary Interpreting Staff: RONNIE COLMENARES JR, Radiologist (Event Manager) /RONNIE WOLFE JR [facility] Encounter Notes: All associated encounter notes This section contains the clinical notes associated to the Encounter. Date/Time Encounter Note(s) Provider Source May 20, 2024 05:07 PM PRIMARY CARE SECUR E MESSAGING: LOCAL TITLE: PRIMARY CARE SECURE MESSAGING STANDARD TITLE: PRIMARY CARE SECURE MESSAGING DATE OF NOTE: MAY 20, 2024@17:07 ENTRY DATE: MAY 20, 2024@17:07:18 AUTHOR: NITISH ASENCIO EXP COSIGNER: URGENCY: STATUS: COMPLETED ------Original Message -------- Sent: 05/20/2024 04:39 PM ET From: NAINA BARRIGA To: [facility] Subject: General:Cpac Ok I understand, I'll wait to hear from you /ta/ Nitish Asencio MD Staff Physician Signed: 05/20/2024 17:07 NITISH ASENCIO [facility] May 20, 2024 04:18 PM PRIMARY CARE SECUR E MESSAGING: LOCAL TITLE: PRIMARY CARE SECURE MESSAGING STANDARD TITLE: PRIMARY CARE SECURE MESSAGING DATE OF NOTE: MAY 20, 2024@16:18 ENTRY DATE: MAY 20, 2024@16:18:48 AUTHOR: NITISH ASENCIO EXP COSIGNER: URGENCY: STATUS: COMPLETED ------Original Message -------- Sent: 05/20/2024 09:40 AM ET From: NAINA BARRIGA To: [facility] Subject: General:Cpac dr Asencio - I was just wondering if you rec'd results of my sleep study (I went to on May 03 ) and what is the next step. Thank you Naina barriga ------Original Message -------- Sent: 05/20/2024 04:18 PM ET From: NITISH ASENCIO To: NAINA BARRIGA Subject: General:Cpac I have not received it. I will let you know as soon as I receive it. /ta/ Nitish Asencio MD Staff Physician Signed: 05/20/2024 16:18 NITISH ASENCIO IN [facility]
--- OUTSIDE RECORDS SUMMARY | 2024-05-24 12:39 | XMS_ITS | Continuity of Care Document ---
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, 2021 Entered By: ALCIDES CRAWFORD Comment: distal right, 1.9cm, f/u pelvic CT due Feb 2022 [facility] Aneurysm of iliac artery Active Condition [facility] Anxiety (SCT [id number]) Active Condition [facility] 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, 2019 Entered By: ALCIDES CRAWFORD Comment: removed age 39 [facility] 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, 2021 Entered By: ROSELYN PEREZ Comment: nephrectomy, right, approx 2019 [facility] 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, 2021 Entered By: ROSELYN PEREZ Comment: radiation tx, approx 2019 [facility] Episodic paroxysmal anxiety disorder Active Condition [facility] Erectile dysfunction Active Condition [facility] Erectile Dysfunction (SCT [id number]) Active Condition [facility] Exposure to potentially hazardous substance ([facility] [id number]) Active Condition May 23 4 Entered By: TOI TODD Comment: Entered automatically through [facility]RIAN Problem List documentation program [facility] KAIA - Generalised anxiety disorder Active Condition [facility] HTN - Hypertension (SCT [id number]) Active Condition [facility] Hyperlipidemia (SCT 55418217) Active Condition [facility] Multiple nodules of lung Active Condition [facility] Nocturia Active Condition [facility] Pain in left knee Active Condition [facility] [place] [facility] Polyp Colon (SCT 25676126) Active Condition Jan 29, 2019 Entered By: ALCIDES CRAWFORD Comment: c-scope 10/26/11 f/u in 10yrs (2021) [facility] Polyp Colon (SCT [id number]) Active Condition [facility] Prostate Cancer (SCT [id number]) Active Condition [facility] Renal cell carcinoma Active Condition June 14, 2021 Entered By: ALCIDES CRAWFORD Comment: right nephrectomy May [address] Billy [facility] Renal cyst Active Condition [facility] Tinnitus Active Condition [facility] Tobacco dependence in remission Active Condition [facility] Diagnosis: ICD-10-CM F41.9 Anxiety disorder, unspecified Active Diagnosis [facility] Diagnosis: ICD-10-CM I10 Essential (primary) hypertension Active Diagnosis [facility] Diagnosis: ICD-10-CM R41.3 Other amnesia Active Diagnosis [facility] KYM AVILA [facility] Diagnosis: ICD-10-CM I69.911 Memory deficit following unspecified cerebrovascular disease Active Diagnosis [facility] Diagnosis: ICD-10-CM I69.211 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 Active Diagnosis [facility] Diagnosis: ICD-10-CM M19.012 Primary osteoarthritis, left shoulder Active Diagnosis [facility] Diagnosis: ICD-10-CM M25.512 Pain in left shoulder Active Diagnosis [facility] KYM AVILA [facility] Diagnosis: ICD-10-CM Z46.0 Encounter for fit/adjst of spectacles and contact lenses Active Diagnosis [facility] Diagnosis: ICD-10-CM Z23 Encounter for immunization Active Diagnosis [facility] KMY [facility] Diagnosis: ICD-10-CM Z13.6 Encounter for screening for cardiovascular disorders Active Diagnosis [facility] Medications Combined list of outpatient medications [...] WITH GRAPEFRU IT JUICE ORAL ACTIVE 01/22/2025 [id number] DONNA ASENCIO 2023 90 [facility] ISMAELMagen RAMIREZU SETS [facility] AMLODIPINE BESYLATE 10MG TAB TAKE ONE TABLET BY MOUTH ONCE DAILY FOR BLOOD PRESSURE /HEART, DO NOT TAKE WITH GRAPEFRU IT JUICE ORAL DISCONT INUED 12/21/2023 [id number] DONNA ASENCIO 2022 90 [facility] KYM RAMIREZU SETS [facility] ARIPIPRAZOL E 20MG TAB TAKE ONE-HALF TABLET BY MOUTH ONCE DAILY FOR MOOD/DEP RESSION ORAL ACTIVE 03/20/2025 [id number] ELISA DOTSON 2024 45 [facility] [place] [facility] ARIPIPRAZOL E 20MG TAB TAKE ONE-HALF TABLET BY MOUTH ONCE DAILY MOOD ORAL DISCONT INUED (EDIT) 11/09/2024 [id number] 5 JAKUB MESA MD 2023 15 [facility] ARIPIPRAZOL E 20MG TAB TAKE ONE-HALF TABLET BY MOUTH ONCE DAILY MOOD ORAL DISCONT INUED (EDIT) 07/26/2024 [id number] JAKUB MESA MD 2023 15 [facility] ARIPIPRAZOL E 20MG TAB TAKE ONE-HALF TABLET BY MOUTH ONCE DAILY MOOD ORAL DISCONT INUED (EDIT) 04/28/2024 [id number] 4 JAKUB MESA MD 2023 15 [facility] ARIPIPRAZOL E 20MG TAB TAKE ONE-HALF TABLET BY MOUTH ONCE DAILY MOOD ORAL DISCONT INUED (EDIT) 01/28/2024 [id number] JAKUB MESA MD 2022 15 [facility] [place] ATORVASTATI N CA 80MG TAB TAKE ONE-HALF TABLET BY MOUTH AT BEDTIME ORAL ACTIVE 01/10/2025 [id number] 5 DONNA ASENCIO CHARLES D 2023 45 [facility] ATORVASTATI N CA 80MG TAB TAKE ONE-HALF TABLET BY MOUTH AT BEDTIME ORAL DISCONT INUED 12/21/2023 [id number] 4 DONNA ASENCIO CHARLES D 2022 45 [facility] CARVEDILOL 6.25MG TAB TAKE ONE TABLET BY MOUTH TWICE DAILY WITH FOOD ORAL ACTIVE 12/20/2024 [id number] DONAL GUADALUPE JAMES 2023 60 [facility] DICLOFENAC NA 1% GEL,TOP APPLY 2 GRAMS TOPICALL Y THREE TIMES DAILY NEEDED DIRECTED FOR LEFT SHOULDER PAIN - USE DOSING CARD PROVIDED IN BOX TOPICA L 03/21/2024 [id number] DONNA ASENCIO CHARLES D 2023 100 [facility] LISINOPRIL 2.5MG TAB TAKE ONE TABLET BY MOUTH ONCE DAILY TO CONTROL BLOOD PRESSURE ORAL ACTIVE 02/21/2025 [id number] 5 ANAYELIDONAL JAMES 2024 90 [facility] [place] [place] 25MG TAB TAKE ONE TABLET BY MOUTH ONCE DAILY FOR BLOOD PRESSURE /HEART ORAL 12/21/2023 [id number] DONNA ASENCIO CHARLES D 2022 90 [facility] [place] MULTIVITAMI NS CAP/TAB TAKE ONE TABLET BY MOUTH ONCE DAILY ORAL ACTIVE ALCIDES CRAWFORD 2018 [facility] [place] OTHER CAP/TAB TAKE AREDS EYE VITAMINS BY MOUTH ONCE DAILY ORAL ACTIVE ALCIDES CRAWFORD [facility] [place] [facility] VENLAFAXINE HCL 75MG 24HR CAP,SA TAKE ONE CAPSULE BY MOUTH ONCE DAILY DEPRESSI ON/ ANXIETY ORAL ACTIVE 03/20/2025 [id number] 5 ELISA DOTSON 2024 90 [facility] [place] [facility] VENLAFAXINE HCL 75MG 24HR CAP,SA TAKE ONE CAPSULE BY MOUTH ONCE DAILY DEPRESSI ON/ ANXIETY ORAL DISCONT INUED 11/09/2024 [id number] 5 JAKUB MESA MD 2023 30 [facility] [place] [facility] VENLAFAXINE HCL 75MG 24HR CAP,SA TAKE ONE CAPSULE BY MOUTH ONCE DAILY DEPRESSI ON/ ANXIETY ORAL DISCONT INUED (EDIT) 07/26/2024 [id number] 4 JAKUB MESA MD 2023 30 [facility] [place] [facility] VENLAFAXINE HCL 75MG 24HR CAP,SA TAKE ONE CAPSULE BY MOUTH ONCE DAILY DEPRESSI ON/ ANXIETY ORAL DISCONT INUED (EDIT) 04/28/2024 [id number] 4 JAKUB MESA MD 2023 30 [facility] VENLAFAXINE HCL 75MG 24HR CAP,SA TAKE ONE CAPSULE BY MOUTH ONCE DAILY ORAL DISCONT INUED (EDIT) 01/28/2024 [id number] 4 JAKUB MESA MD 2022 30 [facility] Allergies, Adverse Reactions, Alerts Combined list of allergies from 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 It does not include entries that were removed or entered in error. Substance Category Reaction Severity Reaction type Status Date Reported Comments Source LISINOPRIL Propensity to adverse reactions to drug (finding) Cough active 9 [facility] [place] [facility] METOPROLOL Propensity to adverse reactions to drug (finding) Dizziness active [facility] PERCOCET Propensity to adverse reactions to drug (finding) Urticaria active 9 [facility] [place] [facility] Immunizations Combined list of available immunizations from the 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 Immunization Series Date Given Administered By Site Reaction Lot Number CVX Code Drug Senior Genetic Counselor Status Comments Source COVID-19 (MODERNA), MRNA, LNP-S, PF, 50 MCG/0.5 ML (AGES 12+ YEARS) 6 2023 ZHEN RAMOS RIGHT DELTO ID [id number] 312 complet ed [facility] INFLUENZA, HIGH-DOSE, TRIVALENT, PF 2023 ZHEN RAMOS RIGHT DELTO ID [id number] 135 complet ed Completed Series, [facility] COVID-19 (MODERNA), MRNA, LNP-S, PF, 50 MCG/0.5 ML (AGES 12+ YEARS) 5 2023 ZHEN RAMOS RIGHT DELTO ID [id number] 312 complet ed [facility] INFLUENZA, HIGH-DOSE, QUADRIVALENT 2022 VIVIANE FARIAS LEFT DELTO ID [id number] 197 complet ed Completed Series, [facility] [place] [facility] TDAP 2022 VIVIANE FARIAS RIGHT DELTO ID [id number] 115 complet ed Completed Series, [facility] [place] COVID-19 (MODERNA), MRNA, LNP-S, PF, 50 MCG/0.5 ML (AGES 12+ YEARS) 2022 ALISSON GALLO M LEFT DELTO ID [id number] 312 complet ed [facility] [place] PNEUMOCOCCAL CONJUGATE PCV20, POLYSACCHARID E [id number] CONJUGATE, ADJUVANT, PF 2022 ALISSON GALLO M LEFT DELTO ID [id number] 216 complet ed [facility] [place] [facility] [facility] RSV, BIVALENT, PROTEIN SUBUNIT RSVPREF, DILUENT RECONSTITUTED , 0.5 ML, PF 2022 ALISSON GALLO M RIGHT DELTO ID [id number] 305 complet ed [facility] [place], [id number] [facility] [place] INFLUENZA VACCINE, QUADRIVALENT, ADJUVANTED 2021 205 complet ed [place] INFLUENZA, UNSPECIFIED FORMULATION 2021 88 complet ed HISTORICA L INFORMATI ON - FROM OTHER REGISTRY, [facility] [place] [facility] COVID-19 (MODERNA), MRNA, LNP-S, PF, 100 MCG OR 50 MCG DOSE 3 2020 207 complet ed [facility] COVID-19 (MODERNA), MRNA, LNP-S, PF, 100 MCG/0.5 ML DOSE 2 2020 207 complet ed [facility] [place] COVID-19 (MODERNA), MRNA, LNP-S, PF, 100 MCG/0.5 ML DOSE 1 2020 207 complet ed [facility] [place] [facility] INFLUENZA, UNSPECIFIED FORMULATION 2019 88 complet ed [facility] [place] [facility] PNEUMOCOCCAL POLYSACCHARID E PPV23 2019 33 complet ed [facility] [place] [facility] ZOSTER RECOMBINANT 2 2019 187 complet ed [facility] [place] [facility] [facility] ZOSTER RECOMBINANT 1 2018 187 complet ed [facility] [place] [facility] [facility] INFLUENZA, SEASONAL, INJECTABLE 2018 141 complet ed [facility] [place] [facility] TDAP 2011 115 complet ed [facility] [place] [facility] TD (ADULT) 2011 RIGHT DELTO ID 138 complet ed HISTORICA L INFORMATI ON - FROM OTHER REGISTRY, tetanus toxoid, adsorbed- [facility]/DOD Lot#: [id number] Mfr: SANOFI PASTEUR [facility] TYPHOID, VICPS 2011 RIGHT DELTO ID 101 complet ed HISTORICA L INFORMATI ON - FROM OTHER REGISTRY, typhoid Vi capsular polysacch aride vaccine-J /DOD Lot#: [id number] Mfr: SANOFI PASTEUR [facility] HEP B, ADULT 1 2011 LEFT ARM 43 complet ed HISTORICA L INFORMATI ON - FROM OTHER REGISTRY, hepatitis B vaccine, adult dosage-[facility]/DOD Lot#: [id number] B [facility] [place] TD (ADULT), 2 LF TETANUS TOXOID, PRESERVATIVE FREE, ADSORBED 2005 09 complet ed HISTORICA L INFORMATI ON - FROM OTHER REGISTRY, tetanus and diphtheri a toxoids, adsorbed, preservat tracie free, for adult use (2 Lf of tetanus toxoid and 2 Lf of diphtheri a toxoid) Lot#: [id number] Mfr: SANOFI PASTEUR [facility] ANTHRAX 5 2003 24 complet ed HISTORICA L INFORMATI ON - FROM OTHER REGISTRY, [facility]/DOD Lot#: [id number] [facility] MMR 2 2002 LEFT ARM 03 complet ed HISTORICA L INFORMATI ON - FROM OTHER REGISTRY, V/DOD Lot#: [id number] Mfr: [employer] [facility] [place] [facility] ANTHRAX 4 2002 LEFT ARM 24 complet ed HISTORICA L INFORMATI ON - FROM OTHER REGISTRY, [facility] Lot#: [id number] [facility] [place] [facility] ANTHRAX 3 2002 24 complet ed HISTORICA L INFORMATI ON - FROM OTHER REGISTRY, [facility] Lot#: [id number] [facility] [place] [facility] VACCINIA (SMALLPOX) 2 2002 LEFT ARM 75 complet ed HISTORICA L INFORMATI ON - FROM OTHER REGISTRY, [facility] Lot#: [id number] Mfr: VEDA RST [facility] [place] [facility] ANTHRAX 2 2002 LEFT ARM 24 complet ed HISTORICA L INFORMATI ON - FROM OTHER REGISTRY, [facility] Lot#: [id number] [facility] [place] [facility] ANTHRAX 1 2001 RIGHT ARM 24 complet ed HISTORICA L INFORMATI ON - FROM OTHER REGISTRY, [facility] Lot#: [id number] [facility] HEP A, ADULT 2 1998 52 complet ed HISTORICA L INFORMATI ON - FROM OTHER REGISTRY, hepatitis A vaccine, adult dosage-[facility] Lot#: [id number] Mfr: [employer] [facility] [place] [facility] HEP A, ADULT 1 1998 52 complet ed HISTORICA L INFORMATI ON - FROM OTHER REGISTRY, [facility] Lot#: [id number] Mfr: [employer] [facility] [place] [facility] [facility] MENINGOCOCCAL MPSV4 1 1998 32 complet ed HISTORICA L INFORMATI ON - FROM OTHER REGISTRY, meningoco ccal polysacch aride vaccine (MPSV4) [facility] MMR 1 1998 03 complet ed HISTORICA L INFORMATI ON - FROM OTHER REGISTRY, measles, mumps and rubella virus vaccine-[facility] Lot#: [id number] Mfr: CONNAUGHT [facility] [place] [facility] [facility] YELLOW FEVER 1995 37 complet ed HISTORICA L INFORMATI ON - FROM OTHER REGISTRY, [facility]/DOD [facility] [place] [facility] Results Combined list of [...] performance characteris tics have been determined by [employer] [place]. It has not been cleared or approved by the U.S. Food and Drug Administrat ion. This assay has been validated pursuant to the CLIA regulations and is used for clinical purposes. Test Performed by [facility], [facility], [address] [place] [address] Angus Mendez M.D., Ph.D., Director of Laboratorie s , CLIA [id number] TEST PERFORMED AT: , Ordering Provider: YARIEL ASENCIO Report Released Date/Time: Sep 16, 2023 06:52 PM Reporting Lab: [facility] [place] [facility] [address] [address] Performing Lab: [facility] [place] [facility] [address] [address] [facility] [place] [facility] FOLATE (WROX) FOLATE [MASS/VOLUM E] IN SERUM OR PLASMA 9.92 ng/mL 5.2 10/01 Specimen Type: SERUM No comment entered. Ordering Provider: YARIEL ASENCIO Report Released Date/Time: Sep 16, 2023 06:52 PM Reporting Lab: [facility] [place] [facility] [address] [address] Performing Lab: [facility] [place] [facility] [address] [facility] [facility] [address] [facility] [place] [facility] TSH THYROTROPIN [UNITS/VOLU ME] IN SERUM OR PLASMA 0.78 u[IU]/ mL 0.35 - 5.00 10/01 Specimen Type: SERUM No comment entered. Ordering Provider: YARIEL ASENCIO Report Released Date/Time: Sep 16, 2023 06:52 PM Reporting Lab: [facility] [place] [facility] [address] [address] Performing Lab: [facility] [address] [facility] [place] [facility] PSA PROSTATE SPECIFIC AG [MASS/VOLUM E] IN SERUM OR PLASMA 0.53 ng/mL 0.00 - 4.00 10/01 Specimen Type: SERUM No comment entered. Ordering Provider: YARIEL ASENCIO Report Released Date/Time: Sep 16, 2023 06:52 PM Reporting Lab: [facility] [address] Performing Lab: [facility]N [facility] [address] [facility] LIPID PANEL FASTING CHOLESTEROL [MASS/VOLUM E] IN SERUM OR PLASMA 185 mg/dL 10/01 Specimen Type: SERUM No comment entered. Ordering Provider: YARIEL ASENCIO Report Released Date/Time: Sep 16, 2023 06:52 PM Reporting Lab: [facility] TRN [place] [address] Performing Lab: [facility] W[facility] [address] [facility] [place] [facility] LIPID PANEL FASTING TRIGLYCERID E [MASS/VOLUM E] IN SERUM OR PLASMA 272 mg/dL 0 - 150 10/01 H Specimen Type: SERUM No comment entered. Ordering Provider: YARIEL ASENCIO Report Released Date/Time: Sep 16, 2023 06:52 PM Reporting Lab: [facility] [place] [address] [address] Performing Lab: [facility] [address] [address] [facility] [place] [facility] LIPID PANEL FASTING CHOLESTEROL IN LDL [MASS/VOLUM E] IN SERUM OR PLASMA BY CALCULATION 96 mg/dL 0 - 129 10/01 Specimen Type: SERUM No comment entered. Ordering Provider: YARIEL ASENCIO Report Released Date/Time: Sep 16, 2023 06:52 PM Reporting Lab: [facility] [place] [facility] [address] [address] Performing Lab: [facility] [place] [facility] [address] [address] [facility] [place] [facility] LIPID PANEL FASTING CHOLESTEROL .TOTAL/CHOL ESTEROL IN HDL [MASS RATIO] IN SERUM OR PLASMA 5.3 10/01 Specimen Type: SERUM No comment entered. Ordering Provider: YARIEL ASENCIO Report Released Date/Time: Sep 16, 2023 06:52 PM Reporting Lab: [facility] W[facility]N [place] [address] Performing Lab: [facility] [place] [address] [address] [facility] [place] [facility] LIPID PANEL FASTING CHOLESTEROL IN HDL [MASS/VOLUM E] IN SERUM OR PLASMA 35 mg/dL 40 - 60 10/01 L Specimen Type: SERUM No comment entered. Ordering Provider: YARIEL ASENCIO Report Released Date/Time: Sep 16, 2023 06:52 PM Reporting Lab: [facility] [place] [address] [address] Performing Lab: [facility] [place] [address] [address] [facility] [place] [facility] LIVER FUNCTION PROTEIN [MASS/VOLUM E] IN SERUM OR PLASMA 6.9 g/dL 6.0 - 8.3 10/01 Specimen Type: SERUM No comment entered. Ordering Provider: YARIEL ASENCIO Report Released Date/Time: Sep 16, 2023 06:52 PM Reporting Lab: [facility] W[facility]N [address] [address] Performing Lab: [facility] [place] [address] [address] [facility] [place] [facility] LIVER FUNCTION ALBUMIN [MASS/VOLUM E] IN SERUM OR PLASMA 4.0 g/dL 3.5 - 5.0 10/01 Specimen Type: SERUM No comment entered. Ordering Provider: YARIEL ASENCIO Report Released Date/Time: Sep 16, 2023 06:52 PM Reporting Lab: [facility] [place] [facility] [address] [address] Performing Lab: [facility] [place] [facility] [address] [address] [facility] [place] [facility] LIVER FUNCTION ALKALINE PHOSPHATASE [ENZYMATIC ACTIVITY/VO LUME] IN SERUM OR PLASMA 86 U/L 40 - 150 10/01 Specimen Type: SERUM No comment entered. Ordering Provider: YARIEL ASENCIO Report Released Date/Time: Sep 16, 2023 06:52 PM Reporting Lab: [facility] [place] [address] [address] Performing Lab: [facility] [place] [facility] [address] [address] [facility] [place] [facility] LIVER FUNCTION ASPARTATE AMINOTRANSF ERASE [ENZYMATIC ACTIVITY/VO LUME] IN SERUM OR PLASMA 13 U/L 5 - 34 10/01 Specimen Type: SERUM No comment entered. Ordering Provider: YARIEL ASENCIO Report Released Date/Time: Sep 16, 2023 06:52 PM Reporting Lab: [facility] [place] [address] [address] Performing Lab: [facility] [place] [facility] [address] [address] [facility] [place] [facility] LIVER FUNCTION ALANINE AMINOTRANSF ERASE [ENZYMATIC ACTIVITY/VO LUME] IN SERUM OR PLASMA 21 U/L 10/01 Specimen Type: SERUM No comment entered. Ordering Provider: YARIEL ASENCIO Report Released Date/Time: Sep 16, 2023 06:52 PM Reporting Lab: [facility] [place] [address] [address] Performing Lab: [facility] [place] [facility] [address] [address] [facility] [place] [facility] LIVER FUNCTION BILIRUBIN.T OTAL [MASS/VOLUM E] IN SERUM OR PLASMA 0.8 mg/dL 0.2 - 1.2 10/01 Specimen Type: SERUM No comment entered. Ordering Provider: YARIEL ASENCIO Report Released Date/Time: Sep 16, 2023 06:52 PM Reporting Lab: [facility] [place] [facility] [address] [facility] [id number] Performing Lab: [facility] [facility] [address] [facility] [address] [facility] BASIC METABOLIC PANEL (fasting) UREA NITROGEN [MASS/VOLUM E] IN SERUM OR PLASMA 24 mg/dL 7 - 25 10/01 Specimen Type: SERUM No comment entered. Ordering Provider: YARIEL ASENCIO Report Released Date/Time: Sep 16, 2023 06:52 PM Reporting Lab: [facility] [facility] [address] [facility] [address] Performing Lab: [facility] [address] [address] [facility] BASIC METABOLIC PANEL (fasting) GLUCOSE [MASS/VOLUM E] IN SERUM OR PLASMA 99 mg/dL 65 - 100 10/01 Specimen Type: SERUM No comment entered. Ordering Provider: YARIEL ASENCIO Report Released Date/Time: Sep 16, 2023 06:52 PM Reporting Lab: [facility] [place] [facility] [address] [facility] [address] Performing Lab: [facility] [place] [address] [address] [facility] [place] [facility] BASIC METABOLIC PANEL (fasting) SODIUM [MOLES/VOLU ME] IN SERUM OR PLASMA 137 mmol/L 135 - 145 10/01 Specimen Type: SERUM No comment entered. Ordering Provider: YARIEL ASENCIO Report Released Date/Time: Sep 16, 2023 06:52 PM Reporting Lab: [facility] [place] [facility] [address] [address] Performing Lab: [facility] [place] [facility] [address] [address] [facility] BASIC METABOLIC PANEL (fasting) POTASSIUM [MOLES/VOLU ME] IN SERUM OR PLASMA 4.4 mmol/L 3.5 - 5.0 10/01 Specimen Type: SERUM No comment entered. Ordering Provider: YARIEL ASENCIO Report Released Date/Time: Sep 16, 2023 06:52 PM Reporting Lab: [facility] [place] [facility] [address] [address] Performing Lab: [facility] [address] [address] [facility] BASIC METABOLIC PANEL (fasting) CHLORIDE [MOLES/VOLU ME] IN SERUM OR PLASMA 104 mmol/L 100 - 110 10/01 Specimen Type: SERUM No comment entered. Ordering Provider: YARIEL ASENCIO Report Released Date/Time: Sep 16, 2023 06:52 PM Reporting Lab: [facility] TRN [facility]ITAL[facility] [address] [address] Performing Lab: [facility] [address] [facility]ITALRGEORGIA[facility]ERN [facility]USE [facility] BASIC METABOLIC PANEL (fasting) CARBON DIOXIDE, TOTAL [MOLES/VOLU ME] IN SERUM OR PLASMA 22 meq/L 20 - 30 10/01 Specimen Type: SERUM No comment entered. Ordering Provider: YARIEL ASENCIO Report Released Date/Time: Sep 16, 2023 06:52 PM Reporting Lab: [facility] [facility] [address] [address] Performing Lab: [facility] [address] [facility] BASIC METABOLIC PANEL (fasting) CREATININE [MASS/VOLUM E] IN SERUM OR PLASMA 1.99 mg/dL 0.50 - 1.40 10/01 H Specimen Type: SERUM No comment entered. Ordering Provider: YARIEL ASENCIO Report Released Date/Time: Sep 16, 2023 06:52 PM Reporting Lab: [facility] [place] [facility] [address] [address] Performing Lab: [facility] [place] [facility] [address] [address] [facility] [place] [facility] BASIC METABOLIC PANEL (fasting) GLOMERULAR FILTRATION RATE/1.73 SQ M.PREDICTED [VOLUME RATE/AREA] IN SERUM, PLASMA OR BLOOD BY CREATININE- BASED FORMULA (CKD-EPI 2020) 36 mL/min 60 10/01 L Specimen Type: SERUM No comment entered. Ordering Provider: YARIEL ASENCIO Report Released Date/Time: Sep 16, 2023 06:52 PM Reporting Lab: [facility] [place] [facility] [address] [address] Performing Lab: [facility] [place] [facility] [address] [address] [facility] [place] [facility] CALCIUM CALCIUM [MASS/VOLUM E] IN SERUM OR PLASMA 9.1 mg/dL 8.5 - 10.2 10/01 Specimen Type: SERUM No comment entered. Ordering Provider: YARIEL ASENCIO Report Released Date/Time: Sep 16, 2023 06:52 PM Reporting Lab: [facility] [place] [facility] [address] [address] Performing Lab: [facility] [place] [facility] [address] [address] [facility] [place] [facility] VITAMIN B12 COBALAMIN (VITAMIN B12) [MASS/VOLUM E] IN SERUM OR PLASMA 1105 pg/mL 200 - 900 10/01 H Specimen Type: SERUM No comment entered. Ordering Provider: YARIEL ASENCIO Report Released Date/Time: Sep 16, 2023 06:52 PM Reporting Lab: [facility] [place] [facility] [address] [address] Performing Lab: [facility] [place] [address] [address] [facility] [place] [facility] MICROSCOP IC AUTOMATED , URINE LEUKOCYTES [#/AREA] IN URINE SEDIMENT BY MICROSCOPY HIGH POWER FIELD 0-5/[H PF] 0 - 5 10/01 Specimen Type: URINE Comment: If Glucose = >500 and Ketones are positive, please alert the Physician. Ordering Provider: YARIEL ASENCIO Report Released Date/Time: Sep 16, 2023 06:52 PM Reporting Lab: [facility]OSPITALRSEARCY HOSPITALTRN [facility]ITALUSE[address] [address] Performing Lab: [facility]ITALUSETS [facility] [address] [address] [facility]ERN [facility]ITALUSE [facility] MICROSCOP IC AUTOMATED , URINE MUCUS [#/AREA] IN URINE SEDIMENT BY MICROSCOPY LOW POWER FIELD FEW/[L PF] 10/01 Specimen Type: URINE Comment: If Glucose = >500 and Ketones are positive, please alert the Physician. Ordering Provider: YARIEL ASENCIO Report Released Date/Time: Sep 16, 2023 06:52 PM Reporting Lab: [facility]OSPITALRSEARCY HOSPITALTRN [facility]ITALUSEM[facility] [address] [address] Performing Lab: [facility]OS[facility]ITALRSEARCY HOSPITALTRN [facility]ITALUSE[facility] [address] [address] [facility]ITALUSE [facility] MICROSCOP IC AUTOMATED , URINE ERYTHROCYTE S [#/AREA] IN URINE SEDIMENT BY MICROSCOPY HIGH POWER FIELD 0-2/[H PF] 0 - 3 10/01 Specimen Type: URINE Comment: If Glucose = >500 and Ketones are positive, please alert the Physician. Ordering Provider: YARIEL ASENCIO Report Released Date/Time: Sep 16, 2023 06:52 PM Reporting Lab: [facility]PITALRSEARCY HOSPITALTRN [facility]ITALUSE[address] [address] Performing Lab: [facility] HOSPITALRSEARCY HOSPITALTRN [facility]ITALUSE[address] [address] [facility]ITALUSE [facility] Vital Signs Combined list of inpatient and outpatient Vital Signs from Department of Defense and Veterans Affairs, ranging from 12 months to all on record, depending upon the facility. Vital Sign Value Date Comments Source SYSTOLIC BLOOD PRESSURE 138 05/01/19 25 15:01:54 [facility] [place] [facility] DIASTOLIC BLOOD PRESSURE 84 04/30/ 025 15:01:54 [facility] [place] [facility] [...] [facility] [place] [facility] RESPIRATION 16 06/20/2023 09:03:15 [facility] [place] [facility] Encounters Combined list of: 1) Encounters from Department of Veterans Affairs facilities going backup to the last 18 months, not all [place] inpatient encounters are included; 2) Encounters from the Department of [facility] facilities going backup to 280 months. Location Location Details Encounter Type Encounter Number Reason For Visit Attending Provider ADM Date DC Date Status Disposition Source [facility] [place] [facility] Outpatient Encounter [id number] 12/06 [facility] [place] [facility] Outpatient Encounter [id number] 12/07 [facility] [place] [facility] Outpatient Encounter [id number] 12/13 [facility] [place] [facility] Outpatient Encounter [id number] 12/20 [facility] Outpatient Encounter [id number] Angi IRVIN 12/20 [facility] [place] [facility] OFFICE O/P EST LOW 20-29 MIN [id number] Diagnos is: ICD-10- CM I10 Essenti al (primar y) hyperte KIRSTEN Bull RD 12/20 [place] [facility] [place] [facility] ELECTROCAR DIOGRAM REPORT [id number] Diagnos is: ICD-10- CM Z13.6 Encount er for screeni ng for cardiov ascular disorde Fany Mancilla [facility] [place] [place] [facility] Outpatient Encounter [id number] 12/22 [facility] [place] [facility] Outpatient Encounter [id number] 12/26 [facility] Outpatient Encounter [id number] Angi IRVIN 12/26 [facility] [place] [facility] OFF/OP EST MAY X REQ PHY/QHP [id number] Diagnos is: ICD-10- CM Z23 Encount er for immuniz ation VIVIANE FARAIS 12/26 [facility] [place] [facility] [place] [facility] FIT SPECTACLES MULTIFOCAL [id number] Diagnos is: ICD-10- CM Z46.0 Encount er for fit/adj st of spectac les and contact lenses INEZ GOODRICH 12/26 [facility] [place] [facility] Outpatient Encounter [id number] 12/27 [facility] [place] [facility] OFF[facility] O/P EST LOW 20-29 MIN [id number] Diagnos is: ICD-10- CM F41.9 Anxiety disorde r, unspeci Sera Powell MD 01/27 [facility] [place] [facility] [place] En[facility] [id number] 03/07 [facility] [place] [facility] [place] [facility] En[facility] [id number] 03/16 [facility] [place] [facility] [facility] [place] [facility] En[facility] [id number] 03/18 [facility] [place] [facility] [place] [facility] En[facility] [id number] 03/18 [facility] [place] [facility] [facility] [place] [facility] Encounter [id number] JOSE FRANCISCO BOO 03/20 [facility] [place] [facility] [place] [facility] OFF[facility] O/P EST LOW 20 MIN [id number] Diagnos is: ICD-10- CM M25.512 Pain in left shoulde r KIRSTEN ASENCIO RD D 03/21 [facility] [place] [facility] [place] En[facility] [id number] 03/23 [facility] [place] [facility] [facility] [place] [facility] En[facility] [id number] 03/30 [facility] [place] [facility] [facility] [place] [facility] Encounter [id number] 04/04 [facility] [place] [facility] [facility] [place] [facility] En[facility] [id number] 04/20 [facility] [place] [facility] [place] [facility] OFF[facility] O/P EST LOW 20 MIN [id number] Diagnos is: ICD-10- CM F41.9 Anxiety disorde r, unspeci Sera Powell MD 04/27 [facility] [place] [facility] [place] [facility] En[facility] [id number] 05/04 [facility] [place] [facility] [place] [facility] En[facility] [id number] 05/07 [facility] [place] [facility] [place] [facility] OFF[facility] O/P NEW MOD 45 MIN [id number] Diagnos is: ICD-10- CM M19.012 Primary osteoar thritis , left shoulde r Rosy ROME 05/17 [facility] [place] [facility] [place] [facility] En[facility] [id number] 05/17 [facility] [place] [facility] [facility] [place] [facility] Encounter [id number] 05/18 [facility] [place] [facility] [facility] [place] [place] [facility] Outpatient Encounter [id number] 05/30 [facility] [place] [facility] Outpatient Encounter [id number] 06/19 [facility] [place] [facility] Outpatient Encounter [id number] 06/19 [facility] [place] [facility] Outpatient Encounter [id number] Angi IRVIN 06/19 [facility] [place] [facility] OFFICE O/P EST LOW 20 MIN [id number] Diagnos is: ICD-10- CM 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 KIRSTEN Persaud RD 06/19 [facility] [place] [facility] [place] [place] [facility] OFFICE O/P EST SF 10 MIN [id number] Diagnos is: ICD-10- CM F41.9 Anxiety disorde r, unspeci Sera Powell MD 07/25 [facility] [place] [facility] [place] En[facility] [id number] 07/26 [facility] [place] [facility] [place] [facility] En[facility] [id number] 07/29 [facility] [place] [facility] [facility] [place] [facility] PSYCH DIAGNOSTIC EVALUATION [id number] Diagnos is: ICD-10- CM R41.3 Other amnesia [place] DGEL A 08/07 [facility] [place] [facility] [place] En[facility] [id number] [place] CHAEL A 08/07 [facility] [place] [facility] [place] [facility] PSYCL/NR[place] Y[place] T[place] PH[place] [id number] Diagnos is: ICD-10- CM R41.3 Other amnesia [place] DGEL A 08/21 [facility] [place] [facility] [place] [facility] En[facility] [id number] 08/31 [facility] [place] [facility] [place] [facility] Encounter [id number] 09/03 [facility] [place] [facility] [facility] [place] [facility] En[facility] [id number] 09/20 [facility] [place] [facility] [place] [facility] OFF[facility] O/P EST SF 10 MIN [id number] Diagnos is: ICD-10- CM I69.911 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 KIRSTEN ASENCIO RD 09/25 [facility] [place] [facility] [place] En[facility] [id number] 10/09 [facility] [place] [facility] [facility] [place] [facility] En[facility] [id number] 10/09 [facility] [place] [facility] [facility] [place] [facility] En[facility] [id number] 10/12 [facility] [place] [facility] [facility] [place] [facility] En[facility] [id number] 1.10/20 [facility] [place] [facility] [facility] [place] [facility] Encounter [id number] 1.10/24 [facility] [place] [facility] [place] [facility] En[facility] [id number] 1.10/25 [facility] [place] [facility] [facility] [place] [facility] En[facility] [id number] 1.10/25 [facility] [place] [facility] [place] [facility] En[facility] [id number] 1.10/30 [facility] [place] [facility] [facility] [place] En[facility] [id number] 1.11/08 [facility] [place] [facility] [facility] [place] [facility] OFF[facility] O/P EST SF 10 MIN [id number] Diagnos is: ICD-10- CM F41.9 Anxiety disorde r, unspeci Sera Powell MD 11/08 [facility] [place] [facility] [place] En[facility] [id number] 11/11 [facility] [place] [facility] [facility] [place] En[facility] [id number] [facility] [place] [facility] [place] En[facility] [id number] [facility] [place] [facility] [facility] [place] En[facility] [id number] [facility] [place] [facility] [facility] [place] En[facility] [id number] 1.12/04 [facility] [place] [facility] [facility] [place] En[facility] [id number] [facility] [place] [facility] [facility] [place] En[facility] [id number] 12/15 [facility] [place] [facility] [facility] [place] En[facility] [id number] 12/19 [facility] [place] [facility] [facility] [place] En[facility] [id number] 12/20 [facility] [place] [facility] [facility] [place] En[facility] [id number] 12/27 [facility] [place] [facility] [facility] [place] En[facility] [id number] 12/27 [facility] [place] [facility] [facility] [place] Encounter [id number] 12/27 [facility] [place] [facility] [facility] [place] [facility] OFF[facility] O/P EST SF 10 MIN [id number] Diagnos is: ICD-10- CM R41.[address] Rosy 12/31 [facility] [place] En[facility] [id number] 01/02 [facility] [place] [facility] [facility] [place] En[facility] [id number] 01/09 [facility] [place] [facility] [facility] [place] [id number] 1.01/09 [facility] [place] [facility] [facility] [place] En[facility] [id number] 01/21 [facility] [place] [facility] [place] En[facility] [id number] 02/14 [facility] [place] [facility] [facility] [place] En[facility] [id number] 02/20 [facility] [place] [facility] [facility] [place] Encounter [id number] 02/26 [facility] [place] [facility] [place] En[facility] [id number] 03/07 [facility] [place] [facility] [facility] [place] En[facility] [id number] 03/12 [facility] [place] [facility] [place] OFFICE O/P EST HI 40 MIN [id number] Diagnos is: ICD-10- CM F41.9 Anxiety disorde r, unspeci Fany Carroll 03/19 [facility] [place] En[facility] [id number] 03/19 [facility] [place] [facility] [place] En[facility] [id number] 03/21 [facility] [place] [facility] [place] En[facility] [id number] 03/28 [facility] [place] [facility] [facility] [place] En[facility] [id number] 04/08 [facility] [place] [facility] [place] En[facility] [id number] 04/19 [facility] [place] [facility] [place] En[facility] [id number] 04/23 [facility] [place] [facility] [place] En[facility] [id number] 04/25 [facility] [place] [facility] [place] En[facility] [id number] 04/28 [facility] [place] [place] OFF[facility] O/P EST LOW 20 MIN [id number] Diagnos is: ICD-10- CM I10 Essenti al (primar y) hyperte nsKIRSTEN Gregg RD 04/30 [facility] [place] En[facility] [id number] 04/30 [facility] [place] En[facility] [id number] 05/20 [facility] [place] [place] [facility] [place] [facility] Outpatient Encounter [id number] 05/20 [place] [facility] [place] [facility] [place] [facility] OFFICE O/P EST MOD 30 MIN [id number] Diagnos is: ICD-10- CM F41.9 Anxiety disorde r, unspeci Fany Carroll 05/21 [facility] [place] [place] [facility] Social History Combined list of available smoking, tobacco, and other social history from 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 Social History Type Response Date Comment Sour e Tobacco smoking status NHIS VA-TOBACCO QUIT 15 YRS OR MORE 09/26/2023 [facility] [place] [facility] History of tobacco use AR-TOBACCO FORMER USER 09/26/2023 [facility] [place] [facility] History of tobacco use AR-TOBACCO FORMER USER 10/18/2022 [facility] [place] [facility] History of tobacco use AR-TOBACCO FORMER USER 12/29/2021 [place] History of tobacco use AR-TOBACCO FORMER USER 11/12/2021 [facility] [place] [facility] History of tobacco use VA-TOBACCO FORMER USER 10/01/2020 [facility] [place] [facility] History of tobacco use VA-TOBACCO FORMER USER 10/25/2019 [facility] [place] [facility] History of tobacco use AR-TOBACCO QUIT 5 TO < 15 YRS 09/07/2018 [facility] [place] [facility] History of tobacco use VA-TOBACCO USE DECLINED TO ANSWER 04/25/2018 [facility] [place] [facility] Plan of Care List of future care activities from Department of Veterans Affairs facilities. Additional future care activities may be listed in the Assessment and Plan section. Date/Time Care Activity Care Activity Detail Facili ty 08/21/2024 AMBULATORY - PSYCHIATRY AMBULATORY - PSYC HIATRY [facility] [place] [facility]
--- OUTSIDE RECORDS SUMMARY | 2024-05-24 12:39 | XMS_ITS | Encounter Summary ---
Author Name [facility] [place] Organization [facility] [place] [place] Address [address] [place] [address] Care Team Providers Care Manufacturing Coordinator Name Role Phone ROSELYN PEREZ Primary [...] TRICA RE DODA WNR Oct 05, 2022 [facility] [id number] NOEMI BREEN ERT PATIENT MEDICARE (WNR) MEDICARE (M) PART A Feb 13, 2019 PART A [id number] HUNTERNOEMI SMALLWOOD ERT PATIENT MEDICARE (WNR) MEDICARE (M) PART B Feb 13, 2019 PART B [id number] NOEMI BREEN ERT PATIENT MEDICARE (WNR) MEDICARE (M) PART A Feb 13, 2019 PART A [id number] [phone] NOEMI BREEN ERT PATIENT MEDICARE (WNR) MEDICARE (M) PART B Feb 13, 2019 PART B [id number] [phone] NOEMI BREEN ERT PATIENT MEDICARE (WNR) MEDICARE (M) PART A Feb 13, 2019 PART A [id number] [phone] NOEMI BREEN ERT PATIENT MEDICARE (WNR) MEDICARE (M) PART B Feb 13, 2019 PART B [id number] [phone] NOEMI BREEN ERT PATIENT FOR LIFE TFL* Feb 13, 2019 [id number] NOEMI BREEN ERT PATIENT FOR LIFE SUPPLEMEN SHAI TFL Feb 13, 2019 [facility] [id number] NOEMI BREEN ERT PATIENT -FO R-LIFE DIREC T CARE Oct 05, 2022 [facility] [id number] NOEMI BREEN ERT PATIENT Selected Encounter This section includes the information on record at [place] for the Encounter. Date/Time Encounter Type Encounter Description Reason Provider Source Apr 30, 2024 03:00 PM OFFICE O/P EST LOW 20 MIN PRIMARY CARE/MEDICINE ICD-10-CM I10 Essential (primary) hypertension NITISH ASENCIO [facility] Encounter Template Text not used by [place] Assessments - Encounter Diagnoses This section includes the primary and secondary diagnoses documented for the Encounter. Date/Time Primary/Secondary Diagnosis Diagnosis Name Provider Source Apr 30, 2024 03:31 PM PRIMARY Essential (primary) hypertension [facility] [place] [facility] Plan of Treatment: Future Appointments (+ [...] 21, 2024 01:00 PM AMBULATORY - PSYCHIATRY [facility] [place] [facility] Aug 21, 2024 01:00 PM AMBULATORY - PSYCHIATRY [place] [facility] [place] [facility] Oct 30, 2024 02:00 PM AMBULATORY - MEDICINE [facility] Active, Pending, and Scheduled Orders [...] Date/Time Test Type Test Details Facility Name Mar 19, 2024 12:00 AM Laboratory - Chemistry Order BASIC METABOLIC PANEL (non-fasting) BLOOD (SST[facility]UM[facility] Mar 19, 2024 12:00 AM Laboratory - Chemistry Order CBC AND DIFF (AUTO) BLOOD (LAV[facility]BLOOD) [facility] Mar 19, 2024 12:00 AM Laboratory - Chemistry Order LIPID PANEL, NON FASTING BLOOD (SST-SERUM) [facility] Mar 19, 2024 12:00 AM Laboratory - Chemistry Order TSH BLOOD (SST[facility]SERUM) [facility] Mar 19, 2024 12:00 AM Laboratory - Chemistry Order LIVER FUNCTION BLOOD (SST-SERUM) [facility] Mar 21, 2024 11:00 AM Consult [facility] Consultant's Choice [facility] Apr 18, 2024 12:00 AM Laboratory - Chemistry Order BASIC METABOLIC PANEL (non-fasting) BLOOD (SST-SERUM) [facility] Apr 18, 2024 12:00 AM Laboratory - Chemistry Order CBC AND DIFF (AUTO) BLOOD (LAV-BLOOD) [facility] Apr 18, 2024 12:00 AM Laboratory - Chemistry Order LIPID PANEL, NON FASTING BLOOD (SST-SERUM) [facility] Apr 18, 2024 12:00 AM Laboratory - Chemistry Order TSH BLOOD (SST-SERUM) [facility] Apr 18, 2024 12:00 AM Laboratory - Chemistry Order LIVER FUNCTION BLOOD (SST-SERUM) [facility] Apr 18, 2024 12:00 AM Laboratory - Chemistry Order URINALYSIS CLEAN CATCH URINE SP [place] [facility] [place] [facility] Vital Signs: All taken on the encounter date This section contains inpatient and outpatient Vital Signs collected on the date of the Encounter. Date/Time Temperature Pulse Blood Pressure Respiratory Rate SP02 Pain Height Weight Body Mass Index Source Apr 30, 2024 03:01 PM 97.4 64 138/84 16 96 0 70 261 38 [place] [facility] [place] [facility] Social History: Smoking Status (Most current) [...] 15 YRS OR MORE [place] [facility] Tobacco Use History This section includes a history of the smoking, or tobacco-related health factors, that were collected on or before the date of the Encounter. The data comes from the [place] facility where the Encounter took place. Date/Time Smoking Status/Tobacco Use Comment F acility Sep 26, 2023 09:00 AM VA-TOBACCO QUIT 15 YRS OR MORE [facility] [place] [facility] Oct 18, 2022 03:16 PM VA-TOBACCO FORMER USER [facility] [place] [facility] Oct 18, 2022 03:16 PM VA-TOBACCO QUIT 15 YRS OR MORE [facility] [place] [facility] Nov 12, 2021 10:30 AM VA-TOBACCO FORMER USER [facility] [place] [facility] Nov 12, 2021 10:30 AM VA-TOBACCO QUIT 5 TO < 15 YRS [facility] [place] [facility] Oct 01, 2020 11:02 AM VA-TOBACCO FORMER USER [facility] [place] [facility] Oct 01, 2020 11:02 AM VA-TOBACCO QUIT 15 YRS OR MORE [facility] [place] [facility] Oct 25, 2019 11:30 AM VA-TOBACCO FORMER USER [facility] [place] [facility] Oct 25, 2019 11:30 AM VA-TOBACCO QUIT 5 TO < 15 YRS [facility] Sep 07, 2018 09:43 AM VA-TOBACCO [facility] Sep 07, 2018 09:43 AM VA-TOBACCO QUIT 5 TO < 15 YRS [facility] Apr 25, 2018 02:08 PM VA-TOBACCO USE DEC LINED TO ANSWER [facility] Radiology Reports: +/- 30 days of [...] PM LDCT INCIDENTAL PULMONARY NODULE: NAINA BREEN NARESH [id number] -1955 M Exm Date: APR 24, 2024@13:31 Req Phys: NITISH ASENCIO Loc: [facility] PACT 2 MD (Req'g Loc) Img Loc: [facility]/CT Service: [place] [address] (Case [id number] COMPLETE) LDCT INCIDENTAL PULMONARY NODULE (CT Detailed) CPT:56941 Reason for Study: look for cancer Clinical History: Report Status: Verified Date Reported: APR 24, 2024 Date Verified: APR 29, 2024 Peer Tutor E-Sig:/ES/HANSEL COLEMAN Report: Study: Lung cancer screening CT of [...] reviewed. Secondary computer-aided detection with post-processing from [employer] is used. The lack of intravenous contrast [...] Radiologist VERIFIED BY: MIGUEL ANGEL GILL, RT, COMPUTER GAME TESTER /MIGUEL ANGEL OLEA [facility] Apr 24, 2024 01:29 PM LDCT LUNG CANCER SCREENING: NAINA RBEEN [id number] -[id number] M Exm Date: APR 24, 2024@13:29 Req Phys: NITISH ASENCIO Loc: [facility] PACT 2 MD (Req'g Loc) Img Loc: [facility]/CT Service: [facility] [place] [address] (Case [id number] COMPLETE) LDCT LUNG CANCER SCREENING (CT Detailed) CPT:01839 Reason for Study: look for cancer Clinical History: Report Status: Verified Date Reported: APR 24, 2024 Date Verified: APR 24, 2024 Peer Tutor E-Sig:/ES/RONNIE COLMENARES JR Report: Study: Lung cancer [...] reviewed. Secondary computer-aided detection with post-processing from [place] is used. The lack of intravenous contrast [...] Primary Interpreting Staff: RONNIE COLMENARES JR, Radiologist (Peer Tutor) /RONNIE WOLFE JR [facility] Encounter Notes: All associated encounter notes This section contains the clinical notes associated to the Encounter. Date/Time Encounter Note(s) Provider Source Apr 30, 2024 03:28 PM PHYSICIAN NOTE: LOCAL TITLE: NOTE STANDARD TITLE: PHYSICIAN NOTE DATE OF NOTE: APR 30, 2024@15:28 ENTRY DATE: APR 30, 2024@15:28:52 AUTHOR: NITISH ASENCIO EXP COSIGNER: URGENCY: STATUS: COMPLETED Patient Name: NAINA BREEN VITALS: Patient temperature: 97.4 F [36.3 C] (04/30/2024 15:01) Blood pressure: 138/84 (04/30/2024 15:01) Patient height: 70 in [177.8 cm] (04/30/2024 15:) Patient weight: 261 lb [118.39 kg] (04/30/2024 15:) Patient BMI: BMI: 37.5 Patient pulse: 64 (04/30/2024 15:) Patient respiration: 16 (04/30/2024 15:) Patient Pulse Oximetry: 96% (04/30/2024 15:) Pain Ratin (04/30/2024 15:) Active [facility] Medications: Active Outpatient Medications (including Supplies): Active Outpatient Medications Status === 1) AMLODIPINE BESYLATE 10MG TAB TAKE ONE TABLET BY MOUTH ONCE ACTIVE DAILY FOR BLOOD PRESSURE/HEART, DO NOT TAKE WITH GRAPEFRUIT JUICE Indication: FOR HIGH BLOOD PRESSURE 2) ARIPIPRAZOLE 20MG TAB TAKE ONE-HALF TABLET BY MOUTH ONCE ACTIVE DAILY FOR /DEPRESSION Indication: MOOD 3) ATORVASTATIN CALCIUM 80MG TAB TAKE ONE-HALF TABLET BY MOUTH ACTIVE AT BEDTIME Indication: FOR HIGH CHOLESTEROL 4) CARVEDILOL 6.25MG TAB TAKE ONE TABLET BY MOUTH TWICE DAILY ACTIVE WITH FOOD 5) LISINOPRIL 2.5MG TAB TAKE ONE TABLET BY MOUTH ONCE DAILY TO ACTIVE CONTROL BLOOD PRESSURE 6) VENLAFAXINE HCL 75MG 24HR SA CAP TAKE ONE CAPSULE BY MOUTH ACTIVE ONCE DAILY Indication: DEPRESSION/ ANXIETY Active Non-VA Medications Status === 1) Non-VA MULTIVITAMIN CAP/TAB 1 TABLET BY MOUTH ONCE DAILY ACTIVE 2) Non-VA OTHER CAP/TAB AREDS EYE VITAMINS BY MOUTH ONCE DAILY ACTIVE 8 Total Medications Remote Medications: No Active 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 he feels well today with no complaints. He takes all medications regularly. Review of systems No chest pain or dyspnea No abdominal pain No trouble urinating No fever or chills Physical examination Well-developed well-nourished male in no acute distress Coronary no murmur Carotid no bruit Lungs clear No peripheral edema 04-18-24 no show labs Assessment and plan: 1. Hypertension: Blood pressure satisfactory Plan: Continue present medications Follow-up 6 months clinic visit and lab Medication Reconciliation: Outpatient: Has the patient been taking medications as documented in the EMLR? YES: The patient has been taking medications as documented in the EMLR. Essential Medication List for Review used to complete this medication reconciliation. INCLUDED IN THIS LIST: Alphabetical list of active outpatient prescriptions dispensed from this [place] (local) and dispensed from another [facility] or [...] /ta/ Nitish Asencio MD Staff Physician Signed: 04/30/2024 15:31 NITISH ASENCIO [place] [facility] [place] [facility] Apr 30, 2024 03:08 PM PREVENTIVE MEDICIN E NURSING NOTE: LOCAL TITLE: CLINICAL REMINDERS/NURSING STANDARD TITLE: PREVENTIVE MEDICINE NURSING NOTE DATE OF NOTE: APR 30, 2024@15:08 ENTRY DATE: APR 30, 2024@15:08:08 AUTHOR: ANGELI RAMOS COSIGNER: URGENCY: STATUS: COMPLETED Homelessness/Food Insecurity Screen: In [...] Not worried about housing near future The reports the following: Within the past 12 months, you worried whether your food would run out before you got money to buy more. Never true Within the past 12 months, the food you bought just didn't last and you didn't have money to get more. Never true RHS Screen: RHS Screen Session Format: Face to Face Environmental Check Screening was not completed at this time due to: Another adult present /es/ ANGELI RAMOS LPN LPN Signed: 04/30/2024 15:10 ANGELI RAMOS [facility]
--- OUTSIDE RECORDS SUMMARY | 2024-05-24 12:39 | XMS_ITS | Encounter Summary ---
Author Name [facility] [place] Organization [facility] [place] Address [address] [place] [address] Care Team Providers Care Resizer Operator Name Role Phone ROSELYN PEREZ Primary [...] Oct 05, 2022 [facility] [id number] NOEMI BREEN ERT PATIENT MEDICARE (WNR) MEDICARE (M) PART A Feb 13, 2019 PART A [id number] HUNTERNOEMI SMALLWOOD ERT PATIENT MEDICARE (WNR) MEDICARE (M) PART B Feb 13, 2019 PART B [id number] NOEMI BREEN ERT PATIENT MEDICARE (WNR) MEDICARE (M) PART A Feb 13, 2019 PART A [id number] [phone] NOEMI BREEN ERT PATIENT MEDICARE (WNR) MEDICARE (M) PART B Feb 13, 2019 PART B [id number] [phone] NOEMI BREEN ERT PATIENT MEDICARE (WNR) MEDICARE (M) PART A Feb 13, 2019 PART A [id number] NOEMI BREEN ERT PATIENT MEDICARE (WNR) MEDICARE (M) PART B Feb 13, 2019 PART B [id number] [phone] NOEMI BREEN ERT PATIENT FOR LIFE TFL* Feb 13, 2019 [id number] NOEMI BREEN ERT PATIENT FOR LIFE SUPPLEMEN SHAI TFL Feb 13, 2019 [facility] LIFE [id number] NOEMI BREEN ERT PATIENT -FO R-LIFE DIREC T CARE Oct 05, 2022 [facility] [id number] NOEMI BREEN ERT PATIENT Selected Encounter This section includes the information on record at [place] for the Encounter. Date/Time Encounter Type Encounter Description Reason Provider Source May 21, 2024 01:00 PM OFFICE O/P EST MOD 30 MIN [facility] - IND ICD-10-CM F41.9 Anxiety disorder, unspecified ALPA DOTSON E Encounter Template Text not used by [place] Assessments - Encounter Diagnoses This section includes the primary and secondary diagnoses documented for the Encounter. Date/Time Primary/Secondary Diagnosis Diagnosis Name Provider Source May 21, 2024 01:30 PM PRIMARY Anxiety disorder, unspecified ALPA DOTSON [facility] May 21, 2024 01:30 PM SECONDARY Mild cognitive impairment of uncertain or unknown etiology ALPA DOTSON [facility] Plan of Treatment: Future Appointments (+ [...] Appointment Type Appointme nt Facility Name Aug 21, 2024 01:00 PM AMBULATORY - PSYCHIATRY [facility] Oct 30, 2024 02:00 PM AMBULATORY - MEDICINE [facility] Active, Pending, and Scheduled Orders [...] Order BASIC METABOLIC PANEL (non-fasting) BLOOD (SST-SERUM) [facility] Apr 18, 2024 12:00 AM Laboratory - Chemistry Order CBC AND DIFF (AUTO) BLOOD (LAV-BLOOD) [facility] Apr 18, 2024 12:00 AM Laboratory - Chemistry Order LIPID PANEL, NON FASTING BLOOD (SST-SERUM) [facility] Apr 18, 2024 12:00 AM Laboratory - Chemistry Order TSH BLOOD (SST-SERUM) [facility] Apr 18, 2024 12:00 AM Laboratory - Chemistry Order LIVER FUNCTION BLOOD (SST-SERUM) [facility] Apr 18, 2024 12:00 AM Laboratory - Chemistry Order URINALYSIS CLEAN CATCH URINE [facility] Social History: Smoking Status (Most current) [...] Facil ity Sep 26, 2023 09:00 AM CO-TOBACCO FORMER USER [facility] Tobacco Use History This section includes a history of the smoking, or tobacco-related health factors, that were collected on or before the date of the Encounter. The data comes from the [place] facility where the Encounter took place. Date/Time Smoking Status/Tobacco Use Comment F acility Sep 26, 2023 09:00 AM VA-TOBACCO QUIT 15 YRS OR MORE [facility] [place] [facility] Oct 18, 2022 03:16 PM VA-TOBACCO FORMER USER [facility] [place] [facility] Oct 18, 2022 03:16 PM VA-TOBACCO QUIT 15 YRS OR MORE [facility] [place] [facility] Nov 12, 2021 10:30 AM VA-TOBACCO FORMER USER [facility] [place] [facility] Nov 12, 2021 10:30 AM VA-TOBACCO QUIT 5 TO < 15 YRS [facility] [place] [facility] Oct 01, 2020 11:02 AM VA-TOBACCO FORMER USER [facility] [place] [facility] Oct 01, 2020 11:02 AM VA-TOBACCO QUIT 15 YRS OR MORE [facility] [place] [facility] Oct 25, 2019 11:30 AM VA-TOBACCO FORMER USER [facility] [place] [facility] Oct 25, 2019 11:30 AM VA-TOBACCO QUIT 5 TO < 15 YRS [facility] [place] [facility] Sep 07, 2018 09:43 AM VA-TOBACCO FORMER USER [facility] [place] [facility] Sep 07, 2018 09:43 AM VA-TOBACCO QUIT 5 TO < 15 YRS [facility] [place] [facility] Apr 25, 2018 02:08 PM VA-TOBACCO USE DEC LINED TO ANSWER [facility] [place] [facility] Radiology Reports: +/- 30 [...] LDCT INCIDENTAL PULMONARY NODULE: NAINA BREEN NARESH [id number] -1955 M Exm Date: APR 24, 2024@13:31 Req Phys: ISABELA ASENCIO Pat Loc: [facility] PACT 2 (Req'g Loc) Img Loc: [facility]/CT [facility]: [facility] [address] (Case [id number] COMPLETE) LDCT INCIDENTAL PULMONARY NODULE (CT Detailed) CPT:99286 Reason for Study: look for cancer Clinical History: Report Status: Verified Date Reported: APR 24, 2024 Date Verified: APR 29, 2024 Gastroenterologist E-Sig:/ES/MIGUEL ANGEL GILL, RTR Report: Study: Lung [...] reviewed. Secondary computer-aided detection with post-processing from [employer] is used. The lack of intravenous contrast [...] Radiologist VERIFIED BY: MIGUEL ANGEL GILL, RT, KENO WRITER /MIGUEL ANGEL OLEA [facility] Apr 24, 2024 01:29 PM LDCT LUNG CANCER SCREENING: NUHANAINA NARESH [id number] -1955 M Exm Date: APR 24, 2024@13:29 Req Phys: ISABELA ASENCIO Loc: [facility] PACT 2 (Req'g Loc) [facility] Loc: [facility]/CT Service: [place] [address] (Case [id number] COMPLETE) LDCT LUNG CANCER SCREENING (CT Detailed) CPT:77667 Reason for Study: look for cancer Clinical History: Report Status: Verified Date Reported: APR 24, 2024 Date Verified: APR 24, 2024 Gastroenterologist E-Sig:/ES/RONNIE COLMENARES JR Report: Study: Lung cancer [...] reviewed. Secondary computer-aided detection with post-processing from [employer] is used. The lack of intravenous contrast [...] Primary Interpreting Staff: RONNIE COLMENARES JR, Radiologist (Gastroenterologist) /RONNIE WOLFE JR [facility] Encounter Notes: All associated encounter notes This section contains the clinical notes associated to the Encounter. Date/Time Encounter Note(s) Provider Source May 21, 2024 01:02 PM PRIMARY CARE NURSE PRACTITIONER OUTPATIENT NOTE: LOCAL TITLE: NURSE PRACTITIONER OUTPATIENT NOTE STANDARD TITLE: PRIMARY CARE NURSE PRACTITIONER OUTPATIENT NOTE DATE OF NOTE: MAY 21, 2024@13:02 ENTRY DATE: MAY 21, 2024@13:02:53 AUTHOR: ELISA DOTSON EXP COSIGNER: URGENCY: STATUS: COMPLETED OUTPATIENT MENTAL HEALTH CLINIC: FOLLOW-UP HPI: NAINA BREEN, a 69 y/o male [place] previously diagnosed with Anxiety disorder, unspecified and Mild Neurocognitive Disorder, probably due to multiple etiologies presents [place] [facility] [place]. Last seen by This Provider on 03/19/24 Reports mood as good Feels that depression and anxiety are adequately controlled at current doses definitely Does not feel that memory issues have gotten worse. I don't remember having much of a problem any more Sleep is adequate; 8 hours per night Chilton explicitly and convincingly denied SI, intent or plan and denied thoughts of harming others. SUBSTANCE USE: Tobacco: denied Alcohol: Sangria, a couple glasses per week; remote history of AUD but not in recent years; no hx of complicated withdrawal Narcotics: denied Cannabis: daily, 3-4 bowls per day PSYCHIATRIC HISTORY: Medication trials: ESCITALOPRAM SERTRALINE ineffective at dose of 150mg TRAZODONE Inpatient Hospitalizations: denied Suicidal Acts and Self-Harm: denied HISTORY OF VIOLENCE/ASSAULTING OTHERS: denied FAMILY MENTAL HEALTH AND SUBSTANCE USE HISTORY: FAMILY HX: The 's younger son from an opiate heroin OD at age 28 2012 Ch[place] denied that anyone in his family was ever diagnosed with Alzheimer's disease or any other type of dementia SOCIAL HX: Born in [place] raised in [place], [place] has 3 siblings, he is #2, older Sister and 2 younger brothers. Father 8 years, mother lives with sister; No hx of childhood trauma or abuse. Education: 2 year of College: [employer] and [employer] SOCIAL HISTORY: Per CONSULT REPORT/NEUROPSYCHOLOGY (08/11/2023), confirmed by during assessment The Chilton reported that he currently lives with his and son in a single- family home in [place]. The Chilton's younger son from an opiate overdose. He reported that he has three siblings and also that his mother lives with one of his siblings. He has contact with his family on an infrequent basis. He discussed that his highest education level is a year and a half of college. He discussed going to [employer] in [place] for a year and then to [employer] for six months. 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 He discussed retiring from the [employer] in 2014 and currently receives his pension and social security. 08/11/[address] Roel Dooley Diagnosed with Mild Neurocognitive Disorder, probably due to multiple etiologies (F06.7) NEUROLOGY: 02/27/24 Dr. Valerio of [facility] recent MRI showed age appropriate atrophy and minor microvascular changes Diagnosis: Mild Cognitive Impairment with Memory Loss MEDICAL: Hx of prostate cancer as well as renal cell carcinoma status post nephrectomy. Now with a new renal mass MENTAL STATUS EXAM: Appearance: consistent w/ stated age, appropriate grooming and hygiene Behavior: polite, cooperative and treatment motivated Motor: no tics, tremors, or abnormal movements Speech: normal rate, volume and articulation Thought process: logical, linear and coherent Thought content: denies hallucinations, delusions, or paranoia. No ideas of reference. No thoughts insertion. Denies homicidal thoughts. Denies suicidal ideation, intent or plan. Insight and Judgment: both intact Cognition: alert and oriented x 3, good attention, memory grossly intact to conversational testing Mood: fine Affect: mood congruent LABS AND STUDIES: REVIEWED IN CPRS MEDICAL HISTORY: Active Problem Sleep apnea syndrome G47.30, Onset 03/17/2024 ISABELA ASENCIO Memory deficit R41.3, Onset /2 09/26/2023 ISABELA ASENCIO Exposure to potentially hazardous s 05/24/2023 TOI TODD Joint pain in both shoulders M25.51 03/21/2023 ISABELA ASENCIO Renal cell carcinoma C64.9 06/14/2021 ALCIDES CRAWFORD Renal cyst R93.429 03/23/2021 ALCIDES CRAWFORD Multiple nodules of lung R91.1 12/20/2022 ISABELA ASENCIO 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 03/23/2021 ALCIDES CRAWFORD Pain in left knee M25.562 10/15/2020 ALCIDES CRAWFORD Prostate Cancer ([facility] [id number]) C61 08/12/2019 ALCIDES CRAWFORD Polyp Colon ([facility] [id number]) K63.5 01/29/2019 ALCIDES CRAWFORD HTN - Hypertension ([facility] [id number]) I 01/25/2019 ALCIDES CRAWFORD Hyperlipidemia ([facility] [id number]) E78.5 01/25/2019 ALCIDES CRAWFORD Benign neoplasm of adrenal gland D3 02/15/2021 ALCIDES CRAWFORD Nocturia R35.1 01/25/2019 ALCIDES CRAWFORD Erectile dysfunction N52.8 01/25/2019 ALCIDES CRAWFORD Anxiety ([facility] [id number]) F41.9 04/03/2019 JAKUB MESA MD Alcohol Abuse ([facility] [id number]) F10.10 04/03/2019 JAKUB MESA MD ALLERGIES: Data on this list may not be complete. Please check JLV. FACILITY ALLERGY/ADR -------- MARK Lawson [facility] [place] (52 NO KNOWN ALLERGIES [facility] [place] [facility] LISINOPRIL [facility] [place] [facility] METOPROLOL [facility] [place] [facility] PERCOCET MEDICATIONS: reviewed and updated in CPRS Active Outpatient Medications (including Supplies): Active Outpatient [...] Indication: DEPRESSION/ ANXIETY Active Non-VA Medications Status 1) Non-VA MULTIVITAMIN CAP/TAB 1 TABLET BY MOUTH ONCE DAILY ACTIVE 2) Non-VA OTHER CAP/TAB AREDS EYE VITAMINS BY MOUTH ONCE DAILY ACTIVE 8 Total Medications SAFETY ASSESSMENT: No acute safety concerns. Convincingly denies any thoughts, intents, or plans to harm self or others. Chronic risk is elevated by status and mental illness but is currently mitigated by participation in treatment and demonstration of help-seeking behaviors. IMPRESSION: presents as polite, cooperative and treatment motivated Reports adherence to current medications with significant therapeutic benefit and denies side effects. Reports desire to continue with current pharmacotherapy regimen. feels that symptoms of depression and anxiety are adequately controlled by current medications Declines downward titration of ARIPIPRAZOLE to reduce risk of side effects (metabolic and weight gain) and because of lack of indication. Chilton notes that current combination has been of benefit for years now and that he does not want to adjust it for fear of worsening symptoms. No acute safety concerns Diagnosis: Anxiety disorder, unspecified Mild Neurocognitive Disorder due to multiple etiologies (G31.84) Panic Disorder (in remission) PLAN: CONTINUE ARIPIPRAZOLE 10MG PO DAILY CONTINUE VENLAFAXINE XR 75MG PO DAILY Labs: reminded of pending lab orders Follow-Up: 08/21/24 Discussed risks and benefits of proposed medication treatments including FDA approved indications and off-label uses, as well as common and severe side effects. comprehended all information discussed, had opportunity to ask questions which were answered to their satisfaction, and voluntarily and without duress agreed to trial as documented. CONTACT AND CRISIS INFO: informed that This Provider can be contacted at , [phone] or via Secure Messaging. We have reviewed the Crisis Hotline (895, dial #1 for line), and the has been instructed to call 911 or go to the nearest ED if acutely suicidal or experiencing a mental health emergency. INFORMED CONSENT REVIEWED: At beginning of session reviewed rights and limits of confidentiality, mandatory reporting situations, duty to warn and protect, risk of suicide or homicide, potential elder or child abuse/neglect and Luna Warning, (if treatment team finds patient to be an acute danger to himself or others, that this information could be relayed to a court of law and presented to a chemist organic), and DOD access for active-duty service members. CODING: Total time today was 30 minutes, which included an in-person visit with the patient, providing counseling and education, and time spent reviewing the record, ordering meds, completing documentation, and coordinating care. CLINICAL REMINDERS: Medication Reconciliation: Outpatient: Has the patient been taking medications as documented in the EMLR? YES: The patient has been taking medications as documented in the EMLR. Essential Medication List for Review used to complete this medication reconciliation. INCLUDED IN THIS LIST: Alphabetical list of active outpatient prescriptions dispensed from this CO (local) and dispensed from another VA or [...] with a VA or non-VA provider. /ta/ ELISA DOTSON Psychiatric Mental Health Nurse Practitioner Signed: 05/21/2024 13:29 ELISA DOTSON [facility]
--- OUTSIDE RECORDS SUMMARY | 2024-05-24 12:39 | XMS_ITS | Encounter Summary ---
Author Name [facility] ([place]) Address [address] [place] [address] Care Team Providers Care Tourist Home Keeper Name Role Phone ROSELYN PEREZ Primary [...] [id number] NOEMI BREEN ERT PATIENT MEDICARE (WNR) MEDICARE (M) PART A Feb 13, 2019 PART A [id number] [phone] NOEMI BREEN ERT PATIENT MEDICARE (WNR) MEDICARE (M) PART B Feb 13, 2019 PART B [id number] NOEMI BREEN ERT PATIENT MEDICARE (WNR) MEDICARE (M) PART A Feb 13, 2019 PART A [id number] NOEMI BREEN ERT PATIENT MEDICARE (WNR) MEDICARE (M) PART B Feb 13, 2019 PART B [id number] [id number] [phone] NOEMI BREEN ERT PATIENT MEDICARE (WNR) MEDICARE (M) PART A Feb 13, 2019 PART A [id number] [phone] NOEMI BREEN ERT PATIENT MEDICARE (WNR) MEDICARE (M) PART B Feb 13, 2019 PART B [id number] NOEMI BREEN ERT PATIENT FOR LIFE TFL* Feb 13, 2019 [id number] NOEMI BREEN ERT PATIENT FOR LIFE SUPPLEMEN SHAI TFL Feb 13, 2019 [facility] [id number] 90 NOEMI BREEN ERT PATIENT -FO R-LIFE DIREC T CARE Oct 05, 2022 [facility] [id number] 90 NOEMI BREEN ERT PATIENT Selected Encounter This section includes the information on record at [place] for the Encounter. Date/Time Encounter Type Encounter Description Reason Pro vider Source Mar 19, 2024 01:30 PM Outpatient Encounter PRIMARY CARE/MEDICINE IHE Encounter Template Text not used by AL Plan of Treatment: Future Appointments (+ 6 months) and Future Tests (+/- 45 days) The Plan of Treatment section includes future care activities for the patient from all AL treatmentfacilities. This section includes future appointments and future orders which are active, pending or scheduled. Future Appointments This section includes appointments that were scheduled to occur 6 months from the date of the Encounter, up to a maximum of 20 appointments. The data comes from all AL treatment facilities. Appointment Date/Time Appointment Type Appointme nt Facility Name Apr 24, 2024 01:30 PM AMBULATORY - NONE [facility] [place] [facility] Apr 30, 2024 03:00 PM [facility] [place] [facility] May 21, 2024 01:00 PM AMBULATORY - PSYCHIATRY [facility] [place] [facility] Aug 21, 2024 01:00 PM [facility] Active, Pending, and Scheduled Orders This section includes a listing of several types of active, pending, and scheduled orders, including clinic medications orders, diagnostic test orders, procedure orders and consult orders; where the start date of the order is 45 days before the date of the Encounter or 45 days after the date of theEncounter. The data comes from all AL treatment facilities. Test Date/Time Test Type Test Details Facility Name Mar 19, 2024 12:00 AM Laboratory - Chemistry Order BASIC METABOLIC PANEL (non-fasting) BLOOD (SST-SERUM) [facility] Mar 19, 2024 12:00 AM Laboratory - Chemistry Order CBC AND DIFF (AUTO) BLOOD (LAV-BLOOD) [facility] Mar 19, 2024 12:00 AM Laboratory - Chemistry Order LIPID PANEL, NON FASTING BLOOD (SST[facility]SERUM) [facility] Mar 19, 2024 12:00 AM Laboratory - Chemistry Order TSH BLOOD (SST-SERUM) [facility] Mar 19, 2024 12:00 AM Laboratory - Chemistry Order LIVER FUNCTION BLOOD (SST-SERUM) [facility] Mar 21, 2024 11:00 AM Consult Order [facility]-SLEEP STUDY Cons Medical Biller Coder's Choice [facility] Apr 18, 2024 12:00 AM Laboratory - Chemistry Order BASIC METABOLIC PANEL (non-fasting) BLOOD (SST-SERUM) [facility] Apr 18, 2024 12:00 AM Laboratory - Chemistry Order CBC AND DIFF (AUTO) BLOOD (LAV-BLOOD) [facility] Apr 18, 2024 12:00 AM Laboratory - Chemistry Order LIPID PANEL, NON FASTING BLOOD (SST-SERUM) [facility] Apr 18, 2024 12:00 AM Laboratory - Chemistry Order TSH BLOOD (SST-SERUM) [facility] Apr 18, 2024 12:00 AM Laboratory - Chemistry Order LIVER FUNCTION BLOOD (SST-SERUM) [facility] Apr 18, 2024 12:00 AM Laboratory - Chemistry Order URINALYSIS CLEAN CATCH [facility] Social History: Smoking Status (Most current) and Tobacco Use (All prior to encounter date) This section includes the most current, and the historical, smoking and tobacco- related health factors from the AL facility where the Encounter took place. Current Smoking Status This section includes the most current smoking, or tobacco-related health factor, from the AL facility where the Encounter took place. Date/Time Current Smoking Status Comment Randal ity Sep 26, 2023 09:00 AM VA-TOBACCO QUIT 15 YRS OR MORE [place] [facility] [place] [facility] Tobacco Use History This section includes a history of the smoking, or tobacco-related health factors, that were collected on or before the date of the Encounter. The data comes from the AL facility where the Encounter took place. Date/Time [...] [facility] [place] [facility] Apr 25, 2018 02:08 PM VA-TOBACCO USE DEC LINED TO ANSWER [facility] [place] [facility]
== END 2024-05-24 12:31 | disposition home or self-care (01) ==
LOC: HO.HKA 11:39
PROVIDERS: PCP Internal Medicine; Visit Provider Internal Medicine Nephrology
DX: N28.1 Cyst of kidney, acquired (principal); Z90.5 Acquired absence of kidney; I10 Essential (primary) hypertension; N18.31 Chronic kidney disease, stage 3a
CPT/HCPCS: 99214

== ENCOUNTER → 2024-05-24 11:39 | Outpatient (BNVA) | payer OTHER, SELFPAY | PROVIDERS: PCP Internal Medicine; Visit Provider Internal Medicine Nephrology | DX: N28.1 Cyst of kidney, acquired (principal); I12.9 Hypertensive chronic kidney disease with stage 1 through stage 4 chronic kidney disease, or unspecified chronic kidney disease; N18.31 Chronic kidney disease, stage 3a; Z85.46 Personal history of malignant neoplasm of prostate; Z90.5 Acquired absence of kidney | CPT/HCPCS: 99212 ==

== ENCOUNTER 2024-09-09 09:49 | Outpatient (REF) | payer OTHER, SELFPAY ==
--- OUTSIDE RECORDS SUMMARY | 2024-09-09 10:48 | XMS_ITS | Encounter Summary ---
Author Organization [facility] Address [address] [place] [address] Phone Care Team Providers Care Video Tape Transferrer Name Role Phone Winston Harden DO Unavailable [phone] Nitish Schuster MD Primary Care Provider + Encounter Details Date Type Department Care Team (Late st Contact Info) Description 12/21/2023 Procedure Pass [facility], [facility] [address] [place] [address] Social History Tobacco Use Types Packs/Day Years Used Date Smoking Tobacco: Former Cigars Smokeless Tobacco: Never Comments:Smokes cigars for 5 years, quit for greater than 10 years Alcohol Use Standard Drinks/Week Comments Yes 15 (1 standard drink = 0.6 oz pu re alcohol) confirmed 05/21/21 Education Answer Date Recorded Are you interested in more education? Not on colette e 06/10/2022 Are you concerned about learning? Not on file 06/10/2022 No 06/10/2022 No 06/10/2022 Digital Access Answer Date Recorded No 07/09/2022 No 07/09/2022 Reliable internet access at home? Not on file 07/09/2022 Device with a working camera? Not on file Intimate Partner Violence Answer Date R ecorded Are you denied basic needs s uch as food, clothing, or medical care? No 12/05/2023 In the past 12 months have y ou been in a relationship with a person who hurts, threatens, or tries to control you? No 12/05/2023 Are you denied basic needs s uch as food, clothing, or medical care? No 12/05/2023 In the past 12 months have y ou been in a relationship with a person who hurts, threatens, or tries to control you? 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 Not on file Not on file No t on file documented as of this encounter Plan of Treatment Upcoming Encounters Date Type Department Care Team (Late st Contact Info) Description 04/25/2024 Procedure Pass [address] [address] 10/25/2024 10:00 AM EDT Appointment [address] [address] Winston Harden, DO [address] [place] [address] [email or web address] 11/01/2024 2:00 PM EDT Office Visit [facility] at [address] [address] Winston Harden, [address] [address] [email or web address] documented as of this encounter Visit Diagnoses Not on filedocumented in this encounter Care Teams Video Tape Transferrer Relationship Specialty Start Date End Date Nitish Schuster MD [address] [place] [address] PCP - General Internal Medicine 12/20/23 Winston Harden DO [address] [place] [address] [email or web address] Hematology and Oncology 12/01/23 documented as of this encounter Additional Source Comments The information contained in this document represents components of the legal health record. It is not the complete legal health record.[facility]
[2024-09-09 11:36] LABS: Anion Gap 14 (12-20); Blood Urea Nitrogen 31 mg/dL (9-16); Carbon Dioxide 25 mmol/L (22-29); Chloride 106 mmol/L (96-108); Estimated Glomerular Filt Rate 37; Potassium 4.3 mmol/L (3.3-5.1); Sodium 141 mmol/L (135-145)
== END 2024-09-09 09:50 | disposition home or self-care (01) ==
LOC: HO.LAB 09:49
PROVIDERS: PCP Internal Medicine; Visit Provider Internal Medicine Nephrology
DX: I12.9 Hypertensive chronic kidney disease with stage 1 through stage 4 chronic kidney disease, or unspecified chronic kidney disease (principal); N18.31 Chronic kidney disease, stage 3a; Z90.5 Acquired absence of kidney
CPT/HCPCS: 36415; 80051; 82565; 84520

== ENCOUNTER 2024-09-13 09:35 | Outpatient (AMB) | payer OTHER, SELFPAY ==
--- OUTSIDE RECORDS SUMMARY | 2024-09-13 09:44 | XMS_ITS | Encounter Summary ---
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 on file Not on file No t on file documented as of this encounter Plan of Treatment Upcoming Encounters Date Type Department Care Team (Late st Contact Info) Description 04/25/2024 Procedure Pass [address] [address] 10/25/2024 10:00 AM EDT Appointment [address] [address] Winston Harden, DO [address] [place] [address] [email or web address] 11/01/2024 2:00 PM EDT Office Visit [facility] at [address] [address] Winston Harden, [address] [address] [email or web address] documented as of this encounter Visit Diagnoses Not on filedocumented in this encounter Care Teams Furnace Process Supervisor Relationship Specialty Start Date End Date Nitish Schuster MD [address] [place] [address] PCP - General Internal Medicine 12/20/23 Winston Harden DO [address] [place] [address] [email or web address] Hematology and Oncology 12/01/23 documented as of this encounter Additional Source Comments The information contained in this document represents components of the legal health record. It is not the complete legal health record.[facility]
--- NOTE | 2024-09-13 09:46 | HO.NEPHOV_ITS ---
Vital Signs 09/13/24 09:47 Height 5 ft 10 in Weight 257 lb 2 oz BMI 36.9 BP 126/74 Blood Pressure Location Rt brachial Position Sitting Pulse 70 Pulse Source Pulse Oximeter Pulse Oximetry (%) 96 Oxygen Delivery Method Room Air Intake Visit Reasons: FU/ Conf Oracle Fusion Developer Required: No Accompanied by: Self / Same As Patient Allergies No Known Allergies Allergy (Verified 09/13/24 09:47) HPI Comments Details: Bobo was seen in follow up for his chronic kidney disease. He has history of prostate cancer in 2019 which has been treated with external radiation beam therapy. Subsequently was found to have right renal mass and underwent right nephrectomy. He now has a nonmalignant cystic lesion on the left kidney. He was known to have lung nodules which are not metastatic lesions. He has no B symptoms. He closely follows up with Dr. Billy. He does not have any hematuria, dysuria, flank pain, night sweats, weight loss, fever. His serum creatinine had been going up. He does not take nonsteroidal anti-inflammatories on a regular basis. He is known to be hypertensive. He has not a diabetic. He denies chest pain, shortness of breath, paroxysmal nocturnal dyspnea, orthopnea, pedal edema, epistaxis, hemoptysis, photosensitivity, skin rashes, recurrent sinusitis, sore throat, new bone or back pain. He has no history of hepatitis. He had a biopsy of the lesion on the solitary kidney which was found to be benign. His serum creatinine is stable [facility] Medical History Benign neoplasm of unspecified kidney Personal history of malignant neoplasm of renal pelvis Personal history of malignant neoplasm of prostate Nocturia Benign prostatic hyperplasia with lower urinary tract symptoms Surgical History H/O total adrenalectomy History of nephrectomy, right History of tonsillectomy Family History Mother Hypertension Father Hypertension Leukemia Prostate cancer Social History Alcohol intake: current Comment: Rare Patient Tobacco Use Status: Never used Tobacco Review of Systems Const All systems reviewed & are unremarkable except as noted in HPI and below Physical Exam Vital Signs: Last Vital Signs Pulse 70 09/13/24 09:47 BP 126/74 09/13/24 09:47 Pulse Ox 96 09/13/24 09:47 Oxygen Delivery Method Room Air 09/13/24 09:47 BMI result Body Mass Index 36.9 Const General: comfortable and no acute distress Orientation/consciousness: patient oriented x3 HEENT Head: Yes normocephalic Mouth: Normal oral and palatal mucosa present Eyes EOM: EOMs intact bilaterally Neck Neck: Yes supple Resp Auscultation: clear to auscultation bilaterally Cardio Jugular venous distension: no JVD Rate: regular rate GI Palpation (GI): Soft to palpation Auscultation: normal bowel sounds General: Yes no CVA tenderness Back/Spine/Pelvis Back: no CVA tenderness Skin General skin exam: no rashes or lesions noted Neuro General: patient oriented x3 and moves all extremities Extrem General: Yes no pedal edema Results Reviewed Nephrology Results: Hgb, (14.0-18.0) 14.2 g/dl 05/17/24 WBC, (4.8-10.8) 7.0 X10*3/uL 05/17/24 Plt Count, (160-400) 288 X10*3/uL Δ 05/17/24 Sodium, (135-145) 141 mmol/L 09/09/24 Potassium, (3.3-5.1) 4.3 mmol/L 09/09/24 Chloride, (96-108) 106 mmol/L 09/09/24 Carbon Dioxide, (22-29) 25 mmol/L 09/09/24 BUN, (9-16) 31 mg/dL H 09/09/24 Creatinine, (0.5-1.4) 1.84 mg/dL H 09/09/24 Urine Creatinine 129.11 mg/dL 05/17/24 Protein/Creatinin Ratio, (<0.2) 0.43 H 05/17/24 Renal US 05/19/23 Assessment & Plan Assessment & Plan (1) Hypertension: Code(s): I10 - Essential (primary) hypertension Category: Medical Qualifiers: Hypertension type: primary hypertension Qualified Code(s): I10 - Essential (primary) hypertension (2) CKD (chronic kidney disease) stage 3, GFR 30-59 ml/min: Code(s): N18.30 - Chronic kidney disease, stage 3 unspecified Category: Medical Qualifiers: Chronic kidney disease stage 3 subtype: stage 3a (GFR 45-59) Qualified Code(s): N18.31 - Chronic kidney disease, stage 3a (3) Solitary kidney, acquired: Code(s): Z90.5 - Acquired absence of kidney Category: Medical (4) Renal cyst, acquired, left: Code(s): N28.1 - Cyst of kidney, acquired Category: Medical Plan Bobo has acquired solitary kidney status post right nephrectomy for renal cell carcinoma. He has history of prostate cancer. He has no metastatic lesions. His urine output is good. His volume status is optimal. His blood pressure is not at goal. He should continue losartan 25 mg daily. He does not have any renal artery stenosis by imaging. His last creatinine clearance was 75 mL/minute prior to this OLIVIA. He should maintain good hydration and avoid nonsteroidal anti-inflammatories. He will benefit from weight loss. He will be a great candidate for SGLT2 i. I did not make any other medication changes today. All these have been discussed in detail. Further management is pending evolving data. Answered all questions. Orders: Orders Vitamin D 25-OH Total 4 Months I10 - Essential (primary) hypertension, N18.31 - Chronic kidney disease, stage 3a, N28.1 - Cyst of kidney, acquired, Z90.5 - Acquired absence of kidney Protein Creatinine Ratio, Ur 4 Months I10 - Essential (primary) hypertension, N18.31 - Chronic kidney disease, stage 3a, N28.1 - Cyst of kidney, acquired, Z90.5 - Acquired absence of kidney Parathyroid Hormone Intact 4 Months I10 - Essential (primary) hypertension, N18.31 - Chronic kidney disease, stage 3a, N28.1 - Cyst of kidney, acquired, Z90.5 - Acquired absence of kidney Creatinine 4 Months I10 - Essential (primary) hypertension, N18.31 - Chronic kidney disease, stage 3a, N28.1 - Cyst of kidney, acquired, Z90.5 - Acquired absence of kidney Blood Urea Nitrogen 4 Months I10 - Essential (primary) hypertension, N18.31 - Chronic kidney disease, stage 3a, N28.1 - Cyst of kidney, acquired, Z90.5 - Acquired absence of kidney Electrolytes 4 Months I10 - Essential (primary) hypertension, N18.31 - Chronic kidney disease, stage 3a, N28.1 - Cyst of kidney, acquired, Z90.5 - Acquired absence of kidney Coding Level of Care Code Est Pt Level 4 (28801) Diagnoses Primary hypertension I10 Hypertension type: primary hypertension Stage 3a chronic kidney disease N18.31 Chronic kidney disease stage 3 subtype: stage 3a (GFR 45-59) Solitary kidney, acquired Z90.5 Renal cyst, acquired, left N28.1
[2024-09-13 09:47] VITALS: BP 126/74; PULSE 70; O2SAT 96; BMI 36.9
== END 2024-09-13 10:19 | disposition home or self-care (01) ==
LOC: HO.HKA 09:36
PROVIDERS: PCP Internal Medicine; Visit Provider Internal Medicine Nephrology
DX: I10 Essential (primary) hypertension (principal); N18.31 Chronic kidney disease, stage 3a; Z90.5 Acquired absence of kidney; N28.1 Cyst of kidney, acquired
CPT/HCPCS: 99214

== ENCOUNTER → 2024-09-13 09:35 | Outpatient (BNVA) | payer OTHER, SELFPAY | PROVIDERS: PCP Internal Medicine; Visit Provider Internal Medicine Nephrology | DX: I10 Essential (primary) hypertension (principal); N18.31 Chronic kidney disease, stage 3a; Z90.5 Acquired absence of kidney; N28.1 Cyst of kidney, acquired | CPT/HCPCS: 99212 ==

== ENCOUNTER 2025-01-13 11:00 | Outpatient (REF) | payer OTHER, SELFPAY ==
[2025-01-13 12:23] LABS: Parathyroid Hormone Intact 156.4 pg/mL (8.7-77.1)
[2025-01-13 12:39] LABS: Anion Gap 11 (12-20); Blood Urea Nitrogen 29 mg/dL (9-16); Carbon Dioxide 27 mmol/L (22-29); Chloride 106 mmol/L (96-108); Estimated Glomerular Filt Rate 35; Potassium 4.3 mmol/L (3.3-5.1); Sodium 140 mmol/L (135-145)
[2025-01-13 12:54] LABS: Protein/Creatinine Ratio, Ur 0.50 (<0.2); Total Protein Urine Random 40 mg/dL (<12)
--- OUTSIDE RECORDS SUMMARY | 2025-01-13 14:24 | XMS_ITS | Encounter Summary ---
Author Organization [facility] Address [address] [address] Phone Care Team Providers Care Loan Auditor Name Role Phone Kyrie Cali NP Primary Care Provide r Winston Harden DO Unavailable [phone] Nitish Schuster MD Primary Care Provider + Reason for Referral * MRI/CAT Scan - Closed Specialty Diagnoses / Procedures Referred By Contac t Referred To Contact Radiology Diagnoses Right shoulder pain, unspecified chronicity Procedures MRI Shoulder (Right) Kyrie Cali NP [address] [place] [address] Phone: tel: fax: Referral ID Status Reason Start Date Expiration Date Visits Re quested Visits Authorized [id number] Closed 02/25/2020 04/25/2020 1 1 Encounter Details Date Type Department Care Team (Latest Contact Info) Description 02/25/2020 Transcribe Orders Virtual Department [address] [place] [address] Kyrie Cali NP [address] [place] [address] Right shoulder pain, unspecified chronicity (Primary Dx) Social History Tobacco Use Types Packs/Day Years Used Date Smoking Tobacco: Former Cigars Q uit: 2010 Smokeless Tobacco: Never Alcohol Use Standard Drinks/Week Comments Yes 14 (1 standard drink = 0.6 oz pu re alcohol) 2 drinks per day Sex and Gender Information Value Date Recorded Sex Assigned at Not on file Legal Sex Male 9:56 PM EDT Gender Identity Not on file Sexual Orientation Not on file documented as of this encounter Plan of Treatment Upcoming Encounters Date Type Department Care Team (Late st Contact Info) Description 11/04/2024 Procedure Pass [address] [address] 10/21/2025 9:25 AM EDT Appointment [address] [address] Winston Harden, [address] [address] [email or web address] 11/05/2025 2:00 PM EDT Blood Draw [facility] [address] [address] Winston Harden, [address] [address] [email or web address] 11/05/2025 3:00 PM EDT Office Visit [facility] at [address] [address] Winston Harden [address] [address] [email or web address] documented as of this encounter Results * MRI SHOULDER WITHOUT CONTRAST (RIGHT) (03/08/2020 8:29 AM EST) Anatomical Region Laterality Modality Shoulder Right Magnetic Resonan ce 03/08/2020 12:2 2 PM EST Impressions 03/08/2020 12:28 PM EST 1.Partial-thickness supraspinatus tendon tear. 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 3.Diffusely attenuated labrum which is likely degenerative torn. 4.Subcoracoid bursitis. 5.Additional findings as above. Narrative 03/08/2020 12:28 PM EST COMPARISON: None. TECHNIQUE: Exam performed on a 1.5 Gricelda high-field MRI scanner. Axial T1 and proton density with fat suppression, oblique coronal proton density with fat suppression and T2 with fat suppression, oblique sagittal T1 and T2 with fat suppression sequences were obtained. MRI RIGHT SHOULDER FINDINGS: Acromion: No os acromiale. Type I acromion. Moderate lateral downsloping and small spur which may contribute to rotator cuff impingement. No anterior downsloping. Rotator cuff muscle/tendon: Diffusely thickened and T2 hyperintense distal supraspinatus muscle on the bursal surface. Findings consistent partial-thickness tear. No full-thickness tear. No rotator cuff muscle edema or atrophy. Labrum/biceps tendon: No biceps tendon tear. Diffusely attenuated labrum which may be due to degenerative tearing. Bone marrow/joint: Severe glenohumeral joint space narrowing with bony remodeling and large glenoid and humeral head osteophytes. Severe acromioclavicular joint space narrowing with small downward projecting osteophytes. No malalignment. Mild patchy T2 hyperintense marrow signal throughout the glenoid and humeral head which may be due to degenerative reactive marrow edema. There is a 2.3 cm thinly septated bone cyst within the humeral head which is most likely a degenerative cyst/geode. No destructive or suspicious bone lesions. Small joint effusion. No suprascapular or spinoglenoid notch mass. Small amount of fluid in the subcoracoid bursa. No fluid in the subacromial/subdeltoid bursa. Procedure Note Julian Mcdonnell MD - 03/08/2020 COMPARISON: None. TECHNIQUE: Exam performed on a 1.5 Gricelda high-field MRI scanner. Axial T1and proton density with fat suppression, oblique coronal proton densitywith fat suppression and T2 with fat suppression, oblique sagittal T1 andT2 with fat suppression sequences were obtained. MRI RIGHT SHOULDER FINDINGS: Acromion: No os acromiale. Type I acromion. Moderate lateral downslopingand small spur which may contribute to rotator cuff impingement. Noanterior downsloping. Rotator cuff muscle/tendon: Diffusely thickened and T2 hyperintensedistal supraspinatus muscle on the bursal surface. Findings consistentpartial-thickness tear. No full-thickness tear. No rotator cuff muscleedema or atrophy. Labrum/biceps tendon: No biceps tendon tear. Diffusely attenuated labrumwhich may be due to degenerative tearing. Bone marrow/joint: Severe glenohumeral joint space narrowing with bonyremodeling and large glenoid and humeral head osteophytes. Severeacromioclavicular joint space narrowing with small downward projectingosteophytes. No malalignment. Mild patchy T2 hyperintense marrow signalthroughout the glenoid and humeral head which may be due to degenerativereactive marrow edema. There is a 2.3 cm thinly septated bone cyst withinthe humeral head which is most likely a degenerative cyst/geode. Nodestructive or suspicious bone lesions. Small joint effusion. Nosuprascapular or spinoglenoid notch mass. Small amount of fluid in thesubcoracoid bursa. No fluid in the subacromial/subdeltoid bursa. IMPRESSION: 1.Partial-thickness supraspinatus tendon tear. 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 3.Diffusely attenuated labrum which is likely degenerative torn. 4.Subcoracoid bursitis. 5.Additional findings as above. Kyrie Cali NP IMG MR EXTREMITY La l Result documented in this encounter Visit Diagnoses Diagnosis Right shoulder pain, unspecified chronicity- Primary Right shoulder pain, unspecified chronicity documented in this encounter Care Teams Loan Auditor Relationship Specialty Start Date End Date Kyrie Cali NP [address] [place] [address] PCP - General Family Medicine 04/09/19 12/19/23 Nitish Schuster MD [address] [place] [address] PCP - General Internal Medicine 12/20/23 Winston Harden DO [address] [place] [address] [email or web address] Hematology and Oncology 12/01/23 documented as of this encounter Additional Source Comments The information contained in this document represents components of the legal health record. It is not the complete legal health record.[facility]
--- OUTSIDE RECORDS SUMMARY | 2025-01-13 14:24 | XMS_ITS | Encounter Summary ---
Author Organization [facility] Address [address] 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 on file No t on file documented as of this encounter Plan of Treatment Upcoming Encounters Date Type Department Care Team (Late st Contact Info) Description 11/04/2024 Procedure Pass [address] [address] 10/21/2025 9:25 AM EDT Appointment [address] [address] Winston Harden, [address] [address] [email or web address] 11/05/2025 2:00 PM EDT Blood Draw [facility] [address] [address] Winston Harden, [address] [address] PAMELLA@[email or web address] 11/05/2025 3:00 PM EDT Office Visit [facility] at [address] [address] Winston Harden, [address] [address] PAMELLA@[email or web address] documented as of this encounter Visit Diagnoses Not on filedocumented in this encounter Care Teams Motorized Squad Commanding Officer Relationship Specialty Start Date End Date Kyrie Cali NP [address] [place] [address] PCP - General Family Medicine 04/09/19 12/19/23 Nitish Schuster MD [address] [place] [address] PCP - General Internal Medicine 12/20/23 Winston Harden DO [address] [place] [address] [email or web address] Hematology and Oncology 12/01/23 documented as of this encounter Additional Source Comments The information contained in this document represents components of the legal health record. It is not the complete legal health record.[facility]
--- OUTSIDE RECORDS SUMMARY | 2025-01-13 14:24 | XMS_ITS | Encounter Summary ---
Author Organization [facility] Address [address] [place] [address] Phone Care Team Providers Care Registered Nurse Nursery Name Role Phone Kyrie Cali NP Primary Care Provide r Winston Harden DO Unavailable [phone] Nitish Schuster MD Primary Care Provider + Encounter Details Date Type Department Care Team (Late st Contact Info) Description 05/13/2021 Procedure Pass [address] [address] Social History Tobacco Use Types Packs/Day Years Used Date Smoking Tobacco: Former Cigars Smokeless Tobacco: Never Comments:Smokes cigars for 5 years, quit for greater than 10 years Alcohol Use Standard Drinks/Week Comments Yes 15 (1 standard drink = 0.6 oz pu re alcohol) confirmed 05/21/21 Sex and Gender Information Value Date Recorded Sex Assigned at Not on file Legal Sex Male 9:56 PM EDT Gender Identity Not on file Sexual Orientation Not on file 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 on file No t on file documented as of this encounter Plan of Treatment Upcoming Encounters Date Type Department Care Team (Late st Contact Info) Description 11/04/2024 Procedure Pass [address] [address] 10/21/2025 9:25 AM EDT Appointment [address] [place] [address] Fina Winston Ruby, DO [address] [place] [address] [email or web address] 11/05/2025 2:00 PM EDT Blood Draw [facility] [address] [address] Winston Harden, DO [address] [place] [address] [email or web address]@[email or web address] 11/05/2025 3:00 PM EDT Office Visit [facility] at [address] [address] Winston Harden, [address] [address] PAMELLA@[email or web address] documented as of this encounter Visit Diagnoses Not on filedocumented in this encounter Care Teams Registered Nurse Nursery Relationship Specialty Start Date End Date Kyrie Cali NP [address] [place] [address] PCP - General Family Medicine 04/09/19 12/19/23 Nitish Schuster MD [address] [place] [address] PCP - General Internal Medicine 12/20/23 Winston Harden DO [address] [place] [phone] [email or web address] Hematology and Oncology 12/01/23 documented as of this encounter Additional Source Comments The information contained in this document represents components of the legal health record. It is not the complete legal health record.[facility]
--- OUTSIDE RECORDS SUMMARY | 2025-01-13 14:24 | XMS_ITS | Encounter Summary ---
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 Wish to be (Past 1 Month) No 022 5:19 PM EDT Asuncion Marr, SANJAY 2. Non-Specific Active Suici gianfranco Thoughts (Past 1 Month) No 05/21/2021 5:19 PM EDT Deepti Marr RN 6. Suicidal Behavior (Lifetime) No 5:19 PM EDT Asuncion Marr, RN documented as of this encounter Plan of Treatment Upcoming Encounters Date Type Department Care Team (Late st Contact Info) Description 11/04/2024 Procedure Pass [address] [address] 10/21/2025 9:25 AM EDT Appointment [address] [address] Winston Harden, [address] [address] PAMELLA@[facility] 11/05/2025 2:00 PM EDT Blood Draw [facility] Phleb [address] [address] Winston Harden, [address] [address] PAMELLA@[facility] 11/05/2025 3:00 PM EDT Office Visit [facility] at [address] [address] Winston Harden, [address] [address] PAMELLA@[facility] documented as of this encounter Visit Diagnoses Not on filedocumented in this encounter Care Teams Accounts Receivable Supervisor Relationship Specialty Start Date End Date Kyrie Cali NP [address] [place] [address] PCP - General Family Medicine 04/09/19 12/19/23 Nitish Schuster MD [address] [place] [address] PCP - General Internal Medicine 12/20/23 Winston Harden DO [address] [place] [address] [email or web address] Hematology and Oncology 12/01/23 documented as of this encounter Additional Source Comments The information contained in this document represents components of the legal health record. It is not the complete legal health record.[facility]
--- OUTSIDE RECORDS SUMMARY | 2025-01-13 14:24 | XMS_ITS | Encounter Summary ---
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 Not on file No t on file documented as of this encounter Plan of Treatment Upcoming Encounters Date Type Department Care Team (Late st Contact Info) Description 11/04/2024 Procedure Pass [address] [address] 10/21/2025 9:25 AM EDT Appointment [address] [address] Winston Harden, [address] [address] PAMELLA@[facility] 11/05/2025 2:00 PM EDT Blood Draw [facility] Phleb [address] [address] Winston Harden, [address] [address] PAMELLA@[facility] 11/05/2025 3:00 PM EDT Office Visit [facility] at [address] [address] Winston Harden [address] [address] PAMELLA@[facility] documented as of this encounter Visit Diagnoses Not on filedocumented in this encounter Care Teams Plastics Engineer Relationship Specialty Start Date End Date Nitish Schuster MD [address] [place] [address] PCP - General Internal Medicine 12/20/23 Winston Harden DO [address] [place] [address] PAMELLA@[facility] Hematology and Oncology 12/01/23 documented as of this encounter Additional Source Comments The information contained in this document represents components of the legal health record. It is not the complete legal health record.[facility]
--- OUTSIDE RECORDS SUMMARY | 2025-01-13 14:24 | XMS_ITS | Encounter Summary ---
Author Organization [facility] Address [address] [facility] [address] [place] [address] Phone Care Team Providers Care Chinese Herbalist Name Role Phone Kyrie Cali NP Primary Care Provide r Winston Harden DO Unavailable [phone] Nitish Schuster MD Primary Care Provider + Encounter Details Date Type Department Care Team (Late st Contact Info) Description 12/05/2023 Procedure Pass [facility], Ct Scan - [address] [address] Social History Tobacco Use Types Packs/Day Years [...] st Contact Info) Description 11/04/2024 Procedure Pass [address] [address] 10/21/2025 9:25 AM EDT Appointment [address] [address] Winston Harden, [address] [address] PAMELLA@[facility] 11/05/2025 2:00 PM EDT Blood Draw [facility] Phleb [address] [address] Winston Harden [address] [address] PAMELLA@[facility] 11/05/2025 3:00 PM EDT Office Visit [facility] at [address] [address] Winston Harden [address] [address] PAMELLA@[facility] documented as of this encounter Visit Diagnoses Not on filedocumented in this encounter Care Teams Chinese Herbalist Relationship Specialty Start Date End Date Kyrie Cali NP [address] [place] [address] PCP - General Family Medicine 04/09/19 12/19/23 Nitish Schuster MD [address] [place] [address] PCP - General Internal Medicine 12/20/23 Winston Harden DO [address] [place] [address] PAMELLA@[email or web address] Hematology and Oncology 12/01/23 documented as of this encounter Additional Source Comments The information contained in this document represents components of the legal health record. It is not the complete legal health record.[facility]
--- OUTSIDE RECORDS SUMMARY | 2025-01-13 14:24 | XMS_ITS | Encounter Summary ---
Author Organization [facility] Address [address] [address] Phone Care Team Providers Care Tc Operator Name Role Phone Kyrie Cali NP Primary Care Provide r Winston Harden DO Unavailable [phone] Nitish Schuster MD Primary Care Provider + Encounter Details Date Type Department Care Team (Latest Contact Info) Description 09/12/2019 Transcribe Orders Virtual Department [address] [place] [address] Kyrie Cali, KATE [address] [place] [address] Right shoulder pain, unspecified chronicity (Primary Dx) [...] Contact Info) Description 11/04/2024 Procedure Pass [address] [address] 10/21/2025 9:25 AM EDT Appointment [address] [place] [address] Fina Montero Ruby, DO [address] [place] [address] PAMELLA@[facility] 11/05/2025 2:00 PM EDT Blood Draw [facility] Phleb [address] [address] Winston Harden, DO [address] [place] [address] PAMELLA@[facility] 11/05/2025 3:00 PM EDT Office Visit [facility] at [address] [address] Winston Harden, [address] [address] PAMELLA@[facility] documented as of this encounter Visit Diagnoses Diagnosis Right shoulder pain, unspecified chronicity- Primary documented in this encounter Care Teams Tc Operator Relationship Specialty Start Date End Date Kyrie Cali NP [address] [place] [address] PCP - General Family Medicine 04/09/19 12/19/23 Nitish Schuster MD [address] [place] [address] PCP - General Internal Medicine 12/20/23 Winston Harden DO [address] [place] [address] PAMELLA@[facility] Hematology and Oncology 12/01/23 documented as of this encounter Additional Source Comments The information contained in this document represents components of the legal health record. It is not the complete legal health record.[facility]
--- OUTSIDE RECORDS SUMMARY | 2025-01-13 14:24 | XMS_ITS | Encounter Summary ---
Author Organization [facility] Address [address] [place] [address] Phone Care Team Providers Care [place]en [place]ade Hardware Installer Name Role Phone Kyrie Cali NP Primary Care Provide r Winston Harden DO Unavailable [phone] Nitish Schuster MD Primary Care Provider + Encounter Details Date Type Department Care Team (Late st Contact Info) Description 04/09/2019 Procedure Pass [facility] Endoscopy Admitting Dept Virtual Department [address] [place] [address] Social History Tobacco Use Types Packs/Day Years [...] st Contact Info) Description 11/04/2024 Procedure Pass [address] [address] 10/21/2025 9:25 AM EDT Appointment [address] [address] Winston Harden, DO [address] [place] [address] [email or web address]@[email or web address] 11/05/2025 2:00 PM EDT Blood Draw [facility] Phleb [facility] [address] [place] [address] Winston Harden, DO [address] [place] [address] [email or web address]@[email or web address] 11/05/2025 3:00 PM EDT Office Visit [facility] [place] [address] [place] [address] Winston Harden, [address] [place] [address] PAMELLA@[facility] documented as of this encounter Visit Diagnoses Not on filedocumented in this encounter Care Teams Wooden Shade Hardware Installer Relationship Specialty Start Date End Date Kyrie Cali NP [address] [place] [address] PCP - General Family Medicine 04/09/19 12/19/23 Nitish Schuster MD [address] [place] [address] PCP - General Internal Medicine 12/20/23 Winston Harden DO [address] [place] [address] PAMELLA@[email or web address] Hematology and Oncology 12/01/23 documented as of this encounter Additional Source Comments The information contained in this document represents components of the legal health record. It is not the complete legal health record.[facility]
--- OUTSIDE RECORDS SUMMARY | 2025-01-13 14:24 | XMS_ITS | Encounter Summary ---
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 on file No t on file documented as of this encounter Plan of Treatment Upcoming Encounters Date Type Department Care Team (Late st Contact Info) Description 11/04/2024 Procedure Pass [address] [address] 10/21/2025 9:25 AM EDT Appointment [address] [address] Winston Harden, [address] [address] PAMELLA@[facility] 11/05/2025 2:00 PM EDT Blood Draw [facility] Phleb [address] [address] Winston Harden, [address] [address] PAMELLA@[facility] 11/05/2025 3:00 PM EDT Office Visit [facility] at [address] [address] Winston Harden [address] [address] PAMELLA@[facility] documented as of this encounter Visit Diagnoses Not on filedocumented in this encounter Care Teams Complaint Inspector Relationship Specialty Start Date End Date Nitish Schuster MD [address] [place] [address] PCP - General Internal Medicine 12/20/23 Winston Harden DO [address] [place] [address] PAMELLA@[email or web address] Hematology and Oncology 12/01/23 documented as of this encounter Additional Source Comments The information contained in this document represents components of the legal health record. It is not the complete legal health record.[facility]
--- OUTSIDE RECORDS SUMMARY | 2025-01-13 14:24 | XMS_ITS | Encounter Summary ---
Author Organization [facility] Address 399 [employer] [facility] [address] [place] [address] Phone Care Team Providers Care Record Filing Clerk Name Role Phone Kyrie Cali NP Primary Care Provide r Winston Harden DO Unavailable [phone] Nitish Schuster MD Primary Care Provider + Encounter Details Date Type Department Care Team (Late st Contact Info) Description 05/25/2021 Ancillary Orders [facility],Outside Imaging [address] [place] [address] System, Provider Not In, PhD [address] [address] Social History Tobacco Use Types Packs/Day Years [...] Job Start Date 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 [address] [place] [address] 10/21/2025 9:25 AM EDT Appointment [facility], Mri - [address] [address] Winston Harden, DO [address] [place] [address] [email or web address]@[email or web address] 11/05/2025 2:00 PM EDT Blood Draw [facility] Phleb [address] [address] Winston Harden, DO [address] [place] [address] PAMELLA@[facility] 11/05/2025 3:00 PM EDT Office Visit [facility] at [address] [address] Winston Harden, [address] [address] PAMELLA@[facility] documented as of this encounter Results * MRI Abdomen Outside (No Interpretation) (04/23/2021 12:00 AM EST) Narrative SYSTEMGENERATED, DOCUMENTATION - 05/25/2021 6:03 PM EDT This study is for PACS storage only and not for interpretation. us Provider Not In System PhD IMG OUTSIDE IMAGING W /OUT INTERPRETATION Final Result documented in this encounter Visit Diagnoses Not on filedocumented in this encounter Care Teams Record Filing Clerk Relationship Specialty Start Date End Date Kyrie Cali NP [address] [place] [address] PCP - General Family Medicine 04/09/19 12/19/23 Nitish Schuster MD [address] [place] [address] PCP - General Internal Medicine 12/20/23 Winston Harden DO [address] [place] [address] PAMELLA@[email or web address] Hematology and Oncology 12/01/23 documented as of this encounter Additional Source Comments The information contained in this document represents components of the legal health record. It is not the complete legal health record.[facility]
--- OUTSIDE RECORDS SUMMARY | 2025-01-13 14:24 | XMS_ITS | Encounter Summary ---
Author Organization [facility] Address [address] [address] Phone Care Team Providers Care Driver Service Technician Name Role Phone Kyrie Cali NP Primary Care Provide r Winston Harden DO Unavailable [phone] Nitish Schuster MD Primary Care Provider + Reason for Referral * MRI/CAT Scan - Closed Specialty Diagnoses / Procedures Referred By Adore t Referred To Contact Radiology Diagnoses Neoplasm of uncertain behavior of kidney, unspecified laterality Procedures CT Chest CHG DIAGNOSTIC COMPUTED TOMOGRAPHY THORAX W/CONTRAST CHG DIAGNOSTIC COMPUTED TOMOGRAPHY THORAX W/O CNTRST CHG DIAGNOSTIC COMPUTED TOMOGRAPHY THORAX C-/C+ Jose Billy MD Phone: tel: fax: mailto:[email or web address] Referral ID Status Reason Start Date Expiration Date Visits Re quested Visits Authorized [id number] Closed 05/13/2021 10/26/2021 1 1 Encounter Details Date Type Department Care Team (Latest Contact Info) Description 05/13/2021 Transcribe Orders [facility] Department [address] [place] [address] Jose Billy MD [address] [place] [address], [address] [address] Neoplasm of uncertain behavior of kidney, unspecified laterality (Primary Dx) Social History Tobacco Use Types [...] st Contact Info) Description 11/04/2024 Procedure Pass [address] [address] 10/21/2025 9:25 AM EDT Appointment [address] [address] Winston Harden, [address] [address] PAMELLA@[facility] 11/05/2025 2:00 PM EDT Blood Draw [facility] Phleb [address] [address] Winston Harden, [address] [address] PAMELLA@[facility] 11/05/2025 3:00 PM EDT Office Visit [facility] at [address] [address] Winston Harden, [address] [address] PAMELLA@[facility] documented as of this encounter Results * CT CHEST WITH CONTRAST (06/09/2021 8:21 AM EDT) Anatomical Region Laterality Modality Chest Computed Tomogra phy 06/09/2021 6:28 PM EDT Impressions 06/09/2021 6:38 PM EDT 1. Multiple sub-6 mm bilateral pulmonary nodules, many of which are clearly calcified granulomata but the rest are indeterminate. Short interval non-enhanced chest CT follow-up recommended. 2. No other significant thoracic pathology or evidence of metastatic disease. POS - [id number] Narrative 06/09/2021 6:38 PM EDT Contrast enhanced exam. No comparison FINDINGS: 7 mm densely calcified granuloma peripheral right upper lobe (4: 1:15). 4 mm noncalcified nodule anterior right upper lobe (4:142). 3 mm fissural noncalcified nodules right middle lobe (4:171, 173) 6 mm calcified granuloma right lower lobe (4:188). 3 mm noncalcified nodule right lower lobe (4:192). Multiple additional bilateral 3-4 mm calcified granulomata and noncalcified nodules scattered through both mid and lower lung stein. The largest noncalcified nodule measures 6 mm maximal in the lateral left base (4:244). No infiltrate is tissue disease. No bronchial dilatation, wall thickening or filling defects. No pleural or pericardial effusion. No significant adenopathy. Moderate coronary artery calcification. Otherwise the heart and great vessels are unremarkable. No thyroid, esophageal or left adrenal pathology (right adrenal not seen). No evidence of skeletal metastatic disease. Procedure Note Hugo Bates MD - 06/09/2021 Contrast enhanced exam. No comparison FINDINGS: 7 mm densely calcified granuloma peripheral right upper lobe (4: 1:15). 4 mm noncalcified nodule anterior right upper lobe (4:142). 3 mm fissural noncalcified nodules right middle lobe (4:171, 173) 6 mm calcified granuloma right lower lobe (4:188). 3 mm noncalcified nodule right lower lobe (4:192). Multiple additional bilateral 3-4 mm calcified granulomata andnoncalcified nodules scattered through both mid and lower lung stein. Thelargest noncalcified nodule measures 6 mm maximal in the lateral left base(4:244). No infiltrate is tissue disease. No bronchial dilatation, wall thickening or filling defects. No pleural or pericardial effusion. No significant adenopathy. Moderate coronary artery calcification. Otherwise the heart and greatvessels are unremarkable. No thyroid, esophageal or left adrenal pathology (right adrenal notseen). No evidence of skeletal metastatic disease. IMPRESSION: 1. Multiple sub-6 mm bilateral pulmonary nodules, many of which areclearly calcified granulomata but the rest are indeterminate. Shortinterval non-enhanced chest CT follow-up recommended. 2. No other significant thoracic pathology or evidence of metastaticdisease. 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, unspecified laterality documented in this encounter Care Teams Driver Service Technician Relationship Specialty Start Date End Date Kyrie Cali NP [address] [place] [address] PCP - General Family Medicine 04/09/19 12/19/23 Nitish Schuster MD [address] [place] [address] PCP - General Internal Medicine 12/20/23 Winston Harden DO [address] [place] [address] PAMELLA@[email or web address] Hematology and Oncology 12/01/23 documented as of this encounter Additional Source Comments The information contained in this document represents components of the legal health record. It is not the complete legal health record.[facility]
--- OUTSIDE RECORDS SUMMARY | 2025-01-13 14:25 | XMS_ITS | Encounter Summary ---
Author Organization [facility] Address [address] [place] [address] Phone Care Team Providers Care Blending Line Attendant Name Role Phone Kyrie Cali NP Primary Care Provide r Winston Harden DO Unavailable [phone] Nitish Schuster MD Primary Care Provider + Encounter Details Date Type Department Care Team (Late st Contact Info) Description 02/25/2020 Procedure Pass [address] [address] Social History Tobacco Use Types Packs/Day Years [...] st Contact Info) Description 11/04/2024 Procedure Pass [address] [address] 10/21/2025 9:25 AM EDT Appointment [address] [address] Winston Harden, DO [address] [place] [address] [email or web address]@[email or web address] 11/05/2025 2:00 PM EDT Blood Draw [facility] Phleb [facility] [address] [place] [address] Winston Harden, DO [address] [place] [address] RENATEOME@[email or web address] 11/05/2025 3:00 PM EDT Office Visit [facility] at [facility] [place] [address] [place] [address] Winston Harden DO 30 [place] [address] PAMELLA@[email or web address] documented as of this encounter Visit Diagnoses Not on filedocumented in this encounter Care Teams Blending Line Attendant Relationship Specialty Start Date End Date Kyrie Cali NP [address] [place] [address] PCP - General Family Medicine 04/09/19 12/19/23 Nitish Schuster MD [address] [place] [address] PCP - General Internal Medicine 12/20/23 Winston Harden DO [address] [place] [address] PAMELLA@[facility] Hematology and Oncology 12/01/23 documented as of this encounter Additional Source Comments The information contained in this document represents components of the legal health record. It is not the complete legal health record.[facility]
--- OUTSIDE RECORDS SUMMARY | 2025-01-13 14:25 | XMS_ITS | Clinical Summary ---
Author Organization [facility] Address [address] [facility] [address] [place] [address] Phone Care Team Providers Care Technical Healthcare Consultant Name Role Phone Winston Harden DO Unavailable [phone] Niitsh Schuster MD Primary Care Provider + Allergies No known active allergies Medications ARIPiprazole (ABILIFY) 15 MG tablet Take 15 mg by mouth every morning. Active venlafaxine (EFFEXOR-XR) 150 MG 24 hr capsule Take 300 mg by mouth every morning. Active amLODIPine (NORVASC) 10 MG tablet Take 10 mg by mouth nightly at bedtime. Active simvastatin (ZOCOR) 80 MG tablet Take 80 mg by mouth nightly at bedtime. Active losartan (COZAAR) 25 MG tablet Take 25 mg by mouth nightly at bedtime. Active aspirin 81 MG EC tablet Take 81 mg by mouth nightly at bedtime. Active multivitamin-mi nerals-lutein (CENTRUM SILVER) Tab Take 1 tablet by mouth every morning. Active hydroCHLOROthia zide (HYDRODIURIL) 25 MG tablet Take 25 mg by mouth daily. Active vitamins A,C,E-zinc-dain er (PRESERVISION AREDS) 14,320-226-200 [id number]-bj-xajj Cap Take 1 capsule by mouth 2 (two) times a day with meals. Active HYDROcodone-roula taminophen (NORCO) 5-325 mg per tablet Take 1-2 tablets by mouth every 4 (four) hours as needed. Partial fill ok 20 tablet 2 Active Additional Information Patient not taking.Reported on 12/20/2023 Active Problems Patient Care Coordination No te Formatting of this note migh t be different from the original. WEIGHT 256.7 ON 12/20/2023 BY HEIGHT 5'10 ON 12/20/2023 BY BP 143/89 ON 12/20/2023 BY Problem Noted Date Diagnosed Date Encounter for preoperative s creening laboratory testing for COVID-19 virus 05/21/2021 Marijuana use 05/21/2021 Overview (05/21/2021): for insomnia, nightly Assessment & Plan (05/22/2021 12:49 PM EDT): Used nightly for insomnia -Melatonin or Ambien Hypertensive disorder 05/21/2021 Assessment & Plan (05/22/2021 12:48 PM EDT): Patient is on multiple antihypertensives at home including amlodipine, hydrochlorothiazide and losartan -Hydrochlorothiazide held while getting IVF -continue amlodipine and losartan BPH (benign prostatic hyperplasia) 05/21/2021 Anxiety 05/21/2021 Assessment & Plan (05/23/2021 1:27 PM EDT): Stable - continue aripiprazole and venlafaxine. Arthritis 05/21/2021 Assessment & Plan (05/23/2021 1:27 PM EDT): Tylenol as needed Tobacco use 05/21/2021 Renal mass 05/21/2021 Assessment & Plan (05/23/2021 1:28 PM EDT): Renal mass discovered as an incidental finding on surveillance imaging of the abdomen due to history of adrenal lesion. Found just several weeks ago, now status post right nephrectomy. -Postop day #2, postop ileus noted with some dry heaves this morning -Encourage the patient to ambulate -Zamorano removed -Discussed with Dr. 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 No evidence of alcohol withdrawal. -No history of withdrawal -Follow [facility] Encounters Date Type Department Care Team Description 11/04/2024 2:30 PM EDT Office Visit [facility] at [address] [address] Winston Harden DO Renal mass (Primary Dx) 10/25/2024 9:41 AM EDT - 10/25/2024 11:59 PM EDT Hospital Encounter [facility], [address] [address] Winston Harden, Discharge Disposition: Home or Self Care 04/25/2024 Procedure Pass [address] [address] from Last 3 Months Immunizations Immunization Administration Dates Next Due Anthrax 09/02/2003, 3,03/19/2002,02/18,02/02/2002 Influenza Quadrivalent Adjuv anted Preservative Free IM 12/24/2020 Influenza Quadrivalent Prese rvative Free IM 12/07/2018 Influenza, Unspecified Formulation 12/29/2021, MMR 11/12/2002,06/24/1998 Meningococcal MPSV4 06/24/1998 Novel [id number], Injectable 06/13/2009 Pneumococcal polysaccharide PPSV23 09/02/2019 Tdap 12/26/2022,06/19/2011 Tetanus toxoid, adsorbed 04/13/2011 Typhoid, ViCPs 04/13/2011 Yellow Fever 07/15/1995 Zoster recombinant 08/12/2019,01/25/2019 Family History Medical History Relation Comments Hypertension Father Leukemia Father Prostate cancer Father Hypertension Mother Prostate cancer Paternal Grandfather Relation Status Comments Father Mother Paternal Grandfather Social History Tobacco Use Types Packs/Day Years [...] Job Start Date Job End Date 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 Not on file Not on file No t on file Last Filed Vital Signs Vital Sign Reading Time Taken Comments Blood Pressure 155/93 11/04/2024 2:26 PM EDT 2nd BP reading- 143/87 Pulse 82 11/04/2024 2:26 PM EDT Temperature 36.8 C (98.2 F) 11/04/2024 2:26 PM EDT Respiratory Rate 16 12/05/2023 12:0 0 PM EDT Oxygen Saturation 94% 11/04/2024 2:2 6 PM EDT Inhaled Oxygen Concentration - - Weight 117.5 kg (259 lb) 11/04/2024 2:2 4 PM EDT Height 177.8 cm (5' 10 ) 11/04/2024 2:2 4 PM EDT Body Mass Index 37.16 11/04/2024 2:24 PM EDT Plan of Treatment Upcoming Encounters Date Type Department Care Team (Late st Contact Info) Description 11/04/2024 Procedure Pass [facility], [address] [address] 10/21/2025 9:25 AM EDT Appointment [address] [address] Winston Harden, [address] [address] [email or web address] 11/05/2025 2:00 PM EDT Blood Draw [facility] [address] [address] Winston Harden, [address] [address] [email or web address] 11/05/2025 3:00 PM EDT Office Visit [facility] at [address] [address] Winston Harden, [address] [address] [email or web address] Health Maintenance Due Date Last Done Comments LIPID PANEL 1955 DEPRESSION SCREENING 1966 HEPATITIS C SCREENING 02/21/1972 COLOGUARD 1999 FIT TEST 1999 FOBT 1999 SIGMOIDOSCOPY 1999 VIRTUAL COLONOSCOPY 1999 ABDOMINAL AORTIC ANEURYSM (AAA) SCREENING 2019 PNEUMOCOCCAL VACCINES (50+ years) (2 of 2 - PCV) 09/01/2020 09/02/2019 INFLUENZA VACCINE (#1) 2024 2, 12/24/2020, 10/22/2019, Additional history exists COVID-19 VACCINE ( season) 2024 12/24/2020, 05/13/2020, 04/15/2020 CREATININE LEVEL 12/04/2024 12/05/2023, 12/2021, 05/23/2021, Additional history exists POTASSIUM LEVEL 12/04/2024 12/05/2023, 0402/2021, 05/23/2021, Additional history exists SMOKING Hx and SMOKELESS TOBACCO SCREENING 04/25/2025 04/25/2024 BLOOD PRESSURE 05/04/2025 11/04/2024 RSV VACCINE (1 - 1-dose 75+ series) 2029 COLONOSCOPY 04/09/2029 04/09/2019 COLORECTAL CANCER SCREENING 04/09/2029 Adult Td,Tdap Booster 12/26/2032 12/26/2022 , 06/19/2011, 04/13/2011 MENINGOCOCCAL VACCINES (ACWY) Aged Out 06/24/1998 No longer eligible based on patient's age to complete this topic ZOSTER VACCINES Completed 08/12/2019, 01/25/2019 HEPATITIS A VACCINES Aged Out No long er eligible based on patient's age to complete this topic HIB VACCINES Aged Out No longer eligi ble based on patient's age to complete this topic MENINGOCOCCAL VACCINES (B) Aged Out N o longer eligible based on patient's age to complete this topic Medical Devices Implanted Type [employer] Device Identifier Shelf Expiration Date Model / Serial / Lot Prosthetic Joint Prosthetic Joint Right: Shoulder Procedures Procedure Name Priority Date/Time Associated Diagnosis Comments MRI ABDOMEN (KIDNEYS) WITH AND WITHOUT CONTRAST Routine 10/25/2024 10:42 AM EDT Renal mass BASIC METABOLIC PANEL (BMP) STAT 12/05/2023 8:35 AM EDT ENDOSCOPY, COLON 04/09/2019 9:02 AM EST from Last 3 Months or Most Recently Relevant to Health Maintenance Results * MRI ABDOMEN (KIDNEYS) WITH AND WITHOUT CONTRAST (10/25/2024 10:42 AM EDT) Anatomical Region Laterality Modality Abdomen Magnetic Resonan ce 10/26/2024 8:02 AM EDT Impressions 10/26/2024 8:15 AM EDT 1. No significant interval change in the left renal lower pole solid mass previously characterized as an oncocytoma. 2. Similar nodular focus of enhancement in the right nephrectomy bed posterior to the duodenum. Narrative 10/26/2024 8:15 AM EDT MRI ABDOMEN (KIDNEYS) WITH AND WITHOUT CONTRAST Referring clinician's provided indication for this examination in [facility]: * Renal mass, normal renal function TECHNIQUE: Multiplanar MR imaging of the abdomen was performed using T1, T2, fat saturated, and diffusion weighted techniques. Dynamic multiphase imaging was also performed after administration of an intravenous gadolinium contrast agent. COMPARISON: April 15, 2024 FINDINGS: Lower Chest: No effusions. Liver: Subcentimeter T2 nonenhancing hyperintensities within the right hepatic lobe are likely reflective of benign cysts. Biliary: No biliary ductal dilatation. Spleen: No splenomegaly or focal lesion. Pancreas: No masses or ductal dilatation. Adrenal Glands: Thickening of the left adrenal gland, unchanged. The right adrenal gland is absent. Kidneys/Ureters: Status post right nephrectomy with a similar 1.1 cm nodular enhancing focus in the nephrectomy bed posterior to the duodenum (1003: 58). There is a 2.6 x 2.7 cm left lower pole enhancing mass, previously diagnosed as an oncocytoma. Unchanged. 4.7 x 3.8 cm left renal midpole cyst with a fluid fluid level within it. Increased left perinephric stranding. Bowel: No dilatation or wall thickening. Peritoneum/Retroperitoneum: No masses or fluid. Lymph Nodes: No lymphadenopathy. Vessels: No abdominal aortic aneurysm. Bones/Soft Tissues: No focal marrow replacing lesions. Procedure Note Helga Ken MD - 10/26/2024 MRI ABDOMEN (KIDNEYS) WITH AND WITHOUT CONTRAST Referring clinician's provided indication for this examination in [facility]: *Renal mass, normal renal function TECHNIQUE: Multiplanar MR imaging of the abdomen was performed using T1,T2, fat saturated, and diffusion weighted techniques. Dynamic multiphaseimaging was also performed after administration of an intravenousgadolinium contrast agent. COMPARISON: April 15, 2024 FINDINGS: Lower Chest: No effusions. Liver: Subcentimeter T2 nonenhancing hyperintensities within the righthepatic lobe are likely reflective of benign cysts. Biliary: No biliary ductal dilatation. Spleen: No splenomegaly or focal lesion. Pancreas: No masses or ductal dilatation. Adrenal Glands: Thickening of the left adrenal gland, unchanged. The rightadrenal gland is absent. Kidneys/Ureters: Status post right nephrectomy with a similar 1.1 cmnodular enhancing focus in the nephrectomy bed posterior to the duodenum(1003: 58). There is a 2.6 x 2.7 cm left lower pole enhancing mass,previously diagnosed as an oncocytoma. Unchanged. 4.7 x 3.8 cm left renalmidpole cyst with a fluid fluid level within it. Increased leftperinephric stranding. Bowel: No dilatation or wall thickening. Peritoneum/Retroperitoneum: No masses or fluid. Lymph Nodes: No lymphadenopathy. Vessels: No abdominal aortic aneurysm. Bones/Soft Tissues: No focal marrow replacing lesions. IMPRESSION: 1. No significant interval change in the left renal lower pole solid masspreviously characterized as an oncocytoma. 2. Similar nodular focus of enhancement in the right nephrectomy bedposterior to the duodenum. us Montero W Fina DO IMG MR ABDOMEN Final Resul t * (ABNORMAL) Basic metabolic panel (12/05/2023 8:35 AM EDT) SODIUM 140 133 - 146 mmol/L [facility] CHLORIDE 108 96 - 108 mmol/L [facility] POTASSIUM 4.3 3.3 - 5.1 mmol/L [facility] Comment:Specimen slightly he molyzed, result may be falsely elevated. CO2 22 21 - 35 mmol/L [facility] BUN 27(H) 6 - 19 mg/dL [facility] CREATININE 1.80(H) 0.5 - 1.5 mg/dL [facility] GLUCOSE 105(H) 70 - 99 mg/dL [facility] CALCIUM 9.1 8.4 - 10.3 mg/dL [facility] EGFR 40(L) >59 mL/min/1.7 3m2 [facility] Comment:Estimated glomerular filtration rate calculated using the CKD-EPI refit equation. ANION GAP 14 10 - 20 mmol/L [facility] Blood 12/05/2023 8:35 AM EDT 12/05/2023 8:40 AM EDT us Heath Davalos MD LAB BLOOD BKR ORDERAB LES Final Result [facility] [address] [place] [address] * ENDOSCOPY, COLON (04/09/2019 9:02 AM EST) Narrative Transcriptions Devonte Najera MD - 04/09/2019 9:02 AM EST Patient Name: Bobo Weinberg Attending MD:: DEVONTE NAJERA MD Procedure Date: 04/09/2019 9:02 AM Date of : 1955 Age: 64 Admit Type: Outpatient Gender: Male Room: [place] [address] Referring MD: Kyrie Cali Exam Type: Colonoscopy Indications: Screening for colorectal malignant neoplasm, Last colonoscopy: 2011 Medications: Monitored Anesthesia Care Procedure: Informed consent was obtained from the patient after discussion of the indications, limitations,alternatives, benefits, and risks of the procedure. Risksspecifically discussed include but are not limited to medication reactions, missed lesions, bleeding, perforation, orthe need for emergent surgery. Throughout the procedure, the patient's blood pressure, pulse, end-tidal CO2, and oxygen saturations were monitored continuously. The Olympus adult variable colonoscope [id number] #2 was introduced through the anus and advanced to theterminal ileum. The colonoscopy was performed withoutdifficulty. The patient tolerated the procedure well. The qualityof the bowel preparation was good. Complications: No immediate complications. Estimated blood loss:None. Findings: The perianal and digital rectal examinations werenormal. [Pertinent Negatives]. Five sessile polyps were found in the sigmoid colon, transverse colon and hepatic flexure. The polyps were 4mm in size. These polyps were removed with a hot snare. Resection was complete, but the polyp tissue was only partially retrieved. A few small-mouthed diverticula were found in thesigmoid colon. The rectum, recto-sigmoid colon, descending colon,splenic flexure, ascending colon, cecum, appendiceal orifice, ileocecal valve, ileum, rectum (on retroflexion) and ascending colon (on retroflexion) appeared normal. Impression: - Five 4 mm polyps in the sigmoid colon, in thetransverse colon and at the hepatic flexure, removed with a hot snare. Complete resection. Partial retrieval. - Diverticulosis in the sigmoid colon. - The rectum, recto-sigmoid colon, descending colon, splenic flexure, ascending colon, cecum, appendiceal orifice, ileocecal valve and terminal ileum arenormal. Recommendation: - Discharge patient to home. - High fiber diet. - Continue present medications. - Await pathology results. - Repeat colonoscopy in 5 years for surveillance. - You have diverticulosis so please eat a high fiberdiet. - I will send you pathology results by letter. If youdo not get results in 3 weeks telephone my office. DEVONTE NAJERA MD 04/09/2019 9:44:00 AM This report has been signed electronically. Number of Addenda: 0 Note Initiated On: 04/09/2019 9:02 AM Procedure Code(s): --- Professional --- 22600, Colonoscopy, flexible; with removal of tumor(s), polyp(s), or other lesion(s) by snare technique --- Technical --- 46446, Colonoscopy, flexible; with removal of tumor(s), polyp(s), or other lesion(s) by snare technique Diagnosis Code(s): --- Professional --- Z12.11, Encounter for screening for malignant neoplasm of colon D12.5, Benign neoplasm of sigmoid colon D12.3, Benign neoplasm of transverse colon (hepatic flexure orsplenic flexure) K57.30, Diverticulosis of large intestine without perforation orabscess without bleeding --- Technical --- Z12.11, Encounter for screening for malignant neoplasm of colon D12.5, Benign neoplasm of sigmoid colon D12.3, Benign neoplasm of transverse colon (hepatic flexure orsplenic flexure) K57.30, Diverticulosis of large intestine without perforation orabscess without bleeding CPT copyright 2018 [employer]. All rights reserved. The codes documented in this report are preliminary and upon oxyhydrogen welder reviewmay be revised to meet current compliance requirements. Procedure Date: 04/09/2019 9:02:[address] [place] [address] Kyrie Cali MD GI PROCEDURE ORDERABLES Fi nal Result from Last 3 Months or Most Recently Relevant to Health Maintenance Insurance [facility] & B [employer] MEDICARE SUPPLEMENT RA FUENTES [id number] [facility] & B [employer] MEDICARE SUPPLEMENT [facility] & B [facility] MEDICARE SUPPLEMENT [facility] & B [employer] MEDICARE SUPPLEMENT [facility] A & B FOR LIFE MEDICARE SUPPLEMENT [facility] Address: [facility] [address] [place] [address] MEDICARE PART A & B FOR LIFE MEDICARE SUPPLEMENT [facility] & [place] [id number] [facility] [place] [address] [facility] MED[facility] A & B [employer] MEDICARE SUPPLEMENT [facility] MED[facility] A & B FOR LIFE MEDICARE SUPPLEMENT Advance Directives For more information, please contact: [phone] (9AM - 5PM [place], Monday-Monday) * Full Code (Latest Code Status on File) Date Activated Date Inactivated Comments 05/21/2021 12:52 PM Question Answer Comments Code Status Confirmed With: Patient Care Teams Technical Healthcare Consultant Relationship Specialty Start Date End Date Nitish Schuster MD [address] [place] [id number] PCP - General Internal Medicine 12/20/23 Winston Harden DO [address] [place] [id number] [email or web address] Hematology and Oncology 12/01/23 Additional Source Comments The information contained in this document represents components of the legal health record. It is not the complete legal health record[facility]
== END 2025-01-13 11:01 | disposition home or self-care (01) ==
LOC: HO.LAB 11:00
PROVIDERS: PCP Internal Medicine; Visit Provider Internal Medicine Nephrology
DX: I12.9 Hypertensive chronic kidney disease with stage 1 through stage 4 chronic kidney disease, or unspecified chronic kidney disease (principal); N18.31 Chronic kidney disease, stage 3a; N28.1 Cyst of kidney, acquired; Z90.5 Acquired absence of kidney
CPT/HCPCS: 36415; 80051; 82306; 82565; 82570; 83970; 84156; 84520

== ENCOUNTER 2025-01-15 11:51 | Outpatient (AMB) | payer OTHER, SELFPAY ==
--- NOTE | 2025-01-15 12:24 | HO.NEPHOV ---
Vital Signs 01/15/25 12:25 Height 5 ft 10 in Weight 258 lb 6 oz BMI 37.1 BP 120/70 Blood Pressure Location Rt brachial Position Sitting Pulse 71 Pulse Source Pulse Oximeter Pulse Oximetry (%) 95 Oxygen Delivery Method Room Air Intake Visit Reasons: 4mon f/u-Conf Production Statistical Clerk Required: No Accompanied by: Self / Same As Patient Allergies No Known Allergies Allergy (Verified 01/15/25 12:25) HPI Comments Details: Bobo was seen in follow up for his chronic kidney disease. He has history of prostate cancer in 2019 which has been treated with external radiation beam therapy. Subsequently was found to have right renal mass and underwent right nephrectomy. He now has a nonmalignant cystic lesion on the left kidney. He was known to have lung nodules which are not metastatic lesions. He has no B symptoms. He closely follows up with Dr. Billy. He does not have any hematuria, dysuria, flank pain, night sweats, weight loss, fever. His serum creatinine had been going up. He does not take nonsteroidal anti-inflammatories on a regular basis. He is known to be hypertensive. He has not a diabetic. He denies chest pain, shortness of breath, paroxysmal nocturnal dyspnea, orthopnea, pedal edema, epistaxis, hemoptysis, photosensitivity, skin rashes, recurrent sinusitis, sore throat, new bone or back pain. He has no history of hepatitis. He had a biopsy of the lesion on the solitary kidney which was found to be benign. His serum creatinine is stable [facility] Medical History Benign neoplasm of unspecified kidney Personal history of malignant neoplasm of renal pelvis Personal history of malignant neoplasm of prostate Nocturia Benign prostatic hyperplasia with lower urinary tract symptoms Surgical History H/O total adrenalectomy History of nephrectomy, right History of tonsillectomy Family History Mother Hypertension Father Hypertension Leukemia Prostate cancer Social History Alcohol intake: current Comment: Rare Patient Tobacco Use Status: Never used Tobacco Review of Systems Const All systems reviewed & are unremarkable except as noted in HPI and below Physical Exam Vital Signs: Last Vital Signs Pulse 71 01/15/25 12:25 BP 120/70 01/15/25 12:25 Pulse Ox 95 01/15/25 12:25 Oxygen Delivery Method Room Air 01/15/25 12:25 BMI result Body Mass Index 37.1 Const General: comfortable and no acute distress Orientation/consciousness: patient oriented x3 HEENT Head: Yes normocephalic Mouth: Normal oral and palatal mucosa present Eyes EOM: EOMs intact bilaterally Neck Neck: Yes supple Resp Auscultation: clear to auscultation bilaterally Cardio Jugular venous distension: no JVD Rate: regular rate GI Palpation (GI): Soft to palpation Auscultation: normal bowel sounds General: Yes no CVA tenderness Back/Spine/Pelvis Back: no CVA tenderness Skin General skin exam: no rashes or lesions noted Neuro General: patient oriented x3 and moves all extremities Extrem General: Yes no pedal edema Results Reviewed Nephrology Results: Hgb, (14.0-18.0) 14.2 g/dl 05/17/24 WBC, (4.8-10.8) 7.0 X10*3/uL 05/17/24 Plt Count, (160-400) 288 X10*3/uL Δ 05/17/24 Sodium, (135-145) 140 mmol/L 01/13/25 Potassium, (3.3-5.1) 4.3 mmol/L 01/13/25 Chloride, (96-108) 106 mmol/L 01/13/25 Carbon Dioxide, (22-29) 27 mmol/L 01/13/25 BUN, (9-16) 29 mg/dL H 01/13/25 Creatinine, (0.5-1.4) 1.90 mg/dL H 01/13/25 PTH Intact, (8.7-77.1) 156.4 pg/mL H 01/13/25 Urine Creatinine 79.79 mg/dL 01/13/25 Protein/Creatinin Ratio, (<0.2) 0.50 H 01/13/25 Renal US 05/19/23 Assessment & Plan Assessment & Plan (1) CKD (chronic kidney disease) stage 3, GFR 30-59 ml/min: Code(s): N18.30 - Chronic kidney disease, stage 3 unspecified Category: Medical Qualifiers: Chronic kidney disease stage 3 subtype: stage 3a (GFR 45-59) Qualified Code(s): N18.31 - Chronic kidney disease, stage 3a (2) Solitary kidney, acquired: Code(s): Z90.5 - Acquired absence of kidney Category: Medical (3) Renal cyst, acquired, left: Code(s): N28.1 - Cyst of kidney, acquired Category: Medical (4) Hypertension: Code(s): I10 - Essential (primary) hypertension Category: Medical Qualifiers: Hypertension type: primary hypertension Qualified Code(s): I10 - Essential (primary) hypertension Plan Bobo has acquired solitary kidney status post right nephrectomy for renal cell carcinoma. He has history of prostate cancer. He has no metastatic lesions. His urine output is good. His volume status is optimal. His blood pressure is not at goal. He should continue losartan 25 mg daily. He does not have any renal artery stenosis by imaging. His last creatinine clearance was 75 mL/minute prior to this OLIVIA. He should maintain good hydration and avoid nonsteroidal anti-inflammatories. He will benefit from weight loss. He will be a great candidate for SGLT2 i. I did not make any other medication changes today. All these have been discussed in detail. Further management is pending evolving data. Answered all questions. Orders: Orders Vitamin D 25-OH Total 4 Months I10 - Essential (primary) hypertension, N18.31 - Chronic kidney disease, stage 3a, N28.1 - Cyst of kidney, acquired, Z90.5 - Acquired absence of kidney Parathyroid Hormone Intact 4 Months I10 - Essential (primary) hypertension, N18.31 - Chronic kidney disease, stage 3a, N28.1 - Cyst of kidney, acquired, Z90.5 - Acquired absence of kidney Creatinine 4 Months I10 - Essential (primary) hypertension, N18.31 - Chronic kidney disease, stage 3a, N28.1 - Cyst of kidney, acquired, Z90.5 - Acquired absence of kidney Blood Urea Nitrogen 4 Months I10 - Essential (primary) hypertension, N18.31 - Chronic kidney disease, stage 3a, N28.1 - Cyst of kidney, acquired, Z90.5 - Acquired absence of kidney Electrolytes 4 Months I10 - Essential (primary) hypertension, N18.31 - Chronic kidney disease, stage 3a, N28.1 - Cyst of kidney, acquired, Z90.5 - Acquired absence of kidney Calcium 4 Months I10 - Essential (primary) hypertension, N18.31 - Chronic kidney disease, stage 3a, N28.1 - Cyst of kidney, acquired, Z90.5 - Acquired absence of kidney Phosphorus 4 Months I10 - Essential (primary) hypertension, N18.31 - Chronic kidney disease, stage 3a, N28.1 - Cyst of kidney, acquired, Z90.5 - Acquired absence of kidney Coding Level of Care Code Est Pt Level 4 (50905) Diagnoses Stage 3a chronic kidney disease N18.31 Chronic kidney disease stage 3 subtype: stage 3a (GFR 45-59) Solitary kidney, acquired Z90.5 Renal cyst, acquired, left N28.1 Primary hypertension I10 Hypertension type: primary hypertension
[2025-01-15 12:25] VITALS: BP 120/70; PULSE 71; O2SAT 95; BMI 37.1
--- OUTSIDE RECORDS SUMMARY | 2025-01-15 14:16 | XMS_ITS | Encounter Summary ---
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 at [address] [address] Winston Harden [address] [address] PAMELLA@[facility] documented as of this encounter Visit Diagnoses Not on filedocumented in this encounter Care Teams Residential Door Installer Relationship Specialty Start Date End Date Nitish Schuster MD [address] [place] [address] PCP - General Internal Medicine 12/20/23 Winston Harden DO [address] [place] [address] PAMELLA@[email or web address] Hematology and Oncology 12/01/23 documented as of this encounter Additional Source Comments The information contained in this document represents components of the legal health record. It is not the complete legal health record.[facility]
--- OUTSIDE RECORDS SUMMARY | 2025-01-15 14:16 | XMS_ITS | Encounter Summary ---
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 Not on file No t on file documented as of this encounter Plan of Treatment Upcoming Encounters Date Type Department Care Team (Late st Contact Info) Description 11/04/2024 Procedure Pass [address] [address] 10/21/2025 9:25 AM EDT Appointment [address] [address] Winston Harden, [address] [address] PAMELLA@[facility] 11/05/2025 2:00 PM EDT Blood Draw [facility] [address] [address] Winston Harden, [address] [address] PAMELLA@[facility] 11/05/2025 3:00 PM EDT Office Visit [facility] at [address] [address] Winston Harden [address] [address] PAMELLA@[facility] documented as of this encounter Visit Diagnoses Not on filedocumented in this encounter Care Teams Light Bulb Assembler Relationship Specialty Start Date End Date Nitish Schuster MD [address] [place] [address] PCP - General Internal Medicine 12/20/23 Wintson Harden DO [address] [place] [address] PAMELLA@[email or web address] Hematology and Oncology 12/01/23 documented as of this encounter Additional Source Comments The information contained in this document represents components of the legal health record. It is not the complete legal health record.[facility]
--- OUTSIDE RECORDS SUMMARY | 2025-01-15 14:16 | XMS_ITS | Encounter Summary ---
Author Organization [facility] Address [address] 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 t on file documented as of this encounter Plan of Treatment Upcoming Encounters Date Type Department Care Team (Late st Contact Info) Description 11/04/2024 Procedure Pass [facility], [facility] [address] [place] [address] 10/21/2025 9:25 AM EDT Appointment [facility], Mri - [address] [address] Winston Harden, DO [address] [place] [address] [email or web address]@[email or web address] 11/05/2025 2:00 PM EDT Blood Draw [facility] Phleb [address] [address] Winston Harden, DO [address] [place] [address] PAMELLA@[email or web address] 11/05/2025 3:00 PM EDT Office Visit [facility] at [address] [address] Winston Harden, [address] [address] PAMELLA@[email or web address] documented as of this encounter Results * MRI Abdomen Outside (No Interpretation) (04/23/2021 12:00 AM EST) Narrative SYSTEMGENERATED, DOCUMENTATION - 05/25/2021 6:03 PM EDT This study is for PACS storage only and not for interpretation. us Provider Not In System PhD IMG OUTSIDE IMAGING W /OUT INTERPRETATION Final Result documented in this encounter Visit Diagnoses Not on filedocumented in this encounter Care Teams Assistant Public Defender Relationship Specialty Start Date End Date Kyrie Cali NP [address] [place] [address] PCP - General Family Medicine 04/09/19 12/19/23 Nitish Schuster MD [address] [place] [address] PCP - General Internal Medicine 12/20/23 Winston Harden DO [address] [place] [address] PAMELLA@[email or web address] Hematology and Oncology 12/01/23 documented as of this encounter Additional Source Comments The information contained in this document represents components of the legal health record. It is not the complete legal health record.[facility]
--- OUTSIDE RECORDS SUMMARY | 2025-01-15 14:16 | XMS_ITS | Encounter Summary ---
Author Organization [facility] Address [address] [address] Phone Care Team Providers Care Apparatus Lineman Name Role Phone Kyrie Cali NP Primary Care Provide r Winston Harden DO Unavailable [phone] Nitish Schuster MD Primary Care Provider + Encounter Details Date Type Department Care Team (Latest Contact Info) Description 09/12/2019 Transcribe Orders Virtual Department [address] [place] [address] Kyrie Cali, KATE [address] [place] [address] Right shoulder pain, unspecified chronicity (Primary Dx) [...] st Contact Info) Description 11/04/2024 Procedure Pass [address] [address] 10/21/2025 9:25 AM EDT Appointment [address] [place] [address] Fina Montero Ruby, DO [address] [place] [address] PAMELLA@[facility] 11/05/2025 2:00 PM EDT Blood Draw [facility] Phleb [address] [address] Winston Harden, DO [address] [place] [address] PAMELLA@[facility] 11/05/2025 3:00 PM EDT Office Visit [facility] at [address] [address] Winston Harden, [address] [address] PAMELLA@[facility] documented as of this encounter Visit Diagnoses Diagnosis Right shoulder pain, unspecified chronicity- Primary documented in this encounter Care Teams Apparatus Lineman Relationship Specialty Start Date End Date Kyrie Cali NP [address] [place] [address] PCP - General Family Medicine 04/09/19 12/19/23 Nitish Schuster MD [address] [place] [address] PCP - General Internal Medicine 12/20/23 Winston Harden DO [address] [place] [address] PAMELLA@[facility] Hematology and Oncology 12/01/23 documented as of this encounter Additional Source Comments The information contained in this document represents components of the legal health record. It is not the complete legal health record.[facility]
--- OUTSIDE RECORDS SUMMARY | 2025-01-15 14:16 | XMS_ITS | Encounter Summary ---
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 No t on file documented as of this encounter Plan of Treatment Upcoming Encounters Date Type Department Care Team (Late st Contact Info) Description 11/04/2024 Procedure Pass [address] [address] 10/21/2025 9:25 AM EDT Appointment [address] [place] [address] Fina Winston Ruby, DO [address] [place] [address] LIDYARADHALENNIE@[facility] 11/05/2025 2:00 PM EDT Blood Draw [facility] Phleb [address] [address] Winston Harden, DO [address] [place] [address] LIDYARADHALENNIE@[facility] 11/05/2025 3:00 PM EDT Office Visit [facility] at [address] [address] Winston Harden, [address] [address] PAMELLA@[facility] documented as of this encounter Visit Diagnoses Not on filedocumented in this encounter Care Teams Engine Assembly Supervisor Relationship Specialty Start Date End Date Kyrie Cali NP [address] [place] [address] PCP - General Family Medicine 04/09/19 12/19/23 Nitish Schuster MD [address] [place] [address] PCP - General Internal Medicine 12/20/23 Winston Harden DO [address] [place] [address] PAMELLA@[email or web address] Hematology and Oncology 12/01/23 documented as of this encounter Additional Source Comments The information contained in this document represents components of the legal health record. It is not the complete legal health record.[facility]
--- OUTSIDE RECORDS SUMMARY | 2025-01-15 14:17 | XMS_ITS | Encounter Summary ---
Author Organization [facility] Address [address] [place] [address] Phone Care Team Providers Care Osteopathy Doctor Name Role Phone Kyrie Cali NP Primary Care Provide r Winston Harden DO Unavailable [phone] Nitish Schuster MD Primary Care Provider + [...] C-/C+ Jose Billy MD Phone: tel: fax: mailto:[email or web address] Referral ID Status Reason Start Date Expiration Date Visits Re quested Visits Authorized [id number] Closed 05/13/2021 10/26/2021 1 1 Encounter Details Date Type Department Care Team (Latest Contact Info) Description 05/13/2021 Transcribe Orders [facility] Department [address] [place] [address] Jose Billy MD [address] [place] [address], [address] [address] Neoplasm of uncertain behavior of kidney, unspecified [...] st Contact Info) Description 11/04/2024 Procedure Pass [address] [address] 10/21/2025 9:25 AM EDT Appointment [address] [address] Winston Harden, [address] [address] PAMELLA@[email or web address] 11/05/2025 2:00 PM EDT Blood Draw [facility] Phleb [address] [address] Winston Harden, [address] [address] PAMELLA@[facility] 11/05/2025 3:00 PM EDT Office Visit [facility] at [address] [address] Winston Harden, [address] [address] PAMELLA@[facility] documented as of this encounter Results [...] laterality documented in this encounter Care Teams Osteopathy Doctor Relationship Specialty Start Date End Date Kyrie Cali NP [address] [place] [address] PCP - General Family Medicine 04/09/19 12/19/23 Nitish Schuster MD [address] [place] [address] PCP - General Internal Medicine 12/20/23 Winston Harden DO [address] [place] [address] PAMELLA@[email or web address] Hematology and Oncology 12/01/23 documented as of this encounter Additional Source Comments The information contained in this document represents components of the legal health record. It is not the complete legal health record.[facility]
--- OUTSIDE RECORDS SUMMARY | 2025-01-15 14:17 | XMS_ITS | Encounter Summary ---
Author Organization [facility] Address [address] [facility] [address] [place] [address] Phone Care Team Providers Care Furniture Polisher Name Role Phone Kyrie Clai NP Primary Care Provide r Winston Harden DO Unavailable [phone] Nitish Schuster MD Primary Care Provider + Encounter Details Date Type Department Care Team (Late st Contact Info) Description 05/21/2021 Procedure Pass [place] Admitting Dept - Virtual Department [address] [place] [address] Social History Tobacco Use Types Packs/Day Years [...] 5:19 PM EDT Angi Marr RN * [place] Suicide Severity Rating Scale (Screener/Recent Self-Report) Question [...] st Contact Info) Description 11/04/2024 Procedure Pass [address] [address] 10/21/2025 9:25 AM EDT Appointment [address] [address] Winston Harden, [address] [address] PAMELLA[facility] 11/05/2025 2:00 PM EDT Blood Draw [facility] Phleb [address] [address] Winston Harden, [address] [address] PAMELLA@[facility] 11/05/2025 3:00 PM EDT Office Visit [facility] at [address] [address] Winston Harden, [address] [address] PAMELLA@[facility] documented as of this encounter Visit Diagnoses Not on filedocumented in this encounter Care Teams Furniture Polisher Relationship Specialty Start Date End Date Kyrie Cali NP [address] [place] [address] PCP - General Family Medicine 04/09/19 12/19/23 Nitish Schuster MD [address] [place] [address] PCP - General Internal Medicine 12/20/23 Winston Harden DO [address] [place] [address] PAMELLA@[email or web address] Hematology and Oncology 12/01/23 documented as of this encounter Additional Source Comments The information contained in this document represents components of the legal health record. It is not the complete legal health record.[facility]
--- OUTSIDE RECORDS SUMMARY | 2025-01-15 14:17 | XMS_ITS | Encounter Summary ---
Author Organization [facility] Address [address] [place] [address] Phone Care Team Providers Care Bottom Finisher Name Role Phone Kyrie Cali NP Primary Care Provide r Winston Harden DO Unavailable [phone] Nitish Schuster MD Primary Care Provider + Encounter Details Date Type Department Care Team (Late st Contact Info) Description 04/09/2019 Procedure Pass [facility] Endoscopy Admitting Dept Virtual Department [address] [place] [address] Social History Tobacco Use Types Packs/Day Years [...] st Contact Info) Description 11/04/2024 Procedure Pass [address] [address] 10/21/2025 9:25 AM EDT Appointment [address] [address] Winston Harden, DO [address] [place] [address] LIDYARADHALENNIE@[email or web address] 11/05/2025 2:00 PM EDT Blood Draw [facility] Phleb [facility] [address] [place] [address] Winston Harden, DO [address] [place] [address] [email or web address]@[email or web address] 11/05/2025 3:00 PM EDT Office Visit [facility] Center at [place] [address] [place] [address] Winston Harden, [address] [place] [address] PAMELLA@[facility] documented as of this encounter Visit Diagnoses Not on filedocumented in this encounter Care Teams Bottom Finisher Relationship Specialty Start Date End Date Kyrie Cali NP [address] [place] [address] PCP - General Family Medicine 04/09/19 12/19/23 Nitish Schuster MD [address] [place] [address] PCP - General Internal Medicine 12/20/23 Winston Harden DO [address] [place] [address] PAMELLA@[email or web address] Hematology and Oncology 12/01/23 documented as of this encounter Additional Source Comments The information contained in this document represents components of the legal health record. It is not the complete legal health record.[facility]
--- OUTSIDE RECORDS SUMMARY | 2025-01-15 14:17 | XMS_ITS | Encounter Summary ---
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 on file No t on file documented as of this encounter Plan of Treatment Upcoming Encounters Date Type Department Care Team (Late st Contact Info) Description 11/04/2024 Procedure Pass [address] [address] 10/21/2025 9:25 AM EDT Appointment [address] [address] Winston Harden, [address] [address] [email or web address] 11/05/2025 2:00 PM EDT Blood Draw [facility] Phleb [address] [address] Winston Harden, [address] [address] [email or web address]@[email or web address] 11/05/2025 3:00 PM EDT Office Visit [facility] at [address] [address] Winston Harden, [address] [address] [email or web address]@[email or web address] documented as of this encounter Visit Diagnoses Not on filedocumented in this encounter Care Teams Bariatric Nurse Relationship Specialty Start Date End Date Kyrie Cali NP [address] [place] [address] PCP - General Family Medicine 04/09/19 12/19/23 Nitish Schuster MD [address] [place] [address] PCP - General Internal Medicine 12/20/23 Winston Harden DO [address] [place] [address] [email or web address] Hematology and Oncology 12/01/23 documented as of this encounter Additional Source Comments The information contained in this document represents components of the legal health record. It is not the complete legal health record.[facility]
--- OUTSIDE RECORDS SUMMARY | 2025-01-15 14:17 | XMS_ITS | Encounter Summary ---
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 on file No t on file documented as of this encounter Plan of Treatment Upcoming Encounters Date Type Department Care Team (Late st Contact Info) Description 11/04/2024 Procedure Pass [address] [address] 10/21/2025 9:25 AM EDT Appointment [address] [address] Winston Harden, [address] [address] [email or web address] 11/05/2025 2:00 PM EDT Blood Draw [facility] Phleb [address] [address] Winston Harden [address] [address] PAMELLA@[email or web address] 11/05/2025 3:00 PM EDT Office Visit [facility] at [address] [address] Winston Harden [address] [address] PAMELLA@[email or web address] documented as of this encounter Visit Diagnoses Not on filedocumented in this encounter Care Teams Gas Meter Prover Relationship Specialty Start Date End Date Kyrie Cali NP [address] [place] [address] PCP - General Family Medicine 04/09/19 12/19/23 Nitish Schuster MD [address] [place] [address] PCP - General Internal Medicine 12/20/23 Winston Harden DO [address] [place] [address] PAMELLA@[email or web address] Hematology and Oncology 12/01/23 documented as of this encounter Additional Source Comments The information contained in this document represents components of the legal health record. It is not the complete legal health record.[facility]
--- OUTSIDE RECORDS SUMMARY | 2025-01-15 14:17 | XMS_ITS | Encounter Summary ---
Author Organization [facility] Address [address] [address] Phone Care Team Providers Care Topographical Surveyor Name Role Phone Kyrie Cali NP Primary Care Provide r Winston Harden DO Unavailable [phone] Nitish Schuster MD Primary Care Provider + Reason for Referral * MRI/CAT Scan - Closed Specialty Diagnoses / Procedures Referred By Contac t Referred To Contact Radiology Diagnoses Right shoulder pain, unspecified chronicity Procedures MRI Shoulder (Right) Kyrie Cali NP [address] [place] [address] Phone: tel: fax: Referral ID Status Reason Start Date Expiration Date Visits Re quested Visits Authorized [id number] Closed 02/25/2020 04/25/2020 1 1 Encounter Details Date Type Department Care Team (Latest Contact Info) Description 02/25/2020 Transcribe Orders Virtual Department [address] [place] [address] Kyrie Cali NP [address] [place] [address] Right shoulder pain, unspecified chronicity (Primary Dx) [...] st Contact Info) Description 11/04/2024 Procedure Pass [address] [address] 10/21/2025 9:25 AM EDT Appointment [address] [address] Winston Harden, [address] [address] [email or web address]@[email or web address] 11/05/2025 2:00 PM EDT Blood Draw [facility] Phleb [address] [address] Winston Harden, [address] [address] PAMELLA@[email or web address] 11/05/2025 3:00 PM EDT Office Visit [facility] at [address] [address] Winston Harden [address] [address] PAMELLA@[email or web address] documented as of this encounter Results * [...] chronicity documented in this encounter Care Teams Topographical Surveyor Relationship Specialty Start Date End Date Kyrie Cali NP [address] [place] [address] PCP - General Family Medicine 04/09/19 12/19/23 Nitish Schuster MD [address] [place] [address] PCP - General Internal Medicine 12/20/23 Winston Harden DO [address] [place] [address] [email or web address] Hematology and Oncology 12/01/23 documented as of this encounter Additional Source Comments The information contained in this document represents components of the legal health record. It is not the complete legal health record.[facility]
--- OUTSIDE RECORDS SUMMARY | 2025-01-15 14:17 | XMS_ITS | Encounter Summary ---
Author Organization [facility] Address [address] [place] [address] Phone Care Team Providers Care Corporate Licensed Broker Name Role Phone Kyrie Cali NP Primary Care Provide r Winston Harden DO Unavailable [phone] Nitish Schuster MD Primary Care Provider + Encounter Details Date Type Department Care Team (Late st Contact Info) Description 02/25/2020 Procedure Pass [address] [address] Social History Tobacco Use Types Packs/Day Years [...] st Contact Info) Description 11/04/2024 Procedure Pass [address] [address] 10/21/2025 9:25 AM EDT Appointment [address] [address] Winston Harden, DO [address] [place] [address] [email or web address] 11/05/2025 2:00 PM EDT Blood Draw [facility] Phle[facility] [address] [place] [address] Winston Harden, DO [address] [place] [address] [email or web address] 11/05/2025 3:00 PM EDT Office Visit [facility] at [place] [place] [address] iWnston Harden DO [address] [place] [address] PAMELLA@[email or web address] documented as of this encounter Visit Diagnoses Not on filedocumented in this encounter Care Teams Corporate Licensed Broker Relationship Specialty Start Date End Date Kyrie Cali NP [address] [place] [address] PCP - General Family Medicine 04/09/19 12/19/23 Nitish Schuster MD [address] [place] [address] PCP - General Internal Medicine 12/20/23 Winston Harden DO [address] [place] [address] [email or web address]@[email or web address] Hematology and Oncology 12/01/23 documented as of this encounter Additional Source Comments The information contained in this document represents components of the legal health record. It is not the complete legal health record.[facility]
--- OUTSIDE RECORDS SUMMARY | 2025-01-15 14:18 | XMS_ITS | Clinical Summary ---
Author Organization [facility] Address [address] [place] [facility] [address] [place] [address] Phone Care Team Providers Care Legal Intern Name Role Phone Winston Harden DO Unavailable [phone] Nitish Schuster MD Primary Care Provider + Allergies [...] Active vitamins A,C,E-zinc-dain er ([employer]ERV[employer] AREDS) [id number] ufxf-qo-lvnm Cap Take 1 capsule by mouth 2 [...] cN0, cM0, PSA: 8.6, Grade Group: 1, [place]: 3, +: 3) - Signed by Rodrick [...] Description 11/04/2024 2:30 PM EDT Office Visit [facility] at [address] [address] Winston Harden DO Renal mass (Primary Dx) 10/25/2024 9:41 AM EDT - 10/25/2024 11:59 PM EDT Hospital Encounter [facility], [address] [address] Winston Harden, Discharge Disposition: Home or Self Care 04/25/2024 Procedure Pass [address] [address] from Last 3 Months Immunizations Immunization Administration Dates Next Due Anthrax 09/02/2003, 3,03/19/2002,02/18,02/02/2002 Influenza Quadrivalent Adjuv anted Preservative Free IM 12/24/2020 Influenza Quadrivalent Prese rvative Free IM 12/07/2018 Influenza, Unspecified Formulation 12/29/2021, MMR 11/12/2002,06/24/1998 Meningococcal MPSV4 06/24/1998 Novel [id number], Injectable 06/13/2009 Pneumococcal polysaccharide PPSV23 09/02/2019 Tdap [...] Job Start Date Job End Date 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 Not on file Not on file No [...] st Contact Info) Description 11/04/2024 Procedure Pass [facility], [address] [address] 10/21/2025 9:25 AM EDT Appointment [address] [address] Winston Harden, [address] [address] PAMELLA@[email or web address] 11/05/2025 2:00 PM EDT Blood Draw [facility] Phleb [address] [address] Winston Harden, [address] [address] PAMELLA@[email or web address] 11/05/2025 3:00 PM EDT Office Visit [facility] at [address] [address] Winston Harden, [address] [address] PAMELLA@[email or web address] Health Maintenance Due Date Last Done [...] this topic Medical Devices Implanted Type Area Grader Green Meat Device Identifier Shelf Expiration Date Model / [...] clinician's provided indication for this examination in [facility]: * Renal mass, normal renal function [...] clinician's provided indication for this examination in [facility]: *Renal mass, normal renal function TECHNIQUE: [...] EDT) SODIUM 140 133 - 146 mmol/L [facility] CHLORIDE 108 96 - 108 mmol/L [facility] POTASSIUM 4.3 3.3 - 5.1 mmol/L [facility] Comment:Specimen slightly he molyzed, result may be falsely elevated. CO2 22 21 - 35 mmol/L [facility] BUN 27(H) 6 - 19 mg/dL [facility] CREATININE 1.80(H) 0.5 - 1.5 mg/dL [facility] GLUCOSE 105(H) 70 - 99 mg/dL [facility] CALCIUM 9.1 8.4 - 10.3 mg/dL [facility] EGFR 40(L) >59 mL/min/1.7 3m2 [facility] Comment:Estimated glomerular filtration rate calculated using the CKD-EPI refit equation. ANION GAP 14 10 - 20 mmol/L [facility] Blood 12/05/2023 8:35 AM EDT 12/05/2023 8:40 AM EDT us Heath Davalos MD LAB BLOOD BKR ORDERAB LES Final Result [facility] [address] [place] [address] * ENDOSCOPY, COLON (04/09/2019 9:02 AM EST) Narrative Transcriptions Devonte Najera MD - 04/09/2019 9:02 AM EST Patient Name: Bobo Weinberg Attending MD:: DEVONTE NAJERA MD Procedure Date: 04/09/2019 9:02 AM Date of : 1955 Age: 64 Admit Type: Outpatient Gender: Male Room: [place] [address] Referring MD: Kyrie Cali Exam Type: Colonoscopy [...] monitored continuously. The Olympus adult variable colonoscope [id number] #2 was introduced through the anus and [...] 9:02 AM Procedure Code(s): --- Professional --- 23764, Colonoscopy, flexible; with removal of tumor(s), polyp(s), or other lesion(s) by snare technique --- Technical --- 79302, Colonoscopy, flexible; with removal of tumor(s), polyp(s), [...] perforation orabscess without bleeding CPT copyright 2018 [employer]. All rights reserved. The codes documented in this report are preliminary and upon auditing coder reviewmay be revised to meet current compliance requirements. Procedure Date: 04/09/2019 9:02:[address] [place] [address] Kyrie Cali MD GI PROCEDURE ORDERABLES Fi nal Result from Last 3 Months or Most Recently Relevant to Health Maintenance Insurance [facility] MEDICARE PART A & B [employer] MEDICARE SUPPLEMENT RA FUENTES [id number] [facility] MEDICARE PART A & B [employer] MEDICARE SUPPLEMENT [facility] MEDICARE PART A & B [facility] MEDICARE SUPPLEMENT [facility] MEDICARE PART A & B [employer] MEDICARE SUPPLEMENT [facility] MEDICARE PART A & B [employer] MEDICARE SUPPLEMENT [facility] MEDICARE PART A & B [employer] MEDICARE SUPPLEMENT [facility] MEDICARE PART A & [place] [id number] [facility] [place] [id number] [facility] MEDICARE PART A & B [employer] MEDICARE SUPPLEMENT [facility] MEDICARE PART A & B [employer] MEDICARE SUPPLEMENT Advance Directives For more information, please contact: [phone] (9AM - 5PM [place], Monday-Monday) * Full Code (Latest Code Status on File) Date Activated Date Inactivated Comments 05/21/2021 12:52 PM Question Answer Comments Code Status Confirmed With: Patient Care Teams Legal Intern Relationship Specialty Start Date End Date Nitish Schuster MD [address] [place] [address] PCP - General Internal Medicine 12/20/23 Winston Harden DO [address] [place] [address] [email or web address] Hematology and Oncology 12/01/23 Additional Source Comments The information contained in this document represents components of the legal health record. It is not the complete legal health record.[facility]
== END 2025-01-15 12:41 | disposition home or self-care (01) ==
LOC: HO.HKA 11:52
PROVIDERS: PCP Internal Medicine; Visit Provider Internal Medicine Nephrology
DX: N18.31 Chronic kidney disease, stage 3a (principal); Z90.5 Acquired absence of kidney; N28.1 Cyst of kidney, acquired; I10 Essential (primary) hypertension
CPT/HCPCS: 99214

== ENCOUNTER → 2025-01-15 11:51 | Outpatient (BNVA) | payer OTHER, SELFPAY | PROVIDERS: PCP Internal Medicine; Visit Provider Internal Medicine Nephrology | DX: I12.9 Hypertensive chronic kidney disease with stage 1 through stage 4 chronic kidney disease, or unspecified chronic kidney disease (principal); N18.31 Chronic kidney disease, stage 3a; N28.1 Cyst of kidney, acquired; Z90.5 Acquired absence of kidney; Z79.899 Other long term (current) drug therapy; Z85.46 Personal history of malignant neoplasm of prostate; Z85.53 Personal history of malignant neoplasm of renal pelvis | CPT/HCPCS: 99212 ==